=== PATIENT | female | born 1970 | race Caucasian/White ===

== ENCOUNTER 2021-07-30 09:30 | Outpatient (CLI) | payer BC, SELFPAY ==
--- NOTE | ~2021-07-30 | CT_ITS ---
EXAMINATION: CT diagnostic chest w con DATE: 07/30/2021 09:55 INDICATION: Lung nodule, history of colon cancer TECHNIQUE: Transaxial computed tomographic images of the chest were obtained after the administration of 75 cc of Omnipaque 350 intravenous contrast. The dose-length product (DLP) was 325.35 mGy-cm. Ite rative reconstruction was used. COMPARISON: None FINDINGS: There is a 7 mm lymph node associated with the minor fissure. There is mild atelectasis of the lungs. No pleural effusion or pneumothorax is identified. A right internal jugular Port-A-Cath en ds with its tip in the distal superior vena cava. No pathologically enlarged thoracic lymph nodes are identified. The heart size is normal. There is mild thoracic spondylosis. IMPRESSION: 1. No acute cardiopulmonary abnormality. Reviewed, dictated and finalized at location B.
== END 2021-07-30 09:31 | disposition home or self-care (01) ==
LOC: ANHIMG 09:33
PROVIDERS: PCP Internal Medicine; Visit Provider Internal Medicine Hematology & Oncology
DX: R91.1 Solitary pulmonary nodule (principal)
CPT/HCPCS: 71260; Q9967

== ENCOUNTER 2021-09-27 13:50 | Outpatient (CLI) | payer BC, SELFPAY ==
[2021-09-27 14:30] LABS: Appearance Urine Clear (Clear); Bilirubin Urine Negative (Negative); Blood Urine Trace-lysed (Negative); Color Urine Yellow (Yellow); Glucose Urine UA Negative (Negative); Ketones Urine Negative (Negative); Leukocyte Esterase Ur 1+ LEU/UL (Negative); Nitrate Urine Negative (Negative); Protein Urine Negative (Negative); Specific Grav Ur 1.015 (1.001-1.035); Urobilinogen Urine 0.2 mg/dL (<2.0)
[2021-09-27 14:37] LABS: Bacteria Urine Trace /hpf; Mucus Urine Rare /lpf; RBC Urine 0-2 /hpf (0-2); Squamous Epithelial Cell Urine Few /hpf (Few)
[2021-09-27 14:40] LABS: Add Urine Microscopic? YES
== END 2021-09-27 13:51 | disposition home or self-care (01) ==
PROVIDERS: PCP Internal Medicine; Visit Provider Internal Medicine
DX: R30.0 Dysuria (principal)
CPT/HCPCS: 81001; 87086

== ENCOUNTER 2021-12-07 08:28 | Outpatient (CLI) | payer BC, SELFPAY ==
--- NOTE | ~2021-12-07 | CT_ITS ---
EXAMINATION: CT abdomen pelvis w con DATE: 12/07/2021 08:53 INDICATION: Malignant neoplasm of transverse colon. TECHNIQUE: Computed tomography (CT) of the abdomen and pelvis was performed with 100 mL Omnipaque 350 intravenous contrast. Automated exposure control and iterative reconstruction technique were employe d. The dose-length product was 1422.99 mGy-cm. COMPARISON: Chest CT 07/30/2021 FINDINGS: The visualized portions of the lung bases are clear without pneumonia or pleural effusion. The heart size is normal. No pericardial effusion. There is diffuse hepatic steatosis. The gallbladde r, spleen, pancreas, adrenal glands, and kidneys are normal. There is diverticulosis of the colon wit hout evidence of diverticulitis. There is an anastomosis in the hepatic flexure of the colon. There a re no dilated loops of bowel. The appendix is normal. There are no pathologically enlarged lymph node s. There is no free intraperitoneal fluid. There is thoracolumbar levoscoliosis and mild spondylosis. IMPRESSION: 1. No evidence of metastatic disease. Reviewed, dictated and finalized at location A.
== END 2021-12-07 08:29 | disposition home or self-care (01) ==
PROVIDERS: PCP Internal Medicine; Visit Provider Internal Medicine Hematology & Oncology
DX: C18.4 Malignant neoplasm of transverse colon (principal)
CPT/HCPCS: 74177; Q9967

== ENCOUNTER 2021-12-21 11:01 | Outpatient (CLI) | payer BC, SELFPAY ==
[2021-12-21 11:52] LABS: Appearance Urine Cloudy (Clear); Bilirubin Urine Negative (Negative); Blood Urine 2+ (Negative); Glucose Urine UA Negative (Negative); Ketones Urine Negative (Negative); Leukocyte Esterase Ur 3+ LEU/UL (Negative); Nitrate Urine Positive (Negative); Protein Urine Negative (Negative); Specific Grav Ur 1.015 (1.001-1.035); Urobilinogen Urine 0.2 mg/dL (<2.0)
[2021-12-21 11:57] LABS: Add Urine Microscopic? YES; Color Urine Light Yellow (Yellow)
[2021-12-21 12:01] LABS: Bacteria Urine Trace /hpf; Squamous Epithelial Cell Urine Rare /hpf (Few); WBC Urine >75 /hpf
== END 2021-12-21 11:02 | disposition home or self-care (01) ==
LOC: ANHLAB 11:02
PROVIDERS: PCP Internal Medicine; Visit Provider Internal Medicine
DX: R30.0 Dysuria (principal)
CPT/HCPCS: 81001; 87077; 87086; 87186

== ENCOUNTER 2022-03-02 09:00 | Outpatient (RCR) | payer BC, SELFPAY ==
--- NOTE | 2022-01-31 16:11 | PTOPEVAL1 ---
Assessment and note entered by Ana Lim, PT, DPT Evaluation Information Assessment Status Evaluation Diagnosis back pain Onset 8-9 years Subjective Information Pt states she has had back pain for a while now, she states throughout the middle of her back down to her R hip. Pt recently finished chemo treatments and this saw some arthritis on her spine . Pt states she usually just pushed through the pain when she is hurting. She states she likes to exercise and would like to do so but her back pain is a limiting factor. Reported Pain Level Pain Score 3: Self Report Assessment PT Clinical Summary Mary presents to therapy today for her initial evaluation with a diagnosis of low back pain. Today she demonstrates an increased lumbar lordosis in standing and this is when she reports her most difficultly, along with carrying her grandson. She demonstrates a mildly weak core as well as hip abductors. Skilled physical therapy services are indicated to education on body mechanics, practice safe lifting techniques, for general strengthening, to manage pain, and to return to baseline function. Plan of Care Interventions Manual Therapy,Neuro Re-education,Patient/ Caregiver Educati,Therapeutic Activities, Therapeutic Exercise PT Services Indicated Yes Treatment Frequency and 1x/wk for 4 wks Duration These treatments will address the objective and functional deficits as defined above. The patient will be advanced safely and appropriately in order for the patient to progress towards his/her prior level of function. Additional exercises will be introduced and as well as a comprehensive home exercise program upon discharge, if needed, ?to ensure carryover of functional gains achieved in the clinic. This treatment plan has been reviewed and agreement upon by the patient.
--- NOTE | 2022-02-18 10:07 | PCPTNOTE ---
Patient called day of appointment to cancel due to her being ill and needing to stay home to take care of him.
--- NOTE | 2022-03-02 09:43 | PTOPDC ---
Assessment and note entered by Ana Lim, PT, DPT Evaluation Information Assessment Status Discharge Diagnosis back pain Onset 8-9 years Subjective Information Pt states she is feeling better. She states she knows what techniques to implement when she is in pain. She states it is amazing how quickly she has been results. She kept her grandson for 3 days and was carrying him and taking care of him, without an increase in symptoms. She states she does not have any back stiffness at this time. pt reports 90% improvement in overall symptoms. Pt states therapy has been life changing. Reported Pain Level Pain Score 0: Self Report Assessment PT Clinical Summary Mary presents to therapy today for her progress report following 3 visits of skilled therapy and participation in a home exercise program to treat her diagnosis of low back pain. Today she report 0 /10 pain in the last week, 90% improvement, and no functional limitations. She reports excellent compliance with her HEP. She has progressed her lumbar ROM to WNL, improved her kylah LE strength, and improved her body awareness. She no longer requires skilled therapy services and will be discharged at this time. Plan of Care PT Services Indicated No Treatment Frequency and to be discharged Duration
== END 2022-03-03 16:37 | disposition home or self-care (01) ==
LOC: ANHGOSHPT 09:00
PROVIDERS: PCP Internal Medicine; Visit Provider Internal Medicine
DX: M54.9 Dorsalgia, unspecified (principal)
CPT/HCPCS: 97110; 97112; 97140; 97161; 97530

== ENCOUNTER 2022-03-14 13:56 | Outpatient (CLI) | payer BC, SELFPAY ==
--- NOTE | ~2022-03-14 | CT_ITS ---
EXAMINATION: CT abdomen pelvis w con DATE: 03/14/2022 14:49 INDICATION: Colon cancer. TECHNIQUE: Computed tomography (CT) of the abdomen and pelvis was performed with 100 mL Omnipaque 350 intravenous contrast. Automated exposure control and iterative reconstruction technique were employe d. The dose-length product was 1267.41 mGy-cm. COMPARISON: CT abdomen and pelvis 12/07/2021 FINDINGS: The visualized portions of the lung bases demonstrate mild atelectasis. No pleural effusion . The heart size is normal. No pericardial effusion. There is diffuse hepatic steatosis, worst at the hilum and adjacent to ligamentum teres. The gallbladder, spleen, pancreas, adrenal glands, and kidne ys are normal. There is a 2.9 cm cyst in right ovary, likely benign. There is diverticulosis of the c olon without evidence of diverticulitis. There is an anastomosis in the splenic flexure of the colon. The appendix is normal. There are no pathologically enlarged lymph nodes. There is no free intraperi toneal fluid. There is thoracolumbar levoscoliosis and mild spondylosis. IMPRESSION: 1. No specific evidence of metastatic disease. Reviewed, dictated and finalized at location A. LASTER
[2022-03-14 15:48] LABS: Basophils Percent Auto 0.4 % (0.2-1.2); Eosinophils Absolute Auto 0.1 K/mm3 (0-0.3); Eosinophils Percent Auto 1.7 % (0-4.4); Hematocrit 39.7 % (37.0-47.0); Hemoglobin 13.2 g/dL (12.0-15.0); Immature Granulocyte Absolute 0.01 K/mm3 (0.00-0.031); Immature Granulocyte Percent A 0.2 % (0-0.5); Lymphocytes Absolute Auto 1.73 K/mm3 (0.9-3.2); Lymphocytes Percent Auto 33.1 % (18.3-44.2); Mean Corpuscular HGB Conc 33.2 g/dl (32-36); Mean Corpuscular Hemoglobin 30.7 pg (26-34); Mean Corpuscular Volume 92.3 fl (80-100); Mean Platelet Volume 9.1 fl (7.4-10.4); Monocytes Absolute Auto 0.2 K/mm3 (0.1-0.6); Monocytes Percent Auto 4.6 % (2.6-8.5); Neutrophils Absolute Auto 3.1 K/mm3 (1.3-6.7); Platelet Count Result 195 k/mm3 (150-375); Red Cell Distribution Width 11.9 % (11.5-14.5); White Blood Count 5.2 K/mm3 (4.5-10.0)
[2022-03-14 15:58] LABS: Alanine Aminotransferase 25 U/L (6-35); Albumin Level 5.1 g/dL (3.5-5.1); Alkaline Phosphatase 105 U/L (38-126); Anion Gap 15 mmol/L (8-16); Aspartate Amino Transferase 31 U/L (14-36); Bilirubin,Total 0.5 mg/dL (0.2-1.3); Blood Urea Nitrogen 7 mg/dL (7-17); Calcium 9.2 mg/dL (8.4-10.2); Carbon Dioxide 29 mmol/L (22-30); Chloride 98 mmol/L (98-107); Cholesterol 271 mg/dL (0-200); Estimated Glomerular Filt Rate > 60; Glucose 97 mg/dL (65-110); HDL Direct 44 mg/dL; Potassium 3.7 mmol/L (3.4-5.0); Sodium 142 mmol/L (137-145); Triglycerides 124 mg/dL (<150)
[2022-03-14 15:59] LABS: Hemoglobin A1C 5.6 % (<5.7)
[2022-03-14 16:09] LABS: LDL Cholesterol Direct 152 mg/dL
[2022-03-14 16:48] LABS: Carcinoembryonic Antigen 1.9 ng/mL (0.0-3.0)
== END 2022-03-14 13:57 | disposition home or self-care (01) ==
PROVIDERS: Clinical Nurse Specialist; PCP Internal Medicine; Visit Provider Internal Medicine Hematology & Oncology
DX: R73.9 Hyperglycemia, unspecified (principal); C18.4 Malignant neoplasm of transverse colon; E78.5 Hyperlipidemia, unspecified; I10 Essential (primary) hypertension
CPT/HCPCS: 36415; 74177; 80053; 80061; 82378; 83036; 84443; 85025; Q9967

== ENCOUNTER 2022-03-29 01:16 | Day surgery (SDC) | payer BC, SELFPAY ==
[2022-03-25 14:17] VITALS: BMI 34.4
--- NOTE | 2022-03-25 14:24 | PC.NURSE ---
Report to the Outpatient Waiting Room, entrance under the green pavilion located off [facility], at time 1130 on date 03/29/22. Planned Procedure Time: 1330. Time changes happen often and if your time is changed the preop area will call you the afternoon before. - You and your visitor will be asked to self-screen and do not enter if you have any COVID symptoms. - Only one visitor is requested with a max of two and NO children visitors are allowed at this time. - The patient visitor may be requested to leave or wait in car when not with patient due to distancing restrictions. - A mask is optional within the hospital. Patients may have clear liquids (water, carbonated beverages, clear teas, apple juice) until 3 hours prior to surgery with a maximum of 20 ounces. - No food from midnight until time of surgery Take the following medications with a SIP of water the morning of surgery: NONE Medications to discontinue per physician: N/A Date to take last dose: N/A Please no make-up, nail barbadian, hairspray, perfume, deodorant, or body powder the day of surgery. No jewelry (including any body piercings) or valuables the day of surgery, leave them at home. Please take a shower or bath the night before, or the morning of, surgery with an antibacterial soap. Wear comfortable, loose fitting clothing. - Jewelry must be removed prior to entering the operating room. Rings and piercings that are not removed may be cut off. - The hospital will not accept responsibility for valuables. - Please leave all valuables, including medications, at home the day of surgery. If you are going home after surgery, a licensed mobile lounge driver must drive you home. - NO public transportation without another adult if you receive anesthesia. - We recommend that an adult stay with you for 24 hours following discharge. - We also recommend that you do not drive, make important decision, drink alcoholic beverages, or take any drugs that were not prescribed by your health care provider for at least 24 hours after your discharge time. Follow any additional instructions given to you from your surgeon. If you or anyone in your household have experienced Covid symptoms in the past week, please notify your surgeon or the nurse liaison at the phone number below for possible testing. Telephone instructions given to PT - SIDNEY BIRMINGHAM and asked if any additional questions and then verbalized understanding. Patient advised to call surgeon office or pre surgery nurse liaison [phone] if any additional questions.
--- NOTE | 2022-03-29 08:58 | P.PNAN_ITS ---
Anes - Initial Pre Proc Eval Procedure: Operation Date: 03/29/22 13:30 Proposed Procedures p Removal Marisabel Cath - Traci Barr MD Date/Time: 03/29/22 08:58 Surgeon: Traci Barr MD Pre Op Diagnosis: malig neoplasm transverse colon Patient Data Age: 52 Gender: F Height: 1.71 m Weight: 101.15 kg Allergies Allergy/AdvReac Type Severity Reaction Status Date / Time Sulfa (Sulfonamide Allergy Unknown Swelling Verified 03/29/22 11:35 Antibiotics) chlorhexidine AdvReac Mild Rash Verified 03/29/22 11:35 codeine AdvReac Mild Nausea and Verified 03/29/22 11:35 Vomiting meperidine AdvReac Mild Nausea and Verified 03/29/22 11:35 Vomiting Home Medications Medication Instructions Recorded Confirmed Type omeprazole 20 mg capsule,delayed 20 mg PO PRN PRN Heartburn 03/25/22 03/29/22 History release Patient hx anesthesia problems: none Family hx anesthesia problems: none Results Review: All pre-operative results and documents have been reviewed as part of the pre- operative evaluation. [facility] Past Medical History Medical History Colon cancer Essential hypertension Hyperlipidemia Obesity Surgical History Surgical History History of Family History Family History Grandparent Heart abnormality Mother Asthma Grandparent Diabetes mellitus Social History Social History Smoking packs per day: 2 Smoking cigarettes per day: 40.0 Years smoked: 17 Smoking pack-years: 34.00 Smoking status: Former smoker Tobacco type: cigarettes Smoking end date: 05/08/01 Alcohol intake: never Substance use: never Substance use type: does not use Living arrangements: with family Spiritual care concerns: No Anes - Eval Final PreProcedure Day of Procedure 03/29/22 08:58 Patient weight: obese Heart: regular rate and rhythm Lungs: clear to auscultation and normal air movement Airway: Mallampati scale class II Neurological: alert and oriented Last oral intake: >/= 8 hours ASA classification: III Emergent: no Anesthetic plan: proceed Anesthesia type and monitoring: general GIVS Results Review: All pre-operative results and documents have been reviewed as part of the pre- operative evaluation. Informed Consent: The patient's anesthetic plan and its attendant risks and benefits were discussed with the patient/family/POA. Questions were solicited and answers provided to the satisfaction of the patient/family/POA.
[2022-03-29 11:45] VITALS: BP 129/78; PULSE 64; RESP 16; TEMP 36.5; O2SAT 99
--- NOTE | 2022-03-29 11:48 | PM.IMHP ---
H&P: HPI History of Present Illness Date/Time: 03/29/22 11:48 Chief Complaint: colon cancer Narrative: Pt is a 52 y/o F presenting for RIJ VAD removal. Pt is s/p adjuvant tx of colon cancer. Pt had VAD placed 04/27 and reports no issues c VAD. Review of Systems Review of Systems: All systems reviewed & are unremarkable except as noted in HPI and below PMFSH Past Medical History Medical History Colon cancer Essential hypertension Hyperlipidemia Obesity Surgical History Surgical History History of Family History Family History Grandparent Heart abnormality Mother Asthma Grandparent Diabetes mellitus Social History Social History Smoking packs per day: 2 Smoking cigarettes per day: 40.0 Years smoked: 17 Smoking pack-years: 34.00 Smoking status: Former smoker Tobacco type: cigarettes Smoking end date: 05/08/01 Alcohol intake: never Substance use: never Substance use type: does not use Living arrangements: with family Spiritual care concerns: No Meds Home Medications and Allergies Home Medications Medication Instructions Recorded Confirmed Type omeprazole 20 mg capsule,delayed 20 mg PO PRN PRN Heartburn 03/25/22 03/29/22 History release Allergies Allergy/AdvReac Type Severity Reaction Status Date / Time Sulfa (Sulfonamide Allergy Unknown Swelling Verified 03/29/22 11:35 Antibiotics) chlorhexidine AdvReac Mild Rash Verified 03/29/22 11:35 codeine AdvReac Mild Nausea and Verified 03/29/22 11:35 Vomiting meperidine AdvReac Mild Nausea and Verified 03/29/22 11:35 Vomiting Vital Signs Vital Signs - 24 hr 03/29/22 11:45 Temperature 36.5 C Pulse Rate 64 Respiratory Rate 16 Blood Pressure 129/78 Pulse Oximetry 99 Oxygen Delivery Room Air Exam Const: General: cooperative, comfortable and no acute distress Chest: Other: RIJ VAD - C/D/I Resp: Auscultation: clear to auscultation bilaterally Cardio: Rate: regular rate Rhythm: regular rhythm GI: Inspection: normal to inspection Assessment and Plan Assessment and plan (1) Colon cancer: Code(s): C18.9 - Malignant neoplasm of colon, unspecified Status: Acute Assessment and Plan: s/p surgery and adj tx, will remove VAD today
--- NOTE | 2022-03-29 11:51 | WPDHPUPDATE1 ---
History and Physical Update Update Date/Time: 03/29/22 11:51 History and Physical has been reviewed, including an updated exam of the patient. There are NO changes in the patient's condition. Risks, benefits, and alternatives have been discussed and questions answered. Patient agrees to proceed with procedure.
[2022-03-29] MEDS: LACTATED RINGERS 1,000 ML 30 ML IV CONT (12:00)
[2022-03-29] MEDS: BUPIVACAINE/EPINEPHRINE 0.25% 50 ML VIAL 30 ML INFILTRATE (13:05)
[2022-03-29 13:16] VITALS: BP 104/50; PULSE 93; RESP 16
--- NOTE | 2022-03-29 13:25 | P.OP_ITS ---
Procedure Note - Detailed Date of Procedure 03/29/22 Pre-op Diagnosis colon cancer s/p treatment Post-op Diagnosis Same Procedure Performed removal R chest VAD Surgeon Traci Barr MD Anesthesia MAC and Local Indications 52 y/o F s/p treatment for colon cancer. Pt had R sided VAD placed about a year ago. Findings RIJ VAD Description of Procedure The patient was taken to the operating room and placed in the supine position. The patient was then prepped and draped in the normal sterile fashion. A time- out was then done to verify the patient's identity, as well as the procedure being performed. I began by localizing the area of the previously placed port in the right chest. After the area was adequately anesthetized, I made an incision through the previous incision to gain access to the port in the subcutaneous tissue. I was then able to identify the port and using dissection with the Bovie cautery, I was able to free the reservoir from the subcutaneous pocket. The reservoir was being held in by 2 sutures and these were subsequently cut. I was then able to remove the reservoir from the pocket. I then removed the catheter from the right internal jugular vein in full. I then held pressure at the level the right internal jugular vein for approximately 5 minutes. Hemostasis was noted and I irrigated the pocket. I then closed the subcutaneous tissue with 3-0 Vicryl suture. The skin was closed with 4-0 Monocryl subcuticular suture. Dermabond was placed on the wound. The patient tolerated the procedure well and was alert and awake in the operating room postoperative. The patient will be sent to the recovery room in stable condition. Estimated Blood Loss 5 Drains No Packing No Pathology None sent Complications No immediate complications Condition Stable Disposition PACU [facility] Billing Surgery - Charge Forward: Surgery Billing
[2022-03-29 13:45] VITALS: BP 112/59; PULSE 71; RESP 16
[2022-03-29 14:10] VITALS: BP 98/67; PULSE 59; RESP 20
== END 2022-03-29 14:14 | disposition home or self-care (01) ==
PROVIDERS: PCP Internal Medicine; Visit Provider Surgery
PROC: (CPT 36589; principal; 2022-03-29 13:30)
DX: Z45.2 Encounter for adjustment and management of vascular access device (principal); Z85.038 Personal history of other malignant neoplasm of large intestine; Z92.21 Personal history of antineoplastic chemotherapy; I10 Essential (primary) hypertension; E78.5 Hyperlipidemia, unspecified; E66.9 Obesity, unspecified; Z68.34 Body mass index [BMI] 34.0-34.9, adult; Z87.891 Personal history of nicotine dependence
CPT/HCPCS: 36590; J1100; J2250; J2405; J2704; J3010; J7120

== ENCOUNTER 2022-04-07 09:59 | Outpatient (CLI) | payer BC, SELFPAY ==
--- NOTE | ~2022-04-07 | MM_ITS ---
EXAMINATION: MM screening pravin BI w adrian HISTORY: Screening mammogram TECHNIQUE: Craniocaudal and mediolateral oblique 3-D tomosynthesis images were obtained and synthetic 2-D images were generated. CAD analysis was submitted and interpreted. COMPARISON: None, baseline BREAST PARENCHYMAL COMPOSITION: There are scattered areas of fibroglandular density. FINDINGS: No suspicious mass, calcification, or architectural distortion are identified in either isaura ast to suggest malignancy. IMPRESSION: 1. No mammographic evidence of malignancy. 2. Recommend routine screening mammography in one year. BI-RADS Category 1: Negative Reviewed, dictated and finalized at location A. HEALTH NURSE EDUCATOR
== END 2022-04-07 10:00 | disposition home or self-care (01) ==
PROVIDERS: PCP Internal Medicine; Visit Provider Clinical Nurse Specialist
DX: Z12.31 Encounter for screening mammogram for malignant neoplasm of breast (principal)
CPT/HCPCS: 77063; 77067

== ENCOUNTER 2022-04-27 14:37 | Outpatient (CLI) | payer BC, SELFPAY ==
--- NOTE | ~2022-04-27 | DEXA_ITS ---
Bone Density Report Name: SIDNEY BIRMINGHAM Age: 52 Sex: Female Ethnicity: White Date of : 1970 Indication: postmenopausal; screening for osteoporosis; height loss; cancer; Referring Provider: BUBBA HALL Study: Bone densitometry was performed. Exam Date: April 27, 2022 Accession number: [id number] Bone Density: Region BMD T-score Z-score Classification AP Spine(L1-L4) 1.083 0.3 1.3 Normal Femoral Neck (Left) 0.846 0.0 1.0 Normal Total Hip (Left) 0.951 0.1 0.7 Normal Femoral Neck (Right) 0.801 -0.4 0.6 Normal Total Hip (Right) 0.906 -0.3 0.3 Normal Total Hip Mean 0.928 -0.1 0.5 Normal World Health Organization criteria for BMD impression classify patients as: Normal (T-score at or above -1.0), Osteopenia (T-score between -1.0 and -2.5), or Osteoporosis (T-score at or below -2.5). 10-year Fracture Risk: FRAX not reported because: All T-scores for Spine Total, Hip Total, Femoral Neck at or above -1.0 Clinical Information Provided by Patient: Has the following medical conditions: Cancer Patient maximum height was 68.5 Menopause Age: 48 No regular weight bearing exercise Does not regularly consume dairy products Drinks caffeinated beverages Onset of menses at age 11 Number of children 2 Impression: The patient has normal bone mass. Discussion: BONE DENSITY IS ABOVE THE MINIMUM DESIRABLE LEVEL AT ALL SKELETAL SITES TESTED. This patient?s bone mineral density is above the minimum desirable level (T-score -1.0 or better) at all sites measured. The patient should follow a healthful lifestyle (good nutrition with adequate calcium and vitamin D, and appropriate weight-bearing exercise). Follow-Up: Consider repeating this study in 5 years or sooner if there is some new clinical indication. Reported by: CRISTIAN on 04/27/2022 3:01:00 PM. Reviewed, dictated and finalized at location ASandra KNOX
== END 2022-04-27 14:38 | disposition home or self-care (01) ==
LOC: ANHIMG 14:40
PROVIDERS: PCP Internal Medicine; Visit Provider Obstetrics & Gynecology Gynecology
DX: Z78.0 Asymptomatic menopausal state (principal)
CPT/HCPCS: 77080

== ENCOUNTER 2022-09-06 06:34 | Outpatient (CLI) | payer BC, SELFPAY ==
--- NOTE | ~2022-09-06 | CT_ITS ---
EXAMINATION: CT abdomen pelvis w con DATE: 09/06/2022 07:21 INDICATION: Malignant neoplasm of transverse colon. TECHNIQUE: Computed tomography (CT) of the abdomen and pelvis was performed with 100 mL Omnipaque 350 intravenous contrast. Automated exposure control and iterative reconstruction technique were employe d. The dose-length product was 1311.46 mGy-cm. COMPARISON: CT abdomen and pelvis 03/14/2022 FINDINGS: The visualized portions of the lung bases are clear without pneumonia or pleural effusion. The heart size is normal. No pericardial effusion. The liver, gallbladder, spleen, pancreas, adrenal glands, and kidneys are normal. There is diverticulosis of the colon without evidence of diverticulit is. There are no dilated loops of bowel. There is an anastomosis in the splenic flexure of the colon. There are no dilated loops of bowel. The appendix is normal. There are no pathologically enlarged ly mph nodes. There is no free intraperitoneal fluid. There is mild atherosclerosis of abdominal aorta. There is a 2.8 cm cyst in the right ovary, likely benign. There is lumbar levoscoliosis and mild spon dylosis. IMPRESSION: 1. No evidence of metastatic disease. Reviewed, dictated and finalized at location A.
== END 2022-09-06 06:35 | disposition home or self-care (01) ==
PROVIDERS: PCP Internal Medicine; Visit Provider Internal Medicine Hematology & Oncology
DX: C18.4 Malignant neoplasm of transverse colon (principal)
CPT/HCPCS: 74177; Q9967

== ENCOUNTER → 2022-10-31 10:04 | Outpatient (CLI) | payer BC, SELFPAY ==
--- NOTE | ~2022-10-31 | XR_ITS ---
Lumbosacral Spine: AP and lateral views Clinical History: Pain Findings: There is 20 degree levoscoliosis of the lumbar spine. There is moderate to advanced facet a rthropathy throughout the lumbar spine. There is mild degenerative disc narrowing at L3-L4 and L4-L5. The intervertebral disc spaces are preserved. The sacroiliac joints are normally outlined. Impression: 20 degrees levoscoliosis with moderate degenerative spondylitic changes, as above. Reviewed, dictated and finalized at location . Impression: 20 degrees levoscoliosis with moderate degenerative spondylitic changes, as abo ve.
== END ==
PROVIDERS: PCP Clinical Nurse Specialist; Visit Provider Clinical Nurse Specialist
DX: M47.26 Other spondylosis with radiculopathy, lumbar region (principal)
CPT/HCPCS: 72100

== ENCOUNTER → 2022-11-04 13:00 | Outpatient (CLI) | payer BC, SELFPAY ==
--- NOTE | ~2022-11-04 | MR_ITS ---
EXAMINATION: MR lumbar spine wo con DATE: 11/04/2022 13:35 INDICATION: Lumbar spondylosis without myelopathy or radiculopathy TECHNIQUE: Magnetic resonance imaging (MRI) of the lumbar spine was performed without intravenous con trast. Sequences included sagittal T2-weighted FSE, sagittal T2-weighted FS FSE, sagittal T1-weighted FSE, and axial T2-weighted FSE. COMPARISON: Lumbar spine radiographs dated 10/31/2022 FINDINGS: 20 degrees lumbar levorotoscoliosis measured between T12 and L4. 1-2 mm anterolisthesis L1 on L2. Julieta tebral body heights are normal. Small Schmorl's node along both sides of the T10-T11 and T11-T12 disc space. Bone marrow signal is normal throughout. Moderate disc height loss at T10-T11 and T11-T12 . M ild right-sided disc height loss at L1-L2, L2-L3 and mild more diffuse disc height loss at L3-L4 and L4-L5. The conus medullaris terminates at T12-L1. There is normal signal in the caudal spinal cord. P aravertebral soft tissues are unremarkable. The following disc levels are specifically discussed: T12-L1: The disc does not extend beyond the endplate margin. There is mild bilateral facet joint oste oarthritis. There is no neural foraminal stenosis. There is no central canal stenosis. L1-L2: Disc is bulging. There is an annular fissure with disc extrusion extending 1.7 cm cephalad fro m the level of the inferior endplate of L1 into the left neural foramen and which narrows the left la teral recess. There is moderate bilateral facet joint osteoarthritis. There is mild right and moderat e left neural foraminal stenosis. There is mild central canal stenosis. L2-L3: Disc is bulging with superimposed left foraminal zone annular fissure. There is moderate bilat eral facet joint osteoarthritis. There is mild bilateral neural foraminal stenosis. There is mild galo tral canal stenosis. L3-L4: Disc is bulging. There is hypertrophy of the ligamentum flavum. There is moderate bilateral f acet joint osteoarthritis. There is approximately 2 to 3 mm AP separation of the articular surface of the facet joints which is filled with fluid which suggests possibility of a similar degree of potent ial anterolisthesis. There is mild to moderate bilateral neural foraminal stenosis. There is moderate central canal stenosis. L4-L5: Disc is mildly bulging. There is mild left and moderate right facet joint osteoarthritis. Ther e is moderate bilateral neural foraminal stenosis. There is mild central canal stenosis. L5-S1: The disc does not extend beyond the endplate margin. There is moderate bilateral facet joint o steoarthritis. There is no neural foraminal stenosis. There is no central canal stenosis. IMPRESSION: 1. 20 degrees lumbar levoscoliosis with moderate spondylosis. This most notable for annular fissure a nd large disc arising from L1-L2 and which extends cephalad into the left L1-L2 neural foramen. Reviewed, dictated and finalized at location A. IMPRESSION: 1. 20 degrees lumbar levoscoliosis with moderate spondylosis. This most notable for annular fissure and large disc arising from L1-L2 and which extends cephal ad into the left L1-L2 neural foramen.
== END ==
PROVIDERS: PCP Clinical Nurse Specialist; Visit Provider Clinical Nurse Specialist
DX: M47.816 Spondylosis without myelopathy or radiculopathy, lumbar region (principal)
CPT/HCPCS: 72148

== ENCOUNTER 2022-11-09 12:57 | Outpatient (CLI) | payer BC, SELFPAY ==
[2022-11-09 13:24] LABS: Appearance Urine Clear (Clear); Bilirubin Urine Negative (Negative); Blood Urine Negative (Negative); Color Urine Yellow (Yellow); Glucose Urine UA Negative (Negative); Ketones Urine Negative (Negative); Leukocyte Esterase Ur Negative LEU/UL (Negative); Nitrate Urine Negative (Negative); Protein Urine Negative (Negative); Specific Grav Ur 1.006 (1.001-1.035); Urobilinogen Urine 0.2 mg/dL (<2.0)
[2022-11-09 13:29] LABS: Add Urine Microscopic? NO
== END 2022-11-09 12:58 | disposition home or self-care (01) ==
LOC: ANHLAB 12:58
PROVIDERS: PCP Clinical Nurse Specialist; Visit Provider Nurse Practitioner
DX: R39.9 Unspecified symptoms and signs involving the genitourinary system (principal)
CPT/HCPCS: 81001; 81003

== ENCOUNTER → 2023-04-04 08:57 | Outpatient (CLI) | payer BC, SELFPAY ==
--- NOTE | ~2023-04-04 | XR_ITS ---
Right Knee Technique: AP, lateral, and sunrise views were obtained. Clinical History: Pain Findings: No fracture or dislocation is seen. Osseous alignment is anatomic. Minimal patellar spurrin g noted. Soft tissues are unremarkable. No joint effusion. Impression: Minimal patellar spurring. Reviewed, dictated and finalized at location . CUTTING MACHINE OPERATOR Impression: Minimal patellar spurring.
== END ==
PROVIDERS: PCP Clinical Nurse Specialist; Visit Provider Clinical Nurse Specialist
DX: M25.561 Pain in right knee (principal)
CPT/HCPCS: 73562

== ENCOUNTER 2023-04-28 14:02 | Outpatient (CLI) | payer BC, SELFPAY ==
--- NOTE | ~2023-04-28 | MM_ITS ---
EXAMINATION: MM screening pravin BI w adrian HISTORY: Screening TECHNIQUE: Craniocaudal and mediolateral oblique 3-D tomosynthesis images were obtained and synthetic 2-D images were generated. CAD analysis was submitted and interpreted. COMPARISON: 04/07/2022 BREAST PARENCHYMAL COMPOSITION: Breast composed of scattered areas of fibroglandular density FINDINGS: There is no evidence of suspicious mass, calcification, or architectural distortion to sugg est malignancy in either breast. There has been no suspicious interval change. IMPRESSION: 1. No mammographic evidence of malignancy. 2. Recommend routine screening mammography in one year. BI-RADS Category 1: Negative Reviewed, dictated and finalized at location A. TRICAL MAINTENANCE WORKER
== END 2023-04-28 14:03 | disposition home or self-care (01) ==
LOC: CHSIMG 14:04
PROVIDERS: PCP Clinical Nurse Specialist; Visit Provider Internal Medicine
DX: Z12.31 Encounter for screening mammogram for malignant neoplasm of breast (principal)
CPT/HCPCS: 77063; 77067

== ENCOUNTER 2023-05-22 08:17 | Outpatient (CLI) | payer BC, SELFPAY ==
--- NOTE | ~2023-05-22 | CT_ITS ---
CT of the Abdomen and Pelvis: Indication: Colon cancer Technique: 2.5 mm axial scans were obtained through the abdomen and pelvis following intravenous adm inistration of 100 cc of Omnipaque 350. Dose reduction technique was used on this scan by utilizing a utomated exposure control and iterative reconstruction technique. The dose-length product (DLP) was 1 493.06 mGy-cm. COMPARISON: 09/06/2022 Findings: Scans through the lung bases are unremarkable. There is diffuse fatty infiltration of liver. The spleen, pancreas, gallbladder, adrenals and kidneys are within normal limits. No evidence of aortic aneurysm. No lymphadenopathy. No bowel obstruction or bowel wall thickening. Evidence of prior colonic resection with anastomosis a t the mid descending colon.. Images through the pelvis were performed. Urinary bladder unremarkable. Probable 3.3 cm right adnexal cyst. No ascites. Impression: No evidence for active malignancy or metastatic disease. Postoperative change of the colon, as noted above. Diffuse fatty infiltration of the liver. 3.3 cm right ovarian cyst. Reviewed, dictated and finalized at location . AGE AGENT SUPERVISOR Impression: No evidence for active malignancy or metastatic disease. Postoperative change o f the colon, as noted above. Diffuse fatty infiltration of the liver. 3.3 cm right ovarian cyst.
[2023-05-22 08:45] LABS: Basophils Percent Auto 0.8 % (0.2-1.2); Eosinophils Absolute Auto 0.1 K/mm3 (0-0.3); Eosinophils Percent Auto 1.7 % (0-4.4); Hematocrit 39.2 % (37.0-47.0); Hemoglobin 12.9 g/dL (12.0-15.0); Immature Granulocyte Absolute 0.01 K/mm3 (0.00-0.031); Immature Granulocyte Percent A 0.2 % (0-0.5); Lymphocytes Absolute Auto 2.23 K/mm3 (0.9-3.2); Lymphocytes Percent Auto 42.8 % (18.3-44.2); Mean Corpuscular HGB Conc 32.9 g/dl (32-36); Mean Corpuscular Hemoglobin 30.4 pg (26-34); Mean Corpuscular Volume 92.5 fl (80-100); Mean Platelet Volume 9.3 fl (7.4-10.4); Monocytes Absolute Auto 0.4 K/mm3 (0.1-0.6); Monocytes Percent Auto 7.7 % (2.6-8.5); Neutrophils Absolute Auto 2.4 K/mm3 (1.3-6.7); Neutrophils Percent Auto 46.8 % (45.5-73.1); Platelet Count Result 213 k/mm3 (150-375); Red Blood Count 4.24 M/mm3 (4.2-5.4); Red Cell Distribution Width 13.1 % (11.5-14.5); White Blood Count 5.2 K/mm3 (4.5-10.0)
[2023-05-22 08:56] LABS: Alanine Aminotransferase 49 U/L (6-35); Albumin Level 4.5 g/dL (3.5-5.1); Alkaline Phosphatase 81 U/L (38-126); Anion Gap 7 mmol/L (8-16); Aspartate Amino Transferase 42 U/L (14-36); Bilirubin,Total 0.6 mg/dL (0.2-1.3); Blood Urea Nitrogen 8 mg/dL (7-17); Calcium 9.2 mg/dL (8.4-10.2); Carbon Dioxide 30 mmol/L (22-30); Chloride 103 mmol/L (98-107); Estimated Glomerular Filt Rate > 60; Glucose 126 mg/dL (65-110); Potassium 4.2 mmol/L (3.4-5.0); Sodium 140 mmol/L (137-145)
[2023-05-22 09:28] LABS: Carcinoembryonic Antigen 1.8 ng/mL (0.0-3.0)
== END 2023-05-22 08:18 | disposition home or self-care (01) ==
LOC: ANHIMG 08:21
PROVIDERS: PCP Clinical Nurse Specialist; Visit Provider Internal Medicine Hematology & Oncology
DX: C18.4 Malignant neoplasm of transverse colon (principal); N83.201 Unspecified ovarian cyst, right side; K76.0 Fatty (change of) liver, not elsewhere classified
CPT/HCPCS: 36415; 74177; 80053; 82378; 85025; Q9967

== ENCOUNTER → 2023-06-01 14:07 | Outpatient (CLI) | payer BC, SELFPAY ==
--- NOTE | ~2023-06-01 | XR_ITS ---
XR_CERV2-3V_CR 06/01/2023 14:21 Indication: Radiculopathy. Neck pain. Procedure: 3 view cervical spine Comparison: No prior studies for comparison. Findings: Straightening of cervical lordosis. No prevertebral soft tissue swelling. There is disc irma rowing and endplate hypertrophy at C5-6. No significant abnormality of the odontoid process. Lateral masses normally aligned. Mild multilevel uncinate hypertrophy. Lung apices are normal. Impression: 1: Mild cervical spondylosis. Reviewed, dictated and finalized at location L. IMEDIA ENGINEER Impression: 1: Mild cervical spondylosis.
== END ==
PROVIDERS: PCP Clinical Nurse Specialist; Visit Provider Clinical Nurse Specialist
DX: M47.22 Other spondylosis with radiculopathy, cervical region (principal)
CPT/HCPCS: 72040

== ENCOUNTER → 2023-06-12 11:06 | Outpatient (CLI) | payer BC, SELFPAY ==
--- NOTE | ~2023-06-12 | MR_ITS ---
EXAMINATION: MR cervical spine wo con DATE: 06/12/2023 11:50 INDICATION: Cervical radiculopathy. TECHNIQUE: Magnetic resonance imaging (MRI) of the cervical spine was performed without intravenous c ontrast. COMPARISON: Cervical spine radiographs 06/01/2023 FINDINGS: There is 10 degrees levoscoliosis of cervicothoracic spine. There is mild kyphosis of cervi charisma spine. Vertebral body heights are normal. There is mildly decreased disc height at C4-C5 and mode rately decreased disc height at C5-C6. The spinal cord signal intensity is normal. The following disc levels are specifically discussed: C2-C3: The disc does not extend beyond the endplate margin. There is no uncovertebral joint osteoarth ritis. There is mild bilateral facet joint osteoarthritis. There is no neural foraminal stenosis. The re is no central canal stenosis. C3-C4: The disc does not extend beyond the endplate margin. There is no uncovertebral joint osteoarth ritis. There is severe bilateral facet joint osteoarthritis. There is no neural foraminal stenosis. T here is no central canal stenosis. C4-C5: There is a central extrusion. There is mild left uncovertebral joint osteoarthritis. There is severe left facet joint osteoarthritis. There is no neural foraminal stenosis. There is mild central canal stenosis. C5-C6: The disc is bulging. There is severe bilateral uncovertebral joint osteoarthritis. There is mo derate bilateral facet joint osteoarthritis. There is mild bilateral neural foraminal stenosis. There is mild central canal stenosis. C6-C7: The disc does not extend beyond the endplate margin. There is mild left uncovertebral joint os teoarthritis. There is mild bilateral facet joint osteoarthritis. There is mild left neural foraminal stenosis. There is no central canal stenosis. C7-T1: There is a central protrusion. There is no uncovertebral joint osteoarthritis. There is modera te bilateral facet joint osteoarthritis. There is mild bilateral neural foraminal stenosis. There is no central canal stenosis. IMPRESSION: 1. Moderate cervical spondylosis. 2. Cervicothoracic levoscoliosis. Reviewed, dictated and finalized at location A. VERY NURSE
== END ==
PROVIDERS: PCP Clinical Nurse Specialist; Visit Provider Clinical Nurse Specialist
DX: M47.22 Other spondylosis with radiculopathy, cervical region (principal)
CPT/HCPCS: 72141

== ENCOUNTER → 2023-06-19 15:26 | Outpatient (CLI) | payer BC, SELFPAY ==
--- NOTE | ~2023-06-19 | XR_ITS ---
EXAMINATION: XR knee RT min 4V DATE: 06/19/2023 15:40 INDICATION: Right knee pain and limited range of motion post hyperextension injury TECHNIQUE: Anteroposterior, 2 oblique and crosstable lateral views of the right knee were obtained COMPARISON: 04/04/2023 FINDINGS: Alignment is normal. No fracture. Joint spaces remain normal on nonweightbearing imaging. Unchanged small marginal osteophytes at the upper pole of the patella. No joint effusion/layering lipohemarthro sis. Soft tissues are unremarkable. IMPRESSION: 1. . No right knee joint effusion or acute osseous abnormality. Reviewed, dictated and finalized at location A. NICAL PROJECT LEAD
== END ==
PROVIDERS: PCP Clinical Nurse Specialist; Visit Provider Clinical Nurse Specialist
DX: M25.561 Pain in right knee (principal)
CPT/HCPCS: 73564

== ENCOUNTER → 2023-06-22 09:14 | Outpatient (CLI) | payer BC, SELFPAY ==
--- NOTE | ~2023-06-22 | MR_ITS ---
MRI of the right knee Clinical history: Chondromalacia patella Technique: Coronal proton density and proton density-weighted images, sagittal proton-density and T2 fat-sat images, and axial proton-density fat-saturated images were acquired. Findings: Anterior and posterior cruciate ligaments are intact. Medial collateral ligament and the la teral collateral ligament complex are intact. Popliteus tendon is intact. Medial and lateral menisci are intact, without evidence of tear. Articular cartilage is relatively well preserved in the medial compartment. There is a focal 7 mm gra de 4 chondral lesion at the central aspect of the lateral femoral condyle. There is high-grade chondr omalacia the patellar apex extending to the medial facet, with subchondral cystic change at the apex. Femoral trochlear cartilage is well preserved. Extensor mechanism is intact. Small joint effusion present. No Flores's cyst. Impression: High-grade chondromalacia patella, as detailed above. Additional 7 mm grade 4 chondral lesion at the lateral femoral condyle. Small joint effusion. Reviewed, dictated and finalized at location . CTION PSYCHIATRIST Impression: High-grade chondromalacia patella, as detailed above. Additional 7 mm grade 4 c hondral lesion at the lateral femoral condyle. Small joint effusion.
== END ==
PROVIDERS: PCP Clinical Nurse Specialist; Visit Provider Clinical Nurse Specialist
DX: M22.41 Chondromalacia patellae, right knee (principal); M25.461 Effusion, right knee
CPT/HCPCS: 73721

== ENCOUNTER 2023-11-29 11:21 | Outpatient (CLI) | payer BC, SELFPAY ==
[2023-11-29 11:42] LABS: Basophils Percent Auto 0.6 % (0.2-1.2); Eosinophils Absolute Auto 0.1 K/mm3 (0-0.3); Eosinophils Percent Auto 1.6 % (0-4.4); Hematocrit 40.2 % (37.0-47.0); Hemoglobin 13.2 g/dL (12.0-15.0); Immature Granulocyte Absolute 0.01 K/mm3 (0.00-0.031); Immature Granulocyte Percent A 0.2 % (0-0.5); Lymphocytes Absolute Auto 1.79 K/mm3 (0.9-3.2); Lymphocytes Percent Auto 36.7 % (18.3-44.2); Mean Corpuscular HGB Conc 32.8 g/dl (32-36); Mean Corpuscular Hemoglobin 30.1 pg (26-34); Mean Corpuscular Volume 91.8 fl (80-100); Mean Platelet Volume 9.6 fl (7.4-10.4); Monocytes Absolute Auto 0.4 K/mm3 (0.1-0.6); Monocytes Percent Auto 7.2 % (2.6-8.5); Neutrophils Absolute Auto 2.6 K/mm3 (1.3-6.7); Neutrophils Percent Auto 53.7 % (45.5-73.1); Platelet Count Result 227 k/mm3 (150-375); Red Blood Count 4.38 M/mm3 (4.2-5.4); Red Cell Distribution Width 13.1 % (11.5-14.5); White Blood Count 4.9 K/mm3 (4.5-10.0)
[2023-11-29 12:30] LABS: Alanine Aminotransferase 43 U/L (6-35); Albumin Level 5.1 g/dL (3.5-5.1); Alkaline Phosphatase 89 U/L (38-126); Anion Gap 13 mmol/L (4-12); Aspartate Amino Transferase 35 U/L (14-36); Bilirubin,Total 0.6 mg/dL (0.2-1.3); Blood Urea Nitrogen 11 mg/dL (7-17); Calcium 9.1 mg/dL (8.4-10.2); Carbon Dioxide 27 mmol/L (22-30); Chloride 100 mmol/L (98-107); Estimated Glomerular Filt Rate > 60; Glucose 114 mg/dL (65-110); Potassium 4.3 mmol/L (3.4-5.0); Sodium 140 mmol/L (137-145)
[2023-11-29 12:56] LABS: Carcinoembryonic Antigen 2.7 ng/mL (0.0-3.0)
== END 2023-11-29 11:22 | disposition home or self-care (01) ==
LOC: ANHLAB 11:23
PROVIDERS: PCP Internal Medicine; Visit Provider Internal Medicine Hematology & Oncology
DX: C18.4 Malignant neoplasm of transverse colon (principal)
CPT/HCPCS: 36415; 80053; 82378; 85025

== ENCOUNTER 2024-02-01 11:45 | Outpatient (CLI) | payer BC, SELFPAY ==
[2024-02-01 12:21] LABS: Cholesterol 254 mg/dL (0-200); HDL Direct 56 mg/dL; Triglycerides 116 mg/dL (<150)
[2024-02-01 12:32] LABS: LDL Cholesterol Direct 182 mg/dL
[2024-02-01 12:54] LABS: Vitamin D 25 Hydroxy 39.5 ng/mL
[2024-02-01 12:58] LABS: Hemoglobin A1C 5.8 % (<5.7)
== END 2024-02-01 11:46 | disposition home or self-care (01) ==
LOC: ANHLAB 11:49
PROVIDERS: PCP Internal Medicine; Visit Provider Clinical Nurse Specialist
DX: E78.5 Hyperlipidemia, unspecified (principal); I10 Essential (primary) hypertension; R73.9 Hyperglycemia, unspecified
CPT/HCPCS: 36415; 80061; 82306; 83036; 84443

== ENCOUNTER 2024-04-29 07:36 | Outpatient (CLI) | payer BC, SELFPAY ==
--- NOTE | ~2024-04-29 | MM_ITS ---
EXAMINATION: MM screening pravin BI w adrian HISTORY: Screening TECHNIQUE: Craniocaudal and mediolateral oblique 3-D tomosynthesis images were obtained and synthetic 2-D images were generated. CAD analysis was submitted and interpreted. COMPARISON: Examination was compared with multiple prior studies performed most recently on 3 and dating back to 04/07/2022 BREAST PARENCHYMAL COMPOSITION: There are scattered areas of fibroglandular density. FINDINGS: Stable parenchymal pattern without suspicious microcalcifications, architectural distortion, discrete masses or significant asymmetry. IMPRESSION: 1. No mammographic evidence of malignancy. 2. Recommend routine screening mammography in one year. BI-RADS Category 1: Negative examination. Reviewed, dictated and finalized at location A. CREAM SERVER
--- OUTSIDE RECORDS SUMMARY | 2024-05-06 08:57 | XMS_ITS | Encounter Summary ---
Author Organization [facility] Healthcare Address [address] [place] [address] Care Team Providers Care Balance Recesser Name Role Phone Julien Doan DO Primary Care Provider [phone]- [phone] Reason for Visit * MRI/CAT/PET Scan (Routine) - Closed Specialty Diagnoses / Procedures Referred By Sanyd t Referred To Contact Procedures Neuro MR Outside Reference Francis Bhatti MD [address] [place] [address] [place] [address] Phone: tel: fax: Referral ID Status Reason Start Date Expiration Date Visits Re quested Visits Authorized [id number] Closed 02/16/2024 03/17/2025 1 1 Encounter Details Date Type Department Care Team (Latest Contact Info) Description 02/16/2024 3:15 PM CDT - 02/16/2024 11:59 PM CDT Hospital Encounter [facility] [address] [place] [id number] Discharge Disposition: Discharge to home or self care Social History Tobacco Use Types Packs/Day Years Used Date Smoking Tobacco: Never Assessed Comments Unknown Sex and Gender Information Value Date Recorded Sex Assigned at Not on file Legal Sex Female 11:00 AM CDT Gender Identity Not on file Sexual Orientation Not on file documented as of this encounter Discharge Disposition Disposition Code Departure Means Destination Discharge to home or self care documented in this encounter Plan of Treatment Not on file documented as of this encounter Procedures Procedure Name Priority Date/Time Associated Diagnosis Comments NEURO MR OUTSIDE REFERENCE Routine 02/16/2024 3:15 PM CDT documented in this encounter Results * Neuro MR Outside Reference (02/16/2024 3:15 PM CDT) Impressions [facility] - 02/16/2024 3:15 PM CDT These images are for Reference purposes only and have not been reviewed by [facility]. ??There will be no report generated by a [facility] Radiologist. Narrative [facility] - 02/16/2024 3:15 PM CDT EXAMINATION: ??Images For Reference Purposes Only us Francis Bhatti MD IMG MRI PROCEDURES Final Re sult [facility] documented in this encounter Visit Diagnoses Not on filedocumented in this encounter Care Teams Balance Recesser Relationship Specialty Start Date End Date Julien Doan DO [address] [facility] [address] [place] [address] [place] [id number] PCP - General Internal Medicine 02/13/24 documented as of this encounter
--- OUTSIDE RECORDS SUMMARY | 2024-05-06 08:57 | XMS_ITS | Encounter Summary ---
Author Organization [facility] Healthcare Address [address] [place] [address] Care Team Providers Care Hospital Unit Clerk Name Role Phone Julien Doan DO Primary Care Provider [phone] Encounter Details Date Type Department Care Team (Latest Contact Info) Description 02/16/2024 12:33 PM CDT - 02/16/2024 11:59 PM CDT Hospital Encounter [facility] [address] [place] [address] Discharge Disposition: Discharge to home or self [...] Procedure Name Priority Date/Time Associated Diagnosis Comments XR TRANSFER OF OUTSIDE FILMS Routine 02/16/2024 12:33 PM CDT Diagnosis unknown documented in this encounter Results * XR Outside Reference (02/16/2024 12:33 PM CDT) Impressions [facility] - 02/16/2024 12:33 PM CDT These images are for Reference purposes only and have not been reviewed by [facility]. ??There will be no report generated by a [facility] Radiologist. Narrative [facility] - 02/16/2024 12:33 PM CDT EXAMINATION: ??Images For Reference Purposes Only us Francis Bhatti MD IMG XR PROCEDURES Final Res ult [facility] documented in this encounter Visit Diagnoses Not on filedocumented in this encounter Care Teams Hospital Unit Clerk Relationship Specialty Start Date End Date Julien Doan DO [address] [facility] [address] [address] PCP - General Internal Medicine 02/13/24 documented as of this encounter
--- OUTSIDE RECORDS SUMMARY | 2024-05-06 08:57 | XMS_ITS | Encounter Summary ---
Author Organization [facility] Healthcare Address [address] [place] [address] Care Team Providers Care Comic Writer Name Role Phone Julien Doan DO Primary Care Provider [phone]- [phone] Reason for Referral * Diagnostic Imaging (Routine) - Closed Specialty Diagnoses / Procedures Referred By Contac t Referred To Contact Diagnoses Spinal deformity Procedures XR Scoliosis 6 or More Views Francis Bhatti MD [address] [facility] [address] [place] [address] Phone: tel: fax: [facility] Referral ID Status Reason Start Date Expiration Date Visits Re quested Visits Authorized [id number] Closed 03/12/2024 04/11/2025 1 1 SILO TENDER Reason for Visit * Diagnostic Imaging (Routine) - Closed Specialty Diagnoses / Procedures Referred By Contac t Referred To Contact Diagnoses Spinal deformity Procedures XR Scoliosis 6 or More Views Francis Bhatti MD [address] [facility] [address] [place] [phone] Phone: tel: fax: [facility] Referral ID Status Reason Start Date Expiration Date Visits Re quested Visits Authorized [id number] Closed 03/12/2024 04/11/2025 1 1 Encounter Details Date Type Department Care Team (Latest Contact Info) Description 03/14/2024 8:38 AM CHIP SILO TENDER - 03/14/2024 11:59 PM CHIP SILO TENDER Hospital Encounter [facility] [address] [place] [address] Spinal deformity Discharge Disposition: Discharge to home or self care Social History Tobacco Use Types Packs/Day Years Used Date Smoking Tobacco: Never Assessed Comments Unknown Sex and Gender Information Value Date Recorded Sex Assigned at Not on file Legal Sex Female 11:00 AM CDT Gender Identity Not on file Sexual Orientation Not on file documented as of this encounter Medications at Time of Discharge acetaminophen 500 mg capsule Take by mouth FA-vit Ghmzu-H-pxiu-tahmina min D3 0.8-2,000 mg-unit tablet Take by mouth ibuprofen (ADVIL,MOTRIN) 400 mg tablet Take by mouth every 6 (six) hours as needed for pain Lactobac 40-Bifido 3-S.thermop (Probiotic) 100 billion cell capsule Take by mouth magnesium oxide (MAG-OX) 400 mg (241.3 mg elemental magnesium) tablet Take by mouth omega-3 fatty acids 1,000 mg capsule Take by mouth omeprazole (PriLOSEC) 10 mg capsule Take 2 capsules (20 mg total) by mouth daily documented as of this encounter Discharge Disposition Disposition Code Departure Means Destination Discharge to home or self care documented in this encounter Plan of Treatment Not on file documented as of this encounter Procedures Procedure Name Priority Date/Time Associated Diagnosis Comments XR SCOLIOSIS 6 OR MORE VIEWS Schedule Routine, Read Routine (OP Routine) 03/14/2024 9:00 AM CHIP SILO TENDER Spinal deformity documented in this encounter Results * XR Scoliosis 6 or More Views (03/14/2024 9:00 AM CHIP SILO TENDER) Anatomical Region Laterality Modality Spine N/A Computed Radiogr aphy 03/14/2024 9:10 AM CHIP SILO TENDER Impressions 03/14/2024 9:10 AM CHIP SILO TENDER 1. ??Biconvex thoracolumbar scoliosis and decreased thoracic kyphosis with neutral truncal balance and mild right superior pelvic obliquity Electronically signed by: Ana Luisa Alves MD Narrative 03/14/2024 9:10 AM CHIP SILO TENDER EXAMINATION: XR SCOLIOSIS ??6 OR MORE VIEWS HISTORY: ??Spinal deformity FINDINGS: Standing frontal and lateral radiographs of the entire spine and lower extremities were obtained using the EOS system. An additional 4 radiographs of cervical spine are submitted. ??Comparison is made to prior radiographs 06/01/2023 and 10/31/2022. There is moderate thoracic dextroscoliosis with apex at T9 and thoracolumbar rotatory levoscoliosis with apex at L3. ??There is decreased thoracic kyphosis. ??Neutral truncal balance with mild right superior pelvic obliquity. ??There is shallow cervical kyphosis without listhesis in neutral position. ??No abnormal translation with flexion or extension. ??No acute fracture or prevertebral soft tissue swelling. ??Multilevel degenerative disc disease from C4 to C7 is greatest and moderate at C5-C6. Procedure Note Saray Alves MD - 03/14/2024 EXAMINATION: XR SCOLIOSIS 6 OR MORE VIEWS HISTORY: Spinal deformity FINDINGS: Standing frontal and lateral radiographs of the entire spine and lower extremities were obtained using the EOS system. An additional 4 radiographs of cervical spine are submitted. Comparison is made to prior radiographs 06/01/2023 and 10/31/2022. There is moderate thoracic dextroscoliosis with apex at T9 and thoracolumbar rotatory levoscoliosis with apex at L3. There is decreased thoracic kyphosis. Neutral truncal balance with mild right superior pelvic obliquity. There is shallow cervical kyphosis without listhesis in neutral position. No abnormal translation with flexion or extension. No acute fracture or prevertebral soft tissue swelling. Multilevel degenerative disc disease from C4 to C7 is greatest and moderate at C5-C6. IMPRESSION: 1. Biconvex thoracolumbar scoliosis and decreased thoracic kyphosis with neutral truncal balance and mild right superior pelvic obliquity Electronically signed by: Ana Luisa Alves MD us Francis Bhatti MD IMG XR PROCEDURES Final Res ult documented in this encounter Visit Diagnoses Diagnosis Spinal deformity documented in this encounter Care Teams Comic Writer Relationship Specialty Start Date End Date Julien Doan DO [address] [facility] [address] [address] PCP - General Internal Medicine 02/13/24 documented as of this encounter
--- OUTSIDE RECORDS SUMMARY | 2024-05-06 08:57 | XMS_ITS | Clinical Summary ---
Author Organization [facility] Address [facility] [place] [address] Care Team Providers Care Market Sales Manager Name Role Phone Julien Doan DO Primary Care Provider +1- [phone] Allergies Active Allergy Reactions Criticality Noted Date Comments Chlorhexidine Hives High 03/26/2021 Codeine Nausea And Vomiting Low 03/22/2021 Meperidine Nausea And Vomiting Low 03/22/2021 Nitrofurantoin Monohyd/M-Cryst Fever Medium 12/04/2023 Body aches as well Sulfa (Sulfonamide Antibiotics) Swelling Medium 10/24/2011 Unclassified Drug Nausea And Vomiting 10/24/2011 Pt reports does not tolerate anesthesia and pain medications well. Medications FA-vit Ihvkt-M-cbjz-vi tamin D3 0.8-2,000 mg-unit tablet Take by mouth A ctive magnesium oxide (MAG-OX) 400 mg (241.3 mg elemental magnesium) tablet Take by mouth Active Lactobac 40-Bifido 3-S.thermop (Probiotic) 100 billion cell capsule Take by mouth Active omeprazole (PriLOSEC) 10 mg capsule Take 2 capsules (20 mg total) by mouth daily Active acetaminophen 500 mg capsule Take by mouth A ctive ibuprofen (ADVIL,MOTRIN) 400 mg tablet Take by mouth every 6 (six) hours as needed for pain Active omega-3 fatty acids 1,000 mg capsule Take by mouth Active Active Problems Problem Noted Date Diagnosed Date Acute colitis 03/14/2024 Colonic mass 03/14/2024 Liver lesion 03/14/2024 Malignant neoplasm of transverse colon (CMS/HCC) 03/14/2024 Abdominal pain 03/08/2021 Hypokalemia 03/08/2021 Encounters Date Type Department Care Team Description 03/21/2024 1:00 PM FABRIC FINISHER Diagnostic [facility] [address] [facility] 6th [place] [address] [place] [address] Shabbir Coffey MD Paresthesia and pain of extremity (Primary Dx); Spinal deformity; Lumbar pain 03/14/2024 9:30 AM FABRIC FINISHER Office Visit [facility] [address] [place] [address] 6th [place] [address] [place] [address] Francis Bhatti MD Spinal deformity (Primary Dx); Cervical pain; Lumbar pain; Back pain with radiation; Degeneration of intervertebral disc of lumbar region, unspecified whether pain present; Degenerative disc disease, cervical; Malignant neoplasm of transverse colon (CMS/HCC) (HCC) 03/14/2024 8:38 AM FABRIC FINISHER - 03/14/2024 11:59 PM FABRIC FINISHER Hospital Encounter [facility] ([facility]) [address] [place] [address] Spinal deformity Discharge Disposition: Discharge to home or self care 02/16/2024 3:17 PM CDT - 02/16/2024 11:59 PM CDT Hospital Encounter [facility] ([facility]) [address] [place] [address] Discharge Disposition: Discharge to home or self care 02/16/2024 3:15 PM CDT - 02/16/2024 11:59 PM CDT Hospital Encounter [facility] ([facility]) [address] [place] [address] Discharge Disposition: Discharge to home or self care 02/16/2024 3:13 PM CDT - 02/16/2024 11:59 PM CDT Hospital Encounter [facility] ([facility]) [address] [place] [address] Discharge Disposition: Discharge to home or self care 02/16/2024 12:33 PM CDT - 02/16/2024 11:59 PM CDT Hospital Encounter [facility] ([facility]) [address] [place] [address] Discharge Disposition: Discharge to home or self care 02/15/2024 Telephone [facility] [address] [facility] 6th [place] [address] [place] [id number] Mando Inman RMA real property evaluator appt w/ MARÍA ELENA from Last 3 Months Surgical History Surgery Date Site/Laterality Comments SECTION BOWEL RESECTION Medical History Medical History Date Comments Alcoholism (CMS/HCC) (HCC) Anemia Arthritis Cancer (CMS/HCC) (HCC) Heart murmur Hypertension Peripheral neuropathy Obesity Osteoarthritis Scoliosis Urinary tract infection Varicella Weight loss Family History Medical History Relation Name Comments Hypertension Father Scoliosis Father Relation Name Status Comments Father Social History Tobacco Use Types Packs/Day Years Used Date Smoking Tobacco: Never Assessed Comments Unknown Sex and Gender Information Value Date Recorded Sex Assigned at Not on file Legal Sex Female 11:00 AM CDT Gender Identity Not on file Sexual Orientation Not on file Obstetrics History Last Filed Vital Signs Vital Sign Reading Time Taken Comments Blood Pressure - - Pulse - - Temperature - - Respiratory Rate - - Oxygen Saturation - - Inhaled Oxygen Concentration - - Weight 108 kg (238 lb) 03/14/2024 9:13 AM FABRIC FINISHER Height 168.9 cm (5' 6.5 ) 03/14/2024 9:13 AM FABRIC FINISHER Body Mass Index 37.84 03/14/2024 9:13 AM FABRIC FINISHER Plan of Treatment Health Maintenance Due Date Last Done Comments Breast Cancer Screening-Mammogram 1968 Cervical Cancer Screening 1968 Colon Cancer Screening-Colonoscopy 1968 Depression Screening 1968 Hepatitis C Screening 1968 DTaP/Tdap/Td Vaccine (1 - Tdap) 02/16/1979 Hepatitis B Screening 02/16/1986 Regular Well Visit/Exam 18-64 02/16/1986 Zoster Vaccine (1 of 2) 02/16/2018 Influenza Vaccine (#1) 2024 Pneumococcal vaccine <65 Aged Out No longer eligible based on patient's age to complete this topic Procedures Procedure Name Priority Date/Time Associated Diagnosis Comments XR SCOLIOSIS 6 OR MORE VIEWS Schedule Routine, Read Routine (OP Routine) 03/14/2024 9:00 AM FABRIC FINISHER Spinal deformity XR TRANSFER OF OUTSIDE FILMS Routine 02/16/2024 3:17 PM CDT NEURO MR OUTSIDE REFERENCE Routine 02/16/2024 3:15 PM CDT NEURO MR OUTSIDE REFERENCE Routine 02/16/2024 3:13 PM CDT XR TRANSFER OF OUTSIDE FILMS Routine 02/16/2024 12:33 PM CDT Diagnosis unknown from Last 3 Months Results * XR Scoliosis 6 or More Views (03/14/2024 9:00 AM FABRIC FINISHER) Anatomical Region Laterality Modality Spine N/A Computed Radiogr aphy 03/14/2024 9:10 AM FABRIC FINISHER Impressions 03/14/2024 9:10 AM FABRIC FINISHER 1. ??Biconvex thoracolumbar scoliosis and decreased thoracic kyphosis with neutral truncal balance and mild right superior pelvic obliquity Electronically signed by: Ana Luisa Alves MD Narrative 03/14/2024 9:10 AM FABRIC FINISHER EXAMINATION: XR SCOLIOSIS ??6 OR MORE VIEWS [...] Electronically signed by: Ana Luisa Alves MD Francis Bhatti MD IMG XR PROCEDURES Final Res ult * XR Outside Reference (02/16/2024 3:17 PM CDT) Impressions [facility] - 02/16/2024 3:17 PM CDT These images are for Reference purposes only and have not been reviewed by [facility]. ??There will be no report generated by a [facility] Radiologist. Narrative RAD_P[facility] - 02/16/2024 3:17 PM CDT EXAMINATION: ??Images For Reference Purposes Only Francis Bhatti MD IMG XR PROCEDURES Final Res ult [facility] * Neuro MR Outside Reference (02/16/2024 3:15 PM CDT) Impressions [facility] - 02/16/2024 3:15 PM CDT These images are for Reference purposes only and have not been reviewed by [facility]. ??There will be no report generated by a [facility] Radiologist. Narrative [facility] - 02/16/2024 3:15 PM CDT EXAMINATION: ??Images For Reference Purposes Only Francis Bhatti MD IMG MRI PROCEDURES Final Re sult Performing Organization Address [facility] Co de Phone Number [email or web address] * Neuro MR Outside Reference (02/16/2024 3:13 PM CDT) Impressions [facility] - 02/16/2024 3:13 PM CDT These images are for Reference purposes only and have not been reviewed by [facility]. ??There will be no report generated by a [facility] Radiologist. Narrative [facility] - 02/16/2024 3:13 PM CDT EXAMINATION: ??Images For Reference Purposes Only Francis Bhatti MD IMG MRI PROCEDURES Final Re sult Performing Organization Address [facility] de Phone Number [email or web address] * XR Outside Reference (02/16/2024 12:33 PM CDT) Impressions [facility] - 02/16/2024 12:33 PM CDT These images are for Reference purposes only and have not been reviewed by [facility]. ??There will be no report generated by a [facility] Radiologist. Narrative [facility] - 02/16/2024 12:33 PM CDT EXAMINATION: ??Images For Reference Purposes Only Francis Bhatti MD IMG XR PROCEDURES Final Res ult Performing Organization Address [facility] de Phone Number [facility] from Last 3 Months Insurance [facility] [employer] Care Teams Market Sales Manager Relationship Specialty Start Date End Date Julien Doan DO [address] [place] [address] PCP - General Internal Medicine 02/13/24
--- OUTSIDE RECORDS SUMMARY | 2024-05-06 08:57 | XMS_ITS | Encounter Summary ---
Author Organization [facility] Address [address] [place] [address] Phone Care Team Providers Care Television News Anchor Name Role Phone Julien Doan DO Primary Care Provider +1- [phone] Reason for Visit * Neurology (Routine) - Closed Specialty Diagnoses / Procedures Referred By Contac t Referred To Contact Diagnoses Spinal deformity Lumbar pain Procedures EMG/NCV - Francis Bhatti MD [address] [facility] [address] [place] [address] Phone: tel: fax: [facility] (All Locations) Referral ID Status Reason Start Date Expiration Date Visits Re quested Visits Authorized [id number] Closed 03/14/2024 04/13/2025 1 1 Encounter Details Date Type Department Care Team (Late st Contact Info) Description 03/21/2024 1:00 PM DIRECTOR OF PUPIL PERSONNEL PROGRAM Diagnostic [facility] [address] [facility] 6th [place] [address] [place] [address] Shabbir Coffey MD [address] [facility] [address] [place] [address] Paresthesia and pain of extremity (Primary Dx); Spinal deformity; Lumbar pain Social History Tobacco Use Types Packs/Day Years Used Date Smoking Tobacco: Never Assessed Comments Unknown Sex and Gender Information Value Date Recorded Sex Assigned at Not on file Legal Sex Female 11:00 AM CDT Gender Identity Not on file Sexual Orientation Not on file documented as of this encounter Progress Notes * Torrie Rowland MD - 03/21/2024 1:00 PM CST Images from the original note were not included. [facility] [address] [facility] [address] [address] Test Date: 03/21/2024 Patient: Mary Earl : 66 Physician: Shabbir Coffey Sex: Female Height: 5' 7 Ref Phys: Francis Bhatti MD ID#: [id number] Weight: 238 lbs. Graduate Teaching Assistant: Torrie Rowland MD Patient Complaints: Patient is a 54F with pmhx colon cancer s/p chemotherapy about 2-2.5 years ago presenting with bilateral lower limb paresthesias from the knee down starting around that time. Query peripheral neuropathy vs lumbar radiculopathy. NCS Findings: Evaluation of the left Peroneal (to the EDB) motor, the right Peroneal (to the EDB) motor, the leftTibial (to the AH) motor, the right Tibial (to the AH) motor, the left Sural (to the Inf Lat Mall) sensory, and the right Sural (to the Inf Lat Mall) sensory nerves were unremarkable. All left vs. right side differences were within normal limits. EMG Findings: Needle evaluation of the right anterior tibialis, the left vastus medialis, the left anterior tibialis, the left peroneus longus, the left medial gastrocnemius, the right extensor digitorum brevis, the left extensor digitorum brevis, and the left vastus lateralis muscles were unremarkable. Impression: Normal electrodiagnostic study of the bilateral lower limbs. There is no electrical evidence of a large fiber peripheral neuropathy in the bilateral lower limbs. Please note that this study does not rule out a small fiber peripheral neuropathy. There is no electrical evidence of a lumbar radiculopathy, tibial neuropathy, or fibular neuropathyin the bilateral lower limbs. The above procedure was performed by Dr. Rowland, fellow, under my direct supervision and guidance. Shabbir Coffey MD Nerve Conduction Studies Anti Sensory Summary Table Stim Site NR Peak (ms) Norm Peak (ms) P-T Amp (??V) Norm P-T Amp Site1 Site2 Delta-P (ms) Dist (cm)Edilberto (m/s) Norm Edilberto (m/s) Left Sural (to the Inf Lat Mall) Anti Sensory (Inf Lat Mall) Calf 3.6 <4.5 7.4 >4.0 Calf Inf Lat Mall 3.6 14.0 39 Right Sural (to the Inf Lat Mall) Anti Sensory (Inf Lat Mall) Calf 3.8 <4.5 7.0 >4.0 Calf Inf Lat Mall 3.8 14.0 37 Motor Summary Table Stim Site NR Onset (ms) Norm Onset (ms) O-P Amp (mV) Norm O-P Amp Site1 Site2 Delta-0 (ms) Dist (cm) Edilberto (m/s) Norm Edilberto (m/s) Left Peroneal (to the EDB) Motor (Ext Dig Brev) Ankle 4.8 <6.5 4.6 >1.3 Ankle Ext Dig Brev 4.8 8.0 17 B Fib 10.9 3.6 B Fib Ankle 6.1 31.0 51 >38 Poplt 12.5 3.9 Poplt B Fib 1.6 10.0 63 >40 Right Peroneal (to the EDB) Motor (Ext Dig Brev) Ankle 4.8 <6.5 6.1 >1.3 Ankle Ext Dig Brev 4.8 8.0 17 B Fib 10.8 5.2 B Fib Ankle 6.0 30.0 50 >38 Poplt 12.7 5.2 Poplt B Fib 1.9 10.0 53 >40 Left Tibial (to the AH) Motor (Abd Cantrell Brev) Ankle 4.2 <6.1 8.0 >4.4 Ankle Abd Cantrell Brev 4.2 8.0 19 Knee 12.0 6.6 Knee Ankle 7.8 34.0 44 >39 Right Tibial (to the AH) Motor (Abd Cantrell Brev) Ankle 3.9 <6.1 9.4 >4.4 Ankle Abd Cantrell Brev 3.9 8.0 21 Knee 12.3 6.3 Knee Ankle 8.4 38.0 45 >39 EMG Side Muscle Nerve Root Ins Act Fibs Psw Amp Dur Poly Recrt Int Pat Comment Right AntTibialis Dp Br Peron L4-5 Nml Nml Nml Nml Nml 0 Nml Nml Left VastusMed Femoral L2-4 Nml Nml Nml Nml Nml 0 Nml Nml Left AntTibialis Dp Br Peron L4-5 Nml Nml Nml Nml Nml 0 Nml Nml Left Peroneus Long Sup Br Peron L5-S1 Nml Nml Nml Nml Nml 0 Nml Nml Left MedGastroc Tibial S1-2 Nml Nml Nml Nml Nml 0 Nml Nml Right Ext Dig Brev Dp Br Peron L5, S1 Nml Nml Nml Nml Nml 0 Nml Nml Left Ext Dig Brev Dp Br Peron L5, S1 Nml Nml Nml Nml Nml 0 Nml Nml Left VastusLat Femoral L2-4 Nml Nml Nml Nml Nml 0 Nml Nml Nerve Conduction Studies Anti Sensory Left/Right Comparison Stim Site L Lat (ms) R Lat (ms) L-R Lat (ms) L Amp (??V) R Amp (??V) L-R Amp (%) Site1 Site2 L Edilberto (m/s) R Edilberto (m/s) L-R Edilberto (m/s) Sural (to the Inf Lat Mall) Anti Sensory (Inf Lat Mall) Calf 3.6 3.8 0.2 7.4 7.0 5.4 Calf Inf Lat Mall 39 37 2 Motor Left/Right Comparison Stim Site L Lat (ms) R Lat (ms) L-R Lat (ms) L Amp (mV) R Amp (mV) L-R Amp (%) Site1 Site2 L Edilberto (m/s) R Edilberto (m/s) L-R Edilberto (m/s) Peroneal (to the EDB) Motor (Ext Dig Brev) Ankle 4.8 4.8 0.0 4.6 6.1 24.6 Ankle Ext Dig Brev 17 17 0 B Fib 10.9 10.8 0.1 3.6 5.2 30.8 B Fib Ankle 51 50 1 Poplt 12.5 12.7 0.2 3.9 5.2 25.0 Poplt B Fib 63 53 10 Tibial (to the AH) Motor (Abd Cantrell Brev) Ankle 4.2 3.9 0.3 8.0 9.4 14.9 Ankle Abd Cantrell Brev 19 21 2 Knee 12.0 12.3 0.3 6.6 6.3 4.5 Knee Ankle 44 45 1 Waveforms: Cosigned by Shabbir Coffey MD at 03/25/2024 9:44 AM DIRECTOR OF PUPIL PERSONNEL PROGRAM CTOR OF PUPIL PERSONNEL PROGRAM documented in this encounter Plan of Treatment Not on file documented as of this encounter Visit Diagnoses Diagnosis Paresthesia and pain of extremity- Primary Spinal deformity Lumbar pain Lumbago documented in this encounter Orders Imaging Orders Without Results Count Last Order ed Date First Ordered Date EMG/NCV 1 03/21/2024 documented in this encounter Care Teams Television News Anchor Relationship Specialty Start Date End Date Julien Doan DO [facility] [address] [place] [id number] PCP - General Internal Medicine 02/13/24 documented as of this encounter
--- OUTSIDE RECORDS SUMMARY | 2024-05-06 08:57 | XMS_ITS | Encounter Summary ---
Author Organization [facility] Address [address] [place] [address] Phone Care Team Providers Care Print Developer Name Role Phone Julien Doan DO Primary Care Provider +1- [phone] Reason for Visit * Reason Onset Date Comments resident care associate appt w/ [facility] 02/15/2024 Encounter Details Date Type Department Care Team (Late st Contact Info) Description 02/15/2024 Telephone [facility] Orth[facility] 6th [place] [address] [place] [address] Mando Inman RMA resident care associate appt w/ MARÍA ELENA Social History Tobacco Use Types Packs/Day Years Used Date Smoking Tobacco: Never Assessed Comments Unknown Sex and Gender Information Value Date Recorded Sex Assigned at Not on file Legal Sex Female 11:00 AM CDT Gender Identity Not on file Sexual Orientation Not on file documented as of this encounter Miscellaneous Notes * Telephone Encounter - Mando Inman RMA - 02/15/2024 2:08 PM CDT Called pt today and LMOR asking her to call me back regarding an appt with MARÍA ELENA for her neck/arm pain and LBP. I stated she would need to have her records sent and to have her imaging pushed to us. Asked her to call me back to discuss. Yefri~ documented in this encounter Plan of Treatment Not on file documented as of this encounter Visit Diagnoses Not on filedocumented in this encounter Care Teams Print Developer Relationship Specialty Start Date End Date Julien Doan DO [address] [facility] [address] [place] [place] [address] PCP - General Internal Medicine 02/13/24 documented as of this encounter
--- OUTSIDE RECORDS SUMMARY | 2024-05-06 08:57 | XMS_ITS | Encounter Summary ---
Author Organization [facility] Address [address] [place] [address] Care Team Providers Care Cylinder Inspector Name Role Phone Julien Doan DO Primary Care Provider +1- [phone] Reason for Visit * MRI/CAT/PET Scan (Routine) - Closed Specialty Diagnoses / Procedures Referred By Sandy t Referred To Contact Procedures Neuro MR Outside Reference Francis Bhatti MD [address] [place] [address] [place] [address] Phone: tel: fax: Referral ID Status Reason Start Date Expiration Date Visits Re quested Visits Authorized [id number] Closed 02/16/2024 03/17/2025 1 1 Encounter Details Date Type Department Care Team (Latest Contact Info) Description 02/16/2024 3:13 PM CDT - 02/16/2024 11:59 PM CDT Hospital Encounter [facility] [address] [place] [address] Discharge Disposition: Discharge to home or self [...] Comments NEURO MR OUTSIDE REFERENCE Routine 02/16/2024 3:13 PM CDT documented in this encounter Results * Neuro MR Outside Reference (02/16/2024 3:13 PM CDT) Impressions [facility] - 02/16/2024 3:13 PM CDT These images are for Reference purposes only and have not been reviewed by [facility]. ??There will be no report generated by a [facility] Radiologist. Narrative [facility] - 02/16/2024 3:13 PM CDT EXAMINATION: ??Images For Reference Purposes Only us Francis Bhatti MD IMG MRI PROCEDURES Final Re sult [facility] documented in this encounter Visit Diagnoses Not on filedocumented in this encounter Care Teams Cylinder Inspector Relationship Specialty Start Date End Date Julien Doan DO [address] [facility] [address] [place] [id number] PCP - General Internal Medicine 02/13/24 documented as of this encounter
--- OUTSIDE RECORDS SUMMARY | 2024-05-06 08:57 | XMS_ITS | Encounter Summary ---
Author Organization [facility] Address [address] [place] [address] Care Team Providers Care Loftsman/Woman Name Role Phone Julien Doan DO Primary Care Provider [phone]- [phone] Encounter Details Date Type Department Care Team (Latest Contact Info) Description 02/16/2024 3:17 PM CDT - 02/16/2024 11:59 PM CDT Hospital Encounter [facility]) [address] [place] [address] Discharge Disposition: Discharge to home or self [...] OUTSIDE FILMS Routine 02/16/2024 3:17 PM CDT documented in this encounter Results * XR Outside Reference (02/16/2024 3:17 PM CDT) Impressions [facility] - 02/16/2024 3:17 PM CDT These images are for Reference purposes only and have not been reviewed by [facility]. ??There will be no report generated by a [facility] Radiologist. Narrative [facility] - 02/16/2024 3:17 PM CDT EXAMINATION: ??Images For Reference Purposes Only us Francis Bhatti MD IMG XR PROCEDURES Final Res ult [facility] documented in this encounter Visit Diagnoses Not on filedocumented in this encounter Care Teams Loftsman/Woman Relationship Specialty Start Date End Date Julien Doan DO [address] [facility] [address] [id number] PCP - General Internal Medicine 02/13/24 documented as of this encounter
--- OUTSIDE RECORDS SUMMARY | 2024-05-06 08:57 | XMS_ITS | Encounter Summary ---
Author Organization [facility] Address [address] [place] [address] Phone Care Team Providers Care Child Care Attendant Name Role Phone Julien Doan DO Primary Care Provider [phone]- [phone] Reason for Referral * Consultation (Routine) - Pending Review Specialty Diagnoses / Procedures Referred By Contac t Referred To Contact Weight Management Diagnoses Spinal deformity Francis Bhatti MD [address] [place] [address] Phone: tel: fax: Jostin Guerra MD [address] [place] [address] Phone: tel: fax: Referral ID Status Reason Start Date Expiration Date Visits Requested Visits Authorized [id number] Pending Review Specialty Services Required 03/14/2024 04/13/2025 1 1 Question Answer Please select the performing region: [facility] (All Locations) [167] To provider: JOSTIN GUERRA [[id number]] # of visits: 1 Comments Wt loss T STICKER * Consultation (Routine) - Pending Review Specialty Diagnoses / Procedures Referred By Contac t Referred To Contact Physical Therapy Diagnoses Spinal deformity Lumbar pain Francis Bhatti MD [address] [place] [address] Phone: tel: fax: [facility] (All Locations) Referral ID Status Reason Start Date Expiration Date Visits Requested Visits Authorized Pending Review Specialty Services Required 03/14/2024 04/13/2025 12 12 Question Answer PTRFR PT Evaluate and Treat Therapy options discussed with patient? Yes Location provided for therapy services is: Patient requested/Patient preferred Please select the performing region: [facility] (All Locations) [167] # of visits: 12 Comments Today's date: 03/14/24 Patient Name: Mary Earl Patient : 1970 Patient (home) Patient Insurance: [id number] Patient Diagnosis: Spinal deformity (primary encounter diagnosis) Physical Therapy Order: Bicycle-treadmill test with first available Ada, Vivian or Finesse Instructions on what is good and bad for lumbar spine in a back pain patient Instructions on how to stay erect, vertical, and lordotic and avoid flexing, bending over and being horizontal Aerobic, exercise, conditioning, fitness Strengthen spinal extensors Strenghen arms and legs Evaluate and Treatment T STICKER * Neurology (Routine) - Closed Specialty Diagnoses / Procedures Referred By [place] Referred To Contact Diagnoses Spinal deformity Lumbar pain Procedures EMG/NCV - Francis Bhatti MD [address] [facility] /[address] [place] [address] Phone: tel: fax: [facility] (All Locations) Referral ID Status Reason Start Date Expiration Date Visits Re quested Visits Authorized [id number] Closed 03/14/2024 04/13/2025 1 1 T STICKER * Diagnostic Imaging (Routine) - Closed Specialty Diagnoses / Procedures Referred By Sandy lake Referred To Contact Diagnoses Spinal deformity Procedures XR Scoliosis 6 or More Views Francis Bhatti MD [address] [facility] 6A[address]6B[address]12A [place] [address] Phone: tel: fax: [facility] Referral ID Status Reason Start Date Expiration Date Visits Re quested Visits Authorized [id number] Closed 03/12/2024 04/11/2025 1 1 T STICKER Reason for Visit * Reason Comments Scoliosis * Consultation (Routine) - Closed Specialty Diagnoses / Procedures Referred By Contac t Referred To Contact Orthopedic Surgery Diagnoses Cervical pain Lumbar pain Back pain with radiation [facility] Orthopaedic Surgery [facility] [place] [address] Phone: tel: fax: [facility] (All Locations) Referral ID Status Reason Start Date Expiration Date V isits Requested Visits Authorized [id number] Closed Specialty Services Required 02/13/2024 03/14/2025 1 1 Encounter Details Date Type Department Care Team (Late st Contact Info) Description 03/14/2024 9:30 AM RIVET STICKER Office Visit [facility] Orthopaedic Surgery [address] [place] [address] 6th [place] [address] Francis Bhatti MD [address] [facility] 6A/6B/[address] [address] Spinal deformity (Primary Dx); Cervical pain; Lumbar pain; Back pain with radiation; Degeneration of intervertebral disc of lumbar region, unspecified whether pain present; Degenerative disc disease, cervical; Malignant neoplasm of transverse colon (CMS/HCC) (HCC) Social History Tobacco Use Types Packs/Day Years Used Date Smoking Tobacco: Never Assessed Comments Unknown Sex and Gender Information Value Date Recorded Sex Assigned at Not on file Legal Sex Female 11:00 AM CDT Gender Identity Not on file Sexual Orientation Not on file documented as of this encounter Last Filed Vital Signs Vital Sign Reading Time Taken Comments Blood Pressure - - Pulse - - Temperature - - Respiratory Rate - - Oxygen Saturation - - Inhaled Oxygen Concentration - - Weight 108 kg (238 lb) 03/14/2024 9:13 AM RIVET STICKER Height 168.9 cm (5' 6.5 ) 03/14/2024 9:13 AM RIVET STICKER Body Mass Index 37.84 03/14/2024 9:13 AM RIVET STICKER documented in this encounter Patient Instructions * Patient Instructions* Elaine Franklin RN - 03/14/2024 9:30 AM RIVET STICKER Thank you for your visit today we are pleased to be here to assist with your spine needs. Sincerely, Dr. Francis Bhatti Please contact Yefri PADRON for if you have any questions. Mail disc to: Orthopedics Attn: Dr. Bhatti [address] [place], [place] [id number] T STICKER documented in this encounter Progress Notes * Francis Bhatti MD - 03/14/2024 9:30 AM CST Images from the original note were not included. Mary Terryell 1970 03/14/2024 Self Referral NEW PATIENT VISIT HISTORY OF PRESENT ILLNESS: This is a 54-year-old female who had a colon cancer a couple years ago and is had surgery and chemotherapy for it and has dysesthesias in her arms and legs now and she is trying to figure out if this is spinal stenosis or the chemotherapy. She is by herself today. Ingrid used to live around [facility] but she lives in [place] now. I talked to her on the phone for about half an hour a couple of days ago she has a past history of alcohol abuse low blood count arthritis: Surgery and chemotherapy couple years ago heart murmur neuropathy obesity osteoarthritis scoliosis diagnosed with scoliosis as a teenager but never braced bladder infections and sheis trying to lose weight. Two C-sections. A big bowel resection in . 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 This note is being transcribed by voice recognition so there are no doubt many typos. Past Medical History: Diagnosis Date Alcoholism (CMS/HCC) (HCC) Anemia Arthritis Cancer (CMS/HCC) (HCC) Heart murmur Hypertension Obesity Osteoarthritis Peripheral neuropathy Scoliosis Urinary tract infection Varicella Weight loss Past Surgical History: Procedure Laterality Date BOWEL RESECTION SECTION (Not in a hospital admission) Allergies Allergen Reactions Chlorhexidine Hives Nitrofurantoin Monohyd/M-Cryst Fever Body aches as well Sulfa (Sulfonamide Antibiotics) Swelling Unclassified Drug Nausea And Vomiting Pt reports does not tolerate anesthesia and pain medications well. Codeine Nausea And Vomiting Meperidine Nausea And Vomiting Social History Tobacco Use Smoking status: None Smokeless tobacco: None Substance and Sexual Activity Drug use: Not Currently Sexual activity: None Alcohol Use: Not on file Family History Problem Relation Age of Onset Scoliosis Father Hypertension Father Current Outpatient Medications: acetaminophen 500 mg capsule, Take by mouth, Disp: , Rfl: FA-vit Niiol-O-rxth-vitamin D3 0.8-2,000 mg-unit tablet, Take by mouth, Disp: , Rfl: ibuprofen (ADVIL,MOTRIN) 400 mg tablet, Take by mouth every 6 (six) hours as needed for pain, Disp:, Rfl: Lactobac 40-Bifido 3-S.thermop (Probiotic) 100 billion cell capsule, Take by mouth, Disp: , Rfl: magnesium oxide (MAG-OX) 400 mg (241.3 mg elemental magnesium) tablet, Take by mouth, Disp: , Rfl: omega-3 fatty acids 1,000 mg capsule, Take by mouth, Disp: , Rfl: omeprazole (PriLOSEC) 10 mg capsule, Take 2 capsules (20 mg total) by mouth daily, Disp: , Rfl: REVIEW OF SYSTEMS: Weight loss but she says she is trying to lose weight. Says no recurrence of hercolon cancer. Her Oswestry is pretty high a 60 her back pain is a 6 her left leg is a 2 her right leg is a 4 her neck pain is a 2 her left and right arm or 4 and for her pain diagram is both of her arms down to all of her fingers her right lateral pelvis her knees on both sides and her feet on bothsides. Most of her thighs are not shaded in most of her calves or not she aided in her spine is shaded in from T10 down to the sacrum. On the plain films and the MRIs of her cervical and lumbar spineI see no no evidence of any metastatic cancer. No no missing pedicles. That is soft tissue I see inher foramen at 2 3 on the left side not sure what that is but I doubt it represents any cancer. More likely it is all a partially resorbed disc herniation. Studies are all outside studies so there has been no assessment of the imaging studies by worse in University/horseshoe were worse you radiologist. Wear shoe not horse shoe. Benja will not recognize our University here. PHYSICAL EXAMINATION: General: 66-1/2 inches 238 lb. She does not look terribly overweight. She looks healthy. She is in no acute distress Musculoskeletal Spine: She does have around a 40 degree thoracic and lumbar curve. Coronal and sagittal balance is pretty good though and her walking is good. She is not myelopathic. HEENT: Little bit of arthritis in her neck but no major deformity. 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 operator all 5s negativeHoffman's in her lower extremities no long track signs quadriceps anterior tib gastrocsoleus toe extensors hip muscles all 5s Musculoskeletal, Non- Spine: Hips and knees seem okay Skin: Temperature turgor good Mental Health: Understanding good REVIEW OF X-RAY/STUDIES: I went over the films with the patient in very great detail the actual films not a report anyway shape or form but the actual films eos films show and cervical spine films show fair bit of disc degeneration at 1 level of her cervical spine I think it was see either for 5 or5 6 I forget now which 1 was worst segment and a little bit level below. But but 1 segment that hada lot more degeneration to it and then C4 on up was all fine. No major spinal stenosis anywhere andthen in her lumbar spine looks like a little bit of foraminal disc herniation at 2 3 on the left side. Maybe that explains a little bit of her left thigh pain. But it does not look like something that that we would want a hurry and do surgery on. Otherwise little bit of stenosis at 4 at 3 4. A little bit of stenosis at 3 4 but not horrible. And then otherwise on her long films she has got [id number] degree thoracic curve 40 degree lumbar curve little bit of degeneration here and there. A rotatory subluxation at 3 4 IMPRESSION/DIAGNOSES: She has got a little bit of degenerative arthritis in her cervical spine not terribly bad no major spinal stenosis. C5-C6 as the segment that was most degenerated. If she had a surgery for cervical spine it would be a 1 level ACDF but but I do not think that is appropriate. And then her lumbar spine this that there is this foraminal disc at 2 3 on the left side but I am not sure that is what is causing her symptoms in her legs. And she has a little bit of stenosis at 3 4 and if he were to do a surgery on her spine you might consider a T11 to the sacrum and pelvis with decompressions at 2 3 in 3 4 but I do not really think that is what she needs. TREATMENT PLAN: So we talked about working with physical therapist Erick and here see them3 times over 6 months and get them to facilitate the physical therapy that she is doing on the sidenow. And do a bicycle treadmill test as well. To try to figure out the symptoms in his in her legs and arms is that from spinal stenosis for our from the chemotherapy and do EMG nerve conductions as well and see if we can differentiate as this systemic neuropathy from chemotherapy or is it irritation of nerve nerve roots in her cervical and lumbar spine. Went over the patient with Elaine with 1 of the fellows. It was our impression that this is more side effect from her chemotherapy and not her spine but I am not absolutely positive. If she in we said we would see her back in 4-6 months if she starts complaining more specifically of left thigh pain I might think that extraforaminal disc at 2 3 on the left side is a player but right now I tend to think it is not. TIME SPENT: Spent 50-55 minutes with her today and then I talked to her on the phone a couple of days ago for 20 minutes as well so all-in-all over 70 minutes. ADDENDUM: I have thoroughly reviewed Epic and the current questionnaire on the patient. Over 50% ofthe time was my counseling of the patient and the person who was with the patient. Francis Bhatti MD T STICKER documented in this encounter Miscellaneous Notes * Addendum Note - Elaine Franklin RN - 03/14/2024 9:30 AM CSTAddended by: ELAINE FRANKLIN on: 03/14/2024 10:50 AM Modules accepted: Orders T STICKER documented in this encounter Plan of Treatment Scheduled Orders Name Type Priority Associated Diagnoses Orde r Schedule EMG/NCV - Neurology Routine Spinal deformity Lumbar pain 1 Occurrences starting 03/14/2024 until 03/14/2025 Scheduled Referrals Name Type Priority Associated Diagnoses Order Schedule Ambulatory referral order to Physical Therapy - Outpatient Referral Routine Spinal deformity Lumbar pain Expected: 03/28/2024 (Approximate), Expires: 03/14/2025 Ambulatory referral to Weight Management Outpatient Referral Routine Spinal deformity Expected: 03/28/2024 (Approximate), Expires: 03/14/2025 documented as of this encounter Results * XR Scoliosis 6 or More Views (03/14/2024 9:00 AM RIVET STICKER) Anatomical Region Laterality Modality Spine N/A Computed Radiogr aphy 03/14/2024 9:10 AM RIVET STICKER Impressions 03/14/2024 9:10 AM RIVET STICKER 1. ??Biconvex thoracolumbar scoliosis and decreased thoracic kyphosis with neutral truncal balance and mild right superior pelvic obliquity Electronically signed by: Ana Luisa Alves MD Narrative 03/14/2024 9:10 AM RIVET STICKER EXAMINATION: XR SCOLIOSIS ??6 OR MORE VIEWS [...] in this encounter Visit Diagnoses Diagnosis Spinal deformity- Primary Cervical pain Cervicalgia Lumbar pain Lumbago Back pain with radiation Unspecified backache Degeneration of intervertebral disc of lumbar region, unspecified whether pain present Degenerative disc disease, cervical Malignant neoplasm of transverse colon (CMS/HCC) (HCC) Malignant neoplasm of transverse colon Spinal deformity documented in this encounter Historical Medications * This list may reflect changes made after this encounter. omega-3 fatty acids 1,000 mg capsule Take by mouth ibuprofen (ADVIL,MOTRIN) 400 mg tablet Take by mouth every 6 (six) hours as needed for pain acetaminophen 500 mg capsule Take by mouth omeprazole (PriLOSEC) 10 mg capsule Take 2 capsules (20 mg total) by mouth daily Lactobac 40-Bifido 3-S.thermop (Probiotic) 100 billion cell capsule Take by mouth magnesium oxide (MAG-OX) 400 mg (241.3 mg elemental magnesium) tablet Take by mouth FA-vit Wqwhv-D-hfuy-tahmina min D3 0.8-2,000 mg-unit tablet Take by mouth added in this encounter Orders Outpatient Referral Count Last Ordered Date Fir st Ordered Date AMB REFERRAL TO ORTHOPEDIC SPINE 1 03/14/20 documented in this encounter Care Teams Child Care Attendant Relationship Specialty Start Date End Date Julien Doan DO [address] [facility] [address] [place] [address] [place] [id number] PCP - General Internal Medicine 02/13/24 documented as of this encounter
--- OUTSIDE RECORDS SUMMARY | 2024-05-06 08:57 | XMS_ITS | Referral Summary ---
Author Organization [facility] Address [address] [place] [address] Care Team Providers Care Ux Specialist Name Role Phone Julien Doan DO Primary Care Provider [phone] Encounters Date Type Department Care Team Description 03/21/2024 1:00 PM COLUMNIST Diagnostic [facility] Orthopaedic Surgery [address] [place] [address] [facility] 6th [place] [address] [place] [phone] Shabbir Coffey MD Paresthesia and pain of extremity (Primary Dx); Spinal deformity; Lumbar pain 03/14/2024 8:38 AM COLUMNIST - 03/14/2024 11:59 PM COLUMNIST Hospital Encounter [facility] ([facility]) [address] [place] [address] Spinal deformity Discharge Disposition: Discharge to home or self care 03/14/2024 9:30 AM COLUMNIST Office Visit [facility] Orthopaedic Surgery [address] [place] [address] 6th [place] [address] [place] [phone] Francis Bhatti MD Spinal deformity (Primary Dx); Cervical pain; Lumbar pain; Back pain with radiation; Degeneration of intervertebral disc of lumbar region, unspecified whether pain present; Degenerative disc disease, cervical; Malignant neoplasm of transverse colon (CMS/HCC) (HCC) 02/16/2024 3:17 PM CDT - 02/16/2024 11:59 PM CDT Hospital Encounter [facility] ([facility]) [address] [place] [address] Discharge Disposition: Discharge to home or self care 02/16/2024 3:15 PM CDT - 02/16/2024 11:59 PM CDT Hospital Encounter [facility] ([facility]) [address] [place] [address] Discharge Disposition: Discharge to home or self care 02/16/2024 3:13 PM CDT - 02/16/2024 11:59 PM CDT Hospital Encounter [facility] ([facility]) [address] [place] [address] Discharge Disposition: Discharge to home or self care 02/16/2024 12:33 PM CDT - 02/16/2024 11:59 PM CDT Hospital Encounter [facility] ([facility]) [address] [place] [address] Discharge Disposition: Discharge to home or self care 02/15/2024 Telephone [facility] Orthopaedic Surgery [address] [place] [address] for [facility] 6th [place] [address] [place] [address] Mando Inman RMA platform beater appt w/ MARÍA ELENA from Last 3 Months Allergies Active Allergy Reactions Criticality Noted Date Comments Chlorhexidine Hives High 03/26/2021 Codeine Nausea And Vomiting Low 03/22/2021 Meperidine Nausea And Vomiting Low 03/22/2021 Nitrofurantoin Monohyd/M-Cryst Fever Medium 12/04/2023 Body aches as well Sulfa (Sulfonamide Antibiotics) Swelling Medium 10/24/2011 Unclassified Drug Nausea And Vomiting 10/24/2011 Pt reports does not tolerate anesthesia and pain medications well. Medications FA-vit Ocbuj-J-uzdm-vi tamin D3 0.8-2,000 mg-unit tablet Take by [...] (CMS/HCC) 03/14/2024 Abdominal pain 03/08/2021 Hypokalemia 03/08/2021 Social History Tobacco Use Types Packs/Day Years Used Date Smoking Tobacco: Never Assessed Comments Unknown Sex and Gender Information Value Date Recorded Sex Assigned at Not on file Legal Sex Female 11:00 AM CDT Gender Identity Not on file Sexual Orientation Not on file Last Filed Vital Signs Vital Sign Reading Time Taken Comments Blood Pressure - - Pulse - - Temperature - - Respiratory Rate - - Oxygen Saturation - - Inhaled Oxygen Concentration - - Weight 108 kg (238 lb) 03/14/2024 9:13 AM COLUMNIST Height 168.9 cm (5' 6.5 ) 03/14/2024 9:13 AM COLUMNIST Body Mass Index 37.84 03/14/2024 9:13 AM COLUMNIST Plan of Treatment Not on file Procedures Procedure Name Priority Date/Time Associated Diagnosis Comments XR SCOLIOSIS 6 OR MORE VIEWS Schedule Routine, Read Routine (OP Routine) 03/14/2024 9:00 AM COLUMNIST Spinal deformity XR TRANSFER OF OUTSIDE FILMS Routine 02/16/2024 3:17 PM CDT NEURO MR OUTSIDE REFERENCE Routine 02/16/2024 3:15 PM CDT NEURO MR OUTSIDE REFERENCE Routine 02/16/2024 3:13 PM CDT XR TRANSFER OF OUTSIDE FILMS Routine 02/16/2024 12:33 PM CDT Diagnosis unknown from Last 3 Months Results * XR Scoliosis 6 or More Views (03/14/2024 9:00 AM COLUMNIST) Anatomical Region Laterality Modality Spine N/A Computed Radiogr aphy 03/14/2024 9:10 AM COLUMNIST Impressions 03/14/2024 9:10 AM COLUMNIST 1. ??Biconvex thoracolumbar scoliosis and decreased thoracic kyphosis with neutral truncal balance and mild right superior pelvic obliquity Electronically signed by: Ana Luisa Alves MD Narrative 03/14/2024 9:10 AM COLUMNIST EXAMINATION: XR SCOLIOSIS ??6 OR MORE VIEWS [...] Outside Reference (02/16/2024 3:17 PM CDT) Impressions [facility] - 02/16/2024 3:17 PM CDT These images are for Reference purposes only and have not been reviewed by [facility] Radiology. ??There will be no report generated by a [facility] Radiologist. Narrative [facility] - 02/16/2024 3:17 PM CDT EXAMINATION: ??Images For Reference Purposes Only Francis Bhatti MD IMG XR PROCEDURES Final Res ult Performing Organization Address [facility] Co de Phone Number [facility] * Neuro MR Outside Reference (02/16/2024 3:15 PM CDT) Impressions [facility] - 02/16/2024 3:15 PM CDT These images are for Reference purposes only and have not been reviewed by [facility]. ??There will be no report generated by a [facility] Radiologist. Narrative [facility] - 02/16/2024 3:15 PM CDT EXAMINATION: ??Images For Reference Purposes Only us Francis Bhatti MD IMG MRI PROCEDURES Final Re sult Performing Organization Address [facility] de Phone Number [email or web address] * Neuro MR Outside Reference (02/16/2024 3:13 PM CDT) Impressions [facility] - 02/16/2024 3:13 PM CDT These images are for Reference purposes only and have not been reviewed by [facility]. ??There will be no report generated by a [facility] Radiologist. Narrative [facility] - 02/16/2024 3:13 PM CDT EXAMINATION: ??Images For Reference Purposes Only us Francis Bhatti MD IMG MRI PROCEDURES Final Re sult Performing Organization Address [facility] Co de Phone Number [email or web address] * XR Outside Reference (02/16/2024 12:33 PM CDT) Impressions TEA - 02/16/2024 12:33 PM CDT These images are for Reference purposes only and have not been reviewed by [facility]. ??There will be no report generated by a [facility] Radiologist. Narrative [facility] - 02/16/2024 12:33 PM CDT EXAMINATION: ??Images For Reference Purposes Only us Francis Bhatti MD IMG XR PROCEDURES Final Res ult [facility] from Last 3 Months Insurance [employer] Care Teams Ux Specialist Relationship Specialty Start Date End Date Julien Doan DO [address] [facility] [address] [address] PCP - General Internal Medicine 02/13/24
--- OUTSIDE RECORDS SUMMARY | 2024-05-06 08:59 | XMS_ITS | Clinical Summary ---
Author Organization [facility] Address [address] [facility] Attn: Epic Prelude ADT OLLIE HERRMANN [address] Care Team Providers Care Family Practice Physician Assistant Name Role Phone Julien Doan DO Primary Care Provider Allergies Active Allergy Reactions Criticality Noted Date Comments Chlorhexidine Hives High 03/26/2021 Codeine Nausea and Vomiting Low 03/22/2021 Meperidine Nausea and Vomiting Low 03/22/2021 Nitrofurantoin Monohyd/M-Cryst Fever Low 12/04/2023 Body aches as well Sulfa (Sulfonamide Antibiotics) Swelling 10/24/2011 Unclassified Drug Nausea and Vomiting 10/24/2011 Pt reports does not tolerate anesthesia and pain medications well. Medications Medication Sig Dispensed Refills Start Date End Date Status omeprazole (PriLOSEC) 10 mg Capsule, Delayed Release(E.C.) Take 20 mg by mouth daily. Active DANDELION ROOT ORAL Take 1,300 mg by mouth daily. Active B complex w-C no.20/folic acid (B COMPLEX WITH C 20-FOLIC ACID ORAL) Take by mouth. Active Lactobac 40-Bifido 3-S.thermop (Probiotic) 100 billion cell Capsule Take by mouth. Active cholecalciferol, Vitamin D3, (VITAMIN D3) 25 mcg (1,000 unit) Capsule Take by mouth daily. Active MAGNESIUM OXIDE ORAL Take by mouth. Active Active Problems Problem Noted Date Diagnosed Date Abdominal pain 03/08/2021 Hypokalemia 03/08/2021 Acute colitis Colonic mass Liver lesion Malignant neoplasm of transverse colon Encounters Date Type Department Care Team Description 03/21/2024 Telephone [facility] Surgical Spec [place] [address] [facility] [address] [place] [address] Becky Mcknight RN physician referral 03/06/2024 External Device Data STL ABSTRACTION Provider, Abstract from Last 3 Months Family History Medical History Relation Name Comments Colon Cancer Neg Hx Relation Name Status Comments Father Alive Mother Sister Alive Social History Tobacco Use Types Packs/Day Years Used Date Smoking Tobacco: Former Cigarettes Q uit: 2000 Smokeless Tobacco: Never Tobacco Cessation:Counseling Given: Not Answered Alcohol Use Standard Drinks/Week Comments No 0 (1 standard drink = 0.6 oz pur e alcohol) Sex and Gender Information Value Date Recorded Sex Assigned at Not on file Gender Identity Not on file Sexual Orientation Not on file Job Start Date Occupation Industry Not on file Not on file Not on file Last Filed Vital Signs Vital Sign Reading Time Taken Comments Blood Pressure 145/100 12/04/2023 11:05 AM CDT Pulse 81 12/04/2023 11:01 AM CDT Temperature 36.5 ??C (97.7 ??F) 12/04/2023 11:01 AM C DT Respiratory Rate 18 12/04/2023 11:01 AM CDT Oxygen Saturation 98% 12/04/2023 11:01 AM CDT Inhaled Oxygen Concentration - - Weight 113.4 kg (250 lb) 12/04/2023 11:01 AM CDT Height 171.5 cm (5' 7.5 ) 12/16/2021 10:49 AM CD T Body Mass Index 38.58 12/16/2021 10:49 AM CDT Plan of Treatment Upcoming Encounters Date Type Department Care Team (Late st Contact Info) Description 06/13/2024 10:15 AM STAFF COUNSELOR Office Visit [facility] Oncology and Hematology - Neymar [address] [facility] [place] [address] Yosef Salmeron MD [address] [facility] [address] [place] [address] Health Maintenance Due Date Last Done Comments Pre-Diabetes and Diabetes Screening 1970 DTAP/TDAP/TD VACCINES (1 - Tdap) 02/16/1987 HEPATITIS B VACCINES (1 of 3 - 19+ 3-dose series) 02/16/1987 CERVICAL CANCER SCREENING 02/16/1998 BREAST CANCER SCREENING 2008 ZOSTER VACCINE (1 of 2) 02/16/2018 INFLUENZA VACCINE (#1) 2023 COLORECTAL SCREENING 12/16/2024 12/16/2021, 12/16/2021, 03/10/2021, Additional history exists PNEUMOCOCCAL VACCINE 0-64 YEARS Aged Out No longer eligible based on patient's age to complete this topic Medical Devices Implanted Type Area Shop Manager Device Identifier Shelf Expiration Date Model / Serial / Lot Clip Hemolok [id number] [id number] - Csc - [id number] Implanted:Qty : 1 on 03/26/2021 by Katelyn Jack MD at [facility] Clip N/A: Abdomen TELEFLEX- WECK CLOSURE SYS 08/03/2025 [id number] / / [id number] Port Powerport Clearvue 8fr Mri [id number] - [id number] Implanted:Qty : 1 on 04/15/2021 by Katelyn Jack MD at [facility] Port Right: Chest CR [employer]ARD[employer] [id number] 06/07/2022 [id number] / / [id number] Procedures Procedure Name Priority Date/Time Associated Diagnosis Comments COLONOSCOPY REPORT 12/16/2021 11 :29 AM CDT from Last 3 Months or Most Recently Relevant to Health Maintenance Results * COLONOSCOPY REPORT (12/16/2021 11:29 AM CDT) Narrative Procedure Note Vikas Fung MD - 12/16/2021 11:28 AM CDT [facility] Endoscopy Patient Name: Mary Earl Procedure Date: 12/16/2021 Date of : 1970 Age: 51 Attending MD: Vikas Fung MD Procedure: Colonoscopy Indications: High risk colon cancer surveillance: Personal history of colon cancer, Last colonoscopy: March 2021. Incomplete examination due to tumor. No family history. Providers: Vikas Fung MD Referring MD: Cornelio Rayo Requesting Provider: Yosef Salmeron Medicines: Monitored Anesthesia Care Procedure: Informed consent was obtained for the procedure, including moderate sedation after risks were discussed. Based on the pre-procedure assessment, including review of the patient's medical history, medications, allergies, and review of systems, the patient was deemed to be an appropriate candidate for sedation. A timeout was performed. Continuous ECG monitoring, pulse oximetry, blood pressure monitoring, and direct observation were performed. The Colonoscope was introduced through the anus and advanced to the terminal ileum. The quality of the bowel preparation was excellent. Estimated Blood Loss: Estimated blood loss: none. Findings: There was evidence of a prior functional end-to-end colo-colonic anastomosis in the distal transverse colon. This was patent and was characterized by healthy appearing mucosa. Diverticula were found in the left colon distal to the anastomosis. Most prominent in the sigmoid colon. External and internal hemorrhoids were found during retroflexion and during perianal exam. The hemorrhoids were mild. The terminal ileum appeared normal. Complications: No immediate complications. Impression: - Patent functional end-to-end colo-colonic anastomosis, characterized by healthy appearing mucosa. - Diverticulosis in the left colon. - External and internal hemorrhoids. - The examined portion of the ileum was normal. - No specimens collected. Recommendation: - Repeat colonoscopy in 3 years for surveillance. - See diverticulosis and hemorrhoid handouts. - Children and siblings should begin colon cancer screening with colonoscopy at age 40 and repeat every 5 years unless further individual or family findings suggest shorter intervals. Vikas Fung MD 12/16/2021 11:28:32 AM This report has been signed electronically. Number of Addenda: 0 Procedure Date: 12/16/2021 10:56:46 AM [id number] [id number] Vikas Fung MD GI PROCEDURE ORDERAB LES from Last 3 Months or Most Recently Relevant to Health Maintenance Advance Directives For more information, please contact: [phone] * Full Code (Latest Code Status on File) Date Activated Date Inactivated Comments 12/16/2021 10:52 AM 12/16/2021 2:16 PM * Full Code Date Activated Date Inactivated Comments 04/15/2021 7:00 AM 04/15/2021 4:40 PM * Full Code Date Activated Date Inactivated Comments 03/26/2021 9:10 PM 03/28/2021 7:44 PM * Full Code Date Activated Date Inactivated Comments 03/26/2021 10:26 AM 03/26/2021 9:09 PM * Full Code Date Activated Date Inactivated Comments 03/08/2021 7:10 PM 03/12/2021 12:49 AM Care Teams Family Practice Physician Assistant Relationship Specialty Start Date End Date Julien Doan DO [address] [address] PCP - General Internal Medicine 09/12/22
--- OUTSIDE RECORDS SUMMARY | 2024-05-06 08:59 | XMS_ITS | Encounter Summary ---
Author Organization [facility] Address [address] [place] [address] Care Team Providers Care Flight Test Mechanic Name Role Phone Julien Doan DO Primary Care Provider Encounter Details Date Type Department Care Team (Late st Contact Info) Description 08/22/2023 External Device Data STL ABSTRACTION Provider, Abstract NO ADDRESS ON FILE Social History Tobacco Use Types Packs/Day Years Used Date Smoking Tobacco: Former Cigarettes Q uit: 2000 Smokeless Tobacco: Never Alcohol Use Standard Drinks/Week Comments No 0 (1 standard drink = 0.6 oz pur e alcohol) Sex and Gender Information Value Date Recorded Sex Assigned at Not on file Gender Identity Not on file Sexual Orientation Not on file Job Start Date Occupation Industry Not on file Not on file Not on file documented as of this encounter Plan of Treatment Upcoming Encounters Date Type Department Care Team (Late st Contact Info) Description 06/13/2024 10:15 AM CONVEYOR LINE BAKERY WORKER Office Visit [facility] Oncology and Hematology - Neymar [address] [facility] [address] [place] [address] Yosef Salmeron MD [address] [facility] [address] [place] [address] documented as of this encounter Visit Diagnoses Not on filedocumented in this encounter Care Teams Flight Test Mechanic Relationship Specialty Start Date End Date Julien Doan DO [address] [facility] [address] [place] [id number] PCP - General Internal Medicine 09/12/22 documented as of this encounter
--- OUTSIDE RECORDS SUMMARY | 2024-05-06 08:59 | XMS_ITS | Encounter Summary ---
Author Organization [facility] Address [address] [place] [address] Care Team Providers Care Extrusion Machine Operator Name Role Phone Julien Doan DO Primary Care Provider Encounter Details Date Type Department Care Team (Late st Contact Info) Description 12/27/2023 External Device Data STL ABSTRACTION Provider, Abstract [...] st Contact Info) Description 06/13/2024 10:15 AM DRY CLEANING MACHINE OPERATOR HELPER Office Visit [facility] Oncology and Hematology - Neymar [address] [facility] [address] [place] [address] Yosef Salmeron MD [address] [facility] [address] [place] [address] documented as of this encounter Visit Diagnoses Not on filedocumented in this encounter Care Teams Extrusion Machine Operator Relationship Specialty Start Date End Date Julien Doan DO [address] [facility] [address] [place] [phone] PCP - General Internal Medicine 09/12/22 documented as of this encounter
--- OUTSIDE RECORDS SUMMARY | 2024-05-06 08:59 | XMS_ITS | Encounter Summary ---
Author Organization [facility] Address [address] [place] [address] Care Team Providers Care Correction Officer Head Name Role Phone Julien Doan DO Primary Care Provider Encounter Details Date Type Department Care Team (Late st Contact Info) Description 08/09/2023 Chart Note [facility] Bariatrics and General Surgery at the [facility] [address] [place] [address] Martha Hector MD [address] [place] [address] Social History Tobacco Use Types Packs/Day Years [...] as of this encounter Progress Notes * Bianca Saravia RN - 08/09/2023 9:13 AM CDT [facility] BARIATRIC INTAKE FORM Appt. Date: ___08/17/2023_ Previous Bariatric Surgery? Yes / No _No__ Band ___ Sleeve ___ Bypass ___ Other (___) Insurance (Primary) BCBS On file with [facility]? Yes / No Yes [phone] ID # [id number] Group # [id number] Date Called: Spoke with: Tatyana Ref #__ [id number] Effective Date:_05/08/2023____ In-Network? Yes / No Yes In-Network Deductible: $____0__ Met: $____ Covered at ____100_% up to $ Jgb-ov-ahbxxt: $ 0 MET $ Inpatient co-pay: $ 0 Lifetime max: $ _X__ COVERED BENEFIT ___ EXCLUSION _X__ Sleeve (CPT 12373) __X_ Corey-en-Y Bypass (90526) ___ Lap band removal (26078) ___ Lap AUDREY/Switch (76312); open (48999) ___ Revisional (36201) ___ Overstitch [Bypass/EGD] (61084) Facility Requirement? Yes / No X __ MBSAQIP __ Blue Distinction __ Aetna Quality __ UHC Optum __ CIGNA Quality __ Other Bariatric Guidelines: __ BRS (UHC) required? Yes / No Ph. # Prior Auth required? Yes / No Y Ph. # Fax # [phone] Medically Supervised Diet required? Yes / No NO __ 3 mos. __ 6 mos. __ 12 mos. __ Monthly visits ^Documented exercise required? Yes / No No _X__ BMI >40 or 35 w/ comorbidity ___X Psych Eval ___ Follow Medicare/Medicaid Guidelines ___ Chest X-ray ___ EKG/Cardiac Clearance ___ Labs (all required) ___ Sleep study/STOP-BANG ___ EGD w/ H. pylori ___ Non-smoker ___12 Notes (Aetna) Nutritional Counseling: __X_ Covered Benefit ___ Exclusion ___97802 Initial ___97[address] [place] [address] Group meeting Notes: Medical Policy: documented in this encounter Plan of Treatment Upcoming Encounters Date Type Department Care Team (Late st Contact Info) Description 06/13/2024 10:15 AM CARPET INSPECTOR FINISHED Office Visit [facility] Oncology and Hematology - Neymar [address] [facility] [address] [place] [address] Yosef Salmeron MD [address] [facility] [address] [place] [address] documented as of this encounter Visit Diagnoses Not on filedocumented in this encounter Care Teams Correction Officer Head Relationship Specialty Start Date End Date Julien Doan DO [address] [facility] [address] [place] [address] PCP - General Internal Medicine 09/12/22 documented as of this encounter
--- OUTSIDE RECORDS SUMMARY | 2024-05-06 08:59 | XMS_ITS | Encounter Summary ---
Author Organization [facility] Address [address] [place] [address] Care Team Providers Care Sterile Supply Technician Name Role Phone Julien Doan DO Primary Care Provider Encounter Details Date Type Department Care Team (Late st Contact Info) Description 12/26/2023 External Device Data STL ABSTRACTION Provider, Abstract [...] st Contact Info) Description 06/13/2024 10:15 AM SUPERVISOR FABRICATION AND ASSEMBLY Office Visit [facility] Oncology and Hematology - Neymar [address] [facility] [address] [place] [address] Yosef Salmeron MD [address] [facility] [address] [place] [address] documented as of this encounter Visit Diagnoses Not on filedocumented in this encounter Care Teams Sterile Supply Technician Relationship Specialty Start Date End Date Julien Doan DO [address] [facility] [address] [place] [phone] PCP - General Internal Medicine 09/12/22 documented as of this encounter
--- OUTSIDE RECORDS SUMMARY | 2024-05-06 08:59 | XMS_ITS | Encounter Summary ---
Author Organization [facility] Address [address] [place] [address] Care Team Providers Care Guest Associate Name Role Phone Julien Doan DO Primary [...] st Contact Info) Description 06/13/2024 10:15 AM SPECIAL EFFECTS DESIGNER Office Visit [facility] Oncology and Hematology - Neymar [address] [facility] [address] [place] [address] Yosef Salmeron MD [address] [facility] [address] [place] [address] documented as of this encounter Visit Diagnoses Not on filedocumented in this encounter Care Teams Guest Associate Relationship Specialty Start Date End Date Julien Doan DO [address] [facility] [address] [place] [phone] PCP - General Internal Medicine 09/12/22 documented as of this encounter
--- OUTSIDE RECORDS SUMMARY | 2024-05-06 08:59 | XMS_ITS | Encounter Summary ---
Author Organization [facility] Address [address] [place] [address] Care Team Providers Care Hyperion Essbase Developer Name Role Phone Julien Doan DO [...] st Contact Info) Description 06/13/2024 10:15 AM MEDICAL CODING MANAGER Office Visit [facility] Oncology and Hematology - Neymar [address] [facility] [address] [place] [address] Yosef Salmeron MD [address] [facility] [address] [place] [address] documented as of this encounter Visit Diagnoses Not on filedocumented in this encounter Care Teams Hyperion Essbase Developer Relationship Specialty Start Date End Date Julien Doan DO [address] [facility] [address] [place] [address] PCP - General Internal Medicine 09/12/22 documented as of this encounter
--- OUTSIDE RECORDS SUMMARY | 2024-05-06 08:59 | XMS_ITS | Encounter Summary ---
Author Organization [facility] Address [address] [place] [address] Care Team Providers Care Cost Controller Name Role Phone PatrickJulien guerra Primary Care Provider Encounter Details Date Type Department Care Team (Late Contact Info) Description 11/29/[address] [facility] Oncology [facility] Hematology [facility] [address] [place] [address] Yosef Salmeron MD [facility] [address] [place] [address] Social History Tobacco Use Types Packs/Day Years Used Date Smoking Tobacco: Former Cigarettes Q uit: 2001 Smokeless Tobacco: Never Alcohol Use Standard Drinks/Week [...] st Contact Info) Description 06/13/2024 10:15 AM GRAPHITE DISK ASSEMBLER Office Visit [facility] Oncology and Hematology [facility] [address] [place] [address] Yosef Salmeron MD [address] [place] [address] documented as of this encounter Procedures Procedure Name Priority Date/Time Associated Diagnosis Comments COMPREHENSIVE METABOLIC PANEL Routine 11/29/2023 4:08 PM CDT documented in this encounter Results * COMPREHENSIVE METABOLIC PANEL (11/29/2023 4:08 PM CDT) Blood Yosef Salmeron MD CHEMISTRY ORDERABLES documented in this encounter Visit Diagnoses Not on filedocumented in this encounter Care Teams Cost Controller Relationship Specialty Start Date End Date Julien Doan DO [address] [address] PCP - General Internal Medicine 09/12/22 documented as of this encounter
--- OUTSIDE RECORDS SUMMARY | 2024-05-06 08:59 | XMS_ITS | Encounter Summary ---
Author Organization [facility] Address [address] [place] [address] Care Team Providers Care Sebd Teacher Name Role Phone Julien Doan DO Primary Care Provider Encounter Details Date Type Department Care Team (Late st Contact Info) Description 03/06/2024 External Device Data STL ABSTRACTION Provider, [...] st Contact Info) Description 06/13/2024 10:15 AM DISPLAY MANAGER Office Visit [facility] Oncology and Hematology - Neymar [address] [facility] [address] [place] [address] Yosef Salmeron MD [address] [facility] [address] [place] [address] documented as of this encounter Visit Diagnoses Not on filedocumented in this encounter Care Teams Sebd Teacher Relationship Specialty Start Date End Date Julien Doan DO [address] [facility] [address] [place] [phone] PCP - General Internal Medicine 09/12/22 documented as of this encounter
--- OUTSIDE RECORDS SUMMARY | 2024-05-06 08:59 | XMS_ITS ---
Author Organization [facility] Address [address] [place]: [facility] Prelude ADT OLLIE HERRMANN [address] Care Team Providers Care Claim Trainee Name Role Phone Julien Doan DO Primary Care Provider Active Problems Problem Noted Date Diagnosed Date Abdominal pain 03/08/2021 Hypokalemia 03/08/2021 Acute colitis Colonic mass Liver lesion Malignant neoplasm of transverse colon Current Oncology Plans No current plan information found. Past Plans No past plan information found. Radiation Treatments * No radiation treatments are documented for this patient in [facility]. Treatments may have been administered in another system. Lifetime Dose Tracking * Chemical Lifetime Dose Automatic Entry Manual Entr y Effective Dose 78.5 mSv 78.5 mSv 0 mSv Total DLP 5,434 DLP 5,434 DLP 0 DLP CTDIvol Max 57.5 mGy 57.5 mGy 0 mGy CTDIvol Min 49.8 mGy 49.8 mGy 0 mGy
--- OUTSIDE RECORDS SUMMARY | 2024-05-06 08:59 | XMS_ITS | Encounter Summary ---
Author Organization [facility] Address [address] [place] [address] Care Team Providers Care Information Specialist Name Role Phone PatrickJulien guerra Joseph Primary Care Provider Reason for Visit * Reason Onset Date Comments physician referral 03/21/2024 Encounter Details Date Type Department Care Team (Late Contact Info) Description 03/21/2024 Telephone [facility] Surgical Spec [place] [address] [place] [address] Becky Mcknight, RN physician referral Social History Tobacco Use Types Packs/Day Years [...] encounter Miscellaneous Notes * Telephone Encounter - Becky Mcknight RN - 03/21/2024 3:45 PM CST Patient called for oncologist referral. I contacted patient with Dr Enrique Roberts information. SHER HAND documented in this encounter Plan of Treatment Upcoming Encounters Date Type Department Care Team (Late st Contact Info) Description 06/13/2024 10:15 AM FINISHER HAND Office Visit [facility] Oncology and Hematology - Neymar [address] [place] [address] Yosef Salmeron MD [address] [facility] [address] [place] [address] documented as of this encounter Visit Diagnoses Not on filedocumented in this encounter Care Teams Information Specialist Relationship Specialty Start Date End Date Julien Doan DO [address] [facility] [address] [place] [address] PCP - General Internal Medicine 09/12/22 documented as of this encounter
--- OUTSIDE RECORDS SUMMARY | 2024-05-06 08:59 | XMS_ITS | Encounter Summary ---
Author Organization [facility] Address [address] [place] [address] Care Team Providers Care Delivery Associate Name Role Phone Julien Doan DO Primary Care Provider Encounter Details Date Type Department Care Team (Late st Contact Info) Description 01/03/2024 External Device Data STL ABSTRACTION Provider, Abstract [...] st Contact Info) Description 06/13/2024 10:15 AM RESEARCH CLERK Office Visit [facility] Oncology and Hematology - Neymar [address] [facility] [address] [place] [address] Yosef Salmeron MD [address] [facility] [address] [place] [address] documented as of this encounter Visit Diagnoses Not on filedocumented in this encounter Care Teams Delivery Associate Relationship Specialty Start Date End Date Julien Doan DO [address] [facility] [address] [place] [address] PCP - General Internal Medicine 09/12/22 documented as of this encounter
--- OUTSIDE RECORDS SUMMARY | 2024-05-06 08:59 | XMS_ITS | Encounter Summary ---
Author Organization [facility] EDUARDOPenemarie K Murphy [facility] Address [address] [place] [address] Care Team Providers Care Printing Specialist Name Role Phone Julien Doan DO Primary Care Provider Reason for Referral * CT Scan (Routine) - Closed Specialty Diagnoses / Procedures Referred By Sandy t Referred To Contact Diagnoses Malignant neoplasm of transverse colon Procedures CT ABDOMEN PELVIS W CONTRAST Yosef Salmeron MD [address] [place] [address] [place] [address] Referral ID Status Reason Start Date Expiration Date V isits Requested Visits Authorized [id number] Closed STL CTS 12/04/2023 01/03/2025 1 1 Reason for Visit * Reason Comments Follow Up Cancer Encounter Details Date Type Department Care Team (Late st Contact Info) Description 12/04/2023 11:00 AM CDT Office Visit [facility] Oncology and Hematology [address] [facility] [address] [place] [address] Yosef Salmeron MD [address] [place] [address] Malignant neoplasm of transverse colon (Primary Dx) Social History Tobacco Use Types Packs/Day Years [...] (250 lb) 12/04/2023 11:01 AM CDT Height - - Body Mass Index 38.58 12/16/2021 10:49 AM CDT documented in this encounter Progress Notes * Yosef Salmeron MD - 12/04/2023 12:14 PM CDT HEMATOLOGY / ONCOLOGY PROGRESS NOTE Patient Identification: Name: Mary Earl Age: 53 y.o. Sex: female : 1970 DIAGNOSIS T3 N1a M0 stage IIIB adenocarcinoma moderately differentiated invading the pericolonic soft tissue with lymphovascular invasion and perineural invasion. Metastatic carcinoma in 1 out of 33 lymph node. Margins free of tumor. Status post large bowel, splenic flexure resection done on March 26, 2021. CURRENT TREATMENT Surveillance TREATMENT HISTORY Adjuvant chemotherapy with FOLFOX started 04/26/2021. Completed cycle 04/18 of chemotherapy on 2021. SUBJECTIVE Patient came to the office for follow-up visit. She has gained 3 pound weight. Denies any melena hematochezia. No diarrhea and constipation. Denies any abdominal pain. No other new complaints. Review of system Constitutional: denies fevers, sweats, 3 pound weight gain without much tiredness and fatigue HEENT: denies sinus congestion, hearing or vision problems Respiratory: denies cough, dyspnea, wheeze Cardiovascular: denies chest pain, exertional chest pressure/discomfort, nausea, syncope, shortnessof breath GI: denies dsyphagia, reflux symptoms, vomiting, melena, denies any constipation : denies dysuria, frequency, incontinence, urgency Integumentary system: no lymphadenopathy, sweats, flushing Musculoskeletal: denies: myalgia, arthralgia Neurological: denies blurry or disturbed vision, stable neuropathy skin: No lumps, bumps or rashes. 12 point review of system was reviewed objective: Vital signs in last 24 hours: As per nursing note Exam: General appearance: alert, cooperative, no distress, appears stated age Head: normocephalic, without obvious abnormality, atraumatic Eyes: conjunctivae/corneas clear, EOM's intact Ears: normal external ear canals AU Nose: Nares normal. Septum midline. Mucosa normal. No drainage or sinus tenderness Throat: Lips, mucosa, and tongue normal. Teeth and gums normal Neck: supple, symmetrical, trachea midline. Lungs: clear to auscultation bilaterally Heart: regular rate and rhythm, S1, S2 normal, no murmur, click, rub or gallop Abdomen: soft, non-tender. Bowel sounds normal. No masses, No organomegaly Extremities: extremities normal, atraumatic, no cyanosis or edema Skin: Skin color, texture, turgor normal. No rashes or lesions Lymph nodes: No lymphadenopathy Neuro: No obvious focal deficit Exam as above PATH LABS Labs from 05/12/2021 showed WBC 2.8 hemoglobin 10.7 platelet 275,000 ANC 800 creatinine 1.0 Labs from June 01 showed WBC 3.7 hemoglobin 10.7 platelet 152,000 creatinine 0.7 Labs from June 22 showed WBC 3.9 hemoglobin 11.4 platelet 208,000 creatinine 0.7 Labs from July 09 showed WBC 3.4 hemoglobin 11.1 platelet 126,000 creatinine 0.9 Labs from July 20 showed WBC 2.9 hemoglobin 11.7 platelet 121,000 creatinine 0.8 Labs from August 17 showed WBC 2.6 hemoglobin 11.5 platelet 95,000 ANC 1000 creatinine 0.7 Labs from August 31 showed WBC 3.2 hemoglobin 11.8 platelet 103,000 creatinine 0.8 Labs from September 14 showed WBC 2.8 hemoglobin 11.4 platelet 95,000 ANC 1100 creatinine 0.8 Labs from October 05 showed WBC 3.6 hemoglobin 11.7 platelet 157,000 Labs from October 19 showed WBC 3.2 hemoglobin 11.5 platelet 114,000 creatinine 0.8 Labs from December 09 showed creatinine 0.7 total bilirubin 0.5 AST 41 ALT 41 WBC 4.8 hemoglobin 12.2 platelet 192,000 CEA 1.9 Labs from March 14 showed hemoglobin 13.2 creatinine 0.8 Labs from June 08 showed WBC 5.8 hemoglobin 12 platelet 182,000 CEA 2.0 Labs from September 06 showed creatinine 0.7 CEA 2.1 AST 27 ALT 31 CBC normal. Labs from January 24 showed CEA 2.0 creatinine 0.6 total bilirubin 0.7 WBC 6.7 hemoglobin 12.6 platelet 220,000 Labs from May 22 showed creatinine 0.7 CEA 1.8 hemoglobin 12.9 Labs from November 28 showed creatinine 0.7 CEA 2.7 AST 35 ALT 43 hemoglobin 13.2 Assessment: Plan: Patient Active Problem List Diagnosis Date Noted Malignant neoplasm of transverse colon Colonic mass Liver lesion Acute colitis Abdominal pain 03/08/2021 Hypokalemia 03/08/2021 T3 N1a M0 stage IIIB adenocarcinoma moderately differentiated invading the pericolonic soft tissue with lymphovascular invasion and perineural invasion. Metastatic carcinoma in 1 out of 33 lymph node. Margins free of tumor. Status post large bowel, splenic flexure resection done on March 26, 2021. Patient is started adjuvant chemotherapy with FOLFOX in 04/26/2021. Completed cycle 04/18 of chemotherapy on October 11, 2021. Colonoscopy done on December 16, 2021 showed no evidence of relapse of disease. There is no evidence of relapse of disease on my examination. Labs including tumor markers stable. I have recommended regular exercise and weight loss. I will see her back in [address] abdomen and pelvis. Anemia. Resolved. Chemotherapy-induced neuropathy. Stable. Elevated liver enzymes. Stable. I recommended regular exercise and weight loss. TOBACCO COUNSELING She is not a tobacco/nicotine user. 12/04/2023 Ysoef Salmeron MD documented in this encounter Plan of Treatment Upcoming Encounters Date Type Department Care Team (Late st Contact Info) Description 06/13/2024 10:15 AM METALLURGICAL LABORATORY ASSISTANT Office Visit [facility] Oncology and Hematology [facility] [address] [place] [address] Yosef Salmeron MD [address] [facility] [address] [place] [address] Scheduled Orders Name Type Priority Associated Diagnoses Orde r Schedule CBC WITH DIFFERENTIAL Lab Stat Malignant neoplasm of transverse colon Expected: 06/05/2024, Expires: 12/03/2024 CEA Lab Routine Malignant neoplasm of transverse colon Expected: 06/05/2024, Expires: 12/03/2024 COMPREHENSIVE METABOLIC PANEL Lab Stat Malignant neoplasm of transverse colon Expected: 06/05/2024, Expires: 12/03/2024 CT ABDOMEN PELVIS W CONTRAST Imaging Routine Malignant neoplasm of transverse colon Expected: 06/05/2024, Expires: 12/03/2024 documented as of this encounter Visit Diagnoses Diagnosis Malignant neoplasm of transverse colon- Primary documented in this encounter Care Teams Printing Specialist Relationship Specialty Start Date End Date Julien Doan DO [address] [address] PCP - General Internal Medicine 09/12/22 documented as of this encounter
--- OUTSIDE RECORDS SUMMARY | 2024-05-06 08:59 | XMS_ITS | Encounter Summary ---
Author Organization [facility] Address [address] [place] [address] Care Team Providers Care Expansion Envelope Maker Hand Name Role Phone Julien Doan DO Primary Care Provider Encounter Details Date Type Department Care Team (Late st Contact Info) Description 09/26/2023 External Device Data STL ABSTRACTION Provider, Abstract [...] st Contact Info) Description 06/13/2024 10:15 AM GENERAL ADJUSTER Office Visit [facility] Oncology and Hematology - Neymar [address] [facility] [address] [place] [address] Yosef Salmeron MD [address] [facility] [address] [place] [address] documented as of this encounter Visit Diagnoses Not on filedocumented in this encounter Care Teams Expansion Envelope Maker Hand Relationship Specialty Start Date End Date Julien Doan DO [address] [facility] [address] [place] [phone] PCP - General Internal Medicine 09/12/22 documented as of this encounter
--- OUTSIDE RECORDS SUMMARY | 2024-05-06 09:00 | XMS_ITS | Encounter Summary ---
Author Organization [facility] Address [address] [place] [address] Care Team Providers Care Shipboard Intelligence Analyst Name Role Phone Julien Doan DO Primary Care Provider Encounter Details Date Type Department Care Team (Late st Contact Info) Description 07/13/2023 External Device Data STL ABSTRACTION Provider, Abstract [...] st Contact Info) Description 06/13/2024 10:15 AM SCALE AGENT Office Visit [facility] Oncology and Hematology - [place]ymar [address] [facility] [address] [place] [address] Yosef Salmeron MD [address] [facility] [address] [place] [address] documented as of this encounter Visit Diagnoses Not on filedocumented in this encounter Care Teams Shipboard Intelligence Analyst Relationship Specialty Start Date End Date Julien Doan DO [address] [facility] [address] [place] [phone] PCP - General Internal Medicine 09/12/22 documented as of this encounter
--- OUTSIDE RECORDS SUMMARY | 2024-05-06 09:00 | XMS_ITS | Encounter Summary ---
Author Organization [facility] Address [address] [place] [address] Care Team Providers Care Certified Family Mediator Name Role Phone Julien Doan DO Primary Care Provider Encounter Details Date Type Department Care Team (Late st Contact Info) Description 04/21/2023 External Device Data STL ABSTRACTION Provider, Abstract [...] st Contact Info) Description 06/13/2024 10:15 AM CARPENTER ROUGH [facility] Visit [facility] Oncology and Hematology - Neymar [address] [facility] [address] [place] [address] Yosef Salmeron MD [address] [facility] [address] [place] [address] documented as of this encounter Visit Diagnoses Not on filedocumented in this encounter Care Teams Certified Family Mediator Relationship Specialty Start Date End Date Julien Doan DO [address] [facility] [address] [place] [phone] PCP - General Internal Medicine 09/12/22 documented as of this encounter
--- OUTSIDE RECORDS SUMMARY | 2024-05-06 09:00 | XMS_ITS | Encounter Summary ---
Author Organization [facility] Address [address] [place] [address] Care Team Providers Care Squeezer Operator Name Role Phone Julien Doan DO Primary Care Provider Encounter Details Date Type Department Care Team (Late st Contact Info) Description 05/09/2023 External Device Data STL ABSTRACTION Provider, Abstract [...] st Contact Info) Description 06/13/2024 10:15 AM CUSTODIAN MANAGER Office Visit [facility] Oncology and Hematology - Neymar [address] [facility] [address] [place] [address] Yosef Salmeron MD [address] [facility] [address] [place] [address] documented as of this encounter Visit Diagnoses Not on filedocumented in this encounter Care Teams Squeezer Operator Relationship Specialty Start Date End Date Julien Doan DO 118[address] [facility] [address] [place] [phone] PCP - General Internal Medicine 09/12/22 documented as of this encounter
--- OUTSIDE RECORDS SUMMARY | 2024-05-06 09:00 | XMS_ITS | Encounter Summary ---
Author Organization [facility] Address [address] [place] [address] Care Team Providers Care Food Bagging Machine Operator Name Role Phone Julien Doan DO Primary Care Provider Encounter Details Date Type Department Care Team (Late Contact Info) Description 08/09/2023 Chart Note [facility] Bariatrics and General Surgery at the [facility] [address] [facility] [address] [place] [phone] Bianca Saravia, RN Social History Tobacco Use Types Packs/Day Years [...] Encounters Date Type Department Care Team (Late Contact Info) Description 06/13/2024 10:15 AM POULTRY HUSBANDRY WORKER Office Visit [facility] Oncology and Hematology - [place]ym[place] [address] [facility] [address] [place] [address] Yosef Salmeron MD [address] [facility] [address] [place] [address] documented as of this encounter Visit Diagnoses Not on filedocumented in this encounter Care Teams Food Bagging Machine Operator Relationship Specialty Start Date End Date Julien Doan DO [address] [facility] [address] [place] [address] PCP - General Internal Medicine 09/12/22 documented as of this encounter
--- OUTSIDE RECORDS SUMMARY | 2024-05-06 09:00 | XMS_ITS | Encounter Summary ---
Author Organization [facility] Address [address] [place] [address] Care Team Providers Care Scientific Informatics Analyst Name Role Phone Julien Doan DO Primary Care Provider Encounter Details Date Type Department Care Team (Late st Contact Info) Description 06/09/2023 External Device Data STL ABSTRACTION Provider, Abstract [...] st Contact Info) Description 06/13/2024 10:15 AM HEAD OF OPERATION AND LOGISTICS Office Visit [facility] Oncology and Hematology - Neymar [address] [facility] 200 [place] [address] Yosef Salmeron MD [address] [facility] [address] [place] [address] documented as of this encounter Visit Diagnoses Not on filedocumented in this encounter Care Teams Scientific Informatics Analyst Relationship Specialty Start Date End Date Julien Doan DO 118[address] [facility] [address] [place] [phone] PCP - General Internal Medicine 09/12/22 documented as of this encounter
--- OUTSIDE RECORDS SUMMARY | 2024-05-06 09:00 | XMS_ITS | Encounter Summary ---
Author Organization [facility] Address [address] [place] [address] Care Team Providers Care Indirect Fire Infantryman Name Role Phone Julien Doan DO Primary Care Provider Encounter Details Date Type Department Care Team (Late st Contact Info) Description 06/26/2023 External Device Data STL ABSTRACTION Provider, Abstract [...] st Contact Info) Description 06/13/2024 10:15 AM AUTOMATION ENGINEERING MANAGER Office Visit [facility] Oncology and Hematology - Neymar [address] [facility] [address] [place] [address] Yosef Salmeron MD [address] [facility] [address] [place] [address] documented as of this encounter Visit Diagnoses Not on filedocumented in this encounter Care Teams Indirect Fire Infantryman Relationship Specialty Start Date End Date Julien Doan DO 118[address] [facility] [address] [place] [phone] PCP - General Internal Medicine 09/12/22 documented as of this encounter
--- OUTSIDE RECORDS SUMMARY | 2024-05-06 09:00 | XMS_ITS | Encounter Summary ---
Author Organization [facility] Address [address] [place] [address] Care Team Providers Care Fire Hydrant Mechanic Name Role Phone Julien Doan DO Primary Care Provider Encounter Details Date Type Department Care Team (Late st Contact Info) Description 06/07/2023 External Device Data STL ABSTRACTION Provider, Abstract [...] Contact Info) Description 06/13/2024 10:15 AM SUPERVISOR FRAME SAMPLE AND PATTERN Office Visit [facility] Oncology and Hematology - [place]ym[place] [address] [facility] [address] [place] [address] Yosef Salmeron MD [address] [facility] [address] [place] [address] documented as of this encounter Visit Diagnoses Not on filedocumented in this encounter Care Teams Fire Hydrant Mechanic Relationship Specialty Start Date End Date Julien Doan DO [address] [facility] [address] [place] [phone] PCP - General Internal Medicine 09/12/22 documented as of this encounter
--- OUTSIDE RECORDS SUMMARY | 2024-05-06 09:00 | XMS_ITS | Encounter Summary ---
Author Organization [facility] Address [address] [place] [address] Care Team Providers Care Cosmetics Machine Operator Name Role Phone Patrickmari Julien Joseph Primary Care Provider Reason for Visit * Reason Comments Follow Up Encounter Details Date Type Department Care Team (Late st Contact Info) Description 06/05/2023 2:15 PM VICE PRESIDENT QUALITY ASSURANCE Office Visit [facility] Oncology and Hematology - [place]ym[place] [address] [email or web address] [address] [place] [address] Yosef Salmeron MD [address] [facility] [address] [place] [address] Malignant neoplasm of transverse colon (Primary Dx) Social History Tobacco Use Types Packs/Day Years Used Date Smoking Tobacco: Former Cigarettes Q uit: 2001 Smokeless Tobacco: Never Tobacco Cessation:Counseling Given: Not [...] Sign Reading Time Taken Comments Blood Pressure 161/104 06/05/2023 2:06 PM VICE PRESIDENT QUALITY ASSURANCE Pulse 78 06/05/2023 2:05 PM VICE PRESIDENT QUALITY ASSURANCE Temperature 36.1 ??C (96.9 ??F) 06/05/2023 2:05 PM CS T Respiratory Rate 10 06/05/2023 2:05 PM VICE PRESIDENT QUALITY ASSURANCE Oxygen Saturation 98% 06/05/2023 2:05 PM VICE PRESIDENT QUALITY ASSURANCE Inhaled Oxygen Concentration - - Weight 112 kg (247 lb) 06/05/2023 2:05 PM VICE PRESIDENT QUALITY ASSURANCE Height - - Body Mass Index 38.11 12/16/2021 10:49 AM CDT documented in this encounter Progress Notes * Yosef Salmeron MD - 06/05/2023 2:47 PM CST HEMATOLOGY / ONCOLOGY PROGRESS NOTE Patient Identification: [...] to the office for follow-up visit. She denies any melena hematochezia. No diarrhea andconstipation. Weight and appetite stable. No other new complaints. Review of system Constitutional: denies fevers, sweats, weight and appetite stable, denies any tiredness and fatigueHEENT: denies sinus congestion, hearing or vision problems Respiratory: denies cough, dyspnea, wheeze Cardiovascular: denies chest pain, exertional chest pressure/discomfort, nausea, syncope, shortnessof breath GI: denies dsyphagia, reflux symptoms, vomiting, melena, denies any constipation : denies dysuria, frequency, incontinence, urgency Integumentary system: no lymphadenopathy, sweats, flushing Musculoskeletal: denies: myalgia, arthralgia Neurological: denies blurry or disturbed vision, mild peripheral neuropathy skin: No lumps, bumps or rashes. 12 point review system was reviewed objective: Vital signs in [...] showed creatinine 0.7 CEA 1.8 hemoglobin 12.9 Assessment: Plan: Patient Active Problem List Diagnosis [...] showed no evidence of relapse of disease. T CT scan done on May 22 showed no evidence of relapse of disease. There is diffuse fatty liver. Labs including CEA normal. I recommended regular exercise and weight loss. Follow-up with me in 6 months. Anemia. Resolved. Chemo induced neuropathy. Stable. Elevated liver enzymes. I have recommended regular exercise and weight loss. Follow-up in 6 months. TOBACCO COUNSELING She is not a tobacco/nicotine user. 06/05/2023 Yosef Salmeron MD PRESIDENT QUALITY ASSURANCE documented in this encounter Plan of Treatment Upcoming Encounters Date Type Department Care Team (Late st Contact Info) Description 06/13/2024 10:15 AM VICE PRESIDENT QUALITY ASSURANCE Office Visit [facility] Oncology and Hematology [facility] [address] [email or web address] [address] [place] [address] Yosef Salmeron MD [address] [facility] [address] [place] [address] Scheduled Orders Name Type Priority Associated Diagnoses Orde r Schedule CBC WITH DIFFERENTIAL Lab Stat Malignant neoplasm of transverse colon Expected: 12/04/2023, Expires: 06/05/2024 CEA Lab Routine Malignant neoplasm of transverse colon Expected: 12/04/2023, Expires: 06/05/2024 COMPREHENSIVE METABOLIC PANEL Lab Stat Malignant neoplasm of transverse colon Expected: 12/04/2023, Expires: 06/05/2024 documented as of this encounter Visit Diagnoses Diagnosis Malignant neoplasm of transverse colon- Primary documented in this encounter Care Teams Cosmetics Machine Operator Relationship Specialty Start Date End Date Julien Doan DO [address] [facility] [address] [place] [address] PCP - General Internal Medicine 09/12/22 documented as of this encounter
--- OUTSIDE RECORDS SUMMARY | 2024-05-06 09:00 | XMS_ITS | Encounter Summary ---
Author Organization [facility] [employer] [facility] Address [address] [place] [address] Care Team Providers Care Quality Consultant Name Role Phone Patrickmari Julien Joseph Primary Care Provider Encounter Details Date Type Department Care Team (Late Contact Info) Description 05/22/2023 Orders Only [facility] [address] [place] [address] Yosef Salmeron MD [facility] [address] [place] [address] Social History Tobacco Use Types Packs/Day [...] st Contact Info) Description 06/13/2024 10:15 AM INSURANCE VERIFICATION CLERK Office Visit [facility] Oncology and Hematology [facility] [address] [place] [address] Yosef Salmeron MD [address] [place] [address] documented as of this encounter Procedures Procedure Name Priority Date/Time Associated Diagnosis Comments CT ABDOMEN PELVIS W CONTRAST Routine 05/22/2023 1:47 PM INSURANCE VERIFICATION CLERK COMPREHENSIVE METABOLIC PANEL Routine 05/22/2023 11:29 AM INSURANCE VERIFICATION CLERK documented in this encounter Results * CT ABDOMEN PELVIS W CONTRAST (05/22/2023 1:47 PM INSURANCE VERIFICATION CLERK) Anatomical Region Laterality Modality Abdomen Other Yosef Salmeron MD CT ORDERABLES * COMPREHENSIVE METABOLIC PANEL (05/22/2023 11:29 AM INSURANCE VERIFICATION CLERK) Blood Yosef Salmeron MD CHEMISTRY ORDERABLES documented in this encounter Visit Diagnoses Not on filedocumented in this encounter Care Teams Quality Consultant Relationship Specialty Start Date End Date Julien Doan DO [address] [address] PCP - General Internal Medicine 09/12/22 documented as of this encounter
--- OUTSIDE RECORDS SUMMARY | 2024-05-06 09:01 | XMS_ITS | Encounter Summary ---
Author Organization [facility] [employer] [facility] Address [address] [place] [address] Care Team Providers Care Plumber Apprentice Name Role Phone Cornelio Rayo DO Primary Care Provider [phone] Encounter Details Date Type Department Care Team (Late Contact Info) Description 04/11/2022 Orders Only [facility] Oncology and Hematology [facility] [address] [place] [address] Yosef Salmeron MD [address] [facility] [address] [place] [address] Malignant neoplasm of transverse colon; Chronic anemia Social History Tobacco Use Types Packs/Day Years [...] file Not on file Not on file COVID-19 Exposure Response Date Recorded In the last 10 days, have yo u been in contact with someone who was confirmed or suspected to have Coronavirus/COVID-19? No / Unsure 03/17/2022 11:24 AM REGISTERED NURSE MIDWIFE documented as of this encounter Plan of Treatment Upcoming Encounters Date Type Department Care Team (Late Contact Info) Description 06/13/2024 10:15 AM REGISTERED NURSE MIDWIFE Office Visit [facility] Oncology and Hematology [facility] [address] [place] [address] Yosef Salmeron MD [address] [facility] [address] [place] [address] documented as of this encounter Visit Diagnoses Diagnosis Malignant neoplasm of transverse colon Chronic anemia Anemia, unspecified documented in this encounter Care Teams Plumber Apprentice Relationship Specialty Start Date End Date Cornelio Rayo DO [address] [facility] [address] [place] [address] PCP - General Internal Medicine 03/08/21 09/11/22 documented as of this encounter
--- OUTSIDE RECORDS SUMMARY | 2024-05-06 09:01 | XMS_ITS | Encounter Summary ---
Author Organization [facility] Address [address] [facility] Attn: Epic Prelude ADT [place] [address] Care Team Providers Care Bargeman Name Role Phone Cornelio Rayo DO Primary Care Provider [phone] Encounter Details Date Type Department Care Team (Latest Contact Info) Description 06/16/2022 Travel Social History Tobacco Use Types Packs/Day Years [...] suspected to have Coronavirus/COVID-19? No / Unsure 06/16/2022 8:54 AM CISTERN ROOM OPERATOR documented as of this encounter Plan of Treatment Upcoming Encounters Date Type Department Care Team (Late st Contact Info) Description 06/13/2024 10:15 AM CISTERN ROOM OPERATOR Office Visit [facility] Oncology and Hematology - [place] [address] [place] [address] Yosef Salmeron MD [address] [facility] [address] [place] [address] documented as of this encounter Visit Diagnoses Not on filedocumented in this encounter Care Teams Bargeman Relationship Specialty Start Date End Date Cornelio Rayo DO 6812 [facility] 162 [facility] [address] [place] [address] PCP - General Internal Medicine 03/08/21 09/11/22 documented as of this encounter
--- OUTSIDE RECORDS SUMMARY | 2024-05-06 09:01 | XMS_ITS | Encounter Summary ---
Author Organization [facility] CARLOS EDUARD[facility] Address [address] [place] [address] Care Team Providers Care Optical Instruments Supervisor Name Role Phone Cornelio Rayo DO Primary Care Provider [phone] Reason for Visit * Reason Comments Cancer Encounter Details Date Type Department Care Team (Late st Contact Info) Description 03/17/2022 11:45 AM FILTER BED PLACER Office Visit [facility] Oncology and Hematology - [place] [address] [facility] [address] [place] [address] Yosef Salmeron MD [address] [facility] [address] [place] [address] Malignant neoplasm of transverse colon [...] Coronavirus/COVID-19? No / Unsure 03/17/2022 11:24 AM FILTER BED PLACER documented as of this encounter Last Filed Vital Signs Vital Sign Reading Time Taken Comments Blood Pressure 124/88 03/17/2022 11:42 AM FILTER BED PLACER Pulse 60 03/17/2022 11:42 AM FILTER BED PLACER Temperature 36.1 ??C (97 ??F) 03/17/2022 11:42 AM FILTER BED PLACER Respiratory Rate 20 03/17/2022 11:42 AM FILTER BED PLACER Oxygen Saturation 99% 03/17/2022 11:42 AM FILTER BED PLACER Inhaled Oxygen Concentration - - Weight 103 kg (227 lb 1.6 oz) 03/17/2022 11:42 A M FILTER BED PLACER Height - - Body Mass Index 35.04 12/16/2021 10:49 AM CDT documented in this encounter Progress Notes * Yosef Salmeron MD - 03/17/2022 1:43 PM CST HEMATOLOGY / ONCOLOGY PROGRESS NOTE Patient Identification: Name: Mary Earl Age: 52 y.o. Sex: female : 1970 DIAGNOSIS T3 [...] of chemotherapy on 2021. SUBJECTIVE Patient came into the office for follow-up visit. She denies any diarrhea. Neuropathy has been improving. She has intentionally lost almost 20 pound weight. No other new complaint. Review of system Constitutional: denies fevers, sweats, improvement in tiredness and fatigue with intentional 20 pound weight loss HEENT: denies sinus congestion, hearing or vision problems Respiratory: denies cough, dyspnea, wheeze Cardiovascular: denies chest pain, exertional chest pressure/discomfort, nausea, syncope, shortnessof breath GI: denies dsyphagia, reflux symptoms, vomiting, melena, denies any constipation : denies dysuria, frequency, incontinence, urgency Integumentary system: no lymphadenopathy, sweats, flushing Musculoskeletal: denies: myalgia, arthralgia Neurological: denies blurry or disturbed vision, improvement in peripheral neuropathy skin: No lumps, bumps or rashes. 12 point review system was reviewed and as above objective: Vital signs in last 24 hours: [...] No lymphadenopathy Neuro: No obvious focal deficit Examination as above PATH LABS Labs from 05/12/2021 [...] March 14 showed hemoglobin 13.2 creatinine 0.8 Assessment: Plan: Patient Active Problem List Diagnosis [...] showed no evidence of relapse of disease. CT abdomen and pelvis done on March 14 showed no evidence of relapse of disease. Labs including CEA normal. Evidence of relapse of disease on my examination. I plan to see her backin 3 months with repeat labs. Patient will contact Dr. Madhuri Pierce for port removal. Repeat colonoscopy will be done in 3 years. Anemia. Hemoglobin stable. She can continue iron and vitamin B12. Leukopenia. Resolved. Chemotherapy-induced neuropathy. Slowly improving. Follow-up in 3 months. TOBACCO COUNSELING She is not a tobacco user. . 03/17/2022 Yosef Salmeron MD ER BED PLACER documented in this encounter Plan of Treatment Upcoming Encounters Date Type Department Care Team (Late st Contact Info) Description 06/13/2024 10:15 AM FILTER BED PLACER Office Visit [facility] Oncology and Hematology [facility] [address] [place] [address] [address] [place] [address] Yosef Salmeron MD [address] [facility] [address] [place] [address] Scheduled Orders Name Type Priority Associated Diagnoses Orde r Schedule CBC WITH DIFFERENTIAL Lab Stat Malignant neoplasm of transverse colon Expected: 06/09/2022, Expires: 03/17/2023 COMPREHENSIVE METABOLIC PANEL Lab Stat Malignant neoplasm of transverse colon Expected: 06/09/2022, Expires: 03/17/2023 documented as of this encounter Visit Diagnoses Diagnosis Malignant neoplasm of transverse colon- Primary documented in this encounter Care Teams Optical Instruments Supervisor Relationship Specialty Start Date End Date Cornelio Rayo DO [address] [place] [address] PCP - General Internal Medicine 03/08/21 09/11/22 documented as of this encounter
--- OUTSIDE RECORDS SUMMARY | 2024-05-06 09:01 | XMS_ITS | Encounter Summary ---
Author Organization [facility] [employer] [facility] Address [address] [place] [address] Care Team Providers Care Manager Family Name Role Phone Cornelio Rayo DO Primary Care Provider [phone] Encounter Details Date Type Department Care Team (Late Contact Info) Description 04/04/2022 Orders Only [facility] Oncology and Hematology [facility] [address] [place] [address] Birdie Nelson Malignant neoplasm of transverse colon Social History Tobacco Use Types Packs/Day Years [...] Coronavirus/COVID-19? No / Unsure 03/17/2022 11:24 AM STOCK CLERK documented as of this encounter Plan of Treatment Upcoming Encounters Date Type Department Care Team (Late Contact Info) Description 06/13/2024 10:15 AM STOCK CLERK Office Visit [facility] Oncology and Hematology [facility] [address] [place] [address] Yosef Salmeron MD [address] [facility] [address] [place] [address] documented as of this encounter Visit Diagnoses Diagnosis Malignant neoplasm of transverse colon documented in this encounter Care Teams Manager Family Relationship Specialty Start Date End Date Cornelio Rayo DO 6812 [facility] 162 [facility] [address] [place] [address] PCP - General Internal Medicine 03/08/21 09/11/22 documented as of this encounter
--- OUTSIDE RECORDS SUMMARY | 2024-05-06 09:01 | XMS_ITS | Encounter Summary ---
Author Organization [facility] [employer] [facility] Address [address] [place] [address] Care Team Providers Care Esters And Emulsifiers Supervisor Name Role Phone Cornelio Rayo DO Primary Care Provider [phone] Encounter Details Date Type Department Care Team (Late Contact Info) Description 09/06/[address] [facility] Oncology and Hematology [facility] [address] [place] [address] Fan Goodman RN Malignant neoplasm of transverse colon Social History [...] Upcoming Encounters Date Type Department Care Team ([facility] Contact Info) Description 06/13/2024 10:15 AM TRAFFIC ENUMERATOR Office Visit [facility] Oncology and Hematology [facility] [address] [place] [address] Yosef Salmeron MD [address] [facility] [address] [place] [address] documented as of this encounter Visit Diagnoses Diagnosis Malignant neoplasm of transverse colon documented in this encounter Care Teams Esters And Emulsifiers Supervisor Relationship Specialty Start Date End Date Cornelio Rayo DO [address] [facility] [address] [place] [address] PCP - General Internal Medicine 03/08/21 09/11/22 documented as of this encounter
--- OUTSIDE RECORDS SUMMARY | 2024-05-06 09:01 | XMS_ITS | Encounter Summary ---
Author Organization [facility] [employer] [facility] Address [address] [place] [address] Care Team Providers Care Lay Brother Name Role Phone Cornelio Rayo DO Primary Care Provider [phone] Encounter Details Date Type Department Care Team (Late Contact Info) Description 06/20/2022 Orders Only [facility] Oncology and Hematology [facility] [address] [place] [address] Yosef Salmeron MD [address] [facility] [address] [place] [address] Malignant neoplasm of transverse colon; [...] Coronavirus/COVID-19? No / Unsure 06/16/2022 8:54 AM GUIDE DOG TRAINER documented as of this encounter Plan of Treatment Upcoming Encounters Date Type Department Care Team (Late Contact Info) Description 06/13/2024 10:15 AM GUIDE DOG TRAINER Office Visit [facility] Oncology and Hematology [facility] [address] [place] [address] Yosef Salmeron MD [address] [facility] [address] [place] [address] documented as of this encounter Visit Diagnoses Diagnosis Malignant neoplasm of transverse colon Chronic anemia Anemia, unspecified documented in this encounter Care Teams Lay Brother Relationship Specialty Start Date End Date Cornelio Rayo DO [address] [facility] [address] [place] [address] PCP - General Internal Medicine 03/08/21 09/11/22 documented as of this encounter
--- OUTSIDE RECORDS SUMMARY | 2024-05-06 09:01 | XMS_ITS | Encounter Summary ---
Author Organization [facility] [employer] [facility] Address [address] [place] [address] Care Team Providers Care Sales Host Name Role Phone Cornelio Rayo DO Primary Care Provider [phone] Encounter Details Date Type Department Care Team (Late Contact Info) Description 12/20/2021 Orders Only [facility] Oncology and Hematology [facility] [address] [place] [address] Yosef Salmeron MD [address] [facility] [address] [place] [address] Malignant neoplasm of transverse colon; [...] suspected to have Coronavirus/COVID-19? No / Unsure 12/16/2021 10:42 AM CDT documented as of this encounter Plan of Treatment Upcoming Encounters Date Type Department Care Team (Late Contact Info) Description 06/13/2024 10:15 AM MARKETING LIAISON Office Visit [facility] Oncology and Hematology [facility] [address] [place] [address] Yosef Salmeron MD [address] [facility] [address] [place] [address] documented as of this encounter Visit Diagnoses Diagnosis Malignant neoplasm of transverse colon Chronic anemia Anemia, unspecified documented in this encounter Care Teams Sales Host Relationship Specialty Start Date End Date Cornelio Rayo DO [address] [facility] [address] [place] [address] PCP - General Internal Medicine 03/08/21 09/11/22 documented as of this encounter
--- OUTSIDE RECORDS SUMMARY | 2024-05-06 09:01 | XMS_ITS | Encounter Summary ---
Author Organization [facility] [employer] [facility] Address [address] [place] [address] Care Team Providers Care Plastic Surgery Technician Name Role Phone Julien Doan Primary Care Provider Encounter Details Date Type Department Care Team ([facility] Contact Info) Description 09/07/2022 Orders Only [facility] Oncology and Hematology [facility] [address] [place] [address] Edie Crabtree Malignant neoplasm of transverse colon Social History [...] suspected to have Coronavirus/COVID-19? No / Unsure 09/12/2022 2:09 PM CDT documented as of this encounter Plan of Treatment Upcoming Encounters Date Type Department Care Team ([facility] Contact Info) Description 06/13/2024 10:15 AM WEB COMMUNICATIONS SPECIALIST Office Visit [facility] Oncology and Hematology [facility] [address] [place] [address] Yosef Salmeron MD [address] [facility] [address] [place] [address] documented as of this encounter Visit Diagnoses Diagnosis Malignant neoplasm of transverse colon documented in this encounter Care Teams Plastic Surgery Technician Relationship Specialty Start Date End Date Julien Doan DO [address] [address] PCP - General Internal Medicine 09/12/22 documented as of this encounter
--- OUTSIDE RECORDS SUMMARY | 2024-05-06 09:01 | XMS_ITS | Encounter Summary ---
Author Organization [facility] [employer] [facility] Address [address] [place] [address] Care Team Providers Care Bottom Steep Tender Name Role Phone Cornelio Rayo DO Primary Care Provider [phone] Encounter Details Date Type Department Care Team (Late Contact Info) Description 06/09/2022 Orders Only [facility] Oncology and Hematology [facility] [address] [place] [address] Birdie Nelson Malignant neoplasm of [...] (Late Contact Info) Description 06/13/2024 10:15 AM JUICE SCALEMAN Office Visit [facility] Oncology and Hematology - [place] [address] [place] [address] Yosef Salmeron MD [address] [facility] [address] [place] [address] documented as of this encounter Visit Diagnoses Diagnosis Malignant neoplasm of transverse colon documented in this encounter Care Teams Bottom Steep Tender Relationship Specialty Start Date End Date Cornelio Rayo DO [address] [facility] [address] [address] PCP - General Internal Medicine 03/08/21 09/11/22 documented as of this encounter
--- OUTSIDE RECORDS SUMMARY | 2024-05-06 09:01 | XMS_ITS | Encounter Summary ---
Author Organization [facility] [employer] [facility] Address [address] [place] [address] Care Team Providers Care Home Attendant Name Role Phone Cornelio Rayo DO Primary Care Provider [phone] Encounter Details Date Type Department Care Team (Late Contact Info) Description 07/18/2022 Orders Only [facility] Oncology and Hematology [facility] [address] [place] [address] Yosef Salmeron MD [facility] [address] [address] [place] [address] Malignant neoplasm of transverse colon; Chronic [...] (Late Contact Info) Description 06/13/2024 10:15 AM SLATE CUTTER Office Visit [facility] Oncology and Hematology [facility] [address] [place] [address] Yosef Salmeron MD [address] [place] [address] documented as of this encounter Visit Diagnoses Diagnosis Malignant neoplasm of transverse colon Chronic anemia Anemia, unspecified documented in this encounter Care Teams Home Attendant Relationship Specialty Start Date End Date Cornelio Rayo DO 6812 [facility] 162 [facility] [address] [place] [address] PCP - General Internal Medicine 03/08/21 09/11/22 documented as of this encounter
--- OUTSIDE RECORDS SUMMARY | 2024-05-06 09:01 | XMS_ITS | Encounter Summary ---
Author Organization [facility] Address [address] [facility] Attn: Epic Prelude ADT OLLIE HERRMANN [address] Care Team Providers Care Transportation Director Name Role Phone Julien Doan DO Primary Care Provider Encounter Details Date Type Department Care Team (Latest Contact Info) Description 09/12/2022 Travel Social History Tobacco Use Types Packs/Day [...] st Contact Info) Description 06/13/2024 10:15 AM VP PATIENT Office Visit [facility] Oncology and Hematology - [place] [address] [facility] [address] [place] [address] Yosef Salmeron MD [address] [facility] [address] [place] [address] documented as of this encounter Visit Diagnoses Not on filedocumented in this encounter Care Teams Transportation Director Relationship Specialty Start Date End Date Julien Doan DO [address] [facility] [address] [place] [address] PCP - General Internal Medicine 09/12/22 documented as of this encounter
--- OUTSIDE RECORDS SUMMARY | 2024-05-06 09:01 | XMS_ITS | Encounter Summary ---
Author Organization [facility] [employer] [facility] Address [address] [place] [address] Care Team Providers Care Felt Tipping Machine Tender Name Role Phone Cornelio Rayo DO Primary Care Provider [phone] Encounter Details Date Type Department Care Team (Late Contact Info) Description 08/15/2022 Orders Only [facility] Oncology and Hematology [facility] [address] [place] [address] [facility] [employer] [address] [place] [address] Malignant neoplasm of transverse colon; Chronic [...] (Late Contact Info) Description 06/13/2024 10:15 AM SILK SCREEN PROCESSOR Office Visit [facility] Oncology and Hematology [facility] [address] [place] [address] Yosef Salmeron MD [address] [employer] [address] [place] [address] documented as of this encounter Visit Diagnoses Diagnosis Malignant neoplasm of transverse colon Chronic anemia Anemia, unspecified documented in this encounter Care Teams Felt Tipping Machine Tender Relationship Specialty Start Date End Date Cornelio Rayo DO 6812 [facility] 162 [facility] [address] [place] [address] PCP - General Internal Medicine 03/08/21 09/11/22 documented as of this encounter
--- OUTSIDE RECORDS SUMMARY | 2024-05-06 09:01 | XMS_ITS | Encounter Summary ---
Author Organization [facility] [employer] [place] [facility] Address [address] [place] [address] Care Team Providers Care Wreath Maker Name Role Phone Cornelio Rayo Primary Care Provider [phone] Reason for Referral * Eval and Treat (Routine) - Closed Specialty Diagnoses / Procedures Referred By Contmalissa t Referred To Contact Surgery Diagnoses Malignant neoplasm of transverse colon Yosef Salmeron MD [address] [employer] [address] [place] [address] [place] [address] Referral ID Status Reason Start Date Expiration Date V isits Requested Visits Authorized [id number] Closed [facility] CTS 03/22/2022 03/22/2023 1 1 GER BUSINESS Encounter Details Date Type Department Care Team (Late st Contact Info) Description 03/22/2022 Orders Only [facility] Oncology and Hematology [place] [address] [address] [facility] [address] [place] [address] Yosef Salmeron MD [address] [employer] [address] [place] [address] Malignant neoplasm of transverse colon [...] Coronavirus/COVID-19? No / Unsure 03/17/2022 11:24 AM MANAGER BUSINESS documented as of this encounter Plan of Treatment Upcoming Encounters Date Type Department Care Team (Late st Contact Info) Description 06/13/2024 10:15 AM MANAGER BUSINESS Office Visit [facility] Oncology and Hematology - [place] 2[address] [facility] [address] [place] [address] Yosef Salmeron MD [address] [facility] [address] [place] [address] Scheduled Referrals Name Type Priority Associated Diagnoses Orde r Schedule AMB REFERRAL TO GENERAL SURGERY Outpatient Referral Routine Malignant neoplasm of transverse colon Ordered: 03/22/2022 documented as of this encounter Visit Diagnoses Diagnosis Malignant neoplasm of transverse colon- Primary documented in this encounter Care Teams Wreath Maker Relationship Specialty Start Date End Date Cornelio Rayo DO 6812 [facility] [address] [place] [address] PCP - General Internal Medicine 03/08/21 09/11/22 documented as of this encounter
--- OUTSIDE RECORDS SUMMARY | 2024-05-06 09:01 | XMS_ITS | Encounter Summary ---
Author Organization [facility] [employer] [facility] Address [address] [place] [address] Care Team Providers Care Glass Finisher Name Role Phone Cornelio Rayo DO Primary Care Provider [phone] Encounter Details Date Type Department Care Team (Late Contact Info) Description 03/14/2022 Orders Only [facility] On[facility] [address] [place] [address] Yosef Salmeron MD [address] [facility] [employer] [address] [place] [address] Malignant neoplasm of transverse colon; [...] Coronavirus/COVID-19? No / Unsure 03/17/2022 11:24 AM HAIR MACHINE OPERATOR documented as of this encounter Plan of Treatment Upcoming Encounters Date Type Department Care Team (Late Contact Info) Description 06/13/2024 10:15 AM HAIR MACHINE OPERATOR Office Visit [facility] On[facility] [address] [place] [address] Yosef Salmeron MD [address] [facility] [address] [place] [address] documented as of this encounter Visit Diagnoses Diagnosis Malignant neoplasm of transverse colon Chronic anemia Anemia, unspecified documented in this encounter Care Teams Glass Finisher Relationship Specialty Start Date End Date Cornelio Rayo DO [address] [facility] [address] [place] [address] PCP - General Internal Medicine 03/08/21 09/11/22 documented as of this encounter
--- OUTSIDE RECORDS SUMMARY | 2024-05-06 09:01 | XMS_ITS | Encounter Summary ---
Author Organization [facility] [employer] [facility] Address [address] [place] [address] Care Team Providers Care Garden Implement Mechanic Name Role Phone Cornelio Rayo DO Primary Care Provider Encounter Details Date Type Department Care Team (Late Contact Info) Description 01/31/2022 Orders Only [facility] Oncology and Hematology [facility] [address] [place] [address] Yosef Salmeron MD [facility] [employer] [address] [place] [address] Malignant neoplasm of transverse colon; Chronic [...] (Late Contact Info) Description 06/13/2024 10:15 AM OUTSIDE SALES Office Visit [facility] Oncology and Hematology [facility] [address] [place] [address] Yosef Salmeron MD [address] [employer] [address] [place] [address] documented as of this encounter Visit Diagnoses Diagnosis Malignant neoplasm of transverse colon Chronic anemia Anemia, unspecified documented in this encounter Care Teams Garden Implement Mechanic Relationship Specialty Start Date End Date Cornelio Rayo DO 6812 [facility] [address] [facility] [address] [place] [address] PCP - General Internal Medicine 03/08/21 09/11/22 documented as of this encounter
--- OUTSIDE RECORDS SUMMARY | 2024-05-06 09:01 | XMS_ITS | Encounter Summary ---
Author Organization [facility] Address [address] [place] [address] Care Team Providers Care Heel Sander Rubber Name Role Phone Cornelio Rayo DO Primary Care Provider [phone] Encounter Details Date Type Department Care Team (Late Contact Info) Description 03/30/2022 Orders Only [facility] Oncology and Hematology [facility] [address] [place] [address] Birdie Nelson Malignant neoplasm of [...] Coronavirus/COVID-19? No / Unsure 03/17/2022 11:24 AM CLIENT RELATIONSHIP CONSULTANT documented as of this encounter Plan of Treatment Upcoming Encounters Date Type Department Care Team (Late Contact Info) Description 06/13/2024 10:15 AM CLIENT RELATIONSHIP CONSULTANT Office Visit [facility] Oncology and Hematology [facility] [address] [place] [address] Yosef Salmeron MD [address] [facility] [address] [place] [address] documented as of this encounter Visit Diagnoses Diagnosis Malignant neoplasm of transverse colon documented in this encounter Care Teams Heel Sander Rubber Relationship Specialty Start Date End Date Cornelio Rayo DO 6812 [facility] [address] [facility] [address] [place] [address] PCP - General Internal Medicine 03/08/21 09/11/22 documented as of this encounter
--- OUTSIDE RECORDS SUMMARY | 2024-05-06 09:01 | XMS_ITS | Encounter Summary ---
Author Organization [facility] [employer] [facility] Address [address] [place] [address] Care Team Providers Care Electrical Test Technician Name Role Phone RealsuhaJulienian Primary Care Provider Reason for Visit * Reason Comments Follow Up Encounter Details Date Type Department Care Team (Late st Contact Info) Description 09/12/2022 2:15 PM CDT Office Visit [facility] Oncology and Hematology - [place] 2[address] [facility] [address] [place] [address] Yosef Salmeron MD [address] [facility] [address] [place] [address] Malignant neoplasm of transverse colon [...] PM CDT documented as of this encounter Last Filed Vital Signs Vital Sign Reading Time Taken Comments Blood Pressure 155/96 09/12/2022 2:14 PM CDT Pulse 91 09/12/2022 2:13 PM CDT Temperature 36.6 ??C (97.8 ??F) 09/12/2022 2:13 PM CD T Respiratory Rate 10 09/12/2022 2:13 PM CDT Oxygen Saturation 99% 09/12/2022 2:13 PM CDT Inhaled Oxygen Concentration - - Weight 111.6 kg (246 lb) 09/12/2022 2:13 PM CDT Height - - Body Mass Index 37.96 12/16/2021 10:49 AM CDT documented in this encounter Progress Notes * Yosef Salmeron MD - 09/12/2022 2:37 PM CDT HEMATOLOGY / ONCOLOGY PROGRESS NOTE [...] office for follow-up visit. She has gained 15 pound weight. Denies any melena hematochezia. No diarrhea and constipation. Neuropathy slowly improving. No other new complaint. Review of system Constitutional: denies fevers, sweats, 15 pound weight gain HEENT: denies sinus congestion, hearingor vision problems Respiratory: denies cough, dyspnea, wheeze Cardiovascular: denies chest pain, exertional chest pressure/discomfort, nausea, syncope, shortnessof breath GI: denies dsyphagia, reflux symptoms, vomiting, melena, denies any constipation : denies dysuria, frequency, incontinence, urgency Integumentary system: no lymphadenopathy, sweats, flushing Musculoskeletal: denies: myalgia, arthralgia Neurological: denies blurry or disturbed vision, improvement peripheral neuropathy skin: No lumps, bumps or [...] 2.1 AST 27 ALT 31 CBC normal. Assessment: Plan: Patient Active Problem List Diagnosis [...] showed no evidence of relapse of disease. Niccoli she remains asymptomatic. She has been gaining weight. CEA normal. CT scan done on September 06 showed no evidence of metastatic disease. I will see her back in 4 months with repeat labs. Repeat imaging study will be done in 8 months. I have commended regular exercise and weight loss. Anemia. Resolved. Leukopenia. Resolved. Chemotherapy-induced neuropathy. Slowly improving. Follow-up in 4 months. TOBACCO COUNSELING She is not a tobacco user. 09/12/2022 Yosef Salmeron MD documented in this encounter Plan of Treatment Upcoming Encounters Date Type Department Care Team (Late st Contact Info) Description 06/13/2024 10:15 AM ENGINEERING PROJECT MANAGER Office Visit [facility] Oncology and Hematology [facility] [address] [place] [address] [address] [place] [address] Yosef Salmeron MD [address] [facility] [address] [place] [address] documented as of this encounter Visit Diagnoses Diagnosis Malignant neoplasm of transverse colon- Primary documented in this encounter Care Teams Electrical Test Technician Relationship Specialty Start Date End Date Julien Doan DO [address] [facility] [address] [place] [address] PCP - General Internal Medicine 09/12/22 documented as of this encounter
--- OUTSIDE RECORDS SUMMARY | 2024-05-06 09:01 | XMS_ITS | Encounter Summary ---
Author Organization [facility] Address [address] [facility] Attn: Epic Prelude ADT OLLIE HERRMANN [address] Care Team Providers Care Payroll Professional Name Role Phone Cornelio Rayo DO Primary Care Provider [phone] Encounter Details Date Type Department Care Team (Latest Contact Info) Description 12/16/2021 Travel Social History Tobacco Use Types Packs/Day [...] st Contact Info) Description 06/13/2024 10:15 AM BOILER COVERER HELPER Office Visit [facility] Oncology and Hematology - [place] [address] [facility] [address] [place] [address] Yosef Salmeron MD [address] [facility] [address] [place] [address] documented as of this encounter Visit Diagnoses Not on filedocumented in this encounter Care Teams Payroll Professional Relationship Specialty Start Date End Date Cornelio Rayo DO 6812 [facility] 162 [facility] [address] [place] [address] PCP - General Internal Medicine 03/08/21 09/11/22 documented as of this encounter
--- OUTSIDE RECORDS SUMMARY | 2024-05-06 09:01 | XMS_ITS | Encounter Summary ---
Author Organization [facility] [place] [facility] Address [address] [place] [address] Care Team Providers Care Fire Alarm Dispatcher Name Role Phone Perri Cornelio L Primary Care Provider [phone] Reason for Referral * CT Scan (Routine) - Closed Specialty Diagnoses / Procedures Referred By Contmalissa t Referred To Contact Diagnoses Malignant neoplasm of transverse colon Procedures CT ABDOMEN PELVIS W CONTRAST Yosef Salmeron MD [address] [employer] [address] [place] [address] [place] [address] Referral ID Status Reason Start Date Expiration Date V isits Requested Visits Authorized [id number] Closed ST[facility] CTS 03/04/2022 05/02/2022 1 1 Encounter Details Date Type Department Care Team (Late st Contact Info) Description 01/17/2022 Orders Only [facility] Oncology and Hematology [address] [facility] [address] [place] [address] Yosef Salmeron MD [address] [place] [address] Malignant neoplasm of transverse colon; [...] st Contact Info) Description 06/13/2024 10:15 AM OAK TANNER Office Visit [facility] Oncology and Hematology - [place] [address] [facility] [address] [place] [address] Yosef Salmeron MD [address] [facility] [address] [place] [address] Scheduled Orders Name Type Priority Associated Diagnoses Orde r Schedule CT ABDOMEN PELVIS W CONTRAST Imaging Routine Malignant neoplasm of transverse colon Expected: 03/10/2022, Expires: 01/20/2023 documented as of this encounter Visit Diagnoses Diagnosis Malignant neoplasm of transverse colon Chronic anemia Anemia, unspecified documented in this encounter Care Teams Fire Alarm Dispatcher Relationship Specialty Start Date End Date Cornelio Rayo DO [address] [facility] [address] [place] [address] PCP - General Internal Medicine 03/08/21 09/11/22 documented as of this encounter
--- OUTSIDE RECORDS SUMMARY | 2024-05-06 09:01 | XMS_ITS | Encounter Summary ---
Author Organization [facility] Address [address] [place] [address] Care Team Providers Care Commercial Sales Specialist Name Role Phone Cornelio Rayo DO Primary Care Provider [phone] Encounter Details Date Type Department Care Team (Late Contact Info) Description 03/25/2022 Prep for Surgery [facility] Surgical Spec [place] [address] [facility] [address] [place] [address] Francheska Camargo, RN Social History Tobacco Use Types Packs/Day [...] Coronavirus/COVID-19? No / Unsure 03/17/2022 11:24 AM QUARRY MANAGER documented as of this encounter Plan of Treatment Upcoming Encounters Date Type Department Care Team (Late Contact Info) Description 06/13/2024 10:15 AM QUARRY MANAGER Office Visit [facility] Oncology and Hematology - [place] [address] [place] [address] Yosef Salmeron MD 2[address] [facility] [address] [place] [address] documented as of this encounter Visit Diagnoses Not on filedocumented in this encounter Care Teams Commercial Sales Specialist Relationship Specialty Start Date End Date Cornelio Rayo DO 6812 [facility] 162 [facility] [address] [place] [address] PCP - General Internal Medicine 03/08/21 09/11/22 documented as of this encounter
--- OUTSIDE RECORDS SUMMARY | 2024-05-06 09:01 | XMS_ITS | Encounter Summary ---
Author Organization [facility] [employer] [facility] Address [address] [place] [address] Care Team Providers Care Goods Layer Name Role Phone Cornelio Rayo DO Primary Care Provider [phone] Encounter Details Date Type Department Care Team (Late Contact Info) Description 06/06/2022 Orders Only [facility] Oncology and Hematology [facility] [address] [place] [address] Yosef Salmeron MD [facility] [employer] [address] [place] [address] Malignant neoplasm of transverse colon; Chronic [...] (Late Contact Info) Description 06/13/2024 10:15 AM RECEIVING TEAM MEMBER Office Visit [facility] Oncology and Hematology [facility] [address] [place] [address] Yosef Salmeron MD [address] [employer] [address] [place] [address] documented as of this encounter Visit Diagnoses Diagnosis Malignant neoplasm of transverse colon Chronic anemia Anemia, unspecified documented in this encounter Care Teams Goods Layer Relationship Specialty Start Date End Date Cornelio Rayo DO 6812 [facility] 162 [facility] [address] [place] [address] PCP - General Internal Medicine 03/08/21 09/11/22 documented as of this encounter
--- OUTSIDE RECORDS SUMMARY | 2024-05-06 09:01 | XMS_ITS | Encounter Summary ---
Author Organization [facility] [employer] [facility] Address [address] [place] [address] Care Team Providers Care Server Systems Administrator Name Role Phone Cornelio Rayo DO Primary Care Provider [phone] Encounter Details Date Type Department Care Team (Late Contact Info) Description 05/23/2022 Orders Only [facility] Oncology and Hematology [facility] [address] [address] Yosef Salmeron MD [facility] [employer] [address] [place] [address] Malignant neoplasm of transverse colon; Chronic [...] (Late Contact Info) Description 06/13/2024 10:15 AM SUPERVISOR PHOTOENGRAVING Office Visit [facility] Oncology and Hematology [facility] [address] [address] Yosef Salmeron MD [address] [employer] [address] [place] [address] documented as of this encounter Visit Diagnoses Diagnosis Malignant neoplasm of transverse colon Chronic anemia Anemia, unspecified documented in this encounter Care Teams Server Systems Administrator Relationship Specialty Start Date End Date Cornelio Rayo DO 6812 [facility] 162 [facility] [address] [place] [address] PCP - General Internal Medicine 03/08/21 09/11/22 documented as of this encounter
--- OUTSIDE RECORDS SUMMARY | 2024-05-06 09:01 | XMS_ITS | Encounter Summary ---
Author Organization [facility] Address [address] [place] [address] Care Team Providers Care District Administrator Name Role Phone Cornelio Rayo Primary Care Provider [phone] Reason for Visit * Auth/Cert Specialty Diagnoses / Procedures Referred By Contac t Referred To Contact Multi Specialty Diagnoses Malignant neoplasm of transverse colon Procedures NH COLONOSCOPY FLX DX W/COLLJ SPEC WHEN PFRMD COLONOSCOPY [address] [address] Referral ID Status Reason Start Date Expiration Date Visits Re quested Visits Authorized [id number] 1 1 Encounter Details Date Type Department Care Team (Late st Contact Info) Description 12/16/2021 11:07 AM CDT Anesthesia Event [address] [place] [address] Aranza Hillman MD [address] [place] [address] Anesthesia Record Procedure Summary Procedure Name Responsible Anesthesiologist Anesthesia Start Time Anesthesia Stop Time COLONOSCOPY (Anus) Aranza Hillman MD 12/16/21 110 7 12/16/21 1130 Events Date Time Event Comment 12/16/2021 1104 1104 AN Equip Check Anesthesia eq uipment and materials checked in accordance with local policy. 1107 In Room This event disp lays the In Room time documented in the Surgical Log. Deleting this event will not remove it from the log but will remove it from the Grid and Graph timeline. 1107 An Start 1107 An Start Data 1107 Pre-Induction Immediate pre- induction anesthetic assessment performed. Vital signs as noted on graphic. 1113 An Induction 1113 Anesthesia Ready 1115 Procedure Start This event d isplays the Procedure Start time documented in the Surgical Log. Deleting this event will not remove it from the log but will remove it from the Grid and Graph timeline. 1124 Procedure Stop This event di splays the Procedure Stop time documented in the Surgical Log. Deleting this event will not remove it from the log but will remove it from the Grid and Graph timeline. 1127 an stop data 1129 Out of Room This event disp lays the Out of Room time documented in the Surgical Log. Deleting this event will not remove it from the log but will remove it from the Grid and Graph timeline. 1130 An Stop Meds Name Total lidocaine (XYLOCAINE) 2% injection 60 mg propofol (DIPRIVAN) 10??mg/mL injection 400 mg lactated ringers infusion 200 mL * Agents Name O2 * Blood No blood administrations on file. Lines, Drains, and Airways Type Details Placement Removal Peripheral IV Pre-Hospital Start: No; Orientation: Left; Location: Wrist; Device: Angiocath; Gauge: 20 gauge; Needle Length: 1 in length; Insertion Attempts: 1; Patient Tolerance: tolerated well 04/15/21 0733 by Patricia Govea RN Peripheral IV Pre-Hospital Start: No; Orientation: Posterior, Right; Location: Wrist; Device: Angiocath; Gauge: 20 gauge; Insertion Attempts: 1; Patient Tolerance: tolerated well 12/16/21 1059 by Blanca Montejo RN 12/16/21 1141 by Yary Mott RN Supraglottic Airway Type: nasal cannula; Confirmation: end tidal CO2, satisfactory chest rise 12/16/21 1104 by Roxy Grewal CRNA 12/16/21 1141 by Yary Mott RN documented in this encounter Social History Tobacco Use Types Packs/Day Years [...] Recorded In the last 10 days, have melly taylor been in contact with someone who was confirmed or suspected to have Coronavirus/COVID-19? No / Unsure 12/16/2021 10:42 AM CDT documented as of this encounter OR Notes * Anesthesia Postprocedure Evaluation - Aranza Hillman MD - 12/16/2021 11:39 AM CDT Post Anesthesia Evaluation Vitals: Vitals Value Taken Time BP 124/85 12/16/21 1136 Temp 36.7 ??C 12/16/21 1130 Resp 21 12/16/21 1136 SpO2 95 % 12/16/21 1136 Pulse 86 12/16/21 1136 Heart Rate Pain Rating: Anesthesia Post Evaluation Patient location during evaluation: PACU Patient participation: patient was able to participate in the post op evaluation Level of consciousness: 0 = alert, responsive, answers simple questions appropriately, able to perform simple tasks Pain management: adequate Airway patency: patent Nausea or Vomiting: none Cardiovascular status: regular rate and rhythm Respiratory status: no respiratory symptoms Hydration status: well hydrated No complications documented. Blanche Hillman MD * Anesthesia Handoff - Roxy Grewal CRNA - 12/16/2021 11:32 AM CDT Post-Anesthetic transfer of care report elements to appropriate post-anesthesia recovery environment completed in accordance with procedure. I completed my handoff to the receiving nurse during which we: 1. Identified the patient 2. Identified the responsible provider 3. Reviewed the pertinent medical history 4. Discussed the surgical course 5. Reviewed intra-op anesthesia management and issues during anesthesia 6. Set expectations for post-procedure period 7. Orders as necessary and appropriate for continuation of care are present in Epic. 8. Allowed opportunity for questions and acknowledgement of understanding. Vital Signs: BP: 121/83 (12/16/2021 11:30 AM) Pulse: 81 (12/16/2021 11:30 AM) Temp: 36.7 ??C (12/16/2021 11:30 AM) Resp: 20 (12/16/2021 11:30 AM) SpO2: 97 % (12/16/2021 11:30 AM) 11:32 AM Roxy Grewal CRNA * Anesthesia Preprocedure Evaluation - Aranza Hillman MD - 12/16/2021 10:51 AM CDT Relevant Problems No relevant active problems Anesthesia Evaluation Patient summary reviewed and Nursing notes reviewed Airway Mallampati: II TM distance: >3 FB Neck ROM: full Dental - normal exam Pulmonary - normal exam breath sounds clear to auscultation ROS comment: Denies SOB, asthma, URI, sleep apnea Cardiovascular - normal exam Exercise tolerance: good (+) hypertension, Rhythm: regular Rate: normal ROS comment: Denies CP, AL, dysrhythmias Neuro/Psych GI/Hepatic/Renal Comments: H/o colon cancer, s/p resection and chemo Occas GERD Obese Endo/Other Abdominal Anesthesia History History of PONV. Comments: No history of anesthetic complications.. Anesthesia Plan ASA Final: 2 MAC Intravenous induction Mask airway maintenance NPO status > 6 hours Anesthetic plan and risks discussed with Patient. Plan discussed with Surgeon, Other, Anesthesiologist and Nurse Wireless Technician. Smoking Compliance Patient did not smoke on day of surgery documented in this encounter Plan of Treatment Upcoming Encounters Date Type Department Care Team (Late st Contact Info) Description 06/13/2024 10:15 AM TRANSPLANTER Office Visit [facility] Oncology and Hematology - [place] [address] [facility] [address] [place] [address] Yosef Salmeron MD [address] [facility] [address] [place] [address] documented as of this encounter Visit Diagnoses Not on filedocumented in this encounter Administered Medications Inactive Administered Medications - up to 3 most recent administrations Medication Order MAR Action Action Date Dose Rate Site lactated ringers infusion IV, at 125 mL/hr, PRE-PROCEDURE CONTINUOUS, Starting on Estefany 12/16/21 at 1100, Until Estefany 12/16/21 at 1411, Routine, Pre-Procedure Continue from Pre-Op 12/16/2021 11:07 AM CDT 125 mL/hr New Bag 12/16/2021 11:00 AM CDT 125 mL/hr lidocaine 2 % (XYLOCAINE) injection IV, INTRA-PROCEDURE PRN, Starting on Estefany 12/16/21 at 1113, Until Estefany 12/16/21 at 1132, Routine, Anesthesia Intra-op Given 12/16/2021 11:13 AM CDT 60 mg propofoL (DIPRIVAN) injection IV, INTRA-PROCEDURE PRN, Starting on Estefany 12/16/21 at 1113, Until Estefany 12/16/21 at 1132, Anesthesia Intra-op Given 12/16/2021 11:22 AM CDT 50 mg Given 12/16/2021 11:20 AM CDT 50 mg Given 12/16/2021 11:18 AM CDT 50 mg documented in this encounter Care Teams District Administrator Relationship Specialty Start Date End Date Cornelio Rayo DO 6812 [facility] 162 [facility] 204 [place] [address] PCP - General Internal Medicine 03/08/21 09/11/22 documented as of this encounter
--- OUTSIDE RECORDS SUMMARY | 2024-05-06 09:01 | XMS_ITS | Encounter Summary ---
Author Organization [facility] Address [address] [facility] Attn: Epic Prelude ADT OLLIE HERRMANN [address] Care Team Providers Care Staff Auditor Name Role Phone Cornelio Rayo DO Primary Care Provider [phone] Encounter Details Date Type Department Care Team (Latest Contact Info) Description 03/17/2022 Travel Social History Tobacco Use Types Packs/Day [...] Coronavirus/COVID-19? No / Unsure 03/17/2022 11:24 AM PACU NURSE documented as of this encounter Plan of Treatment Upcoming Encounters Date Type Department Care Team (Late st Contact Info) Description 06/13/2024 10:15 AM PACU NURSE Office Visit [facility] Oncology and Hematology - [place] [address] [facility] [address] [place] [address] Yosef Salmeron MD [address] [facility] [address] [place] [address] documented as of this encounter Visit Diagnoses Not on filedocumented in this encounter Care Teams Staff Auditor Relationship Specialty Start Date End Date Cornelio Rayo DO [address] [facility] 162 [facility] [address] [place] [address] PCP - General Internal Medicine 03/08/21 09/11/22 documented as of this encounter
--- OUTSIDE RECORDS SUMMARY | 2024-05-06 09:01 | XMS_ITS | Encounter Summary ---
Author Organization [facility] [employer] [facility] Address [address] [place] [address] Care Team Providers Care Rn Office Name Role Phone Cornelio Rayo DO Primary Care Provider [phone] Encounter Details Date Type Department Care Team (Late Contact Info) Description 02/14/2022 Orders Only [facility] Oncology and Hematology [facility] [address] [place] [address] Yosef Salmeron MD [facility] [employer] [address] [place] [address] Malignant neoplasm of transverse colon; Chronic [...] (Late Contact Info) Description 06/13/2024 10:15 AM CASH REGISTER BALANCER Office Visit [facility] Oncology and Hematology [facility] [address] [place] [address] Yosef Salmeron MD [address] [employer] [address] [place] [address] documented as of this encounter Visit Diagnoses Diagnosis Malignant neoplasm of transverse colon Chronic anemia Anemia, unspecified documented in this encounter Care Teams Rn Office Relationship Specialty Start Date End Date Cornelio Rayo DO 6812 [facility] 162 [facility] 204 [place] [address] PCP - General Internal Medicine 03/08/21 09/11/22 documented as of this encounter
--- OUTSIDE RECORDS SUMMARY | 2024-05-06 09:01 | XMS_ITS | Encounter Summary ---
Author Organization [facility] SHERRON[employer]NUMBER [facility] Address [address] [place] [address] Care Team Providers Care Leak Operator Paraffin Plant Name Role Phone RealsuhaJulienian Primary Care Provider Reason for Visit * Reason Comments Follow Up Encounter Details Date Type Department Care Team (Late st Contact Info) Description 01/26/2023 3:45 PM CDT Office Visit [facility] Oncology and Hematology - [place] [address] [facility] [address] [place] [address] Yosef Salmeron MD [address] [facility] [address] [place] [address] Malignant neoplasm of transverse colon [...] Sign Reading Time Taken Comments Blood Pressure 147/100 01/26/2023 3:32 PM CDT Pulse 79 01/26/2023 3:30 PM CDT Temperature 36.6 ??C (97.9 ??F) 01/26/2023 3:30 PM CD T Respiratory Rate 10 01/26/2023 3:30 PM CDT Oxygen Saturation 95% 01/26/2023 3:30 PM CDT Inhaled Oxygen Concentration - - Weight 113.4 kg (250 lb) 01/26/2023 3:30 PM CDT Height - - Body Mass Index 38.58 12/16/2021 10:49 AM CDT documented in this encounter Progress Notes * Yosef Salmeron MD - 01/26/2023 3:55 PM CDT HEMATOLOGY / ONCOLOGY PROGRESS NOTE [...] office for follow-up visit. She has gained 5 pound weight. No melena hematochezia. No diarrhea and constipation. Denies any other new complaints. Review of system Constitutional: denies fevers, sweats, 5 pound weight gain HEENT: denies sinus congestion, hearing or vision [...] 0.7 WBC 6.7 hemoglobin 12.6 platelet 220,000 Assessment: Plan: Patient Active Problem List Diagnosis [...] of disease on my examination. Labs including CEA normal. I will order CT abdomen and pelvis with repeat labs in 4 months. I have recommended regular exercise and weight loss. Anemia. Resolved. Chemotherapy-induced neuropathy. Slowly getting better. Follow-up in 4 months. 01/26/2023 Yosef Salmeron MD documented in this encounter Plan of Treatment Upcoming Encounters Date Type Department Care Team (Late st Contact Info) Description 06/13/2024 10:15 AM BAR SUPERVISOR Office Visit [facility] Oncology and Hematology [facility] [address] [facility] [address] [place] [address] Yosef Salmeron MD [address] [facility] [address] [place] [address] documented as of this encounter Visit Diagnoses Diagnosis Malignant neoplasm of transverse colon- Primary documented in this encounter Care Teams Leak Operator Paraffin Plant Relationship Specialty Start Date End Date Julien Doan DO [address] [facility] [address] [place] [address] PCP - General Internal Medicine 09/12/22 documented as of this encounter
--- OUTSIDE RECORDS SUMMARY | 2024-05-06 09:01 | XMS_ITS | Encounter Summary ---
Author Organization [facility] [employer] [facility] Address [address] [place] [address] Care Team Providers Care Vice President Of Software Engineering Name Role Phone Cornelio Rayo DO Primary Care Provider [phone] Encounter Details Date Type Department Care Team (Late Contact Info) Description 03/28/2022 Orders Only [facility] Oncology and Hematology [facility] [address] [place] [address] Yosef Salmeron MD [address] [facility] [employer] [address] [place] [address] Malignant neoplasm of transverse colon; [...] Coronavirus/COVID-19? No / Unsure 03/17/2022 11:24 AM BAILER OPERATORS SUPERVISOR documented as of this encounter Plan of Treatment Upcoming Encounters Date Type Department Care Team (Late Contact Info) Description 06/13/2024 10:15 AM BAILER OPERATORS SUPERVISOR Office Visit [facility] Oncology and Hematology [facility] [address] [place] [address] Yosef Salmeron MD [address] [facility] [address] [place] [address] documented as of this encounter Visit Diagnoses Diagnosis Malignant neoplasm of transverse colon Chronic anemia Anemia, unspecified documented in this encounter Care Teams Vice President Of Software Engineering Relationship Specialty Start Date End Date Cornelio Rayo DO [address] [facility] [address] [place] [address] PCP - General Internal Medicine 03/08/21 09/11/22 documented as of this encounter
--- OUTSIDE RECORDS SUMMARY | 2024-05-06 09:01 | XMS_ITS | Encounter Summary ---
Author Organization [facility] [employer] [facility] Address [address] [place] [address] Care Team Providers Care Baker Operator Automatic Name Role Phone Cornelio Rayo DO Primary Care Provider [phone] Encounter Details Date Type Department Care Team (Late Contact Info) Description 08/29/[address] [facility] Oncology and Hematology [facility] [address] [place] [address] Yosef Salmeron MD [facility] [employer] [address] [place] [address] Malignant neoplasm of transverse colon; Chronic [...] (Late Contact Info) Description 06/13/2024 10:15 AM HOSPITALITY JOB TITLES Office Visit [facility] Oncology and Hematology [facility] [address] [place] [address] Yosef Salmeron MD [address] [facility] [address] [place] [address] documented as of this encounter Visit Diagnoses Diagnosis Malignant neoplasm of transverse colon Chronic anemia Anemia, unspecified documented in this encounter Care Teams Baker Operator Automatic Relationship Specialty Start Date End Date Cornelio Rayo DO 6812 [facility] 162 [facility] 204 [place] [address] PCP - General Internal Medicine 03/08/21 09/11/22 documented as of this encounter
--- OUTSIDE RECORDS SUMMARY | 2024-05-06 09:01 | XMS_ITS | Encounter Summary ---
Author Organization [facility] [employer] [facility] Address [address] [place] [address] Care Team Providers Care Room Clerk Name Role Phone Cornelio Rayo DO Primary Care Provider [phone] Encounter Details Date Type Department Care Team (Late Contact Info) Description 02/28/2022 Orders Only [facility] Oncology and Hematology [facility] [address] [place] [address] Yosef Salmeron MD [facility] [employer] [address] [place] [address] Malignant neoplasm of transverse colon; Chronic [...] (Late Contact Info) Description 06/13/2024 10:15 AM COSMETICS DEMONSTRATOR Office Visit [facility] Oncology and Hematology [facility] [address] [place] [address] Yosef Salmeron MD [address] [employer] [address] [place] [address] documented as of this encounter Visit Diagnoses Diagnosis Malignant neoplasm of transverse colon Chronic anemia Anemia, unspecified documented in this encounter Care Teams Room Clerk Relationship Specialty Start Date End Date Cornelio Rayo DO 6812 [facility] 162 [facility] 204 [place] [address] PCP - General Internal Medicine 03/08/21 09/11/22 documented as of this encounter
--- OUTSIDE RECORDS SUMMARY | 2024-05-06 09:01 | XMS_ITS | Encounter Summary ---
Author Organization [facility] Address [address] [place] [address] Care Team Providers Care Hot Billet Shear Operator Name Role Phone Cornelio Rayo DO Primary Care Provider [phone] Encounter Details Date Type Department Care Team (Late Contact Info) Description 12/16/2021 Orders Only [facility] Oncology and Hematology [facility] [address] [place] [address] Yosef Salmeron MD [address] [facility] [employer] [address] [place] [address] Malignant neoplasm of transverse colon; [...] (Late Contact Info) Description 06/13/2024 10:15 AM PEER TUTOR Office Visit [facility] Oncology and Hematology [facility] [address] [place] [address] Yosef Salmeron MD [address] [facility] [address] [place] [address] documented as of this encounter Visit Diagnoses Diagnosis Malignant neoplasm of transverse colon Chronic anemia Anemia, unspecified documented in this encounter Care Teams Hot Billet Shear Operator Relationship Specialty Start Date End Date Cornelio Rayo DO [address] [facility] [address] [place] [address] PCP - General Internal Medicine 03/08/21 09/11/22 documented as of this encounter
--- OUTSIDE RECORDS SUMMARY | 2024-05-06 09:01 | XMS_ITS | Encounter Summary ---
Author Organization [facility] [employer] [facility] Address [address] [place] [address] Care Team Providers Care Floor Coverings Salesperson Name Role Phone Cornelio Rayo DO Primary Care Provider [phone] Encounter Details Date Type Department Care Team (Late Contact Info) Description 05/09/2022 Orders Only [facility] Oncology and Hematology [facility] [address] [place] [address] Yosef Salmeron MD [facility] [employer] [address] [place] [address] Malignant neoplasm of transverse colon; Chronic [...] st Contact Info) Description 06/13/2024 10:15 AM BUILDING RENTAL MANAGER Office Visit [facility] Oncology and Hematology [facility] [address] [place] [address] Yosef Salmeron MD [address] [employer] [address] [place] [address] documented as of this encounter Visit Diagnoses Diagnosis Malignant neoplasm of transverse colon Chronic anemia Anemia, unspecified documented in this encounter Care Teams Floor Coverings Salesperson Relationship Specialty Start Date End Date Cornelio Rayo DO 6812 [facility] 162 [facility] 204 [place] [address] PCP - General Internal Medicine 03/08/21 09/11/22 documented as of this encounter
--- OUTSIDE RECORDS SUMMARY | 2024-05-06 09:01 | XMS_ITS | Encounter Summary ---
Author Organization [facility] [employer] [facility] Address [address] [place] [address] Care Team Providers Care Stringed Instrument Tuner Name Role Phone PatrickJulien guerra Primary Care Provider Encounter Details Date Type Department Care Team (Late Contact Info) Description 01/24/2023 Orders Only [facility] Oncology and Hematology [place] [address] [place] [address] Yosef Salmeron MD [facility] [employer] [address] [place] [address] Social History Tobacco Use Types Packs/Day [...] st Contact Info) Description 06/13/2024 10:15 AM PATIENT APPOINTMENT COORDINATOR Office Visit [facility] Oncology and Hematology - [place] [address] [place] [address] Yosef Salmeron MD [address] [employer] [address] [place] [address] documented as of this encounter Procedures Procedure Name Priority Date/Time Associated Diagnosis Comments CBC WITH DIFFERENTIAL Routine 01/24/2023 1:57 PM CDT documented in this encounter Results * CBC WITH DIFFERENTIAL (01/24/2023 1:57 PM CDT) Blood Yosef Salmeron MD HEMATOLOGY ORDERABLE S documented in this encounter Visit Diagnoses Not on filedocumented in this encounter Care Teams Stringed Instrument Tuner Relationship Specialty Start Date End Date Julien Doan DO 1181 [facility] 157 [place] [id number] PCP - General Internal Medicine 09/12/22 documented as of this encounter
--- OUTSIDE RECORDS SUMMARY | 2024-05-06 09:01 | XMS_ITS | Encounter Summary ---
Author Organization [facility] [employer] [facility] Address [address] [place] [address] Care Team Providers Care Branch Coordinator Name Role Phone Cornelio Rayo DO Primary Care Provider [phone] Encounter Details Date Type Department Care Team ([facility] Contact Info) Description 03/16/2022 Orders Only [facility] Oncology and Hematology [facility] [address] [place] [address] Mayte Samson RN Malignant neoplasm of transverse colon Social [...] Coronavirus/COVID-19? No / Unsure 03/17/2022 11:24 AM SEMICONDUCTOR PACKAGES SEALER documented as of this encounter Plan of Treatment Upcoming Encounters Date Type Department Care Team (Late Contact Info) Description 06/13/2024 10:15 AM SEMICONDUCTOR PACKAGES SEALER Office Visit [facility] Oncology and Hematology [facility] [address] [place] [address] Yosef Salmeron MD [address] [facility] [address] [place] [address] documented as of this encounter Visit Diagnoses Diagnosis Malignant neoplasm of transverse colon documented in this encounter Care Teams Branch Coordinator Relationship Specialty Start Date End Date Cornelio Rayo DO 6812 [facility] 162 [facility] 204 [place] [address] PCP - General Internal Medicine 03/08/21 09/11/22 documented as of this encounter
--- OUTSIDE RECORDS SUMMARY | 2024-05-06 09:01 | XMS_ITS | Encounter Summary ---
Author Organization [facility] [employer] [facility] Address [address] [place] [address] Care Team Providers Care Saddle Lining Stitcher Name Role Phone Cornelio Rayo Primary Care Provider [phone] Reason for Referral * CT Scan (Routine) - Closed Specialty Diagnoses / Procedures Referred By Sandy t Referred To Contact Diagnoses Malignant neoplasm of transverse colon Procedures CT ABDOMEN PELVIS W CONTRAST Yosef Salmeron MD [address] [employer] [address] [place] [address] [place] [address] Referral ID Status Reason Start Date Expiration Date V isits Requested Visits Authorized [id number] Closed [facility] CTS 08/11/2022 10/09/2022 1 1 OMER CARE VOICE CONSULTANT Reason for Visit * Reason Comments Follow Up Cancer Encounter Details Date Type Department Care Team (Late st Contact Info) Description 06/16/2022 9:15 AM CUSTOMER CARE VOICE CONSULTANT Office Visit [facility] Oncology and Hematology [address] [facility] [address] [place] [address] Yosef Salmeron MD [address] [employer] [address] [place] [address] Malignant neoplasm of transverse colon [...] Coronavirus/COVID-19? No / Unsure 06/16/2022 8:54 AM CUSTOMER CARE VOICE CONSULTANT documented as of this encounter Last Filed Vital Signs Vital Sign Reading Time Taken Comments Blood Pressure 135/81 06/16/2022 9:16 AM CUSTOMER CARE VOICE CONSULTANT Pulse 75 06/16/2022 9:13 AM CUSTOMER CARE VOICE CONSULTANT Temperature 36.4 ??C (97.6 ??F) 06/16/2022 9:13 AM CS T Respiratory Rate 8 06/16/2022 9:13 AM CUSTOMER CARE VOICE CONSULTANT Oxygen Saturation 100% 06/16/2022 9:13 AM CUSTOMER CARE VOICE CONSULTANT Inhaled Oxygen Concentration - - Weight 105.9 kg (233 lb 6.4 oz) 06/16/2022 9:13 AM CUSTOMER CARE VOICE CONSULTANT Height - - Body Mass Index 36.02 12/16/2021 10:49 AM CDT documented in this encounter Progress Notes * Yosef Salmeron MD - 06/16/2022 10:19 AM CST HEMATOLOGY / ONCOLOGY PROGRESS NOTE Patient [...] to the office for follow-up visit. She is feeling much better. Neuropathy slowly improving. She has gained 6 pound weight. Denies any other new complaint. Review of system Constitutional: denies fevers, sweats, improvement in tiredness and fatigue with 6 pound weight gain HEENT: denies sinus congestion, [...] 5.8 hemoglobin 12 platelet 182,000 CEA 2.0 Assessment: Plan: Patient Active Problem List Diagnosis [...] showed no evidence of relapse of disease. Patient is feeling much better and more energetic. Labs stable including CEA level. Port has been removed. We will order CT abdomen pelvis in 3 months with follow-up in 3 months. Anemia. Hemoglobin is stable. She has discontinued taking oral iron and vitamin B12. Leukopenia. Resolved. Therapy to the neuropathy. Significant improvement noted. Follow-up in 3 months. TOBACCO COUNSELING She is not a tobacco user. 06/16/2022 Yosef Salmeron MD OMER CARE VOICE CONSULTANT documented in this encounter Plan of Treatment Upcoming Encounters Date Type Department Care Team (Late st Contact Info) Description 06/13/2024 10:15 AM CUSTOMER CARE VOICE CONSULTANT Office Visit [facility] Oncology and Hematology - [place] [address] [facility] [address] [place] [address] Yosef Salmeron MD [address] [facility] [address] [place] [address] Scheduled Orders Name Type Priority Associated Diagnoses Orde r Schedule CBC WITH DIFFERENTIAL Lab Stat Malignant neoplasm of transverse colon Expected: 09/08/2022, Expires: 06/16/2023 CT ABDOMEN PELVIS W CONTRAST Imaging Routine Malignant neoplasm of transverse colon Expected: 09/13/2022, Expires: 06/16/2023 documented as of this encounter Visit Diagnoses Diagnosis Malignant neoplasm of transverse colon- Primary documented in this encounter Care Teams Saddle Lining Stitcher Relationship Specialty Start Date End Date Cornelio Rayo DO [facility] 204 [place] [address] PCP - General Internal Medicine 03/08/21 09/11/22 documented as of this encounter
--- OUTSIDE RECORDS SUMMARY | 2024-05-06 09:01 | XMS_ITS | Encounter Summary ---
Author Organization [facility] [employer] Address [address] [place] [address] Care Team Providers Care Dexigraph Operator Name Role Phone PatrickJulien guerra Primary Care Provider Encounter Details Date Type Department Care Team (Late Contact Info) Description 01/25/2023 Orders Only [facility] Oncology [facility] Hematology [facility] [address] [place] [address] Yosef Salmeron MD [facility] [employer] [address] [place] [address] Social History Tobacco Use Types Packs/Day [...] st Contact Info) Description 06/13/2024 10:15 AM CONSTRUCTION FRAMER Office Visit [facility] Oncology and Hematology [facility] [address] [place] [address] Yosef Salmeron MD [address] [employer] [address] [place] [address] documented as of this encounter Procedures Procedure Name Priority Date/Time Associated Diagnosis Comments COMPREHENSIVE METABOLIC PANEL Routine 01/24/2023 8:38 AM CDT documented in this encounter Results * COMPREHENSIVE METABOLIC PANEL (01/24/2023 8:38 AM CDT) Blood Yosef Salmeron MD CHEMISTRY ORDERABLES documented in this encounter Visit Diagnoses Not on filedocumented in this encounter Care Teams Dexigraph Operator Relationship Specialty Start Date End Date Julien Doan DO [address] [address] PCP - General Internal Medicine 09/12/22 documented as of this encounter
--- OUTSIDE RECORDS SUMMARY | 2024-05-06 09:01 | XMS_ITS | Encounter Summary ---
Author Organization [facility] [email or web address] [facility] Address [address] [place] [address] Care Team Providers Care Mobility Developer Name Role Phone Cornelio Rayo DO Primary Care Provider [phone] Encounter Details Date Type Department Care Team (Late Contact Info) Description 01/03/2022 Orders Only [facility] Oncology and Hematology [facility] [address] [place] [address] Yosef Salmeron MD [address] [facility] [employer] [address] [place] [address] Malignant neoplasm of transverse colon; [...] (Late Contact Info) Description 06/13/2024 10:15 AM LITIGATION COORDINATOR Office Visit [facility] Oncology and Hematology [facility] [address] [place] [address] Yosef Salmeron MD [address] [facility] [address] [place] [address] documented as of this encounter Visit Diagnoses Diagnosis Malignant neoplasm of transverse colon Chronic anemia Anemia, unspecified documented in this encounter Care Teams Mobility Developer Relationship Specialty Start Date End Date Cornelio Rayo DO [address]12 [facility] [address] [place] [address] PCP - General Internal Medicine 03/08/21 09/11/22 documented as of this encounter
--- OUTSIDE RECORDS SUMMARY | 2024-05-06 09:01 | XMS_ITS | Encounter Summary ---
Author Organization [facility] [employer] [facility] Address [address] [place] [address] Care Team Providers Care Scalping Machine Operator Name Role Phone Cornelio Rayo DO Primary Care Provider [phone] Encounter Details Date Type Department Care Team (Late Contact Info) Description 08/01/2022 Orders Only [facility] Oncology and Hematology [facility] [address] [place] [address] Yosef Salmeron MD [facility] [employer] [address] [place] [address] Malignant neoplasm of transverse colon; Chronic [...] (Late Contact Info) Description 06/13/2024 10:15 AM STORE OPERATIONS ASSOCIATE Office Visit [facility] Oncology and Hematology [facility] [address] [place] [address] Yosef Salmeron MD [address] [employer] [address] [place] [address] documented as of this encounter Visit Diagnoses Diagnosis Malignant neoplasm of transverse colon Chronic anemia Anemia, unspecified documented in this encounter Care Teams Scalping Machine Operator Relationship Specialty Start Date End Date Cornelio Rayo DO 68[address] [facility] 162 [facility] 204 [place] [address] PCP - General Internal Medicine 03/08/21 09/11/22 documented as of this encounter
--- OUTSIDE RECORDS SUMMARY | 2024-05-06 09:01 | XMS_ITS | Encounter Summary ---
Author Organization [facility] [employer] [facility] Address [address] [place] [address] Care Team Providers Care Salesperson Furniture Name Role Phone Cornelio Rayo DO Primary Care Provider [phone] Encounter Details Date Type Department Care Team (Late Contact Info) Description 04/25/[address] [facility] Oncology and Hematology [facility] [address] [place] [address] Yosef Salmeron MD [facility] [employer] [address] [place] [address] Malignant neoplasm of transverse colon; Chronic [...] (Late Contact Info) Description 06/13/2024 10:15 AM SALT WASHER HARVESTING STATION Office Visit [facility] Oncology and Hematology [facility] [address] [place] [address] Yosef Salmeron MD [address] [employer] [address] [place] [address] documented as of this encounter Visit Diagnoses Diagnosis Malignant neoplasm of transverse colon Chronic anemia Anemia, unspecified documented in this encounter Care Teams Salesperson Furniture Relationship Specialty Start Date End Date Cornelio Rayo DO 6812 [facility] 162 [facility] 204 [place] [address] PCP - General Internal Medicine 03/08/21 09/11/22 documented as of this encounter
--- OUTSIDE RECORDS SUMMARY | 2024-05-06 09:01 | XMS_ITS | Encounter Summary ---
Author Organization [facility] [employer] [facility] Address [address] [place] [address] Care Team Providers Care Community Case Manager Name Role Phone Cornelio Rayo DO Primary Care Provider [phone] Encounter Details Date Type Department Care Team (Late Contact Info) Description 07/04/2022 Orders Only [facility] Oncology and Hematology [facility] [address] [place] [address] Yosef Salmeron MD 2[address] [facility] [employer] [address] [place] [address] Malignant neoplasm of transverse colon; [...] Coronavirus/COVID-19? No / Unsure 06/16/2022 8:54 AM VEGETABLE CANNER documented as of this encounter Plan of Treatment Upcoming Encounters Date Type Department Care Team (Late Contact Info) Description 06/13/2024 10:15 AM VEGETABLE CANNER Office Visit [facility] Oncology and Hematology [facility] [address] [place] [address] Yosef Salmeron MD [address] [facility] [address] [place] [address] documented as of this encounter Visit Diagnoses Diagnosis Malignant neoplasm of transverse colon Chronic anemia Anemia, unspecified documented in this encounter Care Teams Community Case Manager Relationship Specialty Start Date End Date Cornelio Rayo DO [address] [facility] [address] [place] [address] PCP - General Internal Medicine 03/08/21 09/11/22 documented as of this encounter
--- OUTSIDE RECORDS SUMMARY | 2024-05-06 09:02 | XMS_ITS | Encounter Summary ---
Author Organization [facility] Address [address] [place] [address] Care Team Providers Care Mental Measurements Teacher Name Role Phone Cornelio Rayo Primary Care Provider [phone] Reason for Visit * Auth/Cert Specialty Diagnoses / Procedures Referred By Contac t Referred To Contact Multi Specialty Diagnoses Malignant neoplasm of transverse colon Procedures [place] COLONOSCOPY FLX DX W/COLLJ SPEC WHEN PFRMD COLONOSCOPY [address] [place] [address] Referral ID Status Reason Start Date Expiration Date Visits Re quested Visits Authorized [id number] 1 1 Encounter Details Date Type Department Care Team (Late st Contact Info) Description 12/16/2021 11:40 AM CDT - 12/16/2021 12:20 PM CDT Surgery [address] [place] [address] Vikas Fung MD [address] [facility] [address] [place] [address] COLONOSCOPY Surgery Details Date/Time Status Location OR Service Patient Class Case Class Case Type Trauma Case? 12/16/2021 11:40 AM Posted [facility] OR 03 Gastroenterology Outpatient Elective No Panel 1 Procedure LRB Anes Op Region Wound Class Comments COLONOSCOPY N/A Monitored Anesthetic Care Anus Surgeon Surgeon Role Service Panel Vikas Fung MD Primary Gastroenterology 1 Case Notes 12/09 - MOVED TO MD DIRECT PER - SP ( SEE REFERRAL) documented in this encounter Social History Tobacco [...] AM CDT documented as of this encounter Last Filed Vital Signs Vital Sign Reading Time Taken Comments Blood Pressure 122/87 12/16/2021 11:41 AM CDT Pulse 77 12/16/2021 11:41 AM CDT Temperature 36.7 ??C (98.1 ??F) 12/16/2021 1 1:30 AM CDT Respiratory Rate 15 12/16/2021 11:4 1 AM CDT Oxygen Saturation 96% 12/16/2021 11: 41 AM CDT Inhaled Oxygen Concentration - - Weight 111.5 kg (245 lb 12.8 oz) 2021 10:49 AM CDT Height 171.5 cm (5' 7.5 ) 12/16/2021 10 :49 AM CDT Body Mass Index 37.93 12/16/2021 10:49 AM CDT documented in this encounter Discharge Instructions * Discharge Instructions* Yary Mott RN - 12/16/2021 11:43 AM CDT If you should experience: Severe abdominal pain, chest pain, fever, chills, shortness of breath, inability to swallow, abnormal bleeding or any other concerns following your procedure. Call your physician or come to the Emergency Department. Please follow these instructions: 1. During your procedure you may have received sedation. You should rest at home for the remainder of the day. You should NOT drive or perform any activities that require a completely alert mind during this recovery period. Alcohol should NOT be used for at least 24 hours. 2. Following your colonoscopy you may expect your bowel habits to return to normal in 2-3 days. Once you are fully alert you may have a light meal and can progress to your usual diet, unless otherwise instructed by your physician. 3. This includes your current and historical medications prescribed by your physician (s). Continue your current medications and any newly prescribed during this visit. If you have questions, please call the physician who prescribed the medication. documented in this encounter Medications at Time of Discharge Medication Sig Dispensed Refills Start Date End Date omeprazole (PriLOSEC) 10 mg Capsule, Delayed Release(E.C.) Take 20 mg by mouth daily. documented as of this encounter H&P Notes * Vikas Fung MD - 12/16/2021 11:11 AM CDT PRE PROCEDURE EVALUATION - Colonoscopy DATE: 12/16/2021 HPI: This is a 51 y.o. female patient scheduled for Colonoscopy for previous colon cancer. Patient Active Problem List Diagnosis Date Noted ??? Malignant neoplasm of transverse colon ??? Colonic mass ??? Liver lesion ??? Acute colitis ??? Abdominal pain 03/08/2021 ??? Hypokalemia 03/08/2021 Past Medical History: Diagnosis Date ??? Difficult intravenous access never had to use US- ??? Malignant tumor of colon ??? Post-operative nausea and vomiting Past Surgical History: Procedure Laterality Date ??? HX SECTION ??? HX DILATION AND CURETTAGE ??? HX TUBAL LIGATION ??? HX VENOUS ACCESS DEVICE N/A 04/15/2021 CENTRAL VENOUS ACCESS INSERTION performed by Katelyn Jack MD at [facility] OR [facility] ??? [place] COLONOSCOPY FLX DX W/COLLJ SPEC WHEN PFRMD N/A 03/10/2021 COLONOSCOPY performed by Vikas Fung MD at [facility] GI [facility] ??? [place] IV INJ TO TEST BLOOD FLOW IN FLAP/GRAFT 03/26/2021 IV INJECTION OF AGENT FOR VASCULAR FLOW IN FLAP OR GRAFT performed by Katelyn Jack MD at [facility] ??? [place] LAP, SURG MOBIL SPLENIC FL DUR PTL COLECTOMY N/A 03/26/2021 SPLENIC FLEXURE MOBILIZATION DAVINCI XI performed by Katelyn Jack MD at [facility] ? ? [place] LAP,SURG,COLECTOMY,W/END COLOST & CLOSUR N/A 03/26/2021 DAVINCI SPLENIC FLEXURE RESECTION WITH PRIMARY ANASTOMOSIS performed by Katelyn Jack MD at [facility] OR MAIN Medications Prior to Admission Medication Sig Dispense Refill Last Dose ??? amLODIPine (NORVASC) 2.5 mg tablet Take 2.5 mg by mouth daily. 12/16/2021 at Unknown time ??? omeprazole (PriLOSEC) 10 mg Capsule, Delayed Release(E.C.) Take 10 mg by mouth daily. Past Weekat Unknown time ??? PEG-Electrolyte Soln (NULYTELY) 420 g Recon Soln TAKE 4,000 BY MOUTH ONE TIME ONLY FOR 1 DOSE, FOLLOW PRESCRIBING PHYSICIAN S INSTRUCTIONS ONLY (THESE WERE SENT BY MAIL OR E-MAIL) ??? lidocaine-prilocaine (EMLA) 2.5-2.5 % Cream Apply to affected area see administration instructions. 30 Gram 1 ??? ondansetron (ZOFRAN ODT) 4 mg Tablet, Rapid Dissolve Take 1 Tablet by mouth every 6 hours as needed for Nausea/Emesis. Dissolve tablet on top of tongue, then swallow with saliva. 24 Tablet 0 Allergies Allergen Reactions ??? Chlorhexidine Hives ??? Sulfa (Sulfonamide Antibiotics) Swelling ??? Unclassified Drug Nausea and Vomiting Pt reports does not tolerate anesthesia and pain medications well. ??? Codeine Nausea and Vomiting ??? Meperidine Nausea and Vomiting Social History Tobacco Use ??? Smoking status: Former Smoker Types: Cigarettes Quit date: 2000 Years since quittin.6 ??? Smokeless tobacco: Never Used Substance Use Topics ??? Alcohol use: No Family History Problem Relation Name Age of Onset ??? Colon Cancer Neg Hx Head: atraumatic, Normocephalic, without obvious abnormality Lungs: clear to auscultation bilaterally, normal respiratory effort Airway: No apparent abnormality Heart: normal rate, regular rhythm, normal S1, S2, no murmurs, rubs, clicks or gallops Abdomen: Soft, non-tender. Bowel sounds normal. No masses, no organomegaly. Neurologic: Mental status: Alert, oriented, thought content appropriate ASA Classification: Per anesthesia Informed Consent: The patient was informed of the indications for the procedure, the risks/benefits and the alternatives, and agreed to proceed. In particular, the patient was informed of the risk of perforation/(1:1000), medication side effect, infection, a missed lesion, or incomplete examination. In the case of dilatation, the patient was informed of the risk of perforation (1 to 5%). There was nothing onhistory or physical examination precluding the procedure. IMPRESSION & PLAN: Indications for procedure as noted in HPI. Will proceed with the above mentioned procedure(s) as scheduled. Vikas Fung MD documented in this encounter Procedure Notes * Vikas Fung MD - 12/16/2021 11:28 AM CDTAssociated Order(s): COLONOSCOPY REPORT [facility] Endoscopy Patient Name: Mary Earl Procedure Date: [...] Addenda: 0 Procedure Date: 12/16/2021 10:56:46 AM [id number] [address] * Elham Lim RN - 12/09/2021 9:22 AM CDT [facility] GI Nurse Assessment Patient: Mary Earl : 1970 Endoscopist: Surgeon(s): Vikas Fung MD Upcoming Procedure: Procedure to be Performed: Procedure(s): COLONOSCOPY Procedure Date/Time: 12/16/2021 at 1140 Diagnosis/Indication for procedure: Pre-Op Diagnosis Codes: * Malignant neoplasm of transverse colon [C18.4] Location: [facility] Referring Physician: Cornelio Rayo Patient's BMI: Body mass index is 38.37 kg/m??. Is patient a candidate for offsite location? yes Medications Type of prep given: CSP Anticoagulants: no Relevant prior procedure/pathology: Procedure: COLON Physician: DONNELL Date: 03/10/21 Location: Last Pathology: FINAL DIAGNOSIS Large intestine, transverse colon stricture, endoscopic biopsy: - Adenocarcinoma - MMR IHC in process Past Surgical History: Past Surgical History: Procedure Laterality Date ??? HX SECTION ??? HX DILATION AND CURETTAGE ??? HX TUBAL LIGATION ??? HX VENOUS ACCESS DEVICE N/A 04/15/2021 CENTRAL VENOUS ACCESS INSERTION performed by Katelyn Jack MD at [facility] ??? [place] COLONOSCOPY FLX DX W/COLLJ SPEC WHEN PFRMD N/A 03/10/2021 COLONOSCOPY performed by Vikas Fung MD at [facility] GI [facility] ??? [place] IV INJ TO TEST BLOOD FLOW IN FLAP/GRAFT 03/26/2021 IV INJECTION OF AGENT FOR VASCULAR FLOW IN FLAP OR GRAFT performed by Katelyn Jack MD at [facility] ??? [place] LAP, SURG MOBIL SPLENIC FL DUR PTL COLECTOMY N/A 03/26/2021 SPLENIC FLEXURE MOBILIZATION DAVINCI XI performed by Katelyn Jack MD at [facility] ? ? [place] LAP,SURG,COLECTOMY,W/END COLOST & CLOSUR N/A 03/26/2021 DAVINCI SPLENIC FLEXURE RESECTION WITH PRIMARY ANASTOMOSIS performed by Katelyn Jack MD at [facility] Past Medical History: Past Medical History: Diagnosis Date ??? Difficult intravenous access never had to use US- ??? Malignant tumor of colon ??? Post-operative nausea and vomiting No current facility-administered medications on file prior to encounter. Current Outpatient Medications on File Prior to Encounter Medication Sig Dispense Refill ??? amLODIPine (NORVASC) 2.5 mg tablet Take 2.5 mg by mouth daily. ??? omeprazole (PriLOSEC) 10 mg Capsule, Delayed Release(E.C.) Take 10 mg by mouth daily. ??? lidocaine-prilocaine (EMLA) 2.5-2.5 % Cream Apply to affected area see administration instructions. 30 Gram 1 ??? ondansetron (ZOFRAN ODT) 4 mg Tablet, Rapid Dissolve Take 1 Tablet by mouth every 6 hours as needed for Nausea/Emesis. Dissolve tablet on top of tongue, then swallow with saliva. 24 Tablet 0 documented in this encounter OR Notes * Blanca-OP - Elham Lim RN - 12/09/2021 9:20 AM CDT Routine Pre-Anesthesia Protocol for GI Lab Procedures [facility] Approved by: [facility] - Medical Executive Committee Approval Date: 07/22/2021 ORDERS ARE ENTERED ???PER PROTOCOL?? Enter the protocol in the patient???s electronic health record using [employer]: .[email or web address] Nursing Orders: Monitoring ??? Obtain and record vital signs on admission to [facility] ??? Continuous vital signs (Non-invasive blood pressure, pulse oximetry and cardiac monitoring) for: o All inpatients o All patients currently taking beta-blockers o Patients diagnosed with/or at risk for sleep apnea (e.g., STOP-BANG greater than or equal to 3) Glycemic Control ??? POC glucose for diabetics ??? Notify provider for any POC glucose or serum glucose less than 70 mg/dL. If POC Glucose resultsare critical, do not delay treatment. If appropriate, may confirm POC with: Nursing Only [id number] (this lab can be obtained at no cost to the patient when confirming a critical high or Critical low POC glucose. See hypoglycemia protocol for additional orders if needed: DONOVAN LEWIS Adult Perianesthesia HYPOglycemia Protocol ??? Notify any provider for any POC glucose or serum glucose greater than 180 mg/dL. ??? When receiving report on an inpatient, confirm if patient is receiving dextrose containing fluids to prevent hypoglycemia. Communicate with the anesthesiologist and request glucose containing fluids be continued or added to intraoperative/intraprocedure fluids. ??? POC glucose within 30 minutes of discharge or transfer to another unit (the time-based intra-procedure POC check may be deferred during short procedures at the discretion of the provider. Laboratory Orders: ??? POC Urine Test (POC7) (if unable to obtain urine, may obtain serum [id number]) All patients with potential for childbearing (menarche to menopause) Medication Orders: Intravenous Line ??? Place #20 gauge IV in non-dominant, non-operative or not otherwise excluded upper extremity unless otherwise ordered by anesthesiologist. ??? Contact responsible anesthesiologist if recommending use of a #22 gauge IV ??? For patients with difficult IV access notify anesthesiologist. ??? For patients with difficult IV access and an implanted infusion port, access the port in accordance with nursing policies. ??? Local Anesthetic to use to initiate IV line: Lidocaine 2% 0.3mL intradermal ONE TIME to numb area of IV catheter insertion PRN. ??? IV Fluid- Adult patients (age 18 years or greater): o Lactated ringer's solution to infuse at 125mL/hr, may discontinue upon discharge from procedure area o If patient is found to have a serum creatinine >2 or history of renal failure, RN may change to NS at 10ml/hr documented in this encounter Plan of Treatment Upcoming Encounters Date Type Department Care Team (Late st Contact Info) Description 06/13/2024 10:15 AM FUSE COILER Office Visit [facility] Oncology and Hematology - [place] [address] [facility] [address] [place] [address] Yosef Salmeron MD [address] [facility] [address] [place] [address] documented as of this encounter Procedures Procedure Name Priority Date/Time Associated Diagnosis Comments [place] COLONOSCOPY FLX DX W/COLLJ SPEC WHEN PFRMD 12/16/2021 11:40 AM CDT Malignant neoplasm of transverse colon Case Notes 12/09 - MOVED TO MD DIRECT PER - SP ( SEE REFERRAL) COLONOSCOPY REPORT 12/16/2021 11 :29 AM CDT documented in this encounter Results * COLONOSCOPY REPORT (12/16/2021 11:29 AM CDT) Narrative Procedure Note Vikas Fung MD - 12/16/2021 11:28 AM CDT [facility] End[facility] [place] [facility] Patient Name: Mary Earl Procedure Date: [...] Addenda: 0 Procedure Date: 12/16/2021 10:56:[id number] [place] [address] Vikas Fung MD GI PROCEDURE ORDERAB LES documented in this encounter Visit Diagnoses Diagnosis Malignant neoplasm of transverse colon documented in this encounter Administered Medications Inactive Administered Medications - up to 3 most recent administrations Medication Order MAR Action Action Date Dose Rate Site lactated ringers infusion IV, at 125 mL/hr, PRE-PROCEDURE CONTINUOUS, Starting on Estefany 12/16/21 at 1100, Until Estefany 12/16/21 at 1411, Routine, Pre-Procedure Continue from Pre-Op 12/16/2021 11:07 AM CDT 125 mL/hr New Bag 12/16/2021 11:00 AM CDT 125 mL/hr documented in this encounter Active and Recently Administered Medications Times are shown in CDT. Continuous Medication Order 12/14/2021 12/15/2021 12/16/2021 lactated ringers infusion IV, at 125 mL/hr, PRE-PROCEDURE CONTINUOUS, Starting on Estefany 12/16/21 at 1100, Until Estefany 12/16/21 at 1411, Routine, Pre-Procedure 1100 (New Bag - Prov ider: Blanca Montejo, MAXX)1107 (Continue from Pre-Op - Provider: Roxy Grewal CRNA)1123 (Fluid Volume - Provider: Roxy Grewal CRNA)1141 (Stopped - Provider: Yary Mott RN) documented in this encounter Care Teams Mental Measurements Teacher Relationship Specialty Start Date End Date Cornelio Rayo DO [address] [facility] [address] [facility] [address] [place] [address] PCP - General Internal Medicine 03/08/21 09/11/22 documented as of this encounter
--- OUTSIDE RECORDS SUMMARY | 2024-05-06 09:02 | XMS_ITS | Encounter Summary ---
Author Organization [facility] [employer] [facility] Address [address] [place] [address] Care Team Providers Care Supervisor Lace Tearing Name Role Phone Cornelio Rayo DO Primary Care Provider [phone] Encounter Details Date Type Department Care Team (Late Contact Info) Description 11/08/2021 Orders Only [facility] Oncology and Hematology [facility] [address] [place] [address] Yosef Salmeron MD [address] [facility] [address] [place] [address] Malignant neoplasm of transverse colon; [...] suspected to have Coronavirus/COVID-19? No / Unsure 10/19/2021 11:04 AM CDT documented as of this encounter Plan of Treatment Upcoming Encounters Date Type Department Care Team (Late Contact Info) Description 06/13/2024 10:15 AM ANIMAL IMPERSONATOR Office Visit [facility] Oncology and Hematology [facility] [address] [place] [address] Yosef Salmeron MD [address] [facility] [address] [place] [address] documented as of this encounter Visit Diagnoses Diagnosis Malignant neoplasm of transverse colon Chronic anemia Anemia, unspecified documented in this encounter Care Teams Supervisor Lace Tearing Relationship Specialty Start Date End Date Cornelio Rayo DO [address] [facility] [address] [place] [address] PCP - General Internal Medicine 03/08/21 09/11/22 documented as of this encounter
--- OUTSIDE RECORDS SUMMARY | 2024-05-06 09:02 | XMS_ITS | Encounter Summary ---
Author Organization [facility] Address [address] [place] [address] Care Team Providers Care Children'S Literature Professor Name Role Phone Cornelio Rayo DO Primary Care Provider [phone] Encounter Details Date Type Department Care Team (Late Contact Info) Description 11/15/2021 Orders Only [facility] Oncology and Hematology [place] [address] [place] [address] Yosef Salmeron MD [address] [facility] [address] [place] [address] Malignant neoplasm of transverse colon Social History [...] (Late Contact Info) Description 06/13/2024 10:15 AM MIGRATION AGENT Office Visit [facility] Oncology and Hematology [place] [address] [place] [address] Yosef Salmeron MD [address] [facility] [address] [place] [address] documented as of this encounter Visit Diagnoses Diagnosis Malignant neoplasm of transverse colon documented in this encounter Care Teams Children'S Literature Professor Relationship Specialty Start Date End Date Cornelio Rayo DO [address] [facility] [address] [place] [address] PCP - General Internal Medicine 03/08/21 09/11/22 documented as of this encounter
--- OUTSIDE RECORDS SUMMARY | 2024-05-06 09:02 | XMS_ITS | Encounter Summary ---
Author Organization [facility] [employer] [facility] Address [address] [place] [address] Care Team Providers Care Air Tucker Name Role Phone Cornelio Rayo DO Primary Care Provider [phone] Encounter Details Date Type Department Care Team (Late Contact Info) Description 11/29/2021 Orders Only [facility] Oncology and Hematology [place] [address] [place] [address] Yosef Salmeron MD [facility] [employer] [address] [place] [address] Malignant neoplasm of transverse colon Social [...] Contact Info) Description 06/13/2024 10:15 AM MEDICAL RESEARCH ASSISTANT Office Visit [facility] Oncology and Hematology - [place] [address] [place] [address] Yosef Salmeron MD [address] [place] [address] documented as of this encounter Visit Diagnoses Diagnosis Malignant neoplasm of transverse colon documented in this encounter Care Teams Air Tucker Relationship Specialty Start Date End Date Cornelio Rayo DO 6812 [facility] 162 [facility] [address] [place] [address] PCP - General Internal Medicine 03/08/21 09/11/22 documented as of this encounter
--- OUTSIDE RECORDS SUMMARY | 2024-05-06 09:02 | XMS_ITS | Encounter Summary ---
Author Organization [facility] [employer] [facility] Address [address] [place] [address] Care Team Providers Care Molding Line Assistant Name Role Phone Cornelio Rayo DO Primary Care Provider [phone] Encounter Details Date Type Department Care Team (Late Contact Info) Description 12/09/2021 Orders Only [facility] Oncology and Hematology [facility] [address] [place] [address] [place]over Elise Malignant neoplasm of transverse colon Social History [...] (Late Contact Info) Description 06/13/2024 10:15 AM AMERICAN HISTORY PROFESSOR Office Visit [facility] Oncology and Hematology [facility] [address] [place] [address] Yosef Salmeron MD [address] [facility] [address] [place] [address] documented as of this encounter Visit Diagnoses Diagnosis Malignant neoplasm of transverse colon documented in this encounter Care Teams Molding Line Assistant Relationship Specialty Start Date End Date Cornelio Rayo DO 6812 [facility] [address] [place] [address] PCP - General Internal Medicine 03/08/21 09/11/22 documented as of this encounter
--- OUTSIDE RECORDS SUMMARY | 2024-05-06 09:02 | XMS_ITS | Encounter Summary ---
Author Organization [facility] Address [address] [place] [address] Care Team Providers Care Printing Supervisor Name Role Phone Cornelio Rayo Primary Care Provider [phone] Reason for Visit * Reason Onset Date Comments referral placed 12/01/2021 Encounter Details Date Type Department Care Team (Late st Contact Info) Description 12/01/2021 Telephone [facility] Gastroenterology [place] [address] [address] [facility] [address] [place] [address] Vikas Fung MD [address] [facility] [address] [place] [address] referral placed Social History Tobacco Use Types Packs/Day Years [...] encounter Miscellaneous Notes * Telephone Encounter - Patricia Baez RN - 12/01/2021 11:32 AM CDT Called and left a vm letting pt know that the referral is placed for her to schedule her colonoscopy with [facility], scheduling line # given. Also included in the vm that the scheduling line will call the pt in a week to set a date. documented in this encounter Plan of Treatment Upcoming Encounters Date Type Department Care Team (Late st Contact Info) Description 06/13/2024 10:15 AM BANKING SPECIALIST Office Visit [facility] Oncology and Hematology - [place] [address] [place] [address] Yosef Salmeron MD [address] [facility] [address] [place] [address] documented as of this encounter Visit Diagnoses Not on filedocumented in this encounter Care Teams Printing Supervisor Relationship Specialty Start Date End Date Cornelio Rayo DO 6812 [facility] [address] [place] [address] PCP - General Internal Medicine 03/08/21 09/11/22 documented as of this encounter
--- OUTSIDE RECORDS SUMMARY | 2024-05-06 09:02 | XMS_ITS | Encounter Summary ---
Author Organization [facility] [employer] [facility] Address [address] [place] [address] Care Team Providers Care Irrigation Service Technician Name Role Phone Cornelio Rayo DO Primary Care Provider [phone] Encounter Details Date Type Department Care Team (Late Contact Info) Description 11/22/2021 Orders Only [facility] Oncology and Hematology [facility] [address] [place] [address] Yosef Salmeron MD [facility] [employer] [address] [place] [address] Malignant neoplasm of transverse colon; Chronic [...] (Late Contact Info) Description 06/13/2024 10:15 AM PRISON CLASSIFICATION COUNSELOR Office Visit [facility] Oncology and Hematology [facility] [address] [place] [address] Yosef Salmeron MD [address] [employer] [address] [place] [address] documented as of this encounter Visit Diagnoses Diagnosis Malignant neoplasm of transverse colon Chronic anemia Anemia, unspecified documented in this encounter Care Teams Irrigation Service Technician Relationship Specialty Start Date End Date Cornelio Rayo DO 6812 [facility] 162 [facility] [address] [place] [address] PCP - General Internal Medicine 03/08/21 09/11/22 documented as of this encounter
--- OUTSIDE RECORDS SUMMARY | 2024-05-06 09:02 | XMS_ITS | Encounter Summary ---
Author Organization [facility] [employer] [facility] Address [address] [place] [address] Care Team Providers Care Secondary Connector Armature Name Role Phone Cornelio Rayo DO Primary Care Provider [phone] Reason for Visit * Reason Comments Follow Up Encounter Details Date Type Department Care Team (Late st Contact Info) Description 12/14/2021 11:45 AM CDT Office Visit [facility] Oncology and Hematology - [place] [address] [facility] [address] [place] [address] Yoesf Salmeron MD [address] [facility] [address] [place] [address] Malignant neoplasm of transverse colon [...] suspected to have Coronavirus/COVID-19? No / Unsure 12/14/2021 11:32 AM CDT documented as of this encounter Last Filed Vital Signs Vital Sign Reading Time Taken Comments Blood Pressure 148/93 12/14/2021 11:34 AM CDT Pulse 85 12/14/2021 11:34 AM CDT Temperature 36.9 ??C (98.4 ??F) 12/14/2021 1 1:34 AM CDT Respiratory Rate - - Oxygen Saturation 98% 12/14/2021 11: 34 AM CDT Inhaled Oxygen Concentration - - Weight 113.4 kg (250 lb 1.6 oz) 022 11:34 AM CDT Height 170.2 cm (5' 7 ) 12/14/2021 11:3 4 AM CDT Body Mass Index 39.17 12/14/2021 11:34 AM CDT documented in this encounter Progress Notes * Yosef Salmeron MD - 12/14/2021 11:50 AM CDT HEMATOLOGY / ONCOLOGY PROGRESS NOTE Patient Identification: Name: Mary Earl Age: 51 y.o. Sex: female : 1970 DIAGNOSIS T3 [...] came into the office for follow-up visit. Complain of bilateral lower extremity neuropathy but slowly improving. Denies any diarrhea. She has gained 5 pound weight. No other new complaints. Review of system Constitutional: denies fevers, sweats, 5 pound weight gain, denies any excessive tiredness and fatigue. HEENT: denies sinus congestion, hearing or vision [...] review system was reviewed and as above Objective: Vital signs in last 24 hours: As [...] 4.8 hemoglobin 12.2 platelet 192,000 CEA 1.9 Assessment: Plan: Patient Active Problem List Diagnosis Date Noted ??? Malignant neoplasm of transverse colon ??? Colonic mass ??? Liver lesion ??? Acute colitis ??? Abdominal pain 03/08/2021 ??? Hypokalemia 03/08/2021 T3 N1a M0 stage IIIB [...] 04/18 of chemotherapy on October 11, 2021. Labs noted that showed improvement in hemoglobin and liver enzymes. Tumor marker normal. Clinicallythere is no evidence of relapse of disease. She is going to have colonoscopy later this week. I will see her back in 3 months. Based on the next with her in 3 months we will refer her for port removal. Anemia. Hemoglobin normal. Continue iron with vitamin B12. Leukopenia. WBC normal. Chemotherapy-induced neuropathy. Stable. We discussed various treatment options today. Follow-up in 3 months. TOBACCO COUNSELING She is not a tobacco user. . 12/14/2021 Yosef Salmeron MD documented in this encounter Plan of Treatment Upcoming Encounters Date Type Department Care Team (Late st Contact Info) Description 06/13/2024 10:15 AM BRIM BUSTER Office Visit [facility] Oncology and Hematology [facility] 2[address] [facility] [address] [place] [address] Yosef Salmeron MD [address] [facility] [address] [place] [address] Scheduled Orders Name Type Priority Associated Diagnoses Orde r Schedule CBC WITH DIFFERENTIAL Lab Stat Malignant neoplasm of transverse colon Expected: 03/08/2022, Expires: 12/14/2022 COMPREHENSIVE METABOLIC PANEL Lab Stat Malignant neoplasm of transverse colon Expected: 03/08/2022, Expires: 12/14/2022 documented as of this encounter Visit Diagnoses Diagnosis Malignant neoplasm of transverse colon- Primary documented in this encounter Care Teams Secondary Connector Armature Relationship Specialty Start Date End Date Cornelio Rayo DO [address] [facility] [address] [place] [address] PCP - General Internal Medicine 03/08/21 09/11/22 documented as of this encounter
--- OUTSIDE RECORDS SUMMARY | 2024-05-06 09:02 | XMS_ITS | Encounter Summary ---
Author Organization [facility] [employer] [facility] Address [address] [place] [address] Care Team Providers Care Rough Rib Grader Name Role Phone Cornelio Rayo DO Primary Care Provider [phone] Encounter Details Date Type Department Care Team (Late Contact Info) Description 11/01/2021 Orders Only [facility] Oncology and Hematology [place] [address] [place] [address] Yosef Salmeron MD [address] [facility] [employer] [address] [place] [address] Malignant neoplasm of transverse colon [...] (Late Contact Info) Description 06/13/2024 10:15 AM INTEGRATED CIRCUIT IC LAYOUT DESIGNER Office Visit [facility] Oncology and Hematology [place] [address] [place] [address] Yosef Salmeron MD [address] [facility] [address] [place] [address] documented as of this encounter Visit Diagnoses Diagnosis Malignant neoplasm of transverse colon documented in this encounter Care Teams Rough Rib Grader Relationship Specialty Start Date End Date Cornelio Rayo DO 6812 [facility] [address] [place] [address] PCP - General Internal Medicine 03/08/21 09/11/22 documented as of this encounter
--- OUTSIDE RECORDS SUMMARY | 2024-05-06 09:02 | XMS_ITS | Encounter Summary ---
Author Organization [facility] Address [address] [facility] Attn: Epic Prelude ADT [place] [address] Care Team Providers Care Dba Developer Name Role Phone Cornelio Rayo DO Primary Care Provider [phone] Encounter Details Date Type Department Care Team (Latest Contact Info) Description 12/14/2021 Travel Social History Tobacco Use Types Packs/Day [...] st Contact Info) Description 06/13/2024 10:15 AM COLORMAN Office Visit [facility] Oncology and Hematology - [place] [address] [facility] [address] [place] [address] Yosef Salmeron MD [address] [facility] [address] [place] [address] documented as of this encounter Visit Diagnoses Not on filedocumented in this encounter Care Teams Dba Developer Relationship Specialty Start Date End Date Cornelio Rayo DO 6812 [facility] 162 [facility] [address] [place] [address] PCP - General Internal Medicine 03/08/21 09/11/22 documented as of this encounter
--- OUTSIDE RECORDS SUMMARY | 2024-05-06 09:02 | XMS_ITS | Encounter Summary ---
Author Organization [facility] [employer] [facility] Address [address] [place] [address] Care Team Providers Care Esthetician And Manager Medical Spa Name Role Phone Cornelio Rayo DO Primary Care Provider [phone] Encounter Details Date Type Department Care Team (Late Contact Info) Description 12/06/2021 Orders Only [facility] Oncology and Hematology [facility] [address] [place] [address] Yosef Salmeron MD [facility] [employer] [address] [place] [address] Malignant neoplasm of transverse colon; Chronic [...] (Late Contact Info) Description 06/13/2024 10:15 AM SOFTWARE DESIGNER Office Visit [facility] Oncology and Hematology [facility] [address] [place] [address] Yosef Salmeron MD [address] [employer] [address] [place] [address] documented as of this encounter Visit Diagnoses Diagnosis Malignant neoplasm of transverse colon Chronic anemia Anemia, unspecified documented in this encounter Care Teams Esthetician And Manager Medical Spa Relationship Specialty Start Date End Date Cornelio Rayo DO 6812 [facility] 162 [facility] [address] [place] [address] PCP - General Internal Medicine 03/08/21 09/11/22 documented as of this encounter
--- OUTSIDE RECORDS SUMMARY | 2024-05-06 09:02 | XMS_ITS | Encounter Summary ---
Author Organization [facility] Address [address] [place] [address] Care Team Providers Care Controller Operations And Hr Manager Name Role Phone Cornelio Rayo Primary Care Provider [phone] Reason for Visit * Auth/Cert Specialty Diagnoses / Procedures Referred By Contac t Referred To Contact Multi Specialty Diagnoses Malignant neoplasm of transverse colon Procedures [place] COLONOSCOPY FLX DX W/COLLJ SPEC WHEN PFRMD COLONOSCOPY [address] [place] [address] Referral ID Status Reason Start Date Expiration Date Visits Re quested Visits Authorized [id number] 1 1 Encounter Details Date Type Department Care Team (Latest Contact Info) Description 12/16/2021 10:45 AM CDT - 12/16/2021 11:58 AM CDT Hospital Encounter [address] [place] [address] Vikas Fung MD [address] [place] [address] Malignant neoplasm of transverse colon Discharge Disposition: Home or Self Care Social History Tobacco Use Types Packs/Day Years [...] INSERTION performed by Katelyn Jack MD at [facility] ??? [place] COLONOSCOPY FLX DX W/COLLJ SPEC WHEN PFRMD N/A 03/10/2021 COLONOSCOPY performed by Vikas Fung MD at [facility] GI [facility] ??? AZ IV INJ TO TEST BLOOD FLOW IN FLAP/GRAFT 03/26/2021 IV INJECTION OF AGENT FOR VASCULAR FLOW IN FLAP OR GRAFT performed by Katelyn Jack MD at [facility] ??? AZ LAP, SURG MOBIL SPLENIC FL DUR PTL COLECTOMY N/A 03/26/2021 SPLENIC FLEXURE MOBILIZATION DAVINCI XI performed by Katelyn Jack MD at [facility] ? ? AZ LAP,SURG,COLECTOMY,W/END COLOST & CLOSUR N/A 03/26/2021 DAVINCI SPLENIC FLEXURE RESECTION WITH PRIMARY ANASTOMOSIS performed by Katelyn Jack MD at [facility] Medications Prior to Admission Medication Sig Dispense [...] 12/16/2021 11:28 AM CDTAssociated Order(s): COLONOSCOPY REPORT [facility] Endoscopy Patient Name: Mary Earl Procedure [...] Addenda: 0 Procedure Date: 12/16/2021 10:56:46 AM [id number] [facility] [address] [place] [address] * Elham Lim RN - 12/09/2021 9:22 AM CDT [facility] GI Nurse Assessment Patient: Mary Earl : 1970 Endoscopist: Surgeon(s): Vikas Fung MD Upcoming Procedure: Procedure to be Performed: Procedure(s): COLONOSCOPY Procedure Date/Time: 12/16/2021 at 1140 Diagnosis/Indication for procedure: Pre-Op Diagnosis Codes: * Malignant neoplasm of transverse colon [C18.4] Location: [facility] Referring Physician: Cornelio Rayo Patient's BMI: Body [...] INSERTION performed by Katelyn Jack MD at [facility] ??? [place] COLONOSCOPY FLX DX W/COLLJ SPEC WHEN PFRMD N/A 03/10/2021 COLONOSCOPY performed by Vikas Fung MD at [facility] GI [facility] ??? [place] IV INJ TO TEST BLOOD FLOW IN FLAP/GRAFT 03/26/2021 IV INJECTION OF AGENT FOR VASCULAR FLOW IN FLAP OR GRAFT performed by Katelyn Jack MD at [facility] ??? AZ LAP, SURG MOBIL SPLENIC FL DUR PTL COLECTOMY N/A 03/26/2021 SPLENIC FLEXURE MOBILIZATION DAVINCI XI performed by Katelyn Jack MD at [facility] ? ? AZ LAP,SURG,COLECTOMY,W/END COLOST & CLOSUR N/A 03/26/2021 DAVINCI SPLENIC FLEXURE RESECTION WITH PRIMARY ANASTOMOSIS performed by Katelyn Jack MD at [facility] Past Medical History: Past Medical History: [...] Routine Pre-Anesthesia Protocol for GI Lab Procedures [facility] Approved by: [facility] - Medical Executive Committee Approval Date: 07/22/2021 ORDERS ARE ENTERED ???PER PROTOCOL?? Enter the protocol in the patient???s electronic health record using [employer]: .anestprotocolgilab Nursing Orders: Monitoring ??? Obtain and record vital signs on admission to [facility] ??? Continuous vital signs (Non-invasive [...] appropriate, may confirm POC with: Nursing Only [id number] (this lab can be obtained at no cost to the patient when confirming a critical high or Critical low POC glucose. See hypoglycemia protocol for additional orders if needed: STL ANES Adult Perianesthesia HYPOglycemia Protocol ??? Notify any [...] unable to obtain urine, may obtain serum [id number]) All patients with potential for childbearing (menarche [...] st Contact Info) Description 06/13/2024 10:15 AM DIP TANKER Office Visit [facility] Oncology and Hematology - [place] [address] [place] [address] Yosef Salmeron MD [address] [facility] [address] [place] [address] documented as of this encounter Procedures Procedure Name Priority Date/Time Associated Diagnosis Comments [place] COLONOSCOPY FLX DX W/COLLJ SPEC WHEN PFRMD 12/16/2021 11:40 AM CDT Malignant neoplasm of transverse colon Case Notes 12/09 - MOVED TO MD DIRECT PER - SP ( SEE REFERRAL) COLONOSCOPY REPORT 12/16/2021 11 :29 AM CDT documented in this encounter Results * COLONOSCOPY REPORT (12/16/2021 11:29 AM CDT) Narrative Procedure Note Vikas Fnug MD - 12/16/2021 11:28 AM CDT [facility] Endoscopy Patient Name: Mary Earl Procedure [...] Addenda: 0 Procedure Date: 12/16/2021 10:56:[address] [place] [address] Vikas Fung MD GI PROCEDURE ORDERAB LES documented in this encounter Visit Diagnoses Not [...] 1100 (New Bag - Prov ider: Blanca Montejo RN)1107 (Continue from Pre-Op - Provider: Roxy Grewal CRNA)1123 (Fluid Volume - Provider: Roxy Grewal CRNA)1141 (Stopped - Provider: Yary Mott, MAXX) documented in this encounter Care Teams Controller Operations And Hr Manager Relationship Specialty Start Date End Date Cornelio Rayo DO 6812 [facility] [address] [place] [address] PCP - General Internal Medicine 03/08/21 09/11/22 documented as of this encounter
--- OUTSIDE RECORDS SUMMARY | 2024-05-06 09:03 | XMS_ITS | Encounter Summary ---
Author Organization [facility] [employer] [facility] Address [address] [place] [address] Care Team Providers Care Rent And Housing Investigator Name Role Phone Cornelio Rayo DO Primary Care Provider Encounter Details Date Type Department Care Team (Late Contact Info) Description 09/06/2021 Orders Only [facility] Oncology and Hematology [place] [address] [place] [address] Yosef Salmeron MD [address] [facility] [address] [place] [address] Malignant neoplasm of transverse colon [...] suspected to have Coronavirus/COVID-19? No / Unsure 08/31/2021 8:38 AM CDT documented as of this encounter Plan of Treatment Upcoming Encounters Date Type Department Care Team (Late Contact Info) Description 06/13/2024 10:15 AM LINE CLEARANCE FOREMAN Office Visit [facility] Oncology and Hematology [place] [address] [place] [address] Yosef Salmeron MD [address] [facility] [address] [place] [address] documented as of this encounter Visit Diagnoses Diagnosis Malignant neoplasm of transverse colon documented in this encounter Care Teams Rent And Housing Investigator Relationship Specialty Start Date End Date Cornelio Rayo DO 6812 [facility] [address] [place] [address] PCP - General Internal Medicine 03/08/21 09/11/22 documented as of this encounter
--- OUTSIDE RECORDS SUMMARY | 2024-05-06 09:03 | XMS_ITS | Encounter Summary ---
Author Organization [facility] [facility] Address [address] [place] [address] Care Team Providers Care Lead Fire Protection Engineer Name Role Phone Cornelio Rayo DO Primary Care Provider [phone] Encounter Details Date Type Department Care Team (Late Contact Info) Description 09/27/2021 Orders Only [facility] Oncology and Hematology [facility] [address] [place] [address] Yosef Salmeron MD [address] [facility] [place] [address] [place] [address] Malignant neoplasm of transverse colon; [...] suspected to have Coronavirus/COVID-19? No / Unsure 09/14/2021 9:21 AM CDT documented as of this encounter Plan of Treatment Upcoming Encounters Date Type Department Care Team (Late Contact Info) Description 06/13/2024 10:15 AM BRISTLE MACHINE OPERATOR Office Visit [facility] Oncology and Hematology [facility] [address] [place] [address] Yosef Salmeron MD [address] [facility] [address] [place] [address] documented as of this encounter Visit Diagnoses Diagnosis Malignant neoplasm of transverse colon Chronic anemia Anemia, unspecified documented in this encounter Care Teams Lead Fire Protection Engineer Relationship Specialty Start Date End Date Cornelio Rayo DO [address] [facility] [address] [place] [address] PCP - General Internal Medicine 03/08/21 09/11/22 documented as of this encounter
--- OUTSIDE RECORDS SUMMARY | 2024-05-06 09:03 | XMS_ITS | Encounter Summary ---
Author Organization [facility] Address [address] [facility] Attn: Epic Prelude ADT OLLIE HERRMANN [address] Care Team Providers Care Records Assistant Name Role Phone Cornelio Rayo DO Primary Care Provider [phone] Encounter Details Date Type Department Care Team (Latest Contact Info) Description 10/19/2021 Travel Social History Tobacco Use Types Packs/Day [...] st Contact Info) Description 06/13/2024 10:15 AM RIM ROLLER SETTER Office Visit [facility] Oncology and Hematology - [place] [address] [facility] [address] [place] [address] Yosef Salmeron MD [address] [facility] [address] [place] [address] documented as of this encounter Visit Diagnoses Not on filedocumented in this encounter Care Teams Records Assistant Relationship Specialty Start Date End Date Cornelio Rayo DO [address] [facility] [address] [facility] [address] [place] [address] PCP - General Internal Medicine 03/08/21 09/11/22 documented as of this encounter
--- OUTSIDE RECORDS SUMMARY | 2024-05-06 09:03 | XMS_ITS | Encounter Summary ---
Author Organization [facility] [employer] Address [address] [place] [address] Care Team Providers Care Electric Locomotive Firer/Fireman Name Role Phone Cornelio Rayo DO Primary Care Provider [phone] Encounter Details Date Type Department Care Team (Late Contact Info) Description 10/18/2021 Orders Only [facility] Oncology and Hematology [place] [address] [place] [address] Yosef Salmeron MD [address] [facility] [address] [place] [address] Malignant neoplasm of transverse colon [...] (Late Contact Info) Description 06/13/2024 10:15 AM RN DIABETES EDUCATOR Office Visit [facility] Oncology and Hematology [place] [address] [place] [address] Yosef Salmeron MD [address] [facility] [address] [place] [address] documented as of this encounter Visit Diagnoses Diagnosis Malignant neoplasm of transverse colon documented in this encounter Care Teams Electric Locomotive Firer/Fireman Relationship Specialty Start Date End Date Cornelio Rayo DO [address] [facility] [address] [place] [address] PCP - General Internal Medicine 03/08/21 09/11/22 documented as of this encounter
--- OUTSIDE RECORDS SUMMARY | 2024-05-06 09:03 | XMS_ITS | Encounter Summary ---
Author Organization [facility] Address [address] [facility] Attn: Epic Prelude ADT OLLIE HERRMANN [address] Care Team Providers Care Injection Molding Operator Name Role Phone Cornelio Rayo DO Primary Care Provider [phone] Encounter Details Date Type Department Care Team (Latest Contact Info) Description 09/14/2021 Travel Social History Tobacco Use Types Packs/Day [...] st Contact Info) Description 06/13/2024 10:15 AM TELECOMMUNICATIONS TECHNICIAN Office Visit [facility] Oncology and Hematology - [place] [address] [facility] [address] [place] [address] Yosef Salmeron MD [address] [facility] [address] [place] [address] documented as of this encounter Visit Diagnoses Not on filedocumented in this encounter Care Teams Injection Molding Operator Relationship Specialty Start Date End Date Cornelio Rayo DO [address] [facility] 162 [facility] [address] [place] [address] PCP - General Internal Medicine 03/08/21 09/11/22 documented as of this encounter
--- OUTSIDE RECORDS SUMMARY | 2024-05-06 09:03 | XMS_ITS | Encounter Summary ---
Author Organization [facility] [employer] [facility] Address [address] [place] [address] Care Team Providers Care Leather Production Artisan Name Role Phone Cornelio Rayo DO Primary Care Provider [phone] Encounter Details Date Type Department Care Team ([facility] Contact Info) Description 09/28/2021 Orders Only [facility] Oncology and Hematology [facility] [address] [place] [address] Provider, Abstract NO ADDRESS ON FILE Social [...] (Late Contact Info) Description 06/13/2024 10:15 AM BUS GIRL Office Visit [facility] Oncology and Hematology [facility] [address] [place] [address] Yosef Salmeron MD [address] [facility] [address] [place] [address] documented as of this encounter Procedures Procedure Name Priority Date/Time Associated Diagnosis Comments URINALYSIS WITH REFLEX CULTURE Routine 09/27/2021 documented in this encounter Results * URINALYSIS WITH REFLEX CULTURE (09/27/2021) Urine URINE SPECIMEN OBTAINED BY CLEAN CATCH PROCEDURE / Unknown Abstract Provider URINE ORDERABLES documented in this encounter Visit Diagnoses Not on filedocumented in this encounter Care Teams Leather Production Artisan Relationship Specialty Start Date End Date Cornelio Rayo DO [address] [facility] [address] [place] [address] PCP - General Internal Medicine 03/08/21 09/11/22 documented as of this encounter
--- OUTSIDE RECORDS SUMMARY | 2024-05-06 09:03 | XMS_ITS | Encounter Summary ---
Author Organization [facility] [employer] [facility] Address [address] [place] [address] Care Team Providers Care Converter Supervisor Name Role Phone Cornelio Rayo DO Primary Care Provider [phone] Encounter Details Date Type Department Care Team (Late Contact Info) Description 09/20/2021 Orders Only [facility] Oncology and Hematology [place] [address] [place] [address] Yosef Salmeron MD [address] [facility] [employer] [address] [place] [address] Malignant neoplasm of transverse colon [...] (Late Contact Info) Description 06/13/2024 10:15 AM PIGGYBACK CLERK Office Visit [facility] Oncology and Hematology [place] [address] [place] [address] Yosef Salmeron MD [address] [facility] [address] [place] [address] documented as of this encounter Visit Diagnoses Diagnosis Malignant neoplasm of transverse colon documented in this encounter Care Teams Converter Supervisor Relationship Specialty Start Date End Date Cornelio Rayo DO [address] [facility] [address] [place] [address] PCP - General Internal Medicine 03/08/21 09/11/22 documented as of this encounter
--- OUTSIDE RECORDS SUMMARY | 2024-05-06 09:03 | XMS_ITS | Encounter Summary ---
Author Organization [facility] Address [address] [place] [address] Care Team Providers Care Homicide Squad Sergeant Name Role Phone Cornelio Rayo DO Primary Care Provider [phone] Reason for Visit * Reason Onset Date Comments Urinary Frequency 09/29/2021 Encounter Details Date Type Department Care Team (Late st Contact Info) Description 09/29/2021 Telephone [facility] Oncology and Hematology - [place] [address] [facility] [address] [place] [address] Yosef Salmeron MD [address] [facility] [address] [place] [address] Urinary Frequency Social History Tobacco Use Types Packs/Day Years [...] AM CDT documented as of this encounter Miscellaneous Notes * Telephone Encounter - Yao Mann RN - 09/29/2021 10:57 AM CDT 09/29/21 1050 Already called pt back and spoke with her in regards to her urine cx. Pt has already spoke with office in regards to her urine culture. She reports that Dr. Barksdale office told her she doesnot have a UTI at this time and to stop taking the antibiotic. Pt verbalized understanding and states that she stopped it. Pt is already rescheduled for her office visit and chemo treatment for 10/05/21. Pt verbalizes understanding. ----- Message from Opal Sanon sent at 09/29/2021 10:42 AM CDT ----- Regarding: Patient call back Patient called and left a message for you to call her when you get a chance. documented in this encounter Plan of Treatment Upcoming Encounters Date Type Department Care Team (Late st Contact Info) Description 06/13/2024 10:15 AM CHIEF RADIOLOGY Office Visit [facility] Oncology and Hematology [facility] [address] [place] [address] [address] [place] [address] Yosef Salmeron MD [address] [facility] [address] [place] [address] documented as of this encounter Visit Diagnoses Not on filedocumented in this encounter Care Teams Homicide Squad Sergeant Relationship Specialty Start Date End Date Cornelio Rayo DO [address] [place] [address] PCP - General Internal Medicine 03/08/21 09/11/22 documented as of this encounter
--- OUTSIDE RECORDS SUMMARY | 2024-05-06 09:03 | XMS_ITS | Encounter Summary ---
Author Organization [facility] [employer] [facility] Address [address] [place] [address] Care Team Providers Care Implant Coordinator Name Role Phone Cornelio Rayo DO Primary Care Provider [phone] Encounter Details Date Type Department Care Team (Late Contact Info) Description 10/11/2021 Orders Only [facility] Oncology and Hematology [facility] [address] [place] [address] Yosef Salmeron MD [address] [facility] [address] [place] [address] Malignant neoplasm of transverse colon; [...] suspected to have Coronavirus/COVID-19? No / Unsure 10/05/2021 11:05 AM CDT documented as of this encounter Plan of Treatment Upcoming Encounters Date Type Department Care Team (Late Contact Info) Description 06/13/2024 10:15 AM PRECISION LENS GENERATOR Office Visit [facility] Oncology and Hematology [facility] [address] [place] [address] Yosef Salmeron MD [address] [facility] [address] [place] [address] documented as of this encounter Visit Diagnoses Diagnosis Malignant neoplasm of transverse colon Chronic anemia Anemia, unspecified documented in this encounter Care Teams Implant Coordinator Relationship Specialty Start Date End Date Cornelio Rayo DO [address] [facility] [address] [place] [address] PCP - General Internal Medicine 03/08/21 09/11/22 documented as of this encounter
--- OUTSIDE RECORDS SUMMARY | 2024-05-06 09:03 | XMS_ITS | Encounter Summary ---
Author Organization [facility] Address [address] [place] [address] Care Team Providers Care Obstetrical Nurse Name Role Phone Cornelio Rayo DO Primary Care Provider [phone] Reason for Visit * Reason Onset Date Comments lab orders 08/30/2021 Encounter Details Date Type Department Care Team ([facility] Contact Info) Description 08/30/2021 Telephone [facility] Oncology and Hematology [place] [address] [place] [address] Yosef Salmeron MD [address] [facility] [employer] [address] [place] [address] lab orders Social History Tobacco Use Types Packs/Day Years [...] Exposure Response Date Recorded In the last month, have you been in contact with someone who was confirmed or suspected to have Coronavirus / COVID-19? No / Unsure 08/17/2021 8:36 AM CDT documented as of this encounter Plan of Treatment Upcoming Encounters Date Type Department Care Team (Late Contact Info) Description 06/13/2024 10:15 AM READING TUTOR Office Visit [facility] Oncology and Hematology [place] [address] [place] [address] Yosef Salmeron MD [address] [facility] [address] [place] [address] Scheduled Orders Name Type Priority Associated Diagnoses Orde r Schedule CBC WITH DIFFERENTIAL Lab Routine Malignant neoplasm of transverse colon Chronic anemia Every Two Weeks for 99 Occurrences starting 08/30/2021 until 08/30/2022 COMPREHENSIVE METABOLIC PANEL Lab Routine Malignant neoplasm of transverse colon Chronic anemia Every Two Weeks for 99 Occurrences starting 08/30/2021 until 08/30/2022 documented as of this encounter Visit Diagnoses Diagnosis Malignant neoplasm of transverse colon- Primary Chronic anemia Anemia, unspecified documented in this encounter Care Teams Obstetrical Nurse Relationship Specialty Start Date End Date Cornelio Rayo DO [address] [facility] [address] [facility] [address] [place] [address] PCP - General Internal Medicine 03/08/21 09/11/22 documented as of this encounter
--- OUTSIDE RECORDS SUMMARY | 2024-05-06 09:03 | XMS_ITS | Encounter Summary ---
Author Organization [facility] Address [address] [place] [address] Care Team Providers Care Pull Through Hooker Name Role Phone Cornelio Rayo DO Primary Care Provider [phone] Reason for Visit * Reason Comments Chemotherapy 2 week f/u with labs and Tx Encounter Details Date Type Department Care Team (Late st Contact Info) Description 09/14/2021 9:45 AM CDT Office Visit [facility] Oncology and Hematology - [place] [address] [place] [address] [facility] [address] [place] [address] Yosef Salmeron MD [address] [facility] [address] [place] [address] Malignant neoplasm of transverse colon [...] Sign Reading Time Taken Comments Blood Pressure 144/84 09/14/2021 9:26 AM CDT Pulse 88 09/14/2021 9:26 AM CDT Temperature 36.3 ??C (97.4 ??F) 09/14/2021 9:26 AM CD T Respiratory Rate - - Oxygen Saturation 98% 09/14/2021 9:26 AM CDT Inhaled Oxygen Concentration - - Weight 109.4 kg (241 lb 1.6 oz) 09/14/2021 9:26 AM CDT Height 170.2 cm (5' 7 ) 09/14/2021 9:26 AM CDT Body Mass Index 37.76 09/14/2021 9:26 AM CDT documented in this encounter Progress Notes * Yosef Salmeron MD - 09/14/2021 11:32 AM CDT HEMATOLOGY / ONCOLOGY PROGRESS NOTE [...] done on March 26, 2021. CURRENT TREATMENT Adjuvant chemotherapy with FOLFOX started 04/26/2021 TREATMENT HISTORY SUBJECTIVE Patient came into the office for follow-up visit and continuation of chemotherapy. She has mild intermittent constipation. Neuropathy remains stable. Denies any other new complaints. Review of system Constitutional: denies fevers, sweats, complain of tiredness and fatigue HEENT: denies sinus congestion, hearing or vision problems Respiratory: denies cough, dyspnea, wheeze Cardiovascular: denies chest pain, exertional chest pressure/discomfort, nausea, syncope, shortnessof breath GI: denies dsyphagia, reflux symptoms, vomiting, melena, complain of intermittent constipation. :denies dysuria, frequency, incontinence, urgency Integumentary system: no [...] 11.4 platelet 95,000 ANC 1100 creatinine 0.8 Assessment: Plan: Patient Active Problem [...] started adjuvant chemotherapy with FOLFOX in 04/26/2021. Labs noted. Patient has mild leukopenia but ANC is 1100. We will proceed with chemotherapy cycle #10 and reduce the dose by total of 25%. Follow-up in 2 weeks. Anemia. Hemoglobin stable. She will continue vitamin C and vitamin B12 along with iron. Leukopenia. We will reduce chemotherapy dose by 25%. Intertrigo. Patient is feeling much better after completed course of fluconazole. Chemotherapy-induced neuropathy. Stable. TOBACCO COUNSELING She is not a tobacco user. . 09/14/2021 Yosef Salmeron MD documented in this encounter Plan of Treatment Upcoming Encounters Date Type Department Care Team (Late st Contact Info) Description 06/13/2024 10:15 AM CHANGE MANAGEMENT SPECIALIST Office Visit [facility] Oncology and Hematology [facility] [address] [facility] [address] [place] [address] Yosef Salmeron MD [address] [facility] [address] [place] [address] Scheduled Orders Name Type Priority Associated Diagnoses Orde r Schedule CBC WITH DIFFERENTIAL Lab Stat Malignant neoplasm of transverse colon Expected: 09/28/2021, Expires: 09/14/2022 documented as of this encounter Visit Diagnoses Diagnosis Malignant neoplasm of transverse colon- Primary documented in this encounter Care Teams Pull Through Hooker Relationship Specialty Start Date End Date Cornelio Rayo DO [address] [facility] [address] [place] [address] PCP - General Internal Medicine 03/08/21 09/11/22 documented as of this encounter
--- OUTSIDE RECORDS SUMMARY | 2024-05-06 09:03 | XMS_ITS | Encounter Summary ---
Author Organization [facility] Address [address] [place] [address] Care Team Providers Care Senior Oracle Applications Developer Name Role Phone Cornelio Rayo DO Primary Care Provider [phone] Reason for Visit * Reason Comments Chemotherapy 2 WEEK F/U WITH LABS AND TX Encounter Details Date Type Department Care Team (Late st Contact Info) Description 08/31/2021 8:45 AM CDT Office Visit [facility] Oncology and Hematology - [place] [address] [place] [address] [facility] 200 [place] [address] Yosef Salmeron MD [address] [facility] [address] [place] [address] Malignant neoplasm of transverse colon [...] Sign Reading Time Taken Comments Blood Pressure 144/98 08/31/2021 8:54 AM CDT Pulse 86 08/31/2021 8:54 AM CDT Temperature 36.8 ??C (98.2 ??F) 08/31/2021 8:54 AM CD T Respiratory Rate - - Oxygen Saturation 98% 08/31/2021 8:54 AM CDT Inhaled Oxygen Concentration - - Weight 107.1 kg (236 lb 3.2 oz) 08/31/2021 8:54 AM CDT Height 170.2 cm (5' 7 ) 08/31/2021 8:54 AM CDT Body Mass Index 36.99 08/31/2021 8:54 AM CDT documented in this encounter Progress Notes * Yosef Salmeron MD - 08/31/2021 9:21 AM CDT HEMATOLOGY / ONCOLOGY PROGRESS NOTE [...] follow-up visit and continuation of chemotherapy. She developed a rash under the right breast. She has mild constipation. Neuropathy has improved. Sinus congestion has improved. No other new complaint. Review of system Constitutional: denies fevers, sweats, improvement in tiredness and fatigue HEENT: denies sinus congestion, hearing or vision problems Respiratory: denies cough, dyspnea, wheeze Cardiovascular: denies chest pain, exertional chest pressure/discomfort, nausea, syncope, shortnessof breath GI: denies dsyphagia, reflux symptoms, vomiting, melena, complain of intermittent constipation. :denies dysuria, frequency, incontinence, urgency Integumentary system: no lymphadenopathy, sweats, flushing Musculoskeletal: denies: myalgia, arthralgia Neurological: denies blurry or disturbed vision, complain of stable neuropathy. Skin: No lumps, bumps or rashes. 12 point [...] 3.2 hemoglobin 11.8 platelet 103,000 creatinine 0.8 Assessment: Plan: Patient Active Problem [...] adjuvant chemotherapy with FOLFOX in 04/26/2021. Labs noted and stable. We will proceed with chemotherapy with 15% dose reduction. She will receive cycle #9 today. Follow-up in 2 weeks. Yeast infection under the breast. We will prescribe her fluconazole. Anemia. Hemoglobin has improved. Continue iron along with vitamin C and B12. Leukopenia. WBC count has improved with dose reduction. Follow-up in 2 weeks. TOBACCO COUNSELING She is not a tobacco user. . 08/31/2021 Yosef Salmeron MD documented in this encounter Plan of Treatment Upcoming Encounters Date Type Department Care Team (Late st Contact Info) Description 06/13/2024 10:15 AM CLUB CAR ATTENDANT Office Visit [facility] Oncology and Hematology [facility] [address] [facility] [address] [place] [address] Yosef Salmeron MD [address] [facility] [address] [place] [address] Scheduled Orders Name Type Priority Associated Diagnoses Orde r Schedule BASIC METABOLIC PANEL Lab Stat Malignant neoplasm of transverse colon Expected: 09/14/2021, Expires: 08/31/2022 CBC WITH DIFFERENTIAL Lab Stat Malignant neoplasm of transverse colon Expected: 09/14/2021, Expires: 08/31/2022 documented as of this encounter Visit Diagnoses Diagnosis Malignant neoplasm of transverse colon- Primary documented in this encounter Care Teams Senior Oracle Applications Developer Relationship Specialty Start Date End Date Cornelio Rayo DO [address] [facility] [address] [place] [address] PCP - General Internal Medicine 03/08/21 09/11/22 documented as of this encounter
--- OUTSIDE RECORDS SUMMARY | 2024-05-06 09:03 | XMS_ITS | Encounter Summary ---
Author Organization [facility] CARLOS EDUARDOCareX[employer] [facility] Address [address] [place] [address] Care Team Providers Care Top Dyeing Machine Loader Name Role Phone Cornelio Rayo DO Primary Care Provider [phone] Reason for Visit * Reason Comments Chemotherapy 2 week f/u with labs and Tx Encounter Details Date Type Department Care Team (Late st Contact Info) Description 10/05/2021 11:30 AM CDT Office Visit [facility] Oncology and Hematology - [place] [address] [place] [address] [facility] [address] [place] [address] Yosef Salmeron MD [address] [facility] [address] [place] [address] Malignant neoplasm of transverse colon [...] Sign Reading Time Taken Comments Blood Pressure 141/85 10/05/2021 11:54 AM CDT Pulse 87 10/05/2021 11:54 AM CDT Temperature 36.9 ??C (98.5 ??F) 10/05/2021 1 1:54 AM CDT Respiratory Rate - - Oxygen Saturation 98% 10/05/2021 11: 54 AM CDT Inhaled Oxygen Concentration - - Weight 110.9 kg (244 lb 6.4 oz) 022 11:54 AM CDT Height 170.2 cm (5' 7 ) 10/05/2021 11:5 4 AM CDT Body Mass Index 38.28 10/05/2021 11:54 AM CDT documented in this encounter Progress Notes * Yosef Salmeron MD - 10/05/2021 1:01 PM CDT HEMATOLOGY / ONCOLOGY PROGRESS NOTE [...] office for follow-up visit and continuation of chemotherapy treatment. She has been tolerating treatment well other than some neuropathy. Denies any bleeding. Denies any weight loss. No other new complaint. Review of system Constitutional: denies fevers, sweats, complain of mild tiredness and fatigue HEENT: denies sinus congestion, hearing or vision problems Respiratory: denies cough, dyspnea, wheeze Cardiovascular: denies chest pain, exertional chest pressure/discomfort, nausea, syncope, shortnessof breath GI: denies dsyphagia, reflux symptoms, vomiting, melena, complain of intermittent constipation : denies dysuria, frequency, incontinence, urgency [...] showed WBC 3.6 hemoglobin 11.7 platelet 157,000 Assessment: Plan: Patient Active Problem List Diagnosis [...] FOLFOX in 04/26/2021. Labs noted and stable. She will proceed with chemotherapy cycle #11/12 with 25% dose reduction today. She has been tolerating treatment well. I will order CT scan after cycle #12 of chemotherapy. Follow-up in 2 weeks. Anemia. Hemoglobin is stable. She will continue iron with vitamin C and vitamin B12. Leukopenia. Chemotherapy dose has been reduced by 25%. ANC stable. Chemotherapy-induced neuropathy. Stable. TOBACCO COUNSELING She is not a tobacco user. . 10/05/2021 Yosef Salmeron MD documented in this encounter Plan of Treatment Upcoming Encounters Date Type Department Care Team (Late st Contact Info) Description 06/13/2024 10:15 AM FIELD CROP HARVEST WORKER Office Visit [facility] Oncology and Hematology [facility] [address] [facility] [address] [place] [id number] Yosef Salmeron MD [address] [facility] [address] [place] [address] Scheduled Orders Name Type Priority Associated Diagnoses Orde r Schedule COMPREHENSIVE METABOLIC PANEL Lab Stat Malignant neoplasm of transverse colon Expected: 10/19/2021, Expires: 10/05/2022 CBC WITH DIFFERENTIAL Lab Stat Malignant neoplasm of transverse colon Expected: 10/19/2021, Expires: 10/05/2022 [facility]A Lab Routine Malignant neoplasm of transverse colon Expected: 10/19/2021, Expires: 10/05/2022 documented as of this encounter Visit Diagnoses Diagnosis Malignant neoplasm of transverse colon- Primary documented in this encounter Care Teams Top Dyeing Machine Loader Relationship Specialty Start Date End Date Cornelio Rayo DO [address] [facility] [address] [place] [address] PCP - General Internal Medicine 03/08/21 09/11/22 documented as of this encounter
--- OUTSIDE RECORDS SUMMARY | 2024-05-06 09:03 | XMS_ITS | Encounter Summary ---
Author Organization [facility] [employer] [facility] Address [address] [place] [address] Care Team Providers Care Front End Developer Designer Name Role Phone Cornelio Rayo DO Primary Care Provider [phone] Encounter Details Date Type Department Care Team (Late Contact Info) Description 09/13/2021 Orders Only [facility] Oncology and Hematology [facility] [address] [place] [address] Yosef Salmeron MD [address] [facility] [employer] [address] [place] [address] Malignant neoplasm of transverse colon; [...] (Late Contact Info) Description 06/13/2024 10:15 AM LOCOMOTIVE ENGINEER Office Visit [facility] Oncology and Hematology [facility] [address] [place] [address] Yosef Salmeron MD [address] [facility] [address] [place] [address] documented as of this encounter Visit Diagnoses Diagnosis Malignant neoplasm of transverse colon Chronic anemia Anemia, unspecified documented in this encounter Care Teams Front End Developer Designer Relationship Specialty Start Date End Date Cornelio Rayo DO [address] [facility] [address] [place] [address] PCP - General Internal Medicine 03/08/21 09/11/22 documented as of this encounter
--- OUTSIDE RECORDS SUMMARY | 2024-05-06 09:03 | XMS_ITS | Encounter Summary ---
Author Organization [facility] Address [address] [facility] Attn: Epic Prelude ADT [place] [address] Care Team Providers Care Python Java Developer Name Role Phone Cornelio Rayo DO Primary Care Provider [phone] Encounter Details Date Type Department Care Team (Latest Contact Info) Description 10/05/2021 Travel Social History Tobacco Use Types Packs/Day [...] st Contact Info) Description 06/13/2024 10:15 AM STEEL ROD BUSTER Office Visit [facility] Oncology and Hematology - [place] [address] [facility] [address] [place] [address] Yosef Salmeron MD [address] [facility] [address] [place] [address] documented as of this encounter Visit Diagnoses Not on filedocumented in this encounter Care Teams Python Java Developer Relationship Specialty Start Date End Date Cornelio Rayo DO [address] [facility] [address] [facility] [address] [place] [address] PCP - General Internal Medicine 03/08/21 09/11/22 documented as of this encounter
--- OUTSIDE RECORDS SUMMARY | 2024-05-06 09:03 | XMS_ITS | Encounter Summary ---
Author Organization [facility] CARLOS EDUARDOSanguine [facility] Address [address] [place] [address] Care Team Providers Care Airplane Refueler Name Role Phone Perri Cornelio L Primary Care Provider [phone] Reason for Referral * CT Scan (Routine) - Closed Specialty Diagnoses / Procedures Referred By Sandy t Referred To Contact Diagnoses Malignant neoplasm of transverse colon Procedures CT ABDOMEN PELVIS W CONTRAST Yosef Salmeron MD [address] [employer] [address] [place] [address] [place] [address] Referral ID Status Reason Start Date Expiration Date V isits Requested Visits Authorized [id number] Closed [facility] CTS 11/30/2021 01/28/2022 1 1 Reason for Visit * Reason Comments Chemotherapy 2 week f/u with labs and Tx Encounter Details Date Type Department Care Team (Late st Contact Info) Description 10/19/2021 11:15 AM CDT Office Visit [facility] Oncology and Hematology [place] [address] [place] [address] Yosef Salmeron MD [address] [place] [address] Malignant neoplasm of transverse colon [...] Sign Reading Time Taken Comments Blood Pressure 142/88 10/19/2021 11:27 AM CDT Pulse 86 10/19/2021 11:27 AM CDT Temperature 36.9 ??C (98.5 ??F) 10/19/2021 1 1:27 AM CDT Respiratory Rate - - Oxygen Saturation 98% 10/19/2021 11: 27 AM CDT Inhaled Oxygen Concentration - - Weight 111.3 kg (245 lb 6.4 oz) 022 11:27 AM CDT Height 170.2 cm (5' 7 ) 10/19/2021 11:2 7 AM CDT Body Mass Index 38.44 10/19/2021 11:27 AM CDT documented in this encounter Progress Notes * Yosef Salmeron MD - 10/19/2021 2:37 PM CDT HEMATOLOGY / ONCOLOGY PROGRESS [...] came into the office for follow-up visit in the last chemotherapy treatment. She has stableneuropathy. She does have some constipation. Denies any other new complaints. Review [...] arthralgia Neurological: denies blurry or disturbed vision, neuropathy remains stable skin: No lumps, bumps orrashes. 12 point review system was reviewed and [...] 3.2 hemoglobin 11.5 platelet 114,000 creatinine 0.8 Assessment: Plan: Patient Active Problem [...] stable. She will proceed with chemotherapy cycle #12/12 with 25% dose reduction today. I will order CT chest abdomen and pelvis in 2 months. Follow-up with me in 2 months. Anemia. Hemoglobin is stable. Continue iron with vitamin C and vitamin B12. Leukopenia. Labs noted. Proceed with chemotherapy with 25% dose reduction. Chemotherapy-induced neuropathy. Stable. TOBACCO COUNSELING She is not a tobacco user. . 10/19/2021 Yosef Salmeron MD documented in this encounter Plan of Treatment Upcoming Encounters Date Type Department Care Team (Late st Contact Info) Description 06/13/2024 10:15 AM SYNTHETIC CLOTH BINDING CUTTER Office Visit [facility] Oncology and Hematology [facility] [address] [facility] [place] [facility] [address] [place] [address] Yosef Salmeron MD [address] [facility] [address] [place] [address] Scheduled Orders Name Type Priority Associated Diagnoses Orde r Schedule COMPREHENSIVE METABOLIC PANEL Lab Stat Malignant neoplasm of transverse colon Expected: 12/14/2021, Expires: 10/19/2022 CEA Lab Routine Malignant neoplasm of transverse colon Expected: 12/14/2021, Expires: 10/19/2022 CT ABDOMEN PELVIS W CONTRAST Imaging Routine Malignant neoplasm of transverse colon Expected: 12/07/2021, Expires: 10/19/2022 documented as of this encounter Visit Diagnoses Diagnosis Malignant neoplasm of transverse colon- Primary documented in this encounter Care Teams Airplane Refueler Relationship Specialty Start Date End Date Cornelio Rayo DO [address] [facility] 162 [facility] [address] [place] [address] PCP - General Internal Medicine 03/08/21 09/11/22 documented as of this encounter
--- OUTSIDE RECORDS SUMMARY | 2024-05-06 09:03 | XMS_ITS | Encounter Summary ---
Author Organization [facility] [employer] [facility] Address [address] [place] [address] Care Team Providers Care Reporter Name Role Phone Cornelio Rayo DO Primary Care Provider [phone] Encounter Details Date Type Department Care Team (Late Contact Info) Description 10/04/2021 Orders Only [facility] Oncology and Hematology [place] [address] [place] [address] Yosef Salmeron MD [address] [facility] [employer] [address] [place] [address] Malignant neoplasm of transverse colon [...] (Late Contact Info) Description 06/13/2024 10:15 AM MANAGER HIV Office Visit [facility] Oncology and Hematology [place] [address] [place] [address] Yosef Salmeron MD [address] [facility] [address] [place] [address] documented as of this encounter Visit Diagnoses Diagnosis Malignant neoplasm of transverse colon documented in this encounter Care Teams Reporter Relationship Specialty Start Date End Date Cornelio Rayo DO [address] [facility] [address] [place] [address] PCP - General Internal Medicine 03/08/21 09/11/22 documented as of this encounter
--- OUTSIDE RECORDS SUMMARY | 2024-05-06 09:03 | XMS_ITS | Encounter Summary ---
Author Organization [facility] Address [address] [facility] Attn: Epic Prelude ADT [place] [address] Care Team Providers Care Continuity Coordinator Name Role Phone Cornelio Rayo DO Primary Care Provider [phone] Encounter Details Date Type Department Care Team (Latest Contact Info) Description 08/31/2021 Travel Social History Tobacco Use Types Packs/Day [...] st Contact Info) Description 06/13/2024 10:15 AM CANDLE WICKER Office Visit [facility] Oncology and Hematology - [place] [address] [facility] [address] [place] [address] Yosef Salmeron MD [address] [facility] [address] [place] [address] documented as of this encounter Visit Diagnoses Not on filedocumented in this encounter Care Teams Continuity Coordinator Relationship Specialty Start Date End Date Cornelio Rayo DO [address] [facility] 162 [facility] [address] [place] [address] PCP - General Internal Medicine 03/08/21 09/11/22 documented as of this encounter
--- OUTSIDE RECORDS SUMMARY | 2024-05-06 09:03 | XMS_ITS | Encounter Summary ---
Author Organization [facility]ON[facility] Address [address] [place] [address] Care Team Providers Care Electronics Supervisor Name Role Phone Cornelio Rayo Primary Care Provider [phone] Reason for Visit * Reason Onset Date Comments Urinary Pain 09/28/2021 Encounter Details Date Type Department Care Team (Late st Contact Info) Description 09/28/2021 Telephone [facility] Oncology and Hematology - [place] [address] [facility] [address] [place] [address] Yosef Salmeron MD [address] [facility] [address] [place] [address] Urinary Pain Social History Tobacco Use Types Packs/Day Years [...] Telephone Encounter - Yao Mann RN - 09/28/2021 9:06 AM CDT Pt called in yesterday (09/27/21) stating that she had been seen by Dr. Rayo for UTI symptoms. Dr. Rayo did a urine dip in the office. Results were questionable for UTI. Dr. Barksdale office sent urinefor C&S. Dr. Rayo also ordered Macrobid 100mg for pt to start. Pt called concerned about having her treatment on 09/28/21 d/t possible infection. This RN spoke with Dr. Salmeron in regards to this. He stated that he did not feel comfortable treated her with a possible UTI so he asked to hold her treatment for 1 week. This RN spoke with Alyssa at the infusion center and we coordinated and rescheduled pts treatment and office visit with Dr. Salmeron. TC to pt. PT verbalizes understanding. documented in this encounter Plan of Treatment Upcoming Encounters Date Type Department Care Team (Late st Contact Info) Description 06/13/2024 10:15 AM TAX LAWYER Office Visit [facility] Oncology and Hematology - [place] [address] [place] [address] [address] [place] [address] Yosef Salmeron MD [address] [facility] [address] [place] [address] documented as of this encounter Visit Diagnoses Not on filedocumented in this encounter Care Teams Electronics Supervisor Relationship Specialty Start Date End Date Cornelio Rayo DO [address] [facility] [address] [place] [address] PCP - General Internal Medicine 03/08/21 09/11/22 documented as of this encounter
--- OUTSIDE RECORDS SUMMARY | 2024-05-06 09:03 | XMS_ITS | Encounter Summary ---
Author Organization [facility] Address [address] [place] [address] Care Team Providers Care Master Chef Name Role Phone Cornelio Rayo DO Primary Care Provider [phone] Encounter Details Date Type Department Care Team (Late Contact Info) Description 08/31/2021 Orders Only [facility] Oncology and Hematology [facility] [address] [place] [address] Clover Elise Malignant neoplasm of [...] (Late Contact Info) Description 06/13/2024 10:15 AM AGRICULTURAL RESEARCHER Office Visit [facility] Oncology and Hematology [facility] [address] [place] [address] Yosef Salmeron MD [address] [facility] [address] [place] [address] documented as of this encounter Visit Diagnoses Diagnosis Malignant neoplasm of transverse colon documented in this encounter Care Teams Master Chef Relationship Specialty Start Date End Date Cornelio Rayo DO [address] [facility] 162 [facility] [address] [place] [address] PCP - General Internal Medicine 03/08/21 09/11/22 documented as of this encounter
--- OUTSIDE RECORDS SUMMARY | 2024-05-06 09:04 | XMS_ITS | Encounter Summary ---
Author Organization [facility] Address [address] [place] [address] Care Team Providers Care Mud Grinder Name Role Phone Cornelio Rayo DO Primary Care Provider [phone] Encounter Details Date Type Department Care Team (Late Contact Info) Description 08/01/2021 Abstract [facility] Oncology and Hematology [facility] [address] [place] [address] Cornelio Rayo DO [address] [facility] [address] [place] [address] Social History Tobacco Use Types Packs/Day Years [...] have Coronavirus / COVID-19? No / Unsure 07/20/2021 8:31 AM CDT documented as of this encounter Plan of Treatment Upcoming Encounters Date Type Department Care Team (Late Contact Info) Description 06/13/2024 10:15 AM IT GENERALIST Office Visit [facility] On[facility] [address] [place] [address] Yosef Salmeron MD [address] [facility] [address] [place] [address] documented as of this encounter Visit Diagnoses Not on filedocumented in this encounter Care Teams Mud Grinder Relationship Specialty Start Date End Date Cornelio Rayo DO [address] [facility] [address] [place] [address] PCP - General Internal Medicine 03/08/21 09/11/22 documented as of this encounter
--- OUTSIDE RECORDS SUMMARY | 2024-05-06 09:04 | XMS_ITS | Encounter Summary ---
Author Organization [facility] [employer] [facility] Address [address] [place] [address] Care Team Providers Care Salesperson Yard Goods Name Role Phone Cornelio Rayo DO Primary Care Provider [phone] Encounter Details Date Type Department Care Team ([facility] Contact Info) Description 08/02/2021 Orders Only [facility] Oncology and Hematology [facility] [address] [place] [address] Yosef Salmeron MD [address] [employer] [address] [place] [address] Lung nodule Social History Tobacco Use Types Packs/Day Years [...] have Coronavirus / COVID-19? No / Unsure 08/03/2021 8:31 AM CDT documented as of this encounter Plan of Treatment Upcoming Encounters Date Type Department Care Team (Late Contact Info) Description 06/13/2024 10:15 AM HOUSING INSTALLER Office Visit [facility] Oncology and Hematology [place] [address] [place] [address] Yosef Salmeron MD [address] [facility] [address] [place] [address] documented as of this encounter Visit Diagnoses Diagnosis Lung nodule Solitary pulmonary nodule documented in this encounter Care Teams Salesperson Yard Goods Relationship Specialty Start Date End Date Cornelio Rayo DO [address] [facility] [address] [place] [address] PCP - General Internal Medicine 03/08/21 09/11/22 documented as of this encounter
--- OUTSIDE RECORDS SUMMARY | 2024-05-06 09:04 | XMS_ITS | Encounter Summary ---
Author Organization [facility] [employer] [facility] Address [address] [place] [address] Care Team Providers Care Commercial Lawn Specialist Name Role Phone Cornelio Rayo DO Primary Care Provider [phone] Encounter Details Date Type Department Care Team (Late Contact Info) Description 07/12/2021 Orders Only [facility] Oncology and Hematology - [place] [address] [place] [address] Yosef Salmeron MD [address] [facility] [employer] [address] [place] [address] Malignant neoplasm of transverse colon [...] have Coronavirus / COVID-19? No / Unsure 07/06/2021 8:35 AM CLOTH TRIMMER HAND documented as of this encounter Plan of Treatment Upcoming Encounters Date Type Department Care Team (Late Contact Info) Description 06/13/2024 10:15 AM CLOTH TRIMMER HAND Office Visit [facility] Oncology and Hematology - [place] [address] [place] [address] Yosef Salmeron MD [address] [facility] [address] [place] [address] documented as of this encounter Visit Diagnoses Diagnosis Malignant neoplasm of transverse colon documented in this encounter Care Teams Commercial Lawn Specialist Relationship Specialty Start Date End Date Cornelio Rayo DO 68[address] [facility] 162 [facility] [address] [place] [address] PCP - General Internal Medicine 03/08/21 09/11/22 documented as of this encounter
--- OUTSIDE RECORDS SUMMARY | 2024-05-06 09:04 | XMS_ITS | Encounter Summary ---
Author Organization [facility] [employer] [facility] Address [address] [place] [address] Care Team Providers Care Portable Canteen Operator Name Role Phone Cornelio Rayo DO Primary Care Provider [phone] Encounter Details Date Type Department Care Team ([facility] Contact Info) Description 06/29/2021 Orders Only [facility] Oncology and Hematology [facility] [address] [place] [address] Connie Mix Chronic anemia; Malignant neoplasm of transverse colon Social History [...] have Coronavirus / COVID-19? No / Unsure 06/22/2021 8:36 AM ASSISTANT ASSOCIATE FULL PROFESSOR documented as of this encounter Plan of Treatment Upcoming Encounters Date Type Department Care Team (Late Contact Info) Description 06/13/2024 10:15 AM ASSISTANT ASSOCIATE FULL PROFESSOR Office Visit [facility] Oncology and Hematology [facility] [address] [place] [address] Yosef Salmeron MD [address] [facility] [address] [place] [address] documented as of this encounter Visit Diagnoses Diagnosis Chronic anemia Anemia, unspecified Malignant neoplasm of transverse colon documented in this encounter Care Teams Portable Canteen Operator Relationship Specialty Start Date End Date Cornelio Rayo DO [address] [facility] 162 [facility] [address] [place] [address] PCP - General Internal Medicine 03/08/21 09/11/22 documented as of this encounter
--- OUTSIDE RECORDS SUMMARY | 2024-05-06 09:04 | XMS_ITS | Encounter Summary ---
Author Organization [facility] Address [address] Attn: Epic Prelude ADT OLLIE HERRMANN [address] Care Team Providers Care Fish Seiner Name Role Phone Cornelio Rayo DO Primary Care Provider [phone] Encounter Details Date Type Department Care Team (Latest Contact Info) Description 08/17/2021 Travel Social History Tobacco Use Types Packs/Day [...] st Contact Info) Description 06/13/2024 10:15 AM LOAN COUNSELOR Office Visit [facility] Oncology and Hematology - [place] [address] [facility] [address] [place] [address] Yosef Salmeron MD [address] [facility] [address] [place] [address] documented as of this encounter Visit Diagnoses Not on filedocumented in this encounter Care Teams Fish Seiner Relationship Specialty Start Date End Date Cornelio Rayo DO 6812 [facility] 162 [facility] [address] [place] [address] PCP - General Internal Medicine 03/08/21 09/11/22 documented as of this encounter
--- OUTSIDE RECORDS SUMMARY | 2024-05-06 09:04 | XMS_ITS | Encounter Summary ---
Author Organization [facility] CARLOS EDUARDOSxbbm [facility] Address [address] [place] [address] Care Team Providers Care Assistant Press Operator Name Role Phone Cornelio Rayo DO Primary Care Provider [phone] Reason for Visit * Reason Comments Chemotherapy 2 week f/u with labs and CT Encounter Details Date Type Department Care Team (Late st Contact Info) Description 08/17/2021 8:30 AM CDT Office Visit [facility] Oncology and Hematology - [place] [address] [place] [address] [facility] 200 [place] [address] Yosef Salmeron MD [address] [facility] [address] [place] [address] Malignant neoplasm of transverse colon [...] Sign Reading Time Taken Comments Blood Pressure 147/93 08/17/2021 8:45 AM CDT Pulse 86 08/17/2021 8:45 AM CDT Temperature 36.6 ??C (97.9 ??F) 08/17/2021 8:45 AM CD T Respiratory Rate - - Oxygen Saturation 98% 08/17/2021 8:45 AM CDT Inhaled Oxygen Concentration - - Weight 106.2 kg (234 lb 1.6 oz) 08/17/2021 8:45 AM CDT Height 170.2 cm (5' 7 ) 08/17/2021 8:45 AM CDT Body Mass Index 36.67 08/17/2021 8:45 AM CDT documented in this encounter Progress Notes * Yosef Salmeron MD - 08/17/2021 10:35 AM CDT HEMATOLOGY / ONCOLOGY PROGRESS NOTE [...] has been tolerating treatment well other than neuropathy which is lasting longer. Some sinus congestion. Denies any diarrhea but does have some constipation. No other new complaints. Review of system Constitutional: denies fevers, sweats, complain of mild tiredness and fatigue HEENT: denies sinus congestion, hearing or vision problems Respiratory: denies cough, dyspnea, wheeze Cardiovascular: denies chest pain, exertional chest pressure/discomfort, nausea, syncope, shortnessof breath GI: denies dsyphagia, reflux symptoms, vomiting, melena, complain of constipation : denies dysuria, frequency, incontinence, urgency Integumentary system: no lymphadenopathy, sweats, flushing Musculoskeletal: denies: myalgia, arthralgia Neurological: denies blurry or disturbed vision, complain of upper and lower extremity neuropathy skin: No lumps, bumps or rashes. [...] 11.5 platelet 95,000 ANC 1000 creatinine 0.7 Assessment: Plan: Patient Active Problem List Diagnosis [...] chemotherapy with FOLFOX in 04/26/2021. Labs noted. She is tolerating treatment well other than neuropathy which is lasting longer. I will reduce chemotherapy dose by 15%. She will proceed with cycle #8 of chemotherapy today. Follow-up in 2 weeks. Anemia. Hemoglobin is stable. Continue iron along with vitamin C and B12. Leukopenia. ANC stable. Continue chemotherapy with dose reduction. History of right middle lobe lung nodule. CT chest done on July 30 showed no acute abnormalities. TOBACCO COUNSELING She is not a tobacco user. . 08/17/2021 Yosef Salmeron MD documented in this encounter Plan of Treatment Upcoming Encounters Date Type Department Care Team (Late st Contact Info) Description 06/13/2024 10:15 AM BUS DRIVER SUPERVISOR Office Visit [facility] Oncology and Hematology [facility] [address] [facility] 200 [place] [address] Yosef Salmeron MD [address] [facility] [address] [place] [address] Scheduled Orders Name Type Priority Associated Diagnoses Orde r Schedule COMPREHENSIVE METABOLIC PANEL Lab Stat Malignant neoplasm of transverse colon Expected: 08/31/2021, Expires: 08/17/2022 CBC WITH DIFFERENTIAL Lab Stat Malignant neoplasm of transverse colon Expected: 08/31/2021, Expires: 08/17/2022 documented as of this encounter Visit Diagnoses Diagnosis Malignant neoplasm of transverse colon- Primary documented in this encounter Care Teams Assistant Press Operator Relationship Specialty Start Date End Date Cornelio Rayo DO [address] [facility] [address] [place] [address] PCP - General Internal Medicine 03/08/21 09/11/22 documented as of this encounter
--- OUTSIDE RECORDS SUMMARY | 2024-05-06 09:04 | XMS_ITS | Encounter Summary ---
Author Organization [facility] Address [address] [facility] Attn: Epic Prelude ADT OLLIE HERRMANN [address] Care Team Providers Care Certified Composites Technician Name Role Phone Cornelio Rayo DO Primary Care Provider Encounter Details Date Type Department Care Team (Latest Contact Info) Description 07/06/2021 Travel Social History Tobacco Use Types Packs/Day [...] COVID-19? No / Unsure 07/06/2021 8:35 AM CRANBERRY BOG SUPERVISOR documented as of this encounter Plan of Treatment Upcoming Encounters Date Type Department Care Team (Late st Contact Info) Description 06/13/2024 10:15 AM CRANBERRY BOG SUPERVISOR Office Visit [facility] Oncology and Hematology - [place]ym[place] [address] [facility] [place] [address] Yosef Salmeron MD [address] [facility] [address] [place] [address] documented as of this encounter Visit Diagnoses Not on filedocumented in this encounter Care Teams Certified Composites Technician Relationship Specialty Start Date End Date Cornelio Rayo DO 6812 [facility] [address] [facility] 204 [place] [address] PCP - General Internal Medicine 03/08/21 09/11/22 documented as of this encounter
--- OUTSIDE RECORDS SUMMARY | 2024-05-06 09:04 | XMS_ITS | Encounter Summary ---
Author Organization [facility] Address [address] [place] [address] Care Team Providers Care Transitional Care Manager Name Role Phone Cornelio Rayo DO Primary Care Provider Encounter Details Date Type Department Care Team (Late Contact Info) Description 08/09/2021 Orders Only [facility] Oncology and Hematology - [place] [address] [place] [address] Yosef Salmeron MD [address] [facility] [employer] [address] [place] [address] Malignant neoplasm of transverse colon [...] (Late Contact Info) Description 06/13/2024 10:15 AM ASBESTOS WORKER HELPER Office Visit [facility] Oncology and Hematology - [place] [address] [place] [address] Yosef Salmeron MD [address] [facility] [address] [place] [address] documented as of this encounter Visit Diagnoses Diagnosis Malignant neoplasm of transverse colon documented in this encounter Care Teams Transitional Care Manager Relationship Specialty Start Date End Date Cornelio Rayo DO 6812 [facility] 162 [facility] 204 [place] [address] PCP - General Internal Medicine 03/08/21 09/11/22 documented as of this encounter
--- OUTSIDE RECORDS SUMMARY | 2024-05-06 09:04 | XMS_ITS | Encounter Summary ---
Author Organization [facility] CARLOS EDUARDOFanear [facility] Address [address] [place] [address] Care Team Providers Care Agricultural Chemicals Inspector Name Role Phone Cornelio Rayo DO Primary Care Provider [phone] Reason for Visit * Reason Comments Chemotherapy 2 week f/u with CT a nd Tx Encounter Details Date Type Department Care Team (Late st Contact Info) Description 08/03/2021 8:30 AM CDT Office Visit [facility] Oncology and Hematology - [place]ym[place] [address] [place] [address] Kenneth Carney MD [address] [place] [address] Malignant neoplasm of transverse colon [...] Sign Reading Time Taken Comments Blood Pressure 158/89 08/03/2021 8:39 AM CDT Pulse 90 08/03/2021 8:39 AM CDT Temperature 36.6 ??C (97.9 ??F) 08/03/2021 8:39 AM CD T Respiratory Rate - - Oxygen Saturation 98% 08/03/2021 8:39 AM CDT Inhaled Oxygen Concentration - - Weight 104.8 kg (231 lb) 08/03/2021 8:39 AM CDT Height 170.2 cm (5' 7 ) 08/03/2021 8:39 AM CDT Body Mass Index 36.18 08/03/2021 8:39 AM CDT documented in this encounter Progress Notes * Kenneth Carney MD - 08/03/2021 1:11 PM CDT HEMATOLOGY / ONCOLOGY PROGRESS NOTE Patient Identification: Name: Mary Earl Age: 51 y.o. 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 ??Metastatic carcinoma in 1 out of 33 lymph node. ??Margins free of tumor. ??Status post large bowel, splenic flexure resection done on 2020. ?? CURRENT TREATMENT Adjuvant chemotherapy with FOLFOX started 04/26/2021 ?? TREATMENT HISTORY SUBJECTIVE Patient comes in for further adjuvant therapy with FOLFOX she has some nausea and neuropathy however this is stable She has no other further complaints CT scan of the chest that was done for a finding on chest x-ray showed only 7 mm and lymph node in the minor fissure Review of system Constitutional: denies fevers, sweats, fatigue, malaise, weight loss HEENT: denies sinus congestion, hearing or vision problems Respiratory: denies cough, dyspnea, wheeze Cardiovascular: denies chest pain, exertional chest pressure/discomfort, nausea, syncope, shortnessof breath GI: denies constipation, diarrhea, dsyphagia, reflux symptoms, vomiting, melena : denies dysuria, frequency, incontinence, urgency Integumentary system: no lymphadenopathy, sweats, flushing Musculoskeletal: denies: myalgia, arthralgia Neurological: denies blurry or disturbed vision, numbness/weakness, dizziness Skin: No lumps, bumps or rashes. Objective: Vital signs in last 24 hours: [...] No lymphadenopathy Neuro: No obvious focal deficit PATH LABS White count 3.1 with a 39% neutrophils for absolute for count of 1.2 Her platelet count is 1 21,000 hemoglobin 12.1 Assessment: Plan: Patient Active Problem List Diagnosis Date Noted ??? Malignant neoplasm of transverse colon ??? Colonic mass ??? Liver lesion ??? Acute colitis ??? Abdominal pain 03/08/2021 ??? 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 ??Metastatic carcinoma in 1 out of 33 lymph node. ??Margins free of tumor. ??Status post large bowel, splenic flexure resection done on 2020. ?? Patient is started adjuvant chemotherapy with FOLFOX in 04/26/2021. ?? Labs noted. WBC slightly down. ANC stable. We will proceed with cycle #6 of chemotherapy today. Sheis tolerating treatment well other than some expected side effects. We also discussed dose reduction possibly next treatment. ?? Anemia. Hemoglobin has improved. Continue iron along with vitamin C and B12. ?? Leukopenia. Stable. ?? Continued neoadjuvant therapy ? TOBACCO COUNSELING Patient is a non-smoker 08/03/2021 This note was transcribed using [employer] speaking computerized voice recognition without a human wire stitcher operator. This report may or may not have been adjusted for typographical, grammaticaland syntax errors. Kenneth Carney MD documented in this encounter Plan of Treatment Upcoming Encounters Date Type Department Care Team (Late st Contact Info) Description 06/13/2024 10:15 AM CENTERLESS GRINDER SET UP OPERATOR Office Visit [facility] Oncology and Hematology [facility] [address] [facility] 200 [place] [address] Yosef Salmeron MD [address] [facility] [address] [place] [address] documented as of this encounter Visit Diagnoses Diagnosis Malignant neoplasm of transverse colon- Primary documented in this encounter Care Teams Agricultural Chemicals Inspector Relationship Specialty Start Date End Date Cornelio Rayo DO [address] [facility] [address] [place] [address] PCP - General Internal Medicine 03/08/21 09/11/22 documented as of this encounter
--- OUTSIDE RECORDS SUMMARY | 2024-05-06 09:04 | XMS_ITS | Encounter Summary ---
Author Organization [facility]3] [employer] [facility] Address [address] [place] [address] Care Team Providers Care Assembly And Packing Supervisor Name Role Phone Cornelio Rayo DO Primary Care Provider [phone] Encounter Details Date Type Department Care Team ([facility] Contact Info) Description 07/26/2021 Orders Only [facility] Oncology and Hematology - [place]ym[place] [address] [place] [address] Yosef Salmeron MD [address] [facility] [employer] [address] [place] [address] Malignant neoplasm of transverse colon [...] Info) Description 06/13/2024 10:15 AM LOCOMOTIVE ENGINEER ELECTRIC Office Visit [facility] Oncology and Hematology - [place] [address] [place] [address] Yosef Salmeron MD [address] [facility] [address] [place] [address] documented as of this encounter Visit Diagnoses Diagnosis Malignant neoplasm of transverse colon documented in this encounter Care Teams Assembly And Packing Supervisor Relationship Specialty Start Date End Date Cornelio Rayo DO 6812 [facility] 162 [facility] 204 [place] [address] PCP - General Internal Medicine 03/08/21 09/11/22 documented as of this encounter
--- OUTSIDE RECORDS SUMMARY | 2024-05-06 09:04 | XMS_ITS | Encounter Summary ---
Author Organization [facility] [employer]ERRONG[employer] [facility] Address [address] [place] [address] Care Team Providers Care Novelty Twister Tender Name Role Phone Cornelio Rayo DO Primary Care Provider [phone] Reason for Visit * Reason Onset Date Comments Medication Review 07/23/2021 Pt called in a sking if it is ok to take amlodipine with her current chemo treatment. Dr. Salmeron states that amlodipine is ok to take with current chemo treatment Encounter Details Date Type Department Care Team (Late st Contact Info) Description 07/23/2021 Telephone [facility] Oncology and Hematology - [place] [address] [place] [address] [address] [place] [address] [place] [address] [address] [place] [address] Medication Review (Pt called in asking if it is ok to take amlodipine with her current chemo treatment. Dr. Salmeron states that amlodipine is ok to take with current chemo treatment) Social History Tobacco Use Types Packs/Day Years [...] Telephone Encounter - Yao Mann RN - 07/23/2021 11:57 AM CDT Pt called in asking if it is ok to take amlodipine with her current chemo treatment. Dr. Salmeron states that amlodipine is ok to take with current chemo treatment documented in this encounter Plan of Treatment Upcoming Encounters Date Type Department Care Team (Late st Contact Info) Description 06/13/2024 10:15 AM WHITE SOURER Office Visit [facility] Oncology and Hematology - [place] [address] [facility] [facility] [address] [place] [address] Yosef Salmeron MD [address] [facility] [address] [place] [address] documented as of this encounter Visit Diagnoses Not on filedocumented in this encounter Care Teams Novelty Twister Tender Relationship Specialty Start Date End Date Cornelio Rayo DO [address] [place] [address] PCP - General Internal Medicine 03/08/21 09/11/22 documented as of this encounter
--- OUTSIDE RECORDS SUMMARY | 2024-05-06 09:04 | XMS_ITS | Encounter Summary ---
Author Organization [facility] CARLOS EDUARDOTap [employer] [facility] Address [address] [place] [address] Care Team Providers Care Certified Medical Dosimetrist Name Role Phone Cornelio Rayo Primary Care Provider [phone] Reason for Referral * CT Scan (Routine) - Closed Specialty Diagnoses / Procedures Referred By [place] Referred To Contact Diagnoses Lung nodule Procedures CT CHEST W CONTRAST Yosef Salmeron MD [address] [facility] [address] [place] [address] [place] [address] Referral ID Status Reason Start Date Expiration Date V isits Requested Visits Authorized [id number] Closed [facility] CTS 07/20/2021 09/17/2021 1 1 Reason for Visit * Reason Comments Chemotherapy 2 week f/u with labs and tx Encounter Details Date Type Department Care Team (Late st Contact Info) Description 07/20/2021 8:30 AM CDT Office Visit [facility] Oncology and Hematology [address] [facility] 200 [place] [address] Yosef Salmeron MD [address] [facility] [address] [place] [address] Lung nodule (Primary Dx); Malignant neoplasm of transverse colon Social History [...] Sign Reading Time Taken Comments Blood Pressure 155/93 07/20/2021 8:38 AM CDT Pulse 76 07/20/2021 8:38 AM CDT Temperature 37.1 ??C (98.8 ??F) 07/20/2021 8:38 AM CD T Respiratory Rate - - Oxygen Saturation 98% 07/20/2021 8:38 AM CDT Inhaled Oxygen Concentration - - Weight 104.4 kg (230 lb 3.2 oz) 07/20/2021 8:38 AM CDT Height 170.2 cm (5' 7 ) 07/20/2021 8:38 AM CDT Body Mass Index 36.05 07/20/2021 8:38 AM CDT documented in this encounter Progress Notes * Yosef Salmeron MD - 07/20/2021 8:57 AM CDT HEMATOLOGY / ONCOLOGY PROGRESS NOTE [...] came into the office for follow-up visit. 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 She has some mild sore and numbness. Also complains of bilateral axillary itching without any rash. No other new complaints. Review of system Constitutional: denies fevers, sweats, mild tiredness and fatigue HEENT: denies sinus congestion, hearing or vision problems Respiratory: denies cough, dyspnea, wheeze Cardiovascular: denies chest pain, exertional chest pressure/discomfort, nausea, syncope, shortnessof breath GI: denies dsyphagia, reflux symptoms, vomiting, melena, complain of constipation : denies dysuria, frequency, incontinence, urgency Integumentary system: no lymphadenopathy, sweats, flushing Musculoskeletal: denies: myalgia, arthralgia Neurological: denies blurry or disturbed vision, neuropathy in the upper and lower extremity lasting longer Skin: No lumps, bumps or rashes. 12 [...] 2.9 hemoglobin 11.7 platelet 121,000 creatinine 0.8 Assessment: Plan: Patient Active Problem [...] chemotherapy with FOLFOX in 04/26/2021. Labs noted. WBC slightly down. ANC stable. We will proceed with cycle #6 of chemotherapy today. Sheis tolerating treatment well other than some expected side effects. We also discussed dose reduction possibly next treatment. Anemia. Hemoglobin has improved. Continue iron along with vitamin C and B12. Leukopenia. Stable. Right middle lobe lung nodule. We will order CT chest in 1 week. TOBACCO COUNSELING She is not a tobacco user. . 07/20/2021 Yosef Salmeron MD documented in this encounter Plan of Treatment Upcoming Encounters Date Type Department Care Team (Late st Contact Info) Description 06/13/2024 10:15 AM BLOOD AND PLASMA LABORATORY ASSISTANT Office Visit [facility] Oncology and Hematology [facility] [address] [facility] 200 [place] [address] Yosef Salmeron MD [address] [facility] [address] [place] [address] Scheduled Orders Name Type Priority Associated Diagnoses Orde r Schedule CT CHEST W CONTRAST Imaging Routine Lung nodule Expected: 07/27/2021, Expires: 07/20/2022 BASIC METABOLIC PANEL Lab Stat Malignant neoplasm of transverse colon Expected: 08/03/2021, Expires: 07/20/2022 CBC WITH DIFFERENTIAL Lab Stat Malignant neoplasm of transverse colon Expected: 08/03/2021, Expires: 07/20/2022 documented as of this encounter Visit Diagnoses Diagnosis Lung nodule- Primary Solitary pulmonary nodule Malignant neoplasm of transverse colon documented in this encounter Care Teams Certified Medical Dosimetrist Relationship Specialty Start Date End Date Cornelio Rayo DO [address] [place] [address] PCP - General Internal Medicine 03/08/21 09/11/22 documented as of this encounter
--- OUTSIDE RECORDS SUMMARY | 2024-05-06 09:04 | XMS_ITS | Encounter Summary ---
Author Organization [facility] Address [address] [facility] Attn: Epic Prelude ADT OLLIE HERRMANN [address] Care Team Providers Care Actuarial Technician Name Role Phone Cornelio Rayo DO Primary Care Provider [phone] Encounter Details Date Type Department Care Team (Latest Contact Info) Description 07/20/2021 Travel Social History Tobacco Use Types Packs/Day [...] st Contact Info) Description 06/13/2024 10:15 AM PUBLICATIONS SALES REPRESENTATIVE Office Visit [facility] Oncology and Hematology - [place] [address] [facility] [address] [place] [address] Yosef Salmeron MD [address] [facility] [address] [place] [address] documented as of this encounter Visit Diagnoses Not on filedocumented in this encounter Care Teams Actuarial Technician Relationship Specialty Start Date End Date Cornelio Rayo DO 6812 [facility] 162 [facility] 204 [place] [address] PCP - General Internal Medicine 03/08/21 09/11/22 documented as of this encounter
--- OUTSIDE RECORDS SUMMARY | 2024-05-06 09:04 | XMS_ITS | Encounter Summary ---
Author Organization [facility] [employer] [facility] Address [address] [place] [address] Care Team Providers Care Securities Trader Name Role Phone Cornelio Rayo DO Primary Care Provider [phone] Encounter Details Date Type Department Care Team (Late Contact Info) Description 08/23/2021 Orders Only [facility] Oncology and Hematology - [place] [address] [place] [address] Yosef Salmeron MD [address] [facility] [employer] [address] [place] [address] Malignant neoplasm of transverse colon [...] (Late Contact Info) Description 06/13/2024 10:15 AM 7TH GRADE TEACHER Office Visit [facility] Oncology and Hematology - [place] [address] [place] [address] Yosef Salmeron MD [address] [facility] [address] [place] [address] documented as of this encounter Visit Diagnoses Diagnosis Malignant neoplasm of transverse colon documented in this encounter Care Teams Securities Trader Relationship Specialty Start Date End Date Cornelio Rayo DO [address] [facility] 162 [facility] 204 [place] [address] PCP - General Internal Medicine 03/08/21 09/11/22 documented as of this encounter
--- OUTSIDE RECORDS SUMMARY | 2024-05-06 09:04 | XMS_ITS | Encounter Summary ---
Author Organization [facility] Address [address] [facility] Attn: Epic Prelude ADT OLLIE HERRMANN [address] Care Team Providers Care Cdl Flatbed Truck Driver Name Role Phone Cornelio Rayo DO Primary Care Provider [phone] Encounter Details Date Type Department Care Team (Latest Contact Info) Description 08/03/2021 Travel Social History Tobacco Use Types Packs/Day [...] st Contact Info) Description 06/13/2024 10:15 AM PROGRAM SUPPORT ASSISTANT Office Visit [facility] Oncology and Hematology - [place] [address] [place] [address] Yosef Salmeron MD [address] [facility] [address] [place] [address] documented as of this encounter Visit Diagnoses Not on filedocumented in this encounter Care Teams Cdl Flatbed Truck Driver Relationship Specialty Start Date End Date Cornelio Rayo DO [address] [facility] [address] [facility] [[email or web address] [address] [place] [address] PCP - General Internal Medicine 03/08/21 09/11/22 documented as of this encounter
--- OUTSIDE RECORDS SUMMARY | 2024-05-06 09:04 | XMS_ITS | Encounter Summary ---
Author Organization [facility] [employer] [facility] Address [address] [place] [address] Care Team Providers Care Index Editor Name Role Phone Cornelio Rayo DO Primary Care Provider [phone] Encounter Details Date Type Department Care Team (Late Contact Info) Description 07/21/[address] [facility] Oncology and Hematology [place] [address] [place] [address] [place] Elise Social History Tobacco Use Types Packs/Day Years [...] (Late Contact Info) Description 06/13/2024 10:15 AM MENTAL HYGIENE CONSULTANT Office Visit [facility] Oncology and Hematology - [place] [address] [place] [address] Yosef Salmeron MD [address] [facility] [address] [place] [address] documented as of this encounter Visit Diagnoses Not on filedocumented in this encounter Care Teams Index Editor Relationship Specialty Start Date End Date Cornelio Rayo DO [address] [facility] 162 [facility] [address] [place] [address] PCP - General Internal Medicine 03/08/21 09/11/22 documented as of this encounter
--- OUTSIDE RECORDS SUMMARY | 2024-05-06 09:04 | XMS_ITS | Encounter Summary ---
Author Organization [facility] [employer] [facility] Address [address] [place] [address] Care Team Providers Care Hairspring Cutter Name Role Phone Cornelio Rayo DO Primary Care Provider [phone] Reason for Visit * Reason Comments Chemotherapy 2 week f/u with labs and Tx Encounter Details Date Type Department Care Team (Late st Contact Info) Description 07/06/2021 8:30 AM REMOTE COMPUTER TERMINAL OPERATOR Office Visit [facility] Oncology and Hematology - [place] [address] [place] [address] [facility] 200 [place] [address] Yosef Salmeron MD [address] [facility] [address] [place] [address] Malignant neoplasm of transverse colon [...] COVID-19? No / Unsure 07/06/2021 8:35 AM REMOTE COMPUTER TERMINAL OPERATOR documented as of this encounter Last Filed Vital Signs Vital Sign Reading Time Taken Comments Blood Pressure 153/88 07/06/2021 8:50 AM REMOTE COMPUTER TERMINAL OPERATOR Pulse 75 07/06/2021 8:50 AM REMOTE COMPUTER TERMINAL OPERATOR Temperature 36.7 ??C (98 ??F) 07/06/2021 8:50 AM REMOTE COMPUTER TERMINAL OPERATOR Respiratory Rate - - Oxygen Saturation 98% 07/06/2021 8:50 AM REMOTE COMPUTER TERMINAL OPERATOR Inhaled Oxygen Concentration - - Weight 104.7 kg (230 lb 14.4 oz) 07/06/2021 8:50 AM REMOTE COMPUTER TERMINAL OPERATOR Height 170.2 cm (5' 7 ) 07/06/2021 8:50 AM REMOTE COMPUTER TERMINAL OPERATOR Body Mass Index 36.16 07/06/2021 8:50 AM REMOTE COMPUTER TERMINAL OPERATOR documented in this encounter Progress Notes * Yosef Salmeron MD - 07/06/2021 9:28 AM CST HEMATOLOGY / ONCOLOGY PROGRESS NOTE Patient Identification: Name: aMry Earl Age: 51 y.o. Sex: female : [...] chemotherapy treatment. She has been tolerating treatment well. She is feeling much better after dental extraction. Denies any bleeding and bruising. Weight and appetite stable. No other new complaints. Review of system Constitutional: denies fevers, sweats, improvement in tiredness and fatigue HEENT: denies sinus congestion, hearing or vision problems Respiratory: denies cough, dyspnea, wheeze Cardiovascular: denies chest pain, exertional chest pressure/discomfort, nausea, syncope, shortnessof breath GI: denies dsyphagia, reflux symptoms, vomiting, melena, intermittent diarrhea and constipation :denies dysuria, frequency, incontinence, urgency Integumentary system: no lymphadenopathy, sweats, flushing Musculoskeletal: denies: myalgia, arthralgia Neurological: denies blurry or disturbed vision, neuropathy stable Skin: No lumps, bumps or rashes. 12 [...] 3.4 hemoglobin 11.1 platelet 126,000 creatinine 0.9 Assessment: Plan: Patient Active Problem List Diagnosis [...] with FOLFOX in 04/26/2021. Labs noted and stable with slight decline in WBC and platelet count. She will continue with chemotherapy cycle #5 today. She has been tolerating treatment well. I plan to see her back in 2 weeks. Anemia. Hemoglobin is stable. Continue iron along with vitamin C and B12. Leukopenia and neutropenia. WBC stable. Right middle lobe lung nodule. We will perform CT scan of the chest after cycle 6. TOBACCO COUNSELING She is not a tobacco user. . 07/06/2021 Yosef Salmeron MD TE COMPUTER TERMINAL OPERATOR documented in this encounter Plan of Treatment Upcoming Encounters Date Type Department Care Team (Late st Contact Info) Description 06/13/2024 10:15 AM REMOTE COMPUTER TERMINAL OPERATOR Office Visit [facility] [place] [facility] Oncology and Hematology - [place] [address] [facility] 200 [place] [address] Yosef Salmeron MD [address] [facility] [address] [place] [address] Scheduled Orders Name Type Priority Associated Diagnoses Orde r Schedule BASIC METABOLIC PANEL Lab Stat Malignant neoplasm of transverse colon Expected: 07/20/2021, Expires: 07/06/2022 CBC WITH DIFFERENTIAL Lab Stat Malignant neoplasm of transverse colon Expected: 07/20/2021, Expires: 07/06/2022 documented as of this encounter Visit Diagnoses Diagnosis Malignant neoplasm of transverse colon- Primary documented in this encounter Care Teams Hairspring Cutter Relationship Specialty Start Date End Date Cornelio Rayo DO [address] [facility] [address] [place] [address] PCP - General Internal Medicine 03/08/21 09/11/22 documented as of this encounter
--- OUTSIDE RECORDS SUMMARY | 2024-05-06 09:05 | XMS_ITS | Encounter Summary ---
Author Organization [facility] Address [address] [facility] Attn: Epic Prelude ADT OLLIE HERRMANN [address] Care Team Providers Care Travel Accommodation Inspector Name Role Phone Cornelio Rayo DO Primary Care Provider [phone] Encounter Details Date Type Department Care Team (Latest Contact Info) Description 05/12/2021 Travel Social History Tobacco Use Types Packs/Day [...] have Coronavirus / COVID-19? No / Unsure 05/12/2021 9:56 AM DIRECTOR OF DIETARY documented as of this encounter Plan of Treatment Upcoming Encounters Date Type Department Care Team (Late st Contact Info) Description 06/13/2024 10:15 AM DIRECTOR OF DIETARY Office Visit [facility] Oncology and Hematology - [place] [address] [facility] [address] [place] [address] Yosef Salmeron MD [address] [facility] [address] [place] [address] documented as of this encounter Visit Diagnoses Not on filedocumented in this encounter Care Teams Travel Accommodation Inspector Relationship Specialty Start Date End Date Cornelio Rayo DO [address] [facility] [address] [facility] 204 [place] [address] PCP - General Internal Medicine 03/08/21 09/11/22 documented as of this encounter
--- OUTSIDE RECORDS SUMMARY | 2024-05-06 09:05 | XMS_ITS | Encounter Summary ---
Author Organization [facility] [employer] [facility] Address [address] [place] [address] Care Team Providers Care Share Holder Name Role Phone Cornelio Rayo DO Primary Care Provider [phone] Reason for Visit * Reason Comments Chemotherapy f/u with labs and tx Encounter Details Date Type Department Care Team (Late st Contact Info) Description 05/12/2021 10:00 AM NOTCHING MACHINE OPERATOR Office Visit [facility] Oncology and Hematology - [place] [address] [place] [address] [facility] 200 [place] [address] Yosef Salmeron MD [address] [facility] [address] [place] [address] Malignant neoplasm of transverse colon [...] COVID-19? No / Unsure 05/12/2021 9:56 AM NOTCHING MACHINE OPERATOR documented as of this encounter Last Filed Vital Signs Vital Sign Reading Time Taken Comments Blood Pressure 163/94 05/12/2021 10:02 AM NOTCHING MACHINE OPERATOR Pulse 88 05/12/2021 10:02 AM NOTCHING MACHINE OPERATOR Temperature 37 ??C (98.6 ??F) 05/12/2021 10:02 AM NOTCHING MACHINE OPERATOR Respiratory Rate - - Oxygen Saturation 98% 05/12/2021 10:02 AM NOTCHING MACHINE OPERATOR Inhaled Oxygen Concentration - - Weight 99.9 kg (220 lb 3.2 oz) 05/12/2021 10:02 AM NOTCHING MACHINE OPERATOR Height 170.2 cm (5' 7 ) 05/12/2021 10:02 AM NOTCHING MACHINE OPERATOR Body Mass Index 34.49 05/12/2021 10:02 AM NOTCHING MACHINE OPERATOR documented in this encounter Progress Notes * Yosef Salmeron MD - 05/12/2021 10:31 AM CST HEMATOLOGY / ONCOLOGY PROGRESS NOTE [...] SUBJECTIVE Patient came into the office for continuation of chemotherapy. She was diagnosed with Covid infection just about 10 days ago. She received monoclonal antibody therapy just about a week ago. She is feeling better. Denies any fever chills. No cough and shortness of breath. No other new complaint. Review of system [...] Neuro: No obvious focal deficit PATH LABS Labs from 05/12/2021 showed WBC 2.8 hemoglobin 10.7 platelet 275,000 ANC 800 creatinine 1.0 @IMAGEIMP@ Assessment: Plan: Patient Active Problem List Diagnosis [...] with FOLFOX in 04/26/2021. Labs noted. Patient is neutropenic likely secondary to chemotherapy and recent Covid infection. Shereceived monoclonal antibodies as well. I will hold chemotherapy for 1 week. I plan to see her backin 3 weeks with cycle #3 of chemotherapy. Right middle lobe lung nodule. We will plan repeat CT chest after 6 cycles of chemotherapy. Leukopenia and neutropenia. We will hold chemotherapy for 1 week. ? TOBACCO COUNSELING She is not a tobacco user. 05/12/2021 Yosef Salmeron MD HING MACHINE OPERATOR documented in this encounter Plan of Treatment Upcoming Encounters Date Type Department Care Team (Late st Contact Info) Description 06/13/2024 10:15 AM NOTCHING MACHINE OPERATOR Office Visit [facility] Oncology and Hematology - [place] [address] [facility] [address] [place] [address] Yosef Salmeron MD [address] [facility] [address] [place] [address] Scheduled Orders Name Type Priority Associated Diagnoses Orde r Schedule BASIC METABOLIC PANEL Lab Stat Malignant neoplasm of transverse colon Expected: 05/26/2021, Expires: 05/12/2022 CBC WITH DIFFERENTIAL Lab Stat Malignant neoplasm of transverse colon Expected: 05/26/2021, Expires: 05/12/2022 documented as of this encounter Visit Diagnoses Diagnosis Malignant neoplasm of transverse colon- Primary documented in this encounter Care Teams Share Holder Relationship Specialty Start Date End Date Cornelio Rayo DO [address] [facility] 162 [facility] 204 [place] [address] PCP - General Internal Medicine 03/08/21 09/11/22 documented as of this encounter
--- OUTSIDE RECORDS SUMMARY | 2024-05-06 09:05 | XMS_ITS | Encounter Summary ---
Author Organization [facility] [employer] [facility] Address [address] [place] [address] Care Team Providers Care Otr Driver Name Role Phone Cornelio Rayo DO Primary Care Provider [phone] Encounter Details Date Type Department Care Team (Late Contact Info) Description 05/31/[address] [facility] Oncology and Hematology - [place] [address] [place] [address] Yosef Salmeron MD [address] [facility] [employer] [address] [place] [address] Malignant neoplasm of transverse colon [...] have Coronavirus / COVID-19? No / Unsure 06/01/2021 8:32 AM ASSISTANT PROFESSOR SURGICAL TECHNOLOGY documented as of this encounter Plan of Treatment Upcoming Encounters Date Type Department Care Team (Late Contact Info) Description 06/13/2024 10:15 AM ASSISTANT PROFESSOR SURGICAL TECHNOLOGY Office Visit [facility] Oncology and Hematology - [place] [address] [place] [address] Yosef Salmeron MD [address] [facility] [address] [place] [address] documented as of this encounter Visit Diagnoses Diagnosis Malignant neoplasm of transverse colon documented in this encounter Care Teams Otr Driver Relationship Specialty Start Date End Date Cornelio Rayo DO [address] [facility] 162 [facility] 204 [place] [address] PCP - General Internal Medicine 03/08/21 09/11/22 documented as of this encounter
--- OUTSIDE RECORDS SUMMARY | 2024-05-06 09:05 | XMS_ITS | Encounter Summary ---
Author Organization [facility] [employer] [facility] Address [address] [place] [address] Care Team Providers Care Speech And Hearing Director Name Role Phone Cornelio Rayo DO Primary Care Provider [phone] Reason for Visit * Reason Comments Chemotherapy 2 wk f/u with labs a nd Tx Encounter Details Date Type Department Care Team (Late st Contact Info) Description 06/22/2021 8:45 AM SEA FOAM KISS MAKER Office Visit [facility] Oncology and Hematology - [place] [address] [place] [address] [facility] [address] [place] [address] Yosef Salmeron MD [address] [facility] [address] [place] [address] Malignant neoplasm of transverse colon [...] COVID-19? No / Unsure 06/22/2021 8:36 AM SEA FOAM KISS MAKER documented as of this encounter Last Filed Vital Signs Vital Sign Reading Time Taken Comments Blood Pressure 163/110 06/22/2021 8:52 AM SEA FOAM KISS MAKER Pulse 74 06/22/2021 8:52 AM SEA FOAM KISS MAKER Temperature 36.2 ??C (97.1 ??F) 06/22/2021 8:52 AM CS T Respiratory Rate - - Oxygen Saturation 98% 06/22/2021 8:52 AM SEA FOAM KISS MAKER Inhaled Oxygen Concentration - - Weight 102.9 kg (226 lb 12.8 oz) 06/22/2021 8:52 AM SEA FOAM KISS MAKER Height 170.2 cm (5' 7 ) 06/22/2021 8:52 AM SEA FOAM KISS MAKER Body Mass Index 35.52 06/22/2021 8:52 AM SEA FOAM KISS MAKER documented in this encounter Progress Notes * Yosef Salmeron MD - 06/22/2021 9:15 AM CST HEMATOLOGY / ONCOLOGY PROGRESS NOTE [...] for follow-up visit and continuation of chemotherapy. So far she is tolerating treatment well. She has some days of constipation. Neuropathy is stable. She also has some intermittent heartburn. No other new complaints. Review of system Constitutional: denies fevers, sweats, improvement in tiredness and fatigue HEENT: denies sinus congestion, hearing or vision problems Respiratory: denies cough, dyspnea, wheeze Cardiovascular: denies chest pain, exertional chest pressure/discomfort, nausea, syncope, shortnessof breath GI: denies diarrhea, dsyphagia, reflux symptoms, vomiting, melena, intermittent heartburn, complainof constipation : denies dysuria, frequency, incontinence, urgency [...] 3.9 hemoglobin 11.4 platelet 208,000 creatinine 0.7 Assessment: Plan: Patient Active Problem [...] chemotherapy with FOLFOX in 04/26/2021. Labs noted that showed improvement in the WBC and hemoglobin. She will proceed with cycle 4 of chemotherapy with FOLFOX today. I plan to see her back in 2 weeks. Anemia. Hemoglobin has improved. Continue oral iron once a day with vitamin C and vitamin B12. Leukopenia and neutropenia. WBC count has improved. Right middle lobe lung nodule. We will plan to perform CT scan of chest after cycle 6. TOBACCO COUNSELING She is not a tobacco user. . 06/22/2021 Yosef Salmeron MD FOAM KISS MAKER documented in this encounter Plan of Treatment Upcoming Encounters Date Type Department Care Team (Late st Contact Info) Description 06/13/2024 10:15 AM SEA FOAM KISS MAKER Office Visit [facility] Oncology and Hematology [facility] [address] [facility] [address] [place] [address] Yosef Salmeron MD [address] [facility] [address] [place] [address] documented as of this encounter Visit Diagnoses Diagnosis Malignant neoplasm of transverse colon- Primary documented in this encounter Care Teams Speech And Hearing Director Relationship Specialty Start Date End Date Cornelio Rayo DO 68[address] [facility] [address] [place] [address] PCP - General Internal Medicine 03/08/21 09/11/22 documented as of this encounter
--- OUTSIDE RECORDS SUMMARY | 2024-05-06 09:05 | XMS_ITS | Encounter Summary ---
Author Organization [facility] [employer] [facility] Address [address] [place] [address] Care Team Providers Care Nuts And Bolts Assembler Name Role Phone Cornelio Rayo DO Primary Care Provider [phone] Encounter Details Date Type Department Care Team (Late Contact Info) Description 06/14/2021 Orders Only [facility] Oncology and Hematology - [place] [address] [place] [address] Yosef Salmeron MD [address] [facility] [address] [place] [address] Malignant neoplasm of transverse colon [...] COVID-19? No / Unsure 06/01/2021 8:32 AM SYSTEMS SPEC documented as of this encounter Plan of Treatment Upcoming Encounters Date Type Department Care Team (Late Contact Info) Description 06/13/2024 10:15 AM SYSTEMS SPEC Office Visit [facility] Oncology and Hematology - [place] [address] [place] [address] Yosef Salmeron MD [address] [facility] [address] [place] [address] documented as of this encounter Visit Diagnoses Diagnosis Malignant neoplasm of transverse colon documented in this encounter Care Teams Nuts And Bolts Assembler Relationship Specialty Start Date End Date Cornelio Rayo DO [address] [facility] [address] [facility] 204 [place] [address] PCP - General Internal Medicine 03/08/21 09/11/22 documented as of this encounter
--- OUTSIDE RECORDS SUMMARY | 2024-05-06 09:05 | XMS_ITS | Encounter Summary ---
Author Organization [facility] [employer] [facility] Address [address] [place] [address] Care Team Providers Care Customer Operations Intern Name Role Phone Cornelio Rayo DO Primary Care Provider [phone] Reason for Visit * Reason Onset Date Comments Medication Refill 05/06/2021 Encounter Details Date Type Department Care Team (Late Contact Info) Description 05/06/[address] [facility] Oncology and Hematology - [place] [address] [place] [address] Yosef Salmeron MD [address] [facility] [employer] [address] [place] [address] Malignant neoplasm of transverse colon [...] have Coronavirus / COVID-19? No / Unsure 04/15/2021 7:08 AM POWER PLANT ENGINEER documented as of this encounter Plan of Treatment Upcoming Encounters Date Type Department Care Team (Late Contact Info) Description 06/13/2024 10:15 AM POWER PLANT ENGINEER Office Visit [facility] Oncology and Hematology - [place] [address] [place] [address] Yosef Salmeron MD [address] [facility] [address] [place] [address] documented as of this encounter Visit Diagnoses Diagnosis Malignant neoplasm of transverse colon- Primary documented in this encounter Care Teams Customer Operations Intern Relationship Specialty Start Date End Date Cornelio Rayo DO [address] [facility] [address] [place] [address] PCP - General Internal Medicine 03/08/21 09/11/22 documented as of this encounter
--- OUTSIDE RECORDS SUMMARY | 2024-05-06 09:05 | XMS_ITS | Encounter Summary ---
Author Organization [facility] Address [address] [place] [address] Care Team Providers Care Hybrid Technologist Name Role Phone Cornelio Rayo Primary Care Provider [phone] Reason for Visit * Auth/Cert Specialty Diagnoses / Procedures Referred By Contmalissa t Referred To Contact Katelyn Jack MD [address] [facility] [address] [place] [address] Referral ID Status Reason Start Date Expiration Date Visits Re quested Visits Authorized [id number] 04/13/2021 1 1 Encounter Details Date Type Department Care Team (Late st Contact Info) Description 04/15/2021 10:16 AM SHIP RUNNER Anesthesia Event [facility] Operating Room [address] [place] [address] Nando Baez MD [address] [place] [address] Anesthesia Record Procedure Summary Procedure Name Responsible Anesthesiologist Anesthesia Start Time Anesthesia Stop Time CENTRAL VENOUS ACCESS INSERTION (Chest) Nando Baez MD 04/15/21 1016 04/15/21 1117 Events Date Time Event Comment 04/15/2021 0757 Intended Opioids 0758 1016 AN Equip Check Anesthesia eq uipment and materials checked in accordance with local policy. 1016 An Start 1018 In Room This event disp lays the In Room time documented in the Surgical Log. Deleting this event will not remove it from the log but will remove it from the Grid and Graph timeline. 1018 An Start Data 1022 Pre-Induction Immediate pre- induction anesthetic assessment performed. Vital signs as noted on graphic. 1024 An Induction 1031 Anesthesia Ready 1039 Procedure Start This event d isplays the Procedure Start time documented in the Surgical Log. Deleting this event will not remove it from the log but will remove it from the Grid and Graph timeline. 1104 Procedure Stop This event di splays the Procedure Stop time documented in the Surgical Log. Deleting this event will not remove it from the log but will remove it from the Grid and Graph timeline. 1109 an stop data 1109 Out of Room This event disp lays the Out of Room time documented in the Surgical Log. Deleting this event will not remove it from the log but will remove it from the Grid and Graph timeline. 1117 An Stop 1117 Hand-off to Receiving Clinic carolyn Post-Anesthetic transfer of care report elements to appropriate post-anesthesia recovery environment completed in accordance with procedure. 1117 Quick Note Transport from OR to recovery area or ICU, continuously present and monitoring (3354-1272) Meds Name Total ceFAZolin in sterile water ( ANCEF) 2 gram/20 mL IV Syringe (PREMIX) 2,000 mg 2,000 mg propofol (DIPRIVAN) 10??mg/mL injection 597.12 mg lidocaine (XYLOCAINE) 2% injection 60 mg midazolam PF (VERSED) 1 mg/mL injection 2 mg fentaNYL (SUBLIMAZE) PF 50??mcg/mL injec tion 125 mcg dexamethasone (DECADRON) 4 mg/mL injecti on 4 mg ondansetron (ZOFRAN) 4??mg/2 mL injectio n 4 mg phenylephrine 1 mg/10 mL (100 mcg/mL) in jection 100 mcg lactated ringers infusion 0 mL * Agents Name Sevoflurane % Sevoflurane O2 N2O Inspired N2O O2 * Blood No blood administrations on file. Lines, Drains, and Airways Type Details Placement Removal Peripheral IV Pre-Hospital Start: No; Orientation: Left; Location: Wrist; Device: Angiocath; Gauge: 20 gauge; Needle Length: 1 in length; Insertion Attempts: 1; Patient Tolerance: tolerated well 04/15/21 0733 by Patricia Govea RN Incision 04/15/21; 1035; surg ical incision; Right; chest; 04/16/21; 0235 04/15/21 1035 by Madyson Jean RN 04/16/21 0235 by PROVIDER, DISCHARGE PATIENT documented in this encounter Social History Tobacco [...] COVID-19? No / Unsure 04/15/2021 7:08 AM SHIP RUNNER documented as of this encounter OR Notes * Anesthesia Postprocedure Evaluation - Nando Baez MD - 04/15/2021 12:11 PM CST Phase I Postanesthesia Evaluation Including Modified Jenaro Score Patient seen and evaluated: Modified Jenaro Score: Score: 10 (04/15/211209) COMMENTS: No apparent Anesthesia related complications RESPIRATORY FUNCTION: Respiration: able to breath and cough freely (04/15/211209) [2=able to breathe and cough freely, 1=dyspnea, limited breathing or tachypnea, 0=apnea or mechanicventilator] O2 Saturation: able to maintain O2 saturation greater than 92% on room air (04/15/211209) [2=able to maintain O2 saturation greater than 92% on room air, 1=needs O2 inhalation to maintain O2 saturation greater than 90%, 0=O2 saturation less than 90% even with O2 supplement] Resp: 18 (04/15/211209)SpO2: 99 % (04/15/211209) CARDIOVASCULAR FUNCTION: BP: (!) 142/79 (04/15/211209) Circulation: BP within 20% of preanesthetic level (04/15/211209) [2=BP within 20% of preanesthetic level, 1=BP within 20-49% of preanesthetic level, 0=BP within 50%of preanesthetic level] MENTAL STATUS, NEURO, ACTIVITY: PATIENT PARTICIPATION IN EVALUATION:yes Consciousness: fully awake (04/15/211209) [2=fully awake, 1=arousable on calling, 0=not responding] Activity: able to move 4 extremities voluntarily or on command (04/15/21 1210) [2=able to move 4 extremities voluntarily or on command, 1=able to move 2 extremities voluntarily or on command, 0=unable to move extremities voluntarily or on command] TEMPERATURE: Temp: 36.7 ??C (04/15/21 1210) PAIN: NAUSEA AND VOMITING: no nausea and no vomiting POSTOPERATIVE HYDRATION: well hydrated No intake or output data in the 24 hours ending 04/15/21 1232 Nando Baez MD 04/15/2021 12:32 PM Post Anesthesia Evaluation Vitals: Vitals Value Taken Time BP 142/79 04/15/21 1210 Temp 36.7 ??C 04/15/21 1210 Resp 18 04/15/21 1210 SpO2 99 % 04/15/21 1210 Pulse 59 04/15/21 1210 Heart Rate Pain Rating: Anesthesia Post Evaluation Patient location during evaluation: PACU Patient participation: patient was able to participate in the post op evaluation Level of consciousness: 0 = alert, responsive, answers simple questions appropriately, able to perform simple tasks Pain management: adequate Airway patency: patent Nausea or Vomiting: none Anesthetic complications: no Cardiovascular status: regular rate and rhythm Respiratory status: no respiratory symptoms Hydration status: well hydrated IZZY Glass RUNNER * Anesthesia Handoff - Mike Curry AA-C - 04/15/2021 11:17 AM CST Post-Anesthetic transfer of care report elements to [...] and acknowledgement of understanding. Vital Signs: BP: 118/74 (04/15/2021 11:17 AM) Pulse: 80 (04/15/2021 11:17 AM) Temp: 36.6 ??C (04/15/2021 11:17 AM) Resp: 18 (04/15/2021 11:17 AM) SpO2: 97 % (04/15/2021 11:17 AM) 11:48 AM IZZY Glass RUNNER * Anesthesia Preprocedure Evaluation - Nando Baez MD - 04/15/2021 6:17 AM CST Relevant Problems No relevant active problems Anesthesia Evaluation Airway Mallampati: II TM distance: >3 FB Neck ROM: full Dental - normal exam Pulmonary (-) pneumonia, COPD, asthma, shortness of breath, recent URI, sleep apnea ROS comment: Nonsmoker, no CRISELDA but snores Cardiovascular Exercise tolerance: good ROS comment: No syncope Neuro/Psych GI/Hepatic/Renal Comments: Abdominal pain Hypokalemia Acute colitis Colonic mass Liver lesion Malignant neoplasm of transverse colon Endo/Other Abdominal Anesthesia History History of PONV.No history of anesthetic complications, no history of difficult intubation, no history of malignant hyperthermia and no pseudocholinesterase deficiency. Comments: Motion sickness yes. 04/14/21 COVID 19 NEGATIVE PACE note reviewed Pre-Procedure Anesthesiology Consultation and Evaluation (PACE) Service ?? 03/22/2021 10:48 AM ?? Name: Mary Earl Age: 51 y.o. Sex: female CSN: [id number] ?? Procedure(s): SIGMOID COLON RESECTION ROBOTIC XI ?? Allergies Allergen Reactions ??? Sulfa (Sulfonamide Antibiotics) Swelling ??? Unclassified Drug Nausea and Vomiting ? Pt reports does not tolerate anesthesia and pain medications well. ??? Codeine Nausea and Vomiting ??? Meperidine Nausea and Vomiting Pre-Surgery Instructions Medication Instructions ??? neomycin (MYCIFRADIN) 500 mg tablet Continue taking as prescribed ??? metroNIDAZOLE (FLAGYL) 500 mg tablet Continue taking as prescribed ??? polyethylene glycol (MIRALAX) 17 gram Powder in Packet Do not take day of surgery ? Patient Active Problem List ?? Diagnosis Date Noted ??? Malignant neoplasm of transverse colon ? Colonic mass ? Liver lesion ? Acute colitis ? Abdominal pain 03/08/2021 ??? Hypokalemia 03/08/2021 ?? Past Medical History Past Medical History: Diagnosis Date ??? Difficult intravenous access ? Malignant tumor of colon ? Patient denies medical problems ? Patient denies relevant medical history ? Post-operative nausea and vomiting ?? Past Surgical History Past Surgical History: Procedure Laterality Date ??? HX SECTION ? HX DILATION AND CURETTAGE ? HX TUBAL LIGATION ? MS COLONOSCOPY FLX DX W/COLLJ SPEC WHEN PFRMD N/A 03/10/2021 ?? COLONOSCOPY performed by Vikas Fung MD at [facility] GI [facility] Social History ?? Tobacco Use ??? Smoking status: Former Smoker ? Types: Cigarettes ? Quit date: 2000 ? Years since quittin.8 ??? Smokeless tobacco: Never Used Substance Use Topics ??? Alcohol use: No Family History Family History Problem Relation Name Age of Onset ??? Colon Cancer Neg Hx ? Previous Anesthesia Problems/Concerns: Post-operative nausea & vomiting (PONV) and Difficult intravenous access History of PONV Yes ?? Review of Systems ?? Cardiovascular: negative for chest pain, chest pressure/discomfort, exertional chest pressure/discomfort, palpitations, shortness of breath/dyspnea. 3 flight of stairs without SOB/CP Respiratory: Lung nodule. 02/2020 Covid - no hospitalization. Snoring - No, CRISELDA - No Gastrointestinal: negative. Genitourinary:negative. Musculoskeletal: negative Neurological: negative Endocrine negative Oncology: Colon CA 2020 ?? PHYSICAL EXAM BP 125/80 (BP Location: Right arm, Patient Position (BP): Sitting) Pulse 71 Ht 5' 8 (1.727 m) Wt 93.9 kg (207 lb) SpO2 98% BMI 31.47 kg/m?? Weight: Weight: 93.9 kg (207 lb) (03/22/21 1038) Height: Ht Readings from Last 1 Encounters: 03/22/21 5' 8 (1.727 m) BMI: Body mass index is 31.47 kg/m??. General Appearance: Alert, oriented, no acute distress Airway: normal range of motion; Airway Class: II (soft palate, uvula, fauces visible); Special Considerations None Dentition: good, chipped/cracked teeth and caps/crowns Lungs: clear to auscultation bilaterally, normal respiratory effort Heart: regular rate and rhythm, S1, S2 normal, no murmur, click, rub or gallop Neuro: alert, oriented x 3, no defects noted in general exam. Extremities: extremities normal, atraumatic, no cyanosis or edema, moves all extremities equally LABS Lab Results Component Value Date/Time ?? WBC 5.4 03/09/2021 07:34 AM ?? HEMOGLOBIN 11.9 03/09/2021 07:34 AM ?? HEMATOCRIT 37.4 03/09/2021 07:34 AM ?? PLATELETS 198 03/09/2021 07:34 AM ?? MCV 91.4 03/09/2021 07:34 AM Lab Results Component Value Date/Time ?? SODIUM 143 03/09/2021 07:34 AM ?? POTASSIUM 3.8 03/09/2021 07:34 AM ?? CHLORIDE 106 03/09/2021 07:34 AM ?? CO2 23 03/09/2021 07:34 AM ?? CALCIUM 9.0 03/09/2021 07:34 AM ?? BUN 8 03/09/2021 07:34 AM ?? CREATININE 0.62 03/09/2021 07:34 AM ?? GLUCOSE 109 (H) 03/09/2021 07:34 AM ?? ANION GAP 14 03/09/2021 07:34 AM No results found for: INR, PT, PROTIMEPOC No results found for: HCGURPOC, HCGQUALUR, HCGQUAL, HCGQUANT, HCGINTACT ?? EKG: EKG not indicated today Other Studies/Considerations: None ?? Risks/Alternatives discussed. Questions solicited and answered. Yes Postop pain management discussed yes Smoking/Tobacco Counseling: None Recommendations:None ?? ATTESTATIONS Prescriptions Prior to Admission (Not in a hospital admission) ?? I obtained, updated or reviewed the patient's current medications including dosage, frequency, and route of administration. This information was obtained directly from the patient or leather goods sales representative or caregiver or another available healthcare resource and updated in [employer]. Social History ?? Tobacco Use Smoking Status Former Smoker ??? Types: Cigarettes ??? Quit date: 2000 ??? Years since quittin.8 Smokeless Tobacco Never Used ?? Patient screened for tobacco use and identified as a Non-User of tobacco. ?? REPORT AND NECESSARY FOLLOW-UP History and physical performed in [facility]; tests (ECG, blood work) reviewed. Abnormal Results Found: no Further Testing or Evaluation Required: no Final [facility] Center Review: May proceed with procedure/surgery: yes ?? Stop bang score is 1 Based on a STOP-BANG score of 0-2 the patient is deemed low risk for CRISELDA and there is no follow-up,education nor interventions needed. ?? Thiago Lee, MANAGER PRIMARY CARE ? I, Nando Baez MD, attest that I have reviewed the Advanced Practitioner's note - including the history, documented findings, assessment, and plan. I agree with the plan as documented exceptwhere noted. ?? Nando Baez MD Anesthesia Plan ASA Final: 2 General and MAC Intravenous induction Supraglottic airway maintenance NPO status > 8 hours Anesthetic plan and risks discussed with Patient. Use of blood products: consented to blood products. Plan discussed with Anesthesiologist. Post-op Pain Control Plan to use IV or IM medication, Oral medication and Per surgeon for post-op pain control. Plan for postoperative opioid use Smoking Compliance Patient did not smoke on day of surgery RUNNER documented in this encounter Plan of Treatment Upcoming Encounters Date Type Department Care Team (Late st Contact Info) Description 06/13/2024 10:15 AM SHIP RUNNER Office Visit [facility] Oncology and Hematology - Neym[place] [address] [facility] [address] [place] [address] Yosef Salmeron MD [address] [facility] [address] [place] [address] documented as of this encounter Visit Diagnoses Not on filedocumented in this encounter Administered Medications Inactive Administered Medications - up to 3 most recent administrations Medication Order MAR Action Action Date Dose Rate Site ceFAZolin in sterile water (ANCEF) 2 gram/20 mL IV Syringe (PREMIX) 2,000 mg 2,000 mg, IV, PRE-PROCEDURE ONCE, 1 dose, Starting on Estefany 04/15/21 at 0700, Until Estefany 04/15/21 at 1034, Routine, Pre-op, Antibiotic Indication: Surgical prophylaxis Given 04/15/2021 10:34 AM SHIP RUNNER 2,000 mg dexamethasone (DECADRON) 4 mg/mL injection IV, INTRA-PROCEDURE PRN, Starting on Estefany 04/15/21 at 1033, Until Estefany 04/15/21 at 1147, Routine, Anesthesia Intra-op Given 04/15/2021 10:33 AM SHIP RUNNER 4 mg fentaNYL PF (SUBLIMAZE) 50 mcg/mL injection IV, INTRA-PROCEDURE PRN, Starting on Estefany 04/15/21 at 1022, Until Estefany 04/15/21 at 1147, Routine, Anesthesia Intra-op Given 04/15/2021 10:44 AM SHIP RUNNER 25 mcg Given 04/15/2021 10:33 AM SHIP RUNNER 25 mcg Given 04/15/2021 10:31 AM SHIP RUNNER 25 mcg lactated ringers infusion IV, at 125 mL/hr, PRE-PROCEDURE CONTINUOUS, Starting on Estefany 04/15/21 at 0715, Until Estefany 04/15/21 at 1635, Routine Continue from Pre-Op 04/15/2021 10:16 AM SHIP RUNNER 125 mL/hr New Bag 04/15/2021 7:34 AM SHIP RUNNER 125 mL/hr lidocaine 2 % (XYLOCAINE) injection IV, INTRA-PROCEDURE PRN, Starting on Estefany 04/15/21 at 1024, Until Estefany 04/15/21 at 1147, Routine, Anesthesia Intra-op Given 04/15/2021 10:24 AM SHIP RUNNER 60 mg midazolam (PF) (VERSED) injection IV, INTRA-PROCEDURE PRN, Starting on Estefany 04/15/21 at 1016, Until Estefany 04/15/21 at 1147, Routine, Anesthesia Intra-op Given 04/15/2021 10:16 AM SHIP RUNNER 2 mg ondansetron (ZOFRAN) 4 mg/2 mL injection IV, INTRA-PROCEDURE PRN, Starting on Estefany 04/15/21 at 1033, Until Estefany 04/15/21 at 1147, Routine, Anesthesia Intra-op Given 04/15/2021 10:33 AM SHIP RUNNER 4 mg phenylephrine 1 mg/10 mL (100 mcg/mL) injection IV, INTRA-PROCEDURE PRN, Starting on Estefany 04/15/21 at 1100, Until Estefany 04/15/21 at 1147, Routine, Anesthesia Intra-op Given 04/15/2021 11:00 AM SHIP RUNNER 100 mcg propofoL (DIPRIVAN) injection IV, INTRA-PROCEDURE PRN, Starting on Estefany 04/15/21 at 1024, Until Estefany 04/15/21 at 1147, Anesthesia Intra-op Rate Change 04/15/2021 10:59 AM SHIP RUNNER 50 mcg/kg/min 28.68 mL/hr Rate Change 04/15/2021 10:39 AM SHIP RUNNER 175 mcg/kg/min 100.38 mL/hr Rate Change 04/15/2021 10:36 AM SHIP RUNNER 150 mcg/kg/min 86.04 m L/hr documented in this encounter Care Teams Hybrid Technologist Relationship Specialty Start Date End Date Cornelio Rayo DO [address] [facility] [address] [facility] [address] [place] [address] PCP - General Internal Medicine 03/08/21 09/11/22 documented as of this encounter
--- OUTSIDE RECORDS SUMMARY | 2024-05-06 09:05 | XMS_ITS | Encounter Summary ---
Author Organization [facility] Address [address] [facility] Attn: Epic Prelude ADT OLLIE HERRMANN [address] Care Team Providers Care Filler Operator Name Role Phone Cornelio Rayo DO Primary Care Provider [phone] Encounter Details Date Type Department Care Team (Latest Contact Info) Description 04/13/2021 Travel Social History Tobacco Use Types Packs/Day [...] have Coronavirus / COVID-19? No / Unsure 04/13/2021 1:31 PM POISER BALANCE documented as of this encounter Plan of Treatment Upcoming Encounters Date Type Department Care Team (Late st Contact Info) Description 06/13/2024 10:15 AM POISER BALANCE Office Visit [facility] Oncology and Hematology - Neymar [address] [facility] [address] [place] [address] Yosef Salmeron MD [address] [facility] [address] [place] [address] documented as of this encounter Visit Diagnoses Not on filedocumented in this encounter Care Teams Filler Operator Relationship Specialty Start Date End Date Cornelio Rayo DO [address] [facility] [address] [facility] [address] [place] [address] PCP - General Internal Medicine 03/08/21 09/11/22 documented as of this encounter
--- OUTSIDE RECORDS SUMMARY | 2024-05-06 09:05 | XMS_ITS | Encounter Summary ---
Author Organization [facility] Address [address] [facility] Attn: Epic Prelude ADT OLLIE [place]ERRMANN [address] Care Team Providers Care Behavioral School Counselors Name Role Phone Cornelio Rayo DO Primary Care Provider [phone] Encounter Details Date Type Department Care Team (Latest Contact Info) Description 06/22/2021 Travel Social History Tobacco Use Types Packs/Day [...] COVID-19? No / Unsure 06/22/2021 8:36 AM MECHANICAL ESTIMATOR documented as of this encounter Plan of Treatment Upcoming Encounters Date Type Department Care Team (Late st Contact Info) Description 06/13/2024 10:15 AM MECHANICAL ESTIMATOR Office Visit [facility] Oncology and Hematology - Neymar [address] [facility] [address] [place] [address] Yosef Salmeron MD [address] [facility] [address] [place] [address] documented as of this encounter Visit Diagnoses Not on filedocumented in this encounter Care Teams Behavioral School Counselors Relationship Specialty Start Date End Date Cornelio Rayo DO [address] [facility] [address] [facility] [address] [place] [address] PCP - General Internal Medicine 03/08/21 09/11/22 documented as of this encounter
--- OUTSIDE RECORDS SUMMARY | 2024-05-06 09:05 | XMS_ITS | Encounter Summary ---
Author Organization [facility] Address [address] [place] [address] Care Team Providers Care Sales Rep Name Role Phone Cornelio Rayo DO Primary Care Provider [phone] Reason for Visit * Reason Onset Date Comments Surgery 04/13/2021 Encounter Details Date Type Department Care Team (Late Contact Info) Description 04/13/2021 Telephone [facility] Surgical Spec [place] [address] [facility] [address] [place] [address] Katelyn Jack MD [address] [facility] [address] [place] [address] Surgery Social History Tobacco Use Types Packs/Day Years [...] have Coronavirus / COVID-19? No / Unsure 04/09/2021 12:31 PM COMPLIANCE QUALITY PERFORMANCE ANALYST documented as of this encounter Plan of Treatment Upcoming Encounters Date Type Department Care Team (Late Contact Info) Description 06/13/2024 10:15 AM COMPLIANCE QUALITY PERFORMANCE ANALYST Office Visit [facility] Oncology and Hematology - [place]ym[place] [address] [place] [address] Yosef Salmeron MD [address] [facility] [address] [place] [address] documented as of this encounter Results * 2019 NOVEL CORONAVIRUS (COVID-19) PCR DETECTION (04/14/2021 9:06 AM COMPLIANCE QUALITY PERFORMANCE ANALYST) COVID-19 PCR NOT DETECTED Not Detected 04/14/20 3:20 PM COMPLIANCE QUALITY PERFORMANCE ANALYST [facility] PERFORMING LAB [facility] 04/14/2021 3:20 PM COMPLIANCE QUALITY PERFORMANCE ANALYST [facility] Upper Respiratory ENTIRE NASOPHARYNX / Unknown Collection / Unknown 04/14/2021 9:06 AM COMPLIANCE QUALITY PERFORMANCE ANALYST 04/14/2021 10:52 AM COMPLIANCE QUALITY PERFORMANCE ANALYST Narrative [facility] - 04/14/2021 3:20 PM COMPLIANCE QUALITY PERFORMANCE ANALYST This test has been authorized by the FDA under an Emergency Use Authorization for use by authorized laboratories.?? This test has been validated in accordance with the FDA's guidance regarding Coronavirus Disease-2019 testing.?? Optimum specimen types and timing for peak viral levels during infection have not been determined.?? A negative RT-PCR result does not rule out infection with the 2019-Novel Coronavirus. Katelyn Jack MD MICROBIOLOGY - [facility] AL ORDERABLES [facility]# [id number] [address] [place] [address] documented in this encounter Visit Diagnoses Diagnosis Preop testing- Primary Preoperative examination, unspecified documented in this encounter Care Teams Sales Rep Relationship Specialty Start Date End Date Cornelio Rayo DO [address] [place] [address] PCP - General Internal Medicine 03/08/21 09/11/22 documented as of this encounter
--- OUTSIDE RECORDS SUMMARY | 2024-05-06 09:05 | XMS_ITS | Encounter Summary ---
Author Organization [facility] Address [address] [place] [address] Care Team Providers Care Nurse Extern Name Role Phone Perri Cornelio Gonzalez MOSER Primary Care Provider [phone] Reason for Visit * Auth/Cert Specialty Diagnoses / Procedures Referred By Contac t Referred To Contact Katelyn Jack MD [address] [address] Referral ID Status Reason Start Date Expiration Date Visits Re quested Visits Authorized [id number] 04/13/2021 1 1 Encounter Details Date Type Department Care Team (Late st Contact Info) Description 04/15/2021 9:47 AM NITRO MAN - 04/15/2021 11:03 AM NITRO MAN Surgery [facility] Operating Room [address] [place] [address] Katelyn Jack MD [address] [address] CENTRAL VENOUS ACCESS INSERTION Surgery Details Date/Time Status Location OR Service Patient Class Case Class Case Type Trauma Case? 04/15/2021 9:[address] OR MAIN OR General Surgery Surgical OP/Extended Care Elective No Panel 1 Procedure LRB Anes Op Region Wound Class Comments CENTRAL VENOUS ACCESS INSERTION N/A Monitored Anesthetic Care Chest Clean-I Surgeon Surgeon Role Service Panel Katelyn Jack MD Primary General Surgery 1 documented in this encounter Social History Tobacco [...] COVID-19? No / Unsure 04/15/2021 7:08 AM NITRO MAN documented as of this encounter Last Filed Vital Signs Vital Sign Reading Time Taken Comments Blood Pressure 136/86 04/15/2021 6:12 AM NITRO MAN Pulse 64 04/15/2021 6:12 AM NITRO MAN Temperature 36.4 ??C (97.5 ??F) 04/15/2021 6:12 AM CS T Respiratory Rate 18 04/15/2021 6:12 AM NITRO MAN Oxygen Saturation - - Inhaled Oxygen Concentration - - Weight 95.6 kg (210 lb 12.8 oz) 04/15/2021 6:12 AM NITRO MAN Height 170.2 cm (5' 7 ) 04/15/2021 6:12 AM NITRO MAN Body Mass Index 33.02 04/15/2021 6:12 AM NITRO MAN documented in this encounter Discharge Instructions * Discharge Instructions* Merlene Santizo RN - 04/15/2021 11:21 AM NITRO MAN [facility] Ambulatory Surgery- Discharge Instructions ACTIVITY: ??? No strenuous activity such as sports or athletic working out for two (2) weeks. ??? Climbing stairs is allowed. Walking is encouraged. ??? No driving for 24 hours, or until the surgeon releases you to do so. ??? No smoking! WOUND CARE: ??? Showering is allowed. ??? Report redness, drainage, or warmth at the incision site or difficulty with swallowing to the surgeon???s office. Report any fever greater than 101 degrees F. ??? Report any increased shortness of breath. DIET: ??? Resume preoperative diet. FOLLOW-UP: Follow up in our office if needed after surgery [phone] ??? Follow up with oncologist as previously scheduled for chemotherapy ??? If you have any questions, please do not hesitate to call our office. Alternatively, you can sign up for [employer] at [email or web address] to make appointments, send Dr. Jack questions, or request medication refills. These online requests are only seen M-F during business hours. SAFETY For the next 24 hours, you may feel sleepy due to medicines used during your procedure. For the next 24 hour period or while you are on pain medication, DO NOT make any important decisions or sign any important papers. DO NOT drink any alcoholic beverages, including beer. DO NOT drive a car or operate machinery and power tools. For your safety and protection, we strongly recommend that a responsible adult be with you today and throughout the night. Medication Pain Medication given at . Next dose due at , if needed. ADDITIONAL INFORMATION Once you are home, if you develop any of the following symptoms, call your physician. Difficulty in breathing, persistent nausea or vomiting, pain that is unusual, excessive swelling orredness at incision site, trouble swallowing, inability to void, temperature greater than 101 degrees, excessive bleeding at incision site. If you cannot contact your physician, call or come to the Emergency Room at [facility] ([phone]) or the nearest Emergency Room. In an emergency, Call 911. O MAN documented in this encounter Medications at Time of Discharge Medication Sig Dispensed Refills Start Date End Date ondansetron (ZOFRAN ODT) 4 mg Tablet, Rapid Dissolve Take 1 Tablet by mouth every 6 hours as needed for Nausea/Emesis. Dissolve tablet on top of tongue, then swallow with saliva. 24 Tablet 03/28/2021 04/22/2021 documented as of this encounter H&P Notes * Katelyn Jack MD - 04/15/2021 7:11 AM CST I have reviewed the last H&P and examined the patient today and there are no changes. see my note from 04/12/21. O MAN documented in this encounter OR Notes * Operative Report - Katelyn Jack MD - 04/15/2021 11:10 AM CST Patient: Mary Earl / 51 y.o. / female : 1970 PREOPERATIVE DIAGNOSIS: Need for central venous access for chemotherapy. colon cancer. POSTOPERATIVE DIAGNOSIS: Same PROCEDURE: Placement of right internal jugular Power Port central venous catheter. US and fluoroscopic guidance and interpretation. SURGEON: Katelyn Jack MD ASSISTANTS: Mental Health Coordinator: Madyson Jean RN Scrub: Karishma Hicks RN; Tatianna Gonzales; Kanika Escudero ST; Francheska Yanez RN First Assistant: Justyna Hansen ST; Isis Kaplan RN Perioperative Nurse: Laurie Castle RN ANESTHESIA: Local with monitored sedation. ESTIMATED BLOOD LOSS: Minimal. SPECIMEN: None. INDICATION: Mary Earl is a very pleasant 51 y.o. year-old female who has developed the needfor central venous access for chemotherapy. DESCRIPTION OF PROCEDURE: After consent was obtained, the patient was taken to the operating room and placed in supine position, was sedated, prepped and draped in the usual sterile fashion. I began on the right side at which point we passed a Cook needle in the right IJ vein without difficulty under ultrasound guidance. The vessel was patent. There was a good flash of blood and then passed the wire through the needle into the superior vena cava. This was documented with an image, stored in thepaper chart. The wire position was confirmed with fluoroscopy. I then created a pocket for the portwith a scalpel and used cautery. I carried the dissection down through soft tissue to the pectoralis fascia and created a pocket for the port. Using the tunnelling device I connected the chest wall pocket to the wire insertion site and pulled the catheter through the tunnel. I then passed the sheath and dilator over the wire into the superior vena cava under the direction of fluoroscopy. The wireand dilator were removed. The catheter was passed through the sheath into the superior vena cava. The sheath was then pulled away and the catheter pulled back into the position under fluoroscopy guidance. The catheter was cut to the appropriate length, attached it to the port, and sutured into the pocket with 3- 0 Prolene suture. Hemostasis was assured. I flushed the Port with heparinized saline. I closed the deep tissue with 3-0 Vicryl suture. I closed the skin with 4-0 Monocryl suture in running subcuticular fashion. The wound was sterilely dressed. she tolerated the procedure well. All lap,needle, and sponge counts were correct. The patient was transferred to the Recovery Unit in stable c ondition at which point a portable CXR was obtained; results are pending. Signed: Katelyn Jack MD 04/15/2021, 11:10 AM Implant Name Type Inv. Item Serial No. Director [employer] Lot No. LRB No. Used Action PORT POWERPORT CLEARVUE 8FR MRI [id number] - [id number] Port PORT POWERPORT CLEARVUE 8FR MRI [id number] CR [employer] [id number] Right 1 Implanted O MAN documented in this encounter Miscellaneous Notes * Treatment Plan - Merlene Santizo RN - 04/15/2021 2:11 PM CST Results were called to Dr. Jack who states its okay for pt to D/C. O MAN * Treatment Plan - Merlene Santizo RN - 04/15/2021 11:20 AM CST Potential for pain related to surgical/procedural intervention Interventions: Assess level of pain/comfort utilizing verbal/nonverbal pain scales; assess culturalor yazidism indicators attached to pain; administer pain medications as prescribed; utilize non-pharmacologic pain control and comfort measures Expected Outcome: Patient demonstrates and reports adequate pain control Outcome Met: pain management reviewed patient Knowledge deficit related to post-discharge care Interventions: Assess learning needs and willingness to learn; give clear, concise explanations of the care required post-discharge; address patient/family questions and concerns; provide teaching asindicated Expected Outcome: Patient and/or family/significant other demonstrate(s) behaviors required for performance of activities enhancing recovery post-discharge Outcome Met: physician's plan of care reviewed and verbalized understanding O MAN * Care Plan - Patricia oGvea RN - 04/15/2021 6:57 AM CST Knowledge deficit related to procedure/environment Interventions: Assess learning needs and willingness to learn; give clear, concise explanations of the environment and sequence of events surrounding the periop experience; address patient/family questions and concerns; provide teaching as indicated, provide teaching related to postoperative pain assessment utilizing pain scales Expected Outcome: Patient verbalizes or demonstrates awareness/understanding of surgery and perioperative experience Outcome Met: Pt teaching done, questions answered, pt understands surgical process. O MAN documented in this encounter Plan of Treatment Upcoming Encounters Date Type Department Care Team (Late st Contact Info) Description 06/13/2024 10:15 AM NITRO MAN Office Visit [facility] Oncology and Hematology - [place] [address] [facility] [address] [place] [address] Yosef Salmeron MD [address] [facility] [address] [place] [address] documented as of this encounter Procedures Procedure Name Priority Date/Time Associated Diagnosis Comments XR CHEST PA OR AP 1 VW Stat 04/15/2021 1:09 PM NITRO MAN XR FLUORO CENTRAL VENOUS ACCESS Routine 04/15/2021 11:07 AM NITRO MAN RETIRED CENTRAL VENOUS ACCESS INSERTION 04/15/2021 9:47 AM NITRO MAN POC , URINE Routine 04/15/2021 6:10 AM NITRO MAN documented in this encounter Results * XR CHEST PA OR AP 1 VW (04/15/2021 1:09 PM NITRO MAN) Anatomical Region Laterality Modality Chest Computed Radiogr aphy 04/15/2021 1:09 PM NITRO MAN Impressions 04/15/2021 1:27 PM NITRO MAN IMPRESSION: ?? Right internal jugular port catheter tip projects over superior vena cava. No pneumothorax. ?? DICTATION LOCATION: Location - [facility] ?? Narrative 04/15/2021 1:27 PM NITRO MAN EXAMINATION: XR CHEST PA OR AP 1 VW DATE: 04/15/2021 1:09 PM HISTORY: Line Placement FINDINGS: No prior studies available for comparison. A right internal jugular port catheter tip projects over the superior vena cava. The lungs are clear. There is no pleural effusion or pneumothorax. Cardiomediastinal silhouette is stable. Procedure Note Jf Martinez MD - 04/15/2021 EXAMINATION: XR CHEST PA OR AP 1 VW DATE: 04/15/2021 1:09 PM HISTORY: Line Placement FINDINGS: No prior studies available for comparison. A right internal jugular port catheter tip projects over the superior vena cava. The lungs are clear. There is no pleural effusion or pneumothorax. Cardiomediastinal silhouette is stable. IMPRESSION: Right internal jugular port catheter tip projects over superior vena cava. No pneumothorax. DICTATION LOCATION: Location [address] [place] [address] Katelyn Jack MD DIAGNOSTIC IMAGING O RDERABLES * XR FLUORO CENTRAL VENOUS ACCESS (04/15/2021 11:07 AM NITRO MAN) Anatomical Region Laterality Modality Computed Radiogr aphy 04/15/2021 11:0 7 AM NITRO MAN Impressions 04/15/2021 11:25 AM NITRO MAN IMPRESSION: 1. Intraoperative fluoroscopic guidance, as above. DICTATION LOCATION: Location [address] [place] [address] Narrative 04/15/2021 11:25 AM NITRO MAN EXAMINATION: XR FLUORO CENTRAL VENOUS ACCESS HISTORY: Line Placement; Malignant neoplasm of splenic flexure COMPARISON: CT performed 03/10/2021 FINDINGS: Intraoperative fluoroscopic guidance is provided totaling 29 seconds of fluoroscopy time with estimated dose of 6.15 mGy (reference air KERMA) over 2 exposures during reported surgical placement of a right internal jugular approach Port-A-Cath. Please see the dedicated operative report for further details. Procedure Note Vikas Beal MD - 04/15/2021 EXAMINATION: XR FLUORO CENTRAL VENOUS ACCESS HISTORY: Line Placement; Malignant neoplasm of splenic flexure COMPARISON: CT performed 03/10/2021 FINDINGS: Intraoperative fluoroscopic guidance is provided totaling 29 seconds of fluoroscopy time with estimated dose of 6.15 mGy (reference air KERMA) over 2 exposures during reported surgical placement of a right internal jugular approach Port-A-Cath. Please see the dedicated operative report for further details. IMPRESSION: 1. Intraoperative fluoroscopic guidance, as above. DICTATION LOCATION: Location 1 - [facility] Katelyn Jack MD DIAGNOSTIC IMAGING O RDERABLES * POC , URINE (04/15/2021 6:10 AM NITRO MAN) HCG QUAL URINE Negative Negative 04/15/2021 6:10 AM NITRO MAN [facility] ENVIRONMENTAL PROTECTION FORESTER NAME POC ADRIANNE Bergman 04/15/2021 6:10 AM NITRO MAN [facility] Urine 04/15/2021 6:10 AM NITRO MAN 04/15/2021 7:51 AM NITRO MAN Katelyn Jack MD [facility]INT [facility] CARE [facility] [id number] [address] [place] [address] documented in this encounter Visit Diagnoses Not on filedocumented in this encounter Administered Medications Inactive Administered Medications - up to 3 most recent administrations Medication Order MAR Action Action Date Dose Rate Site acetaminophen (TYLENOL) tablet 650 mg 650 mg, Oral, POST-PROCEDURE ONCE, 1 dose, Starting on Estefany 04/15/21 at 1234, Until Estefany 04/15/21 at 1249, Routine Given 04/15/2021 12:49 PM NITRO MAN 650 mg bupivacaine-EPINEPH rine (SENSORCAINE-EPINEP HRINE) 0.25 %-1:200,000 injection INTRA-PROCEDURE PRN, Starting on Estefany 04/15/21 at 1059, Until Estefany 04/15/21 at 1109, Routine, Intra-op Given 04/15/2021 10:59 AM NITRO MAN 10 mL Operative Site fentaNYL PF (SUBLIMAZE) 50 mcg/mL injection 50 mcg 50 mcg, IV, POST-PROCEDURE Q 3 MINUTES PRN, 5 doses, Starting on Estefany 04/15/21 at 0620, Until Estefany 04/15/21 at 1635, Pain, Routine, PACU heparin, porcine (pf) 10 unit/mL IV syringe INTRA-PROCEDURE PRN, Starting on Estefany 04/15/21 at 1059, Until Estefany 04/15/21 at 1109, Routine, Intra-op Given 04/15/2021 10:59 AM NITRO MAN 90 Units Operative Site lactated ringers infusion IV, at 30 mL/hr, POST-PROCEDURE CONTINUOUS, Starting on Estefany 04/15/21 at 0630, Until Estefany 04/15/21 at 1635, Routine, PACU lactated ringers infusion IV, at 125 mL/hr, PRE-PROCEDURE CONTINUOUS, Starting on Estefany 04/15/21 at 0715, Until Estefany 04/15/21 at 1635, Routine Continue from Pre-Op 04/15/2021 10:16 AM NITRO MAN 125 mL/hr New Bag 04/15/2021 7:34 AM NITRO MAN 125 mL/hr morphine 4 mg/mL injection 2 mg 2 mg, IV, POST-PROCEDURE Q 5 MINUTES PRN, 10 doses, Starting on Estefany 04/15/21 at 0620, Until Estefany 04/15/21 at 1635, Pain, Routine, PACU naloxone (NARCAN) 0.4 mg/mL injection 0.1 mg 0.1 mg, IV, SEE ADMIN INSTRUCTIONS, Starting on Estefany 04/15/21 at 0620, Until Estefany 04/15/21 at 1635, Routine, PACU ondansetron (ZOFRAN) 4 mg/2 mL injection 4 mg 4 mg, IV, POST-PROCEDURE ONCE PRN, 1 dose, Starting on Estefany 04/15/21 at 0620, Until Estefany 04/15/21 at 1635, Nausea/Emesis, Routine, PACU oxyCODONE-acetaminophen (PERCOCET) 5-325 mg per tablet 1 Tablet 1 Tablet, Oral, EVERY 4 HOURS PRN, Starting on Estefany 04/15/21 at 1111, Until Estefany 04/15/21 at 1635, Pain, Routine prochlorperazine (COMPAZINE) injection 5 mg 5 mg, IV, POST-PROCEDURE ONCE PRN, 1 dose, Starting on Estefany 04/15/21 at 0620, Until Estefany 04/15/21 at 1635, Nausea/Emesis, Routine, PACU documented in this encounter Active and Recently Administered Medications Times are shown in NITRO MAN. Scheduled Medication Order 04/13/2021 04/14/2021 04/15/2021 acetaminophen (TYLENOL) tablet 650 mg (COMPLETED) 650 mg, Oral, POST-PROCEDURE ONCE, 1 dose, Starting on Estefany 04/15/21 at 1234, Until Estefany 04/15/21 at 1249, Routine 1249 (Given - Provid er: Merlene Santizo RN) ceFAZolin in sterile water (ANCEF) 2 gram/20 mL IV Syringe (PREMIX) 2,000 mg (COMPLETED) 2,000 mg, IV, PRE-PROCEDURE ONCE, 1 dose, Starting on Estefany 04/15/21 at 0700, Until Estefany 04/15/21 at 1034, Routine, Pre-op, Antibiotic Indication: Surgical prophylaxis 1034 (Given - Provid er: IZZY Glass) lidocaine 2 % (XYLOCAINE) injection 0.3 mL 0.3 mL, Infiltration, ONE TIME ONLY, 1 dose, On Estefany 04/15/21 at 0715, Routine 0715 (Refused - Prov ider: Patricia Govea RN) naloxone (NARCAN) 0.4 mg/mL injection 0.1 mg 0.1 mg, IV, SEE ADMIN INSTRUCTIONS, Starting on Estefany 04/15/21 at 0620, Until Estefany 04/15/21 at 1635, Routine, PACU Continuous Medication Order 04/13/2021 04/14/2021 04/15/2021 lactated ringers infusion IV, at 30 mL/hr, POST-PROCEDURE CONTINUOUS, Starting on Estefany 04/15/21 at 0630, Until Estefany 04/15/21 at 1635, Routine, PACU 0630 (Due) lactated ringers infusion IV, at 125 mL/hr, PRE-PROCEDURE CONTINUOUS, Starting on Estefany 04/15/21 at 0715, Until Estefany 04/15/21 at 1635, Routine 0734 (New Bag - Prov ider: Patricia Govea RN)1016 (Continue from Pre-Op - Provider: IZZY Glass) PRN Medication Order 04/13/2021 04/14/2021 04/15/2021 bupivacaine-EPINEPHrine (SENSORCAINE-EPINEPHRINE) 0.25 %-1:200,000 injection (CANCELED) INTRA-PROCEDURE PRN, Starting on Estefany 12/21 at 1059, Until Estefany 04/15/21 at 1109, Routine, Intra-op 1059 (Given - Provid er: Katelyn Jack MD) fentaNYL PF (SUBLIMAZE) 50 mcg/mL injection 50 mcg 50 mcg, IV, POST-PROCEDURE Q 3 MINUTES PRN, 5 doses, Starting on Estefany 1221 at 0620, Until Estefany 04/15/21 at 1635, Pain, Routine, PACU heparin, porcine (pf) 10 unit/mL IV syringe (CANCELED) INTRA-PROCEDURE PRN, Starting on Estefany 04/15/21 at 1059, Until Estefany 04/15/21 at 1109, Routine, Intra-op 1059 (Given - Provid er: Katelyn Jack MD) morphine 4 mg/mL injection 2 mg 2 mg, IV, POST-PROCEDURE Q 5 MINUTES PRN, 10 doses, Starting on Estefany 12 at 0620, Until Estefany 04/15/21 at 1635, Pain, Routine, PACU ondansetron (ZOFRAN) 4 mg/2 mL injection 4 mg 4 mg, IV, POST-PROCEDURE ONCE PRN, 1 dose, Starting on Estefany 12 at 0620, Until Estefany 04/15/21 at 1635, Nausea/Emesis, Routine, PACU oxyCODONE-acetaminophen (PERCOCET) 5-325 mg per tablet 1 Tablet 1 Tablet, Oral, EVERY 4 HOURS PRN, Starting on Estefany 12 at 1111, Until Estefany 12 at 1635, Pain, Routine 1223 (Due) prochlorperazine (COMPAZINE) injection 5 mg 5 mg, IV, POST-PROCEDURE ONCE PRN, 1 dose, Starting on Estefany 1221 at 0620, Until Estefany 12 at 1635, Nausea/Emesis, Routine, PACU documented in this encounter Care Teams Nurse Extern Relationship Specialty Start Date End Date Cornelio Rayo DO [address] [facility] [address] [facility] [address] [place] [address] PCP - General Internal Medicine 03/08/21 09/11/22 documented as of this encounter
--- OUTSIDE RECORDS SUMMARY | 2024-05-06 09:05 | XMS_ITS | Encounter Summary ---
Author Organization [facility] Address [address] [place] [address] Care Team Providers Care Veterinary Laboratory Diagnostician Name Role Phone Cornelio Rayo DO Primary Care Provider [phone] Reason for Visit * Reason Onset Date Comments Medication Refill 04/22/2021 Encounter Details Date Type Department Care Team ([facility] Contact Info) Description 04/22/2021 Refill [facility] Oncology and Hematology [place] [address] [place] [address] Yosef Salmeron MD [address] [facility] [address] [place] [address] Social History Tobacco Use Types Packs/Day [...] COVID-19? No / Unsure 04/15/2021 7:08 AM CRANE SERVICE TECHNICIAN documented as of this encounter Plan of Treatment Upcoming Encounters Date Type Department Care Team (Late Contact Info) Description 06/13/2024 10:15 AM CRANE SERVICE TECHNICIAN Office Visit [facility] Oncology and Hematology [facility] [address] [place] [address] Yosef Salmeron MD [address] [facility] [address] [place] [address] documented as of this encounter Visit Diagnoses Not on filedocumented in this encounter Care Teams Veterinary Laboratory Diagnostician Relationship Specialty Start Date End Date Cornelio Rayo DO [address] [facility] [address] [place] [address] PCP - General Internal Medicine 03/08/21 09/11/22 documented as of this encounter
--- OUTSIDE RECORDS SUMMARY | 2024-05-06 09:05 | XMS_ITS | Encounter Summary ---
Author Organization [facility] [employer] [facility] Address [address] [place] [address] Care Team Providers Care Speech Therapy Director Name Role Phone Cornelio Rayo DO Primary Care Provider [phone] Encounter Details Date Type Department Care Team (Late Contact Info) Description 05/17/2021 Orders Only [facility] Oncology and Hematology - [place] [address] [place] [address] Yosef Salmeron MD [address] [facility] [employer] [address] [place] [address] Malignant neoplasm of transverse colon [...] COVID-19? No / Unsure 05/12/2021 9:56 AM PEDICURIST documented as of this encounter Plan of Treatment Upcoming Encounters Date Type Department Care Team (Late Contact Info) Description 06/13/2024 10:15 AM PEDICURIST Office Visit [facility] Oncology and Hematology - [place] [address] [facility] [address] [place] [address] Yosef Salmeron MD [address] [facility] [address] [place] [address] documented as of this encounter Visit Diagnoses Diagnosis Malignant neoplasm of transverse colon documented in this encounter Care Teams Speech Therapy Director Relationship Specialty Start Date End Date Cornelio Rayo DO [address] [facility] [address] [facility] [address] [place] [address] PCP - General Internal Medicine 03/08/21 09/11/22 documented as of this encounter
--- OUTSIDE RECORDS SUMMARY | 2024-05-06 09:05 | XMS_ITS | Encounter Summary ---
Author Organization [facility] [facility] Address [address] [place] [address] Care Team Providers Care Event Promoter Name Role Phone Cornelio Rayo DO Primary Care Provider [phone] Encounter Details Date Type Department Care Team ([facility] Contact Info) Description 04/23/2021 Orders Only [facility] Oncology and Hematology [facility] [address] [place] [address] Yosef Salmeron MD [facility] [employer] [address] [address] Social History Tobacco Use Types Packs/Day [...] COVID-19? No / Unsure 04/15/2021 7:08 AM SUPERVISOR STRIPPING documented as of this encounter Plan of Treatment Upcoming Encounters Date Type Department Care Team (Late Contact Info) Description 06/13/2024 10:15 AM SUPERVISOR STRIPPING Office Visit [facility] Oncology and Hematology [place] [address] [place] [address] Yosef Salmeron MD [address] [facility] [address] [place] [address] documented as of this encounter Visit Diagnoses Not on filedocumented in this encounter Care Teams Event Promoter Relationship Specialty Start Date End Date Cornelio Rayo DO [address] [facility] [address] [place] [address] PCP - General Internal Medicine 03/08/21 09/11/22 documented as of this encounter
--- OUTSIDE RECORDS SUMMARY | 2024-05-06 09:05 | XMS_ITS | Encounter Summary ---
Author Organization [facility] Address [address] [facility] Attn: Epic Prelude ADT [place] [address] Care Team Providers Care U.S. Revenue Officer Name Role Phone Cornelio Rayo DO Primary Care Provider [phone] Encounter Details Date Type Department Care Team (Latest Contact Info) Description 04/15/2021 Travel Social History Tobacco Use Types Packs/Day [...] COVID-19? No / Unsure 04/15/2021 7:08 AM HORSE TRAINER documented as of this encounter Plan of Treatment Upcoming Encounters Date Type Department Care Team (Late st Contact Info) Description 06/13/2024 10:15 AM HORSE TRAINER Office Visit [facility] Oncology and Hematology - Neymar [address] [facility] [address] [place] [address] Yosef Salmeron MD [address] [facility] [address] [place] [address] documented as of this encounter Visit Diagnoses Not on filedocumented in this encounter Care Teams U.S. Revenue Officer Relationship Specialty Start Date End Date Cornelio Rayo DO [address] [facility] [address] [facility] [address] [place] [address] PCP - General Internal Medicine 03/08/21 09/11/22 documented as of this encounter
--- OUTSIDE RECORDS SUMMARY | 2024-05-06 09:05 | XMS_ITS | Encounter Summary ---
Author Organization [facility] Address [address] [place] [address] Care Team Providers Care Electronic Scale Tester Name Role Phone Cornelio Rayo Primary Care Provider Encounter Details Date Type Department Care Team (Latest Contact Info) Description 04/14/2021 9:05 AM RETAIL SALES ASSISTANT - 04/14/2021 11:59 PM RETAIL SALES ASSISTANT Hospital Encounter [facility] Pre Procedure Viral Testing [address] [address] Discharge Disposition: Home or Self Care Social [...] have Coronavirus / COVID-19? No / Unsure 04/14/2021 9:46 AM RETAIL SALES ASSISTANT documented as of this encounter Medications at Time of Discharge Medication Sig Dispensed Refills Start Date End Date ondansetron (ZOFRAN ODT) 4 mg Tablet, Rapid Dissolve Take 1 Tablet by mouth every 6 hours as needed for Nausea/Emesis. Dissolve tablet on top of tongue, then swallow with saliva. 24 Tablet 03/28/2021 04/22/2021 documented as of this encounter Plan of Treatment Upcoming Encounters Date Type Department Care Team (Late st Contact Info) Description 06/13/2024 10:15 AM RETAIL SALES ASSISTANT Office Visit [facility] Oncology and Hematology - Neymar [address] [facility] [address] [place] [address] Yosef Salmeron MD [address] [facility] [address] [place] [address] documented as of this encounter Procedures Procedure Name Priority Date/Time Associated Diagnosis Comments 2019 NOVEL CORONAVIRUS (COVID-19) PCR DETECTION Routine 04/14/2021 9:06 AM RETAIL SALES ASSISTANT Preop testing documented in this encounter Results * 2019 NOVEL CORONAVIRUS (COVID-19) PCR DETECTION (04/14/2021 9:06 AM RETAIL SALES ASSISTANT) COVID-19 PCR NOT DETECTED Not Detected 04/14/20 3:20 PM RETAIL SALES ASSISTANT [facility] PERFORM[facility] 04/14/2021 3:20 PM RETAIL SALES ASSISTANT [facility] Upper Respiratory ENTIRE NASOPHARYNX / Unknown Collection / Unknown 04/14/2021 9:06 AM RETAIL SALES ASSISTANT 04/14/2021 10:52 AM RETAIL SALES ASSISTANT Narrative [facility] - 04/14/2021 3:20 PM RETAIL SALES ASSISTANT This test has been authorized by the [...] 2019-Novel Coronavirus. Katelyn Jack MD MICROBIOLOGY - GENER AL ORDERABLES [facility] CLIA# [id number] [address] [place] [address] documented in this encounter Visit Diagnoses Diagnosis Preop testing Preoperative examination, unspecified documented in this encounter Care Teams Electronic Scale Tester Relationship Specialty Start Date End Date Cornelio Rayo DO [address] [address] PCP - General Internal Medicine 03/08/21 09/11/22 documented as of this encounter
--- OUTSIDE RECORDS SUMMARY | 2024-05-06 09:05 | XMS_ITS | Encounter Summary ---
Author Organization [facility] Address [address] [place] [address] Care Team Providers Care Clinical Support Tech Name Role Phone Cornelio Rayo DO Primary Care Provider [phone] Encounter Details Date Type Department Care Team (Late Contact Info) Description 04/13/2021 Prep for Surgery [facility] [place] [address] [place] [address] Laurie Hodges, RN Malignant neoplasm of splenic flexure (Primary Dx) Social History Tobacco Use Types [...] Coronavirus / COVID-19? No / Unsure 04/13/2021 11:37 AM CREDIT ADMINISTRATION MANAGER documented as of this encounter Plan of Treatment Upcoming Encounters Date Type Department Care Team (Late Contact Info) Description 06/13/2024 10:15 AM CREDIT ADMINISTRATION MANAGER Office Visit [facility] Oncology and Hematology - Neymar [address] [facility] [address] [place] [address] Yosef Salmeron MD [address] [facility] [address] [place] [address] documented as of this encounter Visit Diagnoses Diagnosis Malignant neoplasm of splenic flexure- Primary documented in this encounter Care Teams Clinical Support Tech Relationship Specialty Start Date End Date Cornelio Rayo DO [address] [facility] [address] [place] [address] PCP - General Internal Medicine 03/08/21 09/11/22 documented as of this encounter
--- OUTSIDE RECORDS SUMMARY | 2024-05-06 09:05 | XMS_ITS | Encounter Summary ---
Author Organization [facility] Address [address] [facility] Attn: Epic Prelude ADT [place] [address] Care Team Providers Care Oxyhydrogen Welder Name Role Phone Cornelio Rayo DO Primary Care Provider [phone] Encounter Details Date Type Department Care Team (Latest Contact Info) Description 06/01/2021 Travel Social History Tobacco Use Types Packs/Day [...] COVID-19? No / Unsure 06/01/2021 8:32 AM PIGMENT PUMPER documented as of this encounter Plan of Treatment Upcoming Encounters Date Type Department Care Team (Late st Contact Info) Description 06/13/2024 10:15 AM PIGMENT PUMPER Office Visit [facility] Oncology and Hematology - Neymar [address] [facility] [address] [place] [address] Yosef Salmeron MD [address] [facility] [address] [place] [address] documented as of this encounter Visit Diagnoses Not on filedocumented in this encounter Care Teams Oxyhydrogen Welder Relationship Specialty Start Date End Date Cornelio Rayo DO [address] [facility] 162 [facility] [address] [place] [address] PCP - General Internal Medicine 03/08/21 09/11/22 documented as of this encounter
--- OUTSIDE RECORDS SUMMARY | 2024-05-06 09:05 | XMS_ITS | Encounter Summary ---
Author Organization [facility] Address [address] [place] [address] Care Team Providers Care Automotive Title Clerk Name Role Phone PerriNathane Gonzalez MOSER Primary Care Provider [phone] Reason for Visit * Auth/Cert Specialty Diagnoses / Procedures Referred By Sandy t Referred To Contact Katelyn Jack MD [address] [address] Referral ID Status Reason Start Date Expiration Date Visits Re quested Visits Authorized [id number] 04/13/2021 1 1 Encounter Details Date Type Department Care Team (Latest Contact Info) Description 04/15/2021 5:49 AM MANAGER MORTGAGE - 04/15/2021 2:35 PM [facility] Hospital Encounter [facility] [address] [place] [address] Katelyn Jack MD [address] [address] Discharge Disposition: Home or Self Care Social [...] COVID-19? No / Unsure 04/15/2021 7:08 AM MANAGER MORTGAGE documented as of this encounter Last Filed Vital Signs Vital Sign Reading Time Taken Comments Blood Pressure 125/73 04/15/2021 2:00 PM MANAGER MORTGAGE Pulse 62 04/15/2021 2:00 PM MANAGER MORTGAGE Temperature 36.2 ??C (97.1 ??F) 04/15/2021 2:00 PM CS T Respiratory Rate 18 04/15/2021 2:00 PM MANAGER MORTGAGE Oxygen Saturation 98% 04/15/2021 2:00 PM MANAGER MORTGAGE Inhaled Oxygen Concentration - - Weight 95.6 kg (210 lb 12.8 oz) 04/15/2021 6:12 AM MANAGER MORTGAGE Height 170.2 cm (5' 7 ) 04/15/2021 6:12 AM MANAGER MORTGAGE Body Mass Index 33.02 04/15/2021 6:12 AM MANAGER MORTGAGE documented in this encounter Discharge Instructions * Discharge Instructions* Merlene Santizo RN - 04/15/2021 11:21 AM MANAGER MORTGAGE [facility] Ambulatory Surgery- Discharge Instructions ACTIVITY: ??? No [...] in our office if needed after surgery [phone] ??? Follow up with oncologist as previously scheduled for chemotherapy ??? If you have any questions, please do not hesitate to call our office. Alternatively, you can sign up for [email or web address] at [email or web address] to make appointments, send Dr. Jack questions, [...] or come to the Emergency Room at [facility] ([phone]) or the nearest Emergency Room. In an emergency, Call 911. GER MORTGAGE documented in this encounter Medications at Time [...] no changes. see my note from 04/12/21. GER MORTGAGE documented in this encounter OR Notes * [...] and interpretation. SURGEON: Katelyn Jack MD ASSISTANTS: Funeral Pre Arrangement Specialist: Madyson Jean RN Scrub: Karishma Hicks RN; [...] Implant Name Type Inv. Item Serial No. Pickle Water Pump Operator Lot No. LRB No. Used Action PORT POWERPORT CLEARVUE 8FR MRI [id number] - [id number] Port PORT POWERPORT CLEARVUE 8FR MRI [id number] CR [employer]ARD[employer] [id number] Right 1 Implanted GER MORTGAGE documented in this encounter Miscellaneous Notes * Treatment Plan - Merlene Santizo RN - 04/15/2021 2:11 PM CST Results were called to Dr. Jack who states its okay for pt to D/C. GER MORTGAGE * Treatment Plan - Merlene Santizo RN - 04/15/2021 11:20 AM CST Potential for pain related to surgical/procedural intervention Interventions: Assess level of pain/comfort utilizing verbal/nonverbal pain scales; assess culturalor worship indicators attached to pain; administer pain medications [...] plan of care reviewed and verbalized understanding GER MORTGAGE * Care Plan - Patricia Govea RN - 04/15/2021 6:57 AM CST Knowledge [...] done, questions answered, pt understands surgical process. GER MORTGAGE documented in this encounter Plan of Treatment Upcoming Encounters Date Type Department Care Team (Late st Contact Info) Description 06/13/2024 10:15 AM MANAGER MORTGAGE Office Visit [facility] Oncology and Hematology - Neymar [address] [facility] [address] [place] [address] Yosef Salmeron MD [address] [facility] [address] [place] [address] documented as of this encounter Procedures Procedure Name Priority Date/Time Associated Diagnosis Comments XR CHEST PA OR AP 1 VW Stat 04/15/2021 1:09 PM MANAGER MORTGAGE XR FLUORO CENTRAL VENOUS ACCESS Routine 04/15/2021 11:07 AM MANAGER MORTGAGE RETIRED CENTRAL VENOUS ACCESS INSERTION 04/15/2021 9:47 AM MANAGER MORTGAGE POC , URINE Routine 04/15/2021 6:10 AM MANAGER MORTGAGE documented in this encounter Results * XR CHEST PA OR AP 1 VW (04/15/2021 1:09 PM MANAGER MORTGAGE) Anatomical Region Laterality Modality Chest Computed Radiogr aphy 04/15/2021 1:09 PM MANAGER MORTGAGE Impressions 04/15/2021 1:27 PM MANAGER MORTGAGE IMPRESSION: ?? Right internal jugular port catheter tip projects over superior vena cava. No pneumothorax. ?? DICTATION LOCATION: Location 1 - [facility] ?? Narrative 04/15/2021 1:27 PM MANAGER MORTGAGE EXAMINATION: XR CHEST PA OR AP 1 [...] vena cava. No pneumothorax. DICTATION LOCATION: Location [address] [place] [address] Katelyn Jack MD DIAGNOSTIC IMAGING O RDERABLES * XR FLUORO CENTRAL VENOUS ACCESS (04/15/2021 11:07 AM MANAGER MORTGAGE) Anatomical Region Laterality Modality Computed Radiogr aphy 04/15/2021 11:0 7 AM MANAGER MORTGAGE Impressions 04/15/2021 11:25 AM MANAGER MORTGAGE IMPRESSION: 1. Intraoperative fluoroscopic guidance, as above. DICTATION LOCATION: Location - [facility] Narrative 04/15/2021 11:25 AM MANAGER MORTGAGE EXAMINATION: XR FLUORO CENTRAL VENOUS ACCESS HISTORY: [...] as above. DICTATION LOCATION: Location 1 - [facility] Katelyn Jack MD DIAGNOSTIC IMAGING O RDERABLES * POC , URINE (04/15/2021 6:10 AM MANAGER MORTGAGE) HCG QUAL URINE Negative Negative 04/15/2021 6:10 AM MANAGER MORTGAGE [facility] OFFICER NAME POC ADRIANNE Bergman 04/15/2021 6:10 AM MANAGER MORTGAGE [facility] Urine 04/15/2021 6:10 AM MANAGER MORTGAGE 04/15/2021 7:51 AM MANAGER MORTGAGE Katelyn Jack MD POINT OF CARE TESTIN G [facility] CLIA# [id number] [address] [place] [place] [address] documented in this encounter Visit Diagnoses Diagnosis 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 documented in this encounter Administered Medications Inactive Administered Medications - up to 3 most recent administrations Medication Order MAR Action Action Date Dose Rate Site acetaminophen (TYLENOL) tablet 650 mg 650 mg, Oral, POST-PROCEDURE ONCE, 1 dose, Starting on Estefany 04/15/21 at 1234, Until Estefany 04/15/21 at 1249, Routine Given 04/15/2021 12:49 PM MANAGER MORTGAGE 650 mg fentaNYL PF (SUBLIMAZE) 50 mcg/mL injection 50 mcg 50 mcg, IV, POST-PROCEDURE Q 3 MINUTES PRN, 5 doses, Starting on Estefany 04/15/21 at 0620, Until Estefany 04/15/21 at 1635, Pain, Routine, PACU lactated ringers infusion IV, at 30 mL/hr, POST-PROCEDURE CONTINUOUS, Starting on Estefany 04/15/21 at 0630, Until Estefany 04/15/21 at 1635, Routine, PACU lactated ringers infusion IV, at 125 mL/hr, PRE-PROCEDURE CONTINUOUS, Starting on Estefany 04/15/21 at 0715, Until Estefany 04/15/21 at 1635, Routine Continue from Pre-Op 04/15/2021 10:16 AM MANAGER MORTGAGE 125 mL/hr New Bag 04/15/2021 7:34 AM MANAGER MORTGAGE 125 mL/hr morphine 4 mg/mL injection 2 [...] Recently Administered Medications Times are shown in MANAGER MORTGAGE. Scheduled Medication Order 04/13/2021 04/14/2021 04/15/2021 acetaminophen [...] injection (CANCELED) INTRA-PROCEDURE PRN, Starting on Estefany 04/15/21 [...] Until Estefany 04/15/21 at 1635, Pain, Routine 1223 (Due) prochlorperazine (COMPAZINE) injection 5 mg 5 mg, IV, POST-PROCEDURE ONCE PRN, 1 dose, Starting on Estefany 04/15/21 at 0620, Until Estefany 04/15/21 at 1635, Nausea/Emesis, Routine, PACU documented in this encounter Care Teams Automotive Title Clerk Relationship Specialty Start Date End Date Cornelio Rayo DO [address] [facility] [address] [place] [address] PCP - General Internal Medicine 03/08/21 09/11/22 documented as of this encounter
--- OUTSIDE RECORDS SUMMARY | 2024-05-06 09:05 | XMS_ITS | Encounter Summary ---
Author Organization [facility] Address [address] [place] [address] Care Team Providers Care American Board Certified Orthotist Name Role Phone Cornelio Rayo DO Primary Care Provider [phone] Reason for Visit * Reason Comments Follow Up Chemotherapy F/u with Tx and labs Encounter Details Date Type Department Care Team (Late st Contact Info) Description 06/01/2021 8:30 AM GAS METER REPAIRER Office Visit [facility] Oncology and Hematology - [place]ym[place] [address] [place] [address] [facility] 200 [place] [address] Yosef Salmeron MD [address] [facility] [address] [place] [address] Chronic anemia (Primary Dx); Malignant neoplasm of transverse colon [...] COVID-19? No / Unsure 06/01/2021 8:32 AM GAS METER REPAIRER documented as of this encounter Last Filed Vital Signs Vital Sign Reading Time Taken Comments Blood Pressure 163/96 06/01/2021 8:54 AM GAS METER REPAIRER Pulse 71 06/01/2021 8:54 AM GAS METER REPAIRER Temperature 36.7 ??C (98 ??F) 06/01/2021 8:54 AM GAS METER REPAIRER Respiratory Rate - - Oxygen Saturation 97% 06/01/2021 8:54 AM GAS METER REPAIRER Inhaled Oxygen Concentration - - Weight 102.9 kg (226 lb 14.4 oz) 06/01/2021 8:54 AM GAS METER REPAIRER Height 170.2 cm (5' 7 ) 06/01/2021 8:54 AM GAS METER REPAIRER Body Mass Index 35.54 06/01/2021 8:54 AM GAS METER REPAIRER documented in this encounter Progress Notes * Yosef Salmeron MD - 06/01/2021 10:49 AM CST HEMATOLOGY / ONCOLOGY PROGRESS NOTE [...] visit and continuation of chemotherapy. She has gained 6pound weight. Complain of constipation. Denies any neuropathy. No other new complaints. Review of system Constitutional: denies fevers, sweats, complain of tiredness and fatigue and 6 pound weight gain HEENT: denies sinus [...] dizziness Skin: No lumps, bumps or rashes. 12 [...] 3.7 hemoglobin 10.7 platelet 152,000 creatinine 0.7 Assessment: Plan: Patient Active Problem [...] chemotherapy with FOLFOX in 04/26/2021. Labs noted. We will proceed with cycle 3 of chemotherapy with FOLFOX today. So far she is tolerating treatment well. I plan to see her back in 2 weeks. Anemia. I will order iron and vitamin B12 level. I have instructed her to take oral iron once a dayalong with vitamin B12 every day. Leukopenia and neutropenia. WBC count has improved. Right middle lobe lung nodule. We will repeat CT chest after 6 cycles of chemotherapy. TOBACCO COUNSELING She is not a tobacco user. . 06/01/2021 Yosef Salmeron MD METER REPAIRER documented in this encounter Plan of Treatment Upcoming Encounters Date Type Department Care Team (Late st Contact Info) Description 06/13/2024 10:15 AM GAS METER REPAIRER Office Visit [facility] Oncology and Hematology - Neymar [address] [facility] [address] [place] [phone] Yosef Salmeron MD [address] [facility] [address] [place] [address] Scheduled Orders Name Type Priority Associated Diagnoses Orde r Schedule FERRITIN Lab Routine Chronic anemia Expected: 06/01/2021, Expires: 06/01/2022 IRON, TIBC, AND PERCENT SATURATION Lab Routine Chronic anemia Expected: 06/01/2021, Expires: 06/01/2022 VITAMIN B12 LEVEL Lab Routine Chronic anemia Expected: 06/01/2021, Expires: 06/01/2022 BASIC METABOLIC PANEL Lab Stat Malignant neoplasm of transverse colon Expected: 06/15/2021, Expires: 06/01/2022 CBC WITH DIFFERENTIAL Lab Stat Malignant neoplasm of transverse colon Expected: 06/15/2021, Expires: 06/01/2022 documented as of this encounter Visit Diagnoses Diagnosis Chronic anemia- Primary Anemia, unspecified Malignant neoplasm of transverse colon documented in this encounter Care Teams American Board Certified Orthotist Relationship Specialty Start Date End Date Cornelio Rayo DO [address] [facility] [address] [facility] [address] [place] [address] PCP - General Internal Medicine 03/08/21 09/11/22 documented as of this encounter
--- OUTSIDE RECORDS SUMMARY | 2024-05-06 09:06 | XMS_ITS | Encounter Summary ---
Author Organization [facility] Address [address] [place] [address] Care Team Providers Care Medical Billing Manager Name Role Phone Cornelio Rayo DO Primary Care Provider [phone] Reason for Visit * Auth/Cert Specialty Diagnoses / Procedures Referred By Contac t Referred To Contact Procedures CA LAP,SURG,COLECTOMY, PARTIAL, W/ANAST Katelyn Jack MD [address] [address] Referral ID Status Reason Start Date Expiration Date Visits Re quested Visits Authorized [id number] 03/10/2021 1 1 Encounter Details Date Type Department Care Team (Late st Contact Info) Description 03/26/2021 11:30 AM BIG DATA DEVELOPER - 03/26/2021 5:14 PM BIG DATA DEVELOPER Surgery [facility] Operating Room [address] [place] [id number] Katelyn Jack MD [address] [place] [id number] SPLENIC FLEXURE MOBILIZATION DAVINCI XI Surgery Details Date/Time Status Location OR Service Patient Class Case Class Case Type Trauma Case? 03/26/2021 11:30 AM Posted [facility] OR MAIN OR 27 General Surgery Surgery Admit Elective No Panel 1 Procedure LRB Anes Op Region Wound Class Comments SPLENIC FLEXURE MOBILIZATION DAVINCI XI N/A General Abdomen Clean Contaminated-II DAVINCI SPLENIC FLEXURE RESECTION WITH PRIMARY ANASTOMOSIS N/A General Abdomen Clean Contaminated-II IV INJECTION OF AGENT FOR VASCULAR FLOW IN FLAP OR GRAFT Clean Cont aminated-II Surgeon Surgeon Role Service Panel Katelyn Jack [...] have Coronavirus / COVID-19? No / Unsure 03/26/2021 10:52 AM BIG DATA DEVELOPER documented as of this encounter Last Filed Vital Signs Vital Sign Reading Time Taken Comments Blood Pressure 133/66 03/26/2021 9:51 AM BIG DATA DEVELOPER Pulse 100 03/26/2021 9:51 AM BIG DATA DEVELOPER Temperature 36.4 ??C (97.5 ??F) 03/26/2021 9:51 AM CS T Respiratory Rate 18 03/26/2021 9:51 AM BIG DATA DEVELOPER Oxygen Saturation 97% 03/26/2021 9:51 AM BIG DATA DEVELOPER Inhaled Oxygen Concentration - - Weight 96 kg (211 lb 11.2 oz) 03/26/2021 9:51 AM BIG DATA DEVELOPER Height 170.2 cm (5' 7 ) 03/26/2021 9:51 AM BIG DATA DEVELOPER Body Mass Index 33.16 03/26/2021 9:51 AM BIG DATA DEVELOPER documented in this encounter Discharge Summaries * Althea Davies MD - 03/28/2021 12:19 PM CST Surgical Discharge Summary Patient Name Mary Earl Age 51 y.o. Gender female Date of 1970 CSN [id number] Attending Physician Katelyn Jack MD Discharging Physician MD STEPH Song Eddie L, DO Admit Date 03/26/2021 Discharge Date 03/28/2021 Length of Stay LOS: 2 days Follow-up & Outstanding Issues/Tests: Follow-up with Dr Jack in 2 week(s). Hospital Course: Mary Earl is a 51 y.o. female who was admitted to [facility] on 03/26/2021 after undergoing a robotic assisted splenic flexure resection for management of colon cancer. She tolerated the procedure well and was transferred to the surgical floor. Her hospital stay was uneventful and she had return of bowel function on POD # 1. She tolerated a low fiber diet and her pain was adequately controlled. Physical exam at the time of dismissal: BP 137/79 (BP Location: Left arm, Patient Position (BP): Supine) Pulse 60 Temp 98.1 ??F (36.7 ??C) (Oral) Resp 18 Ht 5' 7 (1.702 m) Wt 96 kg (211 lb 11.2 oz) SpO2 98% BMI 33.16 kg/m?? General appearance: alert, in no distress Lungs: clear to auscultation bilaterally, normal respiratory effort Heart: normal rate, regular rhythm, normal S1, S2, no murmurs, rubs, clicks or gallops Abdomen: Soft, appropriate incisional tenderness. Wound: clean, dry, intact Extremities: extremities normal, atraumatic, no cyanosis or edema Neurologic: Grossly normal Problems Addressed (Secondary Diagnoses): Active Hospital Problems Diagnosis ??? Malignant neoplasm of transverse colon Resolved Hospital Problems No resolved problems to display. Procedures performed: Procedure(s) (LRB): SPLENIC FLEXURE MOBILIZATION DAVINCI XI (N/A) DAVINCI SPLENIC FLEXURE RESECTION WITH PRIMARY ANASTOMOSIS (N/A) IV INJECTION OF AGENT FOR VASCULAR FLOW IN FLAP OR GRAFT Pathology report pending at the time of dismissal MEDICATIONS Prior to admission: Medications Prior to Admission Medication Sig Dispense Refill Last Dose ??? ondansetron (ZOFRAN ODT) 4 mg Tablet, Rapid Dissolve Take 1 Tablet (4 mg) by mouth every 8 hours as needed for Nausea/Emesis. Dissolve tablet on top of tongue, then swallow with saliva. 3 Tablet 0 03/25/2021 at Unknown time ??? neomycin (MYCIFRADIN) 500 mg tablet Take 2 Tablets (1,000 mg) by mouth see administration instructions. 2 tabs PO at 1PM 2pm and 10pm day before surgery 6 Tablet 0 03/25/2021 at Unknown time ??? metroNIDAZOLE (FLAGYL) 500 mg tablet Take 1 Tablet (500 mg) by mouth see administration instructions. 1 tab PO at 1pm 2pm and 10pm day before surgery 3 Tablet 0 03/25/2021 at Unknown time ??? polyethylene glycol (MIRALAX) 17 gram Powder in Packet Start with once serving in 8 ounces of water twice daily and titrate for 1-2 soft stools daily. You may need to increase dose or frequency or both. 03/25/2021 at Unknown time ??? neomycin (MYCIFRADIN) 500 mg tablet Take 2 Tablets (1,000 mg) by mouth see administration instructions. 2 tabs PO at 1PM 2pm and 10pm day before surgery 6 Tablet 0 ??? metroNIDAZOLE (FLAGYL) 500 mg tablet Take 1 Tablet (500 mg) by mouth see administration instructions. 1 tab PO at 1pm 2pm and 10pm day before surgery 3 Tablet 0 Discharge medications and new prescriptions: Medication List START taking these medications oxyCODONE 5 mg tablet Commonly known as: ROXICODONE Take 1 Tablet (5 mg) by mouth every 4 hours as needed for Pain. Max Daily Amount: 30 mg Signed by: Dr. Althea Davies MD Quantity: 30 Tablet Refills: 0 STOP taking these medications metroNIDAZOLE 500 mg tablet Commonly known as: FLAGYL neomycin 500 mg tablet Commonly known as: MYCIFRADIN ondansetron 4 mg Tablet, Rapid Dissolve Commonly known as: ZOFRAN ODT polyethylene glycol 17 gram Powder in Packet Commonly known as: MIRALAX Where to Get Your Medications These medications were sent to [place] [id number] Hours: Retail 8 AM - 12 AM Daily / ED Service 10 AM - 12 AM Daily ?? oxyCODONE 5 mg tablet Discharged Condition: stable Disposition: Home Patient Instructions: Activity: activity as tolerated and no heavy lifting, pushing, pulling with the implant side for 2 months Nutritional status and in-house recommendations: Current Diet and/or Nutritional Supplementation ordered: DIET FIBER CONTROL Wound Care: As directed. Signed: Althea Davies MD 03/28/2021, 12:19 PM This discharge took less than 30 minutes of time to prepare DATA DEVELOPER documented in this encounter Discharge Instructions * Discharge Instructions* Katelyn Jack MD - 03/26/2021 6:24 PM BIG DATA DEVELOPER Instructions: Low fiber diet until your follow up appointment. (basically, don't eat raw fruits or vegetables.) No lifting over 10 pounds for 3-4 weeks. You are encouraged to walk, including up stairs. Showering is fine. Please don't soak your incisions in a bath for a week. Don't drive a car while taking narcotic pain medicines. Ok to take Tylenol 650 mg every 6 hours; don't exceed 4000 mg of tylenol in a day. Percocet/[place] has tylenol in it; so if you need to take the Percocet/[place] make sure you don't take too much Tylenol. If you have had a portion of your bowel resected a small amount of bleeding with your bowel movements initially is normal. Follow up with Dr. Jack in 2 weeks and call the office at [phone] to make that appointment. Call the office at [phone] for bleeding, increased pain, fevers over 101.0 degrees, redness atyour incisions, or any other problems. Alternatively, you can sign up for [employer] at [email or web address] to make appointments, send Dr. Jack questions, or request medication refills. These online requests are only seen M-F during business hours. DATA DEVELOPER * Attachments The following attachments cannot be sent through Care Everywhere. * Low-Fiber Diet (Portuguese) documented in this encounter Medications at Time of Discharge Medication Sig Dispensed Refills Start Date End Date ondansetron (ZOFRAN ODT) 4 mg Tablet, Rapid Dissolve Take 1 Tablet by mouth every 6 hours as needed for Nausea/Emesis. Dissolve tablet on top of tongue, then swallow with saliva. 24 Tablet 03/28/2021 04/22/2021 documented as of this encounter Progress Notes * Althea Davies MD - 03/27/2021 1:22 PM CST COLON AND RECTAL SURGERY PROGRESS NOTE Admit Date: 03/26/2021 Subjective: The patient's pain control is reported to be satisfactory. The patient denies nausea, denies emesis. Tolerating diet: yes. The appetite is fair. The patient reports 0 BMs in the last 24 hours. Objective: Vitals: 03/26/21 2200 03/27/21 0004 03/27/21 0459 03/27/21 0830 BP: (!) 160/87 (!) 145/82 135/76 128/71 BP Location: Left arm Right arm Left arm Right arm Patient Position (BP): Supine Supine Supine Supine Pulse: 78 68 73 74 Resp: 18 17 16 16 Temp: 98.4 ??F (36.9 ??C) 98 ??F (36.7 ??C) 97.3 ??F (36.3 ??C) 97.7 ??F (36.5 ??C) TempSrc: Oral Oral Oral Oral SpO2: 100% 97% 98% 97% Weight: Height: Intake/Output Summary (Last 24 hours) at 03/27/2021 0859 Last data filed at 03/27/2021 0720 Gross per 24 hour Intake 3050 ml Output 1476 ml Net 1574 ml BP 128/71 (BP Location: Right arm, Patient Position (BP): Supine) Pulse 74 Temp 97.7 ??F (36.5 ??C) (Oral) Resp 16 Ht 5' 7 (1.702 m) Wt 96 kg (211 lb 11.2 oz) SpO2 97% BMI 33.16 kg/m?? General appearance: alert, in no distress Lungs: normal respiratory effort Heart: normal rate, regular rhythm Abdomen: Soft, appropriate incisional tenderness. Wound: clean, dry, intact Extremities: extremities normal, atraumatic, no cyanosis or edema Neurologic: Grossly normal Labs/Imaging/Pathology: Hospital Encounter on 03/26/21 (from the past 24 hour(s)) CBC WITH DIFFERENTIAL Collection Time: 03/27/21 6:14 AM Result Value Ref Range WBC 6.9 4.0 - 9.8 K/uL RBC 4.04 3.90 - 4.90 M/uL HEMOGLOBIN 11.9 11.8 - 14.8 g/dL HEMATOCRIT 37.4 35.5 - 44.0 % MCV 92.6 82.0 - 99.0 fL MCH 29.5 27.2 - 32.6 pg MCHC 31.8 31.5 - 35.5 g/dL RDW 13.6 11.5 - 14.5 % RDW-STDEV 46.6 37.1 - 48.7 fL PLATELETS 220 140 - 350 K/uL BASIC METABOLIC PANEL Collection Time: 03/27/21 6:14 AM Result Value Ref Range SODIUM 141 136 - 145 mmol/L POTASSIUM 3.8 3.5 - 5.0 mmol/L CHLORIDE 106 98 - 107 mmol/L CO2 24 22 - 29 mmol/L CALCIUM 9.0 8.6 - 10.2 mg/dL BUN 6 6 - 20 mg/dL CREATININE 0.71 0.51 - 0.95 mg/dL GLUCOSE 127 (H) 74 - 99 mg/dL GFR >60 mL/min/1.73 sq meter GFR, >60 mL/min/1.73 sq meter ANION GAP 11 8 - 16 mmol/L Assessment: Status post DaVinci splenic flexure colon resection. DaVinci mobilization of the splenic flexure. ICG injection for vascular assessment of the colonic conduit (Firefly) POD # 1 Patient remained hemodynamically stable and afebrile. Labs between normal/expected limits. Awaitingreturn of bowel function. Plan: Nutrition: Current Diet and/or Nutritional Supplementation ordered: FULL LIQUID Decrease IV fluids / IV lock per ERAS Continue pain management with Tylenol, NSAIDs and PO narcotics as needed Activity: ad lois Encouraged deep breathing exercises and incentive spirometer DVT prophylaxis with Lovenox 40 mg SQ daily and SCDs Althea Davies MD 03/27/2021 DATA DEVELOPER documented in this encounter H&P Notes * Katelyn Jack MD - 03/26/2021 12:13 PM CST Subjective: ?? Patient is a 51 y.o. female who I was asked to see at a recent admission for colon mass. Mary Earl came to the ER with episodic abdominal pain after eating, located in her LUQ. She had two episodes; the first on Feb 08, 2021. She took 3d off work at that time. She denied n/v with that episode. She had another episode which started Feb 30 associated with LUQ and LAUREN pain. She had gurgling rufus feeling of things not being able to pass through. She noted maroon stool once the day prior to admission. She has noted a change in her bowel habits with less stool and smaller, harder stools daily. She has had intentional weight loss of 52# in the last 9 months. She has been doing intermittent fasting and healthy diet to achieve this loss. Labs and vitals on arrival were essentially normal; Hb 14.8. She had a CT abd/pelvis on arrival: Segmental colitis of the transverse colon. Given the length of involvement, consider ischemic colitis. ??Lobulated low-attenuation in hepatic segment IVb is likely focal fat. Recommend MRI to confirm. This was followed by a SENIOR BENEFITS SPECIALIST to r/o ischemia: No evidence to suggest hemodynamic compromise to the bowel as described above. Right adnexal cyst. If clinically indicated further evaluation with ultrasound may be beneficial. She had a colonoscopy 03/10/[address] Fung: ??A fungating partially obstructing mass was found in the ?distal transverse colon. The mass was circumferential. The ?mass measured three cm in length. No bleeding was present. ?Biopsies were taken with a cold forceps for histology. Area ?was tattooed with an injection of Spot (carbon black). The ?mass could not be traversed with the colonoscope. An upper ?endoscope was utilized to traverse the stricture, but could ?not be advanced more than a few centimeters beyond the ?stricture due to looping. A pediatric colonoscope could not ?traverse the stricture. The exam was otherwise normal throughout the examined colon. ?? CEA 2.1 CT chest showed a small indeterminate nodule. MRI liver showed no metastatic disease. Pathology Large intestine, transverse colon stricture, endoscopic biopsy: - Adenocarcinoma MMR retained. ?? Prior to this scope she had never had a previous one. No family hx of colon cancer or IBD. Hx of x 2. ? Patient Active Problem List ?? Diagnosis Date Noted ??? Acute colitis ? Abdominal pain 03/08/2021 ??? Hypokalemia 03/08/2021 ?? Past Medical History Past Medical History: Diagnosis Date ??? Patient denies medical problems ? Patient denies relevant medical history ?? Past Surgical History Past Surgical History: Procedure Laterality Date ??? HX SECTION ? HX DILATION AND CURETTAGE ? HX TUBAL LIGATION ? Prescriptions Prior to Admission No medications prior to admission. ?? Allergies Allergen Reactions ??? Sulfa (Sulfonamide Antibiotics) Swelling ??? Unclassified Drug Nausea and Vomiting ? Pt reports does not tolerate anesthesia and pain medications well. Social History ?? Tobacco Use ??? Smoking status: Never Smoker ??? Smokeless tobacco: Never Used Substance Use Topics ??? Alcohol use: No Family History Family History Problem Relation Name Age of Onset ??? Colon Cancer Neg Hx ? Objective: ?? Vitals: 03/26/21 0951 BP: 133/66 Pulse: 100 Resp: 18 Temp: 97.5 ??F (36.4 ??C) SpO2: 97% Gen: NAD. Alert, oriented x3. Lungs: normal respiratory effort Heart: regular rate and rhythm Abdomen: Soft, non-tender. Bowel sounds normal. No masses, no organomegaly. Overweight. Extremities: extremities normal, atraumatic, no cyanosis or edema, moves all extremities equally, normal strength, normal tone Rectum: deferred. ?? Results for orders placed or performed during the hospital encounter of 03/08/21 (from the past 24 hour(s)) GI PATHOGEN PCR PANEL ?? Specimen: Stool Result Value Ref Range ?? GI Pathogen PCR panel No nucleic acids detected. No nucleic acids detected. ? Assessment: ?? Distal transverse colon cancer, likely causing intermittent partial obstruction but not complete obstruction. ?? Plan: Plan daVinci segmental colectomy. The risks, benefits, and possible complications of the proposed procedure were discussed with the patient to include bleeding, pain, infection, damage to local structures, need for further treatments, anastomotic leak, anastomotic stricture, damage to pelvic nerves, hernia, conversion to open procedure, alteration in bowel habits, recurrence, and perianesthetic complications. She understands and agrees to proceed. DATA DEVELOPER documented in this encounter OR Notes * Anesthesiology - Dangelo Rhoades MD - 03/27/2021 9:27 AM CST 03/27/2021 9:27 AM Regional Anesthesia Service Name: Mary Earl Age: 51 y.o. Sex: female CSN: [id number] Chief complaint: Post operative pain POD # 1 Block Type: Bilateral TAP blocks Current pain score: 5/10 Patient sitting in bed, notes moderate pain in upper abdomen. Denies lower abdominal pain. She has been ambulating yesterday and today, multiple times. BP 128/71 (BP Location: Right arm, Patient Position (BP): Supine) Pulse 74 Temp 36.5 ??C (Oral) Resp 16 Ht 5' 7 (1.702 m) Wt 96 kg (211 lb 11.2 oz) SpO2 97% BMI 33.16 kg/m?? Alert: yes Nausea/vomiting: no Oral narcotics tolerated: has not tried. Taking tylenol. Motor block: no Sensory Block: no Injection site: C/D/I - yes, without ecchymosis/edema/erythema LABS Lab Results Component Value Date/Time WBC 6.9 03/27/2021 06:14 AM HEMOGLOBIN 11.9 03/27/2021 06:14 AM HEMATOCRIT 37.4 03/27/2021 06:14 AM PLATELETS 220 03/27/2021 06:14 AM No results found for: INR, PT, PROTIMEPOC Nerve block resolving as anticipated. No apparent complications. Please contact the Regional Anesthesia Service with any questions regarding the nerve block. Dangelo Rhoades MD Pager: [phone] DATA DEVELOPER * Operative Report - Katelyn Jack MD - 03/26/2021 5:51 PM CST SURGEON Katelyn Jack MD PREOPERATIVE DIAGNOSIS Distal transverse colon cancer POSTOPERATIVE DIAGNOSIS same OPERATION NAME DaVinci splenic flexure colon resection. DaVinci mobilization of the splenic flexure. ICG injectionfor vascular assessment of the colonic conduit (Firefly) ANESTHESIA GETA SPECIMEN Splenic flexure ESTIMATED BLOOD LOSS 25 mL. COMPLICATIONS None. IV FLUIDS 2200 cc URINE 300 cc PROCEDURE After appropriate preoperative workup and consent, the patient was brought to the operating room. She was placed supine on the operating table on the [place] and general endotracheal anesthesia was induced. After the induction of general endotracheal anesthesia, a Cook catheter was placed. The patient was then placed in modified low lithotomy position. Both arms were padded and tucked. She was then sterilely prepped and draped after being strapped to the table. The Veress needle was used to access the abdomen in the LUQ. The abdomen was insufflated. Once the pressure was 15 mm Hg I insertedan 8 mm daVinci trocar. No injuries were noted on diagnostic laparoscopy from abdominal entry. There were significant adhesions involving omentum to the low midline. 2 more 8 mm daVinci trocars were placed in a diagonal to the RLQ and a 12 mm trocar was placed in the right lower quadrant, all underdirect visualization. The Airseal was placed in the RUQ. The patient was then placed in steep Trendelenburg and rotated to the right. We docked the robot. I robotically took down the omental adhesions and reflected the omentum superiorly. The tattoo was visible just at the splenic flexure. I examined the left colon. The sigmoid was looped in the pelvis with several interloop adhesions and a few adhesions to the left tube and ovary. These were taken down. The left colon was mobilized medially atthe [place] Line of [place]. The left ureter was identified and left in place. I left the splenic flexure up for now. I identified a left colic coming from the DARCY just below the ligament of treitz. I divided this at its origin between clips. Under this I mobilized the mesentery of the splenic flexure and the descending colon off the retroperitoneum, meeting up under the descending colon with the prior plane of dissection. The sigmoid pedicle was left intact. The splenic flexure was then mobilized from lateral to medial. The mass was noted proximal to the tattoo. The omentum was adherent to the mass so I left a portion of the omentum en bloc with the tumor and divided the omentum. Proximal to the tumor I returned to the normal anatomic plane and mobilized the omentum of the entire transverse colon to the hepatic flexure. I fully mobilized the flexure, taking the mesocolon off the base of the pancreas. I visualized the left branch of the middle colic at its origin at the middle colic and divided this between clips. I then divided the marginal artery at the level of the proximal transverse colon and again at the distal descending colon. The entire vasculature of the splenic flexure for a t least 15 cm on each side of the tumor was now divided. I felt that the lymphadenectomy was adequate and that the transverse colon and the distal descending colon and sigmoid were mobilized enough to be able to make an adequate anastomosis extracorporeally. Firefly showed excellent blood supply up to and distal to the site of the proposed resection. Using the assistant corporation counsel port, my assistant corporation counsel graspedthe colon distal to the mass at the tatoo. I then desufflated the abdomen and made a 5 cm supraumbilical incision. I placed an Jordi wound retractor into the incision and extracted the mobilized splenic flexure including the tumor and distal tattoo. The transected points of the mesentery were easily visible. Extracorporeally, I cleaned up the mesentery from the edges of bowel and created a [id number] functional end-to-end anastomosis from the distal descending colon to the proximal transverse colon with two fires of the [id number] blue stapler.?? The first fire created a [id number] anastomosis and the second fire closed the common enterotomy and divided the specimen simultaneously.?? I passed the specimen off the field where it was examined to find a hard mass proximal to the tattoo withlong pathology free margins.?? I then oversewed the everted staple line with interrupted 3-0 Vicrylin a Lemberted fashion.?? I placed a crotch stitch of 3-0 Vicryl.?? I dropped the anastomosis back intracorporeally.??We all changed gowns and gloves. No irrigation was needed and the blood loss was extremely minimal.??The robot was redocked. Small bowel was pulled out from under the anastomosis and the mesenteric defect was closed with a running 3-0 Vicryl robotically. A well vascularized anastomosis was confirmed with Firefly again. The robot was undocked. Omentum was brought back into the pelvis. The fascia was closed at the 12 mm port with a Grannee needle and 0 Vicryl suture. The Jordi wound retractor was then removed. The fascia was closed with 0 Maxon suture. The subcutaneous tissues were copiously irrigated. The deep dermis was closed with interrupted 3-0 Vicryl and the skin was closed with a running subcuticular Monocryl. Remaining trocars were removed. The subcutaneous tissues of all trocar sites were copiously irrigated and the skin was closed with running subcuticular 4-0Monocryl. All wounds were dressed with skin glue. The patient was awakened, extubated and taken to recovery room in excellent condition. Counts were complete x2 at the termination of the case. DATA DEVELOPER documented in this encounter Miscellaneous Notes * Care Plan - Alia Milian RN - 03/28/2021 5:39 PM CST patient given d/c instructions and new rx. no questions at this time. Pt. Verbalized understanding.Called transportation. IV removed at bedside, pt. tolerated well. Pt left via wheelchair. DATA DEVELOPER * Care Plan - Lindsay Banegas RN - 03/28/2021 5:37 AM CST Pt. Mary Betancur4, complained of mild abdominal pain managed with PRN josseline Pt. Up independently, ambulated down hallway and in room several times. UOP adequate per hat +flatus Tolerating full liquid diet, no N/V Abdominal sites c/d/i binder in place. Call light and belongings in reach, fall precautions maintained, VSS. DATA DEVELOPER * Care Plan - Lindsay Banegas RN - 03/27/2021 6:00 AM CST Pt. Mary Betancur4, complained of mild abdominal pain managed with scheduled medications. Pt. Up with SBA, ambulated in room and down hallway x2 this shift. SCDs on while in bed. UOP adequate per cook, removed this AM per order. Waiting on first void post removal. -BM -flatus Tolerating clear liquid diet, complained of mild nausea managed with PRN zofran, no emesis. IV saline locked per order. Abdominal sites c/d/i binder in place. Call light and belongings in reach, fall precautions maintained, VSS. DATA DEVELOPER * Care Plan - Lindsay Banegas RN - 03/26/2021 10:15 PM CST UNDRESS AND ASSESS FOR ALL ADMISSIONS AND TRANSFERS: Remove all existing dressings and assess all wounds upon admission (unless instructed by physician). Undress and Assess performed by: bedside coworker Lindsay and bedside coworker Jeanine on admission to Trauma and Surgery 4370 Devonte Score: Devonte Score: 22 (03/26/21 1101) 1. Patient does have skin breakdown. ??? If yes o Describe wound location and appearance: surgery sites with skin glue o LDA added for any open areas and for non-blanching pink/red or purple areas? No (please note, heels, ankles, knees, hips, sacrum, coccyx, ischium, gluteal, occiput, spine and all skin folds are high risk for skin breakdown) and consult wound care services 2. Was wound photographed: No 3. Is a specialty support surface utilized? No If yes, which one?: i.e. impaired mobility, bariatric, malnourished, existing pressure injury. 4. Is the patient a paraplegic/quadriplegic? No If so, if stable spine immediately place on specialty surface. If unstable spine or new spinal injury, consult physician (per facility process) and consult wound care services. 5. Is a medical bill processor in place?no If yes, remove device/brace/splint to check skin underneath, obtain provider order if necessary. 6. Does the patient have a wound VAC (negative pressure wound therapy)? No If yes, please consult wound care services and follow facility process. 7. Does the patient have an ostomy? No If yes, please consult wound care services. 8. Was the Skin Care Prevention: Pressure Injury Pathway initiated and appropriate interventions selected? No (Use for prevention of skin issues due to friction, shear, pressure, mobility or moisture issues.) 9. Was the Skin Care Treatment: Pressure Injury/Lower Extremity Ulcer Pathway initiated, and appropriate interventions selected? No (Use for conditions such as: existing pressure injuries, yeast, deep tissue injury, incontinence associated dermatitis, lower extremity ulcers, and skin tears) Wound care consult was not initiated. [facility] Skin Care Injury Prevention and Treatment Protocol [facility] Approved by: [facility] - Medical Executive Committee Approval Date: 05/23/2019 ORDERS ARE ENTERED ???PER PROTOCOL?? Nursing Orders: o When a patient age 18 years or older has: ? a documented Devonte score of 18 or less or a Devonte sub score of 2 or 1, ? or a documented condition on the problem list of: diabetes, malnutrition or cachectic, paralysis,spinal cord disorder/injuries or muscle/neurological disease, THEN, the RN will order the Skin Care/Pressure Injury Prevention Pathway and initiate all appropriate interventions as per the Devonte Risk Assessment Algorithm. o When a patient age 18 years or older has a wound requiring treatment, the RN and Wound Care Nurses may order the Skin Care/Pressure Ulcer/Lower Extremity Ulcer Treatment Pathway and use appropriatetreatments found in the Nursing Algorithm. o The Wound Care Nurse may also order treatments found in the Wound Care Algorithm. DATA DEVELOPER * Care Plan - Terry Cueva RN - 03/26/2021 6:36 PM CST Potential for pain related to surgical/procedural intervention Interventions: Assess level of pain/comfort utilizing verbal/nonverbal pain scales; assess culturalor caodaism indicators attached to pain; administer pain medications as prescribed; utilize non-pharmacologic pain control and comfort measures Expected Outcome: Patient demonstrates and reports adequate pain control Outcome Met: prn meds available, pain well controlled Potential for alteration in thermoregulatory, circulatory, respiratory fluid & electrolyte status Interventions: Perform ongoing physical assessment; maintenance of airway or mechanical ventilation; monitor level of consciousness; initiate safety measures; observe patient???s respiratory status and oxygen saturation; obtain measurements of ongoing hemodynamic parameters, cardiac rhythm, and temperature; monitor intake and output; inspect wound dressings and/or drain output; perform prescribedtherapeutic regimens, treatments and tests; document and/or communicate care given Expected Outcome: Patient will maintain functional status compatible with preoperative status Outcome Met: vss, normothermic, patient able to maintain O2 sats, no bleeding or hematoma from surgical site DATA DEVELOPER * Care Plan - Stephanie Gibbs RN - 03/26/2021 10:25 AM CST Knowledge deficit related to procedure/environment Interventions: Assess learning needs and willingness to learn; give clear, concise explanations of the environment and sequence of events surrounding the periop experience; address patient/family questions and concerns; provide teaching as indicated, provide teaching related to postoperative pain assessment utilizing pain scales Expected Outcome: Patient verbalizes or demonstrates awareness/understanding of surgery and perioperative experience Outcome Met: DATA DEVELOPER documented in this encounter Plan of Treatment Upcoming Encounters Date Type Department Care Team (Late st Contact Info) Description 06/13/2024 10:15 AM BIG DATA DEVELOPER Office Visit [facility] Oncology and Hematology - [place] [address] [place] [address] [address] Yosef Salmeron MD [address] [facility] [address] [place] [address] documented as of this encounter Procedures Procedure Name Priority Date/Time Associated Diagnosis Comments CBC WITH DIFFERENTIAL Routine 03/27/2021 6:14 AM BIG DATA DEVELOPER BASIC METABOLIC PANEL Routine 03/27/2021 6:14 AM BIG DATA DEVELOPER PATHOLOGY Pathology 03/26/2021 4:40 PM BIG DATA DEVELOPER IR INJECTION Routine 03/26/2021 1:55 PM BIG DATA DEVELOPER CA IV INJECTION TEST VASCULAR FLOW FLAP/GRAFT 03/26/2021 11:30 AM BIG DATA DEVELOPER CA LAPS COLECTOMY PRTL W/END CLST & CLSR DSTL SGM 03/26/2021 11:30 AM BIG DATA DEVELOPER CA LAPS MOBLJ SPLENIC FLXR PFRMD W/PRTL COLECTOMY 03/26/2021 11:30 AM BIG DATA DEVELOPER VERIFICATION BLOOD GROUP Stat 03/26/2021 11:11 AM BIG DATA DEVELOPER Encounter for blood typing PREPARE RED BLOOD CELLS Routine 03/26/2021 10:26 AM BIG DATA DEVELOPER PREPARE RED BLOOD CELLS Stat 03/26/2021 10:26 AM BIG DATA DEVELOPER POC , URINE Routine 03/26/2021 10:11 AM BIG DATA DEVELOPER documented in this encounter Results * (ABNORMAL) BASIC METABOLIC PANEL (03/27/2021 6:14 AM BIG DATA DEVELOPER) SODIUM 141 136 - 145 mmol/L 03/27/2021 7:52 AM BIG DATA DEVELOPER [facility] POTASSIUM 3.8 3.5 - 5.0 mmol/L 03/27/2021 7:52 AM BIG DATA DEVELOPER [facility] CHLORIDE 106 98 - 107 mmol/L 03/27/2021 7:52 AM BIG DATA DEVELOPER [facility] . [facility] CO2 24 22 - 29 mmol/L 03/27/2021 7:52 AM BIG DATA DEVELOPER [facility] . [facility] CALCIUM 9.0 8.6 - 10.2 mg/dL 03/27/2021 7:52 AM BIG DATA DEVELOPER [facility] . [facility] BUN 6 6 - 20 mg/dL 03/27/2021 7:52 AM BIG DATA DEVELOPER [facility] . [facility] CREATININE 0.71 0.51 - 0.95 mg/dL 03/27/2021 7:52 AM BIG DATA DEVELOPER [facility] GLUCOSE 127(H) 74 - 99 mg/dL 03/27/2021 7:52 AM BIG DATA DEVELOPER [facility] . [facility] GFR >60 mL/min/1.7 3 sq meter 03/27/2021 7:52 AM BIG DATA DEVELOPER [facility] Comment: eGFR has not been validated for use in the elderly (> 70 years of age), women, patients with serious co-morbid conditions, or persons with extremes of body size or muscle mass and should also be interpreted with caution in patients with acute kidney failure, dialysis dependent patients, patients reporting exceptional dietary intake (e.g. vegetarian diet, high protein diets, creatine supplementation), and patients with severe liver disease. Based on National Kidney Disease Education Program If patient is , please refer to the GFR result. GFR, >60 mL/min/1.7 3 sq meter 03/27/2021 7:52 AM [facility] ANION GAP 11 8 - 16 mmol/L 03/27/2021 7:52 AM [facility] Blood Venipuncture / Unknown 03/27/2021 6:14 AM BIG DATA DEVELOPER 03/27/2021 7:20 AM BIG DATA DEVELOPER Katelyn Jack MD CHEMISTRY ORDERABLES [facility]# [id number] [address] [place] [address] * (ABNORMAL) CBC WITH DIFFERENTIAL (03/27/2021 6:14 AM BIG DATA DEVELOPER) WBC 6.9 4.0 - 9.8 K/uL 03/27/2021 7:38 AM [facility] RBC 4.04 3.90 - 4.90 M/uL 03/27/2021 7:38 AM [facility] HEMOGLOBIN 11.9 11.8 - 14.8 g/dL 03/27/2021 7:38 AM [facility] HEMATOCRIT 37.4 35.5 - 44.0 % 03/27/2021 7:38 AM [facility] [employer] [facility] - [facility] MCV 92.6 82.0 - 99.0 fL 03/27/2021 7:38 AM [facility] MCH 29.5 27.2 - 32.6 pg 03/27/2021 7:38 AM [facility] MCHC 31.8 31.5 - 35.5 g/dL 03/27/2021 7:38 AM BIG DATA DEVELOPER [facility] RDW 13.6 11.5 - 14.5 % 03/27/2021 7:38 AM BIG DATA DEVELOPER [facility] RDW-STDEV 46.6 37.1 - 48.7 fL 03/27/2021 7:38 AM BIG DATA DEVELOPER [facility] PLATELETS 220 140 - 350 K/uL 03/27/2021 7:38 AM BIG DATA DEVELOPER [facility] MPV 10.4 9.3 - 12.4 fL 03/27/2021 7:38 AM BIG DATA DEVELOPER [facility] NEUTROPHILS 87 % 03/27/2021 7:38 AM BIG DATA DEVELOPER [facility] LYMPHOCYTES 6 % 03/27/2021 7:38 AM BIG DATA DEVELOPER [facility] MONOCYTES 7 % 03/27/2021 7:38 AM BIG DATA DEVELOPER [facility] EOSINOPHILS 0 % 03/27/2021 7:38 AM [facility] BASOPHILS 0 % 03/27/2021 7:38 AM [facility] IMMATURE GRANULOCYTES 0 % 03/27/2021 7:38 AM BIG DATA DEVELOPER [facility] NEUTROPHIL ABSOLUTE 6.01 1.90 - 7.00 K/uL 03/27/2021 7:38 AM BIG DATA DEVELOPER [facility] LYMPHOCYTE ABSOLUTE 0.39(L) 0.70 - 4.50 K/uL 03/27/2021 7:38 AM [facility] MONOCYTE ABSOLUTE 0.45 0.10 - 1.30 K/uL 03/27/2021 7:38 AM BIG DATA DEVELOPER [facility] EOSINOPHIL ABSOLUTE 0.01 0.00 - 0.70 K/uL 03/27/2021 7:38 AM BIG DATA DEVELOPER [facility] BASOPHILS ABSOLUTE 0.03 0.00 - 0.20 K/uL 03/27/2021 7:38 AM [facility] IMMATURE GRANULOCYTES ABSOLUTE 0.03 0.00 - 0.03 K/uL 03/27/2021 7:38 AM [facility] Blood Venipuncture / Unknown 03/27/2021 6:14 AM BIG DATA DEVELOPER 03/27/2021 7:21 AM BIG DATA DEVELOPER Katelyn Jack MD HEMATOLOGY ORDERABLE S Performing Organization Address [facility]/State/[facility] Co de Phone Number [facility]# [id number] [address] [place] [address] * PATHOLOGY (03/26/2021 4:40 PM BIG DATA DEVELOPER) CASE REPORT Surgical Pathology Report ? Case: [id number] ? Authorizing Provider: ??Katelyn Jack MD ? Collected: ? 03/26/2021 04:40 PM ? Ordering Location: ? [facility] ?Received: ?03/29/2021 07:37 AM ? Operating Room ? Pathologist: ? Yue, Joseph Braxton, DO ? Specimen: ?Splenic flexure ? 03/31/2021 4:51 PM 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 -Lymphovascular space invasion present, including intramural and extramural large vessel (venous) invasion. -Perineural invasion present. -Margins free of tumor. 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 03/31/2021 4:51 PM [facility] S DESCRIPTION Received in a single container labeled Mary Earl, splenic flexure is a 16 cm long by 6 cm circumference segment of colon received closed, stapled in a loop. The attached adipose tissue is 16 x 5.5 x 1.5 cm. The serosal surface is pink-dorsey and glistening with an area of ernst-black discoloration consistent with tattoo ink. The bowel wall has a thickness of 0.2 cm. The mucosal surface is remarkable for a sessile, partially circumferential mass 1.5 cm in length. The mass is 5 cm from the closest stapled margin and 4 cm from the closest mesenteric margin. The mass obliterates the muscular wall of the bowel extending into the attached adipose tissue. The lesion has a maximum thickness of 0.8 cm. The remainder of the mucosal surface is dorsey and velvety with normal folds. No additional lesions are identified. The attached fat is dissected for lymph nodes. Vessel Engineer sections are submitted in cassettes as follows: A1 stapled margin closest to mass; A2 opposite stapled margin; A3 mesenteric margin closest to mass; A4 through A8 mass; A9 through A 14 multiple potential lymph nodes; A 15 and A 16 each 1 potential lymph node bisected. LUIS CARLOS 03/31/2021 4:51 PM [facility] MICROSCOPIC DESCRIPTION The slides are labeled [id number] and Mary Earl. Sections of the grossly noted mass show an invasive moderately differentiated adenocarcinoma characterized by an infiltrative proliferation of architecturally complex glands lined by malignant epithelial cells. The tumor extends through the muscularis propria and into the pericolonic soft tissue. There are foci of lymphovascular space invasion, including intramural and extramural large vessel venous invasion, highlighted by elastic stains (performed on blocks A4 and A5). Foci of perineural invasion are noted as well. The surface of the lesion is extensively ulcerated, and the tumor previously created defect in the mucosal surface. Within the pericolonic soft tissue there are a total of 33 lymph nodes, 1 of which is involved by metastatic carcinoma. The involved lymph node contains a nodular focus of tumor surrounded by fibrous stroma with only small collections of residual lymphoid stroma. An elastic stain (performed on block a 16) shows no elastic fibers associated with the tumor cell population, arguing against a focus of soft tissue venous invasion, and supporting the designation is a lymph node involved by metastatic carcinoma. One other potential lymph node consists of a nodular collection of tumor cells associated with stellate fibrotic stroma adjacent to small arteries and veins. An elastic stain (performed on block A11) highlights tumor cells splaying apart elastic fibers associated with the blood vessels. At this tumor focus is thought to represent an overgrowth of vascular invasion within the pericolonic soft tissue rather than a true lymph node. No additional soft tissue tumor deposits are identified. The proximal and distal mucosal margins are free of dysplasia and carcinoma. The mesenteric soft tissue margin is free of carcinoma. Please see the synoptic report for additional information. 03/31/2021 4:51 PM [facility] OPERATIVE PROCEDURE 1: SPLENIC FLEXURE MOBILIATION LAPAROSCOPIC 2: SIGMOID COLECTOMY HAND ASSISTED LAPAROSCOPIC 3: IV INJECTION OF AGENT FOR VASCULAR FLOW IN FLAP OR GRAFT 03/31/2021 4:51 PM [facility] CLINICAL INFORMATION 03/31/2021 4:51 PM [facility] SYNOPTIC REPORT COLON AND RECTUM: Resection, Including Transanal Disk Excision of Rectal Neoplasms COLON AND RECTUM: RESECTION - All Specimens 8th Edition - Protocol posted: 07/03/2019 SPECIMEN ?? Procedure: ?Splenic flexure resection TUMOR ?? Tumor Site: ?Splenic flexure ?? Histologic Type: ?Adenocarcinoma ?? Histologic Grade: ?G2: Moderately differentiated ?? Tumor Size: ?Greatest dimension (Centimeters): 1.5 cm ?? Tumor Extension: ?Tumor invades through the muscularis propria into pericolorectal tissue ?? Macroscopic Tumor Perforation: ?Not identified ?? Lymphovascular Invasion: ?Present ? Lymphovascular Invasion Type: ?Large vessel (venous) invasion ? : ?Intramural ? : ?Extramural ?? Perineural Invasion: ?Present ?? Treatment Effect: ?No known presurgical therapy MARGINS ?? Margins: ?All margins are uninvolved by invasive carcinoma, high grade dysplasia / intramucosal carcinoma, and low grade dysplasia ? Margins Examined: ?Proximal ? Margins Examined: ?Distal ? Margins Examined: ?Radial (circumferential) or Mesenteric LYMPH NODES ?? Number of Lymph Nodes Involved: ?1 ?? Number of Lymph Nodes Examined: ?33 ?? Tumor Deposits: ?Not identified PATHOLOGIC STAGE CLASSIFICATION (pTNM, AJCC 8th Edition) ? Primary Tumor (pT): ?pT3 ?? Regional Lymph Nodes (pN): ?pN1a 03/31/2021 4:51 PM BIG DATA DEVELOPER [facility] COMMENT Special stain and/or immunohistochemical results are interpreted with controls that demonstrate appropriate staining reactions. Note on use of immunocytochemistry reagents: This test was developed and its performance characteristics determined by [facility], Department of Laboratory Medicine. It has not been cleared or approved by the U.S. Food and Drug Administration. The FDA has determined that such clearance or approval is not necessary. The test is used for clinical purposes. It should not be regarded as investigational or for research. This laboratory is certified to perform high complexity testing. Frozen section/operating room consultation, gross examination and dissection, and case sign out may have been performed in part or completely in the following laboratories: [facility], [place] #[id number] [address] [place] [address] [facility], [place] #[id number] [address] [place] [address] [facility] Herb/[place]ang, [place] #[id number] [address] [place] [address] This report was created with the [employer] voice-activated dictation system. Inherent to this system is the possibility of syntax, grammar, punctuation and other errors that could impact the interpretation of the report. If there are interpretative questions about aspects of this report, please contact the performing pathologist. 03/31/2021 4:51 PM BIG DATA DEVELOPER [facility] Tissue (Splenic flexure) Collection / Unknown 03/26/2021 4:40 PM BIG DATA DEVELOPER 03/29/2021 7:37 AM BIG DATA DEVELOPER Katelyn Jack MD PATHOLOGY/CYTOLOGY O RDPEDRO Performing Organization Address [facility]/ZIP Co de Phone Number [facility]# [id number] [address] [place] [address] * IR INJECTION (03/26/2021 1:55 PM BIG DATA DEVELOPER) Narrative 03/26/2021 1:55 PM BIG DATA DEVELOPER Order information only. ??Exam was auto-finalized. ?? Dangelo Rhoades MD IR ORDERABLES * VERIFICATION BLOOD GROUP (03/26/2021 11:11 AM BIG DATA DEVELOPER) ABO GROUP A 03/26/2021 11:54 AM BIG DATA DEVELOPER [facility] -- [facility] RH (D) TYPE Positive 03/26/2021 11:54 AM BIG DATA DEVELOPER [facility] -- [facility] Blood Venipuncture / Unknown 03/26/2021 11:11 AM BIG DATA DEVELOPER 03/26/2021 11:12 AM BIG DATA DEVELOPER Rosa Espinosa MD BLOOD BANK ORD ERABLES Performing Organization Address [facility]/ZIP Co de Phone Number [facility]# [id number] [address] [place] [address] * PREPARE RED BLOOD CELLS (03/26/2021 10:26 AM BIG DATA DEVELOPER) COMPONENT TYPE [id number] [facility] COMPONENT IDENTIFICATION [id number] [facility] UN[facility] ABO A [facility] RH POS [facility] CROSSMATCH Compatible [facility] COMPONENT STATUS Returned [facility] COMPONENT EXPIRATION DATE/TIME [facility] COMPONENT CODING SYSTEM [address] [facility] 03/26/2021 10:2 6 AM BIG DATA DEVELOPER Katelyn Jack MD LAB TRANSFUSION TANISHA [facility] CLIA# [id number] [address] [place] [id number] * PREPARE RED BLOOD CELLS (03/26/2021 10:26 AM BIG DATA DEVELOPER) Pathologist [facility] COMPONENT TYPE [id number] [facility] COMPONENT IDENTIFICATION [id number] [facility] UN[facility] ABO A [facility] RH POS [facility] -- [facility] CROSSMATCH Compatible [facility] COMPONENT STATUS Returned [facility] COMPONENT EXPIRATION DATE/TIME [facility] COMPONENT CODING SYSTEM [address] [facility] Other, specify 03/26/2021 10 :26 AM BIG DATA DEVELOPER Katelyn Jack MD LAB TRANSFUSION TANISHA [facility]# [id number] [address] [place] [address] * POC , URINE (03/26/2021 10:11 AM BIG DATA DEVELOPER) Pathologist [facility] HCG QUAL URINE Negative Negative 03/26/2021 10:11 AM BIG DATA DEVELOPER [facility] DRY PRESS OPERATOR HELPER NAME STEPHANIE JAIMES 03/26/2021 10:11 AM BIG DATA DEVELOPER [facility] Urine 03/26/2021 10:1 1 AM BIG DATA DEVELOPER 03/29/2021 10:16 AM BIG DATA DEVELOPER Katelyn Jack MD POINT OF CARE TESTIN G [facility]# [id number] [address] [place] [address] * 2019 NOVEL CORONAVIRUS (COVID-19) PCR DETECTION (03/22/2021 11:22 AM BIG DATA DEVELOPER) COVID-19 PCR NOT DETECTED Not Detected 03/22/20 6:58 PM BIG DATA DEVELOPER [facility] PERFORMING LAB [facility] 03/22/2021 6:58 PM [facility] Upper Respiratory ANTERIOR NARES SWAB / Unknown Collection / Unknown 03/22/2021 11:22 AM BIG DATA DEVELOPER 03/22/2021 2:00 PM BIG DATA DEVELOPER Narrative [facility] - 03/22/2021 6:58 PM BIG DATA DEVELOPER This test has been authorized by the [...] Jack MD MICROBIOLOGY - GENER AL ORDERABLES Performing Organization Address City/[facility]/ZIP Co de Phone Number [facility]# [id number] [address] [place] [address] documented in this encounter Visit Diagnoses Not on filedocumented in this encounter Administered Medications Inactive Administered Medications - up to 3 most recent administrations Medication Order MAR Action Action Date Dose Rate Site acetaminophen (TYLENOL) tablet 650 mg 650 mg, Oral, EVERY 6 HOURS, First dose on Mon03/27/21 at 0000, Until Discontinued, Routine, Post-op - Floor Given 03/28/2021 4:56 PM BIG DATA DEVELOPER 650 mg Given 03/28/2021 12:37 PM BIG DATA DEVELOPER 650 mg Given 03/28/2021 5:30 AM BIG DATA DEVELOPER 650 mg alvimopan (ENTEREG) capsule 12 mg 12 mg, Oral, TWO TIMES DAILY, 14 doses, First dose on Mon03/27/21 at 0900, Last dose on Mon04/02/21 at 2100, Routine, Post-op - Floor, The ordering provider acknowledges review of the [facility] education on the benefits and risks of alvimopan? (see reference links above): Yes Given 03/27/2021 8: 44 PM BIG DATA DEVELOPER 12 mg Given 03/27/2021 8:35 AM BIG DATA DEVELOPER 12 mg bupivacaine HCl (MARCAINE, SENSORCAINE) 2.5 mg/mL (0.25%) injection INTRA-PROCEDURE PRN, Starting on Mon03/26/21 at 1350, Until Mon03/26/21 at 1752, Routine, Intra-op Given 03/26/2021 5:29 PM BIG DATA DEVELOPER 18 mL Opera tive Site Given 03/26/2021 1:50 PM BIG DATA DEVELOPER 22 mL Op erative Site celecoxib (CeleBREX) capsule 200 mg 200 mg, Oral, DAILY WITH BREAKFAST, First dose on Mon03/27/21 at 0700, Until Discontinued, Routine, Post-op - Floor Given 03/28/2021 8:32 AM BIG DATA DEVELOPER 200 m g Given 03/27/2021 8:35 AM BIG DATA DEVELOPER 200 mg enoxaparin (LOVENOX) injection 40 mg 40 mg, subCUT, EVERY 24 HOURS, First dose on Mon03/27/21 at 1200, Until Discontinued, Routine, Post-op - Floor, Indication: Prophylaxis of VTE, Dose to be adjusted per facility protocol? Yes Given 03/28/2021 12:41 PM BIG DATA DEVELOPER 40 mg Abdominal Tissue Given 03/27/2021 12:41 PM BIG DATA DEVELOPER 40 mg A bdominal Tissue famotidine (PEPCID) tablet 20 mg 20 mg, Oral, TWO TIMES DAILY, First dose on Mon03/26/21 at 2115, Until Discontinued, Routine, Post-op - Floor Given 03/28/2021 8:32 AM BIG DATA DEVELOPER 20 mg Given 03/27/2021 8:44 PM BIG DATA DEVELOPER 20 mg Given 03/27/2021 8:35 AM BIG DATA DEVELOPER 20 mg gabapentin (NEURONTIN) capsule 100 mg 100 mg, Oral, EVERY 8 HOURS, First dose on Mon03/26/21 at 2300, Until Discontinued, Routine, Post-op - Floor Given 03/28/2021 12:37 PM BIG DATA DEVELOPER 100 mg Given 03/28/2021 5:30 AM BIG DATA DEVELOPER 100 mg Given 03/27/2021 8:44 PM BIG DATA DEVELOPER 100 mg morphine 4 mg/mL injection 2 mg 2 mg, IV, EVERY 4 HOURS PRN, Starting on Mon03/26/21 at 2109, Until 03/28/21 at 1944, Pain (See admin instructions), Routine, Post-op - Floor Given 03/27/2021 12:52 PM BIG DATA DEVELOPER 2 mg ondansetron (ZOFRAN) 4 mg/2 mL injection 4 mg 4 mg, IV, EVERY 6 HOURS PRN, Starting on Mon03/26/21 at 2109, Until 03/28/21 at 1944, Nausea/Emesis, Routine, Post-op - Floor Given 03/28/2021 1:57 PM BIG DATA DEVELOPER 4 mg Given 03/27/2021 3:24 AM BIG DATA DEVELOPER 4 mg oxyCODONE (ROXICODONE) tablet 7.5 mg 7.5 mg, Oral, EVERY 4 HOURS PRN, Starting on Mon03/26/21 at 2109, Until Mon03/28/21 at 1944, Pain (See admin instructions), Routine, Post-op - Floor Given 03/28/2021 4:56 PM BIG DATA DEVELOPER 7.5 mg Given 03/28/2021 12:47 PM BIG DATA DEVELOPER 7.5 mg Given 03/28/2021 8:38 AM BIG DATA DEVELOPER 7.5 mg potassium CHLORIDE in dextrose 5% - NaCl 0.45% 1,000 mL 20 mEq/L infusion IV, at 100 mL/hr, CONTINUOUS, Starting on Mon03/26/21 at 2115, Until Mon03/28/21 at 1944, Routine, Post-op - Floor New Bag 03/26/2021 10:26 PM BIG DATA DEVELOPER 100 mL/hr sodium chloride 0.9 % irrigation solution INTRA-PROCEDURE PRN, Starting on Mon03/26/21 at 1342, Until Mon03/26/21 at 1752, Routine, Intra-op Given 03/26/2021 1:52 PM BIG DATA DEVELOPER 1,000 mL Operative Site Given 03/26/2021 1:42 PM BIG DATA DEVELOPER 650 mL Op erative Site water sterile irrigation irrigation INTRA-PROCEDURE PRN, Starting on Mon03/26/21 at 1342, Until Mon03/26/21 at 1752, Routine, Intra-op Given 03/26/2021 1:42 PM BIG DATA DEVELOPER 650 mL Opera tive Site documented in this encounter Active and Recently Administered Medications Times are shown in BIG DATA DEVELOPER. Scheduled Medication Order 03/26/2021 03/27/2021 03/28/2021 acetaminophen (TYLENOL) tablet 1,000 mg (COMPLETED) 1,000 mg, Oral, PRE-PROCEDURE ONCE, 1 dose, Starting on Mon03/26/21 at 1026, Until Mon03/26/21 at 1110, Routine, Pre-op 1110 (Given - Provider: Stephanie Gibbs, MAXX) acetaminophen (TYLENOL) tablet 650 mg 650 mg, Oral, EVERY 6 HOURS, First dose on Mon03/27/21 at 0000, Until Discontinued, Routine, Post-op - Floor 0004 (Given - Provider: Lindsay Banegas RN)0518 (Given - Provider: Lindsay Banegas, MAXX)1241 (Given - Provider: Alia Milian RN)1826 (Given - Provider: Alia Milian RN) 0100 (Given - Provider: Lindsay Banegas, MAXX)0530 (Given - Provider: Lindsay Banegas, MAXX)1237 (Given - Provider: Alia Milian RN)1656 (Given - Provider: Alia Milian RN)1800 (Canceled Entry - Provider: Alia Milian RN) alvimopan (ENTEREG) capsule 12 mg (COMPLETED) 12 mg, Oral, PRE-PROCEDURE ONCE, 1 dose, Starting on Mon03/26/21 at 1026, Until Mon03/26/21 at 1110, Routine, Pre-op 1110 (Given - Provider: Stephanie Gibbs, MAXX) alvimopan (ENTEREG) capsule 12 mg 12 mg, Oral, TWO TIMES DAILY, 14 doses, First dose on Mon03/27/21 at 0900, Last dose on Mon04/02/21 at 2100, Routine, Post-op - Floor, The ordering provider acknowledges review of the [facility] education on the benefits and risks of alvimopan? (see reference links above): Yes 0835 (Given - Provider: Alia Milian RN)2044 (Given - Provider: Lindsay Banegas, MAXX) 0900 (Not Given - Provider: Alia Milian RN - Reason: Patient condition - Comment: mx BMs) cefOXitin (MEFOXIN) 2,000 mg in sodium chloride 0.9% 50 mL IVPB (MBP) (COMPLETED) 2,000 mg, IV, PRE-PROCEDURE ONCE, 1 dose, Starting on Mon03/26/21 at 1026, Until Mon03/26/21 at 1532, Routine, Pre-op, Antibiotic Indication: Surgical prophylaxis 1300 (New Bag - Provider: IZZY Cochran)1502 (Bolus - Provider: IZZY Cochran)1532 (Stopped - Provider: IZZY Cochran) celecoxib (CeleBREX) capsule 200 mg (COMPLETED) 200 mg, Oral, PRE-PROCEDURE ONCE, 1 dose, Starting on Mon03/26/21 at 1026, Until Mon03/26/21 at 1110, Routine, Pre-op 1110 (Given - Provider: Stephanie Gibbs RN) celecoxib (CeleBREX) capsule 200 mg 200 mg, Oral, DAILY WITH BREAKFAST, First dose on 03/27/21 at 0700, Until Discontinued, Routine, Post-op - Floor 0835 (Given - Provider: Alia Milian RN) 0832 (Given - Provider: Alia Milian RN) enoxaparin (LOVENOX) injection 40 mg 40 mg, subCUT, EVERY 24 HOURS, First dose on 03/27/21 at 1200, Until Discontinued, Routine, Post-op - Floor, Indication: Prophylaxis of VTE, Dose to be adjusted per facility protocol? Yes 1241 (Given - Provider: Alia Milian RN) 1241 (Given - Provider: Alia Milian RN) famotidine (PEPCID) tablet 20 mg 20 mg, Oral, TWO TIMES DAILY, First dose on Mon03/26/21 at 2115, Until Discontinued, Routine, Post-op - Floor 0005 (Given - Provider: Lindsay Banegas RN)0835 (Given - Provider: Alia Milian, MAXX)204 (Given - Provider: Lindsay Banegas RN) 0832 (Given - Provider: Alia Milian RN) gabapentin (NEURONTIN) capsule 100 mg 100 mg, Oral, EVERY 8 HOURS, First dose on Mon03/26/21 at 2300, Until Discontinued, Routine, Post-op - Floor 0005 (Given - Provider: Lindsay Banegas RN)0517 (Given - Provider: Lindsay Banegas RN)1241 (Given - Provider: Alia Milian RN)204 (Given - Provider: Lindsay Banegas RN) 0530 (Given - Provider: Lindsay Banegas RN)1237 (Given - Provider: Alia Milian RN) heparin injection 5,000 Units (COMPLETED) 5,000 Units, subCUT, PRE-PROCEDURE ONCE, 1 dose, Starting on Mon03/26/21 at 1026, Until Mon03/26/21 at 1116, Routine, Pre-op 1116 (Given - Provider: Stephanie Gibbs RN) ketamine bolus from infusion injection (COMPLETED)(Linked Group 1) 22.8 mg (rounded from 22.77 mg = 0.3 mg/kg ? 75.9 kg Adjusted weight), IV, INTRA-PROCEDURE ONCE, 1 dose, Starting on Mon03/26/21 at 0923, Until Mon03/26/21 at 1238, Routine, Intra-Procedure 1238 (Given - Provider: IZZY Cochran) naloxone (NARCAN) 0.4 mg/mL injection 0.1 mg 0.1 mg, IV, SEE ADMIN INSTRUCTIONS, Starting on Mon03/26/21 at 2109, Until Mon03/28/21 at 1944, Routine, Post-op - Floor ondansetron (ZOFRAN ODT) tablet 8 mg (COMPLETED) 8 mg, Oral, PRE-PROCEDURE ONCE, 1 dose, Starting on Mon03/26/21 at 1025, Until Mon03/26/21 at 1110, Routine, Pre-op 1110 (Given - Provider: Stephanie Gibbs RN) Continuous Medication Order 03/26/2021 03/27/2021 03/28/2021 ketamine (KETALAR) 100 mg/10 mL infusion syringe (CANCELED)(Linked Group 1) 0.2 mg/kg/hr ? 75.9 kg Adjusted weight (1.518 mL/hr, rounded to 1.52 mL/hr), IV, CONTINUOUS, Starting on Mon03/26/21 at 0930, Until Mon03/26/21 at 2110, Intra-Procedure 1250 (New Bag - Provider: IZZY Cochran)1637 (Stopped - Provider: IZZY Thompson) lactated ringers infusion (CANCELED) IV, at 30 mL/hr, PRE-PROCEDURE CONTINUOUS, Starting on Mon03/26/21 at 1030, Until Mon03/26/21 at 2109, Routine, Pre-op 1109 (New Bag - Provider: Stephanie Gibbs RN)1227 (Paused - Provider: IZZY Cochran - Comment: Switch to gravity)1228 (Restarted - Provider: IZZY Cochran)1435 (Canceled Entry - Provider: IZZY Cochran - Comment: Switch to gravity)1436 (Fluid Volume - Provider: IZZY Cochran)1437 (New Bag - Provider: IZZY Cochran)1757 (Fluid Volume - Provider: IZZY Thompson) potassium CHLORIDE in dextrose 5% - NaCl 0.45% 1,000 mL 20 mEq/L infusion IV, at 100 mL/hr, CONTINUOUS, Starting on Mon03/26/21 at 2115, Until Mon03/28/21 at 1944, Routine, Post-op - Floor 2114 (Canceled Entry - Provider: Lindsay Banegas, MAXX)2226 (New Bag - Provider: Lindsay Banegas, MAXX) PRN Medication Order 03/26/2021 03/27/2021 03/28/2021 bupivacaine HCl (MARCAINE, SENSORCAINE) 2.5 mg/mL (0.25%) injection (CANCELED) INTRA-PROCEDURE PRN, Starting on Mon03/26/21 at 1350, Until Mon03/26/21 at 1752, Routine, Intra-op 1350 (Given - Provider: Katelyn Jack MD)1729 (Given - Provider: Katelyn Jack MD) fentaNYL PF (SUBLIMAZE) 50 mcg/mL injection 25 mcg (CANCELED) 25 mcg, IV, POST-PROCEDURE Q 3 MINUTES PRN, 5 doses, Starting on Mon03/26/21 at 0958, Until Mon03/26/21 at 2109, Pain, Routine, PACU 1941 (Given - Provider: Terry Cueva RN) metoclopramide (REGLAN) 5 mg/mL injection 10 mg 10 mg, IV, EVERY 6 HOURS PRN, Starting on Mon03/26/21 at 2109, Until Mon03/28/21 at 1944, Nausea/Emesis, Routine, Post-op - Floor morphine 4 mg/mL injection 2 mg 2 mg, IV, EVERY 4 HOURS PRN, Starting on Mon03/26/21 at 2109, Until Mon03/28/21 at 1944, Pain (See admin instructions), Routine, Post-op - Floor 1252 (Given - Provider: Alia Milian RN) morphine 4 mg/mL injection 2 mg 2 mg, IV, EVERY 4 HOURS PRN, Starting on Mon03/26/21 at 2109, Until Mon03/28/21 at 1944, Pain (See admin instructions), Routine, Post-op - Floor morphine 4 mg/mL injection 4 mg 4 mg, IV, EVERY 2 HOURS PRN, Starting on Mon03/26/21 at 2109, Until Mon03/28/21 at 1944, Pain (See admin instructions), Routine, Post-op - Floor ondansetron (ZOFRAN) 4 mg/2 mL injection 4 mg 4 mg, IV, EVERY 6 HOURS PRN, Starting on Mon03/26/21 at 2109, Until Mon03/28/21 at 1944, Nausea/Emesis, Routine, Post-op - Floor 0324 (Given - Provider: Lindsay Banegas RN) 1357 (Given - Provider: Alia Milian RN) oxyCODONE (ROXICODONE) tablet 10 mg 10 mg, Oral, EVERY 4 HOURS PRN, Starting on Mon03/26/21 at 2109, Until Mon03/28/21 at 1944, Pain (See admin instructions), Routine, Post-op - Floor oxyCODONE (ROXICODONE) tablet 7.5 mg 7.5 mg, Oral, EVERY 4 HOURS PRN, Starting on Mon03/26/21 at 2109, Until 03/28/21 at 1944, Pain (See admin instructions), Routine, Post-op - Floor 1825 (Given - Provider: Alia Milian RN) 0100 (Given - Provider: Lindsay Banegas RN)0838 (Given - Provider: Alia Milian RN)1247 (Given - Provider: Alia Milian RN)1656 (Given - Provider: Alia Milian RN) prochlorperazine maleate (COMPAZINE) tablet 10 mg 10 mg, Oral, EVERY 6 HOURS PRN, Starting on Mon03/26/21 at 2109, Until Mon03/28/21 at 1944, Nausea/Emesis, Routine, Post-op - Floor scopolamine (TRANSDERM-SCOP) 1 mg/72 hr transdermal patch 1 Patch 1 Patch, Transdermal, PRE-PROCEDURE ONCE PRN, 1 dose, Starting on Mon03/26/21 at 1025, Until Mon03/28/21 at 1944, apply to mastoid area, Routine, Pre-op 1115 (Applied - Provider: Stephanie Gibbs RN) 1744 (Due: Removed - Provider: PROVIDER, DISCHARGE PATIENT - Comment: Time automatically adjusted from order being discontinued) sodium chloride 0.9 % irrigation solution (CANCELED) INTRA-PROCEDURE PRN, Starting on Mon03/26/21 at 1342, Until Mon03/26/21 at 1752, Routine, Intra-op 1342 (Given - Provider: Katelyn Jack MD - Comment: PRN BACK TABLE IRRIGATION)1352 (Given - Provider: Katelyn Jack MD - Comment: PRN WARMED DAVOL IRRIGATION) water sterile irrigation irrigation (CANCELED) INTRA-PROCEDURE PRN, Starting on Mon03/26/21 at 1342, Until Mon03/26/21 at 1752, Routine, Intra-op 1342 (Given - Provider: Katelyn Jack MD - Comment: PRN BACK TABLE WATER IRRIGATION) Linked Groups Order Group 1: ketamine bolus from infusion injection (COMPLETED)Jump to med 22.8 mg (rounded from 22.77 mg = 0.3 mg/kg ? 75.9 kg Adjusted weight), IV, INTRA-PROCEDURE ONCE, 1 dose, Starting on Mon03/26/21 at 0923, Until Mon03/26/21 at 1238, Routine, Intra-Procedure And ketamine (KETALAR) 100 mg/10 mL infusion syringe (CANCELED)Jump to med 0.2 mg/kg/hr ? 75.9 kg Adjusted weight (1.518 mL/hr, rounded to 1.52 mL/hr), IV, CONTINUOUS, Starting on Mon03/26/21 at 0930, Until Mon03/26/21 at 2110, Intra-Procedure documented in this encounter Care Teams Medical Billing Manager Relationship Specialty Start Date End Date Cornelio Rayo DO [address] [facility] [address] [facility] [address] [place] [address] PCP - General Internal Medicine 03/08/21 09/11/22 documented as of this encounter
--- OUTSIDE RECORDS SUMMARY | 2024-05-06 09:06 | XMS_ITS | Encounter Summary ---
Author Organization [facility] Address [address] [place] [address] Care Team Providers Care Sales Manager [place] Name Role Phone Cornelio Rayo DO Primary Care Provider [phone] Encounter Details Date Type Department Care Team (Late Contact Info) Description 03/24/2021 Orders Only [facility] Surgical Spec [place] [id number] [facility] [address] [place] [address] Laurie Hodges, RN Social History Tobacco Use Types Packs/Day [...] have Coronavirus / COVID-19? No / Unsure 03/22/2021 9:58 AM 3RD GRADE READING TEACHER documented as of this encounter Plan of Treatment Upcoming Encounters Date Type Department Care Team (Late Contact Info) Description 06/13/2024 10:15 AM 3RD GRADE READING TEACHER Office Visit [facility] Oncology and Hematology - [place] [address] [place] [address] Yosef Salmeron MD [address] [facility] [address] [place] [address] documented as of this encounter Visit Diagnoses Not on filedocumented in this encounter Care Teams Sales Manager [place] Relationship Specialty Start Date End Date Cornelio Rayo DO [address] [facility] [address] [facility] [address] [place] [address] PCP - General Internal Medicine 03/08/21 09/11/22 documented as of this encounter
--- OUTSIDE RECORDS SUMMARY | 2024-05-06 09:06 | XMS_ITS | Encounter Summary ---
Author Organization [facility] Address [address] [facility] Attn: Epic Prelude ADT OLLIE HERRMANN [address] Care Team Providers Care Gas Singer Name Role Phone Cornelio Rayo DO Primary Care Provider [phone] Encounter Details Date Type Department Care Team (Latest Contact Info) Description 03/22/2021 Travel Social History Tobacco Use Types Packs/Day [...] COVID-19? No / Unsure 03/22/2021 9:58 AM FRONT END DEVELOPER JAVASCRIPT HTML CSS documented as of this encounter Plan of Treatment Upcoming Encounters Date Type Department Care Team (Late st Contact Info) Description 06/13/2024 10:15 AM FRONT END DEVELOPER JAVASCRIPT HTML CSS Office Visit [facility] Oncology and Hematology - [place] [address] [place] [address] Yosef Salmeron MD [address] [facility] [address] [place] [address] documented as of this encounter Visit Diagnoses Not on filedocumented in this encounter Care Teams Gas Singer Relationship Specialty Start Date End Date Cornelio Rayo DO [address] [facility] [address] [facility] [address] [place] [address] PCP - General Internal Medicine 03/08/21 09/11/22 documented as of this encounter
--- OUTSIDE RECORDS SUMMARY | 2024-05-06 09:06 | XMS_ITS | Encounter Summary ---
Author Organization [facility] Address [address] [facility] Attn: Epic Prelude ADT OLLIE HERRMANN [address] Care Team Providers Care Rooming House Keeper Name Role Phone Cornelio Rayo DO Primary Care Provider Encounter Details Date Type Department Care Team (Latest Contact Info) Description 03/15/2021 Travel Social History Tobacco Use Types Packs/Day Years Used Date Smoking Tobacco: Never Smokeless Tobacco: Never Alcohol Use Standard Drinks/Week [...] have Coronavirus / COVID-19? 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 documented as of this encounter Plan of Treatment Upcoming Encounters Date Type Department Care Team (Late st Contact Info) Description 06/13/2024 10:15 AM SHEETMETAL PATTERNMAKER Office Visit [facility] Oncology and Hematology - [place] [address] [place] [address] Yosef Salmeron MD [address] [facility] [address] [place] [address] documented as of this encounter Visit Diagnoses Not on filedocumented in this encounter Care Teams Rooming House Keeper Relationship Specialty Start Date End Date Cornelio Rayo DO [address] [place] [address] PCP - General Internal Medicine 03/08/21 09/11/22 documented as of this encounter
--- OUTSIDE RECORDS SUMMARY | 2024-05-06 09:06 | XMS_ITS | Encounter Summary ---
Author Organization [facility] Address [address] [place] [address] Care Team Providers Care Cattle Tester Name Role Phone Cornelio Rayo DO Primary Care Provider [phone] Encounter Details Date Type Department Care Team (Late Contact Info) Description 03/12/2021 Prep for Surgery [facility] Surgical Spec [place] [id number] [place] [address] Laurie Hodges, padder colitis (Primary Dx) Social History Tobacco Use Types [...] have Coronavirus / COVID-19? No / Unsure 03/08/2021 12:35 PM CDT documented as of this encounter Plan of Treatment Upcoming Encounters Date Type Department Care Team (Late Contact Info) Description 06/13/2024 10:15 AM SUPERVISOR CUTTING AND BONING Office Visit [facility] Oncology and Hematology - [place] [address] [place] [address] Yosef Salmeron MD [address] [facility] [address] [place] [address] documented as of this encounter Visit Diagnoses Diagnosis Acute colitis- Primary Other and unspecified noninfectious gastroenteritis and colitis documented in this encounter Care Teams Cattle Tester Relationship Specialty Start Date End Date Cornelio Rayo DO [address] [facility] [address] [facility] [address] [place] [address] PCP - General Internal Medicine 03/08/21 09/11/22 documented as of this encounter
--- OUTSIDE RECORDS SUMMARY | 2024-05-06 09:06 | XMS_ITS | Encounter Summary ---
Author Organization [facility] Address [address] [place] [address] Care Team Providers Care Manager Property Name Role Phone Cornelio Rayo Primary Care Provider [phone] Encounter Details Date Type Department Care Team (Latest Contact Info) Description 03/22/2021 11:22 AM SUPPRESSION CREW LEADER - 03/22/2021 11:59 PM SUPPRESSION CREW LEADER Hospital Encounter [facility] Pre Procedure Viral Testing [address] [address] Discharge Disposition: Home or Self Care Social [...] COVID-19? No / Unsure 03/22/2021 9:58 AM SUPPRESSION CREW LEADER documented as of this encounter Medications at Time of Discharge Medication Sig Dispensed Refills Start Date End Date ondansetron (ZOFRAN ODT) 4 mg Tablet, Rapid Dissolve Take 1 Tablet by mouth every 6 hours as needed for Nausea/Emesis. Dissolve tablet on top of tongue, then swallow with saliva. 24 Tablet 03/28/2021 04/22/2021 neomycin (MYCIFRADIN) 500 mg tablet Take 2 Tablets (1,000 mg) by mouth see administration instructions. 2 tabs PO at 1PM 2pm and 10pm day before surgery 6 Tablet 03/15/2021 03/28/2021 metroNIDAZOLE (FLAGYL) 500 mg tabletIndications:ta ke 1 tab po at 6 8 and 10 PM evening of prep Take 1 Tablet (500 mg) by mouth see administration instructions. 1 tab PO at 1pm 2pm and 10pm day before surgery 3 Tablet 03/15/2021 03/28/2021 neomycin (MYCIFRADIN) 500 mg tablet Take 2 Tablets (1,000 mg) by mouth see administration instructions. 2 tabs PO at 1PM 2pm and 10pm day before surgery 6 Tablet 03/12/2021 03/28/2021 metroNIDAZOLE (FLAGYL) 500 mg tabletIndications:ta ke 1 tab po at 6 8 and 10 PM evening of prep Take 1 Tablet (500 mg) by mouth see administration instructions. 1 tab PO at 1pm 2pm and 10pm day before surgery 3 Tablet 03/12/2021 03/28/2021 polyethylene glycol (MIRALAX) 17 gram Powder in Packet Start with once serving in 8 ounces of water twice daily and titrate for 1-2 soft stools daily. You may need to increase dose or frequency or both. 03/11/2021 03/28/2021 documented as of this encounter Plan of Treatment Upcoming Encounters Date Type Department Care Team (Late st Contact Info) Description 06/13/2024 10:15 AM SUPPRESSION CREW LEADER Office Visit [facility] Oncology and Hematology - [place] [address] [facility] [address] [place] [address] Yosef Salmeron MD [address] [facility] [address] [place] [address] documented as of this encounter Procedures Procedure Name Priority Date/Time Associated Diagnosis Comments 2019 NOVEL CORONAVIRUS (COVID-19) PCR DETECTION Routine 03/22/2021 11:22 AM SUPPRESSION CREW LEADER Pre-op testing documented in this encounter Results * 2019 NOVEL CORONAVIRUS (COVID-19) PCR DETECTION (03/22/2021 11:22 AM SUPPRESSION CREW LEADER) COVID-19 PCR NOT DETECTED Not Detected 03/22/20 6:58 PM SUPPRESSION CREW LEADER [facility] PERFORMING LAB [facility] 03/22/2021 6:58 PM SUPPRESSION CREW LEADER [facility] Upper Respiratory ANTERIOR NARES SWAB / Unknown Collection / Unknown 03/22/2021 11:22 AM SUPPRESSION CREW LEADER 03/22/2021 2:00 PM SUPPRESSION CREW LEADER Narrative [facility] - 03/22/2021 6:58 PM SUPPRESSION CREW LEADER This test has been authorized by the [...] 2019-Novel Coronavirus. Katelyn Jack MD MICROBIOLOGY - [facility] AL ORDERABLES [facility]# [id number] [address] [facility] [place] [address] documented in this encounter Visit Diagnoses Diagnosis Pre-op testing Preoperative examination, unspecified documented in this encounter Care Teams Manager Property Relationship Specialty Start Date End Date Cornelio Rayo DO [address] [facility] [address] [place] [address] PCP - General Internal Medicine 03/08/21 09/11/22 documented as of this encounter
--- OUTSIDE RECORDS SUMMARY | 2024-05-06 09:06 | XMS_ITS | Encounter Summary ---
Author Organization [facility] Address [address] [place] [address] Care Team Providers Care Various Exceptionalities Teacher Name Role Phone Cornelio Rayo DO Primary Care Provider [phone] Reason for Visit * Reason Onset Date Comments Surgery 03/15/2021 Encounter Details Date Type Department Care Team (Late Contact Info) Description 03/15/2021 Telephone [facility] Surgical Spec [place] [address] [facility] [address] [address] Katelyn Jack MD [address] [facility] [address] [place] [address] Surgery Social History Tobacco Use [...] COVID-19? No / Unsure 03/15/2021 8:32 AM EMBEDDED PROCESSOR documented as of this encounter Plan of Treatment Upcoming Encounters Date Type Department Care Team (Late Contact Info) Description 06/13/2024 10:15 AM EMBEDDED PROCESSOR Office Visit [facility] Oncology and Hematology - [place] [address] [place] [address] Yosef Salmeron MD [address] [facility] [address] [place] [address] documented as of this encounter Visit Diagnoses Not on filedocumented in this encounter Care Teams Various Exceptionalities Teacher Relationship Specialty Start Date End Date Cornelio Rayo DO [address] [facility] [address] [place] [address] PCP - General Internal Medicine 03/08/21 09/11/22 documented as of this encounter
--- OUTSIDE RECORDS SUMMARY | 2024-05-06 09:06 | XMS_ITS | Encounter Summary ---
Author Organization [facility] Address 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 Name Role Phone Cornelio Rayo DO Primary Care Provider [phone] Reason for Visit * Auth/Cert Specialty Diagnoses / Procedures Referred By Contac t Referred To Contact Procedures NV LAP,SURG,COLECTOMY, PARTIAL, W/ANAST Katelyn Jack MD [address] [address] Referral ID Status Reason Start Date Expiration Date Visits Re quested Visits Authorized [id number] 03/10/2021 1 1 Encounter Details Date Type Department Care Team (Latest Contact Info) Description 03/26/2021 9:10 AM FOREIGN EXCHANGE TRADER - 03/28/2021 5:44 PM FOREIGN EXCHANGE TRADER Hospital Encounter [facility] Trauma and Surgery [address] [place] [id number] Katelyn Jack MD [address] [address] Malignant neoplasm of transverse colon Discharge Disposition: [...] COVID-19? No / Unsure 03/26/2021 10:52 AM FOREIGN EXCHANGE TRADER documented as of this encounter Last Filed Vital Signs Vital Sign Reading Time Taken Comments Blood Pressure 122/74 03/28/2021 12:10 PM FOREIGN EXCHANGE TRADER Pulse 60 03/28/2021 12:10 PM FOREIGN EXCHANGE TRADER Temperature 36.7 ??C (98.1 ??F) 03/28/2021 12:[address] Respiratory Rate 16 03/28/2021 12:10 PM FOREIGN EXCHANGE TRADER Oxygen Saturation 98% 03/28/2021 12:10 PM FOREIGN EXCHANGE TRADER Inhaled Oxygen Concentration - - Weight 96 kg (211 lb 11.2 oz) 03/26/2021 9:51 AM FOREIGN EXCHANGE TRADER Height 170.2 cm (5' 7 ) 03/26/2021 9:51 AM FOREIGN EXCHANGE TRADER Body Mass Index 33.16 03/26/2021 9:51 AM FOREIGN EXCHANGE TRADER documented in this encounter Discharge Summaries * Althea Davies MD - 03/28/2021 12:19 PM CST Surgical Discharge Summary Patient Name Mary Earl Age 51 y.o. Gender female Date of 1970 [facility] [id number] Attending Physician Katelyn Jack MD Discharging Physician MD STEPH Song Eddie L, DO Admit Date 03/26/2021 Discharge Date 03/28/2021 Length of Stay LOS: 2 days Follow-up & Outstanding Issues/Tests: Follow-up with Dr Jack in 2 week(s). Hospital Course: Mary Earl is a 51 y.o. female who was admitted to [facility] on 03/26/2021 after undergoing a robotic assisted [...] Your Medications These medications were sent to [place] [address] Hours: Retail 8 AM - 12 AM [...] than 30 minutes of time to prepare IGN EXCHANGE TRADER documented in this encounter Discharge Instructions * Discharge Instructions* Katelyn Jack MD - 03/26/2021 6:24 PM FOREIGN EXCHANGE TRADER Instructions: Low fiber diet until your follow [...] 4000 mg of tylenol in a day. Percocet/[place] has tylenol in it; so if you need to take the Percocet/[place] make sure you don't take too much Tylenol. If you have had a portion of your bowel resected a small amount of bleeding with your bowel movements initially is normal. Follow up with Dr. Jack in 2 weeks and call the office at [phone] to make that appointment. Call the office at [phone] for bleeding, increased pain, fevers over 101.0 degrees, redness atyour incisions, or any other problems. Alternatively, you can sign up for [email or web address] to make appointments, send Dr. Jack questions, or request medication refills. These online requests are only seen M-F during business hours. IGN EXCHANGE TRADER * Attachments The following attachments cannot be sent through Care Everywhere. * Low-Fiber Diet ([place]) documented in this encounter Medications at Time [...] daily and SCDs Althea Davies MD 03/27/2021 IGN EXCHANGE TRADER documented in this encounter H&P Notes * [...] episode. She had another episode which started Mar 06 associated with LUQ and LAUREN pain. She [...] to confirm. This was followed by a GRINDER SET UP OPERATOR THREAD TOOL to r/o ischemia: No evidence to suggest [...] complications. She understands and agrees to proceed. IGN EXCHANGE TRADER documented in this encounter OR Notes * Anesthesiology - Dangelo Rhoades MD - 03/27/2021 9:27 AM CST 03/27/2021 9:27 AM Regional Anesthesia Service Name: Mary Earl Age: 51 y.o. Sex: female CSN: [id number] Chief complaint: Post operative pain POD # [...] the nerve block. Dangelo Rhoades MD Pager: [phone] IGN EXCHANGE TRADER * Operative Report - Katelyn Jack MD [...] supine on the operating table on the [place] and general endotracheal anesthesia was induced. [...] site of the proposed resection. Using the orthotics assistant port, my orthotics assistant graspedthe colon distal to the mass at [...] the edges of bowel and created a rqnd-en-rdyf functional end-to-end anastomosis from the distal descending colon to the proximal transverse colon with two fires of the SHAHBAZ-80 blue stapler.?? The first fire created a kibf-qu-rjfs anastomosis and the second fire closed the [...] x2 at the termination of the case. IGN EXCHANGE TRADER documented in this encounter Miscellaneous Notes * Care Plan - Alia Milian RN - 03/28/2021 5:39 PM CST patient given d/c instructions and new rx. no questions at this time. Pt. Verbalized understanding.Called transportation. IV removed at bedside, pt. tolerated well. Pt left via wheelchair. IGN EXCHANGE TRADER * Care Plan - Lindsay Banegas RN - 03/28/2021 5:37 AM CST Pt. Mary Barksdale&Beulah4, complained of mild abdominal pain managed with PRN josseline Pt. Up independently, ambulated down hallway and in room several times. UOP adequate per hat +flatus Tolerating full liquid diet, no N/V Abdominal sites c/d/i binder in place. Call light and belongings in reach, fall precautions maintained, VSS. IGN EXCHANGE TRADER * Care Plan - Lindsay Banegas RN - 03/27/2021 6:00 AM CST Pt. Mary Gama, complained of mild abdominal pain managed with [...] belongings in reach, fall precautions maintained, VSS. IGN EXCHANGE TRADER * Care Plan - Lindsay Banegas RN [...] wound care services. 5. Is a medical scribe in place?no If yes, remove device/brace/splint to [...] tears) Wound care consult was not initiated. [facility] Skin Care Injury Prevention and Treatment Protocol [facility] Approved by: [facility] - Medical Executive Committee Approval Date: [...] treatments found in the Wound Care Algorithm. IGN EXCHANGE TRADER * Care Hank - Terry Cueva RN - 03/26/2021 6:36 PM CST Potential for pain related to surgical/procedural intervention Interventions: Assess level of pain/comfort utilizing verbal/nonverbal pain scales; assess culturalor moravian indicators attached to pain; administer pain medications [...] no bleeding or hematoma from surgical site IGN EXCHANGE TRADER * Care Plan - Stephanie Gibbs RN [...] of surgery and perioperative experience Outcome Met: IGN EXCHANGE TRADER documented in this encounter Plan of Treatment Upcoming Encounters Date Type Department Care Team (Late st Contact Info) Description 06/13/2024 10:15 AM FOREIGN EXCHANGE TRADER Office Visit [facility] Oncology and Hematology - Neymar [address] [facility] [address] [place] [address] Yosef Salmeron MD [address] [facility] [address] [place] [address] documented as of this encounter Procedures Procedure Name Priority Date/Time Associated Diagnosis Comments CBC WITH DIFFERENTIAL Routine 03/27/2021 6:14 AM FOREIGN EXCHANGE TRADER BASIC METABOLIC PANEL Routine 03/27/2021 6:14 AM FOREIGN EXCHANGE TRADER PATHOLOGY Pathology 03/26/2021 4:40 PM FOREIGN EXCHANGE TRADER IR INJECTION Routine 03/26/2021 1:55 PM FOREIGN EXCHANGE TRADER NV IV INJECTION TEST VASCULAR FLOW FLAP/GRAFT 03/26/2021 11:30 AM FOREIGN EXCHANGE TRADER NV LAPS COLECTOMY PRTL W/END CLST & CLSR DSTL SGM 03/26/2021 11:30 AM FOREIGN EXCHANGE TRADER NV LAPS MOBLJ SPLENIC FLXR PFRMD W/PRTL COLECTOMY 03/26/2021 11:30 AM FOREIGN EXCHANGE TRADER VERIFICATION BLOOD GROUP Stat 03/26/2021 11:11 AM FOREIGN EXCHANGE TRADER Encounter for blood typing PREPARE RED BLOOD CELLS Routine 03/26/2021 10:26 AM FOREIGN EXCHANGE TRADER PREPARE RED BLOOD CELLS Stat 03/26/2021 10:26 AM FOREIGN EXCHANGE TRADER POC , URINE Routine 03/26/2021 10:11 AM FOREIGN EXCHANGE TRADER documented in this encounter Results * (ABNORMAL) BASIC METABOLIC PANEL (03/27/2021 6:14 AM FOREIGN EXCHANGE TRADER) Pathologist [facility] SODIUM 141 136 - 145 mmol/L 03/27/2021 7:52 AM FOREIGN EXCHANGE TRADER [employer] [facility] - . [facility] POTASSIUM 3.8 3.5 - 5.0 mmol/L 03/27/2021 7:52 AM FOREIGN EXCHANGE TRADER [employer] [facility] - . [facility] CHLORIDE 106 98 - 107 mmol/L 03/27/2021 7:52 AM FOREIGN EXCHANGE TRADER [employer] [facility] - [facility] CO2 24 22 - 29 mmol/L 03/27/2021 7:52 AM [facility] [employer] [facility] - . [facility] CALCIUM 9.0 8.6 - 10.2 mg/dL 03/27/2021 7:52 AM FOREIGN EXCHANGE TRADER [employer] [facility] - . [facility] BUN 6 6 - 20 mg/dL 03/27/2021 7:52 AM [facility] [employer] [facility] - . [facility] CREATININE 0.71 0.51 - 0.95 mg/dL 03/27/2021 7:52 AM FOREIGN EXCHANGE TRADER [employer] [facility] - . [facility] GLUCOSE 127(H) 74 - 99 mg/dL 03/27/2021 7:52 AM FOREIGN EXCHANGE TRADER [employer] [facility] GFR >60 mL/min/1.7 3 sq meter 03/27/2021 7:52 AM FOREIGN EXCHANGE TRADER [employer] [facility]OR[facility] - [facility] Comment: eGFR has not been validated for [...] mL/min/1.7 3 sq meter 03/27/2021 7:52 AM [employer] LABORATORY SERVICES [facility] ANION GAP 11 8 - 16 mmol/L 03/27/2021 7:52 AM [facility] [employer] SERVICES - [facility] Blood Venipuncture / Unknown 03/27/2021 6:14 AM FOREIGN EXCHANGE TRADER 03/27/2021 7:20 AM FOREIGN EXCHANGE TRADER Katelyn Jack MD CHEMISTRY ORDERABLES [email or web address] [facility] CL[facility] [id number] 5 [facility] [place] [id number] * (ABNORMAL) CBC WITH DIFFERENTIAL (03/27/2021 6:14 AM FOREIGN EXCHANGE TRADER) WBC 6.9 4.0 - 9.8 K/uL 03/27/2021 7:38 AM [facility] [employer] [facility] - [facility] RBC 4.04 3.90 - 4.90 M/uL 03/27/2021 7:38 AM [facility] [employer] LABORATORY SERVICES - [facility] HEMOGLOBIN 11.9 11.8 - 14.8 g/dL 03/27/2021 7:38 AM [facility] [employer] SERVICES - [facility] HEMATOCRIT 37.4 35.5 - 44.0 % 03/27/2021 7:38 AM FOREIGN EXCHANGE TRADER [employer] [facility] - [facility] MCV 92.6 82.0 - 99.0 fL 03/27/2021 7:38 AM [facility] [employer] SERVICES - [facility] MCH 29.5 27.2 - 32.6 pg 03/27/2021 7:38 AM FOREIGN EXCHANGE TRADER [employer] [facility] - [facility] MCHC 31.8 31.5 - 35.5 g/dL 03/27/2021 7:38 AM FOREIGN EXCHANGE TRADER [employer] SERVICES - [facility] RDW 13.6 11.5 - 14.5 % 03/27/2021 7:38 AM [employer] LABORATORY SERVICES - [facility] RDW-STDEV 46.6 37.1 - 48.7 fL 03/27/2021 7:38 AM [employer] LABORATORY SERVICES - [facility] PLATELETS 220 140 - 350 K/uL 03/27/2021 7:38 AM [facility] SERVICES - [facility] MPV 10.4 9.3 - 12.4 fL 03/27/2021 7:38 AM [facility]OR[facility] SERVICES - [facility] NEUTROPHILS 87 % 03/27/2021 7:38 AM [facility] - [facility] LYMPHOCYTES 6 % 03/27/2021 7:38 AM [facility] SERVICES - [facility] MONOCYTES 7 % 03/27/2021 7:38 AM [facility] - [facility] EOSINOPHILS 0 % 03/27/2021 7:38 AM [facility] SERVICES - [facility] BASOPHILS 0 % 03/27/2021 7:38 AM [facility] SERVICES - [facility] IMMATURE GRANULOCYTES 0 % 03/27/2021 7:38 AM [facility] SERVICES - [facility] NEUTROPHIL ABSOLUTE 6.01 1.90 - 7.00 K/uL 03/27/2021 7:38 AM [facility] SERVICES - [facility] LYMPHOCYTE ABSOLUTE 0.39(L) 0.70 - 4.50 K/uL 03/27/2021 7:38 AM [facility] SERVICES - [facility] MONOCYTE ABSOLUTE 0.45 0.10 - 1.30 K/uL 03/27/2021 7:38 AM [facility] SERVICES - [facility] EOSINOPHIL ABSOLUTE 0.01 0.00 - 0.70 K/uL 03/27/2021 7:38 AM [facility] [email or web address] LABORATORY SERVICES - [facility] BASOPHILS ABSOLUTE 0.03 0.00 - 0.20 K/uL 03/27/2021 7:38 AM [facility] LABORATORY SERVICES - [facility] IMMATURE GRANULOCYTES ABSOLUTE 0.03 0.00 - 0.03 K/uL 03/27/2021 7:38 AM [facility] SERVICES - [facility] Blood Venipuncture / Unknown 03/27/2021 6:14 AM FOREIGN EXCHANGE TRADER 03/27/2021 7:21 AM FOREIGN EXCHANGE TRADER Katelyn Jack MD HEMATOLOGY ORDERABLE S [facility]# [id number] 5 [facility] [place] [address] * PATHOLOGY (03/26/2021 4:40 PM FOREIGN EXCHANGE TRADER) CASE REPORT Surgical Pathology Report ? Case: [id number] ? Authorizing Provider: ??Katelyn Jack MD ? Collected: ? 03/26/2021 04:40 PM ? Ordering Location: ? [facility] ?Received: ?03/29/2021 07:37 AM ? Operating Room ? Pathologist: ? Yue, Joseph R, DO ? Specimen: ?Splenic flexure ? 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 -Lymphovascular space invasion present, including intramural and extramural large vessel (venous) invasion. -Perineural invasion present. -Margins free of tumor. 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 03/31/2021 4:51 PM [facility] [employer] [facility] S DESCRIPTION Received in a single container labeled Mary Casper Rajat, splenic flexure is a 16 cm long [...] attached fat is dissected for lymph nodes. Clinical Account Executive sections are submitted in cassettes as follows: A1 stapled margin closest to mass; A2 opposite stapled margin; A3 mesenteric margin closest to mass; A4 through A8 mass; A9 through A 14 multiple potential lymph nodes; A 15 and A 16 each 1 potential lymph node bisected. KA 03/31/2021 4:51 PM [facility] [employer] [facility] MICROSCOPIC DESCRIPTION The slides are labeled [id number] and Mary Earl. Sections of the grossly [...] report for additional information. 03/31/2021 4:51 PM [facility] OPERATIVE PROCEDURE 1: SPLENIC FLEXURE MOBILIATION LAPAROSCOPIC 2: SIGMOID COLECTOMY HAND ASSISTED LAPAROSCOPIC 3: IV INJECTION OF AGENT FOR VASCULAR FLOW IN FLAP OR GRAFT 03/31/2021 4:51 PM [facility] CLINICAL INFORMATION 03/31/2021 4:51 PM [facility] SYNOPTIC REPORT COLON AND RECTUM: [...] Lymph Nodes (pN): ?pN1a 03/31/2021 4:51 PM FOREIGN EXCHANGE TRADER [facility] COMMENT Special stain and/or immunohistochemical results are interpreted with controls that demonstrate appropriate staining reactions. Note on use of immunocytochemistry reagents: This test was developed and its performance characteristics determined by [facility], Department of Laboratory Medicine. It has [...] part or completely in the following laboratories: [facility], [place] #[id number] [address] [place] [address] [facility], [place] #[id number] [address] [place] [address] [facility]/[place], [place] #[id number] [address] [place] [address] This report was created with the [employer] voice-activated dictation system. Inherent to this system is the possibility of syntax, grammar, punctuation and other errors that could impact the interpretation of the report. If there are interpretative questions about aspects of this report, please contact the performing pathologist. 03/31/2021 4:51 PM [facility] Tissue (Splenic flexure) Collection / Unknown 03/26/2021 4:40 PM FOREIGN EXCHANGE TRADER 03/29/2021 7:37 AM FOREIGN EXCHANGE TRADER Katelyn Jack MD PATHOLOGY/CYTOLOGY O RDERABLES [facility] LABORATORY SERVICES - [facility]# [id number] [address] [place] [address] * IR INJECTION (03/26/2021 1:55 PM FOREIGN EXCHANGE TRADER) Narrative 03/26/2021 1:55 PM FOREIGN EXCHANGE TRADER Order information only. ??Exam was auto-finalized. ?? Dangelo Rhoades MD IR ORDERABLES * VERIFICATION BLOOD GROUP (03/26/2021 11:11 AM FOREIGN EXCHANGE TRADER) ABO GROUP A 03/26/2021 11:54 AM FOREIGN EXCHANGE TRADER [facility] LABORATORY SERVICES -- .[facility] RH (D) TYPE Positive 03/26/2021 11:54 AM FOREIGN EXCHANGE TRADER [facility] LABORATORY SERVICES -- [facility] Blood Venipuncture / Unknown 03/26/2021 11:11 AM FOREIGN EXCHANGE TRADER 03/26/2021 11:12 AM FOREIGN EXCHANGE TRADER Rosa Espinosa MD BLOOD BANK ORD ERABLES [facility] LABORATORY SERVICES -- [facility]# [id number] [address] [place] [address] * PREPARE RED BLOOD CELLS (03/26/2021 10:26 AM FOREIGN EXCHANGE TRADER) COMPONENT TYPE [id number] [facility]ATORY SERVICES -- [facility] COMPONENT IDENTIFICATION [id number] [facility] ABO A [facility] RH POS [facility] CROSSMATCH Compatible [facility] COMPONENT STATUS Returned [facility]ATORY SERVICES -- [facility] COMPONENT EXPIRATION DATE/TIME [id number] [facility] COMPONENT CODING SYSTEM [address] [facility] LAB[facility]ORY SERVICES -- [facility] 03/26/2021 10:2 6 AM FOREIGN EXCHANGE TRADER Katelyn Jack MD LAB TRANSFUSION TANISHA MERCER [facility] LABORATORY SERVICES -- [facility]# [id number] [address] [place] [address] * PREPARE RED BLOOD CELLS (03/26/2021 10:26 AM FOREIGN EXCHANGE TRADER) Pathologist [facility] COMPONENT TYPE [id number] [facility]ATORY SERVICES -- [facility] COMPONENT IDENTIFICATION [id number] [facility] LABORATORY SERVICES -- [facility] ABO A [facility] RH POS [facility] CROSSMATCH Compatible [facility] COMPONENT STATUS Returned [facility] LAB[facility]ATORY SERVICES -- [facility] COMPONENT EXPIRATION DATE/TIME [facility] COMPONENT CODING SYSTEM [address] [facility]ATORY SERVICES -- [facility] Other, specify 03/26/2021 10 :26 AM FOREIGN EXCHANGE TRADER Katelyn Jack MD LAB TRANSFUSION TANISHA MERCER Performing Organization Address City/[facility]/ZIP Co de Phone Number [facility] LABORATORY SERVICES -- [facility]# [id number] [address] [place] [address] * POC , URINE (03/26/2021 10:11 AM FOREIGN EXCHANGE TRADER) Pathologist [facility] HCG QUAL URINE Negative Negative 03/26/2021 10:11 AM FOREIGN EXCHANGE TRADER [facility] LABORATORY SERVICES - [facility] SURFACE BOSS NAME POC STEPHANIE GIBBS 03/26/2021 10:11 AM FOREIGN EXCHANGE TRADER [facility] - [facility] Urine 03/26/2021 10:1 1 AM FOREIGN EXCHANGE TRADER 03/29/2021 10:16 AM FOREIGN EXCHANGE TRADER Katelyn Jack MD POINT OF CARE TESTIN G [facility] LABORATORY SERVICES - [facility]# [id number] [address] [place] [address] * 2019 NOVEL CORONAVIRUS (COVID-19) PCR DETECTION (03/22/2021 11:22 AM FOREIGN EXCHANGE TRADER) COVID-19 PCR NOT DETECTED Not Detected 03/22/20 6:58 PM FOREIGN EXCHANGE TRADER [facility] LABORATORY [facility] PERFORMING LAB [facility] 03/22/2021 6:58 PM FOREIGN EXCHANGE TRADER [facility] Upper Respiratory ANTERIOR NARES SWAB / Unknown Collection / Unknown 03/22/2021 11:22 AM FOREIGN EXCHANGE TRADER 03/22/2021 2:00 PM FOREIGN EXCHANGE TRADER Narrative [facility] - 03/22/2021 6:58 PM FOREIGN EXCHANGE TRADER This test has been authorized by the [...] 2019-Novel Coronavirus. Katelyn Jack MD MICROBIOLOGY - [facility] AL ORDERABLES [facility]# [id number] [address] [place] [address] documented in this encounter Visit Diagnoses Diagnosis Pre-op testing- Primary Preoperative examination, unspecified Encounter for blood typing Acute colitis Other and unspecified noninfectious gastroenteritis and colitis S/P partial resection of colon Other postprocedural status Malignant neoplasm of transverse colon documented in this encounter Administered Medications Inactive Administered Medications - up to 3 most recent administrations Medication Order MAR Action Action Date Dose Rate Site acetaminophen (TYLENOL) tablet 1,000 mg 1,000 mg, Oral, PRE-PROCEDURE ONCE, 1 dose, Starting on Mon03/26/21 at 1026, Until Mon03/26/21 at 1110, Routine, Pre-op Given 03/26/2021 11:10 AM FOREIGN EXCHANGE TRADER 1,000 mg acetaminophen (TYLENOL) tablet 650 mg 650 mg, Oral, EVERY 6 HOURS, First dose on 03/27/21 at 0000, Until Discontinued, Routine, Post-op - Floor Given 03/28/2021 4:56 PM FOREIGN EXCHANGE TRADER 650 mg Given 03/28/2021 12:37 PM FOREIGN EXCHANGE TRADER 650 mg Given 03/28/2021 5:30 AM FOREIGN EXCHANGE TRADER 650 mg alvimopan (ENTEREG) capsule 12 mg 12 mg, Oral, PRE-PROCEDURE ONCE, 1 dose, Starting on Mon03/26/21 at 1026, Until Mon03/26/21 at 1110, Routine, Pre-op Given 03/26/2021 11:10 AM FOREIGN EXCHANGE TRADER 12 mg alvimopan (ENTEREG) capsule 12 mg 12 mg, Oral, TWO TIMES DAILY, 14 doses, First dose on Mon03/27/21 at 0900, Last dose on Mon04/02/21 at 2100, Routine, Post-op - Floor, The ordering provider acknowledges review of the [facility] education on the benefits and risks of alvimopan? (see reference links above): Yes Given 03/27/2021 8:44 PM FOREIGN EXCHANGE TRADER 12 mg Given 03/27/2021 8:35 AM FOREIGN EXCHANGE TRADER 12 mg celecoxib (CeleBREX) capsule 200 mg 200 mg, Oral, PRE-PROCEDURE ONCE, 1 dose, Starting on Mon03/26/21 at 1026, Until Mon03/26/21 at 1110, Routine, Pre-op Given 03/26/2021 11:10 AM FOREIGN EXCHANGE TRADER 200 mg celecoxib (CeleBREX) capsule 200 mg 200 mg, Oral, DAILY WITH BREAKFAST, First dose on 03/27/21 at 0700, Until Discontinued, Routine, Post-op - Floor Given 03/28/2021 8:32 AM FOREIGN EXCHANGE TRADER 200 m g Given 03/27/2021 8:35 AM FOREIGN EXCHANGE TRADER 200 mg enoxaparin (LOVENOX) injection 40 mg 40 mg, subCUT, EVERY 24 HOURS, First dose on 03/27/21 at 1200, Until Discontinued, Routine, Post-op - Floor, Indication: Prophylaxis of VTE, Dose to be adjusted per facility protocol? Yes Given 03/28/2021 12:41 PM FOREIGN EXCHANGE TRADER 40 mg Abdominal Tissue Given 03/27/2021 12:41 PM FOREIGN EXCHANGE TRADER 40 mg A bdominal Tissue famotidine (PEPCID) tablet 20 mg 20 mg, Oral, TWO TIMES DAILY, First dose on Mon03/26/21 at 2115, Until Discontinued, Routine, Post-op - Floor Given 03/28/2021 8:32 AM FOREIGN EXCHANGE TRADER 20 mg Given 03/27/2021 8:44 PM FOREIGN EXCHANGE TRADER 20 mg Given 03/27/2021 8:35 AM FOREIGN EXCHANGE TRADER 20 mg fentaNYL PF (SUBLIMAZE) 50 mcg/mL injection 25 mcg 25 mcg, IV, POST-PROCEDURE Q 3 MINUTES PRN, 5 doses, Starting on Mon03/26/21 at 0958, Until Mon03/26/21 at 2109, Pain, Routine, PACU Given 03/26/2021 7:41 PM FOREIGN EXCHANGE TRADER 25 mcg gabapentin (NEURONTIN) capsule 100 mg 100 mg, Oral, EVERY 8 HOURS, First dose on Mon03/26/21 at 2300, Until Discontinued, Routine, Post-op - Floor Given 03/28/2021 12:37 PM FOREIGN EXCHANGE TRADER 100 mg Given 03/28/2021 5:30 AM FOREIGN EXCHANGE TRADER 100 mg Given 03/27/2021 8:44 PM FOREIGN EXCHANGE TRADER 100 mg heparin injection 5,000 Units 5,000 Units, subCUT, PRE-PROCEDURE ONCE, 1 dose, Starting on Mon03/26/21 at 1026, Until Mon03/26/21 at 1116, Routine, Pre-op Given 03/26/2021 11:16 AM FOREIGN EXCHANGE TRADER 5,000 Units Abdomen, Left Lower Quadrant lactated ringers infusion IV, at 30 mL/hr, PRE-PROCEDURE CONTINUOUS, Starting on Mon03/26/21 at 1030, Until Mon03/26/21 at 2109, Routine, Pre-op New Bag 03/26/2021 2:37 PM FOREIGN EXCHANGE TRADER Restarted 03/26/2021 12:28 PM FOREIGN EXCHANGE TRADER New Bag 03/26/2021 11:09 AM FOREIGN EXCHANGE TRADER 30 mL/hr morphine 4 mg/mL injection 2 mg 2 mg, IV, EVERY 4 HOURS PRN, Starting on Mon03/26/21 at 2109, Until Mon03/28/21 at 1944, Pain (See admin instructions), Routine, Post-op - Floor Given 03/27/2021 12:52 PM FOREIGN EXCHANGE TRADER 2 mg ondansetron (ZOFRAN ODT) tablet 8 mg 8 mg, Oral, PRE-PROCEDURE ONCE, 1 dose, Starting on Mon03/26/21 at 1025, Until Mon03/26/21 at 1110, Routine, Pre-op Given 03/26/2021 11:10 AM FOREIGN EXCHANGE TRADER 8 mg ondansetron (ZOFRAN) 4 mg/2 mL injection 4 mg 4 mg, IV, EVERY 6 HOURS PRN, Starting on Mon03/26/21 at 2109, Until 03/28/21 at 1944, Nausea/Emesis, Routine, Post-op - Floor Given 03/28/2021 1:57 PM FOREIGN EXCHANGE TRADER 4 mg Given 03/27/2021 3:24 AM FOREIGN EXCHANGE TRADER 4 mg oxyCODONE (ROXICODONE) tablet 7.5 mg 7.5 mg, Oral, EVERY 4 HOURS PRN, Starting on Mon03/26/21 at 2109, Until 03/28/21 at 1944, Pain (See admin instructions), Routine, Post-op - Floor Given 03/28/2021 4:56 PM FOREIGN EXCHANGE TRADER 7.5 mg Given 03/28/2021 12:47 PM FOREIGN EXCHANGE TRADER 7.5 mg Given 03/28/2021 8:38 AM FOREIGN EXCHANGE TRADER 7.5 mg potassium CHLORIDE in dextrose 5% - NaCl 0.45% 1,000 mL 20 mEq/L infusion IV, at 100 mL/hr, CONTINUOUS, Starting on Mon03/26/21 at 2115, Until 03/28/21 at 1944, Routine, Post-op - Floor New Bag 03/26/2021 10:26 PM FOREIGN EXCHANGE TRADER 100 mL/hr scopolamine (TRANSDERM-SCOP) 1 mg/72 hr transdermal patch 1 Patch 1 Patch, Transdermal, PRE-PROCEDURE ONCE PRN, 1 dose, Starting on Mon03/26/21 at 1025, Until 03/28/21 at 1944, apply to mastoid area, Routine, Pre-op Applied 03/26/2021 11:15 AM FOREIGN EXCHANGE TRADER 1 Patch Ear, Left documented in this encounter Active and Recently Administered Medications Times are shown in FOREIGN EXCHANGE TRADER. Scheduled Medication Order 03/26/2021 03/27/2021 03/28/2021 acetaminophen (TYLENOL) tablet 1,000 mg (COMPLETED) 1,000 mg, Oral, PRE-PROCEDURE ONCE, 1 dose, Starting on Mon03/26/21 at 1026, Until 03/26/21 at 1110, Routine, Pre-op 1110 (Given - Provider: Stephanie Gibbs RN) acetaminophen (TYLENOL) tablet 650 mg 650 mg, Oral, EVERY 6 HOURS, First dose on 03/27/21 at 0000, Until Discontinued, Routine, Post-op - Floor 0004 (Given - Provider: Lindsay Banegas RN)0518 (Given - Provider: Lindsay Banegas RN)1241 (Given - Provider: Alia Milian RN)1826 (Given - Provider: Alia Milian RN) 0100 (Given - Provider: Lindsay Banegas RN)0530 (Given - Provider: Lindsay Banegas RN)1237 (Given - Provider: Alia Milian RN)1656 (Given - Provider: Alia Milian RN)1800 (Canceled Entry - Provider: Alia Milian RN) alvimopan (ENTEREG) capsule 12 mg (COMPLETED) 12 mg, Oral, PRE-PROCEDURE ONCE, 1 dose, Starting on Mon03/26/21 at 1026, Until Mon03/26/21 at 1110, Routine, Pre-op 1110 (Given - Provider: Stephanie Gibbs RN) alvimopan (ENTEREG) capsule 12 mg 12 mg, Oral, TWO TIMES DAILY, 14 doses, First dose on 03/27/21 at 0900, Last dose on Mon04/02/21 at 2100, Routine, Post-op - Floor, The ordering provider acknowledges review of the [facility] education on the benefits and risks of alvimopan? (see reference links above): Yes 0835 (Given - Provider: Alia Milian RN)2044 (Given - Provider: Lindsay Banegas RN) 0900 (Not Given - Provider: Alia Milian [...] facility protocol? Yes 1241 (Given - Provider: Aila Milian RN) 1241 (Given - Provider: Alia Milian RN) famotidine (PEPCID) tablet 20 mg 20 mg, Oral, TWO TIMES DAILY, First dose on Mon03/26/21 at 2115, Until Discontinued, Routine, Post-op - Floor 0005 (Given - Provider: Lindsay Banegas RN)0835 (Given - Provider: Alia Milian RN)204 (Given - Provider: Lindsay Banegas RN) 0832 [...] Routine, Pre-op 1116 (Given - Provider: Stephanie Gibbs, MAXX) ketamine bolus from infusion injection (COMPLETED)(Linked Group [...] 1110 (Given - Provider: Stephanie Gibbs, MAXX) Continuous Medication Order 03/26/2021 03/27/2021 03/28/2021 ketamine [...] Provider: IZZY Cochran - Comment: Switch to gravity)143 (Fluid Volume - Provider: IZZY Cochran)143 (New Bag - Provider: IZZY Cochran)175 (Fluid Volume - Provider: IZZY Thompson) potassium CHLORIDE in dextrose 5% - NaCl 0.45% 1,000 mL 20 mEq/L infusion IV, at 100 mL/hr, CONTINUOUS, Starting on Mon03/26/21 at 2115, Until Mon03/28/21 at 1944, Routine, Post-op - Floor 2114 (Canceled Entry - Provider: Lindsay Banegas, MAXX)2225 (New Bag - Provider: Lindsay Banegas RN) PRN Medication Order 03/26/2021 03/27/2021 03/28/2021 bupivacaine [...] Until Mon03/26/21 at 2109, Pain, Routine, PACU 194 (Given - Provider: Terry Cueva, MAXX) metoclopramide (REGLAN) 5 mg/mL injection 10 mg [...] Alia Milian RN)1247 (Given - Provider: Alia Milian, MAXX)1656 (Given - Provider: Alia Milian RN) prochlorperazine [...] Routine, Pre-op 1115 (Applied - Provider: Stephanie Gibbs, RN) 1744 (Due: Removed - Provider: PROVIDER, [...] Intra-Procedure documented in this encounter Care Teams 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
--- OUTSIDE RECORDS SUMMARY | 2024-05-06 09:06 | XMS_ITS | Encounter Summary ---
Author Organization [facility] Address [address] Attn: Epic Prelude ADT OLLIE HERRMANN [id number] Care Team Providers Care Educational Program Assistant Name Role Phone Cornelio Rayo DO Primary Care Provider [phone] Encounter Details Date Type Department Care Team (Latest Contact Info) Description 03/26/2021 Travel Social History Tobacco Use Types Packs/Day [...] COVID-19? 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 documented as of this encounter Plan of Treatment Upcoming Encounters Date Type Department Care Team (Late st Contact Info) Description 06/13/2024 10:15 AM SENIOR SECURITY ANALYST Office Visit [facility] Oncology and Hematology - [place] [address] [place] [address] Yosef Salmeron MD [address] [facility] [facility] [address] [place] [address] documented as of this encounter Visit Diagnoses Not on filedocumented in this encounter Care Teams Educational Program Assistant Relationship Specialty Start Date End Date Cornelio Rayo DO [address] [facility] [address] [facility] [address] [facility] [address] [place] [phone] PCP - General Internal Medicine 03/08/21 09/11/22 documented as of this encounter
--- OUTSIDE RECORDS SUMMARY | 2024-05-06 09:06 | XMS_ITS | Encounter Summary ---
Author Organization [facility] Address [address] [place] [address] Care Team Providers Care Customer Support Associate Name Role Phone Cornelio Rayo Primary Care Provider [phone] Reason for Visit * Auth/Cert Specialty Diagnoses / Procedures Referred By Contac t Referred To Contact Procedures OR LAP,SURG,COLECTOMY, PARTIAL, W/ANAST Katelyn Jack MD [address] [facility] [address] [place] [address] Referral ID Status Reason Start Date Expiration Date Visits Re quested Visits Authorized [id number] 03/10/2021 1 1 Encounter Details Date Type Department Care Team (Late st Contact Info) Description 03/26/2021 12:28 PM BRUSH WORKER Anesthesia Event [facility] Operating Room [address] [place] [address] Jewel Gaines MD [address] [place] [address] Thiago Lee FNP NO ADDRESS ON FILE Anesthesia Record Procedure Summary Procedure Name Responsible Anesthesiologist Anesthesia Start Time Anesthesia Stop Time SPLENIC FLEXURE MOBILIZATION DAVINCI XI (Abdomen) Jewel Gaines MD 03/26/21 1228 03/26/21 1757 Events Date Time Event Comment 03/26/2021 1052 1140 AN Equip Check Anesthesia eq uipment and materials checked in accordance with local policy. 1228 An Start 1230 In Room This event disp lays the In Room time documented in the Surgical Log. Deleting this event will not remove it from the log but will remove it from the Grid and Graph timeline. 1230 An Start Data 1236 Pre-Induction Immediate pre- induction anesthetic assessment performed. Vital signs as noted on graphic. 1238 An Induction 1241 An Intubation 1258 Anesthesia Ready 1336 Procedure Start This event d isplays the Procedure Start time documented in the Surgical Log. Deleting this event will not remove it from the log but will remove it from the Grid and Graph timeline. 1649 Handoff - Intraop Anesthesio logy transfer of care elements completed in accordance with procedure. 1743 Procedure Stop This event di splays the Procedure Stop time documented in the Surgical Log. Deleting this event will not remove it from the log but will remove it from the Grid and Graph timeline. 1747 An Extubation Emergence unev entful Awake, spontaneous respirations. Adequate muscle strength demonstrated Adequate tidal volume. Orapharynx suctioned. Extubated with positive pressure ventilation. 1750 an stop data 1752 Out of Room This event disp lays the Out of Room time documented in the Surgical Log. Deleting this event will not remove it from the log but will remove it from the Grid and Graph timeline. 1757 An Stop 1757 Hand-off to Receiving Clinic carolyn Post-Anesthetic transfer of care report elements to appropriate post-anesthesia recovery environment completed in accordance with procedure. Patient somnolent, breathing spont, and VSS. Report given to SQL SERVER CONSULTANT including meds, lines, procedure info, and pt. hx. Meds Name Total midazolam PF (VERSED) 1 mg/mL injection 2 mg dexmedetomidine (PRECEDEX) in dextrose 5 % 400 mcg/100 mL infusion 28 mcg fentaNYL (SUBLIMAZE) PF 50??mcg/mL injec tion 200 mcg lidocaine (XYLOCAINE) 2% injection 60 mg propofol (DIPRIVAN) 10??mg/mL injection 1,406 mg rocuronium (ZEMURON) 10 mg/mL 5 mL injec tion 110 mg ondansetron (ZOFRAN) 4??mg/2 mL injectio n 8 mg dexamethasone (DECADRON) 4 mg/mL injecti on 4 mg dexamethasone (DECADRON) 4 mg/mL injecti on 4 mg ketamine bolus from infusion injection 2 2.8 mg ketamine (KETALAR) 100 mg/10 mL infusion syringe 37.9 mg glycopyrrolate (ROBINUL) 0.4 mg/2 mL (0. 2 mg/mL) syringe 1 mg neostigmine (PROSTIGMINE) 1 mg/mL inject ion 5 mg cefOXitin (MEFOXIN) 2,000 mg in sodium c hloride 0.9% 50 mL IVPB (MBP) 4,000 mg bupivacaine (MARCAINE) 0.25% injection 6 0 mL hydromorPHONE (DILAUDID) 2 mg/mL injecti on 1 mg diphenhydrAMINE (BENADRYL) 50 mg/mL inje ction 12.5 mg famotidine (pf) (PEPCID) 20 mg/2 mL inje ction 20 mg indocyanine green (IC GREEN) 25 mg injec tion 15 mg ketorolac (TORADOL) 30??mg/mL injection 15 mg lactated ringers infusion 2,200 mL lactated ringers infusion 0 mL * Agents Name Air Sevoflurane % Sevoflurane O2 N2O Inspired N2O O2 * Blood No blood administrations on file. Lines, Drains, and Airways Type Details Placement Removal Peripheral IV Pre-Hospital Start: No; Orientation: Left; Location: Arm; Device: Angiocath; Gauge: 18 gauge; Needle Length: 1.25 in length; Insertion Attempts: 2 (started by Evon Porter and AA student); Patient Tolerance: tolerated well, appears comfortable; Removal Indication: removed per policy 03/26/21 1108 by Stephanie Gibbs RN 03/28/21 1645 by Alia Milian FNP Peripheral IV Orientation: Left; Location: Hand; Device: Angiocath; Gauge: 18 gauge; Needle Length: 1.25 in length; Removal Indication: no longer indicated (pt request) 03/26/21 1241 by Usman Torres AA-C 03/27/21 1800 by Alia Milian FNP Indwelling Urethral Catheter 03/26/21; 1250; No; Indwelling double lumen catheter; 100% silicone; 16 Fr; inserted; 1; 5; 10; 03/27/21; 0530 03/26/21 1250 by Steven Madden RN 03/27/21 0530 by Lindsay Banegas RN Endotracheal Airway Type: ETT; Size: 7; Attempts: 1; Verification: Auscultated bilateral breath sounds, Equal chest movement, Continuous waveform capnography 03/26/21 1424 by Usman Torres AA-C 03/26/21 1747 by Usman Cedeño AA-C Incision 03/26/21; 1734; surgical incision; Bilateral; abdomen; 03/29/21; 0544 03/26/21 1734 by Krystian Carballo RN 03/29/21 0544 by PROVIDER, DISCHARGE PATIENT documented in this [...] COVID-19? No / Unsure 03/26/2021 10:52 AM BRUSH WORKER documented as of this encounter OR Notes * Anesthesia Post-Op Follow-up Note - Italia Cotton RN - 03/27/2021 12:30 PM CST 03/27/2021 12:30 PM Mary Earl No apparent Anesthesia related complications, the entire anesthesia team was excellent. Italia Cotton RN H WORKER * Anesthesia Postprocedure Evaluation - Laurie Montgomery MD - 03/26/2021 6:47 PM CST Post Anesthesia Evaluation Vitals: Vitals Value Taken Time BP 139/90 03/26/21 1831 Temp 36.9 ??C 03/26/21 1753 Resp 13 03/26/21 1846 SpO2 99 % 03/26/21 1846 Pulse 66 03/26/21 1846 Heart Rate 66 bpm 03/26/21 1846 Vitals shown include unvalidated device data. Pain Rating: Anesthesia Post Evaluation Phase I Postanesthesia Evaluation Including Modified Jenaro Score Patient seen and evaluated: Modified Jenaro Score: Score: 8 (03/26/211833) COMMENTS: No apparent Anesthesia related complications RESPIRATORY FUNCTION: Respiration: able to breath and cough freely (03/26/211833) [2=able to breathe and cough freely, 1=dyspnea, limited breathing or tachypnea, 0=apnea or mechanicventilator] O2 Saturation: needs O2 inhalation to maintain O2 saturation greater than 90% (03/26/211833) [2=able to maintain O2 saturation greater than 92% on room air, 1=needs O2 inhalation to maintain O2 saturation greater than 90%, 0=O2 saturation less than 90% even with O2 supplement] Resp: 14 (03/26/211843)SpO2: 100 % (03/26/211843) CARDIOVASCULAR FUNCTION: Heart Rate: 78 bpm (03/26/211843) BP: (!) 139/90 (03/26/211830) Circulation: BP within 20% of preanesthetic level (03/26/211833) [2=BP within 20% of preanesthetic level, 1=BP within 20-49% of preanesthetic level, 0=BP within 50%of preanesthetic level] MENTAL STATUS, NEURO, ACTIVITY: PATIENT PARTICIPATION IN EVALUATION:yes Consciousness: arousable on calling (03/26/211833) [2=fully awake, 1=arousable on calling, 0=not responding] Activity: able to move 4 extremities voluntarily or on command (03/26/211833) [2=able to move 4 extremities voluntarily or on command, 1=able to move 2 extremities voluntarily or on command, 0=unable to move extremities voluntarily or on command] TEMPERATURE: Temp: 36.9 ??C (03/26/211752) PAIN: NAUSEA AND VOMITING: no nausea and no vomiting POSTOPERATIVE HYDRATION: well hydrated Intake/Output Summary (Last 24 hours) at 03/26/20211846 Last data filed at 03/26/20211756 Gross per 24 hour Intake 2250 ml Output 325 ml Net 1925 ml Laurie Montgomery MD 03/26/2021 6:47 PM Laurie Montgomery MD H WORKER * Anesthesia Handoff - StelzerUsman AA-C - 03/26/2021 5:57 PM BRUSH WORKER Post-Anesthetic transfer of care report elements to [...] and acknowledgement of understanding. Vital Signs: BP: 107/63 (03/26/2021 5:53 PM) Pulse: 68 (03/26/2021 5:53 PM) Temp: 36.9 ??C (03/26/2021 5:53 PM) Resp: 12 (03/26/2021 5:53 PM) SpO2: 99 % (03/26/2021 5:53 PM) 5:57 PM IZZY Thompson H WORKER * Anesthesia Procedure Notes - Usman Torres AA-C - 03/26/2021 2:23 PM BRUSH WORKER Associated Order(s): Airway Airway Location: OR Plan: routine intubation Patient Identity Confirmed by: Verbally with patient and armband Airway: not difficult Performed by: AA: Usman Torres AA-C Indications and Patient Condition: Indications for Airway Management: Anesthesia Preoxygenated: Yes Mask Difficulty Assessment: 2 - vent by mask + OA or adjuvant +/- NMBA Plan to extubate at end of case: Yes Final Airway Details: Final Airway Type: Endotracheal airway Final Endotracheal Airway: ETT Cuffed: Yes Technique Used for Successful ETT Placement: Direct laryngoscopy Devices/Methods Used in Placement: Straight blade Insertion Site: Oral Laryngoscope Blade/Videolaryngoscope Blade Size: 2 ETT Size (mm): 7.0 Measured from: Lips ETT to Lips (cm): 21 Tube secured with: Tape Placement Verified by: auscultation, end tidal CO2 and chest rise Cormack-Lehane Classification: Grade I - full view of glottis Number of Attempts at Approach: 1 Additional Comments: Uneventful H WORKER * Anesthesia Procedure Notes - Usman Torres AA-C - 03/26/2021 12:58 PM BRUSH WORKER Associated Order(s): Peripheral Block Peripheral Block Patient location during procedure: Pre-op Start time: 03/26/2021 12:50 PM End time: 03/26/2021 12:58 PM Reason for block: at surgeon's request and post-op pain management Staffing Performed by: Dangelo Rhoades MD Assisted by: Itzel Lechuga RN Preanesthetic Checklist Completed: patient identified, IV checked, site marked, risks and benefits discussed, surgical consent, monitors and equipment checked, pre-op evaluation and timeout performed Peripheral Block: Hand hygiene performed prior to procedure Patient was prepped and draped in usual sterile fashion Time out performed Patient position: Supine Prep: ChloraPrep Patient monitoring: Continuous pulse oximetry, Heart rate, EKG and Non-invasive blood pressure Block type: TAP Anesthesia laterality: bilateral. Injection technique: Single-shot Amery Identification: ultrasound guided Local infiltration anesthetic: Lidocaine 2%- 2 mL. Local injected: Bupivacaine Needle Needle type: Short-bevel Needle gauge: 22 G Needle length: 8 cm. Needle localization: Ultrasound guidance Nerve Stimulator or Paresthesia Response Motor response or paresthesia obtained mA ms Depth (cm) Sedation Given: Patient Response: Asleep Assessment Heart rate change: no Slow fractionated injection: yes Narrative Injections made incrementally with aspirations every (mL): 5 Events: easy and well tolerated Outcome: A full evaluation is pending Additional Notes I have discussed with the patient, and/or surrogate, the placement of a transverse abdominus plane block for postoperative pain management. We have discussed the risks, benefits, complications and side effects. We have also discussed alternative methods of postoperative analgesia. The patient, and/or surrogate, understands and wishes to proceed with the procedure. Heart rate and Sp02 monitored during and immediately following procedure and stable throughout. H WORKER * Anesthesia Preprocedure Evaluation - Jewel Gaines MD - 03/25/2021 5:45 PM CST Relevant Problems No relevant active problems Anesthesia Evaluation Airway Mallampati: II TM distance: >3 FB Neck ROM: full Dental - normal exam Pulmonary - normal exam breath sounds clear to auscultation (+) pneumonia, Cardiovascular - normal exam Rhythm: regular Rate: normal Neuro/Psych GI/Hepatic/Renal Endo/Other Abdominal Anesthesia History History of PONV. Anesthesia Plan ASA Final: 3 General Intravenous induction Oral ETT airway maintenance NPO status > 6 hours Anesthetic plan and risks discussed with Patient, Spouse and Patient Designated Wild Animal Caretaker. Plan discussed with Surgeon, Other and Anesthesiologist Wood Chopper. Post-op Pain Control Plan to use IV or IM medication for post-op pain control. Plan for postoperative opioid use Smoking Compliance Patient did not smoke on day of surgery H WORKER documented in this encounter Miscellaneous Notes * Addendum Note - Italia Cotton RN - 03/27/2021 12:31 PM CST Addendum created 03/27/21 1231 by Italia Cotton RN Clinical Note Signed H WORKER documented in this encounter Plan of Treatment Upcoming Encounters Date Type Department Care Team (Late st Contact Info) Description 06/13/2024 10:15 AM BRUSH WORKER Office Visit [facility] Oncology and Hematology - Neymar [address] [facility] [address] [place] [address] Yosef Salmeron MD [address] [facility] [address] [place] [address] documented as of this encounter Procedures Procedure Name Priority Date/Time Associated Diagnosis Comments OR ANES INSERT ENDOTRACHEAL AIRWAY Routine 03/26/2021 2:23 PM BRUSH WORKER OR ANESTHESIA BLOCK PB PLACEHOLDER CHARGE Routine 03/26/2021 12:58 PM BRUSH WORKER documented in this encounter Results * OR ANES INSERT ENDOTRACHEAL AIRWAY (03/26/2021 2:23 PM BRUSH WORKER) Narrative Usman Torres AA-C - 03/26/2021 2:23 PM BRUSH WORKER Usman Torres AA-C ? 03/26/2021 ??2:24 PM Airway Location: OR Plan: routine intubation Patient Identity Confirmed by: ??Verbally with patient and armband Airway: not difficult Performed by: AA: ??Usman Torres AA-C Indications and Patient Condition: ??Indications for Airway Management: ??Anesthesia ??Preoxygenated: Yes ?Mask Difficulty Assessment: ??2 - vent by mask + OA or adjuvant +/- NMBA ??Plan to extubate at end of case: Yes ?? Final Airway Details: ??Final Airway Type: ??Endotracheal airway ??Final Endotracheal Airway: ??ETT ??Cuffed: Yes ?Technique Used for Successful ETT Placement: ??Direct laryngoscopy ??Devices/Methods Used in Placement: ??Straight blade ??Insertion Site: ??Oral ??Laryngoscope Blade/Videolaryngoscope Blade Size: ??2 ??ETT Size (mm): ??7.0 ??Measured from: ??Lips ??ETT to Lips (cm): ??21 ??Tube secured with: ??Tape ??Placement Verified by: auscultation, end tidal CO2 and chest rise ?Cormack-Lehane Classification: ??Grade I - full view of glottis ??Number of Attempts at Approach: ??1 Additional Comments: ?? Uneventful Katelyn Jack MD PROCEDURE/MINOR SURG ICAL ORDERABLES * OR ANESTHESIA BLOCK PB PLACEHOLDER CHARGE (03/26/2021 12:58 PM BRUSH WORKER) Narrative Usman Torres AA-C - 03/26/2021 12:58 PM BRUSH WORKER Usman Torres AA-C ? 03/26/2021 12:59 PM Peripheral Block Patient location during procedure: Pre-op Start time: 03/26/2021 12:50 PM End time: 03/26/2021 12:58 PM Reason for block: at surgeon's request and post-op pain management Staffing Performed by: Dangelo Rhoades MD Assisted by: Itzel Lechuga RN Preanesthetic Checklist Completed: patient identified, IV checked, site marked, risks and benefits discussed, surgical consent, monitors and equipment checked, pre-op evaluation and timeout performed Peripheral Block: Hand hygiene performed prior to procedure Patient was prepped and draped in usual sterile fashion Time out performed Patient position: Supine Prep: ChloraPrep Patient monitoring: Continuous pulse oximetry, Heart rate, EKG and Non-invasive blood pressure Block type: TAP Anesthesia laterality: bilateral. Injection technique: Single-shot Amery Identification: ultrasound guided Local infiltration anesthetic: Lidocaine 2%- 2 mL. Local injected: Bupivacaine Needle Needle type: Short-bevel Needle gauge: 22 G Needle length: 8 cm. Needle localization: Ultrasound guidance Nerve Stimulator or Paresthesia Response Motor response or paresthesia obtained mA ms Depth (cm) ? Sedation Given: Patient Response: Asleep Assessment Heart rate change: no Slow fractionated injection: yes Narrative Injections made incrementally with aspirations every (mL): 5 Events: easy and well tolerated Outcome: A full evaluation is pending Additional Notes I have discussed with the patient, and/or surrogate, the placement of a transverse abdominus plane block for postoperative pain management. ??We have discussed the risks, benefits, complications and side effects. ??We have also discussed alternative methods of postoperative analgesia. ??The patient, and/or surrogate, understands and wishes to proceed with the procedure. Heart rate and Sp02 monitored during and immediately following procedure and stable throughout. Katelyn Jack MD PROCEDURE/MINOR SURG ICAL ORDERABLES documented in this encounter Visit Diagnoses Not on filedocumented in this encounter Administered Medications Inactive Administered Medications - up to 3 most recent administrations Medication Order MAR Action Action Date Dose Rate Site bupivacaine HCl (MARCAINE, SENSORCAINE) 2.5 mg/mL (0.25%) injection Infiltration, INTRA-PROCEDURE PRN, Starting on Mon03/26/21 at 1258, Until Mon03/26/21 at 1757, Routine, Anesthesia Intra-op Given 03/26/2021 12:58 PM BRUSH WORKER 30 mL Given 03/26/2021 12:54 PM BRUSH WORKER 30 mL cefOXitin (MEFOXIN) 2,000 mg in sodium chloride 0.9% 50 mL IVPB (MBP) 2,000 mg, IV, PRE-PROCEDURE ONCE, 1 dose, Starting on Mon03/26/21 at 1026, Until Mon03/26/21 at 1532, Routine, Pre-op, Antibiotic Indication: Surgical prophylaxis Bolus 03/26/2021 3:02 PM BRUSH WORKER 2,000 mg New Bag 03/26/2021 1:00 PM BRUSH WORKER 2,000 mg dexamethasone (DECADRON) 4 mg/mL injection See Admin Instructions, INTRA-PROCEDURE PRN, Starting on Mon03/26/21 at 1254, Until Mon03/26/21 at 1757, Routine, Anesthesia Intra-op Given 03/26/2021 12 :58 PM BRUSH WORKER 2 mg Given 03/26/2021 12:54 PM BRUSH WORKER 2 mg dexamethasone (DECADRON) 4 mg/mL injection IV, INTRA-PROCEDURE PRN, Starting on Mon03/26/21 at 1250, Until Mon03/26/21 at 1757, Routine, Anesthesia Intra-op Given 03/26/2021 12:50 PM BRUSH WORKER 4 mg dexmedeTOMIDine in dextrose 5% (PRECEDEX) 400 mcg/100 mL (4 mcg/mL) infusion IV, INTRA-PROCEDURE PRN, Starting on Mon03/26/21 at 1228, Until Mon03/26/21 at 1757, Anesthesia Intra-op Given 03/26/2021 4:58 PM BRUSH WORKER 8 mcg Given 03/26/2021 1:46 PM BRUSH WORKER 4 mcg Given 03/26/2021 1:42 PM BRUSH WORKER 4 mcg diphenhydrAMINE (BENADRYL) injection IV, INTRA-PROCEDURE PRN, Starting on Mon03/26/21 at 1300, Until Mon03/26/21 at 1757, Routine, Anesthesia Intra-op Given 03/26/2021 1:00 PM BRUSH WORKER 12.5 mg famotidine PF (PEPCID) 20 mg/2 mL injection IV, INTRA-PROCEDURE PRN, Starting on Mon03/26/21 at 1415, Until Mon03/26/21 at 1757, Routine, Anesthesia Intra-op Given 03/26/2021 2:15 PM BRUSH WORKER 20 mg fentaNYL PF (SUBLIMAZE) 50 mcg/mL injection IV, INTRA-PROCEDURE PRN, Starting on Mon03/26/21 at 1347, Until Mon03/26/21 at 1757, Routine, Anesthesia Intra-op Given 03/26/2021 2:20 PM BRUSH WORKER 50 mcg Given 03/26/2021 2:08 PM BRUSH WORKER 50 mcg Given 03/26/2021 1:47 PM BRUSH WORKER 25 mcg glycopyrrolate (ROBINUL) injection IV, INTRA-PROCEDURE PRN, Starting on Mon03/26/21 at 1727, Until Mon03/26/21 at 1757, Routine, Anesthesia Intra-op Given 03/26/2021 5:27 PM BRUSH WORKER 1 mg HYDROmorphone (DILAUDID) 2 mg/mL injection IV, INTRA-PROCEDURE PRN, Starting on Mon03/26/21 at 1347, Until Mon03/26/21 at 1757, Routine, Anesthesia Intra-op Given 03/26/2021 2:30 PM BRUSH WORKER 0.4 mg Given 03/26/2021 2:08 PM BRUSH WORKER 0.2 mg Given 03/26/2021 1:47 PM BRUSH WORKER 0.4 mg indocyanine green (IC GREEN) 25 mg injection IV, INTRA-PROCEDURE PRN, Starting on Mon03/26/21 at 1556, Until Mon03/26/21 at 1757, Routine, Anesthesia Intra-op Given 03/26/2021 5:10 PM BRUSH WORKER 7.5 mg Given 03/26/2021 3:56 PM BRUSH WORKER 7.5 mg ketamine (KETALAR) 100 mg/10 mL infusion syringe 0.2 mg/kg/hr ? 75.9 kg Adjusted weight (1.518 mL/hr, rounded to 1.52 mL/hr), IV, CONTINUOUS, Starting on Mon03/26/21 at 0930, Until Mon03/26/21 at 2110, Intra-Procedure New Bag 03/26/2021 12:50 PM BRUSH WORKER 0.132 mg/kg/hr 1 mL/hr ketamine bolus from infusion injection 22.8 mg (rounded from 22.77 mg = 0.3 mg/kg ? 75.9 kg Adjusted weight), IV, INTRA-PROCEDURE ONCE, 1 dose, Starting on Mon03/26/21 at 0923, Until Mon03/26/21 at 1238, Routine, Intra-Procedure Given 03/26/2021 12:38 PM BRUSH WORKER 22.8 mg ketorolac (TORADOL) injection IV, INTRA-PROCEDURE PRN, Starting on Mon03/26/21 at 1630, Until Mon03/26/21 at 1757, Routine, Anesthesia Intra-op Given 03/26/2021 4:48 PM BRUSH WORKER 15 mg lactated ringers infusion IV, at 30 mL/hr, PRE-PROCEDURE CONTINUOUS, Starting on Mon03/26/21 at 1030, Until Mon03/26/21 at 2109, Routine, Pre-op New Bag 03/26/2021 2:37 PM BRUSH WORKER Restarted 03/26/2021 12:28 PM BRUSH WORKER New Bag 03/26/2021 11:09 AM BRUSH WORKER 30 mL/hr lactated ringers infusion IV, INTRA-PROCEDURE CONTINUOUS PRN, Starting on Mon03/26/21 at 1241, Until Mon03/26/21 at 1757, Routine, Anesthesia Intra-op New Bag 03/26/2021 12:41 PM BRUSH WORKER lidocaine 2 % (XYLOCAINE) injection IV, INTRA-PROCEDURE PRN, Starting on Mon03/26/21 at 1238, Until Mon03/26/21 at 1757, Routine, Anesthesia Intra-op Given 03/26/2021 12:38 PM BRUSH WORKER 60 mg midazolam (PF) (VERSED) injection IV, INTRA-PROCEDURE PRN, Starting on Mon03/26/21 at 1228, Until Mon03/26/21 at 1757, Routine, Anesthesia Intra-op Given 03/26/2021 12:28 PM BRUSH WORKER 2 mg neostigmine (PROSTIGIMINE) 5 mg/5 mL (1 mg/mL) injection IV, INTRA-PROCEDURE PRN, Starting on Mon03/26/21 at 1727, Until Mon03/26/21 at 1757, Routine, Anesthesia Intra-op Given 03/26/2021 5:27 PM BRUSH WORKER 5 mg ondansetron (ZOFRAN) 4 mg/2 mL injection IV, INTRA-PROCEDURE PRN, Starting on Mon03/26/21 at 1415, Until Mon03/26/21 at 1757, Routine, Anesthesia Intra-op Given 03/26/2021 4:48 PM BRUSH WORKER 4 mg Given 03/26/2021 2:15 PM BRUSH WORKER 4 mg propofoL (DIPRIVAN) injection IV, INTRA-PROCEDURE PRN, Starting on Mon03/26/21 at 1347, Until Mon03/26/21 at 1757, Anesthesia Intra-op Rate Change 03/26/2021 2:20 PM BRUSH WORKER 50 mcg/kg/min 28.8 mL/hr Given 03/26/2021 1:50 PM BRUSH WORKER 50 mg Given 03/26/2021 1:47 PM BRUSH WORKER 50 mg rocuronium injection IV, INTRA-PROCEDURE PRN, Starting on Mon03/26/21 at 1347, Until Mon03/26/21 at 1757, Routine, Anesthesia Intra-op Given 03/26/2021 5:00 PM BRUSH WORKER 10 mg Given 03/26/2021 3:49 PM BRUSH WORKER 25 mg Given 03/26/2021 2:15 PM BRUSH WORKER 5 mg documented in this encounter Care Teams Customer Support Associate Relationship Specialty Start Date End Date Cornelio Rayo DO [address] [facility] [address] [facility] [address] [place] [id number] PCP - General Internal Medicine 03/08/21 09/11/22 documented as of this encounter
--- OUTSIDE RECORDS SUMMARY | 2024-05-06 09:06 | XMS_ITS | Encounter Summary ---
Author Organization [facility] Address [address] [facility] Attn: Epic Prelude ADT OLLIE HERRMANN [phone] Care Team Providers Care Process Expert Name Role Phone Cornelio Rayo DO Primary Care Provider Encounter Details Date Type Department Care Team (Latest Contact Info) Description 04/09/2021 Travel Social History Tobacco Use Types Packs/Day [...] COVID-19? No / Unsure 04/09/2021 12:31 PM INFORMATION TECHNOLOGY SECURITY ANALYST documented as of this encounter Plan of Treatment Upcoming Encounters Date Type Department Care Team (Late st Contact Info) Description 06/13/2024 10:15 AM INFORMATION TECHNOLOGY SECURITY ANALYST Office Visit [facility] Oncology and Hematology - Neymar [address] [facility] [address] [place] [address] Yosef Salmeron MD [address] [facility] [address] [place] [address] documented as of this encounter Visit Diagnoses Not on filedocumented in this encounter Care Teams Process Expert Relationship Specialty Start Date End Date Cornelio Rayo DO [address] [facility] [address] [facility] [address] [place] [id number] PCP - General Internal Medicine 03/08/21 09/11/22 documented as of this encounter
--- OUTSIDE RECORDS SUMMARY | 2024-05-06 09:06 | XMS_ITS | Encounter Summary ---
Author Organization [facility] TERRY [place] [facility] Address [address] [place] [address] Care Team Providers Care Transport Company Manager Name Role Phone Cornelio Rayo Primary Care Provider [phone] Reason for Referral * Eval and Treat (Routine) - Closed Specialty Diagnoses / Procedures Referred By Contac t Referred To Contact Oncology Diagnoses Malignant neoplasm of transverse colon Yosef Salmeron MD [address] [place] [phone] Referral ID Status Reason Start Date Expiration Date V isits Requested Visits Authorized [id number] Closed [facility] CTS 04/09/2021 04/10/2022 1 1 ALT MACHINE OPERATOR Reason for Visit * Reason Comments Establish Care new patient Encounter Details Date Type Department Care Team (Late st Contact Info) Description 04/09/2021 1:00 PM ASPHALT MACHINE OPERATOR Office Visit [facility] Oncology and Hematology - [facility] [address] [address] Yosef Salmeron MD [address] [place] [address] Malignant neoplasm of transverse colon [...] COVID-19? No / Unsure 04/09/2021 12:31 PM ASPHALT MACHINE OPERATOR documented as of this encounter Last Filed Vital Signs Vital Sign Reading Time Taken Comments Blood Pressure 132/76 04/09/2021 1:10 PM ASPHALT MACHINE OPERATOR Pulse 70 04/09/2021 1:10 PM ASPHALT MACHINE OPERATOR Temperature 36.6 ??C (97.8 ??F) 04/09/2021 1:10 PM CS T Respiratory Rate - - Oxygen Saturation 97% 04/09/2021 1:10 PM ASPHALT MACHINE OPERATOR Inhaled Oxygen Concentration - - Weight 96 kg (211 lb 11.2 oz) 04/09/2021 1:10 PM ASPHALT MACHINE OPERATOR Height 170.2 cm (5' 7 ) 04/09/2021 1:10 PM ASPHALT MACHINE OPERATOR Body Mass Index 33.16 04/09/2021 1:10 PM ASPHALT MACHINE OPERATOR documented in this encounter Progress Notes * Yosef Salmeron MD - 04/09/2021 1:55 PM CST Hematology-oncology consult Note Requesting Physician Katelyn Mckee MD Primary Care Physician Cornelio Rayo, DO Problem list Patient Active Problem List Diagnosis Code ??? Abdominal pain R10.9 ??? Hypokalemia E87.6 ??? Acute colitis K52.9 ??? Colonic mass K63.89 ??? Liver lesion K76.9 ??? 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 Measurable Disease ? Reason for Visit Mary Earl is a 51 y.o. female who was referred for consultation for colon cancer. History of present illness This is a pleasant 51-year-old slightly obese female who has been in good health developed mid abdominal pain for about a month duration with 1 episode of maroon stool prior to his admission to the [facility]. She denies any diarrhea and constipation. She has intentionally lost [id number] pound weight in [address] scan abdomen and pelvis showed segmental colitis of the transverse colon. Patient had colonoscopy done on March 10 that showed fungating partially obstructing mass in the distal transverse colon. Biopsy came back positive for adenocarcinoma of colon. Preop CEA was 2.1. Patient had robotic resection of the splenic flexure colon mass done on March 26, 2021 and pathology came back positive for moderately differentiated adenocarcinoma invading the pericolonic soft tissue with 1 out of 30 lymph nodes positive for malignancy. Margins free of tumor. There was perineural invasion and lymphovascular space invasion found. She has recovered well from the surgery. Past Medical History Past Medical History: Diagnosis Date ??? Difficult intravenous access ??? Malignant tumor of colon ??? Patient denies medical problems ??? Patient denies relevant medical history ??? Post-operative nausea and vomiting Surgical History Past Surgical History: Procedure Laterality Date ??? HX SECTION ??? HX DILATION AND CURETTAGE ??? HX TUBAL LIGATION ??? NE COLONOSCOPY FLX DX W/COLLJ SPEC WHEN PFRMD N/A 03/10/2021 COLONOSCOPY performed by Vikas Fung MD at [facility] ??? NE IV INJ TO TEST BLOOD FLOW IN FLAP/GRAFT 03/26/2021 IV INJECTION OF AGENT FOR VASCULAR FLOW IN FLAP OR GRAFT performed by Katelyn Jack MD at [facility] OR [facility] ??? NE LAP, SURG MOBIL SPLENIC FL DUR PTL COLECTOMY N/A 03/26/2021 SPLENIC FLEXURE MOBILIZATION DAVINCI XI performed by Katelyn Jack MD at [facility] ? ? NE LAP,SURG,COLECTOMY,W/END COLOST & CLOSUR N/A 03/26/2021 DAVINCI SPLENIC FLEXURE RESECTION WITH PRIMARY ANASTOMOSIS performed by Katelyn Jack MD at [facility] Medications Current Outpatient Medications Medication Sig Dispense Refill ??? oxyCODONE (ROXICODONE) 5 mg tablet Take 1 Tablet (5 mg) by mouth every 4 hours as needed for Pain. Max Daily Amount: 30 mg 30 Tablet 0 ??? ondansetron (ZOFRAN ODT) 4 mg Tablet, Rapid Dissolve Take 1 Tablet by mouth every 6 hours as needed for Nausea/Emesis. Dissolve tablet on top of tongue, then swallow with saliva. 24 Tablet 0 No current facility-administered medications for this visit. Allergies Allergies Allergen Reactions ??? Chlorhexidine Hives ??? Sulfa (Sulfonamide Antibiotics) Swelling ??? Unclassified Drug Nausea and Vomiting Pt reports does not tolerate anesthesia and pain medications well. ??? Codeine Nausea and Vomiting ??? Meperidine Nausea and Vomiting Immunizations: There is no immunization history on file for this patient. Family History Family History Problem Relation Name Age of Onset ??? Colon Cancer Neg Hx Social History Social History Tobacco Use ??? Smoking status: Former Smoker Types: Cigarettes Quit date: 2000 Years since quittin.9 ??? Smokeless tobacco: Never Used Substance Use Topics ??? Alcohol use: No Review of Systems Constitutional: No fever; no night sweats; no anorexia; no weight loss; no fatique NEENT: No headache; no change in vision; no change in hearing; no sore throat; no dysphagia Respiratory: No shortness of breath; no pleuritic chest pain; no cough; no hemoptysis Cardiac: No cardiac-like chest pain; no palpitations; no orthopnea; no PND; no RAMEY Breasts: No tenderness; no masses GI: No abdominal pain; no nausea; no vomiting; no diarrhea; no hematochezia; no melena : No dysuria; no frequency; no hesitancy; no hematuria [employer]: Musculosketetal: no bone pain; no arthralgia; no joint swelling; no myalgia; Skin: no pruritis; no rash; no petechiae; no ecchymoses Endocrine: no polydipsia; no polyuria; no unusual weight gain Neuro: No headache; no change in vision; no sensory changes; no muscle weakness; no confusion; no seizures Psych: no anxiety; no depression; Physical Exam Vitals: As per nursing note Constitutional: Well developed, well nourished, no acute distress, non-toxic appearance Teeth and gum. No signs of infection or swelling. Eyes: PERRL, conjunctiva normal HEENT: Atraumatic, external ears normal, nose normal, oropharynx moist, no pharyngeal exudates. no sinus tenderness Neck- normal range of motion, no tenderness, supple Respiratory: No respiratory distress, normal breath sounds, no rales, no wheezing Cardiovascular: Normal rate, normal rhythm, no murmurs, no gallops, no rubs GI: Soft, nondistended, normal bowel sounds, nontender, no splenomegaly, no hepatomegaly, no mass, no rebound, no guarding : No costovertebral angle tenderness Musculoskeletal: No edema, no tenderness, no deformities. Back- no tenderness Integument: Well hydrated, no rash, Digits and nails inspection normal Lymphatic: No lymphadenopathy noted Neurologic: Alert & oriented x 3, CN 2-12 normal, normal motor function, normal sensory function, no focal deficits noted Psychiatric: Speech and behavior appropriate ? labs No results found for this or any previous visit (from the past 24 hour(s)). Pathology ? Imaging & Other Studies Performance Status? ECOG performance status 0 Assessment / Plan: ? T3 N1a M0 stage IIIB adenocarcinoma moderately differentiated invading the pericolonic soft tissue with lymphovascular invasion and perineural invasion. Metastatic carcinoma in 1 out of 33 lymph node. Margins free of tumor. Status post large bowel, splenic flexure resection done on March 26, 2021. Preop CEA was normal at 2.1. CT scan showed no evidence of metastatic disease except 8 mm right middle lobe lung nodule indeterminate. I have discussed the NCCN guidelines for adjuvant chemotherapy. I would recommend chemotherapy with FOLFOX regimen for 12 cycles. I will refer her to Dr. Mckee for Mediport placement. She will see my nursing staff for chemotherapy teaching. I personally discussed the side effect of chemotherapy in detail. Surveillance CT chest will be done in 3 months to reevaluate right middle lobe lung nodule. I have answered all the questions to patient satisfaction. Thank you very much for allowing me to participate in Mary Earl's evaluation and management. Please feel free to contact if I can be of any further assistance in your patient???s care requiring hematology or oncology evaluation. Sincerely, ? ? Yosef Salmeron M.D. cell TOBACCO COUNSELING She is not a tobacco user. Yosef Salmeron MD ,04/09/2021 1:55 PM ? Total time spent 80 minutes, two third of the total time spent counseling patient [id number]. CC:?Katelyn Mckee MD Primary Care Physician Cornelio Rayo DO ALT MACHINE OPERATOR documented in this encounter Plan of Treatment Upcoming Encounters Date Type Department Care Team (Late st Contact Info) Description 06/13/2024 10:15 AM ASPHALT MACHINE OPERATOR Office Visit [facility] Oncology and Hematology [facility] [address] [place] [phone] Yosef Salmeron MD [address] [facility] [address] [place] [address] Scheduled Referrals Name Type Priority Associated Diagnoses Orde r Schedule AMB REFERRAL TO CHEMO TEACHING Outpatient Referral Routine Malignant neoplasm of transverse colon Ordered: 04/09/2021 documented as of this encounter Visit Diagnoses Diagnosis Malignant neoplasm of transverse colon- Primary documented in this encounter Care Teams Transport Company Manager Relationship Specialty Start Date End Date Cornelio Rayo DO [address] [facility] [address] [place] [id number] PCP - General Internal Medicine 03/08/21 09/11/22 documented as of this encounter
--- OUTSIDE RECORDS SUMMARY | 2024-05-06 09:06 | XMS_ITS | Encounter Summary ---
Author Organization [facility] Address [address] [place] [address] Care Team Providers Care Analog Design Engineer Name Role Phone Cornelio Rayo DO Primary Care Provider [phone] Encounter Details Date Type Department Care Team (Latest Contact Info) Description 03/22/2021 10:00 AM EQUIPMENT OR MACHINERY CLEANER - 03/22/2021 11:59 PM [facility] Hospital Encounter [facility] [address] [place] [address] Katelyn Jack MD [address] [facility] [address] [place] [address] Discharge Disposition: Home or Self Care Anesthesia Record Procedure Summary Procedure Name Responsible [...] breathing spont, and VSS. Report given to HOME SCHOOL LIAISON OFFICER including meds, lines, procedure info, and pt. hx. Meds * Agents No agents on file. * Blood No blood administrations on file. [...] COVID-19? No / Unsure 03/22/2021 9:58 AM EQUIPMENT OR MACHINERY CLEANER documented as of this encounter Last Filed Vital Signs Vital Sign Reading Time Taken Comments Blood Pressure 125/80 03/22/2021 10:38 AM EQUIPMENT OR MACHINERY CLEANER Pulse 71 03/22/2021 10:38 AM EQUIPMENT OR MACHINERY CLEANER Temperature - - Respiratory Rate - - Oxygen Saturation 98% 03/22/2021 10:38 AM EQUIPMENT OR MACHINERY CLEANER Inhaled Oxygen Concentration - - Weight 93.9 kg (207 lb) 03/22/2021 10:38 AM EQUIPMENT OR MACHINERY CLEANER Height 172.7 cm (5' 8 ) 03/22/2021 10:38 AM EQUIPMENT OR MACHINERY CLEANER Body Mass Index 31.47 03/22/2021 10:38 AM EQUIPMENT OR MACHINERY CLEANER documented in this encounter Medications at Time [...] 03/11/2021 03/28/2021 documented as of this encounter OR Notes * Anesthesia PAT Evaluation - Nando Baez MD - 03/22/2021 10:00 AM EQUIPMENT OR MACHINERY CLEANER Pre-Procedure Anesthesiology Consultation and Evaluation (PACE) Service 03/22/2021 10:48 AM Name: Mary Earl Age: 51 y.o. Sex: female CSN: [id number] Procedure(s): SIGMOID COLON RESECTION ROBOTIC XI Allergies Allergen Reactions Sulfa (Sulfonamide Antibiotics) Swelling Unclassified Drug Nausea and Vomiting Pt reports does not tolerate anesthesia and pain medications well. Codeine Nausea and Vomiting Meperidine Nausea and Vomiting Pre-Surgery Instructions Medication Instructions neomycin (MYCIFRADIN) 500 mg tablet Continue taking as prescribed metroNIDAZOLE (FLAGYL) 500 mg tablet Continue taking as prescribed polyethylene glycol (MIRALAX) 17 gram Powder in Packet Do not take day of surgery Patient Active Problem List Diagnosis Date Noted Malignant neoplasm of transverse colon Colonic mass Liver lesion Acute colitis Abdominal pain 03/08/2021 Hypokalemia 03/08/2021 Past Medical History: Diagnosis Date Difficult intravenous access Malignant tumor of colon Patient denies medical problems Patient denies relevant medical history Post-operative nausea and vomiting Past Surgical History: Procedure Laterality Date HX SECTION HX DILATION AND CURETTAGE HX TUBAL LIGATION SD COLONOSCOPY FLX DX W/COLLJ SPEC WHEN PFRMD N/A 03/10/2021 COLONOSCOPY performed by Vikas Fung MD at [facility] Social History Tobacco Use Smoking status: Former Smoker Types: Cigarettes Quit date: 2000 Years since quittin.8 Smokeless tobacco: Never Used Substance Use Topics Alcohol use: No Family History Problem Relation Name Age of Onset Colon Cancer Neg Hx Previous Anesthesia Problems/Concerns: Post-operative nausea & vomiting (PONV) and Difficult intravenous access History of PONV Yes Review of Systems Cardiovascular: negative for chest pain, chest pressure/discomfort, exertional chest pressure/discomfort, palpitations, shortness of breath/dyspnea. 3 flight of stairs without SOB/CP Respiratory: Lung nodule. 02/2020 Covid - no hospitalization. Snoring - No, CRISELDA - No Gastrointestinal: negative. Genitourinary:negative. Musculoskeletal: negative Neurological: negative Endocrine negative Oncology: Colon CA 2020 PHYSICAL EXAM BP 125/80 (BP Location: Right [...] equally LABS Lab Results Component Value Date/Time WBC 5.4 03/09/2021 07:34 AM HEMOGLOBIN 11.9 03/09/2021 07:34 AM HEMATOCRIT 37.4 03/09/2021 07:34 AM PLATELETS 198 03/09/2021 07:34 AM MCV 91.4 03/09/2021 07:34 AM Lab Results Component Value Date/Time SODIUM 143 03/09/2021 07:34 AM POTASSIUM 3.8 03/09/2021 07:34 AM CHLORIDE 106 03/09/2021 07:34 AM CO2 23 03/09/2021 07:34 AM CALCIUM 9.0 03/09/2021 07:34 AM BUN 8 03/09/2021 07:34 AM CREATININE 0.62 03/09/2021 07:34 AM GLUCOSE 109 (H) 03/09/2021 07:34 AM ANION GAP 14 03/09/2021 07:34 AM No results found for: INR, PT, PROTIMEPOC No results found for: HCGURPOC, HCGQUALUR, HCGQUAL, HCGQUANT, HCGINTACT EKG: EKG not indicated today Other Studies/Considerations: None Risks/Alternatives discussed. Questions solicited and answered. Yes Postop pain management discussed yes Smoking/Tobacco Counseling: None Recommendations:None ATTESTATIONS (Not in a hospital admission) I obtained, updated or reviewed the patient's current medications including dosage, frequency, and route of administration. This information was obtained directly from the patient or leather goods sales representative or caregiver or another available healthcare resource and updated in [facility] EMR. Social History Tobacco Use Smoking Status Former Smoker Types: Cigarettes Quit date: 2000 Years since quittin.8 Smokeless Tobacco Never Used Patient screened for tobacco use and identified as a Non-User of tobacco. REPORT AND NECESSARY FOLLOW-UP History and physical performed in [facility]; tests (ECG, blood work) reviewed. Abnormal Results Found: no Further Testing or Evaluation Required: no Final [facility] Review: May proceed with procedure/surgery: yes Stop bang score is 1 Based on a STOP-BANG score of 0-2 the patient is deemed low risk for CRISELDA and there is no follow-up,education nor interventions needed. NATE Holguin I, Nando Baez MD, attest that I have reviewed the Advanced Practitioner's note - including the history, documented findings, assessment, and plan. I agree with the plan as documented exceptwhere noted. Nando Baez MD PMENT OR MACHINERY CLEANER * Blanca-OP - Bianca Mandel RN - 03/22/2021 10:00 AM CST Images from the original note were not included. ? [facility] Routine Orders Protocol [facility] Approved by: [facility] - Medical Executive Committee Approval Date: 07/23/2020 ORDERS ARE ENTERED ???PER PROTOCOL?? Enter the protocol in the patient's electronic health record using smart phrase: .paceroutineordersprotocol PACE/Anesthesiology Care Screening for Procedures ??? Laboratory exams obtained within 3 months prior to surgery are acceptable if normal, or at baseline. ??? Hematocrit/Hemoglobin (Gul3587) ??? Cases of expected major blood loss in patients of any age as evidenced by an order for Type andCross or Type and Screen. ??? PT/INR (Lab 320) should be drawn day of surgery ??? Patients taking Warfarin (Coumadin) or who have had Warfarin (Coumadin) discontinued within prior 7 days ??? BMP (Lab15) ??? Patients with: ??? Diabetes ??? Renal disease ??? Dialysis patients: Day of Surgery; If dialysis on day of surgery, Post-dialysis ??? Patients taking the following medications: - Digoxin - Diuretics - Steroids ??? BUN (Kds539)/ Serum Cr (Lab66) ??? When use of intravenous contrast dye is planned ??? Liver function panel (Lab20) in any patient with: ??? Jaundice, or active liver disease ??? HgbA1c: If result not available from within 3 months of PACE phone or in- person contact, for patients that meet the following conditions: ??? Planned operation is an orthopedic or neurosurgical implant, AND ? ? Either a hx of diabetes or a BMI >35 ??? EKG (EKG) 12 lead EKG- obtained within the last 3 months for the following: ??? Known cardiac disease (CAD, CHF, moderate or worse valvular disease ??? Patients undergoing cardiac, thoracic, or vascular surgery ??? CIED ??? Cardiac Symptoms: Angina, dysrhythmia, palpitations, SOB, PND, S3 ??? Moderate or greater risk surgery with any of the following: Stroke/TIA/CVD, PAD/PVD, CKD (Cr>2), DM, or Drugs or toxins that alter conduction (e.g., digoxin, cocaine, MAOIs, antiarrhythmics, antipsychotics, TCAs) Blood Bank ; For surgical procedures, prepare blood per surgical Blood Bank process unless additional blood orblood products have been ordered by the provider, then follow provider order. *Additional testing maybe indicated based upon patient co-morbidities and planned procedure. Medication Orders ??? Unless otherwise ordered by a member of the [facility] An[facility]hes[facility] Staff. 1. STOP a. Seven (7) DAYS PRIOR TO SURGERY: the use of all vitamins, herbal supplements, and other alternative substances. b. Seven (7) DAYS PRIOR TO SURGERY: the use of any UNPRESCRIBED Aspirin, Excedrin and NSAIDs which include Motrin, Ibuprofen, Aleve, and Naprosyn. c. 24 HOURS PRIOR TO PLANNED ARRIVAL AT [facility]: use of angiotensin-converting enzyme (SACHA) inhibitorand angiotensin receptor graciela (ARB). 2. CONTINUE - on usual schedule and take medication day of surgery with sips of water to swallow a. Aspirin and NSAIDS unless specifically instructed by surgeon to discontinue. b. All prescription medicines on routine schedule as prescribed, unless instructed otherwise. PMENT OR MACHINERY CLEANER * Blanca-OP - Bianca Mandel RN - 03/22/2021 10:00 AM CST [facility] Pre-Procedure Instructions [facility]ACE [facility]ACE Name: Mary Earl Age: 51 y.o. Please report to the: [facility] Date of Procedure: 03/26/21 Date of COVID Test: 03/22/21 Arrive at the time your surgeon's office has instructed. You will receive a call from them 2-4 days prior to your surgery with your arrival time. The decision whether to stay overnight or go home will be made by the attending surgeon. PLEASE NOTIFY your surgeon promptly if you begin to feel ill prior to your surgery. A cold, sore throat, fever, flu or covid symptoms may require postponing the surgery to another date for your safety. Please follow these important instructions PRE-PROCEDURE DIETARY INSTRUCTIONS Follow your surgeon's instructions regarding oral intake prior to your scheduled procedure. If no specific instructions were given from your surgeon's office; below are the guidelines from the anesthesia department: Based on your health history and/or scheduled procedure, the following pre- procedure dietary instructions should be followed: Enhanced Recovery After Surgery (ERAS) Please refer to your ERAS booklet for the guidance on your preop diet. THE DAY OF SURGERY: MORNING - Drink the clear carbohydrate beverage as instructed BEFORE leaving your home. DO NOT eat or drink anything after the clear carbohydrate beverage. WITHIN 24 HOURS PRIOR TO SURGERY ?? SHOWER AND SHAMPOO the evening before and morning of surgery. If instructed to do so, please follow the directions on the provided soap or antibacterial soap. ?? DO NOT SHAVE near the surgical area for at least 24 hours prior. ?? After showering the morning of surgery, DO NOT APPLY body lotions, deodorants, colognes, lipstick, make-up, hairspray, mousse, gel, or powder. ?? DO NOT WEAR JEWELRY (rings, earrings, and body piercings), wigs, or hair pieces to the hospital. ?? SMOKING AND USE OF TOBACCO PRODUCTS: We recommend patients abstain from smoking for as long as possible before and after surgery, but even quitting for a brief period is still beneficial. DO NOT SMOKE OR USE TOBACCO PRODUCTS on the day of your procedure. DAY OF SURGERY INSTRUCTIONS ?? YOU WILL NEED A RESPONSIBLE ADULT FAMILY MEMBER OR FRIEND WITH YOU UPON DISCHARGE. YOUR SURGERY MAY BE CANCELLED IF YOU DO NOT HAVE A RESPONSIBLE ADULT TO TAKE YOU HOME. It is highly suggested youhave a responsible adult with you overnight after receiving anesthesia. ?? WEAR comfortable, loose fitting clothes to the hospital that will fit over dressings after your surgery. ?? WEAR GLASSES instead of contact lenses to the hospital; bring a case if possible for glasses, dentures, and hearing aids as you will be asked to remove these items before your surgery. ?? BRING your insurance cards and van driver's license or photo ID. DO NOT BRING VALUABLES or large amounts of page with you to the hospital. ?? BRING any medical devices you need to the hospital, including remotes for stimulators, CPAP, BIPAP, or WOUND VAC machines. ?? Surgical times are estimates and can vary depending on numerous factors. ?? Expect a minimum post-op recovery of 1 hour. The medical staff will provide updates to family and/or friends as appropriate. ?? For surgical procedures, patient may be allowed two adult visitors. Special considerations may be allowed for pediatric patients under the age of 18 years. ?? Patient and any permitted visitor should arrive to the facility with a mask. If arriving to the facility without a mask, one will be provided. Special considerations may be allowed for pediatric patients under 2 years of age. ?? Patient and visitor will go through facility entry screening. ?? Patient will wear a mask from the time they enter the facility and will remain in a mask until they leave the facility. During your hospital stay you will receive a personal passcode to help protect your health information. This will be a number that you may share with anyone you choose to receive your protected health information (PHI). Family and friends will need to ask for you by name and use the passcode beforeyour care team can share information, either in person or by phone. Please ask those who have your passcode to protect it. ADVANCED PLANNING FOR MEDICATION USE CURRENT MEDICATION LIST Pre-Surgery Instructions Medication Instructions ??? neomycin (MYCIFRADIN) 500 mg tablet Continue taking as prescribed ??? metroNIDAZOLE (FLAGYL) 500 mg tablet Continue taking as prescribed ??? polyethylene glycol (MIRALAX) 17 gram Powder in Packet Do not take day of surgery PMENT OR MACHINERY CLEANER documented in this encounter Plan of Treatment Upcoming Encounters Date Type Department Care Team (Late st Contact Info) Description 06/13/2024 10:15 AM EQUIPMENT OR MACHINERY CLEANER Office Visit [facility] Oncology and Hematology - Neymar [address] [facility] [address] [place] [address] Yosef Salmeron MD [address] [facility] [address] [place] [address] documented as of this encounter Procedures Procedure Name Priority Date/Time Associated Diagnosis Comments CBC WITH DIFFERENTIAL Routine 03/22/2021 10:29 AM EQUIPMENT OR MACHINERY CLEANER Acute colitis COMPREHENSIVE METABOLIC PANEL Routine 03/22/2021 10:29 AM EQUIPMENT OR MACHINERY CLEANER Acute colitis TYPE AND SCREEN Routine 03/22/2021 10:24 AM EQUIPMENT OR MACHINERY CLEANER documented in this encounter Results * COMPREHENSIVE METABOLIC PANEL (03/22/2021 10:29 AM EQUIPMENT OR MACHINERY CLEANER) SODIUM 144 136 - 145 mmol/L 03/22/2021 1:04 PM EQUIPMENT OR MACHINERY CLEANER [facility] POTASSIUM 4.2 3.5 - 5.0 mmol/L 03/22/2021 1:04 PM EQUIPMENT OR MACHINERY CLEANER [facility] CHLORIDE 106 98 - 107 mmol/L 03/22/2021 1:04 PM EQUIPMENT OR MACHINERY CLEANER [facility] CO2 27 22 - 29 mmol/L 03/22/2021 1:04 PM EQUIPMENT OR MACHINERY CLEANER [facility] CALCIUM 9.5 8.6 - 10.2 mg/dL 03/22/2021 1:04 PM EQUIPMENT OR MACHINERY CLEANER [facility] BUN 11 6 - 20 mg/dL 03/22/2021 1:04 PM EQUIPMENT OR MACHINERY CLEANER [facility] CREATININE 0.67 0.51 - 0.95 mg/dL 03/22/2021 1:04 PM EQUIPMENT OR MACHINERY CLEANER [facility] GLUCOSE 98 74 - 99 mg/dL 03/22/2021 1:04 PM EQUIPMENT OR MACHINERY CLEANER [facility] TOTAL PROTEIN 7.2 6.7 - 8.6 g/dL 03/22/2021 1:04 PM EQUIPMENT OR MACHINERY CLEANER [facility] ALBUMIN 4.5 3.5 - 5.2 g/dL 03/22/2021 1:04 PM EQUIPMENT OR MACHINERY CLEANER [facility] BILIRUBIN TOTAL 0.3 0.3 - 1.2 mg/dL 03/22/2021 1:04 PM EQUIPMENT OR MACHINERY CLEANER [facility] ALKALINE PHOSPHATASE 78 35 - 104 U/L 03/22/2021 1:04 PM EQUIPMENT OR MACHINERY CLEANER [facility] AST 21 <33 U/L 03/22/2021 1:04 PM [facility] [employer] [facility] ALT 23 <34 U/L 03/22/2021 1:04 PM [facility] GFR >60 mL/min/1.7 3 sq meter 03/22/2021 1:04 PM [facility] Comment: eGFR has not been validated for [...] result. GFR, >60 mL/min/1.7 3 sq meter 03/22/2021 1:04 PM [facility] ANION GAP 11 8 - 16 mmol/L 03/22/2021 1:04 PM [facility] Blood Venipuncture / Unknown 03/22/2021 10:29 AM EQUIPMENT OR MACHINERY CLEANER 03/22/2021 12:19 PM EQUIPMENT OR MACHINERY CLEANER Narrative [facility] - 03/22/2021 1:04 PM EQUIPMENT OR MACHINERY CLEANER Samples containing indocyanine green cause interferences on Total and/or Direct Bilirubin and must not be measured. Katelyn Jack MD CHEMISTRY ORDERABLES [facility] [employer] [facility]# [id number] [address] [facility] [place] [id number] * (ABNORMAL) CBC WITH DIFFERENTIAL (03/22/2021 10:29 AM EQUIPMENT OR MACHINERY CLEANER) WBC 4.3 4.0 - 9.8 K/uL 03/22/2021 12:40 PM [facility] [employer] RBC 4.21 3.90 - 4.90 M/uL 03/22/2021 12:40 PM EQUIPMENT OR MACHINERY CLEANER [facility] HEMOGLOBIN 12.2 11.8 - 14.8 g/dL 03/22/2021 12:40 PM EQUIPMENT OR MACHINERY CLEANER [facility] HEMATOCRIT 39.7 35.5 - 44.0 % 03/22/2021 12:40 PM EQUIPMENT OR MACHINERY CLEANER [facility] MCV 94.3 82.0 - 99.0 fL 03/22/2021 12:40 PM EQUIPMENT OR MACHINERY CLEANER [facility] MCH 29.0 27.2 - 32.6 pg 03/22/2021 12:40 PM EQUIPMENT OR MACHINERY CLEANER [facility] MCHC 30.7(L) 31.5 - 35.5 g/dL 03/22/2021 12:40 PM EQUIPMENT OR MACHINERY CLEANER [facility] RDW 13.6 11.5 - 14.5 % 03/22/2021 12:40 PM EQUIPMENT OR MACHINERY CLEANER [facility] RDW-STDEV 46.5 37.1 - 48.7 fL 03/22/2021 12:40 PM EQUIPMENT OR MACHINERY CLEANER [facility] PLATELETS 247 140 - 350 K/uL 03/22/2021 12:40 PM EQUIPMENT OR MACHINERY CLEANER [facility] MPV 10.5 9.3 - 12.4 fL 03/22/2021 12:40 PM EQUIPMENT OR MACHINERY CLEANER [facility] NEUTROPHILS 50 % 03/22/2021 12:40 PM EQUIPMENT OR MACHINERY CLEANER [facility] LYMPHOCYTES 39 % 03/22/2021 12:40 PM EQUIPMENT OR MACHINERY CLEANER [facility] MONOCYTES 8 % 03/22/2021 12:40 PM EQUIPMENT OR MACHINERY CLEANER [facility] EOSINOPHILS 2 % 03/22/2021 12:40 PM EQUIPMENT OR MACHINERY CLEANER [facility] BASOPHILS 1 % 03/22/2021 12:40 PM EQUIPMENT OR MACHINERY CLEANER [facility] IMMATURE GRANULOCYTES 0 % 03/22/2021 12:40 PM EQUIPMENT OR MACHINERY CLEANER [facility] NEUTROPHIL ABSOLUTE 2.15 1.90 - 7.00 K/uL 03/22/2021 12:40 PM EQUIPMENT OR MACHINERY CLEANER [facility] LYMPHOCYTE ABSOLUTE 1.67 0.70 - 4.50 K/uL 03/22/2021 12:40 PM EQUIPMENT OR MACHINERY CLEANER [facility] MONOCYTE ABSOLUTE 0.32 0.10 - 1.30 K/uL 03/22/2021 12:40 PM EQUIPMENT OR MACHINERY CLEANER [facility] EOSINOPHIL ABSOLUTE 0.08 0.00 - 0.70 K/uL 03/22/2021 12:40 PM EQUIPMENT OR MACHINERY CLEAN[facility] BASOPHILS ABSOLUTE 0.05 0.00 - 0.20 K/uL 03/22/2021 12:40 PM EQUIPMENT OR MACHINERY CLEANER [facility] IMMATURE GRANULOCYTES ABSOLUTE 0.01 0.00 - 0.03 K/uL 03/22/2021 12:40 PM EQUIPMENT OR MACHINERY CLEANER [facility] Blood Venipuncture / Unknown 03/22/2021 10:29 AM EQUIPMENT OR MACHINERY CLEANER 03/22/2021 12:19 PM EQUIPMENT OR MACHINERY CLEANER Katelyn Jack MD HEMATOLOGY ORDERABLE S [facility] - [facility] CLIA# [id number] [address] [place] [address] * TYPE AND SCREEN (03/22/2021 10:24 AM EQUIPMENT OR MACHINERY CLEANER) ABO GROUP A 03/22/2021 1:49 PM EQUIPMENT OR MACHINERY CLEANER [facility] RH (D) TYPE Positive 03/22/2021 1:49 PM EQUIPMENT OR MACHINERY CLEANER [facility] ANTIBODY SCREEN Negative 03/22/2021 1:49 PM EQUIPMENT OR MACHINERY CLEANER [facility] Blood Venipuncture / Unknown 03/22/2021 10:24 AM EQUIPMENT OR MACHINERY CLEANER 03/22/2021 12:19 PM EQUIPMENT OR MACHINERY CLEANER Katelyn Jack MD BLOOD BANK ORDERABLE S [facility] CLIA# [id number] [address] [place] [address] documented in this encounter Visit Diagnoses Diagnosis Acute colitis Other and unspecified noninfectious gastroenteritis and colitis documented in this encounter Care Teams Analog Design Engineer Relationship Specialty Start Date End Date Cornelio Rayo DO [address] [facility] [address] [facility] [address] [place] [address] PCP - General Internal Medicine 03/08/21 09/11/22 documented as of this encounter
--- OUTSIDE RECORDS SUMMARY | 2024-05-06 09:07 | XMS_ITS | Encounter Summary ---
Author Organization [facility] Address [address] [place] [address] Care Team Providers Care Shingle Carrier Name Role Phone Cornelio Rayo DO Primary Care Provider [phone] Reason for Visit * Reason Onset Date Comments Surgery 03/12/2021 Encounter Details Date Type Department Care Team (Late Contact Info) Description 03/12/2021 Telephone [facility] Surgical Spec [place] [address] [facility] [address], [place] [address] Katelyn Jack MD [address] [facility] [address] [place] [address] Surgery Social History Tobacco Use [...] Info) Description 06/13/2024 10:15 AM HEAD OF GEOGRAPHY Office Visit [facility] Oncology and Hematology - Neymar [address] [place] [address] Yosef Salmeron MD [address] [facility] [address] [place] [address] documented as of this encounter Visit Diagnoses Not on filedocumented in this encounter Care Teams Shingle Carrier Relationship Specialty Start Date End Date Cornelio Rayo DO [address] [facility] [address] [place] [address] PCP - General Internal Medicine 03/08/21 09/11/22 documented as of this encounter
--- OUTSIDE RECORDS SUMMARY | 2024-05-06 09:08 | XMS_ITS | Encounter Summary ---
[facility] Address [address] [place] [address] Care Team Providers Care Escalator Installer Name Role Phone Cornelio Rayo DO Primary Care Provider [phone] Reason for Visit * Auth/Cert Specialty Diagnoses / Procedures Referred By Contac t Referred To Contact Emergency Medicine [facility] Emergency Dept [address] [place] [address] Referral ID Status Reason Start Date Expiration Date Visits Re quested Visits Authorized [id number] 1 1 Encounter Details Date Type Department Care Team (Late st Contact Info) Description 03/10/2021 7:44 AM CDT Anesthesia Event [facility] [address] [place] [address] Yadi Pyle MD [address] [place] [id number] Nando Novoa, PADineshC [address] [place] [address] Anesthesia Record Procedure Summary Procedure Name Responsible Anesthesiologist Anesthesia Start Time Anesthesia Stop Time COLONOSCOPY (Anus) Yadi Pyle MD 03/10/21 07 44 03/10/21 0851 Events Date Time Event Comment 03/10/2021 0700 0744 An Start 0745 In Room This event disp lays the In Room time documented in the Surgical Log. Deleting this event will not remove it from the log but will remove it from the Grid and Graph timeline. 0745 An Start Data 0749 Pre-Induction Immediate pre- induction anesthetic assessment performed. Vital signs as noted on graphic. 0751 An Induction 0752 Anesthesia Ready 0753 Procedure Start This event d isplays the Procedure Start time documented in the Surgical Log. Deleting this event will not remove it from the log but will remove it from the Grid and Graph timeline. 0839 Procedure Stop This event di splays the Procedure Stop time documented in the Surgical Log. Deleting this event will not remove it from the log but will remove it from the Grid and Graph timeline. 0840 an stop data 0847 Out of Room This event disp lays the Out of Room time documented in the Surgical Log. Deleting this event will not remove it from the log but will remove it from the Grid and Graph timeline. 0851 An Stop 0851 Hand-off to Receiving Clinic carolyn Post-Anesthetic transfer of care report elements to appropriate post-anesthesia recovery environment completed in accordance with procedure. Meds Name Total lidocaine PF (XYLOCAINE MPF) 20 mg/mL sy ringe 60 mg propofol (DIPRIVAN) 10??mg/mL injection 900 mg lactated ringers infusion 900 mL * Agents Name O2 N2O Inspired N2O O2 * Blood No blood administrations on file. Lines, Drains, and Airways Type Details Placement Removal Peripheral IV Pre-Hospital Start: No; Orientation: Distal, Left, Lower, Posterior; Location: Arm; Device: Angiocath; Gauge: 20 gauge; Needle Length: 1 in length; Insertion Attempts: 1; Patient Tolerance: tolerated well; Removal Indication: site symptomatic; Removal Interventions: pressure dressing, direct pressure, catheter intact 03/09/21 1430 by Candice Anthony RN 03/10/21 1658 by Opal Hernandez RN documented in this encounter Social History [...] PM CDT documented as of this encounter OR Notes * Anesthesia Post-Op Follow-up Note - Italia Cotton RN - 03/11/2021 12:01 PM CDT 03/11/2021 12:01 PM Mary Earl No apparent Anesthesia related complications Italia Cotton RN * Anesthesia Post-Op Follow-up Note - Italia Cotton RN - 03/11/2021 12:01 PM CDT 03/11/2021 12:01 PM Mary Earl No apparent Anesthesia related complications Italia Cotton RN * Anesthesia Postprocedure Evaluation - Xavi Sheriff CRNA - 03/10/2021 8:56 AM CDT Post Anesthesia Evaluation Vitals: Vitals Value Taken Time BP 128/78 03/10/21 0848 Temp 36.4 ??C 03/10/21 0848 Resp 16 03/10/21 0848 SpO2 98 % 03/10/21 0848 Pulse 90 03/10/21 0848 Heart Rate Pain Rating: Pain Rating: Rest: 0 (03/10/21 0400) Pain Rating: Activity: 0 (03/10/21 0400) Anesthesia Post Evaluation Patient location during evaluation: PACU Patient participation: patient was able to participate in the post op evaluation Level of consciousness: 0 = alert, responsive, answers simple questions appropriately, able to perform simple tasks Pain management: satisfactory to patient Airway patency: patent Nausea or Vomiting: none Anesthetic complications: no Cardiovascular status: regular rate and rhythm Respiratory status: no respiratory symptoms Hydration status: well hydrated Xavi Sheriff CRNA * Anesthesia Handoff - Xavi Sheriff CRNA - 03/10/2021 8:48 AM CDT Post-Anesthetic transfer of care report [...] and acknowledgement of understanding. Vital Signs: BP: 128/78 (03/10/2021 8:48 AM) Pulse: 90 (03/10/2021 8:48 AM) Temp: 36.4 ??C (03/10/2021 8:48 AM) Resp: 16 (03/10/2021 8:48 AM) SpO2: 98 % (03/10/2021 8:48 AM) 8:50 AM Xavi Sheriff CRNA * Anesthesia Preprocedure Evaluation - Yadi Pyle MD - 03/10/2021 6:40 AM CDT Relevant Problems No relevant active problems Anesthesia Evaluation Patient summary reviewed and Nursing notes reviewed Airway Mallampati: II TM distance: >3 FB Neck ROM: full Dental - normal exam Pulmonary - negative ROS and normal exam breath sounds clear to auscultation Cardiovascular - negative ROS and normal exam Exercise tolerance: good Rhythm: regular Rate: normal Neuro/Psych - negative ROS GI/Hepatic/Renal - negative ROS Endo/Other - negative ROS Comments: Post-menopausal Abdominal (+) obese (BMI 32), Anesthesia History No history of anesthetic complications. Anesthesia Plan ASA Final: 2 MAC (COVID status unknown. No COVID testing required prior to procedure today per [facility] guidelines.) N/A induction Mask airway maintenance NPO status: NPO >2hrs for clear liquids, >8hrs for solids. Anesthetic plan and risks discussed with Patient. 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 Office Visit [facility] Oncology and Hematology - [place]ym[place] [address] [facility] [address] [place] [address] Yosef Salmeron MD [address] [facility] [address] [place] [address] documented as of this encounter Visit Diagnoses Not on filedocumented in this encounter Administered Medications Inactive Administered Medications - up to 3 most recent administrations Medication Order MAR Action Action Date Dose Rate Site lactated ringers infusion IV, at 125 mL/hr, PRE-PROCEDURE CONTINUOUS, Starting on Mon03/10/21 at 0715, Until Mon03/10/21 at 0926, Routine, Pre-Procedure Restarted 03/10/2021 7:44 AM CDT New Bag 03/10/2021 7:15 AM CDT 125 mL/hr lidocaine (PF) (XYLOCAINE MPF) 60 mg/3 mL (2 %) injection syringe IV, INTRA-PROCEDURE PRN, Starting on Mon03/10/21 at 0751, Until Mon03/10/21 at 0851, Routine, Anesthesia Intra-op Given 03/10/2021 7:51 AM CDT 60 mg propofoL (DIPRIVAN) injection IV, INTRA-PROCEDURE PRN, Starting on Mon03/10/21 at 0751, Until Mon03/10/21 at 0851, Anesthesia Intra-op Given 03/10/2021 8:37 AM CDT 50 mg Given 03/10/2021 8:34 AM CDT 50 mg Given 03/10/2021 8:31 AM CDT 50 mg documented in this encounter Care Teams Escalator Installer Relationship Specialty Start Date End Date Cornelio Rayo DO [address] [place] [address] PCP - General Internal Medicine 03/08/21 09/11/22 documented as of this encounter
--- OUTSIDE RECORDS SUMMARY | 2024-05-06 09:08 | XMS_ITS | Encounter Summary ---
Author Organization [facility] Address [address] [place] [address] Care Team Providers [employer] Librarian Name Role Phone Cornelio Rayo Primary Care Provider [phone] Reason for Visit * Reason Comments Abdominal Pain Pt presents to ED wi th c/o middle abd pain, radiating to L-side, starting on Monday. Pt denies N/V/D. Reports hard stools, states it feels like something is blocked. Denies urinary symptoms. Denies fevers. * Auth/Cert Specialty Diagnoses / Procedures Referred By [place] Referred To Contact Emergency Medicine [facility] Emergency Dept [address] [place] [address] Referral ID Status Reason Start Date Expiration Date Visits Re quested Visits Authorized [id number] 1 1 Encounter Details Date Type Department Care Team (Late st Contact Info) Description 03/10/2021 7:45 AM CDT - 03/10/2021 8:30 AM CDT Surgery [facility] GI Lab [facility] [address] [place] [address] Vikas Fung MD [address] [facility] [address] [place] [address] COLONOSCOPY Surgery Details Date/Time Status Location OR Service Patient Class Case Class Case Type Trauma Case? 03/10/2021 7:45 AM Posted [facility] GI LAB GI 09 Gastroenterology Inpatient Urgent N o Panel 1 Procedure LRB Anes Op Region Wound Class Comments COLONOSCOPY N/A General Anus Surgeon Surgeon Role Service Panel Vikas Fung MD Primary Gastroenterology 1 documented in this encounter Social History [...] Sign Reading Time Taken Comments Blood Pressure 124/95 03/10/2021 7:11 AM CDT Pulse 84 03/10/2021 7:11 AM CDT Temperature 36.6 ??C (97.9 ??F) 03/10/2021 3:25 AM CD T Respiratory Rate 16 03/10/2021 7:11 AM CDT Oxygen Saturation 98% 03/10/2021 7:11 AM CDT Inhaled Oxygen Concentration - - Weight 94.8 kg (209 lb) 03/08/2021 12:36 PM CDT Height 172.7 cm (5' 8 ) 03/08/2021 12:36 PM CDT Body Mass Index 31.78 03/08/2021 12:36 PM CDT documented in this encounter Discharge Summaries * Kanika Aguillon DO - 03/12/2021 7:25 AM CDT [facility] Adult Hospitalist Discharge Summary Mary Earl 51 y.o. female 1970 CSN: [id number] Date of Admission: 03/08/2021 Date of Discharge: 03/11/2021 Discharging Physician: Kanika Aguillon DO LOS: 3 days PCP: Cornelio Rayo DO Activity: activity as tolerated. Dispo: home Diet: Low Fiber Code Status at Discharge: Prior Wound Care: None needed Admitting Dx: Abdominal pain Discharge Diagnoses: Active Hospital Problems Diagnosis ??? Malignant neoplasm of transverse colon ??? Colonic mass ??? Liver lesion ??? Acute colitis ??? Abdominal pain ??? Hypokalemia Resolved Hospital Problems No resolved problems to display. Discharge medications and new prescriptions: Medication List START taking these medications polyethylene glycol 17 gram Powder in Packet Commonly known as: MIRALAX Start with once serving in 8 ounces of water twice daily and titrate for 1-2 soft stools daily. Youmay need to increase dose or frequency or both. Signed by: Dr. Kanika Aguillon, DO Refills: 0 Where to Get Your Medications Please take the prescriptions given to you during your stay and have them filled at any pharmacy. You don't need a prescription for these medications ?? polyethylene glycol 17 gram Powder in Packet Consultants: IP CONSULT TO COLORECTAL SURGERY IP CONSULT TO NUTRITION SERVICES Discharge Lab Data: Lab Results Component Value Date/Time WBC 5.4 03/09/2021 07:34 AM HEMOGLOBIN 11.9 03/09/2021 07:34 AM HEMATOCRIT 37.4 03/09/2021 07:34 AM PLATELETS 198 03/09/2021 07:34 AM SODIUM 143 03/09/2021 07:34 AM CHLORIDE 106 03/09/2021 07:34 AM POTASSIUM 3.8 03/09/2021 07:34 AM CO2 23 03/09/2021 07:34 AM BUN 8 03/09/2021 07:34 AM CREATININE 0.62 03/09/2021 07:34 AM GLUCOSE 109 (H) 03/09/2021 07:34 AM AST 11 03/09/2021 07:34 AM ALT 12 03/09/2021 07:34 AM CRP 9.6 (H) 03/09/2021 07:34 AM Discharge Exam: BP 127/62 (BP Location: Left arm, Patient Position (BP): Sitting) Pulse 73 Temp 98.1 ??F (36.7 ??C) (Oral) Resp 16 Ht 5' 8 (1.727 m) Wt 94.8 kg (209 lb) SpO2 98% BMI 31.78 kg/m?? Physical Exam: General appearance alert, cooperative, no distress, appears stated age Lungs clear to auscultation bilaterally Heart regular rate and rhythm, no murmur Abdomen soft, non-tender. Bowel sounds normal. Extremities extremities normal, atraumatic, no cyanosis or edema Skin Skin color, texture, turgor normal. No rashes or lesions Hospital Course: Mary Earl is a 51-year-old female who was admitted on 03/08 with complaint of abdominal pain. She had no significant past medical history. She underwent CT of abdomen and pelvis in the emergency department which was suspicious for segmental colitis of the transverse colon. She was admitted for further evaluation, given differential diagnosis including ischemic colitis, IBD or infection. GIwas consulted and she underwent colonoscopy on 03/10 which was significant for a fungating partiallyobstructing mass in the distal transverse colon. Biopsy returned adenocarcinoma. Colorectal surgerywas consulted and the patient will undergo partial colectomy in the coming weeks. CT was also suspic ious for a liver lesion, however MRI of the liver was negative for metastasis. CT of the chest showed one 8 mm indeterminate nodule, which will require follow- up. The patient's symptoms had improved by the time of discharge. She was able to tolerate a diet and was having bowel movements. She was discharged in stable condition to continue a low residue (fiber) diet and asked to use MiraLAX to keepstools soft. She is scheduled for robotic partial colectomy on 03/[address] Jack. Nutritional status and in-house recommendations: Current Diet and/or Nutritional Supplementation ordered: Low residue Discharge Condition: stable. Follow-up: Cornelio Rayo DO in 5 days. More than 40 minutes were spent in this discharge activity. Signed: Kanika Aguillon DO 03/12/2021, 7:26 AM documented in this encounter Discharge Instructions * Discharge Instructions* Kanika Aguillon DO - 03/11/2021 4:27 PM CDT Your discharging physician is Kanika Aguillon DO and may be reached at for any questions or concerns until you see your doctor. FOLLOW-UP Follow up with Cornelio Rayo DO in 5 days. Prescriptions given? No Miralax over the counter to keep BM's soft. ACTIVITY Your activity level is: increase activity as tolerated and no smoking. DIET Your diet is: DIET FIBER CONTROL documented in this encounter Medications at Time of Discharge Medication Sig Dispensed Refills Start Date End Date ondansetron (ZOFRAN ODT) 4 mg Tablet, Rapid Dissolve Take 1 Tablet by mouth every 6 hours as needed for Nausea/Emesis. Dissolve tablet on top of tongue, then swallow with saliva. 24 Tablet 03/28/2021 04/22/2021 polyethylene glycol (MIRALAX) 17 gram Powder in Packet Start with once serving in 8 ounces of water twice daily and titrate for 1-2 soft stools daily. You may need to increase dose or frequency or both. 03/11/2021 03/28/2021 documented as of this encounter Progress Notes * Ana Machado RN - 03/11/2021 9:40 PM CDT Mary Earl will be discharged via ambulatory to home. Mary Earl is accompanied by spouse and will be transported via private vehicle. * Katelyn Jack MD - 03/11/2021 8:10 PM CDT Reviewed pathology with the patient. CT chest showed a small indeterminate nodule. MRI liver showedno metastatic disease. She feels much better than on arrival. Passing stools. We discussed recommendation of daVinci segmental colectomy. The risks, benefits, and possible complications of the proposed procedure were discussed with the patient to include bleeding, pain, infection, damage to local structures, need for further treatments, anastomotic leak, anastomotic stricture, damage to pelvic nerves, hernia, conversion to open procedure, alteration in bowel habits, recurrence, and perianesthetic complications. She understands and agrees to proceed. Her was present for the discussion. All questions answered. She has her ERAS information and her surgery date and will see the [facility] prior to surgery. * Vikas Fung MD - 03/11/2021 12:31 PM CDT Path returns adenocarcinoma. Reviewed with patient. * Vikas Fung MD - 03/11/2021 10:48 AM CDT INPATIENT GI PROGRESS NOTE Mary Earl 1970 03/11/2021 10:48 AM Pt being seen for: s/p colonoscopy HPI Mary is hopeful to go home today. Reported she passed some yellow stool that contained maroon colored blood. ROS: General: No fever. Slept well Pulm: No SOB Cardiac: No CP GI: No N/V, abd pain. Feels a little bloated. : No irritative voiding symptoms PE: BP 118/72 (BP Location: Right arm, Patient Position (BP): Supine) Pulse 65 Temp 97.6 ??F (36.4 ??C) (Oral) Resp 16 Ht 5' 8 (1.727 m) Wt 94.8 kg (209 lb) SpO2 100% BMI 31.78 kg/m?? Body mass index is 31.78 kg/m??. General: WD female. In NAD. Skin: No jaundice. Dry and WTT. Affect: Pleasant. Appropriate. Lungs: Normal effort. Clear Cardiovascular: S1S2. Regular Abdomen: Protuberant, +BS, soft, NTTP Extremities: No edema Intake/Output Summary (Last 24 hours) at 03/11/2021 1048 Last data filed at 03/11/2021 0931 Gross per 24 hour Intake 1800 ml Output 2800 ml Net -1000 ml BP 118/72 (BP Location: Right arm, Patient Position (BP): Supine) Pulse 65 Temp 97.6 ??F (36.4 ??C) (Oral) Resp 16 Ht 5' 8 (1.727 m) Wt 94.8 kg (209 lb) SpO2 100% BMI 31.78 kg/m?? Labs/Imaging: Lab Results Component Value Date/Time WBC 5.4 [...] AM GLUCOSE 109 (H) 03/09/2021 07:34 AM TOTAL PROTEIN 6.5 (L) 03/09/2021 07:34 AM ALBUMIN 4.4 03/09/2021 07:34 AM BILIRUBIN TOTAL 0.5 03/09/2021 07:34 AM ALKALINE PHOSPHATASE 87 03/09/2021 07:34 AM AST 11 03/09/2021 07:34 AM ALT 12 03/09/2021 07:34 AM ANION GAP 14 03/09/2021 07:34 AM Impression/Plan # S/P colonoscopy with fungating and partially obstructing mass in the distal transverse colon. Path pending. CEA normal. MRI of liver without mets. Chest CT with 8mm indeterminate RML nodule. Appreciate CRS input. Pt aware this is considered malignancy until proven otherwise and we will have further recs once wehave colon bx and surgical path results. She is aware oncologist may need to get involved and they would have further treatment plan as/if indicated. No GI objection to DC home. Pt is aware we will get a hold of her once path known. D/W Dr. Antonieta Soto, PA-C [facility] Gastroenterology I can be reached thru secure chat or by calling the office at [phone] I have personally seen and examined the patient. I have reviewed the note as entered and agree withthe assessment and plan with any exceptions, if any, as noted. I also performed the critical or keyportion(s) of the service as documented, and was directly involved in the management of the patientand supervised the care provided. Case discussed with Ms. Soto, patient and daughter. No current symptoms. Abdomen benign. Will follow up with patient with biopsy results. Reviewed CT and MRI findings. Discussed follow up for surgery as planned and eventually with oncology. Reviewed family risks and recommendations for early screening and enhanced surveillance. No need for antibiotics from GI standpoint. Please call if questions arise. * Kanika Aguillon DO - 03/10/2021 11:45 AM CDT [facility] Adult Hospitalist Progress Note Admit Date: 03/08/2021 Date of Note: 03/10/2021, 11:46 AM LOS: 2 days Previous history of present illness and review of systems have been reviewed today as documented inthe H&P on 03/08/2021; medications, labs, studies, notes, orders and consults have been reviewed. I have reviewed the notes from admission. Subjective: Feeling groggy after colonoscopy and worried about findings. She and her have many questions regarding next steps in evaluating the mass that was found. Objective: BP (!) 146/95 (BP Location: Right arm, Patient Position (BP): Sitting) Pulse 67 Temp 97.8 ??F (36.6 ??C) (Oral) Resp 16 Ht 5' 8 (1.727 m) Wt 94.8 kg (209 lb) SpO2 100% BMI 31.78 kg/m??Temp (24hrs), Av.5 ??F (36.4 ??C), Min:96.5 ??F (35.8 ??C), Max:98 ??F (36.7 ??C) Moderate amount stool (03/10/21 0325) Exam: General: Alert, no distress. Heart: Regular rate and rhythm, no murmur Lungs: Clear to auscultation bilaterally Abdomen: Soft, non-tender. Bowel sounds present Extremities: No clubbing, cyanosis or edema Skin: Skin color, texture, turgor normal. No rashes or lesions. Warm and dry. Head: Normocephalic, atraumatic Neuro: Nonfocal Data Base: I have reviewed all new labs and studies resulted and pertinent ones are noted below. Assessment/Plan: Principal Problem: Abdominal pain Active Problems: Hypokalemia Acute colitis Colonic mass Colon Mass -Patient presented with abdominal pain with eating, CT was concerning for segmental colitis of the transverse colon, C-scope showed mass -CRS consulted and recommending partial colon resection in the coming weeks -GI recommending CEA, CT chest and MRI liver to further evaluate -awaiting biopsy results -Clear liquid diet (unless need NPO for MRI) -Continue Cipro and Flagyl for now Liver lesion -concern for relation to colon mass - MRI ordered Nutrition: Current Diet and/or Nutritional Supplementation ordered: DIET NPO Sips w/Meds, DVT Prophylaxis - Enoxaparin Cook catheter:absent Lines: Peripheral IV PT POC OT POC Activity Order: Present Activity: in bed;turned (03/10/21 0500) Current Code Status -Full Code Plan discussed with patient and spouse, questions answered. Current Planned Disposition -Home, pending clinical course, suspect 24 to 48 hours. Kainka Aguillon DO * Biju Owens, Student Nurse - 03/10/2021 5:36 AM CDT SM is A&Ox4 and independent with stable VS and is afebrile. On IV abx and completed bowel prep for colonoscopy scheduled for 03/10 - tolerated well. GI patho. PCR negative for infection. Adequate UOP On continuous NS for dehydration prophylaxis d/t bowel prep. Pain score of 0/10 reported throughout the shift - no PRNs requested this shift. * Kanika Aguillon DO - 03/09/2021 1:00 PM CDT [facility] Adult Hospitalist Progress Note Admit Date: 03/08/2021 Date of Note: 03/09/2021, 1:00 PM LOS: 1 day Previous history of present illness and review of systems have been reviewed today as documented inthe H&P on 03/08/2021; medications, labs, studies, notes, orders and consults have been reviewed. I have reviewed the notes from admission. Subjective: Patient feeling well this morning, asymptomatic but afraid to eat. Objective: BP 131/78 (BP Location: Right arm, Patient Position (BP): Supine) Pulse 72 Temp 97.2 ??F (36.2 ??C) (Oral) Resp 18 Ht 5' 8 (1.727 m) Wt 94.8 kg (209 lb) SpO2 98% BMI 31.78 kg/m?? Temp (24hrs), Av.5 ??F (36.4 ??C), Min:97.2 ??F (36.2 ??C), Max:97.8 ??F (36.6 ??C) Small amount stool (03/09/21 0702) Exam: General: Alert, no distress. Heart: Regular rate and rhythm, no murmur Lungs: Clear to auscultation bilaterally Abdomen: Soft, non-tender. Bowel sounds present Extremities: No clubbing, cyanosis or edema Skin: Skin color, texture, turgor normal. No rashes or lesions. Warm and dry. Head: Normocephalic, atraumatic Neuro: Nonfocal Data Base: I have reviewed all new labs and studies resulted and pertinent ones are noted below. CRP 9.6 Liver enzymes are not elevated Assessment/Plan: Principal Problem: Abdominal pain Active Problems: Hypokalemia Recurrent abdominal pain -CT was concerning for segmental colitis of the transverse colon -GI was consulted -Differential includes ischemic colitis, IBD, infection -her history is not consistent with ischemic colitis, she has no family history or other risk factors for IBD -CRP is unremarkable, GI pathogen panel is pending -GI is considering colonoscopy during this admission -Clear liquid diet for now, n.p.o. midnight -Continue Cipro and Flagyl Liver lesion -We will need MRI to follow-up -Liver enzymes are not elevated Nutrition: Current Diet and/or Nutritional Supplementation ordered: DIET CLEAR LIQUID DIET NPO Sips w/Meds, DVT Prophylaxis - Enoxaparin Cook catheter:absent Lines: Peripheral IV PT POC OT POC Activity Order: Current Code Status -Full Code Plan discussed with patient and daughter, questions answered. Current Planned Disposition -Home, pending clinical course, suspect 24 to 48 hours. Kanika Aguillon DO documented in this encounter H&P Notes * Vikas Fung MD - 03/10/2021 7:49 AM CDT PRE PROCEDURE EVALUATION - Colonoscopy DATE: 03/10/2021 HPI: This is a 51 y.o. female patient scheduled for Colonoscopy for abnormal CT colon. Patient Active Problem List Diagnosis Date Noted ??? Acute colitis ??? Abdominal pain 03/08/2021 ??? Hypokalemia 03/08/2021 Past Medical History: Diagnosis Date ??? Patient denies medical problems ??? Patient denies relevant medical history Past Surgical History: Procedure Laterality Date ??? HX SECTION ??? HX DILATION AND CURETTAGE ??? HX TUBAL LIGATION No medications prior to admission. Allergies Allergen Reactions ??? Sulfa (Sulfonamide Antibiotics) Swelling ??? Unclassified Drug Nausea and Vomiting Pt reports does not tolerate anesthesia and pain medications well. Social History Tobacco Use ??? Smoking status: Never Smoker [...] mentioned procedure(s) as scheduled. Vikas Fung MD * Nando Rios NP - 03/08/2021 7:08 PM CDT [facility] Adult Hospitalist Admission H & P Patient Name: Mary Earl Primary Care Doctor: Cornelio Rayo DO Chief Complaint: Abdominal Pain HPI: Patient is a 51 y.o. female with no significant past medical history presents emergency department today complaining of left lower quadrant abdominal for the past 3 days. Patient notes that approximately 1 month ago she had similar episode of left lower quadrant pain which lasted for approximately 3 days for which she was not seen or evaluated. She describes her symptoms as burning/pressure sensation for which she notes occurs sometimes after eating but is not consistent with any dietary changes. She notes that she has not experienced this prior to 1 month ago. Patient reports that after experiencing similar symptoms of her the second consecutive month she felt that she should come to the emergency department for further work-up and evaluation. Patient was seen today in the emergency department and underwent a CT abdomen and pelvis which was remarkable for segmental colitis of the transverse colon. Given the length of involvement differential includes ischemic colitis. Patient's lab work was obtained which is otherwise unremarkable. She will be admitted to hospital service for further treatment. Patient is seen today lying in bed in no apparent distress. She denies any chest pain or shortness of breath. She denies any nausea/vomiting/diarrhea. She reports her last bowel movement was earlier today but notes that it is more formed/hard than usual. She notes that her abdominal pain worsens after eating but that she has tried several dietary changes without any improvement in her symptoms. She denies any black or bloody stools. She denies any new medications. She has no other complaints atthis time. Plan of care reviewed with patient and her who is at bedside and they are both agreeable. All questions and concerns were addressed at this time. Past Medical History: Diagnosis Date ??? Patient denies medical problems ??? Patient denies relevant medical history Past Surgical History: Procedure Laterality Date ??? HX SECTION ??? HX DILATION AND CURETTAGE ??? HX TUBAL LIGATION Current Medications: No outpatient medications have been marked as taking for the 03/08/21 encounter (Hospital Encounter). Allergies Allergen Reactions ??? Sulfa (Sulfonamide Antibiotics) Swelling ??? Unclassified Drug Nausea and Vomiting Pt reports does not tolerate anesthesia and pain medications well. No family history on file. Social History: Social History Tobacco Use ??? Smoking status: Never Smoker ??? Smokeless tobacco: Never Used Substance Use Topics ??? Alcohol use: No Review of Systems General: patient denies any weakness, fatigue, fever, chills or night sweats Hematopoetic: patient denies any anemia, bleeding or easy brusibility HOUSEMAID: patient denies any headache syncope or seizures Eye: patient denies any visual changes, diploplia, no glasses Ears: patient denies any hearing loss, pain, vertigo, tinnitus Nose and throat: patient denies any congestion, postnasal drip, sore throat, epistaxis. Cardiovascular: Patient denies chest pain, edema or palpitations Respiratory: patient denies any shortness of breath, cough sputum production GI: patient reports LLQ abdominal pain. denies any nausea, vomiting, diarrhea, constipation. : Pt denies any dysuria, frequency, urgency or hematuria Muskuloskeletal: patient denies any joint pain, swelling, weakness Integumentary: patient denies any rash, lesions, or itching Endocrine: patient denies ploydipsia, polyphasia or nervousness. Psychiatric: patient denies depression, anxiety, suicidal or homicidal ideations. Physical Exam: Vitals: BP (!) 157/116 (BP Location: Right arm, Patient Position (BP): Sitting) Pulse 85 Temp 98.3 ??F (36.8 ??C) (Oral) Resp 18 Ht 5' 8 (1.727 m) Wt 94.8 kg (209 lb) SpO2 100% BMI 31.78 kg/m?? General:well appearing adult female Head: normocephalic, atraumatic Eyes: pupils PERRL, EOMs intact, sclera non icteric Nares: clear, no exudate Oropharynx: clear, mucous membranes pink and moist Neck: supple, trachea midline, no JVD, no lymphadenopathy Heart: S1 S2 RRR, no murmur, rub or gallop Lungs: clear to auscultation bilaterally, respirations even non labored, no accessory muscle use Abdomen: soft, non tender, no hepatomegaly, no splenomegaly, no bruit, bowel sounds present Extremities: no clubbing, cyanosis or edema, 2+ bilateral radial pulses, 2+ bilateral DP pulses Skin: pink, warm and dry, no rash or lesions noted Neuro: pt alert and oriented x 3, CN II-XII grossly intact non focal, mood appropriate. Data Base: Results for orders placed or performed during the hospital encounter of 03/08/21 (from the past 24 hour(s)) CBC WITH DIFFERENTIAL Result Value Ref Range WBC 7.1 4.0 - 9.8 K/uL RBC 4.99 (H) 3.90 - 4.90 M/uL HEMOGLOBIN 14.8 11.8 - 14.8 g/dL HEMATOCRIT 45.6 (H) 35.5 - 44.0 % MCV 91.4 82.0 - 99.0 fL MCH 29.7 27.2 - 32.6 pg MCHC 32.5 31.5 - 35.5 g/dL RDW 13.1 11.5 - 14.5 % RDW-STDEV 44.0 37.1 - 48.7 fL PLATELETS 328 140 - 350 K/uL MPV 10.9 9.3 - 12.4 fL NEUTROPHILS 61 % LYMPHOCYTES 31 % MONOCYTES 6 % EOSINOPHILS 0 % BASOPHILS 1 % IMMATURE GRANULOCYTES 0 % NEUTROPHIL ABSOLUTE 4.32 1.90 - 7.00 K/uL LYMPHOCYTE ABSOLUTE 2.21 0.70 - 4.50 K/uL MONOCYTE ABSOLUTE 0.44 0.10 - 1.30 K/uL EOSINOPHIL ABSOLUTE 0.03 0.00 - 0.70 K/uL BASOPHILS ABSOLUTE 0.04 0.00 - 0.20 K/uL IMMATURE GRANULOCYTES ABSOLUTE 0.01 0.00 - 0.03 K/uL COMPREHENSIVE METABOLIC PANEL Result Value Ref Range SODIUM 138 136 - 145 mmol/L POTASSIUM CHLORIDE 101 98 - 107 mmol/L CO2 22 22 - 29 mmol/L CALCIUM 9.8 8.6 - 10.2 mg/dL BUN 8 6 - 20 mg/dL CREATININE 0.65 0.51 - 0.95 mg/dL GLUCOSE 111 (H) 74 - 99 mg/dL TOTAL PROTEIN 8.4 6.7 - 8.6 g/dL ALBUMIN 4.6 3.5 - 5.2 g/dL BILIRUBIN TOTAL 0.6 0.3 - 1.2 mg/dL ALKALINE PHOSPHATASE AST 42 (H) <33 U/L ALT 16 <34 U/L GFR >60 mL/min/1.73 sq meter GFR, >60 mL/min/1.73 sq meter ANION GAP 15 8 - 16 mmol/L LIPASE Result Value Ref Range LIPASE 23 13 - 60 U/L URINALYSIS WITH REFLEX MICROSCOPIC Result Value Ref Range COLOR UA Yellow Pale to Dark Yellow CLARITY UA Clear Clear SPECIFIC GRAVITY UA 1.013 1.003 - 1.035 PH UA 5.0 5.0 - 8.0 LEUKOCYTE ESTERASE UA Negative Negative NITRITE UA Negative Negative PROTEIN UA Negative Negative GLUCOSE UA Negative Negative KETONES UA Trace (A) Negative UROBILINOGEN UA Normal <2.0 mg/dL BILIRUBIN UA Negative Negative BLOOD UA 1+ (A) Negative WBC UA 0-2 0 - 2 /hpf RBC UA 0-2 0 - 2 /hpf BACTERIA UA Negative Negative /hpf EPITHELIAL CELLS, URINE 11-25 (A) 0 - 5 /hpf POC ELECTROLYTES/BMP Result Value Ref Range POC POTASSIUM 3.2 (L) 3.5 - 4.9 mmol/L COMMENT, BMP POC RN/MD NOTIFIED LOADING DOCK HAND NAME Tatyana Jacobson CT abd/pelvis: IMPRESSION: Segmental colitis of the transverse colon. Given the length of involvement, consider ischemic colitis. Lobulated low-attenuation in hepatic segment IVb is likely focal fat. Recommend MRI to confirm. Assessment and Plan: Abdominal pain- Denies diarrhea/N/V. CT as above, concerning for ischemic colitis. no leukocytosis.ddx includes persistent colitis vs IBD vs infection vs diverticulitis -continue Cipro/Flagyl -GI consult -Clear liquid diet, NPO at midnight Hypokalemia-will replete Nutrition: Current Diet and/or Nutritional Supplementation ordered: DIET CLEAR LIQUID DIET NPO Strict Code status: Full Cook-none Lines-peripheral DVT PPX: Lovenox PT/OT:none Spoke to: patient and , questions answered. Disposition: The pt normally lives at home. I anticipate the pt will be hospitalized for 2 days pending workup. At discharge the patient will likely return home. I have discussed this with the patient and family in attendance. This patient was discussed with Dr. Ross and he agrees with the above plan. Terry Rios [facility] Contact me via secure chat Associated attestation - Sam Ross MD - 03/09/2021 10:02 AM CDT [facility] Adult Hospitalist Attending Note Patient seen and examined on 03/08/2021. Case discussed with the Nurse Practitioner, Nando Riso. I have reviewed the note as entered and agree with the assessment and plan with any exceptions, if any, noted below. I also performed the critical or carroll portion(s) of the service as documented below, and was directly involved in the management of the patient. Exam: Female patient, alert; she is lying in bed in no apparent distress. Vital signs reviewed, stable. Chest: Clear to auscultation. CV: Heart sounds S1 and S2 are regular; no significant murmur. Abd: Full. Mildly tender centrally; no rebound tenderness or guarding. No organomegaly or palpable masses. Ext: No edema. Data Review: I have reviewed today's labs and imaging studies. Assessment/Plan: 1. Abdominal pain, recurrent - CT scan concerning for segmental colitis of the transverse colon; differentials include ischemic colitis and infectious colitis. - We will begin empiric IV Ciprofloxacin and Metronidazole. - We will continue IVF and as-needed analgesics. - She has been placed on a clear liquid diet. - We will schedule a CTA of the abdomen and pelvis. - A GI consultation has been requested. 2. Hypokalemia, mild - Oral potassium ordered. Approximately 35 minutes were spent in the care of this patient today; this may include family conference, nursing conference and discussion with any consultants. Sam Ross MD [place] [facility]ist documented in this encounter Procedure Notes * Vikas Fung MD - 03/10/2021 9:05 AM CDTAssociated Order(s): COLONOSCOPY REPORT [facility] Endoscopy Patient Name: Mary Earl Procedure Date: 03/10/2021 Date of : 1970 Attending MD: Vikas Fung MD Procedure: Colonoscopy Indications: Abnormal CT of the GI tract Providers: Vikas Fung MD Referring MD: Cornelio Rayo MD Medicines: Monitored Anesthesia Care Complications: No immediate complications. Procedure: Informed consent was obtained for the procedure, including moderate sedation after risks were discussed. Based on the pre-procedure assessment, including review of the patient's medical history, medications, allergies, and review of systems, the patient was deemed to be an appropriate candidate for sedation. A timeout was performed. Continuous ECG monitoring, pulse oximetry, blood pressure monitoring, and direct observation were performed. The scope was introduced through the anus with the intention of advancing to the ileum. The scope was advanced to the transverse colon before the procedure was aborted. Medications were given. The quality of the bowel preparation was excellent. Estimated Blood Loss: Estimated blood loss: none. Findings: A fungating partially obstructing mass was found in the distal transverse colon. The mass was circumferential. The mass measured three cm in length. No bleeding was present. Biopsies were taken with a cold forceps for histology. Area was tattooed with an injection of Spot (carbon black). The mass could not be traversed with the colonoscope. An upper endoscope was utilized to traverse the stricture, but could not be advanced more than a few centimeters beyond the stricture due to looping. A pediatric colonoscope could not traverse the stricture. The exam was otherwise normal throughout the examined colon. 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 Biopsied. Tattooed. Recommendation: - Await pathology results. - CEA. - MRI liver. - CT chest. - Consider significance right adnexal cyst. - Colorectal surgery consult. Inpatient vs outpatient. - Will need completion colonoscopy after surgery to excluded more proximal lesions. - If colon cancer is confirmed, first degree relatives such as children, siblings and parents should begin colon cancer screening at age 40 and repeat every 5 years unless further individual or family history suggests shorter intervals. Vikas Fung MD 03/10/2021 9:05:12 AM This report has been signed electronically. Number of Addenda: [phone]; [place] [address] documented in this encounter Consult Notes * Saritha Ballesteros RD - 03/11/2021 9:45 AM CDTAssociated Order(s): IP CONSULT TO NUTRITION SERVICES CLINICAL DIETITIAN PROGRESS NOTE [facility] Nutrition Note 51 y.o. female with no significant past medical history, who presents to the Emergency Department with complaints of 2 episodes of abdominal pain. ??1 month ago, patient reports that she had an episode of abdominal pain located in her epigastric region and LUQ. She describes it as a burning sensation. Then yesterday, patient had another episodeof the same pain, but she states this episode was significantly worse with associated nausea. ??Patient also complains of having bowel movements with hard stool recently and then yesterday noticed that her stool was maroon colored Assessment: No new labs Skin intact Devonte Score: 22 (03/10/211999) Anthropometrics: Height: 5' 8 (172.7 cm) (03/08/21 1236) Weight: 94.8 kg (209 lb) (03/08/21 1236) Body mass index is 31.78 kg/m??. Last Bowel Movement (mm/dd/yyyy): 03/10/21 (03/10/211999) Nutrition Prescription: DIET CLEAR LIQUID Intake Points: 40 points (03/10/211999) Food/Meal: Dinner (03/10/211999) Diet/Feeding Tolerance: eating normally (03/10/211999) Nutrition intake is meeting less than 50% of needs D: Same/ Increased nutrient needs I:Nutrition Intervention: DIET CLEAR LIQUID Spoke with Mary and , she is day # 4 npo/clear liquids, newly found colon mass, awaiting path, surgery on board. She says she tried to lose weight over past yr, already lost 50# and still has more to go. Plan is to go home on low fiber/low residue diet and follow up with surgeon. Instructed patent and on diet and provided with written materials. Encouraged to call if questions arise Follow M/E: 2. Continue to monitor: 3. Follow up every 4-5 days * Katelyn Jack MD - 03/10/2021 9:53 AM CDTAssociated Order(s): IP CONSULT TO COLORECTAL SURGERY Colorectal Surgery Consult Subjective: Patient is a 51 y.o. female who I was asked to see by Kanika Aguillon,* for colon mass. Mary Earl came to the ER 2d ago with episodic abdominal pain after eating, located [...] the length of involvement, consider ischemic colitis. Lobulated low-attenuation in hepatic segment IVb is likely focal fat. Recommend MRI to confirm. This was followed by a [employer] to r/o ischemia: No evidence to suggest hemodynamic compromise to the bowel as described above. Right adnexal cyst. If clinically indicated further evaluation with ultrasound may be beneficial. She had a colonoscopy today by Dr. Fung: A fungating partially obstructing mass was found in the distal transverse colon. The mass was circumferential. The mass measured three cm in length. No bleeding was present. Biopsies were taken with a cold forceps for histology. Area was tattooed with an injection of Spot (carbon black). The mass could not be traversed with the colonoscope. An upper endoscope was utilized to traverse the stricture, but could not be advanced more than a few centimeters beyond the stricture due to looping. A pediatric colonoscope could not traverse the stricture. The exam was otherwise normal throughout the examined colon. CEA pending. MRI liver to evaluate the finding seen on CT pending. CT chest for staging pending. Pathology pending. Prior to this scope she had never had a previous one. No family hx of colon cancer or IBD. Hx of x 2. Patient Active Problem List Diagnosis Date Noted ??? Acute colitis ??? Abdominal pain 03/08/2021 ??? Hypokalemia 03/08/2021 Past Medical History: Diagnosis Date ??? Patient denies medical problems ??? Patient denies relevant medical history Past Surgical History: Procedure Laterality Date ??? HX SECTION ??? HX DILATION AND CURETTAGE ??? HX TUBAL LIGATION No medications prior to admission. Allergies Allergen Reactions ??? Sulfa (Sulfonamide Antibiotics) Swelling ??? Unclassified Drug Nausea and Vomiting Pt reports does not tolerate anesthesia and pain medications well. Social History Tobacco Use ??? Smoking status: Never Smoker ??? Smokeless tobacco: Never Used Substance Use Topics ??? Alcohol use: No Family History Problem Relation Name Age of Onset ??? Colon Cancer Neg Hx Objective: Patient Vitals for the past 8 hrs: BP Temp Temp src Pulse Resp SpO2 03/10/21 0929 (!) 146/95 97.8 ??F (36.6 ??C) Oral 67 16 100 % 03/10/21 0909 (!) 142/85 -- -- 74 16 100 % 03/10/21 0905 124/81 -- -- 66 16 100 % 03/10/21 0900 131/72 -- -- 71 16 98 % 03/10/21 0853 139/80 -- -- 83 16 98 % 03/10/21 0848 128/78 97.5 ??F (36.4 ??C) Temporal 90 16 98 % 03/10/21 0711 (!) 124/95 -- -- 84 16 98 % 03/10/21 0325 107/58 97.9 ??F (36.6 ??C) Oral 77 14 98 % Gen: NAD. Alert, oriented x3. Lungs: normal respiratory effort Heart: regular rate and rhythm Abdomen: Soft, non-tender. Bowel sounds normal. No masses, no organomegaly. Overweight. Extremities: extremities normal, atraumatic, no cyanosis or edema, moves all extremities equally, normal strength, normal tone Rectum: deferred. Results for orders placed or performed during the hospital encounter of 03/08/21 (from the past 24 hour(s)) GI PATHOGEN PCR PANEL Specimen: Stool Result Value Ref Range GI Pathogen PCR panel No nucleic acids detected. No nucleic acids detected. Assessment: Principal Problem: Abdominal pain Active Problems: Hypokalemia Acute colitis Distal transverse colon mass, likely causing intermittent partial obstruction but not complete obstruction. Plan: Await pathology and further staging evaluation. Will need segmental colon resection. Will d/w the OR scheduling to see if we can arrange robotic time in the next couple of weeks. If timely robotic access is not available I will do the case laparoscopically. The risks, benefits, and possible complications of the proposed procedure were discussed with the patient to include bleeding, pain, infection, damage to local structures, need for further treatments, anastomotic leak, anastomotic stricture, damage to pelvic nerves, hernia, conversion to open procedure, alteration in bowel habits, recurrence, and perianesthetic complications. She understands and agrees to proceed. All questions were answered. Ok for clear liquids today from my standpoint if ok with medicine's needs for other studies. * Vikas Fung MD - 03/09/2021 9:56 AM CDT Inpatient Gastroenterology Consultation Note Patient: Mary Earl / 51 y.o. / female : 1970 Date: 03/09/2021 CSN: [id number] Referring Physician: Nando Rios NP PCP: Cornelio Rayo DO Reason for Consult: History of Present Illness: Mary Earl is a 51 y.o. female admitted with LUQ/LLQ abd pain, worse when eating, since February 08, waxing and waning associated with change in stool caliber, consistency and frequency. She usually has several looser stools daily, now passing one very small stool, soft and without blood or melena, more pencil like. There is no personal or family history of IBD, colon or other gi malignancy.She denies fever, chills, nausea or vomiting but has anorexia and food aversion due to fear of painwith eating. No use of BCP or hormone replacement with smoking. No home meds. No nsaids or blood thinners. No prior egd or colonoscopy. No recent travel, known exposures. Had trip to a cabin in [facility] in January. No diarrhea following that trip. Allergies Allergen Reactions ??? Sulfa (Sulfonamide Antibiotics) Swelling ??? Unclassified Drug Nausea and Vomiting Pt reports does not tolerate anesthesia and pain medications well. No medications prior to admission. Past Medical History: Diagnosis Date ??? Patient denies medical problems ??? Patient denies relevant medical history Past Surgical History: Procedure Laterality Date ??? HX SECTION ??? HX DILATION AND CURETTAGE ??? HX TUBAL LIGATION No family history on file. Social History Tobacco Use ??? Smoking status: Never Smoker ??? Smokeless tobacco: Never Used Substance Use Topics ??? Alcohol use: No Review of Systems: Ten of fourteen systems were reviewed. Pertinent GI positives are noted in the HPI. Gen: Denies fever/chills or changes in weight, has generalized weakness Ren: Denies SOTO, paraesthesias ENT: Denies changes in vision, rhinitis CV: Denies CP, PND, orthopnea or edema Pulm: Denies SOB, productive cough or prior h/o VTE GI: See HPI MS: Denies arthralgias, myalgias Derm: Denies rashes or lesions. : Denies dysuria or hematuria Heme/Lymph: Denies night sweats, enlarged lymph nodes or abnormal bleeding Physical Exam: BP 131/78 (BP Location: Right arm, Patient Position (BP): Supine) Pulse 72 Temp 97.2 ??F (36.2 ??C) (Oral) Resp 18 Ht 5' 8 (1.727 m) Wt 94.8 kg (209 lb) SpO2 98% BMI 31.78 kg/m?? Intake/Output Summary (Last 24 hours) at 03/09/2021 0956 Last data filed at 03/09/2021 0823 Gross per 24 hour Intake 1396.96 ml Output 852 ml Net 544.96 ml General: WD/WN. In NAD HEENT: NCAT, sclera anicteric, conjunctiva pink, mucous membranes moist, gross hearing normal Neck: supple, trachea midline Lungs: normal respiratory effort, CTAB, without wheezes, crackles or rhonchi Heart: S1S2, RRR, without murmur or gallop Abdomen: protuberant, ND, +BS, soft, non tender to palpation, No HSM or palpable masses Skin: no jaundice, obvious rashes or lesions, warm to palpation Extremities: no cyanosis or edema Neurologic/Psych: A&Ox3, grossly nonfocal, normal mood/affect Pertinent Labs: Lab Results Component Value Date/Time WBC 5.4 [...] AM GLUCOSE 109 (H) 03/09/2021 07:34 AM TOTAL PROTEIN 8.4 03/08/2021 01:15 PM ALBUMIN 4.6 03/08/2021 01:15 PM BILIRUBIN TOTAL 0.6 03/08/2021 01:15 PM ALKALINE PHOSPHATASE 03/08/2021 01:15 PM Comment: Test cannot be performed due to gross hemolysis present. Redraw if indicated. AST 42 (H) 03/08/2021 01:15 PM ALT 16 03/08/2021 01:15 PM ANION GAP 14 03/09/2021 07:34 AM No results found for: INR, PT, PROTIMEPOC Pertinent Imaging: Narrative & Impression CT ABDOMEN PELVIS W CONTRAST WITH MULTIPLANAR REFORMATTED IMAGES DATE: 03/08/2021 5:20 PM CLINICAL INFORMATION: Left upper quadrant. COMPARISON: None available PROCEDURE: Axial images were obtained from the lung bases through the ischial tuberosities following the administration of 120 mL intravenous contrast. Oral contrast was not administered. Multiplanar reformatted images were reviewed. The examination was performed with the adjustment of mA according to the patient size and/or the use of Iterative Reconstruction Technique. DLP: 1031.5 mGy-cm FINDINGS: LOWER CHEST: Within normal limits. LIVER: There is lobulated low-attenuation centrally in hepatic segment IVb, similar to that along the falciform. GALLBLADDER: Within normal limits. BILE DUCTS: Within normal limits. PANCREAS: Within normal limits. SPLEEN: Within normal limits. ADRENALS: Within normal limits. KIDNEYS/URETERS: Within normal limits. BLADDER: Within normal limits. REPRODUCTIVE ORGANS: 3.5 x 2.8 cm right ovarian cyst. BOWEL: There is edema along the transverse colon. The transverse colon is thick-walled. There is no obstruction. The appendix is normal. There is no identifiable small bowel inflammation. The gastrointestinal vessels are well opacified and are normal in appearance. The cecum is in the right upper quadrant. PERITONEUM/RETROPERITONEUM: No ascites, free air or significant lymphadenopathy. VESSELS: Within normal limits. ABDOMINAL WALL: Within normal limits. BONES: Scoliosis. ?? IMPRESSION: Segmental colitis of the transverse colon. Given the length of involvement, consider ischemic colitis. Lobulated low-attenuation in hepatic segment IVb is likely focal fat. Recommend MRI to confirm. Impression/Plan: LUQ abd pain. Segmental colitis on imaging. DDx would include ischemic colitis, though history not consistent, IBD or infectious. Check gi path panel, CRP. May need colonoscopy sooner than later to exclude less likely malignancy. Liver lesion. MRI prior to dc or as outpatient for follow up. Sample hemolyzed. Repeat lft. I have discussed this case with Dr. Fung. This care plan has been outlined by him. Further recommendations will be made pending the patient's clinical course. Thank you very much for this consultation. I have spent a total of 25 min of time on the hospital floor reviewing pt records and speaking withthe pt and nursing staff and 15 min of time counseling the patient in regards to her current clinical situation and coordinating care. Italia Swain PA-C [facility] Digestive Diseases CC: No ref. provider found , Cornelio Rayo, DO I have personally seen and examined the patient. I have reviewed the note as entered and agree withthe assessment and plan with any exceptions, if any, as noted. I also performed the critical or keyportion(s) of the service as documented, and was directly involved in the management of the patientand supervised the care provided. Case discussed with Ms. Swain. On exam NAD. Anicteric. Lungs CTA. Car RRR. Abdomen soft, NT/ND. BS nl. Notes generally not tender with symptoms. No significant past medical or family history Etiology of CT findings unclear. Plan colonoscopy. Eventual MRI liver. documented in this encounter OR Notes * Blanca-OP - Erica Grover RN - 03/10/2021 7:13 AM CDT Routine Pre-Anesthesia Protocol for GI Lab Procedures [facility] Approved by: [facility] - Medical Executive Committee Approval Date: 09/24/2020 ORDERS ARE ENTERED ???PER PROTOCOL?? Enter the protocol in the patient???s electronic health record using [employer]: .anestprotocolgilab NURSING ORDERS: Monitoring: o Obtain and record vital signs o Continuous vital signs (Non-invasive blood pressure, pulse oximetry and cardiac monitoring) for all inpatients and all patients currently taking beta-blockers o Place #20 gauge IV in non-dominant, non-operative or not otherwise excluded upper extremity o Contact responsible anesthesiologist if recommending use of a #22 gauge IV o See medication section for local Anesthetic to use to initiate IV LABORATORY ORDERS: Screening Protocol: o Urine bHCG (serum if necessary) Female of menses, or age > 12 y/o Point of Care Testing: FOR PATIENTS WITH A HISTORY OF DIABETES, RECEIVING INSULIN, OR EXHIBITING SIGNS AND SYMPTOMS OF HYPOGLYCEMIA. o POC glucose on initial assessment o POC glucose every 4 hours if NPO o POC glucose within 30 minutes of discharge or transfer to another unit (the time based intra-procedure POC check may be deferred during short procedures at the discretion of the provider) o POC for any patient exhibiting signs and symptoms of hypoglycemia o If POC Glucose results are critical, do not delay treatment. If appropriate, may confirm POC with: Nursing Only [id number] (this lab can be obtained at no cost to the patient when confirming a criticalhigh or critical low POC glucose MEDICATION ORDERS: o Local Anesthetic to use to initiate IV line: Lidocaine 2% 0.3mL intradermal ONE TIME to numb areaof IV catheter insertion PRN. IV Fluid - Adult patients (age 18 years or greater): o Lactated ringer???s solution to infuse at 125mL/hr, may discontinue upon discharge from procedurearea o Patient specific modification as indicated: ? If patient is found to have a serum creatinine >2 or history of renal failure, RN may change fluid to NS at 10ml/hr Contact provider to consider dextrose containing fluids for: o NPO patients who have received PO or injectable antihyperglycemic agents and glucose is less ofta710 mg/dl o NPO patients who have NOT received PO or injectable antiHYPERglycemic agents and POC glucose is less than 70 mg/dL. o When receiving report on an inpatient, confirm if patient is receiving dextrose containing fluidsto prevent hypoglycemia. Communicate with the anesthesiologist and request glucose containing fluids be continued or added to intraoperative Fluids. o Any time a patient???s enteral or parenteral nutrition is interrupted for longer than four hours and POC glucose or serum glucose is less than 100 mg/dL contact provider for dextrose containing fluids o Notify provider for any POC glucose or serum glucose less than 70 mg/dL. RESCUE MEDICATION ORDERS - entered by the Pharmacist cantilever crane operator RESCUE ORDERS - entered by the Pharmacist or the software security consultant Orders Patient has IV access and UNCONCIOUS, UNWILLING to swallow or NPO Glucose Level Treatment 40-69 mg/dL Dextrose 50% IV, give 12.5 grams (25 ml), IV push ONE TIME Less than 40 mg/dL Dextrose 50% IV, give 25 grams (50 ml), IV push ONE TIME Patient has no IV access, patient UNCONCIOUS, unable to swallow or NPO Glucose Level Treatment Less than 70 mg/dL Administer IM GLUCAGON 1 mg one time. After administration of glucagon is complete insert peripheral IV and notify physician. Patient is CONCIOUS and able to swallow and no longer NPO Glucose Level Treatment 40-69 mg/dL Give 15 gram food choice such as: Regular soda (6 oz), Apple juice (4 oz), or 1/2 cup regular jello Less Than 40 mg/dL Give 30 gram food choice such as: Regular soda (12 oz), Apple juice (8 oz), or 1cup regular jello Nursing Communication for Subsequent Care: ??? Check POC glucose 15 minutes after rescue. ??? Recheck and retreat every 15 minutes until blood glucose is greater than or equal to 70 mg/dL. ??? Once POC glucose result is 70 mg/dL or greater: o Check POC glucose every 30 minutes for 3 occurrences o Resume previous POC Glucose check orders. After Hypoglycemic Symptoms Subside, Give a Snack or Ask Provider for Dextrose Containing Fluids SNACK CHOICES: 1 carb and 1 fat servin saltine crackers and 2 teaspoons peanut butter; or 1 slice of bread and 2 teaspoons peanut butter; or 1 oz cheese and 6 saltine crackers; or 1 cup 2% milk and 6 saltine crackers. * Anesthesia PAT Evaluation - Laurie Montgomery MD - 03/09/2021 2:50 PM CDT Pre-Procedure Anesthesiology Consultation and Evaluation (PACE) Service 03/09/2021 2:50 PM Name: Mary Earl Age: 51 y.o. Sex: female- inpatient CSN: [id number] Procedure(s): COLONOSCOPY Allergies Allergen Reactions ??? Sulfa (Sulfonamide Antibiotics) Swelling ??? Unclassified Drug Nausea and Vomiting Pt reports does not tolerate anesthesia and pain medications well. Current Facility-Administered Medications Medication Dose Route Frequency Provider Last Rate Last Admin ??? ciprofloxacin in dextrose 5% (CIPRO) IVPB 400 mg 400 mg IV every 12 hours (2 times daily) Sam Ross MD Stopped at 03/09/21 1328 ??? peg 3350-electrolytes (GOLYTELY) oral solution 4,000 mL 1 Bottle Oral ONE time only Iatlia Swain PA ??? iopamidoL (ISOVUE-300) 61 % injection (drawn from multi-use bulk pack) 120 mL 120 mL IV intra-proc ONE time Favio Grnat MD ??? sodium chloride flush injection 10 mL 10 mL IV see admin instructions Favio Grant MD ??? sodium chloride 0.9% infusion 50 mL 50 mL IV continuous Favio Grant MD ??? lactated ringers infusion IV continuous Dangelo Meyer MD 150 mL/hr at 03/09/21 0341 New Bag at 03/09/21 0341 ??? naloxone (NARCAN) 0.4 mg/mL injection 0.1 mg 0.1 mg IV see admin instructions Nando Rios NP ??? ondansetron (ZOFRAN) 4 mg/2 mL injection 4 mg 4 mg IV every 6 hours PRN Nando Rios NP ??? aluminum - magnesium - simethicone (MYLANTA) 200-200-20 mg/5 mL oral suspension 30 mL 30 mL Oral every 2 hours PRN Nando Rios, FIRER RETORT ??? bisacodyL (DULCOLAX) rectal suppository 10 mg 10 mg Rectal daily PRN Nando Rios NP ??? docusate sodium (COLACE) capsule 100 mg 100 mg Oral BID Nando Rios NP 100 mg at 03/09/21 0036 ??? acetaminophen (TYLENOL) tablet 650 mg 650 mg Oral every 6 hours PRN Nando Rios NP 650 mg at 03/09/21 0948 ??? metoclopramide (REGLAN) 5 mg/mL injection 10 mg 10 mg IV every 6 hours PRN Nando Rios NP ??? enoxaparin (LOVENOX) injection 40 mg 40 mg subCUT every 24 hours Nando Rios NP 40 mg at 03/09/21 0036 ??? metroNIDAZOLE (FLAGYL) IVPB 500 mg 500 mg IV every 8 hours Nando Rios NP 100 mL/hr at 03/09/21 1435 500 mg at 03/09/21 1435 ??? sodium chloride flush injection 10 mL 10 mL IV every 12 hours (2 times daily) Sam Ross MD ??? sodium chloride flush injection 10 mL 10 mL IV see admin instructions Sam Ross MD ??? sodium chloride 0.9 % 250 mL flush bag 25 mL 25 mL IV see admin instructions Sam Ross MD ??? dextrose 5 % in water 250 mL flush bag 25 mL 25 mL IV see admin instructions Sam Ross MD Patient Active Problem List Diagnosis Date Noted ??? Acute colitis ??? Abdominal pain 03/08/2021 ??? Hypokalemia 03/08/2021 Past Medical History: Diagnosis Date ??? Patient denies medical problems ??? Patient denies relevant medical history Past Surgical History: Procedure Laterality Date ??? HX SECTION ??? HX DILATION AND CURETTAGE ??? HX TUBAL LIGATION Social History Tobacco Use ??? Smoking status: Never Smoker ??? Smokeless tobacco: Never Used Substance Use Topics ??? Alcohol use: No No family history on file. Previous Anesthesia Problems/Concerns: Post-operative nausea & vomiting (PONV) and numbning medicine like epoidural for and at the dentist tend to last a long time with me History of PONV Yes Review of Systems Cardiovascular: negative for chest pain, chest pressure/discomfort, exertional chest pressure/discomfort, palpitations, shortness of breath/dyspnea. Respiratory: negative,Snoring - No, CRISELDA - No Gastrointestinal: positive for abdominal pain and acute colitis . Genitourinary:negative. Musculoskeletal: negative Neurological: negative Endocrine negative PHYSICAL EXAM BP 131/78 (BP Location: Right arm, Patient Position (BP): Supine) Pulse 72 Temp 36.2 ??C (Oral) Resp 18 Ht 5' 8 (1.727 m) Wt 94.8 kg (209 lb) SpO2 98% BMI 31.78 kg/m?? Weight: Weight: 94.8 kg (209 lb) (03/08/21 1236) Height: Ht Readings from Last 1 Encounters: 03/08/21 5' 8 (1.727 m) BMI: Body mass index is 31.78 kg/m??. General Appearance: Alert, oriented, no acute distress Airway: normal range of motion; Airway Class: II (soft palate, uvula, fauces visible); Special Considerations None Dentition: fair Lungs: clear to auscultation bilaterally, normal respiratory effort Heart: regular rate and rhythm, S1, S2 normal, no murmur, click, rub or gallop Neuro: alert, oriented x 3, no defects noted in general exam. Extremities: extremities normal, atraumatic, no cyanosis or edema LABS Lab Results Component Value Date/Time WBC [...] pain management discussed yes Smoking/Tobacco Counseling: None Recommendations:Nausea prophylaxis 03/09/21 Hospitalist note: Assessment/Plan: Principal Problem: Abdominal pain Active Problems: Hypokalemia ?? Recurrent abdominal pain -CT was concerning for segmental colitis of the transverse colon -GI was consulted -Differential includes ischemic colitis, IBD, infection -her history is not consistent with ischemic colitis, she has no family history or other risk factors for IBD -CRP is unremarkable, GI pathogen panel is pending -GI is considering colonoscopy during this admission -Clear liquid diet for now, n.p.o. midnight -Continue Cipro and Flagyl ?? Liver lesion -We will need MRI to follow-up -Liver enzymes are not elevated ?? Nutrition: Current Diet and/or Nutritional Supplementation ordered: DIET CLEAR LIQUID DIET NPO Sips w/Meds, ? DVT Prophylaxis - Enoxaparin Cook catheter:absent Lines: Peripheral IV PT POC OT POC Activity Order: Current Code Status -Full Code Plan discussed with patient and daughter, questions answered. Current Planned Disposition -Home, pending clinical course, suspect 24 to 48 hours. ? Kanika Aguillon, DO REPORT AND NECESSARY FOLLOW-UP History and physical performed in [facility]; tests (ECG, blood work) reviewed. Abnormal Results Found: no Further Testing or Evaluation Required: no Final [facility] Review: May proceed with procedure/surgery: yes, pending any change in the patient's condition or labs Nando Novoa PA-C I, Laurie Montgomery MD, attest that I have reviewed the Advanced Practitioner's note - including the history, documented findings, assessment, and plan. I agree with the plan as documented except wherenoted. Laurie Montgomery MD documented in this encounter ED Notes * Vandana Gomez RN - 03/08/2021 6:08 PM CDT Pt and family at bedside updated on bed status and visitor policy. Pt and family verbalized understanding of visitor policy * Vandana Gomez RN - 03/08/2021 6:06 PM CDT business process lead Candice notified of ready bed status * Vandana Gomez RN - 03/08/2021 6:06 PM CDT Patient/family has been informed about benefits and any potential clinically significant side effects or other concerns regarding the administration of the drug they have just been given. * Vandana Gomez RN - 03/08/2021 5:45 PM CDT Provider at bedside. * Vandana Gomez RN - 03/08/2021 4:20 PM CDT Pt to ED with C/O abdominal pain that started a month ago. Pt AXO X4; reports +abd pain that radiates to left side; states pain is a burning pain. Denies N/V/D. Pt reports feeling like she has a blockage and has been unable to have a good bowel movement. Pt reports her stool has been weird colors like maroon. Denies chest pain, SOB, fever/chills. Denies urinary symptoms. Pt placed on bedside monitor. Call light within reach. 1615: MD Meyer performing rectal exam with this RN at bedside * Vandana Gomez RN - 03/08/2021 3:45 PM CDT Provider at bedside. * Yamilex Pinto RN - 03/08/2021 1:06 PM CDT Images from the original note were not included. [facility] ED Adult Female Abdominal Pain Protocol [facility] Approved by: [facility] - Medical Executive Committee Approval Date: 04/23/2020 ORDERS ARE ENTERED ???PER PROTOCOL?? Nursing Orders: o Insert peripheral IV (excessive vomiting or diarrhea) Laboratory Orders: o CBC with diff ([id number]) o CMP (LAB17) o If female of childbearing age: POC Urine HCG (POC7) or HCG Qualitative urine ([id number]) if sending to lab o Urinalysis with Reflex Microscopy ([id number]) o Serum HCG (if knowingly ) (WSR356) o Obtain serum lipase (LAB99) if upper abdominal pain o Draw and send extra tubes to lab (ED hold) ([id number]) Diagnostic Test Orders: o If RUQ pain, consult attending physician for Gallbladder ultrasound o EKG if age >= 50 and having upper abdominal pain Include indication for test Medication Orders: o Sodium chloride 0.9% (normal saline) flush 5 mL every 8 hours o Sodium chloride 0.9% (normal saline) flush 5 mL PRN for saline lock or medication administration Additional Instructions: o Keep NPO until otherwise ordered by attending physician * Dangelo Meyer MD - 03/08/2021 12:19 PM CDT HISTORY OF PRESENT ILLNESS Mary Hoyt, a 51 y.o. female presents to the ED with a Chief Complaint of Abdominal Pain Subjective Documented Triage Chief Complaint: Abdominal Pain 3:42 PM: Mary Hoyt is a 51 y.o. female with no significant past medical history, who presents to the Emergency Department with complaints of 2 episodes of abdominal pain. 1 month ago, patient reports that she had an episode of abdominal pain located in her epigastric region and LUQ. She describes it as a burning sensation. Then yesterday, patient had another episode of the same pain, but she states this episode was significantly worse with associated nausea. Patient also complains of having bowel movements with hard stool recently and then yesterday noticed that her stool was maroon colored. Patient believes her symptoms are triggered by certain foods, but she is unsure which ones. She denies any significant NSAID use. No history of GERD. She does have a history of 2 C-sections. Patient also states that she has had some intentional weight loss with intermittent fasting. No tobacco or alcohol use. No other complaints at this time. Physician(s): No primary care provider on file. History provided by: The patient Arrived by: Private vehicle REVIEW OF SYSTEMS Review of Systems Constitutional: Negative for chills and fever. HENT: Negative for congestion and rhinorrhea. Eyes: Negative for discharge and redness. Respiratory: Negative for cough and shortness of breath. Cardiovascular: Negative for chest pain and leg swelling. Gastrointestinal: Positive for abdominal pain, blood in stool and nausea. Negative for constipation, diarrhea and vomiting. + hard stools Genitourinary: Negative for dysuria and hematuria. Musculoskeletal: Negative for back pain and neck pain. Skin: Negative for rash and wound. Neurological: Negative for dizziness and headaches. Hematological: Does not bruise/bleed easily. PAST MEDICAL HISTORY REVIEWED MEDICAL: Patient has a past medical history of Patient denies medical problems and Patient denies relevant medical history. SURGICAL: Patient has a past surgical history that includes section; dilation and curettage; and tubal ligation. FAMILY: Patient's family history is not on file. SOCIAL: reports that she has never smoked. She has never used smokeless tobacco. She reports that she does not drink alcohol and does not use drugs. No history on file. Social History Other Topics Concern ??? Not on file ALLERGIES Sulfa (sulfonamide antibiotics) and Unclassified drug HOME MEDICATIONS Patient's Home Medications Objective PHYSICAL EXAM INITIAL VS BP: (!) 139/98 (03/08/21 1236), Heart Rate: 94 bpm (03/08/21 1236), Resp: 20 (03/08/21 1236), Pulse: 94 (03/08/21 1236), Temp: 98.3 ??F (36.8 ??C) (03/08/21 1236), Temp src: Oral (03/08/21 1236), SpO2: 97 % (03/08/21 1236), Height: 5' 8 (172.7 cm) (03/08/21 123), Weight: 94.8 kg (209 lb) (03/08/21 123), BMI (Calculated): 31.79 (03/08/21 123) No LMP recorded. Physical Exam Vitals and nursing note reviewed. Exam conducted with a louver door assembler present. HENT: Head: Normocephalic and atraumatic. Eyes: Conjunctiva/sclera: Conjunctivae normal. Pupils: Pupils are equal, round, and reactive to light. Neck: Thyroid: No thyromegaly. Vascular: No JVD. Trachea: No tracheal deviation. Cardiovascular: Rate and Rhythm: Normal rate and regular rhythm. Pulses: Radial pulses are 2+ on the right side and 2+ on the left side. Dorsalis pedis pulses are 2+ on the right side and 2+ on the left side. Heart sounds: No murmur heard. No friction rub. No gallop. Pulmonary: Effort: Pulmonary effort is normal. No respiratory distress. Breath sounds: Normal breath sounds. No wheezing or rales. Abdominal: General: There is no distension. Palpations: Abdomen is soft. Tenderness: There is abdominal tenderness in the left upper quadrant. There is no guarding or rebound. Genitourinary: Rectum: Guaiac result negative. Comments: Rectal exam: brown stool. Musculoskeletal: General: No tenderness. Cervical back: Neck supple. Lymphadenopathy: Cervical: No cervical adenopathy. Skin: Findings: No erythema or rash. Neurological: Mental Status: She is alert and oriented to person, place, and time. DIAGNOSTICS LAB: CBC WITH DIFFERENTIAL - Abnormal Result Value WBC 7.1 RBC 4.99 (*) HEMOGLOBIN 14.8 HEMATOCRIT 45.6 (*) MCV 91.4 MCH 29.7 MCHC 32.5 RDW 13.1 RDW-STDEV 44.0 PLATELETS 328 MPV 10.9 NEUTROPHILS 61 LYMPHOCYTES 31 MONOCYTES 6 EOSINOPHILS 0 BASOPHILS 1 IMMATURE GRANULOCYTES 0 NEUTROPHIL ABSOLUTE 4.32 LYMPHOCYTE ABSOLUTE 2.21 MONOCYTE ABSOLUTE 0.44 EOSINOPHIL ABSOLUTE 0.03 BASOPHILS ABSOLUTE 0.04 IMMATURE GRANULOCYTES ABSOLUTE 0.01 COMPREHENSIVE METABOLIC PANEL - Abnormal SODIUM 138 POTASSIUM CHLORIDE 101 CO2 22 CALCIUM 9.8 BUN 8 CREATININE 0.65 GLUCOSE 111 (*) TOTAL PROTEIN 8.4 ALBUMIN 4.6 BILIRUBIN TOTAL 0.6 ALKALINE PHOSPHATASE AST 42 (*) ALT 16 GFR >60 GFR, >60 ANION GAP 15 URINALYSIS WITH REFLEX MICROSCOPIC - Abnormal COLOR UA Yellow CLARITY UA Clear SPECIFIC GRAVITY UA 1.013 PH UA 5.0 LEUKOCYTE ESTERASE UA Negative NITRITE UA Negative PROTEIN UA Negative GLUCOSE UA Negative KETONES UA Trace (*) UROBILINOGEN UA Normal BILIRUBIN UA Negative BLOOD UA 1+ (*) WBC UA 0-2 RBC UA 0-2 BACTERIA UA Negative EPITHELIAL CELLS, URINE 11-25 (*) POC ELECTROLYTES/BMP - Abnormal POC POTASSIUM 3.2 (*) COMMENT, BMP POC RN/MD NOTIFIED LOADING DOCK HAND NAME Tatyana Jacobson LIPASE - Normal LIPASE 23 POC POTASSIUM RADIOLOGY: CT ABDOMEN PELVIS W CONTRAST Radiologist Impression IMPRESSION: Segmental colitis of the transverse colon. Given the length of involvement, consider ischemic colitis. Lobulated low-attenuation in hepatic segment IVb is likely focal fat. Recommend MRI to confirm. DICTATION LOCATION: Location 1 - [facility] EKG: PROCEDURES Procedures MEDICAL DECISION MAKING AND PLAN OF CARE --upon initial evaluation, patient was seen and examined by me. Rectal exam performed at bedside with female RN louver door assembler. Labs obtained in triage. Discussed with patient plan to obtain CT abdomen pelvis for further evaluation. Patient is agreeable with this plan. ED provider and ED nurse verbally discussed patient plan of care at this time. ED Course as of Mar 08 1749 Mon Mar 08, 2021 1748 Abdominal pain improved at this time. [PK] ED Course User Index [PK] Dangelo Meyer MD [facility] Summary Statement: 51-year-old female with epigastric abdominal pain. Triggered by eating and drinking. On exam no focal abdominal tenderness. Patient given fluids and Protonix. CT and pelvis performed looking for possible mass given age and not having a colonoscopy. CT shows findings of colitis of the transverse colon. Questionable ischemic in nature. Patient denies any history of coronary disease or stroke. No history of irregular heartbeat or A. fib. No control use. Will cover with Sony Martell for possible infectious colitis. Will admit for further work-up. Patient comfortable this plan I have reviewed previous: notes I have reviewed current: labs and imaging I have reviewed nursing notes related to past medical history, social history, and review of systems and agree, unless otherwise noted. Medications Administered During the ED Stay from 03/08/2021 1219 to 03/08/2021 1749 Date/Time Order Dose Route Action 03/08/2021 1615 sodium chloride 0.9% bolus solution 1,000 mL 1,000 mL IV Started by Another Clinician 03/08/2021 1720 iopamidoL (ISOVUE-300) 61 % injection (drawn from multi-use bulk pack) 120 mL 120 mL IV Contrast Given 03/08/2021 1720 sodium chloride flush injection 10 mL 10 mL IV Given . LAST VS BP: (!) 157/116 (03/08/21 161), Heart Rate: 86 bpm (03/08/211614), Resp: 18 (03/08/21 161), Pulse: 85 (03/08/211614), Temp: 98.3 ??F (36.8 ??C) (03/08/21 1236), Temp src: Oral (03/08/21 123), SpO2: 100 % (03/08/211614) CLINICAL IMPRESSION Final diagnoses: [K52.9] Acute colitis (Primary) DISPOSITION, EDUCATION AND MEDICATION RECONCILIATION Medications reconciled. See after visit summary for patient education on discharged patients. ED Disposition ED Disposition Condition User Date/Time Comment Admit Stable Dangelo Meyer MD Mon Mar 08, 2021 5:47 PM ATTESTATION STATEMENTS This note has been prepared by Lindsay Hernandez acting as a scribe for Dr. Dangelo Meyer on 03/08/2021 at 4:16 PM. The scribe's documentation has been prepared under my direction and personally reviewed by me, Dangelo Meyer MD , in its entirety on 03/08/21 at 5:49 PM. I confirm that the note above accurately reflects all work, treatment, procedures, and medical decision making performed by me. documented in this encounter Miscellaneous Notes * Care Plan - Aminata Hernandez, MAXX - 03/11/2021 6:26 AM CDT SHIFT REPORT Neuro:Alert and oriented x 4 Resp:Room air Pain:Denies pain.Expressed since I have been at the hospital and on clear liquids I have no pain. GI:Passing flatus.Bm on 03/20.No nausea or emesis.Abdomen soft.+bowel sounds :Voiding well Skin:Intact.Independent.Walks frequently Refused Lovenox.Explained risk and benefits * Care Plan - Opal Hernandez GN - 03/10/2021 6:25 PM CDT A&Ox4 No complaints of pain throughout shift. Tolerating clear liquid diet. Ambulating independently in room. Adequate UOP, -BM Call light and belongings within reach. VSS, afebrile. * Treatment Plan - Lynsey Solomon RT - 03/10/2021 3:56 PM CDT Images from the original note were not included. ? ST IMS CT MRI Medication and Flush Protocol [facility] Approved by: [facility] - Medical Executive Committee Approval Date: 06/25/2020 ORDERS ARE ENTERED ???PER PROTOCOL?? Enter the protocol in the patient's electronic health record using smartphrase: .imagingctmriprotocol Communication Orders: o For ordered imaging procedures requiring intravenous access: ??? Initiate a peripheral IV, if not already in place, and discontinue IV prior to discharge (if outpatient). ??? Enter order if needed: Insert Peripheral IV o Bariatric Oral Contrast: Post-surgical bariatric patients will have markedly reduced ability to drink normal quantities of liquid. ??? Four ounces will be the maximum amount or less if the patient cannot comfortably tolerate. ??? Cancel oral contrast if patient is nauseated or vomiting. ??? Water based contrast only Medication Orders: o Local Anesthetic for use to initiate IV ADULT ??? Lidocaine 4% (L.M.X.4) applied topically ONE TIME prior to IV catheter insertion PRN (L.M.X.4 %should be applied 15 minutes prior to procedure) PEDIATRIC ??? Lidocaine 4% (L.M.X.4) applied topically ONE TIME prior to IV catheter insertion PRN (apply 30 minutes prior to procedure) ??? Sucrose 24% (Squirts) given PO prior to IV catheter insertion (administer 1 - 2 minutes prior to procedure) OR ??? Sucrose 24% (Tootsweet; Sweet-Ease) oral solution 0.2 mL oral (apply to tongue on pacifier or clean, gloved finger), ONE TIME 2 minutes prior to painful procedure. May repeat dose x1 PRN to complete procedure. o Sodium chloride 0.9% (normal saline) flush 10 mL PRN for saline lock or medication administration. o For respiratory distress, initiate oxygen and/or increase O2 to maintain saturation greater than 90% o For all invasive procedures: obtain Lidocaine 1% for intra-procedure administration. If Lidocaine1% unavailable, may substitute Lidocaine 2%. PROCEDURE SPECIFIC CT MEDICATIONS Any exceptions to these contrast protocols must be approved by a Radiologist and documented in the EHR Progress Notes. Cystogram (CT Pelvis): Iopamidol (Isovue 300) 61%, 50mL, diluted with 250mL of sterile NS. Inject Isovue into 250mL bag ofNS. Clamp cook catheter prior to instilling solution via catheter. o Instill up to 300mL of Isovue and NS solution into bladder via catheter, one time. CT ORAL CONTRAST PROTOCOLS FOR ADULTS ??? Use Iohexol (Omnipaque) 240 mg/mL for CT scan unless patient has a documented allergy to contrast dye. ??? If allergy present, use Barium Sulfate (EZ Paque) for procedure. o Iohexol (Omnipaque) 240 mg/mL: 50ml added to 960mL of clear liquid of patient's choice. Preferredroute is oral. May use nasoenteric tube if needed. ??? Administer 900mL of the diluted Omnipaque 240, orally, one time only. o Barium Sulfate (EZ Paque /Vanilla Silq) 96% oral suspension: Preferred route is oral. May use nasoenteric tube if needed. ??? Administer 900mL of barium sulfate, orally, one time only. CT ORAL CONTRAST PROTOCOLS FOR PEDIATRICS Pediatrics = up to age 18 o Pediatric Radiologist will approve of one of the following products selected for procedure. ??? Barium Sulfate (EZ Paque) 96% oral suspension: preferred route is oral. May use nasoenteric tube if needed. to 3 months Administer up to 90mL of Barium sulfate, orally, one time only 4 months to 1 year old Administer up to 240mL of Barium sulfate, Orally, One Time Only 1 year old to 5 years old Administer up to 360mL of Barium sulfate, Orally, One Time Only 5 years old to 10 years old Administer up to 480mL of Barium sulfate, Orally, One Time Only Over 10 years old Administer up to 600mL of Barium sulfate, Orally, One Time Only Iohexol (Omnipaque) 240 mg/mL oral solution ; Dilute 25mL of Iohexol with 480mL of clear liquid of patient's choice. Administer the diluted solution per age as follows: Preferred route is orally. May use nasoenteric tube if needed. ; Send any remaining diluted Iohexol solution with the patient's nurse to CT ; ; [place] ; Administer 45mL of diluted Iohexol oral solution, orally every 30 minutes x 2 doses. ; 1 month to 1 year old ; Administer 120mL of diluted Iohexol oral solution, orally every 30 min x 2 doses. ; 1 year old to 5 years old ; Administer 180mL of Iohexol orally every 30 min x 2 doses. ; 5 years old to 10 years old ; Administer 240mL of Iohexol orally every 30 min x 2 doses. ; Over 10 years old ; Administer 300mL of Iohexol orally every 30 min x 2 doses. ; ; CT RECTAL CONTRAST PROTOCOLS ADULTS: o Iohexol (Omnipaque) 240 mg/mL: Dilute 50mL of Omnipaque with 900mL of warm water in an enema bag.Administer the diluted solution rectally via gravity per patient's tolerance, up to 950mLs, one time only. ; CT IV CONTRAST PROTOCOLS for ADULT ; ADULTS: (If patient is less than 55kg and confirm dose with radiologist) o Iopadmidol (Isovue-300): Administer 2.2mL/kg of Iopamidol 61%, intravenously, one time only. o See table below for maximum dose, unless otherwise authorized by radiologist. If exam has been completed before the entire dose has been administered, stop the injection. o Multiple doses of iodine contrast within a 24-hour period are a risk factor for KETTY and should beavoided if possible. Emergent or other unusual circumstances where multiple doses of contrast are required in a short interval time should prompt consideration by the referring professional and radiologist to discuss the risks and benefits of contrast media administration. o If exam not included in table below, contact radiologist for orders. Procedure Maximum Dose CT Head with Contrast Up to [address] Chest with Contrast Up to [address] Maxillofacial with Contrast Up to [address] Soft Tissue Neck with Contrast CT Chest Abdomen Pelvis with Contrast CT Chest Abdomen with Contrast CT Abdomen Pelvis with Contrast CT Pelvis with Contrast CT Angiogram Examinations (all) CT Soft Tissue Neck and Chest Abdomen Pelvis with Contrast Up to [address] Soft Tissue Neck and Chest with Contrast CT Urogram with Contrast CT IV CONTRAST PROTOCOLS for PEDIATRICS PEDIATRICS: Use weight-based dosing if patient is less than 55kg and confirm dose with radiologist. to 15 years old Administer 2.2mL/kg (to MAX of 80 mL) of Iopamidol (Isovue-300) 61%, intravenously, one time only 15 years old and older Administer 2.2mL/kg (to MAX of 150mL) of Iopamidol (Isovue-300) 61%, intravenously, one time only PROCEDURE SPECIFIC MRI MEDICATIONS: MRI ENTEROGRAPHY: GLUGACON ADMINISTRATION ADULTS: (patient 18 years or older) o Patient will receive 2 doses of Glucagon one dose 0.5mg IM administered by RN prior to the MRI exam beginning 2nd dose 0.5mg IV prior to the IV contrast being administered. (If the patient is diabetic call the radiologist to verify administration of Glucagon) PEDIATRICS: If the patient is diabetic call the radiologist to verify administration of Glucagon o Pediatric patient weighing 24.9 kg or less should have one dose of Glucagon 0.5mg IM administeredby RN prior to MRI exam beginning. o Pediatric patient weighing 25 kg or greater should have one dose of Glucagon 1 mg IM administeredby RN prior to the MRI exam beginning. MRI UROGRAM: LASIX ADMINISTRATION ADULTS: Call radiologist with any questions regarding administration of Lasix o Lasix 0.1mg per kg with a minimum dose of Lasix 5mg IV being given up to a max dose of Lasix 10mgIV being given. The Lasix should be administered by RN prior to the IV contrast being administered. ??? (Hold Lasix if: obstruction, anuria and hypersensitivity to furosemide, and electrolyte imbalance or hypotension should be corrected by RN before administering) MRI IV CONTRAST PROTOCOLS ADULTS: Multihance and Prohance can be used for most MRI scans Prohance should be used primarily. Multihance is useful in specific circumstances as directed by the radiologist or per the appropriate sections established protocols. Group I gadolinium contrast agents shall not be administered. Generally, multiple doses of gadolinium contrast should not be administered within a 24-hour period. In emergent or other unusual circumstances where this is necessary, only Group II agents should beadministered. For Liver Studies: Contact radiologist to determine use of one of the following: ??? Gadobenate Dimeglumine (Multihance) (0.1mmol/0.2mL), Administer 0.1mmol/kg = 0.2mL/kg up to MAXof 20 mL, intravenously, one time only ??? Gadoteridol (Prohance) (0.1mmol/0.2mL), Administer 0.1mmol/kg = 0.2mL/kg up to MAX of 20mL, intravenously, one time only ??? Gadoxetate (Eovist) (2.5 mmol/10mL), Administer 0.025mmol/kg = 0.1mL/kg up to MAX of 10mL, intravenously, one time only PEDIATRICS: Radiologist to determine need for contrast Term neonates up to 2 years: Gadobuterol (Gadavist) (1mmol/mL injection), Administer 0.1mmol/kg = 0.1mL/kg up to MAX of 14mmol=14mL, intravenously, one time only OR Gadobenate Dimeglumine (Multihance) (0.1mmol/mL), Administer 0.1mmol/kg = 0.1mL/kg up to MAX of 14mmol = 14mL, intravenously, one time only 2 years and older Gadobenate Dimeglumine (Multihance) (0.1mmol/0.2mL), Administer 0.1mmol/kg = 0.2mL/kg up to MAX of 20mL, intravenously, one time only OR Gadoteridol (Prohance) (0.1mmol/0.2mL), Administer 0.1mmol/kg = 0.2mL/kg up to MAX of 20mL, intravenously, one time only TABLE 1. ACR Manual Classification of Gadolinium-Based Agents Relative to Nephrogenic Systemic Fibrosis Group I: Agents associated with the greatest number of NSF cases: o Gadodiamide (Omniscan?? - Yohobuy) o Gadopentetate dimeglumine (Magnevist?? - [employer]) o Gadoversetamide (OptiMARK?? - Guerbet) Group II: Agents associated with few, if any, unconfounded cases of NSF: o Gadobenate dimeglumine (MultiHance?? - [employer]) o Gadobutrol (Gadavist?? - [facility]; Gadovist in many countries) o Gadoteric acid (Dotarem?? - Guerbet, Clariscan - Yohobuy) Gadoteridol (ProHance?? - [employer]) Group III: Agents for which data remains limited regarding NSF risk, but for which few, if any unconfounded cases of NSF have been reported: Gadoxetate disodium (Eovist - [employer]; Primovist in many countries) * Care Plan - Opal Hernandez GN - 03/10/2021 10:40 AM CDT UNDRESS AND ASSESS FOR ALL ADMISSIONS AND TRANSFERS: Remove all existing dressings and assess all wounds upon admission (unless instructed by physician). Undress and Assess performed by: bedside coworker Opal and bedside coworker Mary. upon transfer to [facility]. Devonte Score: Devonte Score: 23 (03/09/21 2100) 1. Patient does not have skin breakdown. ??? If yes o Describe wound location and appearance: o LDA added for any open areas [...] wound care services. 5. Is a medical massage therapist in place?no If yes, remove device/brace/splint to [...] Injury Pathway initiated and appropriate interventions selected? Yes (Use for prevention of skin issues due to friction, shear, pressure, mobility or moisture issues.) 9. Was the Skin Care Treatment: Pressure Injury/Lower Extremity Ulcer Pathway initiated, and appropriate interventions selected? Yes (Use for conditions such as: existing pressure injuries, yeast, deep tissue injury, incontinence associated dermatitis, lower extremity ulcers, and skin tears) Wound care consult was not initiated. [facility] Skin Care Injury Prevention and Treatment Protocol [facility] Approved by: [facility] - Medical Executive Committee Approval Date: [...] treatments found in the Wound Care Algorithm. * Care Plan - Candice Anthony RN - 03/09/2021 4:51 PM CDT This RN assumed care of pt around 1430 Independent IV abx infused Tolerating clears; bowel prep started late afternoon Awaiting result from stool sample sent to lab Adequate UOP Enteric precautions maintained Problem: Gastrointestinal Goal: Achieve optimal gastrointestinal function by discharge or maintain baseline function Outcome: Variance * Care Plan - Opal Hernandez GN - 03/09/2021 4:48 PM CDT A&Ox4 C/o headache, controlled with prn Tylenol. Tolerating clear liquid diet. Ambulating independently in room. Adequate UOP, +BM. Call light and belongings within reach. VSS, afebrile. * Care Plan - Melba Sullivan MSW - 03/09/2021 9:12 AM CDT Clinical documentation reviewed. Comprehensive Discharge Planning Risk Assessment was completed. Readmission Risk (patient becomes high risk with a score of 8 or greater) 0 Total Score Total Score of 9 or below does not identify immediate needs for discharge. Age Score: 4 Disability Score: 0 Prior Living Status Score: {0 Mobility Limitation Score: 0 TOTAL SCORE: 4 PCP verified as Cornelio Rayo DO. Patient's insurance verified as Payor: BLUE CROSS AND BLUE SHIELD / Plan: BCBS TRADITIONAL / Product Type: PPO / . Please place consult if needs for discharge are identified. Care Management will continue to follow for discharge planning. Melba Sullivan [facility] Zone: [phone] Office: [phone] Day 1 - Current ([place] Pathway: Adult and Obstetrics) Patient, family, or healthcare designee is participating in individual care plan process Outcome: Met Problem: Discharge Planning Goal: Identify discharge needs upon admission and through discharge Description: Outcome: Progressing * Care Plan - Sofía oHwe RN - 03/09/2021 4:22 AM CDT IV LR at 150 Abx per MAR Did not use hat so not all urine output charted, educated on importance of accurate I/O NPO since MN Ind in room UNDRESS AND ASSESS FOR ALL ADMISSIONS AND TRANSFERS: Remove all existing dressings and assess all wounds upon admission (unless instructed by physician). Undress and Assess performed by: bedside coworker MAXX Gore and bedside coworker rell Hong on admission to [facility] Devonte Score: Devonte Score: 20 (03/09/21 0034) Patient does not have skin breakdown. If yes Describe wound location and appearance: LDA added for any open areas and for non-blanching pink/red or purple areas? N/A (please note, heels, ankles, knees, hips, sacrum, coccyx, ischium, gluteal, occiput, spine and all skin folds are high risk for skin breakdown) and consult wound care services 2. Was wound photographed: N/A 3. Is a specialty support surface utilized? N/A If yes, which one?: N/A i.e. impaired mobility, bariatric, malnourished, existing pressure injury. 4. Is the patient a paraplegic/quadriplegic? No If so, if stable spine immediately place on specialty surface. If unstable spine or new spinal injury, consult physician (per facility process) and consult wound care services. 5. Is a medical massage therapist in place?no If yes, remove device/brace/splint to check skin underneath, obtain provider order if necessary. 6. Does the patient have a wound VAC (negative pressure wound therapy)? N/A If yes, please consult wound care services and follow facility process. 7. Does the patient have an ostomy? N/A If yes, please consult wound care services. [...] tears) Wound care consult was not initiated. [facility] Skin Care Injury Prevention and Treatment Protocol [facility] Approved by: [facility] - Medical Executive Committee Approval Date: 05/23/2019 ORDERS ARE ENTERED ???PER PROTOCOL?? Nursing Orders: When a patient age 18 years or older has: a documented Devonte score of 18 or less or a Devonte sub score of 2 or 1, or a documented condition on the problem list of: diabetes, malnutrition or cachectic, paralysis, spinal cord disorder/injuries or muscle/neurological disease, THEN, the RN will order the Skin Care/Pressure Injury Prevention Pathway and initiate all appropriate interventions as per the Devonte Risk Assessment Algorithm. When a patient age 18 years or older has a wound requiring treatment, the RN and Wound Care Nurses may order the Skin Care/Pressure Ulcer/Lower Extremity Ulcer Treatment Pathway and use appropriate treatments found in the Nursing Algorithm. The Wound Care Nurse may also order treatments found in the Wound Care Algorithm. 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 [address] [place] [address] Yosef Salmeron MD [address] [facility] [address] [place] [address] documented as of this encounter Procedures Procedure Name Priority Date/Time Associated Diagnosis Comments MRI ABDOMEN W WO CONTRAST Routine 03/10/2021 4:05 PM CDT CEA Routine 03/10/2021 12:[address] CHEST W CONTRAST Routine 03/10/2021 1 1:45 AM CDT COLONOSCOPY REPORT 03/10/2021 9: 05 AM CDT PATHOLOGY Pathology 03/10/2021 8:15 AM CDT COLONOSCOPY 03/10/2021 7:45 AM CDT GI PATHOGEN PCR PANEL Routine 03/09/2021 5:53 PM CDT CTA ABD PELVIS W AND/OR WO CONTRAST Routine 03/09/2021 3:04 PM CDT CBC WITH DIFFERENTIAL Routine 03/09/2021 7:34 AM CDT C-REACTIVE PROTEIN Routine 03/09/2021 7: 34 AM CDT HEPATIC FUNCTION PANEL Routine 7:34 AM CDT BASIC METABOLIC PANEL Routine 03/09/2021 7:[address] ABDOMEN PELVIS W CONTRAST Stat 03/08/2021 5:20 PM CDT POC ELECTROLYTES/BMP Stat 03/08/2021 4:21 PM CDT POC OCCULT BLOOD 1 CARD Routine 03/08/2021 4:00 PM CDT URINALYSIS W/REFLEX MICROSCOPIC Stat 03/08/2021 1:24 PM CDT CBC WITH DIFFERENTIAL Stat 03/08/2021 1:15 PM CDT LIPASE Stat 03/08/2021 1:15 PM CDT COMPREHENSIVE METABOLIC PANEL Stat 03/08/2021 1:15 PM CDT documented in this encounter Results * MRI ABDOMEN W WO CONTRAST (03/10/2021 4:05 PM CDT) Anatomical Region Laterality Modality Abdomen Magnetic Resonan ce 03/10/2021 4:12 PM CDT Impressions 03/10/2021 9:47 PM CDT IMPRESSION: 1. No evidence of hepatic metastatic disease. 2. Segmental distal transverse colonic wall thickening as demonstrated on CT and with pending biopsy results. ?? DICTATION LOCATION: Location [address] [place] [address] 03/10/2021 9:47 PM CDT EXAMINATION: Abdominal MRI without and with contrast HISTORY: Liver lesion, > 1cm, US nondiagnostic, Colon stricture. Suspected cancer. Abnormal CT liver. Evaluate for metastatic disease with Eovist. TECHNIQUE: Multiplanar, multisequence images were obtained through the abdomen before and after the uneventful administration of intravenous gadolinium contrast (GADOXETATE 0.25 MMOL/ML (181.43 MG/ML) INTRAVENOUS SOLUTION Given:10 mL) according to routine protocol. ?? COMPARISON: CT performed 03/08/2021 FINDINGS: Liver: Parenchyma: Mild diffuse steatosis with more pronounced/focal fat deposition along the medial falciform ligament. No evidence of cirrhosis. Focal lesions: None. Vasculature: The hepatic veins are normal. The portal veins are normal. Biliary tree: Normal. Gallbladder: Mildly distended but otherwise normal. Spleen: Normal. Pancreas: Normal. Adrenal glands: Normal. Kidneys: Normal. Additional findings: No ascites or enlarged lymph nodes. Segmental distal transverse colonic wall thickening and surrounding stranding, as demonstrated on CT. Procedure Note Vikas Beal MD - 03/10/2021 EXAMINATION: Abdominal MRI without and with contrast HISTORY: Liver lesion, > 1cm, US nondiagnostic, Colon stricture. Suspected cancer. Abnormal CT liver. Evaluate for metastatic disease with Eovist. TECHNIQUE: Multiplanar, multisequence images were obtained through the abdomen before and after the uneventful administration of intravenous gadolinium contrast (GADOXETATE 0.25 MMOL/ML (181.43 MG/ML) INTRAVENOUS SOLUTION Given:10 mL) according to routine protocol. COMPARISON: CT performed 03/08/2021 FINDINGS: Liver: Parenchyma: Mild diffuse steatosis with more pronounced/focal fat deposition along the medial falciform ligament. No evidence of cirrhosis. Focal lesions: None. Vasculature: The hepatic veins are normal. The portal veins are normal. Biliary tree: Normal. Gallbladder: Mildly distended but otherwise normal. Spleen: Normal. Pancreas: Normal. Adrenal glands: Normal. Kidneys: Normal. Additional findings: No ascites or enlarged lymph nodes. Segmental distal transverse colonic wall thickening and surrounding stranding, as demonstrated on CT. IMPRESSION: 1. No evidence of hepatic metastatic disease. 2. Segmental distal transverse colonic wall thickening as demonstrated on CT and with pending biopsy results. DICTATION LOCATION: Location 1 [facility] Vikas Fung MD MR ORDERABLES * CEA (03/10/2021 12:46 PM CDT) CEA 2.1 <3.9 ng/mL 03/10/2021 1:53 PM CDT [facility] Blood Venipuncture / Unknown 03/10/2021 12:46 PM CDT 03/10/2021 12:59 PM CDT Narrative [facility] - 03/10/2021 1:53 PM CDT Reference Range: Non-smoker: </= 3.8 ng/mL Smoker: ? < 5.5 ng/mL The concentration of CEA in a given specimen, as determined by assays from different manufacturers, can vary because of differences in assay methods and reagent specificity. Values obtained with different assay methods cannot be used interchangeably. The testing method in use is the DELMY Electrochemiluminescence immunoassay. Results cannot be interpreted as absolute evidence of the presence or absence of malignancy. Values should be interpreted with caution during . Vikas Fung MD CHEMISTRY ORDERABLES [facility]# [id number] [address] [facility] [place] [place] [address] * CT CHEST W CONTRAST (03/10/2021 11:45 AM CDT) Anatomical Region Laterality Modality Chest Computed Tomogra phy 03/10/2021 12:0 9 PM CDT Impressions 03/10/2021 1:24 PM CDT IMPRESSION: Indeterminate 8 mm right middle lobe nodule. DICTATION LOCATION: Location 1 [facility] Narrative 03/10/2021 1:[address] CHEST W CONTRAST DATE: 03/10/2021 11:45 AM CLINICAL INFORMATION: Colon cancer staging COMPARISON: CT abdomen pelvis 03/08/2021 ?? PROCEDURE: Axial images were obtained from the thoracic inlet through the upper abdomen following the administration of intravenous contrast. Multiplanar reformatted images were reviewed. The examination was performed with the adjustment of mA according to the patient size and/or the use of Iterative Reconstruction Technique. ?? FINDINGS: ?? LUNGS/AIRWAYS/PLEURA: 8mm right middle lobe nodule. HEART/VESSELS: Within normal limits. ?? MEDIASTINUM AND LICO: Within normal limits. ?? CHEST WALL AND LOWER NECK: Within normal limits. VISUALIZED ABDOMEN: Partially visualized wall thickened transverse colon, as on recent CT. BONES: Degenerative spine changes. Procedure Note Kalia Emmanuel MD - 03/10/2021 CT CHEST W CONTRAST DATE: 03/10/2021 11:45 AM CLINICAL INFORMATION: Colon cancer staging COMPARISON: CT abdomen pelvis 03/08/2021 PROCEDURE: Axial images were obtained from the thoracic inlet through the upper abdomen following the administration of intravenous contrast. Multiplanar reformatted images were reviewed. The examination was performed with the adjustment of mA according to the patient size and/or the use of Iterative Reconstruction Technique. FINDINGS: LUNGS/AIRWAYS/PLEURA: 8mm right middle lobe nodule. HEART/VESSELS: Within normal limits. MEDIASTINUM AND LICO: Within normal limits. CHEST WALL AND LOWER NECK: Within normal limits. VISUALIZED ABDOMEN: Partially visualized wall thickened transverse colon, as on recent CT. BONES: Degenerative spine changes. IMPRESSION: Indeterminate 8 mm right middle lobe nodule. DICTATION LOCATION: Location 1 - [facility] Vikas Fung MD CT ORDERABLES * COLONOSCOPY REPORT (03/10/2021 9:05 AM CDT) Narrative Procedure Note Vikas Fung MD - 03/10/2021 9:05 AM CDT [facility] Endoscopy Patient Name: Mary Earl Procedure Date: 03/10/2021 Date of : 1970 Attending MD: Vikas Fung MD Procedure: Colonoscopy Indications: Abnormal CT of the GI tract Providers: Vikas Fung MD Referring MD: Cornelio Rayo MD Medicines: Monitored Anesthesia Care Complications: No immediate complications. Procedure: Informed consent was obtained for the procedure, including moderate sedation after risks were discussed. Based on the pre-procedure assessment, including review of the patient's medical history, medications, allergies, and review of systems, the patient was deemed to be an appropriate candidate for sedation. A timeout was performed. Continuous ECG monitoring, pulse oximetry, blood pressure monitoring, and direct observation were performed. The scope was introduced through the anus with the intention of advancing to the ileum. The scope was advanced to the transverse colon before the procedure was aborted. Medications were given. The quality of the bowel preparation was excellent. Estimated Blood Loss: Estimated blood loss: none. Findings: A fungating partially obstructing mass was found in the distal transverse colon. The mass was circumferential. The mass measured three cm in length. No bleeding was present. Biopsies were taken with a cold forceps for histology. Area was tattooed with an injection of Spot (carbon black). The mass could not be traversed with the colonoscope. An upper endoscope was utilized to traverse the stricture, but could not be advanced more than a few centimeters beyond the stricture due to looping. A pediatric colonoscope could not traverse the stricture. The exam was otherwise normal throughout the examined colon. 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 Biopsied. Tattooed. Recommendation: - Await pathology results. - CEA. - MRI liver. - CT chest. - Consider significance right adnexal cyst. - Colorectal surgery consult. Inpatient vs outpatient. - Will need completion colonoscopy after surgery to excluded more proximal lesions. - If colon cancer is confirmed, first degree relatives such as children, siblings and parents should begin colon cancer screening at age 40 and repeat every 5 years unless further individual or family history suggests shorter intervals. Vikas Fung MD 03/10/2021 9:05:12 AM This report has been signed electronically. Number of Addenda: [address]; [place] [address] Vikas Fung MD GI PROCEDURE ORDERAB LES * PATHOLOGY (03/10/2021 8:15 AM CDT) CASE REPORT Surgical Pathology Report ? Case: [id number] ? Authorizing Provider: ??Vikas Fung MD ?Collected: ? 03/10/2021 08:15 AM ? Ordering Location: ? [facility] ??Received: ?03/10/2021 10:41 AM ? Pathologist: ? Maryann Patel MD ? Specimen: ?Colon, transverse stricture bx ? 9:32 AM [facility] [employer] [facility] ADDENDUM 1 This addendum is issued to report results of immunohistochemistry for mismatch repair proteins. Site: Transverse colon Procedure: Biopsy Block: A1 The results of MMR IHC are as follows: PMS2: retained MLH1: retained MSH2: retained MSH6: retained Immunohistochemical (IHC) stains for the DNA mismatch repair (MMR) enzymes MLH1, MSH2, MSH6, and PMS2 have been performed. These show retained nuclear expression in the tumor cells equivalent to that seen in lymphocytes and smooth muscle in the adjacent normal tissue, a staining pattern that is usually not associated with a defect in mismatch repair function. Normal expression of all four proteins suggests this particular cancer is unlikely to be due to a hereditary germline mutation in the genes known to be associated with Ruff Syndrome. Clinical correlation is required. IHC is a reliable measure of DNA mismatch repair status but is neither completely sensitive nor specific and has limitations. 9:32 AM [facility] Addendum electronically signed by Maryann Patel MD on 03/15/2021 at 9:32 AM FINAL DIAGNOSIS Large intestine, transverse colon stricture, endoscopic biopsy: - Adenocarcinoma - MMR IHC in process 9:32 AM [facility] S DESCRIPTION Received in one container labeled Mary Earl and transverse colon stricture biopsy are 4 pieces of red-dorsey tissue ranging from 0.1 to 0.4 cm in greatest dimension. All are submitted in cassette A1. EL 9:32 AM [facility] MICROSCOPIC DESCRIPTION The slides are labeled [id number] and Mray Earl. The microscopic findings substantiate the above diagnosis. Immunohistochemical stains for mismatch repair proteins (MMR) are in process, and the results of which will be reported in an addendum. 1 9:32 AM [facility] OPERATIVE PROCEDURE 1: COLONOSCOPY 9:32 AM [facility] CLINICAL INFORMATION stricture 9:32 AM [facility] COMMENT Special stain and/or immunohistochemical results are interpreted with controls that demonstrate appropriate staining reactions. Note on use of immunocytochemistry reagents: This test was developed and its performance characteristics determined by [facility], Department of Laboratory Medicine. It has [...] part or completely in the following laboratories: [facility], CLIA #[id number] [address] [place] [address] [facility], CLIA #[id number] [address] [place] [address] [facility], [place] #[id number] [address] [place] [address] This report was created with the [employer] voice-activated dictation system. Inherent to this system is the possibility of syntax, grammar, punctuation and other errors that could impact the interpretation of the report. If there are interpretative questions about aspects of this report, please contact the performing pathologist. 9:32 AM APPLICATOR SPRAYER [facility] Tissue SPECIMEN FROM COLON / Unknown Collection / Unknown 03/10/2021 8:15 AM CDT 03/10/2021 10:41 AM CDT Comment:stricture Vikas Fung MD PATHOLOGY/CYTOLOGY O RDERABLES Performing Organization Address City/State/[facility] Co de Phone Number [facility] CLIA# [id number] [address] [place] [place] [address] * GI PATHOGEN PCR PANEL (03/09/2021 5:53 PM CDT) GI Pathogen PCR panel NOT DETECTED No nucleic acids detected. 03/09/2021 8:20 PM CDT [facility] Stool STOOL SPECIMEN / Unknown Collection / Unknown 03/09/2021 5:53 PM CDT 03/09/2021 6:07 PM CDT Narrative [facility] - 03/09/2021 8:20 PM CDT The Film Array GI Panel is a multiplexed nucleic acid detection test for 22 targets of bacteria, viruses, and parasites in stool that cause infectious diarrhea. Bacteria: Campylobacter C. difficile Plesiomonas shigelloides Salmonella Vibrio Vibrio cholerae Yersinia enterocolitica Enteroaggregative E. Coli (EAEC) Enteropathogenic E. Coli (EPEC) Enterotoxigenic E. Coli (ETEC) Shiga-like toxin-producing E. Coli (STEC) E. Coli O157 Shigella/Enteroinvasive E. Coli (EIEC) Viruses: Adenovirus F 40/41 Astrovirus Norovirus GI/GII Rotavirus A Sapovirus Parasites: Cryptosporidium Cyclospora cayetanensis Entamoeba histolytica Giardia duodenalis [place] [facility] - GENER AL ORDERABLES [facility] LABORATORY [facility] [id number] [address] [place] [address] * CTA ABD PELVIS W AND/OR WO CONTRAST (03/09/2021 3:04 PM CDT) Anatomical Region Laterality Modality Abdomen Computed Tomogra phy 03/09/2021 3:36 PM CDT Impressions 03/10/2021 8:05 AM CDT IMPRESSION: No evidence to suggest hemodynamic compromise to the bowel as described above. Right adnexal cyst. If clinically indicated further evaluation with ultrasound may be beneficial. DICTATION LOCATION: Location 1 - [facility] The examination was performed with the adjustment of mA according to the patient size and/or the use of Iterative Reconstruction Technique. ?? Narrative 03/10/2021 8:05 AM CDT CTA ABDOMEN AND PELVIS WITH AND WITHOUT IV CONTRAST DATE: 03/09/2021 3:04 PM HISTORY: Female of 51 years of age presenting with possible ischemic bowel disease. Following a rapid intravenous bolus of contrast, volumetric acquisition images of the abdomen and pelvis were obtained. Maximum intensity projection images as well as 3-D images and reconstruction images were performed on a separate workstation and submitted for interpretation. ANGIOGRAPHIC FINDINGS: The abdominal vascular structures are patent without evidence of significant atherosclerotic changes. The celiac axis, superior mesenteric artery and inferior mesenteric artery are patent. The iliofemoral vessels descend within the pelvis appropriately. There has been no significant change in comparison examination from March 08, 2021. NON-ANGIOGRAPHIC FINDINGS: Moderate changes of the transverse colon are again demonstrated to lesser degree. There is no evidence of abscess. The appendix is visualized and appears unremarkable. No free intraperitoneal air or fluid are present. The appearance of the liver is unchanged. The kidneys demonstrate bilateral symmetric uptake and concentration of contrast. A right adnexal cyst measuring 3 x 3.5 cm is present. Procedure Note Moe Melgoza MD - 03/10/2021 CTA ABDOMEN AND PELVIS WITH AND WITHOUT IV CONTRAST DATE: 03/09/2021 3:04 PM HISTORY: Female of 51 years of age presenting with possible ischemic bowel disease. Following a rapid intravenous bolus of contrast, volumetric acquisition images of the abdomen and pelvis were obtained. Maximum intensity projection images as well as 3-D images and reconstruction images were performed on a separate workstation and submitted for interpretation. ANGIOGRAPHIC FINDINGS: The abdominal vascular structures are patent without evidence of significant atherosclerotic changes. The celiac axis, superior mesenteric artery and inferior mesenteric artery are patent. The iliofemoral vessels descend within the pelvis appropriately. There has been no significant change in comparison examination from March 08, 2021. NON-ANGIOGRAPHIC FINDINGS: Moderate changes of the transverse colon are again demonstrated to lesser degree. There is no evidence of abscess. The appendix is visualized and appears unremarkable. No free intraperitoneal air or fluid are present. The appearance of the liver is unchanged. The kidneys demonstrate bilateral symmetric uptake and concentration of contrast. A right adnexal cyst measuring 3 x 3.5 cm is present. IMPRESSION: No evidence to suggest hemodynamic compromise to the bowel as described above. Right adnexal cyst. If clinically indicated further evaluation with ultrasound may be beneficial. DICTATION LOCATION: Location 1 - [facility] The examination was performed with the adjustment of mA according to the patient size and/or the use of Iterative Reconstruction Technique. Sam Ross MD CT ORDERABLES * (ABNORMAL) HEPATIC FUNCTION PANEL (03/09/2021 7:34 AM CDT) TOTAL PROTEIN 6.5(L) 6.7 - 8.6 g/dL 03/09/2021 10:34 AM CDT [facility] LABORATORY SERVICES [facility] ALBUMIN 4.4 3.5 - 5.2 g/dL 03/09/2021 10:34 AM CDT [facility] LABORATORY SERVICES [facility] BILIRUBIN TOTAL 0.5 0.3 - 1.2 mg/dL 03/09/2021 10:34 AM CDT [facility] LABORATORY SERVICES [facility] BILIRUBIN DIRECT <0.2 <0.4 mg/dL 03/09/20 10:34 AM CDT [facility] LABORATORY SERVICES [facility] ALKALINE PHOSPHATASE 87 35 - 104 U/L 03/09/2021 10:34 AM CDT [facility] LABORATORY SERVICES [facility] AST 11 <33 U/L 03/09/2021 10:34 AM CDT [facility] SERVICES [facility] ALT 12 <34 U/L 03/09/2021 10:34 AM CDT [facility] LABORATORY SERVICES [facility] Blood Venipuncture / Unknown 03/09/2021 7:34 AM CDT 03/09/2021 7:54 AM CDT Narrative [facility] LABORATORY SERVICES - [facility] - 03/09/2021 10:34 AM CDT Samples containing indocyanine green cause interferences on Total and/or Direct Bilirubin and must not be measured. [place] ANGELO CHEMISTRY ORDERABLES Performing Organization Address [facility] Co de Phone Number [facility] LABORATORY [facility] CLIA# [id number] [address] [place] [address] * (ABNORMAL) C-REACTIVE PROTEIN (03/09/2021 7:34 AM CDT) CRP 9.6(H) <5.0 mg/L 03/09/2021 10:34 AM CDT [facility] LABORATORY SERVICES [facility] Blood Venipuncture / Unknown 03/09/2021 7:34 AM CDT 03/09/2021 7:54 AM CDT [place] ANGELO CHEMISTRY ORDERABLES Performing Organization Address [facility] Co de Phone Number [facility] [id number] [facility] [address] [place] [address] * (ABNORMAL) BASIC METABOLIC PANEL (03/09/2021 7:34 AM CDT) SODIUM 143 136 - 145 mmol/L 03/09/2021 8:35 AM CDT [employer] LABORATORY SERVICES - [facility] POTASSIUM 3.8 3.5 - 5.0 mmol/L 03/09/2021 8:35 AM CDT [employer] LABORATORY SERVICES - . [facility] CHLORIDE 106 98 - 107 mmol/L 03/09/2021 8:35 AM CDT [employer] LABORATORY SERVICES - . [facility] CO2 23 22 - 29 mmol/L 03/09/2021 8:35 AM CDT [employer] LABORATORY SERVICES - . [facility] CALCIUM 9.0 8.6 - 10.2 mg/dL 03/09/2021 8:35 AM CDT [facility] LABORATORY SERVICES [facility] BUN 8 6 - 20 mg/dL 03/09/2021 8:35 AM CDT [facility] LABORATORY SERVICES [facility] CREATININE 0.62 0.51 - 0.95 mg/dL 03/09/2021 8:35 AM CDT [facility] LABORATORY [facility] GLUCOSE 109(H) 74 - 99 mg/dL 03/09/2021 8:35 AM CDT [facility] LABORATORY [facility] GFR >60 mL/min/1.7 3 sq meter 03/09/2021 8:35 AM CDT [facility] LABORATORY SERVICES - [facility] Comment: eGFR has not been validated [...] result. GFR, >60 mL/min/1.7 3 sq meter 03/09/2021 8:35 AM T [employer] LABORATORY [facility] ANION GAP 14 8 - 16 mmol/L 03/09/2021 8:35 AM T [facility] LABORATORY SERVICES [facility] Blood Venipuncture / Unknown 03/09/2021 7:34 AM CDT 03/09/2021 7:54 AM CDT Nando Rios NP CHEMISTRY ORDERABLE S [facility] [employer] SERVICES [facility] CLIA# [id number] [address] [place] [address] * CBC WITH DIFFERENTIAL (03/09/2021 7:34 AM CDT) WBC 5.4 4.0 - 9.8 K/uL 03/09/2021 8:06 AM CDT [facility] LABORATORY [facility] RBC 4.09 3.90 - 4.90 M/uL 03/09/2021 8:06 AM CDT [employer] LABORATORY SERVICES - . [facility] HEMOGLOBIN 11.9 11.8 - 14.8 g/dL 03/09/2021 8:06 AM CDT [employer] LABORATORY SERVICES - [facility] HEMATOCRIT 37.4 35.5 - 44.0 % 03/09/2021 8:06 AM CDT [employer] LABORATORY SERVICES - . [facility] MCV 91.4 82.0 - 99.0 fL 03/09/2021 8:06 AM CDT [employer] LABORATORY SERVICES - . [facility] MCH 29.1 27.2 - 32.6 pg 03/09/2021 8:06 AM CDT [employer] LABORATORY SERVICES - [facility] MCHC 31.8 31.5 - 35.5 g/dL 03/09/2021 8:06 AM CDT [employer] LABORATORY SERVICES - [facility] RDW 13.0 11.5 - 14.5 % 03/09/2021 8:06 AM CDT [employer] LABORATORY SERVICES - [facility] RDW-STDEV 43.8 37.1 - 48.7 fL 03/09/2021 8:06 AM CDT [employer] LABORATORY SERVICES - [facility] PLATELETS 198 140 - 350 K/uL 03/09/2021 8:06 AM CDT [employer] LABORATORY SERVICES - [facility] MPV 10.1 9.3 - 12.4 fL 03/09/2021 8:06 AM CDT [employer] LABORATORY SERVICES - . [facility] NEUTROPHILS 60 % 03/09/2021 8:06 AM CDT [employer] LABORATORY SERVICES - . [facility] LYMPHOCYTES 31 % 03/09/2021 8:06 AM CDT [employer] LABORATORY SERVICES - [facility] MONOCYTES 8 % 03/09/2021 8:06 AM CDT [employer] LABORATORY SERVICES - [facility] EOSINOPHILS 1 % 03/09/2021 8:06 AM CDT [employer] LABORATORY SERVICES - [facility] BASOPHILS 0 % 03/09/2021 8:06 AM CDT [employer] LABORATORY SERVICES - [facility] IMMATURE GRANULOCYTES 0 % 03/09/2021 8:06 AM CDT [employer] LABORATORY SERVICES - . [facility] NEUTROPHIL ABSOLUTE 3.23 1.90 - 7.00 K/uL 03/09/2021 8:06 AM CDT [employer] LABORATORY SERVICES - [facility] LYMPHOCYTE ABSOLUTE 1.67 0.70 - 4.50 K/uL 03/09/2021 8:06 AM CDT [facility] LABORATORY [facility] - . [facility] MONOCYTE ABSOLUTE 0.42 0.10 - 1.30 K/uL 03/09/2021 8:06 AM CDT [facility] LABORATORY [facility] - [facility] EOSINOPHIL ABSOLUTE 0.05 0.00 - 0.70 K/uL 03/09/2021 8:06 AM CDT [facility] LABORATORY [facility] - [facility] BASOPHILS ABSOLUTE 0.02 0.00 - 0.20 K/uL 03/09/2021 8:06 AM CDT [facility] LABORATORY [facility] - . [facility] IMMATURE GRANULOCYTES ABSOLUTE 0.02 0.00 - 0.03 K/uL 03/09/2021 8:06 AM T [facility] LABORATORY [facility] - [facility] Blood Venipuncture / Unknown 03/09/2021 7:34 AM CDT 03/09/2021 7:54 AM CDT Nando Rios NP HEMATOLOGY ORDERABL ES [facility] CLIA# [id number] [facility] [place] [address] * CT ABDOMEN PELVIS W CONTRAST (03/08/2021 5:20 PM CDT) Anatomical Region Laterality Modality Abdomen Computed Tomogra phy 03/08/2021 5:20 PM CDT Impressions 03/08/2021 5:42 PM CDT IMPRESSION: ?? Segmental colitis of the transverse colon. Given the length of involvement, consider ischemic colitis. Lobulated low-attenuation in hepatic segment IVb is likely focal fat. Recommend MRI to confirm. DICTATION LOCATION: Location 1 - [facility] Narrative 03/08/2021 5:[address] ABDOMEN PELVIS W CONTRAST WITH MULTIPLANAR REFORMATTED IMAGES DATE: 03/08/2021 5:20 PM CLINICAL INFORMATION: Left upper quadrant. COMPARISON: None available PROCEDURE: Axial images were obtained from the lung bases through the ischial tuberosities following the administration of 120 mL intravenous contrast. Oral contrast was not administered. Multiplanar reformatted images were reviewed. The examination was performed with the adjustment of mA according to the patient size and/or the use of Iterative Reconstruction Technique. ?? DLP: 1031.5 mGy-cm FINDINGS: ?? LOWER CHEST: Within normal limits. ?? LIVER: There is lobulated low-attenuation centrally in hepatic segment IVb, similar to that along the falciform. GALLBLADDER: Within normal limits. ?? BILE DUCTS: Within normal limits. ?? PANCREAS: Within normal limits. ?? SPLEEN: Within normal limits. ?? ADRENALS: Within normal limits. ?? KIDNEYS/URETERS: Within normal limits. ?? BLADDER: Within normal limits. ?? REPRODUCTIVE ORGANS: 3.5 x 2.8 cm right ovarian cyst. BOWEL: There is edema along the transverse colon. The transverse colon is thick-walled. There is no obstruction. The appendix is normal. There is no identifiable small bowel inflammation. The gastrointestinal vessels are well opacified and are normal in appearance. The cecum is in the right upper quadrant. PERITONEUM/RETROPERITONEUM: No ascites, free air or significant lymphadenopathy. ?? VESSELS: Within normal limits. ?? ABDOMINAL WALL: Within normal limits. ?? BONES: Scoliosis. Procedure Note Alvina Mcarthur MD - 03/08/2021 CT ABDOMEN PELVIS W CONTRAST WITH MULTIPLANAR REFORMATTED IMAGES DATE: 03/08/2021 5:20 PM CLINICAL INFORMATION: Left upper quadrant. COMPARISON: None available PROCEDURE: Axial images were obtained from the lung bases through the ischial tuberosities following the administration of 120 mL intravenous contrast. Oral contrast was not administered. Multiplanar reformatted images were reviewed. The examination was performed with the adjustment of mA according to the patient size and/or the use of Iterative Reconstruction Technique. DLP: 1031.5 mGy-cm FINDINGS: LOWER CHEST: Within normal limits. LIVER: There is lobulated low-attenuation centrally in hepatic segment IVb, similar to that along the falciform. GALLBLADDER: Within normal limits. BILE DUCTS: Within normal limits. PANCREAS: Within normal limits. SPLEEN: Within normal limits. ADRENALS: Within normal limits. KIDNEYS/URETERS: Within normal limits. BLADDER: Within normal limits. REPRODUCTIVE ORGANS: 3.5 x 2.8 cm right ovarian cyst. BOWEL: There is edema along the transverse colon. The transverse colon is thick-walled. There is no obstruction. The appendix is normal. There is no identifiable small bowel inflammation. The gastrointestinal vessels are well opacified and are normal in appearance. The cecum is in the right upper quadrant. PERITONEUM/RETROPERITONEUM: No ascites, free air or significant lymphadenopathy. VESSELS: Within normal limits. ABDOMINAL WALL: Within normal limits. BONES: Scoliosis. IMPRESSION: Segmental colitis of the transverse colon. Given the length of involvement, consider ischemic colitis. Lobulated low-attenuation in hepatic segment IVb is likely focal fat. Recommend MRI to confirm. DICTATION LOCATION: Location 1 - [facility] Dangelo Meyer MD CT ORDERABLES * (ABNORMAL) POC ELECTROLYTES/BMP (03/08/2021 4:21 PM CDT) [facility] POTASSIUM POC 3.2(L) 3.5 - 4.9 mmol/L 03/08/2021 4:21 PM CDT [facility] LABORATORY [facility] COMMENT, BMP POC RN/ NOTIFIED 03/08/2021 4:21 PM CDT [facility] LOADING DOCK HAND NAME POC Tatyana Jacobson 03/08/2021 4:21 PM CDT [facility] Blood 03/08/2021 4:21 PM CDT 03/08/2021 4:22 PM CDT Dangelo Meyer MD POINT OF CARE TESTIN G [facility]# [id number] [facility] [place] [place] [address] * POC OCCULT BLOOD 1 CARD (03/08/2021 4:00 PM CDT) OCCULT BLOOD 1 CARD POC Negative Negative 03/08/2021 4:00 PM CDT [facility] LOADING DOCK HAND NAME POC CHINO MEDEIROS 03/08/2021 4:00 PM CDT [facility] LABORATORY [facility] Stool STOOL SPECIMEN / Unknown 03/08/2021 4:00 PM CDT 03/10/2021 8:28 AM CDT Dangelo Meyer MD POINT OF CARE TESTIN G [facility] LABORATORY SERVICES - [facility] CLIA# [id number] [address] [facility] [place] [address] * (ABNORMAL) URINALYSIS WITH REFLEX MICROSCOPIC (03/08/2021 1:24 PM CDT) COLOR UA Yellow Pale to Dark Yellow 03/08/2021 1:40 PM CDT [employer] LABORATORY SERVICES - [facility] CLARITY UA Clear Clear 03/08/2021 1:40 PM CDT [employer] LABORATORY SERVICES - [facility] SPECIFIC GRAVITY UA 1.013 1.003 - 1.035 03/08/2021 1:40 PM CDT [employer] LABORATORY SERVICES - [facility] PH UA 5.0 5.0 - 8.0 03/08/2021 1:40 PM CDT [employer] LABORATORY SERVICES - [facility] LEUKOCYTE ESTERASE UA Negative Negative 03/08/2021 1:40 PM CDT [employer] LABORATORY SERVICES - [facility] NITRITE UA Negative Negative 03/08/2021 1:40 PM CDT [employer] LABORATORY SERVICES - [facility] PROTEIN UA Negative Negative 03/08/2021 1:40 PM CDT [employer] LABORATORY SERVICES - [facility] GLUCOSE UA Negative Negative 03/08/2021 1:40 PM CDT [employer] LABORATORY SERVICES - [facility] KETONES UA Trace(A) Negative 03/08/2021 1:40 PM CDT [employer] LABORATORY SERVICES - [facility] UROBILINOGEN UA Normal <2.0 mg/dL 1:40 PM CDT [employer] LABORATORY SERVICES - [facility] BILIRUBIN UA Negative Negative 03/08/2021 1:40 PM CDT [employer] LABORATORY SERVICES - [facility] BLOOD UA 1+(A) Negative 03/08/2021 1:40 PM CDT [employer] LABORATORY SERVICES - [facility] WBC UA 0-2 0 - 2 /hpf 03/08/2021 1:40 PM CDT [employer] LABORATORY SERVICES - . [facility] RBC UA 0-2 0 - 2 /hpf 03/08/2021 1:40 PM CDT [facility] LABORATORY SERVICES - [facility] BACTERIA UA Negative Negative /hpf 03/08/2021 1:40 PM CDT [facility] LABORATORY [facility] EPITHELIAL CELLS, URINE -25(A) 0 - 5 /hpf 03/08/2021 1:40 PM CDT [facility] LABORATORY [facility] - [facility] Urine URINE SPECIMEN OBTAINED BY CLEAN CATCH PROCEDURE / Unknown Collection / Unknown 03/08/2021 1:24 PM CDT 03/08/2021 1:29 PM CDT Dangelo Meyer MD URINE ORDERABLES [facility] LABORATORY [facility] CLIA# [id number] [address] [place] [address] * LIPASE (03/08/2021 1:15 PM CDT) LIPASE 23 13 - 60 U/L 03/08/2021 4:07 PM CDT [facility] LABORATORY [facility] Blood Venipuncture / Unknown 03/08/2021 1:15 PM CDT 03/08/2021 1:19 PM CDT Dangelo Meyer MD CHEMISTRY ORDERABLES [facility] CLIA# [id number] [address] [place] [address] * (ABNORMAL) COMPREHENSIVE METABOLIC PANEL (03/08/2021 1:15 PM CDT) SODIUM 138 136 - 145 mmol/L 03/08/2021 1:54 PM CDT [employer] LABORATORY [facility] POTASSIUM 03/08/2021 1:54 PM CDT [facility] LABORATORY SERVICES [facility] Comment:Test cannot be perfo rmed due to gross hemolysis present. Redraw if indicated. CHLORIDE 101 98 - 107 mmol/L 03/08/2021 1:54 PM CDT [employer] LABORATORY SERVICES [facility] CO2 22 22 - 29 mmol/L 03/08/2021 1:54 PM CDT [employer] LABORATORY SERVICES - . [facility] CALCIUM 9.8 8.6 - 10.2 mg/dL 03/08/2021 1:54 PM T [facility] LABORATORY SERVICES - [facility] BUN 8 6 - 20 mg/dL 03/08/2021 1:54 PM T [facility] LABORATORY SERVICES - [facility] CREATININE 0.65 0.51 - 0.95 mg/dL 03/08/2021 1:54 PM T [facility] LABORATORY SERVICES - . [facility] GLUCOSE 111(H) 74 - 99 mg/dL 03/08/2021 1:54 PM T [facility] LABORATORY SERVICES - [facility] TOTAL PROTEIN 8.4 6.7 - 8.6 g/dL 03/08/2021 1:54 PM T [facility] LABORATORY SERVICES - [facility] ALBUMIN 4.6 3.5 - 5.2 g/dL 03/08/2021 1:54 PM T [employer] LABORATORY SERVICES - [facility] BILIRUBIN TOTAL 0.6 0.3 - 1.2 mg/dL 03/08/2021 1:54 PM [facility] [employer] LABORATORY SERVICES - . [facility] ALKALINE PHOSPHATASE 03/08/2021 1:54 PM T [facility] [employer] LAB[facility] - [facility] Comment:Test cannot be perfo rmed due to gross hemolysis present. Redraw if indicated. AST 42(H) <33 U/L 03/08/2021 1:54 PM [facility] LABORATORY SERVICES [facility] Comment:Hemolysis present. R esult may be falsely elevated. ALT 16 <34 U/L 03/08/2021 1:54 PM [facility] LABORATORY SERVICES [facility] Comment:Hemolysis present. R esult may be falsely elevated. GFR >60 mL/min/1.7 3 sq meter 03/08/2021 1:54 PM [facility] LABORATORY SERVICES [facility] Comment: eGFR has not been validated for [...] result. GFR, >60 mL/min/1.7 3 sq meter 03/08/2021 1:54 PM CDT [facility] LABORATORY SERVICES - [facility] ANION GAP 15 8 - 16 mmol/L 03/08/2021 1:54 PM CDT [facility] LABORATORY SERVICES - [facility] Blood Venipuncture / Unknown 03/08/2021 1:15 PM CDT 03/08/2021 1:19 PM CDT [employer] LABORATORY SERVICES - [facility] - 03/08/2021 1:54 PM CDT Samples containing indocyanine green cause interferences on Total and/or Direct Bilirubin and must not be measured. Dangelo Meyer MD CHEMISTRY ORDERABLES [facility] LABORATORY SERVICES [facility] CLIA# [id number] [address] [facility] [place] [address] * (ABNORMAL) CBC WITH DIFFERENTIAL (03/08/2021 1:15 PM CDT) WBC 7.1 4.0 - 9.8 K/uL 03/08/2021 1:28 PM CDT [facility] LABORATORY SERVICES - [facility] RBC 4.99(H) 3.90 - 4.90 M/uL 03/08/2021 1:28 PM CDT [facility] LABORATORY SERVICES - [facility] HEMOGLOBIN 14.8 11.8 - 14.8 g/dL 03/08/2021 1:28 PM CDT [facility] LABORATORY SERVICES - [facility] HEMATOCRIT 45.6(H) 35.5 - 44.0 % 03/08/2021 1:28 PM CDT [facility] LABORATORY SERVICES - [facility] MCV 91.4 82.0 - 99.0 fL 03/08/2021 1:28 PM CDT [facility] LABORATORY SERVICES - [facility] MCH 29.7 27.2 - 32.6 pg 03/08/2021 1:28 PM CDT [facility] LABORATORY SERVICES - [facility] MCHC 32.5 31.5 - 35.5 g/dL 03/08/2021 1:28 PM CDT [facility] SERVICES - [facility] RDW 13.1 11.5 - 14.5 % 03/08/2021 1:28 PM CDT [employer] LABORATORY SERVICES - [facility] RDW-STDEV 44.0 37.1 - 48.7 fL 03/08/2021 1:28 PM CDT [employer] LABORATORY SERVICES - [facility] PLATELETS 328 140 - 350 K/uL 03/08/2021 1:28 PM CDT [employer] LABORATORY SERVICES - [facility] MPV 10.9 9.3 - 12.4 fL 03/08/2021 1:28 PM CDT [employer] LABORATORY SERVICES - [facility] NEUTROPHILS 61 % 03/08/2021 1:28 PM CDT [employer] LABORATORY SERVICES - [facility] LYMPHOCYTES 31 % 03/08/2021 1:28 PM CDT [employer] LABORATORY SERVICES - [facility] MONOCYTES 6 % 03/08/2021 1:28 PM CDT [employer] LABORATORY SERVICES - [facility] EOSINOPHILS 0 % 03/08/2021 1:28 PM CDT [employer] LABORATORY SERVICES - [facility] BASOPHILS 1 % 03/08/2021 1:28 PM CDT [employer] LABORATORY SERVICES - [facility] IMMATURE GRANULOCYTES 0 % 03/08/2021 1:28 PM CDT [employer] LABORATORY SERVICES - [facility] NEUTROPHIL ABSOLUTE 4.32 1.90 - 7.00 K/uL 03/08/2021 1:28 PM CDT [employer] LABORATORY SERVICES - [facility] LYMPHOCYTE ABSOLUTE 2.21 0.70 - 4.50 K/uL 03/08/2021 1:28 PM CDT [employer] LABORATORY SERVICES - [facility] MONOCYTE ABSOLUTE 0.44 0.10 - 1.30 K/uL 03/08/2021 1:28 PM CDT [employer] LABORATORY SERVICES - [facility] EOSINOPHIL ABSOLUTE 0.03 0.00 - 0.70 K/uL 03/08/2021 1:28 PM CDT [facility] BASOPHILS ABSOLUTE 0.04 0.00 - 0.20 K/uL 03/08/2021 1:28 PM CDT [facility] IMMATURE GRANULOCYTES ABSOLUTE 0.01 0.00 - 0.03 K/uL 03/08/2021 1:28 PM CDT [employer] [facility] Blood Venipuncture / Unknown 03/08/2021 1:15 PM CDT 03/08/2021 1:19 PM CDT Dangelo Meyer MD HEMATOLOGY ORDERABLE S [facility]# [id number] [id number] [place] [address] documented in this encounter Visit Diagnoses Not on filedocumented in this encounter Administered Medications Inactive Administered Medications - up to 3 most recent administrations Medication Order MAR Action Action Date Dose Rate Site acetaminophen (TYLENOL) tablet 650 mg 650 mg, Oral, EVERY 6 HOURS PRN, Starting on Mon03/08/21 at 1909, Until Mon03/12/21 at 0044, Other (See Comment), See admin instructions, Routine Given 03/09/2021 9:48 AM CDT 650 mg aluminum - magnesium - simethicone (MYLANTA) 200-200-20 mg/5 mL oral suspension 30 mL 30 mL, Oral, EVERY 2 HOURS PRN, Starting on Mon03/08/21 at 1909, Until Mon03/12/21 at 0044, Indigestion, Routine bisacodyL (DULCOLAX) rectal suppository 10 mg 10 mg, Rectal, DAILY PRN, Starting on Mon03/08/21 at 1909, Until Mon03/12/21 at 0044, Constipation, Routine dextrose 5 % in water 250 mL flush bag 25 mL 25 mL, IV, SEE ADMIN INSTRUCTIONS, Starting on Mon03/08/21 at 2144, Until Mon03/12/21 at 0044, Routine docusate sodium (COLACE) capsule 100 mg 100 mg, Oral, TWO TIMES DAILY, First dose on Mon03/08/21 at 2100, Until Discontinued, Routine Given 03/11/2021 10:15 AM CDT 100 mg Given 03/09/2021 12:36 AM CDT 100 mg enoxaparin (LOVENOX) injection 40 mg 40 mg, subCUT, EVERY 24 HOURS, First dose on Mon03/08/21 at 2000, Until Discontinued, Routine, Indication: Prophylaxis of VTE, Dose to be adjusted per facility protocol? Yes Given 03/09/2021 9:03 PM CDT 40 mg Arm, Left Given 03/09/2021 12:36 AM CDT 40 mg A bdominal Tissue metoclopramide (REGLAN) 5 mg/mL injection 10 mg 10 mg, IV, EVERY 6 HOURS PRN, Starting on Mon03/08/21 at 1909, Until Mon03/12/21 at 0044, Nausea/Emesis, Routine naloxone (NARCAN) 0.4 mg/mL injection 0.1 mg 0.1 mg, IV, SEE ADMIN INSTRUCTIONS, Starting on Mon03/08/21 at 1909, Until Mon03/12/21 at 0044, Routine ondansetron (ZOFRAN) 4 mg/2 mL injection 4 mg 4 mg, IV, EVERY 6 HOURS PRN, Starting on Mon03/08/21 at 1909, Until Mon03/12/21 at 0044, Nausea/Emesis, Routine polyethylene glycol (MIRALAX) packet 17 Gram 17 Gram, Oral, DAILY, First dose on Estefany 03/11/21 at 0915, Until Discontinued, Routine Given 03/11/2021 10:15 AM CDT 17 Grams sodium chloride 0.9 % 250 mL flush bag 25 mL 25 mL, IV, SEE ADMIN INSTRUCTIONS, Starting on Mon03/08/21 at 2144, Until Mon03/12/21 at 0044, Routine sodium chloride flush injection 10 mL 10 mL, IV, EVERY 12 HOURS (BlD), First dose on Mon03/09/21 at 0900, Until Discontinued, Routine Given 03/11/2021 10:15 AM CDT 10 mL Given 03/10/2021 10:30 PM CDT 10 mL sodium chloride flush injection 10 mL 10 mL, IV, SEE ADMIN INSTRUCTIONS, Starting on Mon03/09/21 at 0000, Until Mon03/12/21 at 0044, Routine documented in this encounter Active and Recently Administered Medications Times are shown in CDT. Scheduled Medication Order 03/09/2021 03/10/2021 03/11/2021 ciprofloxacin in dextrose 5% (CIPRO) IVPB 400 mg (CANCELED) 400 mg, IV, EVERY 12 HOURS (BlD), First dose (after last modification) on Mon03/09/21 at 0100, Until Discontinued, Routine, Antibiotic Indication: Intra-abdominal infection / Fecal Contamination, Is sepsis suspected? Unlikely 0034 (New Bag - Provider: Sofía Howe RN)0134 (Stopped - Provider: Sofía Howe RN)1228 (New Bag - Provider: ROSCOE Whitmore)1328 (Stopped - Provider: ROSCOE Whitmore)2055 (Canceled Entry - Provider: Litzy Dee Nurse) 0007 (New Bag - Provider: Litzy Dee Nurse)0107 (Stopped - Provider: Blanca Boo RN)1406 (New Bag - Provider: ROSCOE Whitmore)1506 (Stopped - Provider: ROSCOE Whitmore) 0037 (New Bag - Provider: Aminata Hernandez RN)0137 (Stopped - Provider: Aminata Hernandez RN) dextrose 5 % in water 250 mL flush bag 25 mL 25 mL, IV, SEE ADMIN INSTRUCTIONS, Starting on Mon03/08/21 at 2144, Until Mon03/12/21 at 0044, Routine docusate sodium (COLACE) capsule 100 mg 100 mg, Oral, TWO TIMES DAILY, First dose on Mon03/08/21 at 2100, Until Discontinued, Routine 0036 (Given - Provider: Sofía Howe RN)0900 (Refused - Provider: ROSCOE Whitmore)2099 (Refused - Provider: Litzy Dee Nurse) 09 (Not Given - Provider: ROSCOE Whitmore - Reason: Patient off unit)2099 (Not Given - Provider: Aminata Hernandez RN - Reason: Clarify-Other (Comment)) 1015 (Given - Provider: ROSCOE Whitmore)2099 (Due) enoxaparin (LOVENOX) injection 40 mg 40 mg, subCUT, EVERY 24 HOURS, First dose on Mon03/08/21 at 2000, Until Discontinued, Routine, Indication: Prophylaxis of VTE, Dose to be adjusted per facility protocol? Yes 003 (Given - Provider: Sofía Howe RN)1999 (Not Given - Provider: Litzy Dee - Reason: Patient condition)2102 (Given - Provider: Litzy Dee Nurse) 1999 (Refused - Provider: Aminata Hernandez RN) 1999 (Due) gadoxetate (EOVIST) 0.25 mmol/mL (181.43 mg/mL) injection 10 mL (COMPLETED) 10 mL, IV, ONE TIME ONLY, 1 dose, On Mon03/10/21 at 1530, Routine 1543 (Contrast Given - Provider: Lynsey Solomon, RT) iopamidoL (ISOVUE-300) 61 % injection (drawn from multi-use bulk pack) 120 mL (COMPLETED) 120 mL, IV, INTRA-PROCEDURE ONCE, 1 dose, Starting on Mon03/09/21 at 1449, Until Mon03/09/21 at 1504, Routine 1504 (Contrast Given - Provider: Catrina Reid, RT) iopamidoL (ISOVUE-300) 61 % injection (drawn from multi-use bulk pack) 90 mL (COMPLETED) 90 mL, IV, INTRA-PROCEDURE ONCE, 1 dose, Starting on Mon03/10/21 at 1135, Until Mon03/10/21 at 1147, Routine 1147 (Contrast Given - Provider: Catrina Reid, RT) metroNIDAZOLE (FLAGYL) IVPB 500 mg (CANCELED) 500 mg, IV, EVERY 8 HOURS, First dose (after last reorder) on Mon03/09/21 at 0500, Until Discontinued, Routine, Antibiotic Indication: Intra-abdominal infection / Fecal Contamination, Is sepsis suspected? Unlikely 0602 (New Bag - Provider: Sofía Howe RN)0702 (Stopped - Provider: ROSCOE Whitmore)1435 (New Bag - Provider: Candice Anthony RN)1535 (Stopped - Provider: Candice Anthony RN)2119 (New Bag - Provider: Biju Owens, Student Nurse)2219 (Stopped - Provider: Blanca Boo RN) 0438 (New Bag - Provider: Biju Owens, Student Nurse)0538 (Stopped - Provider: Biju Owens, Student Nurse)1511 (New Bag - Provider: ROSCOE Whitmore)1611 (Stopped - Provider: ROSCOE Whitmore)2227 (New Bag - Provider: Aminata Hernandez, RN)2327 (Stopped - Provider: Aminata Hernandez, RN) 0300 (Canceled Entry - Provider: Aminata Hernandez RN) metroNIDAZOLE (FLAGYL) tablet 500 mg (CANCELED) 500 mg, Oral, EVERY 8 HOURS, First dose on Mon03/11/21 at 0745, Until Discontinued, Routine, Antibiotic Indication: Intra-abdominal infection / Fecal Contamination, Is sepsis suspected? Unlikely 0827 (Given - Provider: ROSCOE Whitmore) naloxone (NARCAN) 0.4 mg/mL injection 0.1 mg 0.1 mg, IV, SEE ADMIN INSTRUCTIONS, Starting on Mon03/08/21 at 1909, Until Mon03/12/21 at 0044, Routine peg 3350-electrolytes (GOLYTELY) oral solution 4,000 mL (COMPLETED) 4,000 mL (1 Bottle), Oral, ONE TIME ONLY, 1 dose, On Mon03/09/21 at 1600, Routine 1617 (Given - Provider: Candice Anthony, MAXX) polyethylene glycol (MIRALAX) packet 17 Gram 17 Gram, Oral, DAILY, First dose on Mon03/11/21 at 0915, Until Discontinued, Routine 1015 (Given - Provider: ROSCOE Whitmore) potassium chloride (KLOR-CON) SR tablet 40 mEq (COMPLETED) 40 mEq, Oral, ONE TIME ONLY, 1 dose, On Mon03/08/21 at 2100, Routine 0035 (Given - Provider: Sofía Howe RN) sodium chloride 0.9 % 250 mL flush bag 25 mL 25 mL, IV, SEE ADMIN INSTRUCTIONS, Starting on Mon03/08/21 at 2144, Until Mon03/12/21 at 0044, Routine sodium chloride flush injection 10 mL 10 mL, IV, EVERY 12 HOURS (BlD), First dose on Mon03/09/21 at 0900, Until Discontinued, Routine 0900 (Not Given - Provider: ROSCOE Whitmore - Reason: Other - See Comment - Comment: fluids runnning)2100 (Not Given - Provider: Biju Owens, Student Nurse - Reason: Other - See Comment) 0900 (Not Given - Provider: ROSCOE Whitmore - Reason: Patient off unit)2230 (Given - Provider: Aminata Hernandez RN) 1015 (Given - Provider: ROSCOE Whitmore)2100 (Due) sodium chloride flush injection 10 mL 10 mL, IV, SEE ADMIN INSTRUCTIONS, Starting on Mon03/09/21 at 0000, Until Mon03/12/21 at 0044, Routine sodium chloride flush injection 10 mL () 10 mL, IV, SEE ADMIN INSTRUCTIONS, Starting on Mon03/09/21 at 1449, Until Mon03/09/21 at 1848, Routine 1505 (Given - Provider: Catrina Reid, RT) sodium chloride flush injection 10 mL () 10 mL, IV, SEE ADMIN INSTRUCTIONS, Starting on Mon03/10/21 at 1135, Until Mon03/10/21 at 1534, Routine 1147 (Given - Provider: Catrina Reid, RT) sodium chloride flush injection 20 mL (COMPLETED) 20 mL, IV, ONE TIME ONLY, 1 dose, On Mon03/10/21 at 1530, Routine 1530 (Given - Provider: Lynsey Solomon, RT) Continuous Medication Order 03/09/2021 03/10/2021 03/11/2021 lactated ringers infusion () IV, at 150 mL/hr, CONTINUOUS, Starting on Mon03/08/21 at 1800, Until Mon03/09/21 at 1759, Routine 0341 (New Bag - Provider: Sofía Howe RN)1630 (Stopped - Provider: Candice Anthony, MAXX) lactated ringers infusion (CANCELED) IV, at 125 mL/hr, PRE-PROCEDURE CONTINUOUS, Starting on Mon03/10/21 at 0715, Until Mon03/10/21 at 0926, Routine, Pre-Procedure 0715 (New Bag - Provider: Erica Grover RN)0743 (Paused - Provider: Xavi Sheriff CRNA - Comment: Switch to gravity)0744 (Restarted - Provider: Xavi Sheriff CRNA)0840 (Fluid Volume - Provider: Xavi Sheriff CRNA)0856 (Stopped - Provider: Isa Carty RN) sodium chloride 0.9% infusion 50 mL () IV, at 50 mL/hr, CONTINUOUS, Starting on Mon03/09/21 at 1500, Until Mon03/10/21 at 1459, Routine 1505 (New Bag - Provider: Catrina Reid, RT)1630 (Stopped - Provider: Candice Anthony, MAXX)2014 (Restarted - Provider: Blanca Boo RN) 1152 (Restarted - Provider: ROSCOE Whitmore) 0800 (Stopped - Provider: ROSCOE Whitmore) PRN Medication Order 03/09/2021 03/10/2021 03/11/2021 acetaminophen (TYLENOL) tablet 650 mg 650 mg, Oral, EVERY 6 HOURS PRN, Starting on Mon03/08/21 at 1909, Until Mon03/12/21 at 0044, Other (See Comment), See admin instructions, Routine 0948 (Given - Provider: ROSCOE Whitmore) aluminum - magnesium - simethicone (MYLANTA) 200-200-20 mg/5 mL oral suspension 30 mL 30 mL, Oral, EVERY 2 HOURS PRN, Starting on Mon03/08/21 at 1909, Until Mon03/12/21 at 0044, Indigestion, Routine bisacodyL (DULCOLAX) rectal suppository 10 mg 10 mg, Rectal, DAILY PRN, Starting on Mon03/08/21 at 1909, Until Mon03/12/21 at 0044, Constipation, Routine metoclopramide (REGLAN) 5 mg/mL injection 10 mg 10 mg, IV, EVERY 6 HOURS PRN, Starting on Mon03/08/21 at 1909, Until Mon03/12/21 at 0044, Nausea/Emesis, Routine ondansetron (ZOFRAN) 4 mg/2 mL injection 4 mg 4 mg, IV, EVERY 6 HOURS PRN, Starting on Mon03/08/21 at 1909, Until Mon03/12/21 at 0044, Nausea/Emesis, Routine documented in this encounter Additional Health Concerns Infection Onset Date Last Indicated Resolved Time R/O GI Pathogen 03/09/2021 03/09/2021 03/09/2021 8 :20 PM CDT documented as of this encounter Care Teams [employer] Librarian Relationship Specialty Start Date End Date Cornelio Rayo DO [address] [facility] [address] [place] [id number] PCP - General Internal Medicine 03/08/21 09/11/22 documented as of this encounter
--- OUTSIDE RECORDS SUMMARY | 2024-05-06 09:08 | XMS_ITS | Encounter Summary ---
Author Organization [facility] Address [address] [place] [address] Care Team Providers Care Shoe Stock Associate Name Role Phone Cornelio Rayo DO Primary Care Provider [phone] Encounter Details Date Type Department Care Team (Late st Contact Info) Description 03/12/2021 Chart Note [facility] Surgical [facility] [place] [id number] [place] [address] Laurie Hodges, RN Social History [...] PM CDT documented as of this encounter Progress Notes * Laurie Hodges, RN - 03/12/2021 8:59 AM CDT Educational Booklet: Patient received educational booklet in . Education booklet was reviewed with the patient. Encouraged patient to take notes in the booklet and bring with them to any future pre-surgical appointments and day of surgery. Patient verbalized understanding. yes Bowel prep: Patient was instructed on bowel prep per physician reference: yes Diet, Fluids, NPO and Carb Drink Diet day prior to surgery: Clear Liquid Patient was instructed on a diet prior to surgery. Avoid alcohol consumption the day prior to surgery. Fluids: Patient with no history of diabetes: patient instructed on Pre-Surgery carb drink consumption 3 hours prior to surgery time: yes Patient with history of diabetes: patient was instructed on clear liquids and water up until 3 hours prior to the procedure unless indicated by physician: N/A Patient instructed to be NPO 3 hours prior to surgery start time. Pre-procedure medications: Pre-op oral antibiotics prescribed to patient: yes Neomycin AND Metronidazole (Flagyl) N/A Neomycin AND Erthromycin Other meds N/A Tobacco/Nicotine Cessation Patient instructed to not some day of surgery and that the availability of nicotine and that tobacco products are not permitted in the hospital: yes Infection Prevention Patient instructed on how and when to use the antiseptic soap the night before the procedure and the morning of the procedure: yes documented in this encounter Plan of Treatment Upcoming Encounters Date Type Department Care Team (Late st Contact Info) Description 06/13/2024 10:[address] SUPERVISOR Office Visit [facility] Oncology and Hematology [facility] [address] [facility] [address] [place] [address] Yosef Salmeron MD [address] [facility] [address] [place] [id number] documented as of this encounter Visit Diagnoses Not on filedocumented in this encounter Care Teams Shoe Stock Associate Relationship Specialty Start Date End Date Cornelio Rayo DO [address] [facility] [address] [place] [address] PCP - General Internal Medicine 03/08/21 09/11/22 documented as of this encounter
--- OUTSIDE RECORDS SUMMARY | 2024-05-06 09:08 | XMS_ITS | Encounter Summary ---
Author Organization [facility] Address [address] [place] [address] Care Team Providers Care Cracker And Cookie Machine Operator Name Role Phone Cornelio Rayo DO Primary Care Provider [phone] Reason for Visit * Reason Comments Abdominal Pain Pt presents to ED wi th c/o middle abd pain, radiating to L-side, starting on Monday. Pt denies N/V/D. Reports hard stools, states it feels like something is blocked. Denies urinary symptoms. Denies fevers. * Auth/Cert Specialty Diagnoses / Procedures Referred By Sandy t Referred To Contact Emergency Medicine [facility] Emergency Dept [address] [place] [address] Referral ID Status Reason Start Date Expiration Date Visits Re quested Visits Authorized [id number] 1 1 Encounter Details Date Type Department Care Team (Latest Contact Info) Description 03/08/2021 3:27 PM CDT - 03/11/2021 9:54 PM CDT Hospital Encounter [facility] Trauma and Surgery [address] [place] [address] Dangelo Meyer MD [address] [place] [address] Melvi Sauceda MD [address] [facility] [address] [place] [address] Sam Ross MD [address] [facility] [address] [facility] [place] [address] Kanika Aguillon DO [address] [place] [address] Abdominal pain Discharge Disposition: Home or Self Care Social [...] Sign Reading Time Taken Comments Blood Pressure 127/62 03/11/2021 12:14 PM CDT Pulse 73 03/11/2021 12:14 PM CDT Temperature 36.7 ??C (98.1 ??F) 03/11/2021 12:14 PM C DT Respiratory Rate 16 03/11/2021 12:14 PM CDT Oxygen Saturation 98% 03/11/2021 12:14 PM CDT Inhaled Oxygen Concentration - - Weight 94.8 kg (209 lb) 03/08/2021 12:36 PM CDT Height 172.7 cm (5' 8 ) 03/08/2021 12:36 PM CDT Body Mass Index 31.78 03/08/2021 12:36 PM CDT documented in this encounter Discharge Summaries * Kanika Aguillon DO - 03/12/2021 7:25 AM CDT [facility] Adult Hospitalist Discharge Summary Mary Eral 51 y.o. female 1970 CSN: [id number] Date of Admission: 03/08/2021 Date of Discharge: [...] or both. Signed by: Dr. Kanika Aguillon, Refills: 0 Where to Get Your Medications [...] path known. D/W Dr. Antonieta Soto, PA-C [facility] I can be reached thru secure chat or by calling the office at [phone] I have personally seen and examined the [...] Aguillon DO - 03/10/2021 11:45 AM CDT [facility] Adult Hospitalist Progress Note Admit Date: 03/08/2021 [...] clinical course, suspect 24 to 48 hours. aKnika Aguillon DO * Biju Ownes, Student Nurse - 03/10/2021 5:36 AM CDT [...] Aguillon DO - 03/09/2021 1:00 PM CDT [facility] Adult Hospitalist Progress Note Admit Date: 03/08/2021 [...] Rios NP - 03/08/2021 7:08 PM CDT [facility] Adult Hospitalist Admission H & P Patient [...] denies any anemia, bleeding or easy brusibility SMEARER: patient denies any headache syncope or seizures [...] 4.9 mmol/L COMMENT, BMP POC RN/MD NOTIFIED AFRICAN STUDIES PROFESSOR NAME Tatyana Jacobson CT abd/pelvis: IMPRESSION: Segmental [...] agrees with the above plan. Terry Rios [facility] Contact me via secure chat Associated attestation - Sam Ross MD - 03/09/2021 10:02 AM CDT [facility] Adult Hospitalist Attending Note Patient seen and examined on 03/08/2021. Case discussed with the Nurse Practitioner, Nando Rios. I have reviewed the note as entered [...] discussion with any consultants. Sam Ross MD [facility] documented in this encounter Procedure Notes * Vikas Fung MD - 03/10/2021 9:05 AM CDTAssociated Order(s): COLONOSCOPY REPORT [facility] Endoscopy Patient Name: Mary Earl Procedure Date: [...] of Addenda: [address]; [place] [address] documented in this encounter Consult Notes * Saritha Ballesteros RD - 03/11/2021 9:45 AM CDTAssociated Order(s): IP CONSULT TO NUTRITION SERVICES CLINICAL DIETITIAN PROGRESS NOTE [facility] Nutrition Note 51 y.o. female with [...] to confirm. This was followed by a MAINTENANCE MECHANIC HELPER to r/o ischemia: No evidence to suggest [...] / female : 1970 Date: 03/09/2021 CSN: [id number] Referring Physician: Nando Rios NP PCP: Cornelio [...] exposures. Had trip to a cabin in [facility] in January. No diarrhea following that trip. [...] (BP): Supine) Pulse 72 Temp 97.2 ??F (36.2??C) (Oral) Resp 18 Ht 5' 8 (1.727 [...] situation and coordinating care. Italia Swain PA-C [facility] CC: No ref. provider found [...] supervised the care provided. Case discussed with Sandra Brynn. On exam NAD. Anicteric. Lungs CTA. Car RRR. Abdomen soft, NT/ND. BS nl. Notes generally not tender with symptoms. No significant past medical or family history Etiology of CT findings unclear. Plan colonoscopy. Eventual MRI liver. documented in this encounter OR Notes * Blanca-OP - Erica Grover RN - 03/10/2021 7:13 AM CDT Routine Pre-Anesthesia Protocol for GI Lab Procedures [facility] Approved by: [facility] - Medical Executive Committee Approval Date: 09/24/2020 ORDERS ARE ENTERED ???PER PROTOCOL?? Enter the protocol in the patient???s electronic health record using Puzl: .anestprotocolgilab NURSING ORDERS: Monitoring: o Obtain and [...] appropriate, may confirm POC with: Nursing Only [id number] (this lab can be obtained at no [...] injectable antihyperglycemic agents and glucose is less [id number] mg/dl o NPO patients who have NOT [...] MEDICATION ORDERS - entered by the Pharmacist integrated logistics programs director RESCUE ORDERS - entered by the Pharmacist or the highballer Orders Patient has IV access and UNCONCIOUS, [...] Age: 51 y.o. Sex: female- inpatient CSN: [id number] Procedure(s): COLONOSCOPY Allergies Allergen Reactions ??? Sulfa [...] mL 1 Bottle Oral ONE time only Italia Swain PA ??? iopamidoL (ISOVUE-300) 61 % injection (drawn from multi-use bulk pack) 120 mL 120 mL IV intra-proc ONE time Favio Grant MD ??? sodium chloride flush injection 10 [...] mL Oral every 2 hours PRN Nando Rios NP ??? bisacodyL (DULCOLAX) rectal suppository 10 mg [...] NECESSARY FOLLOW-UP History and physical performed in [place]; tests (ECG, blood work) reviewed. Abnormal Results Found: no Further Testing or Evaluation Required: no Final [place] Center Review: May proceed with procedure/surgery: yes, [...] Gomez RN - 03/08/2021 6:06 PM CDT stranding machine operator Candice notified of ready bed status * [...] from the original note were not included. [facility] ED Adult Female Abdominal Pain Protocol [facility] Approved by: [facility] - Medical Executive Committee Approval Date: 04/23/2020 ORDERS ARE ENTERED ???PER PROTOCOL?? Nursing Orders: o Insert peripheral IV (excessive vomiting or diarrhea) Laboratory Orders: o CBC with diff (KVC4844) o CMP (LAB17) o If female of childbearing age: POC Urine HCG (POC7) or HCG Qualitative urine (IHL689) if sending to lab o Urinalysis with Reflex Microscopy (PNT212) o Serum HCG (if knowingly ) (ZPO467) o Obtain serum lipase (LAB99) if upper abdominal pain o Draw and send extra tubes to lab (ED hold) (TEW1498) Diagnostic Test Orders: o If RUQ pain, [...] 1236), Resp: 20 (03/08/21 1236), Pulse: 94 (03/08/211235), Temp: 98.3 ??F (36.8 ??C) (03/08/211235), Temp src: Oral (03/08/211235), SpO2: 97 % (03/08/211235), Height: 5' 8 (172.7 cm) (03/08/211235), Weight: 94.8 kg (209 lb) (03/08/211235), BMI (Calculated): 31.79 (03/08/211235) No LMP recorded. Physical Exam Vitals and nursing note reviewed. Exam conducted with a manager security and safety present. HENT: Head: Normocephalic and atraumatic. Eyes: [...] 3.2 (*) COMMENT, BMP POC RN/MD NOTIFIED AFRICAN STUDIES PROFESSOR NAME Tatyana Jacobson LIPASE - Normal LIPASE 23 POC POTASSIUM RADIOLOGY: CT ABDOMEN PELVIS W CONTRAST Radiologist Impression IMPRESSION: Segmental colitis of the transverse colon. Given the length of involvement, consider ischemic colitis. Lobulated low-attenuation in hepatic segment IVb is likely focal fat. Recommend MRI to confirm. DICTATION LOCATION: Location 1 - [facility] EKG: PROCEDURES Procedures MEDICAL DECISION MAKING AND PLAN OF CARE --upon initial evaluation, patient was seen and examined by me. Rectal exam performed at bedside with female RN manager security and safety. Labs obtained in triage. Discussed with patient [...] User Index [PK] Dangelo Meyer MD [facility] Summary Statement: 51-year-old female with epigastric [...] Heart Rate: 86 bpm (03/08/211614), Resp: 18 (03/08/211614), Pulse: 85 (03/08/211614), Temp: 98.3 ??F (36.8 ??C) (03/08/21 1236), Temp src: Oral (03/08/21 1236), SpO2: 100 % (03/08/211614) CLINICAL IMPRESSION Final [...] Miscellaneous Notes * Care Plan - Aminata Hernandez RN - 03/11/2021 6:26 AM CDT SHIFT REPORT [...] original note were not included. ? ST[facility] IMS CT MRI Medication and Flush Protocol [facility] Approved by: [facility] - Medical Executive Committee Approval Date: 06/25/2020 ORDERS ARE ENTERED ???PER PROTOCOL?? Enter the protocol in the patient's electronic health record using Puzl: .imagingctmriprotocol Communication Orders: o For ordered imaging [...] oral. May use nasoenteric tube if needed. [place] to 3 months Administer up to 90mL [...] the patient's nurse to CT ; ; [place] ; Administer 45mL of diluted Iohexol oral [...] of NSF cases: o Gadodiamide (Omniscan?? - Jambo) o Gadopentetate dimeglumine (Magnevist?? - Pergunter) o Gadoversetamide (OptiMARK?? - Guerbet) Group II: Agents associated with few, if any, unconfounded cases of NSF: o Gadobenate dimeglumine (MultiHance?? - Medical Simulation Diagnostics) o Gadobutrol (Gadavist?? - [employer]; Gadovist in many countries) o Gadoteric acid (Dotarem?? - Guerbet, Clariscan - Jambo) Gadoteridol (ProHance?? - Medical Simulation Diagnostics) Group III: Agents for which data remains limited regarding NSF risk, but for which few, if any unconfounded cases of NSF have been reported: Gadoxetate disodium (Eovist - Pergunter; Primovist in many countries) * Care Plan - Opal Hernandez GN - 03/10/2021 10:40 AM CDT UNDRESS AND ASSESS FOR ALL ADMISSIONS AND TRANSFERS: Remove all existing dressings and assess all wounds upon admission (unless instructed by physician). Undress and Assess performed by: bedside coworker Opal and bedside coworker Mary. upon transfer to 4306. Devonte Score: Devonte Score: 23 (03/09/21 2100) [...] wound care services. 5. Is a medical imaging tech in place?no If yes, remove device/brace/splint to [...] tears) Wound care consult was not initiated. [facility] Skin Care Injury Prevention and Treatment Protocol [facility] Approved by: [facility] - Medical Executive Committee Approval Date: 05/23/2019 [...] to follow for discharge planning. Melba Sullivan [facility] Zone: [phone] Office: [phone] Day 1 - Current ([place] Pathway: Adult and Obstetrics) Patient, family, or healthcare designee is participating in individual care plan process Outcome: Met Problem: Discharge Planning Goal: Identify discharge needs upon admission and through discharge Description: Outcome: Progressing * Care Plan - Sofía Howe RN - 03/09/2021 4:22 AM CDT IV [...] wound care services. 5. Is a medical imaging tech in place?no If yes, remove device/brace/splint to [...] tears) Wound care consult was not initiated. [facility] Skin Care Injury Prevention and Treatment Protocol [facility] Approved by: [facility] - Medical Executive Committee Approval Date: 05/23/2019 [...] st Contact Info) Description 06/13/2024 10:15 AM MUD TRUCKER Office Visit [facility] Oncology and Hematology - Neymar [address] [facility] [address] [place] [address] Yosef Salmeron MD [address] [facility] [address] [place] [address] documented as of this encounter [...] pending biopsy results. ?? DICTATION LOCATION: Location 1 - [facility] Narrative 03/10/2021 9:47 PM CDT EXAMINATION: Abdominal MRI [...] pending biopsy results. DICTATION LOCATION: Location 1 - [facility] Vikas Fung MD MR ORDERABLES * CEA (03/10/2021 12:46 PM CDT) CEA 2.1 <3.9 ng/mL 03/10/2021 1:53 PM CDT [facility] Blood Venipuncture / Unknown 03/10/2021 12:46 PM CDT 03/10/2021 12:59 PM CDT Narrative [facility] - 03/10/2021 1:53 PM CDT Reference Range: [...] during . Vikas Fung MD CHEMISTRY ORDERABLES [facility]# [id number] [address] [place] [address] * CT CHEST W CONTRAST (03/10/2021 11:45 AM CDT) Anatomical Region Laterality Modality Chest Computed Tomogra phy 03/10/2021 12:0 9 PM CDT Impressions 03/10/2021 1:24 PM CDT IMPRESSION: Indeterminate 8 mm right middle lobe nodule. DICTATION LOCATION: Location 1 - [facility] Narrative 03/10/2021 1:[address] CHEST [...] lobe nodule. DICTATION LOCATION: Location 1 - [facility] Vikas Fung MD CT ORDERABLES * COLONOSCOPY REPORT (03/10/2021 9:05 AM CDT) Narrative Procedure Note Vikas Fung MD - 03/10/2021 9:05 AM CDT [facility] Endoscopy Patient Name: Mary Earl Procedure Date: [...] of Addenda: [address]; [place] [address] Vikas Fung MD GI PROCEDURE ORDERAB LES * PATHOLOGY (03/10/2021 8:15 AM CDT) CASE REPORT Surgical Pathology Report ? Case: [id number] ? Authorizing Provider: ??Vikas Fung MD ?Collected: ? 03/10/2021 08:15 AM ? Ordering Location: ? [facility] [address] ??Received: ?03/10/2021 10:41 AM ? Pathologist: ? Maryann Patel MD ? Specimen: ?Colon, transverse stricture bx ? 9:[address] [facility] ADDENDUM 1 This addendum is issued to [...] nor specific and has limitations. 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 All are submitted in cassette A1. [facility] 9:32 AM [facility] MICROSCOPIC DESCRIPTION The slides are labeled [id number] and Mary Earl. The microscopic findings substantiate the above diagnosis. Immunohistochemical stains for mismatch repair proteins (MMR) are in process, and the results of which will be reported in an addendum. 9:32 AM [facility] OPERATIVE PROCEDURE 1: COLONOSCOPY 9:32 AM [facility] CLINICAL INFORMATION stricture 9:32 AM [facility] COMMENT Special stain and/or immunohistochemical results are interpreted with controls that demonstrate appropriate staining reactions. Note on use of immunocytochemistry reagents: This test was developed and its performance characteristics determined by [facility], Department of Laboratory Medicine. It has not [...] part or completely in the following laboratories: [facility], MD #[id number] [address] [facility], [place] [address] [facility] #[id number] [address] [place] [address] [facility], [place] #[id number] [address] [facility] [place] [address] This report was created with the [employer] voice-activated dictation system. Inherent to this system is the possibility of syntax, grammar, punctuation and other errors that could impact the interpretation of the report. If there are interpretative questions about aspects of this report, please contact the performing pathologist. 9:32 AM MUD TRUCKER [facility] Tissue SPECIMEN FROM COLON / Unknown Collection / Unknown 03/10/2021 8:15 AM CDT 03/10/2021 10:41 AM CDT Comment:stricture Vikas Fung MD PATHOLOGY/CYTOLOGY O [facility]# [id number] [address] [place] [address] * GI PATHOGEN PCR PANEL (03/09/2021 5:53 PM CDT) GI Pathogen PCR panel NOT DETECTED No nucleic acids detected. 03/09/2021 8:20 PM CDT [facility] Stool STOOL SPECIMEN / Unknown Collection / Unknown 03/09/2021 5:53 PM CDT 03/09/2021 6:07 PM CDT Narrative [facility] - 03/09/2021 8:20 PM CDT The Film [...] histolytica Giardia duodenalis [place] ANGELO MICROBIOLOGY - [facility] ORDERABLES [facility]# [id number] [address] [facility] [place] [address] * CTA ABD PELVIS W AND/OR WO CONTRAST (03/09/2021 3:04 PM CDT) Anatomical Region Laterality Modality Abdomen Computed Tomogra phy 03/09/2021 3:36 PM CDT Impressions 03/10/2021 8:05 AM CDT IMPRESSION: No evidence to suggest hemodynamic compromise to the bowel as described above. Right adnexal cyst. If clinically indicated further evaluation with ultrasound may be beneficial. DICTATION LOCATION: Location 1 [facility] The examination was performed with the adjustment [...] x 3.5 cm is present. Procedure Note Melgoza, Moe, MD - 03/10/2021 CTA ABDOMEN AND PELVIS [...] be beneficial. DICTATION LOCATION: Location 1 - [facility] The examination was performed with the adjustment of mA according to the patient size and/or the use of Iterative Reconstruction Technique. Sam Ross MD CT ORDERABLES * (ABNORMAL) HEPATIC FUNCTION PANEL (03/09/2021 7:34 AM CDT) TOTAL PROTEIN 6.5(L) 6.7 - 8.6 g/dL 03/09/2021 10:34 AM CDT [facility] - [facility] ALBUMIN 4.4 3.5 - 5.2 g/dL 03/09/2021 10:34 AM CDT [facility] - [facility] BILIRUBIN TOTAL 0.5 0.3 - 1.2 mg/dL 03/09/2021 10:34 AM CDT [facility] BILIRUBIN DIRECT <0.2 <0.4 mg/dL 03/09/20 10:34 AM CDT [facility] ALKALINE PHOSPHATASE 87 35 - 104 U/L 03/09/2021 10:34 AM CDT [facility] AST 11 <33 U/L 03/09/2021 10:34 AM CDT [facility] ALT 12 <34 U/L 03/09/2021 10:34 AM CDT [facility] Blood Venipuncture / Unknown 03/09/2021 7:34 AM CDT 03/09/2021 7:54 AM CDT Narrative [facility] - 03/09/2021 10:34 AM CDT Samples containing indocyanine green cause interferences on Total and/or Direct Bilirubin and must not be measured. [place] ANGELO CHEMISTRY ORDERABLES Performing Organization Address City/[facility]/ZIP Co de Phone Number [facility] CLIA# [id number] [address] [place] [address] * (ABNORMAL) C-REACTIVE PROTEIN (03/09/2021 7:34 AM CDT) CRP 9.6(H) <5.0 mg/L 03/09/2021 10:34 AM CDT [facility] Blood Venipuncture / Unknown 03/09/2021 7:34 AM CDT 03/09/2021 7:54 AM CDT [place] ANGELO CHEMISTRY ORDERABLES [facility]# [id number] [address] [place] [address] * (ABNORMAL) BASIC METABOLIC PANEL (03/09/2021 7:34 AM CDT) SODIUM 143 136 - 145 mmol/L 03/09/2021 8:35 AM CDT [facility] POTASSIUM 3.8 3.5 - 5.0 mmol/L 03/09/2021 8:35 AM CDT [facility] CHLORIDE 106 98 - 107 mmol/L 03/09/2021 8:35 AM CDT [facility] CO2 23 22 - 29 mmol/L 03/09/2021 8:35 AM T [facility] CALCIUM 9.0 8.6 - 10.2 mg/dL 03/09/2021 8:35 AM CDT [facility] BUN 8 6 - 20 mg/dL 03/09/2021 8:35 AM CDT [facility] CREATININE 0.62 0.51 - 0.95 mg/dL 03/09/2021 8:35 AM CDT [facility] GLUCOSE 109(H) 74 - 99 mg/dL 03/09/2021 8:35 AM CDT [facility] [place] GFR >60 mL/min/1.7 3 sq meter 03/09/2021 8:35 AM T [facility] - [facility] Comment: eGFR has not been validated for [...] 3 sq meter 03/09/2021 8:35 AM CDT [facility] - . [place] ANION GAP 14 8 - 16 mmol/L 03/09/2021 8:35 AM T [facility] - . [facility] Blood Venipuncture / Unknown 03/09/2021 7:34 AM CDT 03/09/2021 7:54 AM CDT Nando Rios NP CHEMISTRY ORDERABLE S [facility] - [facility] CLIA# [id number] [address] [facility] [place] [address] * CBC WITH DIFFERENTIAL (03/09/2021 7:34 AM CDT) [facility] WBC 5.4 4.0 - 9.8 K/uL 03/09/2021 8:06 AM CDT [facility] RBC 4.09 3.90 - 4.90 M/uL 03/09/2021 8:06 AM CDT [facility] HEMOGLOBIN 11.9 11.8 - 14.8 g/dL 03/09/2021 8:06 AM CDT [facility] HEMATOCRIT 37.4 35.5 - 44.0 % 03/09/2021 8:06 AM CDT [facility] MCV 91.4 82.0 - 99.0 fL 03/09/2021 8:06 AM CDT [facility] MCH 29.1 27.2 - 32.6 pg 03/09/2021 8:06 AM CDT [facility] MCHC 31.8 31.5 - 35.5 g/dL 03/09/2021 8:06 AM CDT [facility] RDW 13.0 11.5 - 14.5 % 03/09/2021 8:06 AM CDT [facility] RDW-STDEV 43.8 37.1 - 48.7 fL 03/09/2021 8:06 AM CDT [facility] PLATELETS 198 140 - 350 K/uL 03/09/2021 8:06 AM CDT [facility] MPV 10.1 9.3 - 12.4 fL 03/09/2021 8:06 AM CDT [facility] NEUTROPHILS 60 % 03/09/2021 8:06 AM CDT [facility] LYMPHOCYTES 31 % 03/09/2021 8:06 AM CDT [facility] MONOCYTES 8 % 03/09/2021 8:06 AM CDT [facility] EOSINOPHILS 1 % 03/09/2021 8:06 AM CDT [facility] BASOPHILS 0 % 03/09/2021 8:06 AM CDT [facility] - . [facility] IMMATURE GRANULOCYTES 0 % 03/09/2021 8:06 AM CDT [facility] NEUTROPHIL ABSOLUTE 3.23 1.90 - 7.00 K/uL 03/09/2021 8:06 AM CDT [facility] - . [facility] LYMPHOCYTE ABSOLUTE 1.67 0.70 - 4.50 K/uL 03/09/2021 8:06 AM CDT [facility] MONOCYTE ABSOLUTE 0.42 0.10 - 1.30 K/uL 03/09/2021 8:06 AM CDT [facility] - [facility] EOSINOPHIL ABSOLUTE 0.05 0.00 - 0.70 K/uL 03/09/2021 8:06 AM CDT [facility] BASOPHILS ABSOLUTE 0.02 0.00 - 0.20 K/uL 03/09/2021 8:06 AM CDT [facility] - . [facility] IMMATURE GRANULOCYTES ABSOLUTE 0.02 0.00 - 0.03 K/uL 03/09/2021 8:06 AM CDT [facility] - . [facility] Blood Venipuncture / Unknown 03/09/2021 7:34 AM CDT 03/09/2021 7:54 AM CDT Nando Rois NP HEMATOLOGY ORDERABL ES [facility]# [id number] [address] [place] [address] * CT ABDOMEN PELVIS W CONTRAST (03/08/2021 5:20 PM CDT) Anatomical Region Laterality Modality Abdomen Computed Tomogra phy 03/08/2021 5:20 PM CDT Impressions 03/08/2021 5:42 PM CDT IMPRESSION: ?? Segmental colitis of the transverse colon. Given the length of involvement, consider ischemic colitis. Lobulated low-attenuation in hepatic segment IVb is likely focal fat. Recommend MRI to confirm. DICTATION LOCATION: Location 1 - [facility] Narrative 03/08/2021 5:[address] ABDOMEN [...] to confirm. DICTATION LOCATION: Location 1 - [facility] Dangelo Meyer MD CT ORDERABLES * (ABNORMAL) POC ELECTROLYTES/BMP (03/08/2021 4:21 PM CDT) [facility] POTASSIUM POC 3.2(L) 3.5 - 4.9 mmol/L 03/08/2021 4:21 PM CDT [facility] COMMENT, BMP POC RN/ NOTIFIED 03/08/2021 4:21 PM CDT [facility] AFRICAN STUDIES PROFESSOR NAME POC Tatyana Jacobson 03/08/2021 4:21 PM CDT [facility] Blood 03/08/2021 4:21 PM CDT 03/08/2021 4:22 PM CDT Dangelo Meyer MD POINT OF CARE TESTIN G [id number] [address] [facility] [place] [address] * POC OCCULT BLOOD 1 CARD (03/08/2021 4:00 PM CDT) Pathologist [facility] [place] OCCULT BLOOD 1 CARD POC Negative Negative 03/08/2021 4:00 PM CDT [facility] LABORATORY SERVICES - [facility] AFRICAN STUDIES PROFESSOR NAME POC CHINO MEDEIROS 03/08/2021 4:00 PM CDT [facility]ORATORY SERVICES - . [facility] Stool STOOL SPECIMEN / Unknown 03/08/2021 4:00 PM CDT 03/10/2021 8:28 AM CDT Dangelo Meyer MD POINT OF CARE TESTIN G [facility] LABORATORY SERVICES - [facility] CLIA# [id number] [address] [place] [address] * (ABNORMAL) URINALYSIS WITH REFLEX MICROSCOPIC (03/08/2021 1:24 PM CDT) COLOR UA Yellow Pale to Dark Yellow 03/08/2021 1:40 PM CDT [facility]ORATORY SERVICES - . [facility] CLARITY UA Clear Clear 03/08/2021 1:40 PM CDT [facility]AT[facility] SERVICES - . [facility] SPECIFIC GRAVITY UA 1.013 1.003 - 1.035 03/08/2021 1:40 PM CDT [facility]ATORY SERVICES - . [facility] PH UA 5.0 5.0 - 8.0 03/08/2021 1:40 PM CDT [facility] - . [facility] LEUKOCYTE ESTERASE UA Negative Negative 03/08/2021 1:40 PM CDT [facility] - . [facility] NITRITE UA Negative Negative 03/08/2021 1:40 PM CDT [facility] - . [facility] PROTEIN UA Negative Negative 03/08/2021 1:40 PM CDT [facility] - . [facility] GLUCOSE UA Negative Negative 03/08/2021 1:40 PM CDT [facility] - . [facility] KETONES UA Trace(A) Negative 03/08/2021 1:40 PM CDT [facility] - . [facility] UROBILINOGEN UA Normal <2.0 mg/dL 1:40 PM CDT [facility] - . [place] BILIRUBIN UA Negative Negative 03/08/2021 1:40 PM CDT [facility] - . [place] BLOOD UA 1+(A) Negative 03/08/2021 1:40 PM CDT [facility] LABORATORY SERVICES - [facility] WBC UA 0-2 0 - 2 /hpf 03/08/2021 1:40 PM CDT [facility] LABORATORY SERVICES - [facility] RBC UA 0-2 0 - 2 /hpf 03/08/2021 1:40 PM CDT [facility]ORATORY SERVICES - [facility] BACTERIA UA Negative Negative /hpf 03/08/2021 1:40 PM CDT [facility] LABORATORY SERVICES - [facility] EPITHELIAL CELLS, URINE -25(A) 0 - 5 /hpf 03/08/2021 1:40 PM CDT [facility]ORAT[facility] SERVICES - [facility] Urine URINE SPECIMEN OBTAINED BY CLEAN CATCH PROCEDURE / Unknown Collection / Unknown 03/08/2021 1:24 PM CDT 03/08/2021 1:29 PM CDT Dangelo Meyer MD URINE ORDERABLES [facility] CLIA# [id number] [address] [place] [place] [address] * LIPASE (03/08/2021 1:15 PM CDT) LIPASE 23 13 - 60 U/L 03/08/2021 4:07 PM CDT [facility] LABORATORY SERVICES [facility] Blood Venipuncture / Unknown 03/08/2021 1:15 PM CDT 03/08/2021 1:19 PM CDT Dangelo Meyer MD CHEMISTRY ORDERABLES [facility] bCODE [facility] CLIA# [id number] [address] [place] [address] * (ABNORMAL) COMPREHENSIVE METABOLIC PANEL (03/08/2021 1:15 PM CDT) SODIUM 138 136 - 145 mmol/L 03/08/2021 1:54 PM CDT [facility] LABORATORY SERVICES [facility] POTASSIUM 03/08/2021 1:54 PM CDT [facility] Comment:Test cannot be perfo rmed due to gross hemolysis present. Redraw if indicated. CHLORIDE 101 98 - 107 mmol/L 03/08/2021 1:54 PM T [facility] LABORATORY SERVICES [facility] CO2 22 22 - 29 mmol/L 03/08/2021 1:54 PM T [facility] LABORATORY SERVICES - [facility] CALCIUM 9.8 8.6 - 10.2 mg/dL 03/08/2021 1:54 PM T [facility] LABORATORY SERVICES - . [facility] BUN 8 6 - 20 mg/dL 03/08/2021 1:54 PM T [facility]ORATORY SERVICES - . [facility] CREATININE 0.65 0.51 - 0.95 mg/dL 03/08/2021 1:[address] [facility] GLUCOSE 111(H) 74 - 99 mg/dL 03/08/2021 1:[address] [facility] LABORATORY SERVICES - [facility] TOTAL PROTEIN 8.4 6.7 - 8.6 g/dL 03/08/2021 1:[address] [facility] LABORATORY [facility] - . [facility] ALBUMIN 4.6 3.5 - 5.2 g/dL 03/08/2021 1:[address] [facility] LABORATORY [facility] - . [facility] BILIRUBIN TOTAL 0.6 0.3 - 1.2 mg/dL 03/08/2021 1:54 PM [facility] - [facility] ALKALINE PHOSPHATASE 03/08/2021 1:[address] [facility] LABORATORY SERVICES - [facility] Comment:Test cannot be perfo rmed due to gross hemolysis present. Redraw if indicated. AST 42(H) <33 U/L 03/08/2021 1:[address] [facility] LABORATORY SERVICES [facility] Comment:Hemolysis present. R esult may be falsely elevated. ALT 16 <34 U/L 03/08/2021 1:[address] [facility] Comment:Hemolysis present. R esult may be falsely elevated. GFR >60 mL/min/1.7 3 sq meter 03/08/2021 1:[address] [facility] LABORATORY SERVICES [facility] Comment: eGFR has not been validated for [...] 3 sq meter 03/08/2021 1:54 PM CDT [facility] LABORATORY SERVICES [facility] ANION GAP 15 8 - 16 mmol/L 03/08/2021 1:54 PM CDT [facility] Blood Venipuncture / Unknown 03/08/2021 1:15 PM CDT 03/08/2021 1:19 PM CDT [facility] LABORATORY SERVICES - [facility] - 03/08/2021 1:54 PM CDT Samples containing indocyanine green cause interferences on Total and/or Direct Bilirubin and must not be measured. Dangelo Meyer MD CHEMISTRY ORDERABLES [facility] bCODE [facility]# [id number] [address] [facility] [place] [address] * (ABNORMAL) CBC WITH DIFFERENTIAL (03/08/2021 1:15 PM CDT) WBC 7.1 4.0 - 9.8 K/uL 03/08/2021 1:28 PM CDT [facility] RBC 4.99(H) 3.90 - 4.90 M/uL 03/08/2021 1:28 PM CDT [facility] HEMOGLOBIN 14.8 11.8 - 14.8 g/dL 03/08/2021 1:28 PM CDT [facility] HEMATOCRIT 45.6(H) 35.5 - 44.0 % 03/08/2021 1:28 PM CDT [facility] MCV 91.4 82.0 - 99.0 fL 03/08/2021 1:28 PM CDT [facility] - . [facility] MCH 29.7 27.2 - 32.6 pg 03/08/2021 1:28 PM CDT [facility] LABORAT[facility] SERVICES - . [facility] MCHC 32.5 31.5 - 35.5 g/dL 03/08/2021 1:28 PM CDT [facility] - [facility] RDW 13.1 11.5 - 14.5 % 03/08/2021 1:28 PM CDT [facility] - . [facility] RDW-STDEV 44.0 37.1 - 48.7 fL 03/08/2021 1:28 PM CDT [facility] - . [facility] PLATELETS 328 140 - 350 K/uL 03/08/2021 1:28 PM CDT [facility] - . [facility] MPV 10.9 9.3 - 12.4 fL 03/08/2021 1:28 PM CDT [facility] NEUTROPHILS 61 % 03/08/2021 1:28 PM CDT [facility] LYMPHOCYTES 31 % 03/08/2021 1:28 PM CDT [facility] MONOCYTES 6 % 03/08/2021 1:28 PM CDT [facility] EOSINOPHILS 0 % 03/08/2021 1:28 PM CDT [facility] BASOPHILS 1 % 03/08/2021 1:28 PM CDT [facility] IMMATURE GRANULOCYTES 0 % 03/08/2021 1:28 PM CDT [facility] NEUTROPHIL ABSOLUTE 4.32 1.90 - 7.00 K/uL 03/08/2021 1:28 PM CDT [facility] LYMPHOCYTE ABSOLUTE 2.21 0.70 - 4.50 K/uL 03/08/2021 1:28 PM CDT [facility] MONOCYTE ABSOLUTE 0.44 0.10 - 1.30 K/uL 03/08/2021 1:28 PM CDT [facility] EOSINOPHIL ABSOLUTE 0.03 0.00 - 0.70 K/uL 03/08/2021 1:28 PM CDT [facility] BASOPHILS ABSOLUTE 0.04 0.00 - 0.20 K/uL 03/08/2021 1:28 PM CDT [facility] LABORATORY SERVICES - [facility] IMMATURE GRANULOCYTES ABSOLUTE 0.01 0.00 - 0.03 K/uL 03/08/2021 1:28 PM CDT [facility] LABORATORY SERVICES - [facility] Blood Venipuncture / Unknown 03/08/2021 1:15 PM CDT 03/08/2021 1:19 PM CDT Dangelo Meyer MD HEMATOLOGY ORDERABLE S [facility] LABORATORY SERVICES - [facility] CLIA# [id number] [address] [facility] [place] [address] documented in this encounter Visit Diagnoses Diagnosis Abdominal pain- Primary Abdominal pain, unspecified site Acute colitis Other and unspecified noninfectious gastroenteritis and colitis Hypokalemia Hypopotassemia Acute colitis Other and unspecified noninfectious gastroenteritis and colitis Colonic mass Other specified disorder of intestines Liver lesion Other specified disorders of liver Malignant neoplasm of transverse colon documented in [...] 1909, Until Mon03/12/21 at 0044, Constipation, Routine ciprofloxacin in dextrose 5% (CIPRO) IVPB 400 mg 400 mg, IV, EVERY 12 HOURS (BlD), First dose (after last modification) on Mon03/09/21 at 0100, Until Discontinued, Routine, Antibiotic Indication: Intra-abdominal infection / Fecal Contamination, Is sepsis suspected? Unlikely New Bag 03/11/2021 12:37 AM CDT 400 mg 200 mL/hr New Bag 03/10/2021 2:06 PM CDT 400 mg 200 mL/hr New Bag 03/10/2021 12:07 AM CDT 400 mg 200 mL/hr dextrose 5 % in water 250 mL [...] AM CDT 40 mg A bdominal Tissue gadoxetate (EOVIST) 0.25 mmol/mL (181.43 mg/mL) injection 10 mL 10 mL, IV, ONE TIME ONLY, 1 dose, On Mon03/10/21 at 1530, Routine Contrast Given 03/10/2021 3:43 PM CDT 10 mL iopamidoL (ISOVUE-300) 61 % injection (drawn from multi-use bulk pack) 120 mL 120 mL, IV, INTRA-PROCEDURE ONCE, 1 dose, Starting on Mon03/08/21 at 1706, Until Mon03/08/21 at 1720, Routine Contrast Given 03/08/2021 5:20 PM CDT 120 mL iopamidoL (ISOVUE-300) 61 % injection (drawn from multi-use bulk pack) 120 mL 120 mL, IV, INTRA-PROCEDURE ONCE, 1 dose, Starting on Mon03/09/21 at 1449, Until Mon03/09/21 at 1504, Routine Contrast Given 03/09/2021 3:04 PM CDT 120 mL iopamidoL (ISOVUE-300) 61 % injection (drawn from multi-use bulk pack) 90 mL 90 mL, IV, INTRA-PROCEDURE ONCE, 1 dose, Starting on Mon03/10/21 at 1135, Until Mon03/10/21 at 1147, Routine Contrast Given 03/10/2021 11:47 AM CDT 90 mL lactated ringers infusion IV, at 150 mL/hr, CONTINUOUS, Starting on Mon03/08/21 at 1800, Until Mon03/09/21 at 1759, Routine New Bag 03/09/2021 3:41 AM CDT 150 mL/hr New Bag 03/08/2021 7:54 PM CDT 150 mL/hr New Bag 03/08/2021 6:01 PM CDT 150 mL/hr lactated ringers infusion IV, at 125 mL/hr, PRE-PROCEDURE CONTINUOUS, Starting on Mon03/10/21 at 0715, Until Mon03/10/21 at 0926, Routine, Pre-Procedure Restarted 03/10/2021 7:44 AM CDT New Bag 03/10/2021 7:15 AM CDT 125 mL/hr metoclopramide (REGLAN) 5 mg/mL injection 10 mg 10 mg, IV, EVERY 6 HOURS PRN, Starting on Mon03/08/21 at 1909, Until Mon03/12/21 at 0044, Nausea/Emesis, Routine metroNIDAZOLE (FLAGYL) IVPB 500 mg 500 mg, IV, ONE TIME ONLY, 1 dose, On Mon03/08/21 at 1800, Routine, Antibiotic Indication: Intra-abdominal infection / Fecal Contamination, Is sepsis suspected? Unlikely New Bag 03/08/2021 6:02 PM CDT 500 mg 100 mL/hr metroNIDAZOLE (FLAGYL) IVPB 500 mg 500 mg, IV, EVERY 8 HOURS, First dose (after last reorder) on Mon03/09/21 at 0500, Until Discontinued, Routine, Antibiotic Indication: Intra-abdominal infection / Fecal Contamination, Is sepsis suspected? Unlikely New Bag 03/10/2021 10:27 PM CDT 500 mg 100 mL/hr New Bag 03/10/2021 3:11 PM CDT 500 mg 100 mL/hr New Bag 03/10/2021 4:38 AM CDT 500 mg 100 mL/hr metroNIDAZOLE (FLAGYL) tablet 500 mg 500 mg, Oral, EVERY 8 HOURS, First dose on Estefany 03/11/21 at 0745, Until Discontinued, Routine, Antibiotic Indication: Intra-abdominal infection / Fecal Contamination, Is sepsis suspected? Unlikely Given 03/11/2021 8:27 AM CDT 500 mg naloxone (NARCAN) 0.4 mg/mL injection 0.1 mg 0.1 mg, IV, SEE ADMIN INSTRUCTIONS, Starting on Mon03/08/21 at 1909, Until Mon03/12/21 at 0044, Routine ondansetron (ZOFRAN) 4 mg/2 mL injection 4 mg 4 mg, IV, EVERY 6 HOURS PRN, Starting on Mon03/08/21 at 1909, Until Mon03/12/21 at 0044, Nausea/Emesis, Routine peg 3350-electrolytes (GOLYTELY) oral solution 4,000 mL 4,000 mL (1 Bottle), Oral, ONE TIME ONLY, 1 dose, On Mon03/09/21 at 1600, Routine Given 03/09/2021 4:17 PM CDT 4,000 mL polyethylene glycol (MIRALAX) packet 17 Gram 17 Gram, Oral, DAILY, First dose on Estefany 03/11/21 at 0915, Until Discontinued, Routine Given 03/11/2021 10:15 AM CDT 17 Grams potassium chloride (KLOR-CON) SR tablet 40 mEq 40 mEq, Oral, ONE TIME ONLY, 1 dose, On Mon03/08/21 at 2100, Routine Given 03/09/2021 12:35 AM CDT 40 mEq sodium chloride 0.9 % 250 mL flush bag 25 mL 25 mL, IV, SEE ADMIN INSTRUCTIONS, Starting on Mon03/08/21 at 2144, Until Mon03/12/21 at 0044, Routine sodium chloride 0.9% bolus solution 1,000 mL 1,000 mL, IV, ONE TIME ONLY, 1 dose, On Mon03/08/21 at 1615, at 2,000 mL/hr, Administer over 30 Minutes, Stat Started by Another Clinician 03/08/2021 4:15 PM CDT 1,000 mL 2000 mL/hr sodium chloride 0.9% infusion 50 mL IV, at 50 mL/hr, CONTINUOUS, Starting on Mon03/09/21 at 1500, Until Mon03/10/21 at 1459, Routine Restarted 03/10/2021 11:52 AM CDT 50 mL/hr Restarted 03/09/2021 8:14 PM CDT 50 mL/hr New Bag 03/09/2021 3:05 PM CDT 50 mL 50 mL/hr sodium chloride flush injection 10 mL 10 mL, IV, ONE TIME ONLY, 1 dose, On Mon03/08/21 at 1715, Routine Given 03/08/2021 5:20 PM CDT 10 mL sodium chloride flush [...] at 1449, Until Mon03/09/21 at 1848, Routine Given 03/09/2021 3:05 PM CDT 10 mL sodium chloride flush injection 10 mL 10 mL, IV, SEE ADMIN INSTRUCTIONS, Starting on Mon03/10/21 at 1135, Until Mon03/10/21 at 1534, Routine Given 03/10/2021 11:47 AM CDT 10 mL sodium chloride flush injection 20 mL 20 mL, IV, ONE TIME ONLY, 1 dose, On Mon03/10/21 at 1530, Routine Given 03/10/2021 3:30 PM CDT 20 mL documented in this encounter Active and Recently [...] Until Discontinued, Routine 0036 (Given - Provider: oSfía Howe RN)0900 (Refused - Provider: ROSCOE Whitmore)2099 (Refused - Provider: Litzy Dee) 0900 (Not Given - Provider: ROSCOE Whitmore [...] RN)1999 (Not Given - Provider: Litzy Dee Nurse - Reason: Patient condition)2102 (Given - Provider: [...] Provider: ROSCOE Whitmore)2227 (New Bag - Provider: Amintaa Hernandez, RN)2327 (Stopped - Provider: Aminata Hernandez, [...] 1600, Routine 1617 (Given - Provider: Candice Anthony RN) polyethylene glycol (MIRALAX) packet 17 Gram 17 Gram, Oral, DAILY, First dose on Estefany 03/11/21 at 0915, Until Discontinued, Routine 1015 (Given [...] 1848, Routine 1505 (Given - Provider: Catrina L Mowrey, RT) sodium chloride flush injection 10 mL [...] Routine 0341 (New Bag - Provider: Sofía Howe, MAXX)1630 (Stopped - Provider: Candice Anthony RN) lactated ringers infusion (CANCELED) IV, at 125 mL/hr, PRE-PROCEDURE CONTINUOUS, Starting on Mon03/10/21 at 0715, Until Mon03/10/21 at 0926, Routine, Pre-Procedure 0715 (New Bag - Provider: Erica Grover, MAXX)0743 (Paused - Provider: Xavi Sheriff CRNA - Comment: Switch to gravity)0744 (Restarted - Provider: Xavi Sheriff CRNA)0840 (Fluid Volume - Provider: Xavi Sheriff CRNA)0856 (Stopped - Provider: Isa Carty, MAXX) sodium chloride 0.9% infusion 50 mL () IV, at 50 mL/hr, CONTINUOUS, Starting on Mon03/09/21 at 1500, Until Mon03/10/21 at 1459, Routine 1505 (New Bag - Provider: Catrina Reid, RT)1630 (Stopped - Provider: Candice Anthony RN)2014 (Restarted - Provider: Blanca Boo RN) 1152 [...] documented as of this encounter Care Teams Cracker And Cookie Machine Operator Relationship Specialty Start Date End Date Cornelio Rayo DO [address] [facility] [address] [facility] [address] [place] [address] PCP - General Internal Medicine 03/08/21 09/11/22 documented as of this encounter
--- OUTSIDE RECORDS SUMMARY | 2024-05-06 09:08 | XMS_ITS | Encounter Summary ---
Author Organization [facility] Address [address] [facility] Attn: Epic Prelude ADT [place] [address] Care Team Providers Care Rn Referral Name Role Phone Cornelio Rayo DO Primary Care Provider [phone] Encounter Details Date Type Department Care Team (Latest Contact Info) Description 03/08/2021 Travel Social History Tobacco Use Types Packs/Day [...] st Contact Info) Description 06/13/2024 10:15 AM BALLET TEACHER Office Visit [facility] Oncology and Hematology - [place] [address] [facility] [place] [address] Yosef Salmeron MD [address] [facility] [address] [place] [address] documented as of this encounter Visit Diagnoses Not on filedocumented in this encounter Care Teams Rn Referral Relationship Specialty Start Date End Date Cornelio Rayo DO [address] [place] [address] PCP - General Internal Medicine 03/08/21 09/11/22 documented as of this encounter
== END 2024-04-29 07:37 | disposition home or self-care (01) ==
LOC: CHSIMG 07:37
PROVIDERS: PCP Internal Medicine; Visit Provider Clinical Nurse Specialist
DX: Z12.31 Encounter for screening mammogram for malignant neoplasm of breast (principal)
CPT/HCPCS: 77063; 77067

== ENCOUNTER 2024-06-06 08:33 | Outpatient (CLI) | payer BC, SELFPAY ==
--- NOTE | ~2024-06-06 | CT_ITS ---
EXAMINATION: CT abdomen pelvis w con DATE: 06/06/2024 09:14 INDICATION: Malignant neoplasm of the colon TECHNIQUE: Computed tomography (CT) of the abdomen and pelvis was performed with 100 mL Omnipaque-350 intravenous contrast. Automated exposure control and iterative reconstruction technique were employe d. The dose-length product was 1361.33 mGy-cm. COMPARISON: CT dated 05/22/2023 FINDINGS: Lung bases are clear. Heart size is normal. No pericardial or pleural effusion. Diffuse hepatic steat osis. The gallbladder, spleen, pancreas, bilateral adrenal glands and kidneys are normal. There are f ew scattered colonic diverticula without adjacent inflammatory stranding to suggest diverticulitis. A nastomotic suture line near the splenic flexure of the colon, presumably for resection of a reported colon cancer. No evident residual/locally recurrent disease. Small bowel and appendix are normal. Vincenzo dder, anteverted uterus and left ovary are unremarkable. Unchanged 3.2 cm right adnexal cyst. No free intraperitoneal gas or fluid. No pathologically enlarged abdominal or pelvic lymphadenopathy. 25 deg ree upper lumbar levoscoliosis with moderate lumbar and lower thoracic spondylosis. IMPRESSION: 1. Postoperative change of prior partial colectomy in the region of the splenic flexure of the colon presumably for resection of a reported colon cancer with no evident residual, locally recurrent or me tastatic disease. Reviewed, dictated and finalized at location B. ULTING PRACTICE DIRECTOR IMPRESSION: 1. Postoperative change of prior partial colectomy in the region of the splenic flexure of the colon presumably for resection of a reported colon cancer with no evident residual, locally recurrent or metastatic disease.
--- OUTSIDE RECORDS SUMMARY | 2024-06-06 08:56 | XMS_ITS | Clinical Summary ---
Author Organization [facility] Address [facility] [place] [address] Care Team Providers Care Foxpro Developer Name Role Phone Julien Doan DO Primary Care Provider [phone] Allergies Active Allergy Reactions Criticality Noted Date Comments Chlorhexidine Hives High 03/26/2021 Codeine Nausea And Vomiting Low 03/22/2021 Meperidine Nausea And Vomiting Low 03/22/2021 Nitrofurantoin Monohyd/M-Cryst Fever Medium 12/04/2023 Body aches as well Sulfa (Sulfonamide Antibiotics) Swelling Medium 10/24/2011 Unclassified Drug Nausea And Vomiting 10/24/2011 Pt reports does not tolerate anesthesia and pain medications well. Medications FA-vit Ygxxf-[id number]-vi tamin D3 0.8-2,000 mg-unit tablet Take by [...] Department Care Team Description 03/21/2024 1:00 PM PROTECTION MANAGER Diagnostic [facility] Orthopaedic Surgery [address] [facility] 6th [place] [address] [place] [address] Shabbir Coffey MD Paresthesia and pain of extremity (Primary Dx); Spinal deformity; Lumbar pain 03/14/2024 9:30 AM PROTECTION MANAGER Office Visit [facility] Orthopaedic Surgery [address] [place] [address] 6[address] [place] [address] [place] [address] Francis Bhatti MD Spinal deformity (Primary Dx); Cervical pain; Lumbar pain; Back pain with radiation; Degeneration of intervertebral disc of lumbar region, unspecified whether pain present; Degenerative disc disease, cervical; Malignant neoplasm of transverse colon (CMS/HCC) (HCC) 03/14/2024 8:38 AM PROTECTION MANAGER - 03/14/2024 11:59 PM PROTECTION MANAGER Hospital Encounter [facility] [address] [place] [id number] Spinal deformity Discharge Disposition: Discharge to home or self care from Last 3 Months Surgical History Surgery [...] 108 kg (238 lb) 03/14/2024 9:13 AM PROTECTION MANAGER Height 168.9 cm (5' 6.5 ) 03/14/2024 9:13 AM PROTECTION MANAGER Body Mass Index 37.84 03/14/2024 9:13 AM PROTECTION MANAGER Plan of Treatment Health Maintenance Due Date [...] Read Routine (OP Routine) 03/14/2024 9:00 AM PROTECTION MANAGER Spinal deformity from Last 3 Months Results * XR Scoliosis 6 or More Views (03/14/2024 9:00 AM PROTECTION MANAGER) Anatomical Region Laterality Modality Spine N/A Computed Radiogr aphy 03/14/2024 9:10 AM PROTECTION MANAGER Impressions 03/14/2024 9:10 AM PROTECTION MANAGER 1. ??Biconvex thoracolumbar scoliosis and decreased thoracic kyphosis with neutral truncal balance and mild right superior pelvic obliquity Electronically signed by: Ana Luisa Alves MD Narrative 03/14/2024 9:10 AM PROTECTION MANAGER EXAMINATION: XR SCOLIOSIS ??6 OR MORE VIEWS [...] MD IMG XR PROCEDURES Final Res ult from Last 3 Months Insurance [facility] Care Teams Foxpro Developer Relationship Specialty Start Date End Date Julien Doan DO [address] [facility] [place] [address] PCP - General Internal Medicine 02/13/24
--- OUTSIDE RECORDS SUMMARY | 2024-06-06 08:57 | XMS_ITS | Referral Summary ---
Author Organization [facility] Address [address] [place] [address] Care Team Providers Care Prop Making Supervisor Name Role Phone Julien Doan DO Primary Care Provider [phone] Encounters Date Type Department Care Team Description 03/21/2024 1:00 PM MGMT CONSULTANT Diagnostic [facility] Orthopaedic Surgery [address] [place] [address] 6th [place] [address] [place] [phone] Shabbir Coffey MD Paresthesia and pain of extremity (Primary Dx); Spinal deformity; Lumbar pain 03/14/2024 8:38 AM MGMT CONSULTANT - 03/14/2024 11:59 PM MGMT CONSULTANT Hospital Encounter [facility] Radiology [facility] [address] [place] [address] Spinal deformity Discharge Disposition: Discharge to home or self care 03/14/2024 9:30 AM MGMT CONSULTANT Office Visit [facility] Orthopaedic Surgery [address] [place] [address] 6th [place] [address] [place] [address] Francis Bhatti MD Spinal deformity (Primary Dx); Cervical pain; Lumbar pain; Back pain with radiation; Degeneration of intervertebral disc of lumbar region, unspecified whether pain present; Degenerative disc disease, cervical; Malignant neoplasm of transverse colon (CMS/HCC) (HCC) from Last 3 Months Allergies Active Allergy Reactions Criticality Noted Date Comments Chlorhexidine Hives High 03/26/2021 Codeine Nausea And Vomiting Low 03/22/2021 Meperidine Nausea And Vomiting Low 03/22/2021 Nitrofurantoin Monohyd/M-Cryst Fever Medium 12/04/2023 Body aches as well Sulfa (Sulfonamide Antibiotics) Swelling Medium 10/24/2011 Unclassified Drug Nausea And Vomiting 10/24/2011 Pt reports does not tolerate anesthesia and pain medications well. Medications FA-vit Fppcb-N-fmfh-vi tamin D3 0.8-2,000 mg-unit tablet Take by [...] 108 kg (238 lb) 03/14/2024 9:13 AM MGMT CONSULTANT Height 168.9 cm (5' 6.5 ) 03/14/2024 9:13 AM MGMT CONSULTANT Body Mass Index 37.84 03/14/2024 9:13 AM MGMT CONSULTANT Plan of Treatment Not on file Procedures Procedure Name Priority Date/Time Associated Diagnosis Comments XR SCOLIOSIS 6 OR MORE VIEWS Schedule Routine, Read Routine (OP Routine) 03/14/2024 9:00 AM MGMT CONSULTANT Spinal deformity from Last 3 Months Results * XR Scoliosis 6 or More Views (03/14/2024 9:00 AM MGMT CONSULTANT) Anatomical Region Laterality Modality Spine N/A Computed Radiogr aphy 03/14/2024 9:10 AM MGMT CONSULTANT Impressions 03/14/2024 9:10 AM MGMT CONSULTANT 1. ??Biconvex thoracolumbar scoliosis and decreased thoracic kyphosis with neutral truncal balance and mild right superior pelvic obliquity Electronically signed by: Ana Luisa Alves MD Narrative 03/14/2024 9:10 AM MGMT CONSULTANT EXAMINATION: XR SCOLIOSIS ??6 OR MORE VIEWS [...] Res ult from Last 3 Months Insurance [employer] [place] [employer] [place] Care Teams Prop Making Supervisor Relationship Specialty Start Date End Date Julien Doan DO [address] [place] [address] [place] [phone] PCP - General Internal Medicine 02/13/24
--- OUTSIDE RECORDS SUMMARY | 2024-06-06 08:57 | XMS_ITS | Clinical Summary ---
Author Organization [facility] Address [address] [place]: Epic Prelude ADT OLLIE HERRMANN [address] Care Team Providers Care Swatch Maker Name Role Phone Julien Doan DO Primary [...] tolerate anesthesia and pain medications well. Medications omeprazole (PriLOSEC) 10 mg Capsule, Delayed Release(E.C.) [...] Encounters Date Type Department Care Team Description 05/21/2024 External Device Data STL ABSTRACTION Provider, Abstract 03/21/2024 Telephone [facility] Surgical Spec [place] [address] [place] [address] [place] [address] Becky Mcknight RN physician referral 03/06/2024 External [...] drink = 0.6 oz pur e alcohol) Comments No Sex and Gender Information Value Date Recorded Sex Assigned at Not on file Legal Sex Female 1:40 PM LITHOGRAPHIC PROOFER APPRENTICE Gender Identity Not on file Sexual Orientation [...] st Contact Info) Description 06/13/2024 10:15 AM LITHOGRAPHIC PROOFER APPRENTICE Office Visit [facility] Oncology and Hematology - [place] [address] [address] [place] [address] Yosef Salmeron MD [address] [facility] [address] [place] [address] Health Maintenance Due Date Last Done Comments Pre-Diabetes and Diabetes Screening 1970 DTAP/TDAP/TD VACCINES (1 - Tdap) 02/16/1987 HEPATITIS B VACCINES (1 of 3 - 19+ 3-dose series) 02/16/1987 CERVICAL CANCER SCREENING 02/16/1998 BREAST CANCER SCREENING 2008 ZOSTER VACCINE (1 of 2) 02/16/2018 INFLUENZA VACCINE (#1) 2023 Preventative Visit- Commercial 05/08/2024 COLORECTAL SCREENING 12/16/2024 12/16/2021, 12/16/2021, 03/10/2021, Additional history exists Medical Devices Implanted Type Area Network Consultant Device Identifier Shelf Expiration Date Model / Serial / Lot Clip Hem[employer] Lrg [id number] - Csc - [id number] Implanted:Qty : 1 on 03/26/2021 by Katelyn Jack MD at [facility] Clip N/A: Abdomen TELEFLEX- WECK CLOSURE SYS 08/03/2025 [id number] / / [id number] Port Powerport Clearvue 8fr Mri [id number] - [id number] Implanted:Qty : 1 on 04/15/2021 by Katelyn Jack MD at [facility] Port Right: Chest CR BARD[employer] [id number] 06/07/2022 [id number] / / [id number] Procedures Procedure Name Priority Date/Time Associated Diagnosis Comments COLONOSCOPY REPORT 12/16/2021 11 :29 AM CDT from Last 3 Months or Most Recently Relevant to Health Maintenance Results * COLONOSCOPY REPORT (12/16/2021 11:29 AM CDT) Narrative Procedure Note Vikas Fung MD - 12/16/2021 11:28 AM CDT [facility] Endoscopy Patient Name: Sidney Birmingham Procedure Date: 12/16/2021 Date of : 1970 [...] Addenda: 0 Procedure Date: 12/16/2021 10:56:46 AM [address] [address] Vikas Fung MD GI PROCEDURE ORDERABLES Final Result from Last 3 Months or Most Recently Relevant to Health Maintenance Insurance RX [employer] Commercial BLUE PREFERRED Advance Directives For more information, please contact: [phone] * Full Code (Latest Code Status on [...] 7:10 PM 03/12/2021 12:49 AM Care Teams Swatch Maker Relationship Specialty Start Date End Date Julien Doan DO [address] [address] PCP - General Internal Medicine 09/12/22
--- OUTSIDE RECORDS SUMMARY | 2024-06-06 08:57 | XMS_ITS ---
Author Organization [facility] Address [address] [place]: Epic Prelude ADT CREOLLIE GARCIA [address] Care Team Providers Care Commissioning Editor Name Role Phone Julien Doan DO Primary Care Provider Active Problems Problem Noted Date Diagnosed Date Abdominal pain 03/08/2021 Hypokalemia 03/08/2021 Acute colitis Colonic mass Liver lesion Malignant neoplasm of transverse colon Current Treatment and Therapy Plans No current plan information found. Past Treatment and Therapy Plans No past plan information found. Lifetime Dose Tracking * Chemical Lifetime Dose Automatic Entry Manual Entr y Effective Dose 78.5 mSv 78.5 mSv 0 mSv Total DLP 5,434 DLP 5,434 DLP 0 DLP CTDIvol Max 57.5 mGy 57.5 mGy 0 mGy CTDIvol Min 49.8 mGy 49.8 mGy 0 mGy
[2024-06-06 09:33] LABS: Basophils Percent Auto 0.6 % (0.2-1.2); Eosinophils Absolute Auto 0.1 K/mm3 (0-0.3); Eosinophils Percent Auto 1.8 % (0-4.4); Hematocrit 38.8 % (37.0-47.0); Hemoglobin 12.5 g/dL (12.0-15.0); Immature Granulocyte Absolute 0.02 K/mm3 (0.00-0.031); Immature Granulocyte Percent A 0.4 % (0-0.5); Lymphocytes Absolute Auto 1.85 K/mm3 (0.9-3.2); Mean Corpuscular HGB Conc 32.2 g/dl (32-36); Mean Platelet Volume 9.3 fl (7.4-10.4); Monocytes Absolute Auto 0.3 K/mm3 (0.1-0.6); Monocytes Percent Auto 6.6 % (2.6-8.5); Neutrophils Absolute Auto 2.7 K/mm3 (1.3-6.7); Neutrophils Percent Auto 53.6 % (45.5-73.1); Platelet Count Result 212 k/mm3 (150-375); Red Blood Count 4.17 M/mm3 (4.2-5.4); Red Cell Distribution Width 12.9 % (11.5-14.5)
[2024-06-06 09:44] LABS: Alanine Aminotransferase 27 U/L (6-35); Albumin Level 4.4 g/dL (3.5-5.1); Alkaline Phosphatase 82 U/L (38-126); Anion Gap 10 mmol/L (4-12); Aspartate Amino Transferase 28 U/L (14-36); Bilirubin,Total 0.5 mg/dL (0.2-1.3); Blood Urea Nitrogen 13 mg/dL (7-17); Calcium 9.2 mg/dL (8.4-10.2); Carbon Dioxide 28 mmol/L (22-30); Chloride 102 mmol/L (98-107); Estimated Glomerular Filt Rate > 60; Glucose 132 mg/dL (65-110); Potassium 4.6 mmol/L (3.4-5.0); Sodium 140 mmol/L (137-145)
[2024-06-06 10:14] LABS: Carcinoembryonic Antigen 2.6 ng/mL (0.0-3.0)
== END 2024-06-06 08:34 | disposition home or self-care (01) ==
PROVIDERS: PCP Internal Medicine; Visit Provider Internal Medicine Hematology & Oncology
DX: C18.4 Malignant neoplasm of transverse colon (principal)
CPT/HCPCS: 36415; 74177; 80053; 82378; 85025; Q9967

== ENCOUNTER 2024-10-02 10:21 | Outpatient (CLI) | payer BC, SELFPAY ==
--- NOTE | ~2024-10-02 | DEXA_ITS ---
Bone Density Report Name: SIDNEY BIRMINGHAM Age: 54 Sex: Female Ethnicity: White Date of : 1970 Indication: postmenopausal; screening for osteoporosis; height loss; cancer; Referring Provider: AB HERNANDEZ Study: Bone densitometry was performed. Exam Date: October 02, 2024 Accession number: [id number] Bone Density: Region BMD T-score Z-score Classification AP Spine(L1-L4) 1.127 0.7 1.9 Normal Femoral Neck (Left) 0.851 0.0 1.1 Normal Total Hip (Left) 0.920 -0.2 0.6 Normal Femoral Neck (Right) 0.804 -0.4 0.7 Normal Total Hip (Right) 0.954 0.1 0.9 Normal Total Hip Mean 0.937 -0.1 0.8 Normal World Health Organization criteria for BMD impression classify patients as: Normal (T-score at or above -1.0), Osteopenia (T-score between -1.0 and -2.5), or Osteoporosis (T-score at or below -2.5). 10-year Fracture Risk: FRAX not reported because: All T-scores for Spine Total, Hip Total, Femoral Neck at or above -1.0 Previous Exams: Region Exam Age BMD T-score BMD Change BMD Change Date g/cm2 vs Baseline vs Previous AP Spine (L1-L4) 10/02/2024 54 1.127 0.7 0.043 (4.0%)* 0.043 (4.0%)* 04/27/2022 52 1.083 0.3 Total Hip(Left) 10/02/2024 54 0.920 -0.2 -0.031 (-3.3%) -0.031 (-3.3%) 04/27/2022 52 0.951 0.1 Total Hip(Right) 10/02/2024 54 0.954 0.1 0.048 (5.3%)* 0.048 (5.3%)* 04/27/2022 52 0.906 -0.3 *Denotes significance at 95% confidence level, LSC for AP Spine = 0.022 g/cm2, LSC for Total Hip = 0.027 g/cm2 Clinical Information Provided by Patient: Has used the following medications: Vitamin D Has the following medical conditions: Cancer Patient maximum height was 68.5 Menopause Age: 48 No regular weight bearing exercise Drinks caffeinated beverages Onset of menses at age 11 Number of children 2 Impression: The patient has normal bone mass. The BMD for the Total Hip(Left) decreased, changing by -3.3% since the last DXA exam. Discussion: BONE DENSITY IS ABOVE THE MINIMUM DESIRABLE LEVEL AT ALL SKELETAL SITES TESTED. This patient?s bone mineral density is above the minimum desirable level (T-score -1.0 or better) at all sites measured. The patient should follow a healthful lifestyle (good nutrition with adequate calcium and vitamin D, and appropriate weight-bearing exercise). Follow-Up: Consider repeating this study in 3 to 4 years to reassess this patient's status, or sooner if there is some new clinical indication. Reported by: CRISTIAN on 10/02/2024 11:02:00 AM. Reviewed, dictated and finalized at location A.
--- OUTSIDE RECORDS SUMMARY | 2024-10-02 10:28 | XMS_ITS | Clinical Summary ---
Author Organization [facility] Address [address] Espinon: Epic Prelude ADT OLLIE HERRMANN [address] Care Team Providers Care Sheeter Waxer Operator Name Role Phone Julien Doan DO [...] Encounters Date Type Department Care Team Description 08/05/2024 Abstract [facility] Gastroenterology [facility] [address] [facility] [address] [place] [address] Vikas Fung MD 07/24/2024 External Device Data STL ABSTRACTION Provider, Abstract 07/17/2024 External Device Data STL ABSTRACTION Provider, Abstract 07/16/2024 External Device Data STL ABSTRACTION Provider, Abstract 07/13/2024 External Device Data STL ABSTRACTION Provider, Abstract 07/12/2024 External Device Data STL ABSTRACTION Provider, Abstract 07/10/2024 External Device Data STL ABSTRACTION Provider, Abstract 07/09/2024 External Device Data STL ABSTRACTION Provider, Abstract [...] on file Legal Sex Female 1:40 PM PRODUCTION ASSEMBLY OPERATOR Gender Identity Not on file Sexual Orientation Not on file Last Filed Vital Signs Vital Sign Reading Time Taken Comments Blood Pressure 167/100 06/13/2024 10:08 AM PRODUCTION ASSEMBLY OPERATOR Pulse 69 06/13/2024 10:06 AM PRODUCTION ASSEMBLY OPERATOR Temperature 36.6 C (97.8 F) 06/13/2024 10:06 AM PRODUCTION ASSEMBLY OPERATOR Respiratory Rate 16 06/13/2024 10:0 6 AM PRODUCTION ASSEMBLY OPERATOR Oxygen Saturation 97% 06/13/2024 10: 06 AM PRODUCTION ASSEMBLY OPERATOR Inhaled Oxygen Concentration - - Weight 111.8 kg (246 lb 6.4 oz) 025 10:06 AM PRODUCTION ASSEMBLY OPERATOR Height 171.5 cm (5' 7.5) 12/16/2021 10 :49 AM CDT Body Mass Index 38.02 12/16/2021 10:49 AM CDT Plan of Treatment Upcoming Encounters Date Type Department Care Team (Latest Contact Info) Description 12/12/2024 11:00 AM CDT Office Visit [facility] On[facility] and Hematology - [facility] [address] [facility] [address] [place] [address] Yosef Salmeron MD [address] [facility] [address] [place] [address] 12/18/2024 9:00 AM CDT Hospital En[facility] Lab [address] [facility] [address] [place] [address] Vikas Fung MD [address] [facility] [address] [place] [address] Malignant neoplasm of transverse colon (CMS/HCC) 12/18/2024 9:00 AM CDT - 12/18/2024 9:45 AM CDT Surgery [facility] [address] [place] [address] Vikas Fung MD [address] [facility] [address] [place] [address] ESOPHAGOGASTRODUODENOSCOPY Scheduled Procedures Name Priority Associated Diagnoses Date/Ti ut ESOPHAGOGASTRODUODENOSCOPY Malignant neoplasm of transverse colon (CMS/HCC) Gastro-esophageal reflux disease without esophagitis 12/18/2024 9:00 AM CDT COLONOSCOPY Malignant neoplasm of transverse colon (CMS/HCC) Gastro-esophageal reflux disease without esophagitis 12/18/2024 9:00 AM CDT Health Maintenance Due Date Last Done Comments Pre-Diabetes and Diabetes Screening 1970 DTAP/TDAP/TD VACCINES (1 - Tdap) 02/16/1987 HEPATITIS B VACCINES (1 of 3 - 19+ 3-dose series) 02/16/1987 HPV/Cotest (21-29) 02/16/1989 CERVICAL CANCER SCREENING 02/16/1998 HPV/Cotest (30-65) 02/16/1998 PAP SMEAR 02/16/1998 BREAST CANCER SCREENING 2008 ZOSTER VACCINE (1 of 2) 02/16/2018 INFLUENZA VACCINE (#1) 2023 COLORECTAL SCREENING 12/16/2024 12/16/2021, 12/16/2021, 03/10/2021, Additional history exists Medical Devices Implanted Type Area Carbon Sequestration Plant Manager Device Identifier Shelf Expiration Date Model / Serial / Lot Clip Brigette [facility] [id number] - Csc - [id number] Implanted:Qty : 1 on 03/26/2021 by Katelyn Jack MD at [facility] Clip N/A: Abdomen TELEFLEX- WECK CLOSURE SYS 08/03/2025 [id number] / / [id number] Port [employer] Clearvue 8fr Mri [id number] - [id number] Implanted:Qty : 1 on 04/15/2021 by Katelyn Jack MD at [facility] Port Right: Chest CR BARD- [employer] [id number] 06/07/2022 [id number] / / [id number] Procedures Procedure Name Priority Date/Time Associated Diagnosis Comments COLONOSCOPY REPORT 12/16/2021 11 :29 AM CDT from Last 3 Months or Most Recently Relevant to Health Maintenance Results * COLONOSCOPY REPORT (12/16/2021 11:29 AM CDT) Narrative Procedure Note Vikas Fung MD - 12/16/2021 11:28 AM CDT [facility] Endoscopy Patient Name: Sidney Birmingham [...] Addenda: 0 Procedure Date: 12/16/2021 10:56:[address] [place] [address] Vikas Fung MD GI PROCEDURE ORDERABLES Final Result from Last 3 Months or Most Recently Relevant to Health Maintenance Insurance RX [employer] Commercial BCBS BLUE PREFERRED Advance Directives For more information, please contact: [phone] * Full Code (Latest Code Status on [...] 7:10 PM 03/12/2021 12:49 AM Care Teams Sheeter Waxer Operator Relationship Specialty Start Date End Date Julien Doan DO [address] [address] PCP - General Internal Medicine 09/12/22
--- OUTSIDE RECORDS SUMMARY | 2024-10-02 10:28 | XMS_ITS | Clinical Summary ---
Author Organization [facility] Address [facility] [place] [address] Care Team Providers Care Equip Tech Name Role Phone Julien Doan DO Primary Care Provider +1- [phone] Allergies Active Allergy Reactions Criticality Noted Date Comments Chlorhexidine Hives High 03/26/2021 Codeine Nausea And Vomiting Low 03/22/2021 Meperidine Nausea And Vomiting Low 03/22/2021 Nitrofurantoin Monohyd/M-Cryst Fever Medium 12/04/2023 Body aches as well Sulfa (Sulfonamide Antibiotics) Swelling Medium 10/24/2011 Unclassified Drug Nausea And Vomiting 10/24/2011 Pt reports does not tolerate anesthesia and pain medications well. Medications FA-vit Gfqir-Z-izca-vi tamin D3 0.8-2,000 mg-unit tablet Take by [...] lesion 03/14/2024 Malignant neoplasm of transverse colon Abdominal pain 03/08/2021 Hypokalemia 03/08/2021 Surgical History Surgery Date Site/Laterality Comments SECTION BOWEL RESECTION Medical History Medical History Date Comments Alcoholism (HCC) Anemia Arthritis Cancer (HCC) Heart murmur Hypertension Peripheral neuropathy Obesity [...] 108 kg (238 lb) 03/14/2024 9:13 AM COOLER SERVICER Height 168.9 cm (5' 6.5) 03/14/2024 9:13 AM COOLER SERVICER Body Mass Index 37.84 03/14/2024 9:13 AM COOLER SERVICER Plan of Treatment Health Maintenance Due Date Last Done Comments Breast Cancer Screening-Mammogram 1970 Cervical Cancer Screening 1968 Colon Cancer Screening-Colonoscopy 1968 Depression Screening 1968 Hepatitis C Screening 1968 DTaP/Tdap/Td Vaccine (1 - Tdap) 02/16/1979 Hepatitis B Screening 02/16/1986 Regular Well Visit/Exam 18-64 02/16/1986 Pneumococcal vaccine <65 (1 of 2 - PCV) 02/16/1987 Zoster Vaccine (1 of 2) 02/16/2018 Influenza Vaccine (Season Ended) 2025 Insurance [facility] [employer] [facility] [facility] Care Teams Equip Tech Relationship Specialty Start Date End Date Julien Doan DO PCP - General Internal Medicine 02/13/24
--- OUTSIDE RECORDS SUMMARY | 2024-10-02 10:28 | XMS_ITS ---
Author Organization [facility] Address [address] Espinon: Epic Prelude ADT CREOLLIE GARCIA [address] Care Team Providers Care Inside Account Executive Name Role Phone Julien Doan DO Primary [...]
--- OUTSIDE RECORDS SUMMARY | 2024-10-02 10:28 | XMS_ITS | Referral Summary ---
Author Organization [facility] Address [facility] [place] [address] Care Team Providers Care Ios Software Engineer Name Role Phone Julien Doan DO Primary Care Provider +1- [phone] Allergies Active Allergy Reactions Criticality Noted Date Comments Chlorhexidine Hives High 03/26/2021 Codeine Nausea And Vomiting Low 03/22/2021 Meperidine Nausea And Vomiting Low 03/22/2021 Nitrofurantoin Monohyd/M-Cryst Fever Medium 12/04/2023 Body aches as well Sulfa (Sulfonamide Antibiotics) Swelling Medium 10/24/2011 Unclassified Drug Nausea And Vomiting 10/24/2011 Pt reports does not tolerate anesthesia and pain medications well. Medications FA-vit Nofhs-I-scbu-vi tamin D3 0.8-2,000 mg-unit tablet Take by [...] transverse colon Abdominal pain 03/08/2021 Hypokalemia 03/08/2021 Social History [...] 108 kg (238 lb) 03/14/2024 9:13 AM RESIDENT PHYSICIAN IN RADIOLOGY Height 168.9 cm (5' 6.5) 03/14/2024 9:13 AM RESIDENT PHYSICIAN IN RADIOLOGY Body Mass Index 37.84 03/14/2024 9:13 AM RESIDENT PHYSICIAN IN RADIOLOGY Plan of Treatment Not on file Insurance [employer] [place] [employer] [place] Care Teams Ios Software Engineer Relationship Specialty Start Date End Date Julien Doan DO PCP - General Internal Medicine 02/13/24
== END 2024-10-02 10:22 | disposition home or self-care (01) ==
LOC: ANHIMG 10:24
PROVIDERS: PCP Internal Medicine; Visit Provider Clinical Nurse Specialist
DX: Z78.0 Asymptomatic menopausal state (principal)
CPT/HCPCS: 77080

== ENCOUNTER 2024-12-02 09:42 | Outpatient (CLI) | payer BC, SELFPAY ==
[2024-12-02 10:05] LABS: Hematocrit 38.8 % (37.0-47.0); Hemoglobin 13.0 g/dL (12.0-15.0); Immature Granulocyte Percent A 0.0 % (0-0.5); Lymphocytes Absolute Auto 1.79 K/mm3 (0.9-3.2); Mean Corpuscular HGB Conc 33.5 g/dl (32-36); Mean Corpuscular Hemoglobin 30.4 pg (26-34); Mean Corpuscular Volume 90.7 fl (80-100); Nucleated Red Blood Cells Absolute Auto 0.000 K/mm3 (0.0-0.012); Nucleated Red Blood Cells Perc 0.0 % (0.0-0.2); Platelet Count Result 178 k/mm3 (150-375); Red Blood Count 4.28 M/mm3 (4.2-5.4); White Blood Count 4.2 K/mm3 (4.5-10.0)
--- OUTSIDE RECORDS SUMMARY | 2024-12-02 10:05 | XMS_ITS | Clinical Summary ---
Author Organization [facility] Address [facility] [place] [address] Care Team Providers Care Meter Record Clerk Name Role Phone Julien Doan DO Primary Care Provider +1- [phone] Allergies Active Allergy Reactions Criticality Noted Date Comments Chlorhexidine Hives High 03/26/2021 Codeine Nausea And Vomiting Low 03/22/2021 Meperidine Nausea And Vomiting Low 03/22/2021 Nitrofurantoin Monohyd/M-Cryst Fever Medium 12/04/2023 Body aches as well Sulfa (Sulfonamide Antibiotics) Swelling Medium 10/24/2011 Unclassified Drug Nausea And Vomiting 10/24/2011 Pt reports does not tolerate anesthesia and pain medications well. Medications FA-vit Yslln-T-akju-vi tamin D3 0.8-2,000 mg-unit tablet Take by [...] transverse colon Abdominal pain 03/08/2021 Hypokalemia 03/08/2021 Encounters Date Type Department Care Team Description 11/07/2024 2:00 PM CDT Therapy [facility] Physical Therapy [address] [facility] [address] [place] [address] Papo Nieves DPT Back pain with radiation (Primary Dx); Spinal deformity; Lumbar pain 11/07/2024 Plan of Care Documentation [facility] Physical Therapy [address] [facility] [address] [place] [address] 10/28/2024 7:30 AM CDT Office Visit [facility] Orthopaedic Surgery [facility] 6th [place] [address] [place] [address] Francis Bhatti MD Malignant neoplasm of transverse colon (HCC) (Primary Dx); Lumbar spine pain; Idiopathic scoliosis in adult patient; Degeneration of intervertebral disc of lumbar region with discogenic back pain and lower extremity pain; Degenerative disc disease, cervical 10/28/2024 Orders Only [facility] Orthopaedic Surgery [address] [place] [address] 6th [place] [address] [place] [address] Francis Bhatti MD Back pain with radiation (Primary Dx); Spinal deformity; Lumbar pain from Last 3 Months Surgical History Surgery [...] Packs/Day Years Used Date Smoking Tobacco: Never Tobacco Cessation:Counseling Given: Not Answered Comments Unknown Sex and Gender Information Value [...] - Inhaled Oxygen Concentration - - Weight 112 kg (247 lb) 10/28/2024 7:39 AM CDT Height 168.9 cm (5' 6.5) 10/28/2024 7:39 AM CDT Body Mass Index 39.27 10/28/2024 7:39 AM CDT Plan of Treatment Health Maintenance Due Date Last Done Comments Breast Cancer Screening-Mammogram 1970 Cervical Cancer Screening 1968 Colon Cancer Screening-Colonoscopy 1968 Depression Screening 1968 Hepatitis C Screening 1968 DTaP/Tdap/Td Vaccine (1 - Tdap) 02/16/1979 Hepatitis B Screening 02/16/1986 Regular Well Visit/Exam 18-64 02/16/1986 Pneumococcal vaccine <65 (1 of 2 - PCV) 02/16/1987 Zoster Vaccine (1 of 2) 02/16/2018 Influenza Vaccine (#1) 2025 Insurance [employer] [place] [employer] [place] Care Teams Meter Record Clerk Relationship Specialty Start Date End Date Julien Doan DO PCP - General Internal Medicine 02/13/24
--- OUTSIDE RECORDS SUMMARY | 2024-12-02 10:05 | XMS_ITS | Referral Summary ---
Author Organization [facility] Address [address] [place] [address] Care Team Providers Care Hand Brush Filler Name Role Phone Julien Doan DO Primary Care Provider [phone] Encounters Date Type Department Care Team Description 11/07/2024 Plan of Care Documentation [facility] Physical Therapy [address] [place] [phone] 11/07/2024 2:00 PM CDT Therapy [facility] Physical Therapy [address] [place] [phone] Papo Nieves, AMER[place] Back pain with radiation (Primary Dx); Spinal deformity; Lumbar pain 10/28/2024 Orders Only [facility] Orthopaedic Surgery [address] [place] [address] [place] [address] Francis Bhatti MD Back pain with radiation (Primary Dx); Spinal deformity; Lumbar pain 10/28/2024 7:30 AM CDT Office Visit [facility] Orthopaedic Surgery [address] [place] [address] [place] [address] Francis Bhatti MD Malignant neoplasm of transverse colon (HCC) (Primary Dx); Lumbar spine pain; Idiopathic scoliosis in adult patient; Degeneration of intervertebral disc of lumbar region with discogenic back pain and lower extremity pain; Degenerative disc disease, cervical from Last 3 Months Allergies Active Allergy Reactions Criticality Noted Date Comments Chlorhexidine Hives High 03/26/2021 Codeine Nausea And Vomiting Low 03/22/2021 Meperidine Nausea And Vomiting Low 03/22/2021 Nitrofurantoin Monohyd/M-Cryst Fever Medium 12/04/2023 Body aches as well Sulfa (Sulfonamide Antibiotics) Swelling Medium 10/24/2011 Unclassified Drug Nausea And Vomiting 10/24/2011 Pt reports does not tolerate anesthesia and pain medications well. Medications FA-vit Quijr-M-mqxa-vi tamin D3 0.8-2,000 mg-unit tablet Take by [...] 10/28/2024 7:39 AM CDT Plan of Treatment Not on file Insurance [facility] BLUE ACCESS [place] Care Teams Hand Brush Filler Relationship Specialty Start Date End Date Julien Doan DO PCP - General Internal Medicine 02/13/24
--- OUTSIDE RECORDS SUMMARY | 2024-12-02 10:05 | XMS_ITS ---
Author Organization [facility] Address [address] [place]: Epic Prelude ADT CREOLLIE GARCIA [address] Care Team Providers Care Electronics Teacher Name Role Phone Julien Doan DO [...]
--- OUTSIDE RECORDS SUMMARY | 2024-12-02 10:06 | XMS_ITS | Clinical Summary ---
Author Organization [facility] Address [address] Attn: Epic Prelude ADT CREOLLIE GARCIA [address] Care Team Providers Care Heel Painter Name Role Phone Julien Doan DO Primary [...] C 20-FOLIC ACID ORAL) Take by mouth. Activ e Lactobac 40-Bifido 3-S.thermop (Probiotic) 100 billion cell Capsule Take by mouth. Ac tive cholecalcifero l, Vitamin D3, (VITAMIN D3) 25 mcg (1,000 unit) Capsule Take by mouth daily. Active MAGNESIUM OXIDE ORAL Take by mouth. Acti ve peg 3350-electroly janine (COLYTE) 240-22.72-6.72 -5.84 gram solution Take 4,000 mL by mouth one time only for 1 dose. Follow prescribing physician's instructions ONLY. These were sent by mail or email. 4000 mL 5 07/22/20 25 Active Problems Problem Noted Date Diagnosed Date Abdominal pain 03/08/2021 Hypokalemia 03/08/2021 Acute colitis Colonic mass Liver lesion Malignant neoplasm of transverse colon Family History Medical History Relation Name Comments [...] on file Legal Sex Female 1:40 PM BRAKE TESTER Gender Identity Not on file Sexual Orientation Not on file Last Filed Vital Signs Vital Sign Reading Time Taken Comments Blood Pressure 167/100 06/13/2024 10:08 AM BRAKE TESTER Pulse 69 06/13/2024 10:06 AM BRAKE TESTER Temperature 36.6 C (97.8 F) 06/13/2024 10:06 AM BRAKE TESTER Respiratory Rate 16 06/13/2024 10:06 AM BRAKE TESTER Oxygen Saturation 97% 06/13/2024 10:06 AM BRAKE TESTER Inhaled Oxygen Concentration - - Weight 106.1 kg (234 lb) 11/26/2024 2:10 PM CDT Height 170.2 cm (5' 7) 11/26/2024 2:10 PM CDT Body Mass Index 36.65 11/26/2024 2:10 PM CDT Plan of Treatment Upcoming Encounters Date Type Department Care Team (Latest Contact Info) Description 12/12/2024 11:00 AM CDT Office Visit [facility] Oncology and Hematology - [place] [address] [facility] [address] [place] [address] Yosef Salmeron MD [address] [facility] [facility] [address] [place] [address] 12/18/2024 9:15 AM CDT Hospital Encounter [facility] Lab S [address] [place] [address] Vikas Fung MD [address] [place] [address] Malignant neoplasm of transverse colon (CMS/HCC) 12/18/2024 9:15 AM CDT - 12/18/2024 10:00 AM CDT Surgery [facility] GI Lab S [facility] [address] [facility] [address] [facility] [place] [address] Vikas Fung MD [address] [facility] [address] [place] [address] ESOPHAGOGASTRODUODENOSCOPY Scheduled Procedures Name Priority Associated Diagnoses Date/Ti me ESOPHAGOGASTRODUODENOSCOPY Malignant neoplasm of transverse colon (CMS/HCC) Gastro-esophageal reflux disease without esophagitis 12/18/2024 9:15 AM CDT COLONOSCOPY Malignant neoplasm of transverse colon (CMS/HCC) Gastro-esophageal reflux disease without esophagitis 12/18/2024 9:15 AM CDT Health Maintenance Due Date Last Done Comments Pre-Diabetes and Diabetes Screening 1970 DTAP/TDAP/TD VACCINES (1 - Tdap) 02/16/1987 HEPATITIS B VACCINES (1 of 3 - 19+ 3-dose series) 02/16/1987 HPV/Cotest (21-29) 02/16/1989 CERVICAL CANCER SCREENING 02/16/1998 HPV/Cotest (30-65) 02/16/1998 PAP SMEAR 02/16/1998 BREAST CANCER SCREENING 2008 ZOSTER VACCINE (1 of 2) 02/16/2018 INFLUENZA VACCINE (#1) 2024 COLORECTAL SCREENING 12/16/2024 12/16/2021, 12/16/2021, 03/10/2021, Additional history exists Medical Devices Implanted Type Area Ice Carver Device Identifier Shelf Expiration Date Model / Serial / Lot Clip Hemolok Lrg [id number] - Csc - [id number] Implanted:Qty : 1 on 03/26/2021 by Katelyn Jack MD at [facility] Clip N/A: Abdomen TELEFLEX- WECK CLOSURE SYS 08/03/2025 [id number] / / [id number] Port Powerport Clearvue 8fr Mri [id number] - [id number] Implanted:Qty : 1 on 04/15/2021 by Katelyn Jack MD at [facility] Port Right: Chest CR BARD[employer] [id number] 06/07/2022 [id number] / / [id number] Procedures Procedure Name Priority Date/Time Associated Diagnosis Comments COLONOSCOPY REPORT 12/16/2021 11 :29 AM CDT from Last 3 Months or Most Recently Relevant to Health Maintenance Results * COLONOSCOPY REPORT (12/16/2021 11:29 AM CDT) Narrative Procedure Note Vikas Fung MD - 12/16/2021 11:28 AM CDT [facility] Endoscopy [facility] Patient Name: Sidney Birmingham Procedure Date: [...] Addenda: 0 Procedure Date: 12/16/2021 10:56:[id number] [place] [address] Vikas Fung MD GI PROCEDURE ORDERABLES Final Result from Last 3 Months or Most Recently Relevant to Health Maintenance Insurance RX [employer] Commercial PREFERRED Advance Directives For more information, please contact: [phone] * Full Code (Latest Code Status on [...] 7:10 PM 03/12/2021 12:49 AM Care Teams Heel Painter Relationship Specialty Start Date End Date Julien Doan DO [address] [address] PCP - General Internal Medicine 09/12/22
[2024-12-02 11:24] LABS: Alanine Aminotransferase 27 U/L (6-35); Albumin Level 4.7 g/dL (3.5-5.1); Alkaline Phosphatase 75 U/L (38-126); Anion Gap 10 mmol/L (4-12); Aspartate Amino Transferase 36 U/L (14-36); Bilirubin,Total 0.6 mg/dL (0.2-1.3); Blood Urea Nitrogen 12 mg/dL (7-17); Calcium 9.4 mg/dL (8.4-10.2); Carbon Dioxide 24 mmol/L (22-30); Chloride 104 mmol/L (98-107); Estimated Glomerular Filt Rate > 60; Glucose 109 mg/dL (65-110); Potassium 4.1 mmol/L (3.4-5.0); Sodium 138 mmol/L (137-145); Total Protein 7.9 g/dL (6.3-8.2)
[2024-12-02 12:00] LABS: Carcinoembryonic Antigen 3.0 ng/mL (0.0-3.0)
== END 2024-12-02 09:43 | disposition home or self-care (01) ==
LOC: ANHLAB 09:42
PROVIDERS: PCP Internal Medicine; Visit Provider Internal Medicine Hematology & Oncology
DX: C18.4 Malignant neoplasm of transverse colon (principal)
CPT/HCPCS: 36415; 80053; 82378; 85025

== ENCOUNTER 2025-02-11 09:53 | Outpatient (CLI) | payer BC, SELFPAY ==
[2025-02-11 10:14] LABS: Hematocrit 42.1 % (37.0-47.0); Hemoglobin 13.4 g/dL (12.0-15.0); Immature Granulocyte Percent A 0.2 % (0-0.5); Lymphocytes Absolute Auto 1.68 K/mm3 (0.9-3.2); Mean Corpuscular HGB Conc 31.8 g/dl (32-36); Mean Corpuscular Hemoglobin 29.3 pg (26-34); Mean Corpuscular Volume 91.9 fl (80-100); Nucleated Red Blood Cells Absolute Auto 0.000 K/mm3 (0.0-0.012); Nucleated Red Blood Cells Perc 0.0 % (0.0-0.2); Platelet Count Result 213 k/mm3 (150-375); Red Blood Count 4.58 M/mm3 (4.2-5.4); White Blood Count 5.1 K/mm3 (4.5-10.0)
[2025-02-11 10:33] LABS: Alanine Aminotransferase 19 U/L (6-35); Albumin Level 4.9 g/dL (3.5-5.1); Alkaline Phosphatase 86 U/L (38-126); Anion Gap 9 mmol/L (4-12); Aspartate Amino Transferase 28 U/L (14-36); Bilirubin,Total 0.8 mg/dL (0.2-1.3); Blood Urea Nitrogen 9 mg/dL (7-17); Calcium 9.5 mg/dL (8.4-10.2); Carbon Dioxide 30 mmol/L (22-30); Chloride 102 mmol/L (98-107); Cholesterol 255 mg/dL (0-200); Estimated Glomerular Filt Rate > 60; Glucose 110 mg/dL (65-110); HDL Direct 59 mg/dL; Magnesium 2.4 mg/dL (1.6-2.3); Potassium 4.0 mmol/L (3.4-5.0); Sodium 141 mmol/L (137-145); Total Protein 8.3 g/dL (6.3-8.2); Triglycerides 119 mg/dL (<150)
--- OUTSIDE RECORDS SUMMARY | 2025-02-11 10:38 | XMS_ITS | Clinical Summary ---
Author Organization [facility] Address [address] [place] [address] Care Team Providers Care Jukebox Coin Collector Name Role Phone Julien Doan DO Primary Care Provider [phone] Allergies Active Allergy Reactions Criticality Noted Date Comments Chlorhexidine Hives High 03/26/2021 Codeine Nausea And Vomiting Low 03/22/2021 Meperidine Nausea And Vomiting Low 03/22/2021 Nitrofurantoin Monohyd/M-Cryst Fever Medium 12/04/2023 Body aches as well Sulfa (Sulfonamide Antibiotics) Swelling Medium 10/24/2011 Unclassified Drug Nausea And Vomiting 10/24/2011 Pt reports does not tolerate anesthesia and pain medications well. Medications FA-vit Jlibb-W-uvvk-vi tamin D3 0.8-2,000 mg-unit tablet Take by [...] 2) 02/16/2018 Influenza Vaccine (#1) 2025 Insurance [facility] Care Teams Jukebox Coin Collector Relationship Specialty Start Date End Date Julien Doan DO PCP - General Internal Medicine 02/13/24
--- OUTSIDE RECORDS SUMMARY | 2025-02-11 10:38 | XMS_ITS ---
Author Organization [facility] Address [address] [place]: Epic Prelude ADT CREOLLIE GARCIA [address] Care Team Providers Care Microwave Supervisor Name Role Phone Julien Doan DO [...]
--- OUTSIDE RECORDS SUMMARY | 2025-02-11 10:38 | XMS_ITS | Clinical Summary ---
Author Organization [facility] Address [address] Attn: Epic Prelude ADT OLLIE HERRMANN [address] Care Team Providers Care Door To Door Salesperson Name Role Phone Julien Doan DO Primary [...] Take 20 mg by mouth daily. Active Lactobac 40-Bifido 3-S.thermop (Probiotic) 100 billion cell Capsule Take by mouth. Ac tive cephALEXin (KEFLEX) 250 mg capsule Take 250 mg by mouth see administration instructions. As needed for after intercourse, or experiencing UTI symptoms Active Active Problems Problem Noted Date Diagnosed Date Abdominal pain 03/08/2021 Hypokalemia 03/08/2021 Acute colitis Colonic mass Liver lesion Malignant neoplasm of transverse colon Encounters Date Type Department Care Team Description 5 External Device Data STL ABSTRACTION Provider, Abstract 5 Results Follow-Up [facility] Gastroenterology [address] [address] [place] [address] Vikas Fung MD PATHOLOGY 5 9:15 AM CDT - 5 10:00 AM CDT Surgery [facility] GI Lab S [address] [place] [address] Vikas Fung MD ESOPHAGOGASTRODUODENOSCOPY 5 8:49 AM CDT Anesthesia Event [facility] GI Lab S [address] [place] [address] Alex Carrasco MD 5 7:52 AM CDT - 5 10:09 AM CDT Hospital Encounter [facility] GI Lab S [address] [place] [address] Vikas Fung MD Malignant neoplasm of transverse colon (CMS/HCC) Discharge Disposition: Home or Self Care 5 11:00 AM CDT Office Visit [facility] Oncology and Hematology [address] [address] Yosef Salmeron MD Malignant neoplasm of transverse colon (CMS/HCC) (Primary Dx) 5 External Device Data STL ABSTRACTION Provider, Abstract [...] drink = 0.6 oz pur e alcohol) Feeling Safe Answer Date Recorded Are you in a relationship wi th someone who hurts you emotionally and/or physically? No 12/18/2024 Comments No Sex and Gender Information Value Date Recorded Sex Assigned at Not on file Legal Sex Female 1:40 PM ANODIZER Gender Identity Not on file Sexual Orientation Not on file Last Filed Vital Signs Vital Sign Reading Time Taken Comments Blood Pressure 123/57 12/18/2024 9:45 AM CDT Pulse 60 12/18/2024 9:45 AM CDT Temperature 36.4 C (97.5 F) 12/18/2024 9:31 AM CDT Respiratory Rate 18 12/18/2024 9:45 AM CDT Oxygen Saturation 97% 12/18/2024 9:45 AM CDT Inhaled Oxygen Concentration - - Weight 103.4 kg (228 lb) 12/18/2024 8:03 AM CDT Height 167.6 cm (5' 6) 12/18/2024 8:03 AM CDT Body Mass Index 36.8 12/18/2024 8:03 AM CDT Plan of Treatment Upcoming Encounters Date Type Department Care Team (Late st Contact Info) Description 06/19/2025 10:00 AM ANODIZER Office Visit [facility] Oncology and Hematology - [place]ym[place] [address] [facility] [address] [place] [address] Yosef Salmeron MD [address] [facility] [address] [place] [address] Health Maintenance Due Date Last Done Comments Pre-Diabetes and Diabetes Screening 1970 DTAP/TDAP/TD VACCINES (1 - Tdap) 02/16/1987 HEPATITIS B VACCINES (1 of 3 - 19+ 3-dose series) 02/16/1987 HPV/Cotest (21-29) 02/16/1989 CERVICAL CANCER SCREENING 02/16/1998 HPV/Cotest (30-65) 02/16/1998 PAP SMEAR 02/16/1998 BREAST CANCER SCREENING 2008 ZOSTER VACCINE (1 of 2) 02/16/2018 INFLUENZA VACCINE (#1) 2024 COLORECTAL SCREENING 12/18/2029 12/18/2024, 12/18/2024, 12/16/2021, Additional history exists Medical Devices Implanted Type Area [employer] Device Identifier Shelf Expiration Date Model / Serial / Lot Clip Hemolok Lrg [id number] - Csc - [id number] Implanted:Qty : 1 on 03/26/2021 by Katelyn Jack MD at [facility] Clip N/A: Abdomen TELEFLEX- WECK CLOSURE SYS 08/03/2025 [id number] / / [id number] Port Power[employer] Clearvue 8fr Mri [id number] - [id number] Implanted:Qty : 1 on 04/15/2021 by Katelyn Jack MD at [facility] Port Right: Chest CR BARD[employer] [id number] 06/07/2022 [id number] / / [id number] Procedures Procedure Name Priority Date/Time Associated Diagnosis Comments UPPER ENDOSCOPY REPORT 9:43 AM CDT COLONOSCOPY REPORT 12/18/2024 9:41 AM CDT PATHOLOGY Pathology 12/18/2024 9:29 AM CDT Malignant neoplasm of transverse colon (CMS/HCC) Gastro-esophagea l reflux disease without esophagitis WI COLONOSCOPY FLX DX W/RAULITO J SPEC WHEN PFRMD 12/18/2024 9:15 AM CDT Malignant neoplasm of transverse colon (CMS/HCC) Gastro-esophagea l reflux disease without esophagitis WI ESOPHAGOGASTRODUODENOSCOP Y TRANSORAL DIAGNOSTIC 12/18/2024 9:15 AM CDT Malignant neoplasm of transverse colon (CMS/HCC) Gastro-esophagea l reflux disease without esophagitis from Last 3 Months Results * UPPER ENDOSCOPY REPORT (12/18/2024 9:43 AM CDT) Narrative Procedure Note Vikas Fung MD - 12/18/2024 9:43 AM CDT [facility] Endoscopy Patient Name: Sidney Birmingham Procedure Date: 12/18/2024 Date of : 1970 Attending MD: Vikas Fung MD, Procedure: Upper GI endoscopy Indications: Heartburn. Symptoms began around the time of colon cancer treatment in . Patient reports symptoms currently controlled. No dysphagia or alarm symptoms. Providers: Vikas Fung MD Referring MD: Julien Doan Medicines: Monitored Anesthesia Care Complications: No immediate [...] monitoring, and direct observation were performed. The Endoscope was introduced through the mouth, and advanced to the third part of duodenum. Estimated Blood Loss: Estimated blood loss: none. Findings: The examined esophagus was normal. The entire examined stomach was normal. The examined duodenum was normal. Impression: - Normal esophagus. - Normal stomach. - Normal examined duodenum. - No specimens collected. Recommendation: - See GERD handout. - Use lowest effective acid suppression. - Continue follow up with referring physician. Follow up in GI office if needed. Vikas Fung MD 12/18/2024 9:43:49 AM This report has been signed electronically. Number of Addenda: [address]; [place] [address] [place] Vikas Fung MD GI PROCEDURE ORDERABLES Final Result * COLONOSCOPY REPORT (12/18/2024 9:41 AM CDT) Narrative Procedure Note Vikas Fung MD - 12/18/2024 9:41 AM CDT [facility] Endoscopy Patient Name: Sidney Birmingham Procedure Date: 12/18/2024 Date of : 1970 Attending MD: Vikas Fung MD, Procedure: Colonoscopy Indications: High risk colon cancer surveillance: Personal history of colon cancer. Transverse colon cancer March 2021. No family history. No polyps on last colonoscopy December 2021. Providers: Vikas Fung MD Referring MD: Julien Doan Medicines: Monitored Anesthesia Care Complications: No immediate [...] monitoring, and direct observation were performed. The was introduced through the anus and advanced to the terminal ileum. The quality of the bowel preparation was excellent. Exam included multiple passes and narrow band imaging. Estimated Blood Loss: Estimated blood loss: none. Findings: There was evidence of a prior functional end-to-end colo-colonic anastomosis in the distal transverse colon. This was patent and was characterized by healthy appearing mucosa. Multiple diverticula were found in the entire colon. Most pronounced in the left colon. A 5 mm polyp was found in the proximal transverse colon. The polyp was sessile. The polyp was removed with a cold snare. Resection and retrieval were complete. External and internal hemorrhoids were found during retroflexion and during perianal exam. The hemorrhoids were mild/moderate. The terminal ileum appeared normal. Impression: - Patent functional end-to-end colo-colonic anastomosis, characterized by healthy appearing mucosa. - Diverticulosis in the entire examined colon. - One 5 mm polyp in the proximal transverse colon, removed with a cold snare. Resected and retrieved. - External and internal hemorrhoids. - The examined portion of the ileum was normal. Recommendation: - Await pathology results. - Repeat colonoscopy in 5 years for surveillance. - See diverticulosis and hemorrhoid handouts. - Colonoscopy cannot completely eliminate colon cancer risk during the interval before the next recommended colonoscopy. Notify primary care provider or GI if new family history arises or if future symptoms such as significant bowel habit change or blood in stool. - First degree relatives (children, siblings and parents) should begin colon cancer screening with colonoscopy at age 40. - Continue follow up with oncologist. Vikas Fung MD 12/18/2024 9:41:22 AM This report has been signed electronically. Number of Addenda: [address]; [place] [address] Vikas Fung MD GI PROCEDURE ORDERABLES Final Result * PATHOLOGY (12/18/2024 9:29 AM CDT) CASE REPORT Surgical Pathology R eport Case: [id number] Authorizing Provider: Vikas Fung MD Collected: 12/18/2024 09:29 AM Ordering Location: [facility] GI Lab [address] Received: 12/18/2024 09:57 AM Pathologist: Neal Valentino MD Specimen: Colon, transverse, polyp x1 2:40 PM CDT [facility] FINAL DIAGNOSIS Colon, transverse, polypectomy x 1: - Hyperplastic polyp 2:40 PM CDT [facility] at 1440 CDT GROSS DESCRIPTION Received in one container labeled Sidney Birmingham and transverse colon polyp x 1 is 1 piece of pink-dorsey tissue measuring 0.4 x 0.3 x 0.2 cm. It is entirely submitted in cassette A1. ELH 5 2:40 PM T [facility] MICROSCOPIC DESCRIPTION The slides are labeled [id number] and Sidney Birmingham. Sections show a hyperplastic polyp. 5 2:40 PM T [facility] OPERATIVE PROCEDURE 1: ESOPHAGOGASTRODUODENOSCOP Y 2: COLONOSCOPY 5 2:40 PM [facility] CLINICAL INFORMATION Malignant neoplasm of transverse colon (CMS/HCC) [C18.4] K21.9 (ICD-10-CM) - Gastro-esophageal reflux disease without esophagitis C18.4-Malignant neoplasm of transverse colon (CMS/HCC) K21.8-Btwqjq-ibscweczdm reflux disease without esophagitis 5 2:40 PM T [facility] COMMENT Special stain, immunohistochemical, and/or in situ hybridization results are interpreted with controls that demonstrate appropriate staining reactions. Note on use of immunohistochemistry reagents and in situ hybridization probes: These tests were developed and their performance characteristics determined by [facility], Department of Laboratory Medicine. It has not [...] part or completely in the following laboratories: [facility], CLIA #[id number] [address] [place] [address] [facility], CLIA #[id number] [address] [place] [address] [facility], CLIA #[id number] [address] [place] [address] This report was created with the Dragon voice-activated dictation system. Inherent to this system is the possibility of syntax, grammar, punctuation and other errors that could impact the interpretation of the report. If there are interpretative questions about aspects of this report, please contact the performing pathologist. 2:40 PM CDT [facility] Tissue TRANSVERSE COLON STRUCTURE / Unknown Collection / Unknown 12/18/2024 9:29 AM CDT 12/18/2024 9:57 AM CDT Vikas Fung MD PATHOLOGY/CYTOLOGY ORDERABLES Final Result [id number] [address] [place] [address] from Last 3 Months Insurance RX [employer] Commercial PREFERRED [employer] BLUE PREFERRED Advance Directives For more information, please contact: [phone] * Full Code (Latest Code Status on File) Date Activated Date Inactivated Comments 12/18/2024 8:06 AM 12/18/2024 12:24 PM * Full Code Date Activated Date Inactivated Comments 12/16/2021 10:52 AM 12/16/2021 2:16 PM * Full Code Date Activated Date Inactivated Comments 04/15/2021 7:00 AM 04/15/2021 4:40 PM * Full Code Date Activated Date Inactivated Comments 03/26/2021 9:10 PM 03/28/2021 7:44 PM * Full Code Date Activated Date Inactivated Comments 03/26/2021 10:26 AM 03/26/2021 9:09 PM Care Teams Door To Door Salesperson Relationship Specialty Start Date End Date Julien Doan DO [address] [address] PCP - General Internal Medicine 09/12/22
[2025-02-11 10:46] LABS: Hemoglobin A1C 5.7 % (<5.7)
[2025-02-11 11:08] LABS: Thyroid Stimulating Hormone 1.020 uIU/mL (0.465-4.680)
[2025-02-11 11:32] LABS: Vitamin B12 > 1000.0 pg/mL (239-931)
== END 2025-02-11 09:54 | disposition home or self-care (01) ==
LOC: ANHLAB 09:54
PROVIDERS: PCP Internal Medicine; Visit Provider Clinical Nurse Specialist
DX: E78.5 Hyperlipidemia, unspecified (principal); I10 Essential (primary) hypertension; K21.9 Gastro-esophageal reflux disease without esophagitis; K76.0 Fatty (change of) liver, not elsewhere classified; R73.01 Impaired fasting glucose; Z13.29 Encounter for screening for other suspected endocrine disorder; E55.9 Vitamin D deficiency, unspecified
CPT/HCPCS: 36415; 80053; 80061; 82306; 82607; 83036; 83735; 84443; 85025